=== PATIENT | female | born 1940 | race Caucasian/White ===

== ENCOUNTER 2017-03-31 13:25 | Emergency (ER) | payer MEDICARE, OTHER ==
[~2017-03-31] VITALS: Ht 154.9 cm; Wt 52.6 kg
[~2017-03-31 13:25] MED LIST: ALPRAZOLAM0.25 MG PO; ALPRAZOLAM0.5 MG PO; ASPIRIN EC81 MG PO; BACTRIM DS TAB1 EACH PO; FLUOXETINE HCL20 MG PO; LANTUS100 UNITS/ SUB-Q; LASIX40 MG PO; METFORMIN HCL500 MG PO; METHOCARBAMOL750 MG PO; NORCO 10-325 T1 EACH PO; NORCO 5-325 TA1 EACH PO; NOVOLIN R100 UNIT/1 SUB-Q; OMEPRAZOLE20 MG PO; PREDNISONE10 MG PO; PREDNISONE20 MG PO; PROAIR HFA8.5 GM IH; QVAR7.3 GM IH; SINGULAIR10 MG PO; SOMA350 MG PO; ZESTRIL10 MG PO
[2017-03-31] MEDS ORDERED: DOXYCYCLINE HY100 MG PO (14:19)
== END 2017-03-31 14:41 | disposition home or self-care (01) ==
LOC: ED 13:25
DX: L03.114 Cellulitis of left upper limb (principal); S51.851A Open bite of right forearm, initial encounter; E11.9 Type 2 diabetes mellitus without complications; J44.9 Chronic obstructive pulmonary disease, unspecified; I25.2 Old myocardial infarction; F17.200 Nicotine dependence, unspecified, uncomplicated; Z88.0 Allergy status to penicillin; Z91.030 Bee allergy status; Z79.899 Other long term (current) drug therapy; Z79.891 Long term (current) use of opiate analgesic; Z79.82 Long term (current) use of aspirin; Z79.84 Long term (current) use of oral hypoglycemic drugs; W54.0XXA Bitten by dog, initial encounter
CPT/HCPCS: 99283

== ENCOUNTER 2019-09-13 16:18 | Emergency (ER) | payer MEDICARE ==
[~2019-09-13] VITALS: Ht 154.9 cm; Wt 52.6 kg
[~2019-09-13 16:18] MED LIST changes: +DOXYCYCLINE HY100 MG PO
--- OUTSIDE RECORDS SUMMARY | 2019-09-13 16:20 | XMS ---
PreManage Notification: JAVI MARC Security [employer] Appointments Supervisor Events No recent Security Events currently on file CRITERIA MET - PDMP CARE PROVIDERS YANDY WISE Primary Care Current PHONE: Unknown Jose Luis has no Care Guidelines for this patient. ESocorro VISIT COUNT (12 MO.) 1 [facility] TOTAL 1 NOTE: Visits indicate total known visits. ED/UCC VISIT TRACKING (12 MO.) 09/13/2019 16:19 [facility] [place] TYPE: Emergency COMPLAINT: - BACK PAIN INPATIENT VISIT TRACKING (12 MO.) No inpatient visits to display in this time frame [email or web address]
== END 2019-09-13 16:45 | disposition home or self-care (01) ==
LOC: ED 16:18
DX: M54.5 Low back pain (principal); E11.9 Type 2 diabetes mellitus without complications; J44.9 Chronic obstructive pulmonary disease, unspecified; F41.9 Anxiety disorder, unspecified; I25.2 Old myocardial infarction; F17.200 Nicotine dependence, unspecified, uncomplicated; Z88.0 Allergy status to penicillin; Z91.030 Bee allergy status; Z79.899 Other long term (current) drug therapy; Z79.84 Long term (current) use of oral hypoglycemic drugs; Z79.82 Long term (current) use of aspirin
CPT/HCPCS: 99283; A9270

== ENCOUNTER 2019-10-25 12:40 | Inpatient (IN) | payer MEDICARE, OTHER ==
[~2019-10-25] VITALS: Ht 154.9 cm; Wt 57.6 kg
--- OUTSIDE RECORDS SUMMARY | 2019-10-25 12:42 | XMS ---
PreManage Notification: JAVI MARC Security Public Information Coordinator Events No recent Security Events currently on file CRITERIA MET - PDMP CARE PROVIDERS DION RODRÍGUEZ Physician 09/16/2019-Current PHONE: Unknown YANDY WISE Primary Care Current PHONE: Unknown Jose Luis has no Care Guidelines for this patient. Georgette VISIT COUNT (12 MO.) 2 MELODY Ann TOTAL 2 NOTE: Visits indicate total known visits. ED/UCC VISIT TRACKING (12 MO.) 10/25/2019 12:40 [facility] [place] TYPE: Emergency COMPLAINT: - FEVER, BODY ACHES 09/13/2019 16:19 [facility] [place] TYPE: Emergency COMPLAINT: - BACK PAIN DIAGNOSES: - terminal gauger (current) use of oral hypoglycemic drugs - Other exterminator helper termite (current) drug therapy - Allergy status to penicillin - Old myocardial infarction - Bee allergy status - Low back pain - Nicotine dependence, unspecified, uncomplicated - 1 Type 2 diabetes mellitus without complications - FCI (current) use of aspirin - Chronic obstructive pulmonary disease, unspecified - Anxiety disorder, unspecified INPATIENT VISIT TRACKING (12 MO.) No inpatient visits to display in this time frame [email or web address]
[2019-10-25] MEDS ORDERED: TRAZODONE HCL50 MG PO (13:06)
[2019-10-25] MEDS ORDERED: SERTRALINE HCL50 MG PO (13:06)
[2019-10-25] MEDS ORDERED: NITROFURANTOIN100 M1 PO (13:06)
[2019-10-25] MEDS ORDERED: PULMICORT FLE180 MCG INH (13:07)
[2019-10-25] MEDS ORDERED: VENTOLIN HFA18 GM INH (13:07)
[2019-10-25] MEDS ORDERED: TIZANIDINE HCL4 MG PO (13:08)
--- NOTE | 2019-10-25 17:00 | NUR ---
PATIENT ARRIVED TO THE CCU VIA STRETCHER WITH AMANDA RN. PATIENT TRANSFERED TO THE BED ON HER OWN. PATIENT IS WEAK. PATIENTS BLOOD PRESSURE IN THE 90'S UPON ARRIVAL. WILL CONTINUE TO CLOSELY MONITOR.
--- NOTE | 2019-10-25 18:29 | NUR ---
PATIENT RESTING IN BED. PATIENT RECIEVING A BOLUS OVER 2 HOURS. PATIENTS BLOOD PRESSURE BETTER AT THIS TIME. PATIENT ATE MASHED POTATOES AND GRAVY AND TOLERATED WELL. GAVE INSULIN FOR BS. PATIENT RESTING IN BED TALKING ON THE PHONE. WILL CONTINUE TO CLOSELY MONITOR.
--- NOTE | 2019-10-25 19:30 | NUR ---
PT REPORT RECIEVED FROM CCU RN, CARE OF PATIENT ASSUMED AT THIS TIME. ASSESSMENT COMPLETED. RT IN ROOM TO ADMINISTER BREATHING TX AT THIS TIME. PT SON UPDATED VIA TELEPHONE.
--- NOTE | 2019-10-25 20:40 | EKG ---
[facility] [address] [place], [place] [address] Signed Sinus tachycardia Otherwise normal ECG No previous ECGs available Confirmed by TARIQ PAZ DO ([id number]) on 10/25/2019 8:40:02 PM Electronically Signed By: TARIQ PAZ DO 10/25/192039 PATIENT NAME: JAVI MARC Electrocardiogram DATE OF : 44 PHYSICIAN: TARIQ PAZ DO REPORT #: [id number] REPORT IS CONFIDENTIAL AND NOT TO BE RELEASED WITHOUT AUTHORIZATION
--- NOTE | 2019-10-25 20:55 | NUR ---
PT UP TO BEDSIDE COMMODE. WEAK WHEN STANDING REQUIRING ONE PERSON ASSIST. BACK IN BED, CALL LIGHT WITHIN REACH. NO FURTHER NEEDS AT THIS TIME.
--- NOTE | 2019-10-25 21:03 | NUR ---
DR PAZ IN DEPARTMENT. DISCUSSED PTS LOW BLOOD PRESSURE. PLAN ESTABLISHED AT THIS TIME TO GIVE ANOTHER 500 ML BOLUS IF PT CONTINUES TO BE HYPOTENSIVE.
--- NOTE | 2019-10-25 22:17 | NUR ---
PT RESTING IN BED WITH EYES CLOSED, BREATHING EVEN AND UNLABORED. CALL LIGHT WITHIN REACH. DENIES ANY NEEDS AT THIS TIME.
--- NOTE | 2019-10-25 22:37 | NUR ---
RECEIVED REPORT FROM DAMEON SEXTON. pt RESTING IN BED WITH EYES CLOSED, RESPIRATIONS REGULAR. CALL LIGHT WITHIN REACH.
--- NOTE | 2019-10-25 23:50 | NUR ---
LOW BP READING. IN TO ASSESS. pt LAYING ON RIGHT SIDE. MANUAL BP TAKEN. pt UP TO [facility] CUSHING AND BACK TO BED. VOIDED. BP RETAKEN, IMPROVED. TEMPERATURE TAKEN. ASSESSMENT DONE. pt REPORTED PAIN UNCHANGED FROM EARLIER "IT STILL HURTS TO STAND AND MOVE" PROVIDED ICE WATER. NO FURTHER REQUESTS AT THIS TIME. CALL LIGHT WITHIN REACH.
--- NOTE | 2019-10-26 01:45 | NUR ---
pt UP TO VOID BSC AND BACK TO BED. NO FURTHER REQUESTS AT THIS TIME. CALL LIGHT WITHIN REACH.
--- NOTE | 2019-10-26 03:40 | NUR ---
CALL LIGHT ON. pt UP TO BSC TO VOID AND BACK TO BED. pt REPORTED THAT HER PAIN WAS LESS THAN THE LAST TIME SHE WAS UP. ASSESSMENT DONE. TEMPERATURE TAKEN. NO FURTHER REQUESTS CALL LIGHT WITHIN REACH.
--- NOTE | 2019-10-26 05:33 | NUR ---
pt UP TO BSC AND BACK TO BED. REQUESTED A BREATHING TREATMENT, RT INTO DO TREATMENT. PRN PAIN MEDS FOR 9/10 PAIN. pt REPORTED BREATHING MUCH IMPROVED AFTER TREATMENT. NO FURTHER REQUESTS AT THIS TIME. CALL LIGHT WITHIN REACH.
--- NOTE | 2019-10-26 06:12 | NUR ---
pt SNORING WITH EYES CLOSED, CALL LIGHT WITHIN REACH.
--- NOTE | 2019-10-26 08:20 | NUR ---
PATIENT AWAKE AND TALKATIVE THIS AM. PT STATES, "CALL ME GRANDMA, THAT'S WHAT EVERYONE CALLS ME." PATIENT STATES SHE IS FEELING BETTER, AND HER PAIN IS BETTER OVERALL, STILL HAVING SOME IN HER FEET AND ANKLES. DR. PAZ IN ROOM TO SEE PATIENT AT THIS TIME. PT INTERESTED IN HAVING BREAKFAST THIS AM. LUNG SOUNDS REVEAL EXP WHEEZES AND DIMINISHED POTERIOR LUNG SOUNDS. ACTIVE BOWEL SOUNDS.
--- NOTE | 2019-10-26 09:51 | NUR ---
PT CALL LIGHT ON. PT REQUESTS ASSISTANCE UP TO RESTROOM. 1PA UP TO BED SIDE COMODE. PT SHAKY ON FEET BUT TRANSFERES WITH MINIMAL ASSISTANCE. PT VOIDS AND HAS BM. MARILYN CARE DONE. 1PA BACK TO BED. NO ADDITIONAL REQUESTS OR COMPLAINTS AT THIS TIME. CALL LIGHT WITHIN REACH.
--- NOTE | 2019-10-26 10:06 | NUR ---
PHYSICAL THERAPY TO BEDSIDE. WORKING WITH PT.
--- NOTE | 2019-10-26 10:29 | NUR ---
PATIENT VISITING WITH HER FAMILY MEMBERS ON THE PHONE, AND CONTINUES TO STATES SHE IS FEELING BETTER OVERALL. PT REMAINS ON ROOM AIR. WILL CONTINUE TO MONITOR. PATIENT MAY TRANSFER TO MEDICAL FLOOR LATER THIS AFTERNOON, BUT WILL REMAIN IN CCU AT THIS TIME.
--- NOTE | 2019-10-26 13:27 | NUR ---
PULSE OX DISCONNECTED, THIS RN TO ROOM TO CHECK ON PT. PULSE OX REAPPLIED, 96% ON ROOM AIR. PT REPORTS 7/10 PAIN IN BACK AND HIPS AND REQUESTS OXYCODONE AND TRAZIDINE. SEE MAR FOR MEDICATIONS GIVEN. PT RESTING ON RIGHT SIDE. NO ADDITIONAL REQUESTS OR COMPLAINTS AT THIS TIME. CALL LIGHT WITHIN REACH.
--- NOTE | 2019-10-26 13:50 | NUR ---
ASSISTED PT TO BED SIDE COMMODE.
--- NOTE | 2019-10-26 14:42 | NUR ---
PATIENT RESTING IN BED AT THIS TIME. SP02 IS 93% ON ROOM AIR. CONTINUE TO MONITOR.
[2019-10-26] MEDS ORDERED: FUROSEMIDE40 MG PO (15:27)
--- NOTE | 2019-10-26 18:00 | NUR ---
PATIENT RESTING AT THIS TIME AFTER DINNER. PT DENIED WANTING TO SHOWER TODAY AND WANTS TO DO THIS TOMORROW. PT STATES HER FEET HURT TOO BAD. PT ATE 100% OF HER MEAL THIS EVENING. PT REMAINS ON ROOM AND SP02 IS 93%. HR IN THE 60-80s. CALL LIGHT WITHIN REACH.
--- NOTE | 2019-10-26 19:40 | NUR ---
PT REPORT RECIEVED FROM CCU RN. CARE ASSUMED AT THIS TIME.
--- NOTE | 2019-10-26 20:05 | NUR ---
IN ROOM FOR ASSESSMENT AND TO ASSIST PT TO BSC. DISCCUSSED PLAN OF CARE FOR EVENING. ALL QUESTIONS ANSWERED. CALL LIGHT WITHIN REACH. PT HAS NO FURTHER NEEDS AT THIS TIME.
--- NOTE | 2019-10-26 21:52 | NUR ---
PT BACK UP TO BEDSIDE COMMODE.PT HAD SMALL INCONTINENT BM. BACK IN BED, CALL LIGHT WITHIN REACH. NO FURTHER NEEDS AT THIS TIME.
--- NOTE | 2019-10-26 23:11 | NUR ---
IN TO DO ASSESSMENT. pt REPORTED THAT SHE FEELS BETTER OVERALL THEN LAST NIGHT. REPORTED HER PAIN IS "FINE" AND STATED SHE HAD ALREADY GOTTEN HER MEDICATIONS. ASSESSMENT DONE. POSSESSIONS WITHIN REACH. RT IN TO DO NEB TREATMENT. CALL LIGHT WITHIN REACH.
--- NOTE | 2019-10-26 23:20 | NUR ---
CALL LIGHT ON. pt UP TO BSC AND BACK TO BED, VOIDED. NO FURTHER REQUESTS AT THIS TIME. CALL LIGHT WITHIN REACH.
--- NOTE | 2019-10-27 01:17 | NUR ---
pt RESTING WITH EYES CLOSED, RESPIRATIONS REGULAR AND UNLABORED. CALL LIGHT WITHIN REACH.
--- NOTE | 2019-10-27 03:43 | NUR ---
CALL LIGHT ON. pt UP TO BSC AND BACK TO BED, VOIDED. VITALS AND ASSESSMENT DONE. pt REPORTED 9/10 PAIN FROM "BEING ON MY HIPS TOO LONG" PRN PAIN MED GIVEN (SEE MAR). pt REQUESTED A BREATHING TREATMENT. RT INFORMED. CALL LIGHT WITHIN REACH.
--- NOTE | 2019-10-27 05:45 | NUR ---
pt RESTING WITH EYES CLOSED, WOKE TO VOICE. VITALS AND I&O RECORDED. DENIED PAIN AT THIS TIME. NO REQUESTS. CALL LIGHT WITHIN REACH.
--- NOTE | 2019-10-27 05:46 | NUR ---
pt TRANSFERED FROM CCU. VSS, ACCU CHECK, 60G CARB DIET. 1PA TO BSC. VOIDING QS. IV SL, IV ABX; PO ABX. NEBS, ROOM AIR. PRN PAIN MEDS X1. USES CALL LIGHT APPROPRIATELY.
--- NOTE | 2019-10-27 07:05 | NUR ---
PT RESTING SUPINE IN BED EYES CLOSED AND RESPIRATIONS EVEN AND UNLABORED. PT APPEARS TO BE SLEEPING COMFORTABLY. REPORT RECEIVED FROM DAMEON ALONSO.
--- NOTE | 2019-10-27 09:16 | NUR ---
PT ALERT AND ORIENTED WATCHING TV WHILE RESTING ON LEFT LATERAL SIDE IN BED. ASSESSMENT COMPLETED AND AM MEDS ADMINISTERED. CALL LIGHT AND H2O IN REACH. NO NEEDS OR CONCERNS VOICED. PT DENIES SOB, PAIN OR NAUSEA.
--- NOTE | 2019-10-27 09:42 | NUR ---
PATIENT UP TO BSC AND BACK TO BED, 1PA. FRESH COFFEE GIVEN. CALL LIGHT IN REACH. NO FURTHER NEEDS AT THIS TIME.
--- NOTE | 2019-10-27 14:10 | NUR ---
PT RESTING SUPINE IN BED ALERT AND ORIENTED. CALL LIGHT AND H2O IN REACH. PT ASSESSMENT COMPLETED. PT REPORTS PAIN OF 7/10 TO RIGHT HIP. PER PT REQEUST PRN ANALGESIC WAS ADMINISTERED -SEE EMAR. CMS INTACT TO RIGHT LE. PT DENIES NAUSEA OR SOB AND STATES HE IS PASSING GAS. HECTOR MUNROE AND SCDS IN PLACE.
--- NOTE | 2019-10-27 17:37 | NUR ---
PT SITTING UP IN BED WATCHING TV AND EATING LUNCH. CALL LIGHT AND H2O IN REACH. PT DENIES PAIN, SOB OR NAUSEA.
--- NOTE | 2019-10-27 18:25 | NUR ---
PATIENT UP TO BATHROOM, 1PA. CALL LIGHT IN REACH. NO FURTHER NEEDS AT THIS TIME
--- NOTE | 2019-10-27 19:48 | NUR ---
Received report from DAMEON Yoon. Pt alert, oriented, pleasant and cooperative. Bed alsrm was placed on because pt sated "I am going to snick on my own and use the bathroom without asking for help ." Education about safety was reinforced. Late pt used her call light appropriate.
--- NOTE | 2019-10-27 20:31 | NUR ---
Pt reported pain 8/10, see emar for medication administration. BG 215, administrated 3 units of humalog per sliding scale. Flushed right IV with 10 ml od NS without difficulties. DAMEON Galvez flushed Left IV earlie. Both sides are patent. Done with assessment. Teaching about safety and using of call light was reinforced.
--- NOTE | 2019-10-27 22:34 | NUR ---
WENT INTO THE PT ROOM TO ASSESS FOR PAIN. PT IN BED PLAYING WORD GAMES ON HER PHONE. REPORTED THAT SHE IS STILL IN PAIN AND "OXY DID NOT KICK IN YET". ADMINISTRATED TYLENOL 2X350 MG. WILL BE BACK TO REASSESS.
--- NOTE | 2019-10-27 23:31 | NUR ---
CALL LIGHT ANSWERED. pt RESTING IN BED. C/O 01/14 BACK PAIN. PRN MEDICATION ADMINISTERED. CALL LIGHT IN REACH. RT IN ROOM FOR BREATHING TREATMENT.
--- NOTE | 2019-10-28 01:01 | NUR ---
PT LAYING IN BED ON HER RIGHT SIDE. APPEARS ASLEEP. TV IS WORKING ON LOW VOLUME A SIDE NOISE. BED IN LOW POSITION, CALL LIGHT IN REACH.
--- NOTE | 2019-10-28 02:12 | NUR ---
PT LAYING ON HER LEFT SIDE. EYES CLOSED, APPEARS ASLEEP. BREATHING NORMALLY, NO DISTRESS NOTED. BED IN LOW POSITION, CALL LIGHT IN REACH.
--- NOTE | 2019-10-28 05:53 | NUR ---
PT WAKES UP TO VOICE. VSS. NO PAIN, NO DISTRESS. OCCASIONAL COUGH NOTED. DONE WITH ASSESSMENT.
--- NOTE | 2019-10-28 05:56 | NUR ---
HELPED PT TO USE A BATHROOM. VOIDED WITHOUT DIFFICULTIES. DID NOT REPORT ANY DISCOMFORT UPON URINATING. VOIDED 400 ML OF YELLOW URINE. SMALL BM. REPORTEED SOB WITH AMBULATION. OCCASIONAL COUGH.
--- NOTE | 2019-10-28 06:52 | NUR ---
PT WAS RESTLESS AT THE BEGINNING OF THE SHIFT. REPORTED PAIN 8/10. PRN MEDICATIONS WERE ADMINITERED. SEE MAR. PT ALERT, ORIENTED, COOPERATIVE. USED HER CALL LIGHT APPROPRIATE. HAD 2 MEDIUM BMS TONIGHT. VSS WNL. LUNG SOUND COURSE CRACKLES. OCCASIONAL COUGH NOTED IN THE MORNING. PT REPORTED SOB DURING AMBULATION TO THE BATHROOM. SPO2 AT THE RANGE 91-92% ON RA. BG 215, INSULIN WAS ADMIONISTERED PER SLIDING SCALE.
--- NOTE | 2019-10-28 07:20 | NUR ---
REPORT RECEIVED FROM DAMEON PRABHAKAR. PT RESTING ON LEFT SIDE WITH EYES CLOSED. RESPIRATIONS EVEN AND UNLABORED. BED RAILS UP. CALL LIGHT WITHIN REACH. PT ALLOWED TO REST.
--- NOTE | 2019-10-28 09:07 | NUR ---
MORNING ASSESSMENT AND MEDICATIONS DUE. RESTING IN BED. PT REPORTS 8/10 PAIN. SEE MAR FOR MEDICATION GIVEN. SBA UP TO CHAIR. PT TOLERATED AMBULATION WELL. PT DEMONSTRATES USE OF I.S. REACHING 750ML. LUNG SOUNDS SHOW EXPIRATORY WHEEZES IN RIGHT SIDE. WATER REFILLED. LINENS CHANGED. WATER REFILLED. MD TO BEDSIDE FOR ROUNDS. PT UPDATED ON PLAN OF CARE. VERBAL ORDERS TO MOVE ABX TO 1300 TODAY. PHARMACY CALLED. PT DENIES ADDITIONAL REQUESTS OR COMPLAINTS AT THIS TIME. CALL LIGHT WITHIN REACH.
--- NOTE | 2019-10-28 09:20 | NUR ---
WHILE IN ROOM, DR ALEJANDRE BROUGHT IN POLST FORM AND EXPLAINED IT TO PT. AFTER LEFT THE ROOM PT BECAME A LITTLE TEARFUL. STATING "I KNOW I HAVE LIVED A FULL WONDERFUL LIKE BUT IT'S JUST A LITTLE DIFFICULT TO THINK THIS MAY BE IT." I EXPLAINED TO PT THAT IT IS NOT THAT WE ARE EXPECTING ANYTHING TO HAPPEN RIGHT AWAY, BUT IF SOMETHING SHOULD HAPPEN IN THE FUTURE THIS LETS HER WISHES BE KNOWN TO CAREGIVERS AND TO LET FAMILY KNOW THAT YOU DID MAKE YOUR OWN DECISION FOR THE END OF YOUR LIFE. I ALSO SAID EVEN THOUGH IT IS A HARD DISCUSSION TO HAVE WITH YOUR CHILDREN IT HELPS IF THEY KNOW WHAT YOUR WISHES ARE BEFORE THAT HAPPENS. PT WAS MUCH BETTER ABOUT THIS NOW. SAID SHE IS GOING TO TALK WITH HER ADULT CHILDREN ABOUT THIS.
--- NOTE | 2019-10-28 10:12 | NUR ---
PATIENT UP TO BATHROOM AND BACK TO BED, SBA. CALL LIGHT IN REACH. NO FURTHER NEEDS AT THIS TIME
--- NOTE | 2019-10-28 10:24 | NUR ---
THIS RN TO ROOM TO CHECK ON PT. PT UP WANDERING ROOM, UNSTEADY ON FEET, GRASPING AT OBJECTS "TO MAKE SURE I STAY UP AND DONT FALL." PT ASSISTED BACK TO BED. PT REPORTS 7/10 PAIN THAT IS "MUCH BETTER." PT STATES "I'M FEELING COMFORTABLE. PERSONAL BELONGINGS WITHIN REACH. CALL LIGHT WITHIN REACH. BED ALARM PLACED. FALL PRECAUTION EDUCATION DONE WITH PT. PT VERBALIZES UNDERSTANDING. WARM BLANKET PROVIDED. NO ADDITIONAL REQUESTS OR COMPLAINTS.
--- NOTE | 2019-10-28 12:23 | NUR ---
NOOON ASSESSMENT AND MEDICATION DUE. PT UP IN BED RECEIVING BREATHING TX. LUNG SOUNDS NOW SHOW MINMAL WHEEZES. PT REPORTS OCCATIONAL COUGH. PT REPORTS 7/10 PAIN THAT IS TOLERABLE AND WOULD LIKE TO WAIT FOR ADDITIONAL PAIN MEDICATION. ABX STARTED. PT EATING LUNCH. NO ADDIITONAL REQUESTS OR COMPLAINTS AT THIS TIME. CALL LIGHT WITHIN REACH.
--- NOTE | 2019-10-28 13:44 | NUR ---
PT APPARENTLY DID NOT WANT A VISIT-ROLLED AWAY I KNOCKED AND DID NOT RESPOND. WILL CHECK BACK AGAIN
--- NOTE | 2019-10-28 14:11 | NUR ---
PATIENT IN BED RESTING WITH EYES CLOSED. CALL LIGHT IN REACH. NO FURTHER NEEDS AT THIS TIME.
--- NOTE | 2019-10-28 15:10 | NUR ---
THIS RN TO ROOM TO CHECK ON PT. PT REPORTS SHE "HAD A REALLY GOOD NAP AND FEEL MUCH BETTER." PT REPORTS 7/10 PAIN AND STATES SHE WANTS TO WAIT FOR HER PAIN MEDICAITONS "A BIT LONGER." PT WATCHING TV. NO REQUESTS OR COMPLAINTS AT THIS TIME. CALL LIGHT WITHIN REACH.
--- NOTE | 2019-10-28 16:21 | NUR ---
AFTERNOON ASSESSMETN AND DUE. PT REPORTS 03/16 PAIN THAT "IS CLIMBING." SEE MAR FOR MEDICAITON GIVEN. ASSESSMENT DONE. LUNG SOUNDS CLEAR TO DEMINISHED BUT FOR SMALL EXPIRATORY WHEEZE IN RIGHT UPPER LOBE. PT REPORTS "MY BREATHING IS MUCH BETTER." PT DEMONSTRATS USE OF I.S. REACHING 900ML. BLOOD SUGAR TAKEN. PT ANTICIPATING DINNER. NO ADITIONAL REQUESTS OR COMPLAINTS AT THIS TIME. CALL LIGHT WITHIN REACH. BED ALARM ON.
--- NOTE | 2019-10-28 17:48 | NUR ---
PT FINSHED WITH DINNER. INSULIN GIVEN. VITALS TAKEN. PT STATES SHE FEELS "MUCH BETTER." PAIN NOW AT 5. PT RESTING IN BED WATCHING TV. NO ADDIITONAL REQUESTS OR COMPLAINTS AT THIS TIME. CALL LIGHT WITHIN REACH. BED ALARM ON.
--- NOTE | 2019-10-28 18:08 | NUR ---
PT HERE FOR PNEUMONIA. IMPROVED LUNG SOUNDS THIS SHIFT WITH MINIMAL WHEEZES BY END OF SHIFT. SCHEUDLED NEB TREATMENTS AND I.S. USE, PT TOLERATING ROOM AIR THIS SHIFT WITH O2 SATURATIONS ABOVE 92%. PRN PAIN MEDICATIONS GIVEN X2 THIS SHIFT WITH GOOD RESULTS. PHYSICAL THERAPY THIS SHIFT. PT NOT STEADY ON FEET BUT FOUND UP IN ROOM, UNSTEADY. BED ALARM ON. PT UP TO CHAIR FOR 1/2 OF SHIFT. SLIDING SCALE INSULIN GIVEN WITH EACH MEAL. PT VOIDING QUANTITY SUFFICIENT. PT USES CALL LIGHT APPROPRIATLY.
--- NOTE | 2019-10-28 19:30 | NUR ---
RECEIVED REPORT FROM MORNING SHIFT. PT IMPROVING WITH ADL.
--- NOTE | 2019-10-28 20:38 | NUR ---
pt alert, oriented, pleasant. just finished her breathing treatment. reported pain 03/16. stated it is a chronic pain and "it stays there all time'. see mar for medication administration. education about safety and use of call light was reinforced. bed in low position, call light in reah. done with assessment.
--- NOTE | 2019-10-28 20:40 | NUR ---
BG 170. FLUSHED BOTH IV SITES WITHOUT DIFFICULTIES.
--- NOTE | 2019-10-28 20:57 | NUR ---
PT WAS OFFERED DIFFERENT OPTIONS TO MANAGE HER PAIN BUT SHE DECIDED TO WAIT UNTIL MIDNIGHT UNTIL HER BREATHING TREATMENT DUE.
--- NOTE | 2019-10-28 22:01 | NUR ---
ANSWERED CALL LIGHT. SBA TO THE BATHROOM. PATIENT IS BACK IN BED. PATIENT ASKED TO MEDS. PRIMARY RN AKI NOTIFIED.
--- NOTE | 2019-10-29 | NUR ---
ANSWERED CALL LIGHT. SBA TO THE BATHROOM AND BACK TO BED. ICE WATER REFILLED. NO OTHER NEEDS AT THIS TIME.
--- NOTE | 2019-10-29 01:28 | NUR ---
PT LAYING ON HER LEFT SIDE, EYES CLOSED, BREATHING NORMALLY, NO DISTRESS NOTED. BED IN LOW POSITION, CALL LIGHT IN REACH.
--- NOTE | 2019-10-29 02:46 | NUR ---
call light answered. pt was ambulated to the bathroom. voided without difficulties. sob upon ambulation. debied pain at the moment. back to sleep. done with assessment.
--- NOTE | 2019-10-29 05:49 | NUR ---
pt alert, oriented, cooperative. tolerated room air this shift with o2 saturation > 92% SOB noted with ambulation. pt not steady on her feet, one person assist at geoffrey. pt slept through most of the night. pain was managed with prn medications, given once, insulin was given per sliding scale once, see mar. VSS. voided without difficulties, no bm today.
--- NOTE | 2019-10-29 08:30 | NUR ---
OXYCODONE 10MG PO AND ZANAFLEX 4MG PO ADMIN FOR REPORTS OF BACK PAIN AND MUSCLE ACHES.
[2019-10-29] MEDS ORDERED: CEFDINIR300 MG PO (11:48)
--- NOTE | 2019-10-29 12:39 | NUR ---
PT SITTING ON BED, DRESSED AND WAITING FOR DC. PT IS PLEASANT AND SAID SHE IS FEELING MUCH BETTER. PT BEGAN TO SHARE THAT SHE WAS PLEASED WITH CARE HERE, AND BEGAN TO TELL ME ABOUT DECISIONS SHE HAS MADE FOR END OF LIFE THAT HAVE BEEN DIFFICULT FOR HER FAMILY, BUT WE SEEM TO HAVE MADE IT THROUGH. WITH DR MCCAULEY' HELP SHE DECIDED DNR/DNI POLST UPDATED BY DR ALEJANDRE. PT ADMITTED THAT "ONLY GOD KNOWS WHEN HER TIME IS UP" SHE STATED. PT REQUESTED NAMES OF HOMES AND PROVIDED END OF LIFE PLANNING GUIDE. PT SEEMS AT [place] WITH HER DECISIONS. PT REQUESTED PRAYER
--- NOTE | 2019-10-29 12:42 | NUR ---
GOT A PHONE CALL FROM PT DAUGHTER THAT IS UNDER [place] IN [place] BUT NORMALLY LIVES HERE AND CARES FOR HER MOTHER. SHE WAS CALLING TO FIND OUT IF PTS INSURANCE WOULD COVER AN AIR PURIFIER FOR HER MOTHER. THEY LIVE IN [place] WAS THE [place]LOOD ZONE AND THERE ARE ALL KINDS MOLDS, SPORES, FUNGUS, ETC AND THEY WANT ONE BECAUSE OF THAT. I TOLD HER THAT THE INSURANCE DOES NOT COVER THOSE. SHE THANKED ME. DENIED FURTHER QUESTIONS HER IS WITH PT UNTIL SHE CAN GET HOME 14 DAYS FROM NOW.
== END 2019-10-29 12:28 | disposition home or self-care (01) | DRG 871 ==
LOC: ED 12:40 → CCU 15:49 → MS 10-26 23:00
PROVIDERS: ADMIT Student in an Organized Health Care Education/Training Program
DX: A41.52 Sepsis due to Pseudomonas (principal); J14 Pneumonia due to Hemophilus influenzae; J15.1 Pneumonia due to Pseudomonas; E87.1 Hypo-osmolality and hyponatremia; N17.9 Acute kidney failure, unspecified; J44.0 Chronic obstructive pulmonary disease with (acute) lower respiratory infection; I50.32 Chronic diastolic (congestive) heart failure; A41.3 Sepsis due to Hemophilus influenzae; L27.0 Generalized skin eruption due to drugs and medicaments taken internally; T37.0X5A Adverse effect of sulfonamides, initial encounter; R91.8 Other nonspecific abnormal finding of lung field; I11.0 Hypertensive heart disease with heart failure; E11.9 Type 2 diabetes mellitus without complications; K21.9 Gastro-esophageal reflux disease without esophagitis; F39 Unspecified mood [affective] disorder; F17.200 Nicotine dependence, unspecified, uncomplicated; R52 Pain, unspecified; Z85.118 Personal history of other malignant neoplasm of bronchus and lung; Z90.2 Acquired absence of lung [part of]; Z88.0 Allergy status to penicillin; Z88.2 Allergy status to sulfonamides; Z79.84 Long term (current) use of oral hypoglycemic drugs; Z79.82 Long term (current) use of aspirin; Z79.891 Long term (current) use of opiate analgesic; Z79.51 Long term (current) use of inhaled steroids; Z79.899 Other long term (current) drug therapy; Z66 Do not resuscitate
CPT/HCPCS: 36415; 51701; 71046; 80048; 80053; 81001; 83605; 83735; 85025; 87070; 87077; 87088; 87185; 87186; 87205; 87449; 87502; 87899; 93005; 93010; 94640; 94664; 94667; 94668; 94760; 97110; 97116; 97162; 97165; 97535; 99285-25; 99406; J0696; J1650; J1815; J1956; J3475; J7121

== ENCOUNTER 2020-02-24 17:09 | Emergency (ER) | payer MEDICARE ==
[~2020-02-24] VITALS: Ht 154.9 cm; Wt 57.6 kg
--- OUTSIDE RECORDS SUMMARY | ~2020-02-24 | XMS | Encounter Summary ---
Demographics + + + | Address | [address] [place] [address] Ln | | | [place] [address] | + + + | Home Phone | | + + + | Preferred Language | Unknown | + + + | Marital Status | | + + + | Confucianism Affiliation | LINDSAY | + + + | Race | White | + + + | Ethnic Group | Not or | + + + Author + + + | Author | [facility] | + + + | Organization | [facility] | + + + | Address | Unknown | + + + | Phone | Unavailable | + + + Support + + + + + | Name | Relationship | Address | Phone | + + + + + | Jeni Shirley | ECON | UA | | | | | [place] [address] | | + + + + + Care Team Providers + +------+ + | Care President And Chief Commercial Officer Name | Role | Phone | + +------+ + | No Pcp Per Patient | PCP | Unavailable | + +------+ + Reason for Visit + + + | Reason | Comments | + + + | Establish care | | + + + Encounter Details +--------+---------+ + + + | Date | Type | Department | Care Team | Description | +--------+---------+ + + + | 07/01/ | Office | [facility] | Eladio Lynch, | UNSPECIFIED BACKACHE | | 2013 | Visit | at [facility] | MD [address] | (Primary Dx); | | | | [address] | [place], [place] | Generalized and | | | | [facility] | [address] | unspecified | | | | and Healing, | [phone] | atherosclerosis; | | | | Building | | Depression; COPD | | | | Floor [place], [place] | | (chronic obstructive | | | | [address] | | pulmonary disease) | | | | [phone] | | (HCC); DM W/O | | | | | | COMPLICATION TYPE | | | | | | II; HTN | | | | | | (hypertension); GERD | | | | | | (gastroesophageal | | | | | | reflux disease) | +--------+---------+ + + + Social History + +-------+ +--------+------+ | Tobacco Use | Types | Packs/Day | Years | Date | | | | | Used | | + +-------+ +--------+------+ | Current Every Day | | | 10 | | | Smoker | | | | | + +-------+ +--------+------+ + + +---------+ + | Alcohol Use | Drinks/Week | oz/Week | Comments | + + +---------+ + | Not Asked | | | | + + +---------+ + + + + | Sex Assigned at | Date Recorded | | | | + + + | Not on file | | + + + + + + + | Job Start Date | Occupation | Industry | + + + + | Not on file | Not on file | Not on file | + + + + + + + + | Travel History | Travel Start | Travel End | + + + + + + | No recent travel history available. | + + documented as of this encounter Last Filed Vital Signs + + + + + | Vital Sign | Reading | Time Taken | Comments | + + + + + | Blood Pressure | 130/64 | 07/01/2013 6:23 PM | | | | | PST | | + + + + + | Pulse | 70 | 07/01/2013 6:23 PM | | | | | PST | | + + + + + | Temperature | - | - | | + + + + + | Respiratory Rate | - | - | | + + + + + | Oxygen Saturation | - | - | | + + + + + | Inhaled Oxygen | - | - | | | Concentration | | | | + + + + + | Weight | 65.8 kg (145 lb) | 07/01/2013 6:23 PM | | | | | PST | | + + + + + | Height | - | - | | + + + + + | Body Mass Index | 27.4 | 07/23/2007 1:28 PM | | | | | PST | | + + + + + documented in this encounter Progress Notes Eladio Lynch MD - 07/12/2013 8:50 AM PSTFormatting of this note might be different fr om the original. ID: Martha Toth is a 72 y.o. female Chief Complaint : NIDDM HPI: Martha Toth is a complicated pt. Returning after a few years away to re-establish car e. Patient Active Problem List Diagnosis UNSPECIFIED ASTHMA GENERALIZED AND UNSPECIFIED ATHEROSCLEROSIS UNSPECIFIED BACKACHE CHRONIC AIRWAY OBSTRUCTION, NOT ELSEWHERE CLASSIFIED COR ATHRSCL-UNS VESSEL DEPRESSIVE DISORDER, NOT ELSEWHERE CLASSIFIED DM W/O COMPLICATION TYPE II UNSPECIFIED ESSENTIAL HYPERTENSION PURE HYPERCHOLESTEROLEMIA MALIGNANT NEOPLASM OF BRONCHUS AND LUNG, UNSPECIFIED SITE Current Outpatient Prescriptions on File Prior to Visit Medication Sig Dispense Refill Albuterol (Refill) 90 mcg/Actuation Inhalation Aerosol HFA Inhaler. Inhale 1 puff by i nhalation route every 4-6 hours as needed 1 12 ASPIRIN 325 MG ORAL TAB None Entered Blood Sugar Diagnostic (ONE TOUCH ULTRA TEST) In Vitro Strip use as directed 100 [address]QUIPMENT [address] Misc.(Non-Drug; Combo Route) USE DIRECTED 1 0 No current facility-administered medications on file prior to visit. Allergies Allergen Reactions Clarification Needed MILK,BEES, PCN,BLOOD Penicillins Hives Physical Examination Blood pressure 130/64, pulse 70, weight 65.772 kg (145 lb). Patient is alert and oriented times three. no apparent distress cv- rrr resp- cta Ext- no edema Assessment: 1. UNSPECIFIED BACKACHE HYDROcodone-acetaminophen (NORCO) 10-325 mg oral tablet, methocarb vamshi 750 mg oral tablet 2. Generalized and unspecified atherosclerosis 3. Depression busPIRone 10 mg oral tablet, FLUoxetine 20 mg oral capsule, ALPRAZolam 0.25 mg oral tablet 4. COPD (chronic obstructive pulmonary disease) beclomethasone 80 mcg/actuation inhalation Aerosol (Aero), montelukast (SINGULAIR) 10 mg oral tablet 5. 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 HTN (hypertension) lisinopril 10 mg oral tablet 7. GERD (gastroesophageal reflux disease) omeprazole 20 mg oral capsule,delayed release(DR /EC) F/u one month Radha Jennings CMA - 07/01/2013 6:25 PM PST SUBJECTIVE: Martha Toth is a 72 y.o. female who is in clinic today accompanied by daughter ASSESSMENT: Chief Complaint Patient presents with Establish care PLAN: Additional staff support provided to the patient during this encounter included: Health maintenance reviewed and documented. documented in this e ncounter Plan of Treatment Not on filedocumented as of this encounter Visit Diagnoses + + | Diagnosis | + + | UNSPECIFIED BACKACHE - Primary Backache, unspecified | + + | Generalized and unspecified atherosclerosis | + + | Depression Depressive disorder, not elsewhere classified | + + | COPD (chronic obstructive pulmonary disease) (HCC) Chronic airway obstruction, not | | elsewhere classified | + + | DM W/O COMPLICATION TYPE II Type II or unspecified type diabetes mellitus without | | mention of complication, not stated as uncontrolled | + + | HTN (hypertension) Unspecified essential hypertension | + + | GERD (gastroesophageal reflux disease) Esophageal reflux | + + documented in this encounter"
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
--- OUTSIDE RECORDS SUMMARY | ~2020-02-24 | XMS | Encounter Summary ---
Demographics + + + | Address | [address] [place] [address] Ln | | | [place] [address] | + + + | Home Phone | | + + + | Preferred Language | Unknown | + + + | Marital Status | | + + + | Restorationism Affiliation | LINDSAY | + + + | Race | White | + + + | Ethnic Group | Not or | + + + Author + + + | Author | [facility] | + + + | Organization | [facility] | + + + | Address | Unknown | + + + | Phone | Unavailable | + + + Support + + + + + | Name | Relationship | Address | Phone | + + + + + | Jeni Shirley | ECON | UA | | | | | [place] [address] | | + + + + + Care Team Providers + +------+ + | Care Patent Engineer Name | Role | Phone | + +------+ + | Eladio Lynch MD | PCP | | + +------+ + Encounter Details +--------+ + + + + | Date | Type | Department | Care Team | Description | +--------+ + + + + | 05/16/ | Office | [facility] | Eladio Lynch, | | | 2004 | Visit-ECX | [facility] at [facility] | [address] | | | | | [address] | [place], [place] | | | | | [address] | [address] | | | | | Mailcode: [place] | [phone] | | | | | [address] | | | | | | [place], [place] | | | | | | [address] | | | | | | [phone] | | | +--------+ + + + [...] + + + | Blood Pressure | 100/50 | 05/16/2005 2:04 PM | | | | | PDT | | + + + + + | Pulse | 104 | 05/16/2005 2:04 PM | | | | | PDT | | + + + + + | Temperature | - | - | | + + + + + | Respiratory Rate | 20 | 05/16/2005 2:04 PM | | | | | PDT | | + + + + + | Oxygen Saturation | 98% | 05/16/2005 2:04 PM | | | | | PDT | | + + + + + | Inhaled Oxygen | - | - | | | Concentration | | | | + + + + + | Weight | 74.4 kg (164 lb) | 05/16/2005 2:04 PM | | | | | PDT | | + + + + + | Height | - | - | | + + + + + | Body Mass Index | - | - | | + + + + + documented in this encounter Plan of Treatment Not on filedocumented as of this encounter Visit Diagnoses Not on filedocumented in this encounter"
--- OUTSIDE RECORDS SUMMARY | ~2020-02-24 | XMS | Encounter Summary ---
Demographics + + + | Address | [address] [place] [address] Ln | | | [place] [address] | + + + | Home Phone | | + + + | Preferred Language | Unknown | + + + | Marital Status | | + + + | Yazidism Affiliation | LINDSAY | + + + | Race | White | + + + | Ethnic Group | Not or | + + + Author + + + | Author | [facility] | + + + | Organization | [facility] | + + + | Address | Unknown | + + + | Phone | Unavailable | + + + Support + + + + + | Name | Relationship | Address | Phone | + + + + + | Jeni Shirley | ECON | UA | | | | | [place] [address] | | + + + + + Care Team Providers + +------+ + | Care Sewing Machine Mechanic Name | Role | Phone | + +------+ + PCP | Unavailable | + +------+ + Encounter Details +--------+ + + + + | Date | Type | Department | Care Team | Description | +--------+ + + + + | 09/19/ | Results | [facility] | Eladio Lynch, | | | 2002 | Only | Medicine at [facility] | [address] | | | | | [address] | [place], [place] | | | | | [address] | [address] | | | | | Mailcode: [place] | [phone] | | | | | [address] | | | | | | [place], [place] | | | | | | [address] | | | | | | [phone] | | | +--------+ + + + [...] + + documented as of this encounter Plan of Treatment Not on filedocumented as of this encounter Procedures + +--------+ + + + | Procedure Name | Priori | Date/Time | Associated Diagnosis | Comments | | | ty | | | | + +--------+ + + + | MICROALBUMIN/CREATIN | Routin | 09/19/2002 | | Results for this | | INE RATIO (RANDOM | e | 12:00 PM | | procedure are in the | | URINE) | | PST | | results section. | + +--------+ + + + documented in this encounter Results MICROALBUMIN/CREATININE RATIO (RANDOM URINE) (09/19/2002 12:00 PM PST) + + + + + + | Component | Value | Ref Range | Performed | Pathologist | | | | | At | Signature | + + + + + + | MICROALBUMI | < 3.0Comment: Test | <20.1 mg/L | | | | N, | performed by [facility] | | | | | [facility] | [facility] | | | | | M | [facility]. | | | | + + + + + + | URINE | 21.2 | mg/dL | | | | CREATININE | | | | | + + + + + + | MICROALBUMI | See Note | mg/g | | | | N/CREAT | | | | | | RATIO | | | | | + + + + + + + + | Specimen | + + | | + + + + + | Narrative | Performed At | + + + | Ur Microalbumin < 3.0, Unable to Calculate (Negative < | | | 20 mg/dL) | | + + + + + + + + | Performing | Address | City/State/Zipcode | Phone Number | | Organization | | | | + + + + + | [facility] | [address] | [place] [address] | | | LABORATORY | | | | + + + + + documented in this encounter Visit Diagnoses Not on filedocumented in this encounter"
--- OUTSIDE RECORDS SUMMARY | ~2020-02-24 | XMS | Encounter Summary ---
Demographics + + + | Address | [address] [place] [address] Ln | | | [place] [address] | + + + | Home Phone | | + + + | Preferred Language | Unknown | + + + | Marital Status | | + + + | Advent Affiliation | LINDSAY | + + + [...] | UA | | | | | [place] [address] | | + + + + + Care Team Providers + +------+ + | Care Client Evaluator Name | Role | Phone | + +------+ + | Eladio Lynch MD | PCP | | + +------+ + Encounter Details +--------+ + + + + | Date | Type | Department | Care Team | Description | +--------+ + + + + | 02/25/ | Office | [facility] | Note, Family | Progress Note | | 2003 | Visit-Trans | PRACTICE | Practice Clinic | | | | cribed | [...] as of this encounter Progress Notes Interface, Seamless Tube Drawer In - 01/28/2006 3:12 AM PDTCLINIC DATE: 02/25/2003 [facility] SUBJECTIVE: Ms. Toth has multiple medical problems and a medication care agreement for 120 Vicodin monthly. She is here for that refill. She also would like to discuss sleeping difficulty that she is having. MEDICATION LIST: Glipizide 2 p.o. b.i.d., metformin 850 mg t.i.d., albuterol, Atrovent, Flovent 110 mcg, Nasonex, Vicodin, Soma, amitriptyline 50 mg 2 to 3 q.h.s., Zantac 150 mg b.i.d., Avandia 4 mg, Neurontin 300 mg t.i.d., Zoloft 100 mg, Claritin 10 mg, and aspirin 325 mg. OBJECTIVE: Blood pressure is 138/82, pulse is 80, weight is 166 pounds, and CBG is 200. ASSESSMENT AND PLAN 1. Qtf-ekayewd-ihqabvkxf diabetes mellitus. We will increase her Avandia at 8 mg daily. Check hemoglobin A1c and fasting lipid panel. Follow up in 1 month. 2. Chronic pain. Refill medications x 1 month. Eladio Lynch M.D. [facility] / [place] [id number] / [id number] / [id number] / Tdocumented in this encounter Plan of Treatment Not on filedocumented as of this encounter Visit Diagnoses Not on filedocumented in this encounter"
--- OUTSIDE RECORDS SUMMARY | ~2020-02-24 | XMS | Encounter Summary ---
Demographics + + + | Address | [address] [place] [address] Ln | | | [place] [address] | + + + | Home Phone | | + + + | Preferred Language | Unknown | + + + | Marital Status | | + + + | Worship Affiliation | LINDSAY | + + + | Race | White | + + + | Ethnic Group | Not or | + + + Author + + + | Author | [facility] | + + + | Organization | [facility] | + + + | Address | Unknown | + + + | Phone | Unavailable | + + + Support + + + + + | Name | Relationship | Address | Phone | + + + + + | Jeni Shirley | ECON | UA | | | | | [place] [address] | | + + + + + Care Team Providers + +------+ + | Care Veterinary Radiologist Name | Role | Phone | + +------+ + | Eladio Lynch MD | PCP | | + +------+ + Reason for Visit + + + | Reason | Comments | + + + | Refill Request | | + + + | Medication | | | management | | + + + Encounter Details +--------+--------+ + + + | Date | Type | Department | Care Team | Description | +--------+--------+ + + + | 11/20/ | Refill | [facility] Primary Care | Eladio Lynch, | Refill Request; | | 2006 | | [facility] | MD [address] | Medication | | | | [address] | [place], [place] | management | | | | [facility] | [address] | | | | | and Healing, | [phone] | | | | | [facility] | | | | | | Floor [place], [place] | | | | | | [address] | | | | | | [phone] | | | +--------+--------+ + + + Social History + +-------+ [...]
--- OUTSIDE RECORDS SUMMARY | ~2020-02-24 | XMS | Encounter Summary ---
Demographics + + + | Address | [address] [place] [address] Ln | | | [place] [address] | + + + | Home Phone | | + + + | Preferred Language | Unknown | + + + | Marital Status | | + + + | Advent Affiliation | LINDSAY | + + + | Race | White | + + + | Ethnic Group | Not or | + + + Author + + + | Author | [facility] | + + + | Organization | [facility] | + + + | Address | Unknown | + + + | Phone | Unavailable | + + + Support + + + + + | Name | Relationship | Address | Phone | + + + + + | Jeni Shirley | ECON | UA | | | | | [place] [address] | | + + + + + Care Team Providers + +------+ + | Care Kineseologist Name | Role | Phone | + +------+ + | Eladio Lynch MD | PCP | | + +------+ + Encounter Details +--------+ + + + + | Date | Type | Department | Care Team | Description | +--------+ + + + + | 06/12/ | Office | [facility] | Note, Outpatient | Progress Note | | 1997 | Visit-Trans | MEDICINE | Clinic | [...] as of this encounter Progress Notes Interface, Ophthalmologist Retina Specialist In - 08/13/2006 5:12 AM PSTCLINIC DATE: 06/12/1998 [facility]: HISTORY OF PRESENT ILLNESS: Ms. Toth returns to clinic for follow-up and evaluation of her CT scan for staging of non-small cell lung cancer. Ms. Toth had a CT scan of the chest and upper abdomen at [facility], which reveals a T1, N0, M0 lesion. This is different from her outside CT scan from [place], [place], which revealed bulky mediastinal adenopathy. This CT scan has finally arrived and I have reviewed it. The mediastinal adenopathy was indeed present, but is definitely absent on the current scan. This has been explained to the patient along with the fact that this renders her resectable and may make it un-necessary to give any other therapy except for surgery at this time. Ms. Toth understands her disease and its prognosis and wishes to have a consultation with Thoracic Surgery, which we have arranged for the early part of next week with Dr. Nikolay Griffith. There are no new medications. No new aspects of past medical history or review of systems. PHYSICAL EXAMINATION: GENERAL: The patient is a well-developed, well-nourished white female. VITAL SIGNS: Weight is 148 pounds, blood pressure of 116/64, pulse of 92. Temperature of 36.3. CHEST: Clear. EXTREMITIES: Without cyanosis, clubbing or edema. CT SCAN: The CT scan is as described in the History of Present Illness. IMPRESSION AND PLAN: Non-small cell lung cancer. Patient has a T1, N0, M0 lesion by current CT scan and is therefore a potential candidate for resection. Her PFTs have been marginal and will probably need to be repeated. I will leave that to the discretion of Dr. Griffith. The patient's options and course of treatment have been explained to her. She understands and is eager to proceed with thoracic surgery consultation. RECOMMENDATIONS: Thoracic Surgery consultation as ordered. We will follow-up with Ms. Toht after resection should that be deemed feasible or before that to discuss therapy if Dr. Griffith has any issues that need to be resolved prior to surgery. This was a twenty-five minute visit, more than 50% of which consisted of counseling. Xuan Taylor M.D. Cheese Grader, Medicine HR/sct; ; Electronically signed by Interface, Ophthalmologist Retina Specialist In at 02/2007 5:12 AM PSTdocumented in this encounter Plan of Treatment Not on filedocumented as of this encounter Visit Diagnoses Not on filedocumented in this encounter"
--- OUTSIDE RECORDS SUMMARY | ~2020-02-24 | XMS | Encounter Summary ---
Demographics + + + | Address | [address] [place] [address] Ln | | | [place] [address] | + + + | Home Phone | | + + + | Preferred Language | Unknown | + + + | Marital Status | | + + + | Yazidism Affiliation | LINDSAY | + + + | Race | White | + + + | Ethnic Group | Not or | + + + Author + + + | Author | [facility] | + + + | Organization | [facility] | + + + | Address | Unknown | + + + | Phone | Unavailable | + + + Support + + + + + | Name | Relationship | Address | Phone | + + + + + | Jeni Shirley | ECON | [place] | | | | | [place] [address] | | + + + + + Care Team Providers + +------+ + | Care Grocery Clerk Name | Role | Phone | + +------+ + | Eladio Lynch MD | PCP | | + +------+ + Reason for Visit + + + | Reason | Comments | + + + | Refill Request | | + + + Encounter Details +--------+--------+ + + + | Date | Type | Department | Care Team | Description | +--------+--------+ + + + | 11/28/ | Refill | [facility] | Eladio Lynch, | Refill Request | | 2005 | | Medicine at [facility] | [address] | | | | | [address] [facility] | [place], [place] | | | | | [address] | [address] | | | | | Mailcode: MINDY Albarran | [phone] | | | | | [address] | | | | | | [place], [place] | | | | | | [address] | | | | | | [phone] | | | +--------+--------+ + + + [...]
--- OUTSIDE RECORDS SUMMARY | ~2020-02-24 | XMS | Encounter Summary ---
Demographics + + + | Address | [address] [place] [address] Ln | | | [place] [address] | + + + | Home Phone | | + + + | Preferred Language | Unknown | + + + | Marital Status | | + + + | Worship Affiliation | LINDSAY | + + + | Race | White | + + + | Ethnic Group | Not or | + + + Author + + + | Author | [facility] | + + + | Organization | [facility] | + + + | Address | Unknown | + + + | Phone | Unavailable | + + + Support + + + + + | Name | Relationship | Address | Phone | + + + + + | Jeni Shirley | ECON | UA | | | | | [place] [address] | | + + + + + Care Team Providers + +------+ + | Care Wagon Washer Name | Role | Phone | + [...] Description | +--------+--------+ + + + | 09/12/ | Refill | [facility] | Lynch, Eladio, | Refill Request | | 2006 | | at [facility] | MD [address] | | | | | [address] | [facility] [place] | | | | | [facility] | [address] | | | | | and Healing, | [phone] | | | | | Building | | | | | | Floor [facility] [place] | | | | | | [address] | | | | | | [phone] | | | +--------+--------+ + + + [...] + | Diagnosis | + + | Backache, unspecified | + + documented in this encounter"
--- OUTSIDE RECORDS SUMMARY | ~2020-02-24 | XMS | Encounter Summary ---
Demographics + + + | Address | [address] [place] [address] Ln | | | [place] [address] | + + + | Home Phone | | + + + | Preferred Language | Unknown | + + + | Marital Status | | + + + | Congregation Affiliation | LINDSAY | + + + | Race | White | + + + | Ethnic Group | Not or | + + + Author + + + | Author | [facility] | + + + | Organization | [facility] | + + + | Address | Unknown | + + + | Phone | Unavailable | + + + Support + + + + + | Name | Relationship | Address | Phone | + + + + + | Jeni Shirley | ECON | UA | | | | | [place] [address] | | + + + + + Care Team Providers + +------+ + | Care Hospitality Coordinator Name | Role | Phone | + +------+ + | Ealdio Lynch MD | PCP | | + +------+ + Encounter Details +--------+ + + + + | Date | Type | Department | Care Team | Description | +--------+ + + + + | 06/16/ | Office | [facility] | Note, [...] as of this encounter Progress Notes Interface, Typewriter Repairer In - 07/13/2006 1:07 AM PSTCLINIC DATE: 06/16/1999 [facility] PROBLEM 1. Fall. 2. Low back pain, possible sacral radiculopathy 953.3. SUBJECTIVE: The patient is here because of a fall out of bed two weeks ago. She was rolling over to get away from her encroaching , and she did not realize how close she was to the edge of the bed. She fell out of the bed and landed on her sacrum. She had tingling and numbness up and down her spine for a few minutes after this, but then seemed to get better. PAST MEDICAL HISTORY: Significant for two major lumbar back surgeries and persistent pain from that. She takes Vicodin for this. She was well until a week ago when she was putting heating pad on the low back and noticed, starting about a week ago, that she had numbness in the bilateral mid buttocks and then around the rectum and was unable to feel the heating pad. She complains of diarrhea, sometimes urgent, but no true incontinence since the time of the accident. She has had no urinary incontinence, and she is able to walk well, but she has pain in the sacrum and towards the rectal area when she walks. OBJECTIVE: GENERAL: She is not in acute distress. She walks easily in the room without assistance, gets undressed, and gets up on the table without assistance. BACK: She has a long scar from about L3 to the sacrum which is well healed and is about 10 years old by history. She has exquisite pain with palpation of the area around S2. She has no crepitus. She has exquisite pain bilaterally in the sacroiliac joints. She has numbness to fine touch and pin prick in the perirectal region. She has a normal sphincter tone in the rectum and the anal wink is not appreciated on either side. EXTREMITIES: The examination of the lower extremities is normal with the exception of a diminished ankle jerk on the right consistent with her previous neuropathy. Straight leg lifting test and heel drop test are negative. ASSESSMENT: Most likely soft tissue injury, but I am concerned with the perirectal problem regarding this trauma. PLAN: I have ordered an MRI scan. I told her that I expected that she stop using the heating pad and give this some time, she would get better. I warned her to come into the emergency room immediately with any progressive lower extremity weakness or true incontinence of bowels and bladder. I told her that if she was clearly getting better upon the MRI that was ordered, she could cancel it. Benny Cardenas M.D. LARS / KIMBERLEY [id number] / [id number] / [id number] / Tdocumented in this encounter Plan of Treatment Not on filedocumented as of this encounter Visit Diagnoses Not on filedocumented in this encounter"
--- OUTSIDE RECORDS SUMMARY | ~2020-02-24 | XMS | Encounter Summary ---
Demographics + + + | Address | [address] [place] [address] Ln | | | [place] [address] | + + + | Home Phone | | + + + | Preferred Language | Unknown | + + + | Marital Status | | + + + | Gnosticist Affiliation | LINDSAY | + + + | Race | White | + + + | Ethnic Group | Not or | + + + Author + + + | Author | [facility] | + + + | Organization | [facility] | + + + | Address | Unknown | + + + | Phone | Unavailable | + + + Support + + + + + | Name | Relationship | Address | Phone | + + + + + | Jeni Shirley | ECON | UA | | | | | [place] [address] | | + + + + + Care Team Providers + +------+ + | Care Plant Maintenance Manager Name | Role | Phone | + +------+ + | Unknown | PCP | Unavailable | + +------+ + Encounter Details +--------+ + + + + | Date | Type | Department | Care Team | Description | +--------+ + + + + | 05/10/ | Results | Registration [id number] | | | | 1998 | Only | [address] | | | | | | [address] Mailcode: RPB[address] | | | | | | [place], [place] | | | | | | [address] | | | | | | [phone] | | | +--------+ + + + [...] | + +--------+ + + + | CHEMISTRY TESTS 4 | Routin | 05/10/1999 | | Results for this | | | e | 3:39 PM | | procedure are in the | | | | PDT | | results section. | + +--------+ + + + | CBC TESTS 2 | Routin | 05/10/1999 | | Results for this | | | e | 3:39 PM | | procedure are in the | | | | PDT | | results section. | + +--------+ + + + documented in this encounter Results CHEMISTRY TESTS 4 (05/10/1999 3:39 PM PDT) + + + + + + | Component | Value | Ref Range | Performed | Pathologist | | | | | At | Signature | + + + + + + | SODIUM, | 139. | mmol/l | | | | PLASMA | | | | | | (LAB) | | | | | + + + + + + | POTASSIUM, | 3.6 | mmol/l | | | | PLASMA | | | | | | (LAB) | | | | | + + + + + + | CHLORIDE, | 99. | mmol/l | | | | PLASMA | | | | | | (LAB) | | | | | + + + + + + | TOTAL CO2, | 29. | mmol/l | | | | PLASMA | | | | | | (LAB) | | | | | + + + + + + | BUN, PLASMA | 8. | mg/dL | | | | (LAB) | | | | | + + + + + + | CREATININE | 0.6 (L) | mg/dL | | | | PLASMA | | | | | | (LAB) | | | | | + + + + + + | GLUCOSE, | 91. | mg/dL | | | | PLASMA | | | | | | (LAB) | | | | | + + + + + + | CALCIUM, | 8.9 | mg/dL | | | | PLASMA | | | | | | (LAB) | | | | | + + + + + + | AST(SGOT) | 25. | U/L | | | + + + + + + | ALK PHOS | 61. | U/L | | | + + + + + + | BILIRUBIN | 0.4 | mg/dL | | | | TOTAL | | | | | + + + + + + | TOTAL | 6.7 | GM/DL | | | | PROTEIN, | | | | | | PLASMA | | | | | | (LAB) | | | | | + + + + + + | ALBUMIN, | 3.9 | GM/DL | | | | PLASMA | | | | | | (LAB) | | | | | + + + + + + + + | Specimen | + + | | + + + + + + + | Performing | Address | City/State/Zipcode | Phone Number | | Organization | | | | + + + + + | [facility] | [address] | [place] [address] | | | PATHOLOGY | [address] | | | + + + + + CBC TESTS 2 (05/10/1999 3:39 PM PDT) + + + + + + | Component | Value | Ref Range | Performed | Pathologist | | | | | At | Signature | + + + + + + | WHITE CELL | 9.4 | K/CU MM | | | | COUNT | | | | | + + + + + + | RED CELL | 4.2 | M/CU MM | | | | COUNT | | | | | + + + + + + | HEMOGLOBIN | 13. | GM/DL | | | + + + + + + | HEMATOCRIT | 36.3 (L) | % | | | + + + + + + | MCV | 86.3 | FL | | | + + + + + + | MCH | 30.9 | PG | | | + + + + + + | MCHC | 35.8 (H) | GM/DL | | | + + + + + + | RDW | 12.6 | % | | | + + + + + + | PLATELET | 301. | K/CU MM | | | | COUNT | | | | | + + + + + + | MPV | 8.7 | FL | | | + + + + + + | NEUTROPHIL | 59. | % | | | | % | | | | | + + + + + + | LYMPHOCYTE | 28. | % | | | | % | | | | | + + + + + + | MONOCYTE % | 7. | % | | | + + + + + + | EOS % | 5. | % | | | + + + + + + | BASO % | 2. | % | | | + + + + + + | NEUTROPHIL | 5.6 | K/CU MM | | | | # | | | | | + + + + + + | LYMPHOCYTE | 2.6 | K/CU MM | | | | # | | | | | + + + + + + | MONOCYTE # | 0.6 | K/CU MM | | | + + + + + + | EOS # | 0.5 (H) | K/CU MM | | | + + + + + + | BASO # | 0.1 | K/CU MM | | | + + + + + + + + | Specimen | + + | | + + + + + + + | Performing | Address | City/State/Zipcode | Phone Number | | Organization | | | | + + + + + | [facility] | [address] | [place] [address] | | | PATHOLOGY | [address] | | | + + + + + documented in this encounter Visit Diagnoses Not on filedocumented in this encounter"
--- OUTSIDE RECORDS SUMMARY | ~2020-02-24 | XMS | Encounter Summary ---
Demographics + + + | Address | [address] [place] [address] Ln | | | [place] [address] | + + + | Home Phone | | + + + | Preferred Language | Unknown | + + + | Marital Status | | + + + | Sikhism Affiliation | LINDSAY | + + + | Race | White | + + + | Ethnic Group | Not or | + + + Author + + + | Author | [facility] | + + + | Organization | [facility] | + + + | Address | Unknown | + + + | Phone | Unavailable | + + + Support + + + + + | Name | Relationship | Address | Phone | + + + + + | Jeni Shirley | ECON | [place] | | | | | [place] [address] | | + + + + + Care Team Providers + +------+ + | Care [place]ffer[place] Construction Supervisor Name | Role | Phone | + +------+ + PCP | Unavailable | + +------+ + Encounter Details +--------+ + + + + | Date | Type | Department | Care Team | Description | +--------+ + + + + | 04/02/ | Office | [facility] | Note, Family | Progress Note | | 2004 | Visit-Trans | PRACTICE | Practice Clinic [...] as of this encounter Progress Notes Interface, Sleep Technologist In - 03/06/2005 8:09 AM PDT [id number] TARI CALDWELL Clinic Date: 04/02/2004 [facility] Subjective: Ms. Toth is here today to review her medications for NIDDM transition to 70/30 insulin from oral hypoglycemics recently. She is in need of needles, and she does need strips. Her glucose a.m. laboratories are just under 100 and does have couple of hypoglycemic episodes to report. Review of Systems: She had a mammogram done yesterday as review of systems is positive for back pain, occasional nausea, and sleep disorder. All others are negative. Objective General: She is in no apparent distress. Vital Signs: Blood pressure 120/64. HEENT: Pupils are equal, round, and reactive to light and accommodation. EOMI. Neck: No carotid bruits. Extremities: Good radial pulse peripherally. Deep tendon reflexes are intact and symmetric. Assessment: Mpp-ynjiumc-awoakgwuz diabetes mellitus. Plan: Baseline laboratories, syringes, 1 type strips, weaned off metformin, continued work on routine exercise, and monitor glycemic control. Eladio Lynch M.D. ROSIE / KIMBERLEY [id number] / [id number] / [id number] / documented i n this encounter Plan of Treatment Not on filedocumented as of this encounter Visit Diagnoses Not on filedocumented in this encounter"
--- OUTSIDE RECORDS SUMMARY | ~2020-02-24 | XMS | Encounter Summary ---
Demographics + + + | Address | [address] [place] [address] Ln | | | [place] [address] | + + + | Home Phone | | + + + | Preferred Language | Unknown | + + + | Marital Status | | + + + | Mormonism Affiliation | LINDSAY | + + + | Race | White | + + + | Ethnic Group | Not or | + + + Author + + + | Author | [facility] | + + + | Organization | [facility] | + + + | Address | Unknown | + + + | Phone | Unavailable | + + + Support + + + + + | Name | Relationship | Address | Phone | + + + + + | Jeni Shirley | ECON | [place]A | | | | | [place] [address] | | + + + + + Care Team Providers + +------+ + | Care Camera Engineer Name | Role | Phone | + +------+ + | Eladio Lynch MD | PCP | | + +------+ + Reason for Visit + + + | Reason | Comments | + + + | Weight gain | | + + + Encounter Details +--------+---------+ + + + | Date | Type | Department | Care Team | Description | +--------+---------+ + + + | 11/07/ | Office | [facility] | Eladio Lynch, | Fatigue; Shortness | | 2005 | Visit | Medicine at [facility] | [address] | of Breath; NIDDM | | | | [place] [address] | [place], [place] | (Non-Insulin | | | | [address] | [address] | Dependent Diabetes | | | | Mailcode: MINDY Albarran | [phone] | Mellitus); | | | | [address] | | Unspecified Backache | | | | [place], [place] | | | | | | [address] | | | | | | [phone] | | | +--------+---------+ + + + Social History [...] + + + | Blood Pressure | 132/76 | 11/07/2005 2:30 PM | | | | | PDT | | + + + + + | Pulse | 92 | 11/07/2005 2:30 PM | | | | | PDT | | + + + + + | Temperature | - | - | | + + + + + | Respiratory Rate | - | - | | + + + + + | Oxygen Saturation | 95% | 11/07/2005 2:30 PM | | | | | PDT | | + + + + + | Inhaled Oxygen | - | - | | | Concentration | | | | + + + + + | Weight | 87.5 kg (193 lb) | 11/07/2005 2:30 PM | | | | | PDT | | + + + + + | Height | - | - | | + + + + + | Body Mass Index | - | - | | + + + + + documented in this encounter Progress Notes Missy Gonzalez Cma - 11/07/2005 3:21 PM PDTFormatting of this note might be different fro m the original. 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 Her medication: taking medications as prescribed all of the time. Diabetic diet: achieving goals all of the time. Home glucose tests are performed regularly. Review of systems: weight gain , sob, fatigue. Recent changes: 20 lb's possibly Treatment goals: Glycemic control: excellent Counseling/Education: focused on the need to adhere to the prescribed ADA diet. Labs: HEMOGLOBIN A1C (%) Date Value 03/19/2004 6.4* LDL CHOLEST, MEASURED (mg/dL) Date Value 10/17/2003 69 LDL CHOLESTEROL, CALCULATED (no units) Date Value 10/17/2003 [facility]Meas TRIGLYCERIDES (mg/dL) Date Value 10/17/2003 441* MICROALBUMIN/CREAT RATIO (mg/g) Date Value 09/19/2002 See Note IMPRESSION: DM II. Control = acceptable. PLAN: Discussed general issues about diabetes pathophysiology and management. 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 documented in this en counter Plan of Treatment + + +--------+ + + | Name | Type | Priori | Associated Diagnoses | Order Schedule | | | | ty | | | + + +--------+ + + | NONINVASV OXYGEN | Procedures | Routin | Shortness of | Ordered: 11/07/2005 | | SATUR,MULTIPLE-BACK | | e | Breath | | | OFFICE | | | | | + + +--------+ + + documented as of this encounter Procedures + +--------+ + + + | Procedure Name | Priori | Date/Time | Associated Diagnosis | Comments | | | ty | | | | + +--------+ + + + | COMPLETE METABOLIC | Routin | 11/07/2005 | Fatigue | Results for this | | SET | e | 3:27 PM | | procedure are in the | | (NA,K,CL,CO2,BUN,CRE | | PDT | | results section. | | AT,GLUC,CA,AST,ALT,B | | | | | | OVIDIO TOTAL,ALK | | | | | | PHOS,ALB,PROT TOTAL) | | | | | + +--------+ + + + | CBC ONLY | Routin | 11/07/2005 | Fatigue | Results for this | | | e | 3:27 PM | | procedure are in the | | | | PDT | | results section. | + +--------+ + + + | TSH | Routin | 11/07/2005 | Fatigue | Results for this | | | e | 3:27 PM | | procedure are in the | | | | PDT | | results section. | + +--------+ + + + | HEMOGLOBIN A1C, | Routin | 11/07/2005 | Fatigue | Results for this | | BLOOD | e | 3:27 PM | | procedure are in the | | | | PDT | | results section. | + +--------+ + + + documented in this encounter Results HEMOGLOBIN A1C (11/07/2005 3:27 PM PDT) + + + + + + | Component | Value | Ref Range | Performed | Pathologist | | | | | At | Signature | + + + + + + | HEMOGLOBIN | 10.4 (H)Comment: | <5.8 % | | | | A1C | Non-Diabetic: | | | | | | | | | | | | 4.0-5.7 % Risk For | | | | | | Chronic Complications | | | | | | in Adults: Low | | | | | | risk of complications: | | | | | | <7.0 | | | | | | % Intermediate | | | | | | risk of complications | | | | | | 7.0-7.9 % High | | | | | | risk of complications | | | | | | >7.9 % | | | | | | Test performed by | | | | | | [facility] | | | | | | [facility]. | | | | + + + + + + + + | Specimen | + + | Blood - Blood | + + + + + + + | Performing | Address | City/State/Zipcode | Phone Number | | Organization | | | | + + + + + | [facility] | [address] | [place] [address] | | | LABORATORY | | | | + + + + + CBC ONLY WITH PLATELET (11/07/2005 3:27 PM PDT) + +-------+ + + + | Component | Value | Ref Range | Performed | Pathologist | | | | | At | Signature | + +-------+ + + + | WHITE CELL | 9.7 | 4.4 - 11.0 K/cu | [facility] | | | COUNT | | mm | DEPARTMENT | | | | | | OF | | | | | | PATHOLOGY | | + +-------+ + + + | RED CELL | 4.53 | 4.00 - 5.20 | [facility] | | | COUNT | | M/cu mm | DEPARTMENT | | | | | | OF | | | | | | PATHOLOGY | | + +-------+ + + + | HEMOGLOBIN | 13.4 | 12.0 - 16.0 | [facility] | | | | | g/dL | DEPARTMENT | | | | | | OF | | | | | | PATHOLOGY | | + +-------+ + + + | HEMATOCRIT | 38.8 | 36.0 - 46.0 % | [facility] | | | | | | DEPARTMENT | | | | | | OF | | | | | | PATHOLOGY | | + +-------+ + + + | MCV | 85.7 | 80.0 - 96.0 fL | [facility] | | | | | | DEPARTMENT | | | | | | OF | | | | | | PATHOLOGY | | + +-------+ + + + | MCHC | 34.4 | 33.4 - 35.5 | [facility] | | | | | g/dL | DEPARTMENT | | | | | | OF | | | | | | PATHOLOGY | | + +-------+ + + + | RDW | 12.2 | 11.5 - 15.0 % | [facility] | | | | | | DEPARTMENT | | | | | | OF | | | | | | PATHOLOGY | | + +-------+ + + + | PLATELET | 309 | 150 - 400 K/cu | [facility] | | | COUNT | | mm | DEPARTMENT | | | | | | OF | | | | | | PATHOLOGY | | + +-------+ + + + + + | Specimen | + + | Blood | + + + + + + + | Performing | Address | City/State/Zipcode | Phone Number | | Organization | | | | + + + + + | [facility] | [address] | [place] [address] | | | PATHOLOGY | [address] | | | + + + + + | [facility] | [address] | [place] [address] | | | PATHOLOGY | [address] | | | + + + + + TSH-THYROID STIM HORMONE (11/07/2005 3:27 PM PDT) + + + + + + | Component | Value | Ref Range | Performed | Pathologist | | | | | At | Signature | + + + + + + | TSH | 0.31Comment: Test | 0.28 - 5.00 | | | | | performed by [facility] | uIU/ml | | | | | [facility] | | | | | | Laboratories. | | | | + + + + + + + + | Specimen | + + | Blood | + + + + + + + | Performing | Address | City/State/Zipcode | Phone Number | | Organization | | | | + + + + + | [facility] | [address] | [place] [address] | | | LABORATORY | | | | + + + + + COMP METABOLIC SET (11/07/2005 3:27 PM PDT) + +---------+ + + + | Component | Value | Ref Range | Performed | Pathologist | | | | | At | Signature | + +---------+ + + + | GLUCOSE, | 102 | 65 - 110 mg/dL | [facility] | | | PLASMA | | | DEPARTMENT | | | (LAB) | | | OF | | | | | | PATHOLOGY | | + +---------+ + + + | BUN, PLASMA | 18 | 6 - 20 mg/dL | [facility] | | | (LAB) | | | DEPARTMENT | | | | | | OF | | | | | | PATHOLOGY | | + +---------+ + + + | CREATININE | 1.2 (H) | 0.6 - 1.1 mg/dL | [facility] | | | PLASMA | | | DEPARTMENT | | | (LAB) | | | OF | | | | | | PATHOLOGY | | + +---------+ + + + | TOTAL | 7.7 | 6.1 - 7.9 g/dL | [facility] | | | PROTEIN, | | | DEPARTMENT | | | PLASMA | | | OF | | | (LAB) | | | PATHOLOGY | | + +---------+ + + + | ALBUMIN, | 3.8 | 3.5 - 4.7 g/dL | [facility] | | | PLASMA | | | DEPARTMENT | | | (LAB) | | | OF | | | | | | PATHOLOGY | | + +---------+ + + + | CALCIUM, | 9.8 | 8.5 - 10.5 | [facility] | | | PLASMA | | mg/dL | DEPARTMENT | | | (LAB) | | | OF | | | | | | PATHOLOGY | | + +---------+ + + + | BILIRUBIN | 0.4 | 0.3 - 1.2 mg/dL | [facility] | | | TOTAL | | | DEPARTMENT | | | | | | OF | | | | | | PATHOLOGY | | + +---------+ + + + | ALK PHOS | 108 | 53 - 141 U/L | [facility] | | | | | | DEPARTMENT | | | | | | OF | | | | | | PATHOLOGY | | + +---------+ + + + | AST(SGOT) | 36 | 15 - 41 U/L | [facility] | | | | | | DEPARTMENT | | | | | | OF | | | | | | PATHOLOGY | | + +---------+ + + + | SODIUM, | 140 | 136 - 145 | [facility] | | | PLASMA | | mmol/L | DEPARTMENT | | | (LAB) | | | OF | | | | | | PATHOLOGY | | + +---------+ + + + | POTASSIUM, | 4.0 | 3.5 - 5.1 | [facility] | | | PLASMA | | mmol/L | DEPARTMENT | | | (LAB) | | | OF | | | | | | PATHOLOGY | | + +---------+ + + + | CHLORIDE, | 102 | 98 - 107 mmol/L | [facility] | | | PLASMA | | | DEPARTMENT | | | (LAB) | | | OF | | | | | | PATHOLOGY | | + +---------+ + + + | TOTAL CO2, | 28 | 23 - 29 mmol/L | [facility] | | | PLASMA | | | DEPARTMENT | | | (LAB) | | | OF | | | | | | PATHOLOGY | | + +---------+ + + + | ALT (SGPT) | 16 | 13 - 48 U/L | [facility] | | | | | | DEPARTMENT | | | | | | OF | | | | | | PATHOLOGY | | + +---------+ + + + + + | Specimen | + + | Blood | + + + + + | Narrative | Performed At | + + + | [id number] Estimated GFR = 48 mL/min/1.73 sq m if non- | [facility] | | [id number] Estimated GFR = 58 mL/min/1.73 sq m if GFR | DEPARTMENT OF | | is estimated using the MDRD equation recommended by the National | PATHOLOGY | | Kidney Disease Education Program. Estimated GFR Interpretive | | | Information: <60 mL/min/1.73 sq m Chronic Kidney Disease <15 | | | mL/mon/1.73 sq m Kidney Failure Estimated GFR greater than | | | 60mL/min/1.73 is of limited clinical Value. The MDRD equation is | | | not valid in the following situations: - Patients under 18 years of | | | age - Severe malnutrition or obesity - Vegetarian diet - Rapidly | | | changing kidney function | | + + + + + + + + | Performing | Address | City/State/Zipcode | Phone Number | | Organization | | | | + + + + + | [facility] | [address] | [place] [address] | | | PATHOLOGY | [address] | | | + + + + + | [facility] | [address] | [place] [address] | | | PATHOLOGY | [address] | | | + + + + + documented in this encounter Visit Diagnoses + + | Diagnosis | + + | Fatigue Other malaise and fatigue | + + | Shortness of breath | + + | NIDDM (non-insulin dependent diabetes mellitus) Type II or unspecified type diabetes | | mellitus without mention of complication, not stated as uncontrolled | + + | Backache, unspecified | + + documented in this encounter"
--- OUTSIDE RECORDS SUMMARY | ~2020-02-24 | XMS | Encounter Summary ---
Demographics + + + | Address | [id number] [place] [address] Ln | | | [place] [address] | + + + | Home Phone | | + + + | Preferred Language | Unknown | + + + | Marital Status | | + + + | Holiness Affiliation | LINDSAY | + + + | Race | White | + + + | Ethnic Group | Not or | + + + Author + + + | Author | [facility] | + + + | Organization | [facility] | + + + | Address | Unknown | + + + | Phone | Unavailable | + + + Support + + + + + | Name | Relationship | Address | Phone | + + + + + | Jeni Shirley | ECON | UA | | | | | [place] [address] | | + + + + + Care Team Providers + +------+ + | Care Caddymaster Name | Role | Phone | + +------+ + PCP | Unavailable | + +------+ + Encounter Details +--------+ + + + + | Date | Type | Department | Care Team | Description | +--------+ + + + + | 11/11/ | Office | [facility] | Note, Family | Progress Note | | 2005 | Visit-Trans | PRACTICE | Practice Clinic [...] as of this encounter Progress Notes Interface, Supervisor Metal Cans In - 03/06/2005 12:25 AM PDT [id number] TARI CALDWELL Clinic Date: 11/11/2004 [facility] Subjective: Ms. Toth is here today for a refill of her controlled medications for chronic back pain and osteoporosis, multiple sites that are arthritic. She has been on a medication care agreement through [facility] for some time, for Vicodin 1 p.o. q.i.d. with Soma 1 p.o. t.i.d. These are written for today with 1 refill each, and we will have her seen in 2 months' time. Health Maintenance: She has a scheduled mammogram. At the next visit, we will discuss bone densitometry which she has had as well as her xxf-yqlvxcf-hyxowvqhe diabetes mellitus which when last checked in March 2004, she had a hemoglobin A1c of 6.4. Eladio Lynch M.D. [facility] / [id number] / [id number] / [id number] / [id number] Electronically signed by Eladio Lynch 11-22-2004 10:07:27 AM documented i n this encounter Plan of Treatment Not on filedocumented as of this encounter Visit Diagnoses Not on filedocumented in this encounter"
--- OUTSIDE RECORDS SUMMARY | ~2020-02-24 | XMS | Encounter Summary ---
Demographics + + + | Address | [address] [place] [address] Ln | | | [place] [address] | + + + | Home Phone | | + + + | Preferred Language | Unknown | + + + | Marital Status | | + + + | Buddhism Affiliation | LINDSAY | + + + | Race | White | + + + | Ethnic Group | Not or | + + + Author + + + | Author | [facility] | + + + | Organization | [facility] | + + + | Address | Unknown | + + + | Phone | Unavailable | + + + Support + + + + + | Name | Relationship | Address | Phone | + + + + + | Jeni Shirley | ECON | UA | | | | | [place] [address] | | + + + + + Care Team Providers + +------+ + | Care Clinique Counter Manager Name | Role | Phone | + +------+ + | Eladio Lynch MD | PCP | | + +------+ + Encounter Details +--------+ + + + + | Date | Type | Department | Care Team | Description | +--------+ + + + + | 11/05/ | Document-Sc | UNKNOWN DEPARTMENT | Unknown . | | | 2013 | anned | [address] | | | | | | [address] | | | | | | [place] | | | | | | [address] | | | +--------+ + + + [...]
--- OUTSIDE RECORDS SUMMARY | ~2020-02-24 | XMS | Encounter Summary ---
Demographics + + + | Address | [address] [place] [address] Ln | | | [place] [address] | + + + | Home Phone | | + + + | Preferred Language | Unknown | + + + | Marital Status | | + + + | Anabaptism Affiliation | LINDSAY | + + + | Race | White | + + + | Ethnic Group | Not or | + + + Author + + + | Author | [facility] | + + + | Organization | [facility] | + + + | Address | Unknown | + + + | Phone | Unavailable | + + + Support + + + + + | Name | Relationship | Address | Phone | + + + + + | Jeni Shirley | ECON | UA | | | | | [place] [address] | | + + + + + Care Team Providers + +------+ + | Care Premix Concrete Batcher Name | Role | Phone | + +------+ + | Eladio Lynch MD | PCP | | + +------+ + Encounter Details +--------+ + + + + | Date | Type | Department | Care Team | Description | +--------+ + + + + | 09/15/ | Office | [facility] | Note, Outpatient | Progress Note | | 2000 | Visit-Trans | MEDICINE | Clinic | [...] as of this encounter Progress Notes Interface, Vac Press Operator In - 06/08/2006 5:08 AM PSTCLINIC DATE: 09/15/2000 [facility] SUBJECTIVE: Martha is here for followup of her diabetes which seems to be in fair control of her sugars that are ranging up to 160 with an occasional 200. Her last fasting lipid panel on August 08, 2000, was excellent with a cholesterol of 110 and triglycerides 172. She has a hemoglobin A1c of 7.4. She has no concerns with respect to her vision or headaches. No changes in perception. She does have perceived numbness in the bottoms of both feet. OBJECTIVE: GENERAL: She is in no apparent distress. She is alert and oriented x 4. VITAL SIGNS: Stable. EXTREMITIES: Her feet are without any ulcerations. She is able to establish pinprick in 4 quadrants bilaterally with the exception of right near her ankle that was a result of an old laceration rather than diabetes. ASSESSMENT: Vth-tmmlhkh-dlyicfwvm diabetes mellitus. PLAN: We will continue reassuring her of the benefits of the good control she is providing herself. See her back in 1 month. Eladio Lynch M.D. [facility] [id number] / [id number] / [id number] / [id number] signed by Interface, Vac Press Operator In at 06/08/2006 5:08 AM PSTdocume nted in this encounter Plan of Treatment Not on filedocumented as of this encounter Visit Diagnoses Not on filedocumented in this encounter"
--- OUTSIDE RECORDS SUMMARY | ~2020-02-24 | XMS | Encounter Summary ---
Demographics + + + | Address | [address] [place] [address] Ln | | | [place] [address] | + + + | Home Phone | | + + + | Preferred Language | Unknown | + + + | Marital Status | | + + + | Alevism Affiliation | LINDSAY | + + + | Race | White | + + + | Ethnic Group | Not or | + + + Author + + + | Author | [facility] | + + + | Organization | [facility] | + + + | Address | Unknown | + + + | Phone | Unavailable | + + + Support + + + + + | Name | Relationship | Address | Phone | + + + + + | Jeni Shirley | ECON | UA | | | | | [place] [address] | | + + + + + Care Team Providers + +------+ + | Care Technical Marketing Engineer Name | Role | Phone | + +------+ + | Eladio Lynch MD | PCP | | + +------+ + Encounter Details +--------+ + + + + | Date | Type | Department | Care Team | Description | +--------+ + + + + | 08/08/ | Office | [facility] | Note, [...] as of this encounter Progress Notes Interface, Cantilever Crane Operator In - 06/10/2006 5:08 AM PSTCLINIC DATE: 08/08/2000 [facility] SUBJECTIVE: This is a followup for Martha Toth who is here with a primary medical problem of back pain. She previously was contracted to utilizing up to 4 Vicodin per day and 4 Soma per day that seem to have abated her back pain and increased her personal level of function. She has been forced to taper over the last month her Vicodin and Soma, and has noticed increase in pain throughout her back, decrease in her ambulatory status, and frustration for her inability to accomplish household tasks. We discussed possibilities of other muscle relaxants as it is likely that Soma will no longer be available to her, and also discussed the possibility of decreasing her narcotic medication to 3 per day instead of 4 per day to see how that works. She seemed accepting on both of those possibilities. Other problems include diabetes mellitus. She is currently using both Glucophage and glipizide at their oral maximums with a good hemoglobin A1c's as an outcome. Reactive airway disease: Currently using 3 inhalers; Flovent 110, Atrovent, and albuterol with good results. She currently is smoking 3 to 4 cigarettes per day which is a considerable decrease from previous numbers. REVIEW OF SYSTEMS: Positive for headaches, insomnia, fatigue, body aches, and joint pain. She does not report any dizziness, blackouts, dysuria, urgency, frequency, or bowel laxity. PHYSICAL EXAMINATION: VITAL SIGNS: Blood pressure is 140/86, pulse 88, respirations 20, and weight 160.8 pounds. GENERAL: She is not wearing makeup today. NEUROLOGIC: Cranial nerves 2 through 12 are intact. CARDIAC: Regular rate and rhythm. No murmurs, gallops, or rubs. LUNGS: Clear to auscultation. PELVIC: Bimanual: Mild left adnexal tenderness with no masses appreciated. Right side is within normal limits. Cervix is identified. Pap smear is done. EXTREMITIES: Without clubbing, cyanosis, or edema. She does have diabetic neuropathy on the left medial aspect of the plantar foot and dorsal aspect of her foot on the right. Somewhat less remarkable neuropathy but present to her ankle with a good appreciation to plantar sharp touch. Otherwise no lesions, rashes, or ulcerations are noted. We will see her back in 1 month to reassess her pain. Eladio Lynch M.D. [facility] / [id number] / [id number] / [id number] / C: 08/31/2000 leb documented in this encounter Plan of Treatment Not on filedocumented as of this encounter Visit Diagnoses Not on filedocumented in this encounter"
--- OUTSIDE RECORDS SUMMARY | ~2020-02-24 | XMS | Encounter Summary ---
Demographics + + + | Address | [address] [place] [address] Ln | | | [place] [address] | + + + | Home Phone | | + + + | Preferred Language | Unknown | + + + | Marital Status | | + + + | Confucianist Affiliation | LINDSAY | + + + | Race | White | + + + | Ethnic Group | Not or | + + + Author + + + | Author | [facility] | + + + | Organization | [facility] | + + + | Address | Unknown | + + + | Phone | Unavailable | + + + Support + + + + + | Name | Relationship | Address | Phone | + + + + + | Jeni Shirley | ECON | UA | | | | | [place] [address] | | + + + + + Care Team Providers + +------+ + | Care Regional Maintenance Manager Name | Role | Phone [...] + + | 11/20/ | Refill | [facility] | Lynch, Eladio, | Refill Request | | 2006 | | at [facility] | MD [address] | | | | | [address] | [facility] [place] | | | | | [facility] | [address] | | | | | and Healing, | [phone] | | | | | Building | | | | | | Floor [facility] [place] | | | | | | [address] | | | | | | [phone] | | | +--------+--------+ + + + [...]
--- OUTSIDE RECORDS SUMMARY | ~2020-02-24 | XMS | Encounter Summary ---
Demographics + + + | Address | [address] [place] [address] Ln | | | [place] [address] | + + + | Home Phone | | + + + | Preferred Language | Unknown | + + + | Marital Status | | + + + | Restoration Affiliation | LINDSAY | + + + [...] | | | | | [place] [address] | | + + + + + Care Team Providers + +------+ + | Care Quality Auditor Name | Role | Phone | + [...] Description | +--------+--------+ + + + | 08/04/ | Refill | [facility] | Lynch, Eladio, | Refill Request | | 2005 | | at [facility] | MD [address] | | | | | [address] | [facility] [place] | | | | | [facility] | [address] | | | | | and Healing, | [phone] | | | | | Building | | | | | | Floor [facility] [place] | | | | | | [address] | | | | | | [phone] | | | +--------+--------+ + + + [...]
--- OUTSIDE RECORDS SUMMARY | ~2020-02-24 | XMS | Encounter Summary ---
Demographics + + + | Address | [address] [place] [address] Ln | | | [place] [address] | + + + | Home Phone | | + + + | Preferred Language | Unknown | + + + | Marital Status | | + + + | Taoist Affiliation | LINDSAY | + + + | Race | White | + + + | Ethnic Group | Not or | + + + Author + + + | Author | [facility] | + + + | Organization | [facility] | + + + | Address | Unknown | + + + | Phone | Unavailable | + + + Support + + + + + | Name | Relationship | Address | Phone | + + + + + | Jeni Shirley | ECON | [place] | | | | | [place] [address] | | + + + + + Care Team Providers + +------+ + | Care Hydro Station Operator Name | Role | Phone | + +------+ + | Eladio Lynch MD | PCP | | + +------+ + Encounter Details +--------+ + + + + | Date | Type | Department | Care Team | Description | +--------+ + + + + | 03/14/ | Office | [facility] | Note, [...] as of this encounter Progress Notes Interface, Machines Technician In - 01/28/2006 3:12 AM PDTCLINIC DATE: 03/14/2003 [facility] CHIEF COMPLAINT: Swelling,(?) infection of the right foot. HISTORY OF PRESENT ILLNESS: Martha is a middle-aged diabetic woman who has peripheral vascular disease. Approximately 5 days ago, she believes she may been bitten by spider or other insect. The next day she had a very sudden onset of dramatic swelling, pain, and tenderness in her right foot. She was in [place] at that time on a trip with her children and was taken to the Emergency Department. There she was prescribed cephalexin for presumed infected bug bite. The swelling began to diminish, and she began taking the cephalexin 2 days ago as she was unable to fill the prescription prior to this. She has taken the cephalexin for a day and half and just self-discontinued it secondary to diarrhea. The swelling has diminished since the first day of symptoms; however, she continues to have an exquisitely tender localized area of swelling on the dorsum of her right foot. She is worried about infection as she cannot take the antibiotics she was prescribed. OF NOTE, SHE IS ALLERGIC TO PENICILLIN. PHYSICAL EXAMINATION VITAL SIGNS: Blood pressure 120/66, pulse 108, respiratory rate 20, and weight 160.8. GENERAL: This is a pleasant woman who looks her stated age and is in no acute distress. EXTREMITIES: Bilaterally are bluish to purplish in coloration and cool. Pedal pulses are weak but palpable. The right dorsum of the foot over the third and fourth metatarsal has a very localized approximately 4-cm diameter area of swelling. This is exquisitely tender and fluctuant. However, it is neither erythematous nor is it warm. It is cool like the rest of the foot. There is a small area of ecchymosis at the base of the toes distal to this lesion. Extension or flexion of the toes does not cause specific pain or difficulty. PROCEDURE NOTE: The area was cleaned and prepped with Betadine and a wheal of lidocaine without epinephrine was placed directly over the localized region. Then, a 20-gauge needle was inserted. An attempt was made to aspirate fluid from within the lesion. Multiple attempts were made, however, nothing could be aspirated from the region. ASSESSMENT: Diabetic woman with peripheral vascular disease and localized swelling not consistent on exam with soft tissue edema. It is unclear whether this represents infection or cyst formation. It this is a cyst, we would expect fluid aspirate on attempted aspiration. Given the diabetes and peripheral vascular disease, and despite the loss of erythema and warmth of the area, a suspicion remains high for infection and certainly risk of infection. Therefore, we will cover with a course of erythromycin (penicillin allergy, unable to tolerate cephalosporins). Followup Monday for reevaluation with Dr. Lynch or myself. MD Eladio Hahn M.D. [facility] [id number] / [id number] / [id number] / Tdocumented in this encounter Plan of Treatment Not on filedocumented as of this encounter Visit Diagnoses Not on filedocumented in this encounter"
--- OUTSIDE RECORDS SUMMARY | ~2020-02-24 | XMS | Encounter Summary ---
Demographics + + + | Address | [address] [place] [address] Ln | | | [place] [address] | + + + | Home Phone | | + + + | Preferred Language | Unknown | + + + | Marital Status | | + + + | Protestant Affiliation | LINDSAY | + + + | Race | White | + + + | Ethnic Group | Not or | + + + Author + + + | Author | [facility] | + + + | Organization | [facility] | + + + | Address | Unknown | + + + | Phone | Unavailable | + + + Support + + + + + | Name | Relationship | Address | Phone | + + + + + | Jeni Shirley | ECON | [place] | | | | | [place] [address] | | + + + + + Care Team Providers + +------+ + | Care Financial Advocate Name | Role | Phone | + +------+ + | Eladio Lynch MD | PCP | | + +------+ + Reason for Visit + + + | Reason | Comments | + + + | Follow-up visit | | + + + Encounter Details +--------+---------+ + + + | Date | Type | Department | Care Team | Description | +--------+---------+ + + + | 07/23/ | Office | [facility] Primary [facility] | Eladio Lynch, | Tobacco Abuse; | | 2006 | Visit | at [facility] | MD [address] | Depressive Disorder, | | | | [address] | [place], [place] | not Elsewhere | | | | [facility] | [address] | Classified; DM w/o | | | | and Healing, | [phone] | Complication Type | | | | Building | | II; Insomnia; | | | | Floor [place], [place] | | Unspecified Backache | | | | [address] | | | | | | [phone] | | | +--------+---------+ + + + [...] + + + | Blood Pressure | 110/58 | 07/23/2007 1:28 PM | | | | | PST | | + + + + + | Pulse | 72 | 07/23/2007 1:28 PM | | | [...] + + + + | Weight | 86.6 kg (191 lb) | 07/23/2007 1:28 PM | | | | | PST | | + + + + + | Height | 154.9 cm (5' 1") | 07/23/2007 1:28 PM | | | | | PST | | + + + + + | Body Mass Index | 36.09 | 07/23/2007 1:28 PM | | | | | PST | | + + + + + documented in this encounter Progress Notes Eladio Lynch - 07/23/2007 1:58 PM PSTFormatting of this note might be different from t gonzalez original. ID: Martha Toth is a 66 y.o. female CC: Stress HPI: Martha Toth has had hard time even getting out of bed for 6 wks, she restarted tob. , is having tremendous difficulty with , - no physical abuse. Limitted funds, forced c hoices with meds. Looking forward to 67. 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 Inhale 1 puff by inhalation route every 4-6 hours as needed, Disp: 1, Rfl: 12 Carisoprodol 350 mg Oral Tablet, take 1 tablet (350mg) by oral route 3 times per day and at bedtime, Disp: 120, Rfl: 1 Hydrocodone-Acetaminophen (VICODIN ES) 7.5-750 mg Oral Tablet, 1 po qid, Disp: 120, Rfl: 1 Beclomethasone Dipropionate (QVAR) 80 mcg/Actuation Inhalation Aerosol, inhale 3 puffs tid, Disp: 2, Rfl: 12 Diazepam (VALIUM) 5 mg Oral Tablet, prn flying, Disp: 12, Rfl: 0 Amitriptyline HCl 50 mg OR TABS, 2 po qhs, Disp: 60, Rfl: 12 ALBUTEROL SULFATE HFA 90 MCG/ACTUATION AEROSOL INHALER, inhale 1 puff by inhalation route e very 4-6 hours as needed, Disp: 17, Rfl: 4 LISINOPRIL 10 MG TAB, take 1 tablet (10mg) by oral route once daily, Disp: 30, Rfl: 12 LASIX 40 MG TAB, take 1 tablet (40mg) by oral route once daily and 1/2 qhs, Disp: 50, Rfl: 12 INSULIN 70/30 70 UNIT-30 UNIT/ML SUSP, SUB-Q INJ, inject by subcutaneous route per insulin protocol, Disp: 20, Rfl: 11 SOMA 350 MG TAB, 1 po qid, Disp: 120, Rfl: 1 ATIVAN 0.5 MG TAB, take 2 tablets (1mg) by oral route 3 times per day as needed, Disp: 30, Rfl: 0 VISTARIL 25 MG CAP, take 1 capsule (25mg) by oral route 4 times per day, Disp: 30, Rfl: 1 ZOLOFT 100 MG TAB, take 1 tablet (100mg) by oral route once daily, Disp: 30, Rfl: 12 ASPIRIN 325 MG ORAL TAB, None Entered, Disp: , Rfl: Physical Examination Blood pressure 110/58, pulse 72, height 1.549 m (5' 1"), weight 86.637 kg (191 lbs). Patient is alert and oriented times three. Mild distress Cv- rrr Resp - cta Ext - no edema Assessment: Encounter Diagnoses Code Name Primary? 305.1U Tobacco Abuse 311 Depressive Disorder, not Elsewhere Classified Plan: SERTRALINE 100 MG TAB 250.00 DM w/o Complication Type II 780.52A Insomnia 724.5 Unspecified Backache Plan: SOMA 350 MG TAB, VICODIN ES 7.5 MG-750 MG TAB Refill current medications per medication care agreement @ [facility], family medicine as above. documented in this encoun ter Plan of Treatment Not on filedocumented as of this encounter Visit Diagnoses + + | Diagnosis | + + | Tobacco abuse Tobacco use disorder | + + | Depressive disorder, not elsewhere classified | + + | Type II or unspecified type diabetes mellitus without mention of complication, not | | stated as uncontrolled | + + | Insomnia Insomnia, unspecified | + + | Backache, unspecified | + + documented in this encounter
--- OUTSIDE RECORDS SUMMARY | ~2020-02-24 | XMS | Encounter Summary ---
Demographics + + + | Address | [address] | | | [place] [address] | + + + | Home Phone | | + + + | Preferred Language | Unknown | + + + | Marital Status | | + + + | Confucianism Affiliation | 1041 | + + + | Race | Unknown | + + + | Ethnic Group | Unknown | + + + Author + + + | Author | [facility] | | | and [place] | + + + | Organization | [facility] | | | and [place] | + + + | Address | Unknown | + + + | Phone | Unavailable | + + + Support + + +---------+ + | Name | Relationship | Address | Phone | + + +---------+ + | Clyde Neil | ECON | Unknown | | + + +---------+ + | Jeni Mcgill | ECON | Unknown | | + + +---------+ + Care Team Providers + +------+ + | Care [facility] Name | Role | Phone | + +------+ + | Krista Alvarez | PCP | | | PA | | | + +------+ + Encounter Details +--------+ + + + + | Date | Type | Department | Care Team | Description | +--------+ + + + + | 08/21/ | Orders Only | [facility] [place] | Alexander Sanchez, | Lumbar radiculopathy | | 2019 | | PHYSIATRY [address] | PA-C [address] | (Primary Dx) | | | | [address] | [address] [place] | | | | | [place], [place] | [place] [address] | | | | | [address] | [phone] | | | | | [phone] | | | +--------+ + + + + Social History + + + +--------+ + | Tobacco Use | Types | Packs/Day | Years | Date | | | | | Used | | + + + +--------+ + | Current Every Day | Cigarettes | 0.5 | 60 | Started: 1927 | | Smoker | | | | | + + + +--------+ + + +---+---+---+ | Smokeless Tobacco: | | | | | Never Used | | | | + +---+---+---+ + + +---------+ + | Alcohol Use | Drinks/Week | oz/Week | Comments | + + +---------+ + | Yes | 0 Standard drinks | 0.0 | rare, 1-3/year | | | or equivalent | | | + + +---------+ + + + + | Sex Assigned at | Date Recorded | | | | + + + | Not on file | | + + + documented as of this encounter Plan of Treatment Not on filedocumented as of this encounter Results [place] ESPERANZA Lumbar Transforaminal (09/12/2018 11:48 AM PST) + + | Specimen | + + | | + + + + -+ | Narrative | Performed At | + + -+ | 09/12/2018 | [facility] | | Bilateral Transforaminal Epidural Steroid Injections Diagnosis: Lumbar | | | radiculopathy ICD-10 Code M54.16 Martha Toth presents to the | | | fluoroscopy suite for fluoroscopically-guided bilateral L4-L5 | | | transforaminal epidural steroid injections as part of conservative | | | management for chronic pain with lumbar radiculopathy and degenerative | | | disc disease. After informed consent was obtained, the patient lay in | | | the prone position on the fluoroscopy table. The areas were | | | identified under fluoroscopic guidance. The areas were prepped and | | | draped in sterile fashion. A 25-gauge, 1.5-inch needle was inserted | | | into each region and approximately 3 mL of buffered 1% lidocaine was | | | infused. Then, a 22-gauge spinal needle was inserted into the | | | posterior superior transforaminal space bilaterally and advanced into | | | the epidural space under fluoroscopic guidance. Confirmation into the | | | epidural space was obtained with infusion of approximately 1 mL of | | | Omnipaque contrast which showed epidural flow as well as nerve sheath | | | flow. Then, a combination of 2 mL of 1% lidocaine and 1.5 mL of 10 | | | mg/mL dexamethasone was infused, divided between the two sides. The | | | patient tolerated the procedure well without complications. Pre- and | | | post-procedure blood pressures were stable. The patient was given | | | verbal as well as written follow-up instructions. Prior to the start | | | of the procedure, the following were performed and/or verified, | | | including correct patient identity, correct site/side marked and | | | visible, agreement on the procedure to be done, correct patient | | | positioning and an accurate procedure consent form. Any safety | | | precautions based on clinical history and/or medication use have been | | | addressed. I personally performed the procedure above. Estimated blood | | | loss: MinimalComplications: NoneFindings: As expectedAnesthesia: | | | Local 1% Lidocaine | | |visible, agreement on the procedure to be done, correct patient | | |positioning and an accurate procedure consent form. Any safety precautions | | |based on clinical history and/or medication use have been addressed. I | | |personally performed the procedure above. | | | | | |Estimated blood loss: Minimal | | |Complications: None | | |Findings: As expected | | |Anesthesia: Local 1% Lidocaine | | | | | | | | + + -+ + +---------+ + + | Performing | Address | City/[facility] | Phone Number | | Organization | | | | + +---------+ + + | [facility] | | | | + +---------+ + + documented in this encounter Visit Diagnoses + + | Diagnosis | + + | Lumbar radiculopathy - Primary Thoracic or lumbosacral neuritis or radiculitis, | | unspecified | + + documented in this encounter"
--- OUTSIDE RECORDS SUMMARY | ~2020-02-24 | XMS | Encounter Summary ---
Demographics + + + | Address | [address] [place] [address] Ln | | | [place] [address] | + + + | Home Phone | | + + + | Preferred Language | Unknown | + + + | Marital Status | | + + + | Taoism Affiliation | LINDSAY | + + + | Race | White | + + + | Ethnic Group | Not or | + + + Author + + + | Author | [facility] | + + + | Organization | [facility] | + + + | Address | Unknown | + + + | Phone | Unavailable | + + + Support + + + + + | Name | Relationship | Address | Phone | + + + + + | Jeni Shirley | ECON | [facility] | | | | | [place] [address] | | + + + + + Care Team Providers + +------+ + | Care Solar Field Service Technician Name | Role | Phone | + [...] Description | +--------+--------+ + + + | 04/21/ | Refill | [facility] | Lynch, Eladio, | Refill Request | | 2006 | | at [facility] | MD [address] | | | | | [address] | [place], [place] | | | | | [facility] | [address] | | | | | and Healing, | [phone] | | | | | Building | | | | | | Floor [facility] [place] | | | | | | [address] | | | | | | [phone] | | | +--------+--------+ + + + Social History + +-------+ +--------+------+ | Tobacco Use | Types | Packs/Day | Years | Date | | | | | Used | | + +-------+ +--------+------+ | Former Smoker | | | 10 | | + +-------+ +--------+------+ + + [...]
--- OUTSIDE RECORDS SUMMARY | ~2020-02-24 | XMS | Encounter Summary ---
Demographics + + + | Address | [address] [place] [address] Ln | | | [place] [address] | + + + | Home Phone | | + + + | Preferred Language | Unknown | + + + | Marital Status | | + + + | Christian Affiliation | LINDSAY | + + + | Race | White | + + + | Ethnic Group | Not or | + + + Author + + + | Author | [facility] | + + + | Organization | [facility] | + + + | Address | Unknown | + + + | Phone | Unavailable | + + + Support + + + + + | Name | Relationship | Address | Phone | + + + + + | Jeni Shirley | ECON | [facility] | | | | | [place] [address] | | + + + + + Care Team Providers + +------+ + | Care Ultrasound Technologist Sonographer Name | Role | Phone | + [...] Description | +--------+--------+ + + + | 12/23/ | Refill | [place] [facility] | Lynch, Eladio, | Refill Request | | 2007 | | at [facility] | MD [address] | | | | | [address] | [place], [place] | | | | | [facility] | [address] | | | | | and Healing, | [phone] | | | | | Building | | | | | | Floor [facility] [place] | | | | | | [address] | | | | | | [phone] | | | +--------+--------+ + + + [...] + | Diagnosis | + + | Type II or unspecified type diabetes mellitus without mention of complication, not | | stated as uncontrolled | + + documented in this encounter"
--- OUTSIDE RECORDS SUMMARY | ~2020-02-24 | XMS | Clinical Summary ---
Demographics + + + | Address | [address] | | | [place] [address] | + + + | Home Phone | | + + + | Preferred Language | Unknown | + + + | Marital Status | | + + + | Episcopal Affiliation | 1041 | + + + | Race | Unknown | + + + | Ethnic Group | Unknown | + + + Author + + + | Author | [facility] | | | and [place] | + + + | Organization | [facility] | | | and [place] | [...] Team Providers + +------+ + | Care Dispatcher Maintenance Name | Role | Phone | + +------+ + | Krista Alvarez | PCP | | | PA | | | + +------+ + Allergies + + + + + + | Active Allergy | Reactions | Severity | Noted | Comments | | | | | Date | | + + + + + + | Bee Venom | | | 07/24/20 | | | | | | 18 | | + + + + + + | Lactose | Hives | | 07/24/20 | | | | | | 18 | | + + + + + + | Penicillins | Hives | | 10/01/19 | | | | | | 15 | | + + + + + + | Uncoded | Other (See Comments) | | 05/10/20 | Blood | | Nonscreenable | | | 18 | transfusions-Reactio | | Allergen | | | | n not specified in | | | | | | outside medical | | | | | | records | + + + + + + Medications + + + +---------+------+------+-------+ | Medication | Sig | Dispensed | Refills | Star | End | Statu | | | | | | t | Date | s | | | | | | Date | | | + + + +---------+------+------+-------+ | triamcinolone | Apply topically as | | 0 | | | Activ | | (KENALOG) 0.1% cream | needed. | | | | | e | + + + +---------+------+------+-------+ | | Inhale 2 puffs into | 1 | 11 | 05/1 | | Activ | | budesonide-formotero | the lungs 2 times | Inhaler | | 5/20 | | e | | l (SYMBICORT) | daily. | | | 15 | | | | 160-4.5 mcg/puff | | | | | | | | inhaler | | | | | | | + + + +---------+------+------+-------+ | furosemide (LASIX) | Take 40 mg by mouth | | 0 | 04/1 | | Activ | | 40 mg tablet | every morning. | | | 4/20 | | e | | | | | | 16 | | | + + + +---------+------+------+-------+ | fluticasone | 2 sprays by Each | | 0 | 10/0 | | Activ | | (FLONASE) 50 | Nare route Daily. | | | 3/20 | | e | | mcg/nasal spray | | | | 17 | | | + + + +---------+------+------+-------+ | | 1 tab po TID to QID | | 0 | 07/2 | | Activ | | HYDROcodone-acetamin | prn | | | 6/20 | | e | | ophen (NORCO) 10-325 | | | | 16 | | | | mg per tablet | | | | | | | + + + +---------+------+------+-------+ | metFORMIN | 1 tab PO QAM and 2 | | 0 | 04/1 | | Activ | | (GLUCOPHAGE) 500 mg | tab PO QHS | | | 4/20 | | e | | tablet | | | | 16 | | | + + + +---------+------+------+-------+ | tiZANidine | Take 4 mg by mouth | | 0 | 05/0 | | Activ | | (ZANAFLEX) 4 mg | every 8 hours as | | | 9/20 | | e | | tablet | needed. | | | 16 | | | + + + +---------+------+------+-------+ | albuterol 2.5 mg/3 | Take 2.5 mg by | | 0 | | | Activ | | mL nebulizer | nebulization every 2 | | | | | e | | solution | hours. For wheezing | | | | | | | | or SOB | | | | | | + + + +---------+------+------+-------+ | aspirin 81 MG EC | Take 81 mg by mouth | | 0 | | | Activ | | tablet | Daily. | | | | | e | + + + +---------+------+------+-------+ | FLUoxetine | Take 40 mg by mouth | | 0 | | | Activ | | (PROZAC) 40 MG | Daily. | | | | | e | | capsule | | | | | | | + + + +---------+------+------+-------+ | budesonide | Inhale 2 puffs into | | 0 | | | Activ | | (PULMICORT | the lungs 2 times | | | | | e | | FLEXHALER) 180 | daily. | | | | | | | mcg/puff inhaler | | | | | | | + + + +---------+------+------+-------+ | montelukast | Take 10 mg by mouth | | 0 | | | Activ | | (SINGULAIR) 10 mg | Daily. | | | | | e | | tablet | | | | | | | + + + +---------+------+------+-------+ | albuterol | Inhale 2 puffs into | | 0 | | | Activ | | (VENTOLIN HFA) 90 | the lungs EVERY 4 TO | | | | | e | | mcg/puff inhaler | 6 HOURS NEEDED. | | | | | | + + + +---------+------+------+-------+ | gabapentin | 1 tab PO nightly x 5 | 120 | 2 | 12/1 | | Activ | | (NEURONTIN) 300 mg | days, then increase | capsule | | 8/20 | | e | | capsule | to 1 tab PO BID x 5 | | | 18 | | | | | days. If continue | | | | | | | | to tolerate well, | | | | | | | | increase to 1 tab PO | | | | | | | | TID. | | | | | | + + + +---------+------+------+-------+ Active Problems + + + | Problem | Noted Date | + + + | Lumbar spondylosis | 01/01/2019 | + + + | Tobacco abuse | 06/12/2015 | + + + | Insomnia | 02/13/2015 | + + + | PLMD (periodic limb movement disorder) | 02/13/2015 | + + + | Iron deficiency | 02/13/2015 | + + + | History of lung cancer | 12/19/2014 | + + + + + | Overview: Right side, s/p lobectomy 1996 | + + +---------+ + | Snoring | 12/19/2014 | +---------+ + | Asthma | 05/16/2005 | +---------+ + + + | Overview: Overview: | | ICD10 | + + + +---+ | CKD (chronic kidney disease) | | + +---+ | COPD (chronic obstructive pulmonary disease) | | + +---+ + + | Overview: FEV1 1.32 67% of predicted 12/19/14 | + + + +---+ | Hayfever | | + +---+ | GERD (gastroesophageal reflux disease) | | + +---+ | Hyperlipidemia | | + +---+ | Cataract | | + +---+ | DM type 2 (diabetes mellitus, type 2) | | + +---+ | Depression | | + +---+ Immunizations + + + + | Name | Administration Dates | Next Due | + + + + | INFLUENZA, | 06/21/2014 | | | UNSPECIFIED | | | | FORMULATION | | | + + + + | PNEUMOCOCCAL, | 05/21/2014 | | | UNSPECIFIED | | | | FORMULATION | | | + + + + Family History + + +---------+ + | Medical History | Relation | Name | Comments | + + +---------+ + | Other (see comment) | Brothcathryn | Pradeep | GSW from [place] | + + +---------+ + | PTSD | | Pradeep | | + + +---------+ + | No known problems | | Robles | | + + +---------+ + | Schizophrenia | | Guy | | + + +---------+ + | No known problems | | Solomon | | + + +---------+ + | No known problems | Daughter | Jein | | | | | [place] | | + + +---------+ + | No known problems | Daughter | | | + + +---------+ + | Lung cancer | Father | | | + + +---------+ + | Cancer | Maternal | | | | | Aunt | | | + + +---------+ + | Brain cancer | Maternal | | | | | Grandmoth | | | | | er | | | + + +---------+ + | Breast cancer | Maternal | | | | | Grandmoth | | | | | er | | | + + +---------+ + | Cancer | Maternal | | Bone | | | Grandmoth | | | | | er | | | + + +---------+ + | Arthritis | Mother | | | + + +---------+ + | Pacemaker | Mother | | Cardiac problems | + + +---------+ + | Stroke | Mother | | | + + +---------+ + | Cervical cancer | Other | | | + + +---------+ + | No known problems | Sister | Honey | | + + +---------+ + | No known problems | Son | Clyde | | | | | Gornick | | + + +---------+ + + +---------+ + + | Relation | Name | Status | Comments | + +---------+ + + | | Pradeep | Alive | | + +---------+ + + | | Robles Herman Alive | | + +---------+ + + | | Guy | Alive | | + +---------+ + + | Brother | Solomon | Alive | | + +---------+ + + | Brother | | | suicide | | | | (Age | | | | | 20s) | | + +---------+ + + | Daughter | Jeni | Alive | | | | [place] | | | + +---------+ + + | Daughter | | Alive | | + +---------+ + + | Father | | | bowel rupture from surgical complication | | | | (Age | | | | | 75) | | + +---------+ + + | Maternal Aunt | | | | + +---------+ + + | Maternal Grandfather | | | Cancer | + +---------+ + + | Maternal Grandmother | | | Cancer | + +---------+ + + | Mother | | Alive | | + +---------+ + + | Other | | | | + +---------+ + + | | Honey | Alive | | + +---------+ + + | Sister | | | | | | | (Age | | | | | infancy) | | + +---------+ + + | Renato | Clyde | Alive | | | | [place] | | | + +---------+ + + Social History + + + [...] + + +---------+ + + + + + | Alcohol Habits | Answer | Date Recorded | + + + + | How often do you have a drink containing | Monthly or less | 01/01/2019 | | alcohol? | | | + + + + | How many drinks containing alcohol do you | 1 or 2 | 01/01/2019 | | have on a typical day when you are | | | | drinking? | | | + + + + | How often do you have six or more drinks on | Never | 01/01/2019 | | one occasion? | | | + + + + + + + | Sex Assigned at | Date Recorded | | | | + + + | Not on file | | + + + Last Filed Vital Signs + + + + + | Vital Sign | Reading | Time Taken | Comments | + + + + + | Blood Pressure | 144/81 | 01/01/2019 3:35 PM | | | | | PDT | | + + + + + | Pulse | 71 | 01/01/2019 3:35 PM | | | | | PDT | | + + + + + | Temperature | 36.8 C (98.3 F) | 06/12/2015 12:51 PM | | | | | PST | | + + + + + | Respiratory Rate | 20 | 06/12/2015 12:51 PM | | | | | PST | | + + + + + | Oxygen Saturation | 96% | 06/12/2015 12:51 PM | | | | | PST | | + + + + + | Inhaled Oxygen | - | - | | | Concentration | | | | + + + + + | Weight | 59 kg (130 lb) | 01/01/2019 3:35 PM | | | | | PDT | | + + + + + | Height | 154.9 cm (5' 1") | 01/01/2019 3:35 PM | | | | | PDT | | + + + + + | Body Mass Index | 24.56 | 01/01/2019 3:35 PM | | | | | PDT | | + + + + + Plan of Treatment + + + + + | Health Maintenance | Due Date | Last | Comments | | | | Done | | + + + + + | Diabetic Eye Exam | | | | | | 1 | | | + + + + + | Diabetic Foot Exam | | | | | | 1 | | | + + + + + | Hemoglobin A1c | | | | | Screening | 1 | | | + + + + + | Vaccine: | | | | | Dtap/Tdap/Td (1 - | 2 | | | | Tdap) | | | | + + + + + | Breast Cancer | | | | | Screening | 8 | | | + + + + + | Lung Cancer | | | | | Screening | 8 | | | + + + + + | Vaccine: | | 05/21/20 | | | Pneumococcal 65+ (1 | 8 | 14 | | | of 1 - PPSV23) | | | | + + + + + | Vaccine: Zoster (1 | | | | | of 2) | 6 | | | + + + + + | Adult Annual | | | | | Wellness Visit | 8 | | | + + + + + | Microalbumin | | | | | Screening | 8 | | | + + + + + | Statin Therapy | | | | | (optimal intensity) | 8 | | | + + + + + | Vaccine: Influenza | | 05/02/20 | | | (#1) | 0 | 18, | | | | | 03/27/20 | | | | | 17, | | | | | 03/25/20 | | | | | 16, | | | | | Addition | | | | | al | | | | | history | | | | | exists | | + + + + + Results Not on filefrom Last 3 Months Insurance + +--------+ +--------+ +---------+--------+ | Payer | Benefi | Subscriber | Effect | Phone | Address | Type | | | t Plan | ID | emil | | | | | | / | | Dates | | | | | | Group | | | | | | + +--------+ +--------+ +---------+--------+ | MEDICARE | MEDICA | [id number] | 08/07/19 | [phone] | | Medica | | | RE | | 08-Pre | 5 | | re | | | PART A | | sent | | | | | | AND B | | | | | | + +--------+ +--------+ +---------+--------+ | MEDICARE | MEDICA | [id number] | 08/07/19 | [phone] | | Medica | | | RE | | 08-Pre | 5 | | re | | | PART A | | sent | | | | | | AND B | | | | | | + +--------+ +--------+ +---------+--------+ | [employer] | MODA | [id number] | 08/07/19 | [phone] | | Medica | | MEDICAID O | HEALTH | | 19-Pre | 1 | | id | | | MDCD | | sent | | | | | | [place] | | | | | | + +--------+ +--------+ +---------+--------+ + +--------+ +--------+ + + | Guarantor Name | Accoun | Relation to | Date | Phone | Billing Address | | | t Type | Patient | of | | | | | | | | | | + +--------+ +--------+ + + | Martha Toth | Person | Self [birth year] | [phone] | | | al/Fam | | 1941 | [phone] | [place] | | | jennifer | | | 0 (Home) | [address] | + +--------+ +--------+ + + | Martha Toth | Person | Self | [birth year] | [address] | | | al/Fam | | 1941 | [phone] | [place] | | | jennifer | | | 0 (Home) | [address] | + +--------+ +--------+ + + Advance Directives + + + + + | Type | Date Recorded | Patient | Explanation | | | | Career Development Counselor | | + + + + + | Power of | | | | | Torch Solderer | | | | + + + + + | Advance | 12/19/2014 12:46 | | | | Directive | PM | | | + + + + +
--- OUTSIDE RECORDS SUMMARY | ~2020-02-24 | XMS | Encounter Summary ---
Demographics + + + | Address | [address] [place] [address] Ln | | | [place] [address] | + + + | Home Phone | | + + + | Preferred Language | Unknown | + + + | Marital Status | | + + + | Islam Affiliation | LINDSAY | + + + | Race | White | + + + | Ethnic Group | Not or | + + + Author + + + | Organization | Unknown | + + + | Address | Unknown | + + + | Phone | Unavailable | + + + Support + + + + + | Name | Relationship | Address | Phone | + + + + + | Jeni Shirley | ECON | [facility] | | | | | [place] [address] | | + + + + + Care Team Providers + +------+ + | Care Customer Service Correspondence Clerk Name | Role | Phone | + +------+ + | Eladio Lynch MD | PCP | | + +------+ + Encounter Details +--------+ + + + + | Date | Type | Department | Care Team | Description | +--------+ + + + + | 08/22/ | Office | | Echo, Dobutamine | Progress Note | | 2001 | Visit-Trans | | | | | | cribed | | [...] as of this encounter Progress Notes Interface, Volunteer Patient Representative In - 04/25/2006 3:06 AM PDTReferring Provider: Olivia MOSES Test Date: 08/22/2001 Clinic: Mail Code: Study #: [id number] Tape #: Frame #: [id number] Disc#: Cardiac Medications: None Glaucoma Hx: None Indication for exam: Chest pain DOBUTAMINE ECHO STRESS TEST DATA Time: 0 05:00 10:00 13:10 Pre 5 ug/kg 10 ug/kg 20 ug/kg 30 ug/kg 40 ug/kg Post HR: 96 107 120 130 BP: 124/67 128/67 132/67 136/51 130/67 HR achieved: 146 Percent max pred HR: 90 % Chest Discomfort: None Comments: ELECTROCARDIOGRAPHY Baseline: Normal ECG Dobutamine: No significant ST-T deviation Recovery: Return to baseline ECG ECHOCARDIOGRAPHY Wall Motion Summary No wall motion abnormalities noted in anterior, inferior, posterior and septal segments. However, lateral wall not visualized well, thus cannot exclude possible segmental abnormality. DOBUTAMINE ECHO STRESS TEST INTERPRETATION Low probability for ischemia, however, unable to visualize lateral wall. Supplemental echo results Chamber sizes: Valve appearance: LV function at rest: LV function at stress: RV function: RV Systolic pressure (if available): Other: REDD ARGUETA MD BARREL RAISER/Fellow/Resident M.D. * I have personally supervised the * I have personally interpreted above test. the results of this test. GP/ds1 A cc: documente d in this encounter Plan of Treatment Not on filedocumented as of this encounter Visit Diagnoses Not on filedocumented in this encounter"
--- OUTSIDE RECORDS SUMMARY | ~2020-02-24 | XMS | Encounter Summary ---
Demographics + + + | Address | [id number] [place] [address] Ln | | | [place] [address] | + + + | Home Phone | | + + + | Preferred Language | Unknown | + + + | Marital Status | | + + + | Yarsani Affiliation | LINDSAY | + + + | Race | White | + + + | Ethnic Group | Not or | + + + Author + + + | Author | [facility] | + + + | Organization | [facility] | + + + | Address | Unknown | + + + | Phone | Unavailable | + + + Support + + + + + | Name | Relationship | Address | Phone | + + + + + | Jeni Shirley | ECON | [facility] | | | | | [place] [address] | | + + + + + Care Team Providers + +------+ + | Care Repairer Controller Tester Name | Role | Phone | + +------+ + | Eladio Lynch MD | PCP | | + +------+ + Encounter Details +--------+ + + + + | Date | Type | Department | Care Team | Description | +--------+ + + + + | 05/29/ | Office | [facility] | Note, [...] as of this encounter Progress Notes Interface, Greenhouse Staff In - 08/16/2006 3:07 AM PSTCLINIC DATE: 05/29/1998 HEMATOLOGY ONCOLOGY CLINIC SUBJECTIVE: The patient was seen and examined in the hematology oncology clinic for evaluation and management of non-small cell lung cancer. Ms. Toth is a 57-year-old white female whose daughter works in the radiation oncology department here at [facility]. The patient was in her usual state of health until April 1998, when she developed nausea and vomiting. She states that this came on suddenly and lasted for approximately three days until she became dehydrated and was admitted to the hospital for IV hydration. Evaluation during this hospitalization revealed a lung mass, which was followed with a CT scan, which is said to have revealed the presence of contralateral paratracheal lymphadenopathy. Our evaluation today is hampered by the absence of any CT scans, chest x-ray, bone scan or pathology slides for review, although some reports are available. Ms. Toth reports one episode of hemoptysis two to three months ago and a little bit of hemoptysis following bronchoscopy which was performed at [facility] in [place], [place]. Bronchoscopy is said to have shown no endobronchial lesions and several blind biopsies were obtained, which were negative for any neoplastic cells. Ms. 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 These slides are not currently available for review. The patient presently denies any dyspnea or cough. She quit smoking four days ago after a long history of smoking. She does complain of some midsternal chest pain which is present at various times during the day, does not appear to be related to activity, and is perhaps associated with some heartburn and difficulty swallowing which have been progressive over the past three months. During the course of the clinic visit, she remarked upon a sharp pain in the right elbow which lasted for 20 to 30 minutes. 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 The patient denies fevers, chills or sweats. She states that she has lost about ten pounds during the course of her recent illness and has gained some of it back. Her usual weight is in the mid 150 range. She states that she is able to perform light housework, office work, shopping, etc., but does not perform strenuous activities, giving her a Karnofsky performance status of about 80. She states that she has some pain which requires narcotic pain medication, but which is adequately controlled. MEDICATIONS: Her current medications include the followin. Potassium one time per day. 2. Elavil 100 mg q.h.s. 3. Ultram 50 mg two tablets q.4h. 4. Lasix 40 mg daily. 5. Glucophage 500 mg t.i.d. 6. Glipizide 5 mg b.i.d. 7. ( ) (s/l "lipitan"-Lipitor??) 20 mg daily. 8. Claritin 10 mg daily. 9. Carisoprodol 350 mg t.i.d. 10. Hydrocodone one to two tablets q.4h. 11. Vancenase inhaler. MEDICATION ALLERGIES: PENICILLIN PRODUCES HIVES. THE PATIENT ALSO HAS AN ALLERGY TO MILK AND BEES, AND HAS HAD REACTION TO BLOOD TRANSFUSION IN THE PAST. PAST SURGICAL HISTORY: She had a lower lumbar surgery in 1969 and in 1983, and surgery on a leg in 1987. PAST MEDICAL HISTORY: She was recently hospitalized for hydration secondary to nausea and vomiting but does not have any other hospitalizations. She has had no history of radiation. She has had three pregnancies and three children. She stopped having menstrual periods at the age of 47 and has had no history of an abnormal Pap (Papanicolaou) smear. She has had a blood transfusion in 1983 with a transfusion reaction. Childhood illnesses are remarkable for measles and chickenpox. 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 She has a history of -associated anemia. She has trouble sleeping secondary to back pain. FAMILY HISTORY: The patient's father over the age of 80. He had a history of cancer, staph infection and an aneurysm. The patient's mother is alive and has had mild strokes and rheumatoid arthritis. The patient has four brothers and one sister, all of whom are well. She has three children, one with ADD (attention deficit disorder) and borderline asthma; one with hypoglycemia and stomach problems; and one with drug and alcohol addiction, asthma, and a history of smoking. The patient has a family history of cancer in her grandmother, who had metastatic cancer, and she also has a family history of diabetes. SOCIAL HISTORY: She is currently living with her and is interested in discussing social issues with Honey Gonsales LCSW. The patient is retired, previously worked in a [employer], and has not been exposed to chemicals. She quit smoking four days ago and was smoking one and a half packs per day for the last 40 years, for a 92-[id number]-icyh smoking history. She drinks alcohol occasionally. She has not had significant recreational drug exposure and has had no recent travel outside the [place]. REVIEW OF SYSTEMS: A comprehensive review of systems was obtained and is significant for some headache. Of note, the patient has had a CT scan of the head which is reportedly negative for metastatic disease, but is not available for review. She has some nosebleeds, swollen lymph nodes in the center of her chest, some recent skin rash. She has also had some diarrhea with occasional blood in the stool. She continues to have back pain and frequent urination related to diabetes. She complains of numbness and tingling in the feet and loss of strength in the hands. LABORATORY AND DIAGNOSTIC DATA: Medical records which are available for review show a copy of a pulmonary function test dated April 29, 1998 showing an FEV1 of 1.159, which is 69% of predicted; FEF 25/75 is 1.1, which is 44% of predicted, showing obstructive pulmonary disease. A report of a biopsy of the right lower lobe is reported as squamous cell carcinoma, moderately to poorly differentiated. A report of CT of the head dated May 20, 1998 is read as a normal non-contrast CT. A report of a bone scan is read as no evidence of bony metastasis. A report of a CT scan of the chest is not included in the patient's medical records, but the film is referred to in a pulmonary note, stating a right lower lobe mass with contralateral paratracheal lymphadenopathy. OBJECTIVE: Vital signs: On physical examination today, the patient's weight is 148 pounds. Blood pressure is 112/70, pulse 100, temperature 36.5, height 5'1- ". General: The patient in general is a well-developed, well-nourished, white female who is in no acute distress. Skin: The skin is without any significant lesions. HEENT: Unremarkable. The pupils are equal, round and reactive to light. Extraocular motions are intact. The fundi show sharp disks. The oropharynx is benign in appearance. The patient is wearing upper and lower dentures. Neck: Supple without palpable lymphadenopathy. There is no thyromegaly. The carotids are 2+ without bruits. Lungs: The lungs are clear to auscultation and percussion with the exception of some decreased breath sounds in the right posterior lung field. Back: The spine is remarkable for an area of point tenderness in the upper thoracic spine, perhaps around T4 or 5. This is a very specific area of point tenderness which is palpable only over the vertebral body. Breasts: Symmetric. Heart: Regular with no murmurs, rubs or gallops. Abdomen: Soft and nontender with normoactive bowel sounds. There is no hepatosplenomegaly or mass. Extremities: Good pedal pulses. Warm without cyanosis or edema. There is no evidence of clubbing. Neurologic: Examination is nonfocal. ASSESSMENT: Non-small cell lung cancer, by report. This lesion would appear to be at least a stage IIIB lesion if the description of the right-sided with left-sided paratracheal adenopathy is correct. Biopsy of the left-sided paratracheal nodes would be critical if there is no other evidence of metastatic disease, unless the adenopathy is so significant as to make the diagnosis not in question. The films are not currently available, but the patient's daughter has suggested that she drive up to [place], [place] and obtain the x-rays, bone scan, laboratory reports and the glass slides of the biopsy which would be brought back down here on Monday for our review. I am concerned about the tenderness in the thoracic spine, as I feel that this may very well indicate an area of bony metastasis. The bone scan was reportedly read as normal, but may not be the most sensitive test for bony metastasis. Physical examination findings are highly suspicious. If the bone scan does not reveal a lesion in this area, then I would suggest a limited MRI of the thoracic spine to evaluate the possibility of bony metastasis. I have had a general discussion with Ms. Toth and her family about the diagnosis and prognosis of non-small lung cancer and possible therapies. We have deferred final discussion and consideration of therapy until the availability of the x-rays, pathology slides and nuclear medicine studies. I have asked Ms. Toth to go to the laboratory today for a CBC, a PT, PTT, and chemistry panel, which will help in her metastatic evaluation. Coagulants will be necessary should she require a biopsy of the paratracheal lymph nodes. I have stated that after review of CT, we will see if the nodes must be biopsied and if biopsy may be accessible by transesophageal ( ) (s/l "US" or "EOS") versus open surgical procedure by [place] resection of the paratracheal nodes. Ms. Toth and her family have had an opportunity to ask questions. Their questions have been answered and they understand the assessment and plan. RECOMMENDATION: Return to [place], [place] to obtain chest x-ray, CT, bone scan, laboratory studies, pathology slides and tissue block. These will be brought to [facility] for review in the early part of next week. A follow-up appointment with me in the hematology oncology clinic will be scheduled for Monday. If the scans suggest other workup necessary, we will schedule those tests during next week and hope to have them finished by Monday when Ms. Toth comes for her follow-up visit. The goal is to begin institution of treatment of some kind within the next week or two. Xuan Taylor M.D. Director Strategy, Medicine HR/roxief cc: Eladio Lynch M.D. Media Sales Consultant, Family Medicine documented in this encounter Plan of Treatment Not on filedocumented as of this encounter Visit Diagnoses Not on filedocumented in this encounter
--- OUTSIDE RECORDS SUMMARY | ~2020-02-24 | XMS | Encounter Summary ---
Demographics + + + | Address | [address] [place] [address] Ln | | | [place] [address] | + + + | Home Phone | | + + + | Preferred Language | Unknown | + + + | Marital Status | | + + + | Sikh Affiliation | LINDSAY | + + + | Race | White | + + + | Ethnic Group | Not or | + + + Author + + + | Author | [facility] | + + + | Organization | [facility] | + + + | Address | Unknown | + + + | Phone | Unavailable | + + + Support + + + + + | Name | Relationship | Address | Phone | + + + + + | Jeni Shirley | ECON | [facility] | | | | | [place] [address] | | + + + + + Care Team Providers + +------+ + | Care Employer Relations Representative Name | Role | Phone | + [...] as of this encounter Progress Notes Interface, Cleaner And Presser In - 06/10/2006 5:08 AM PSTCLINIC DATE: 08/08/2000 [facility] SUBJECTIVE: This is a followup for [...] her pain. Eladio Lynch M.D. Syed / [id number] / [id number] / [id number] / C: 08/31/2000 leb documented in this encounter Plan of Treatment Not on filedocumented as of this encounter Visit Diagnoses Not on filedocumented in this encounter"
--- OUTSIDE RECORDS SUMMARY | ~2020-02-24 | XMS | Encounter Summary ---
Demographics + + + | Address | [address] | | | [place] [address] | + + + | Home Phone | | + + + | Preferred Language | Unknown | + + + | Marital Status | | + + + | Sikhism Affiliation | [id number] | + + + | Race | Unknown | + + + | Ethnic Group | Unknown | + + + Author + + + | Author | [facility] | | | and [place] | + + + | Organization | [facility] | | | and [place] [...] Team Providers + +------+ + | Care Examining Chair Assembler Name | Role | Phone | + +------+ + | Krista Alvarez | PCP | | | PA | | | + +------+ + Reason for Visit Service/Procedure (Routine) +--------+--------+ + + + + | Status | Reason | Specialty | Diagnoses / | Referred By | Referred To | | | | | Procedures | Contact | Contact | +--------+--------+ + + + + | Closed | | Radiology | Diagnoses | | [facility] | | | | | Lumbar | [place], | [address] | | | | | radiculopath | David Chen MD | [place], | | | | | y | [address] | [place] | | | | | Procedures | [address] [place] | [address] | | | | | [place] INJECT | [place], [place] | Phone: | | | | | ANES/STEROID | [address] | [phone] | | | | | FORAMEN | Phone: | Fax: | | | | | LUMBAR/SACRA | [phone] | [phone] | | | | | [address] IMG | Fax: | | | | | | GUIDE ,1 | [phone] | | | | | | LEVEL [place] | | | | | | | TRIAMCINOLON | | | | | | | E ACET INJ | | | | | | | NOS, 10 MG | | | | | | | bilateral | | | | | | | L5/S1 TFESI | | | +--------+--------+ + + + + Encounter Details +--------+ + + + + | Date | Type | Department | Care Team | Description | +--------+ + + + + | 09/12/ | Hospital | [facility] | Alexander Sanchez, | Lumbar radiculopathy | | 2019 | Encounter | MED CTR XRAY [address] | PA-C [address] | | | | | [place] | [address] [place] | | | | | [place] [address] | [place] [address] | | | | | [phone] | [phone] | | | | | | | | | | | | [place] | | | | | | [place] | | +--------+ + + + + [...] this encounter Last Filed Vital Signs + +---------+ + + | Vital Sign | Reading | Time Taken | Comments | + +---------+ + + | Blood Pressure | 151/63 | 09/12/2018 11:56 AM | | | | | PST | | + +---------+ + + | Pulse | 83 | 09/12/2018 11:56 AM | | | | | PST | | + +---------+ + + | Temperature | - | - | | + +---------+ + + | Respiratory Rate | - | - | | + +---------+ + + | Oxygen Saturation | - | - | | + +---------+ + + | Inhaled Oxygen | - | - | | | Concentration | | | | + +---------+ + + | Weight | - | - | | + +---------+ + + | Height | - | - | | + +---------+ + + | Body Mass Index | - | - | | + +---------+ + + documented in this encounter Medications at Time of Discharge + + + +---------+ + + | Medication | Sig | Dispensed | Refills | Start | End Date | | | | | | Date | | + + + +---------+ + + | albuterol | Inhale 2 puffs into | | 0 | | | | (VENTOLIN HFA) 90 | the lungs EVERY 4 TO | | | | | | mcg/puff inhaler | 6 HOURS NEEDED. | | | | | + + + +---------+ + + | albuterol 2.5 mg/3 | Take 2.5 mg by | | 0 | | | | mL nebulizer | nebulization every 2 | | | | | | solution | hours. For wheezing | | | | | | | or SOB | | | | | + + + +---------+ + + | aspirin 81 MG EC | Take 81 mg by mouth | | 0 | | | | tablet | Daily. | | | | | + + + +---------+ + + | budesonide | Inhale 2 puffs into | | 0 | | | | (PULMICORT | the lungs 2 times | | | | | | FLEXHALER) 180 | daily. | | | | | | mcg/puff inhaler | | | | | | + + + +---------+ + + | | Inhale 2 puffs into | 1 | 11 | 12/20/19 | | | budesonide-formotero | the lungs 2 times | Inhaler | | 15 | | | l (SYMBICORT) | daily. | | | | | | 160-4.5 mcg/puff | | | | | | | inhaler | | | | | | + + + +---------+ + + | FLUoxetine | Take 40 mg by mouth | | 0 | | | | (PROZAC) 40 MG | Daily. | | | | | | capsule | | | | | | + + + +---------+ + + | fluticasone | 2 sprays by Each | | 0 | 05/09/20 | | | (FLONASE) 50 | Nare route Daily. | | | 17 | | | mcg/nasal spray | | | | | | + + + +---------+ + + | furosemide (LASIX) | Take 40 mg by mouth | | 0 | 11/19/19 | | | 40 mg tablet | every morning. | | | 16 | | + + + +---------+ + + | gabapentin | 1 tab PO nightly x 5 | 120 | 2 | 07/24/20 | | | (NEURONTIN) 300 mg | days, then increase | capsule | | 18 | | | capsule | to 1 tab PO BID x 5 | | | | | | | days. If continue | | | | | | | to tolerate well, | | | | | | | increase to 1 tab PO | | | | | | | TID. | | | | | + + + +---------+ + + | | 1 tab po TID to QID | | 0 | 03/01/20 | | | HYDROcodone-acetamin | prn | | | 16 | | | ophen (NORCO) 10-325 | | | | | | | mg per tablet | | | | | | + + + +---------+ + + | metFORMIN | 1 tab PO QAM and 2 | | 0 | 11/19/19 | | | (GLUCOPHAGE) 500 mg | tab PO QHS | | | 16 | | | tablet | | | | | | + + + +---------+ + + | montelukast | Take 10 mg by mouth | | 0 | | | | (SINGULAIR) 10 mg | Daily. | | | | | | tablet | | | | | | + + + +---------+ + + | tiZANidine | Take 4 mg by mouth | | 0 | 12/14/19 | | | (ZANAFLEX) 4 mg | every 8 hours as | | | 16 | | | tablet | needed. | | | | | + + + +---------+ + + | triamcinolone | Apply topically as | | 0 | | | | (KENALOG) 0.1% cream | needed. | | | | | + + + +---------+ + + documented as of this encounter Plan of Treatment Not on filedocumented as of this encounter Procedures + +--------+ + + + | Procedure Name | Priori | Date/Time | Associated Diagnosis | Comments | | | ty | | | | + +--------+ + + + | FL EPIDURAL STEROID | Routin | 09/12/2018 | Lumbar | Results for this | | INJECTION LUMBAR | e | 11:48 AM | radiculopathy | procedure are in the | | TRANSFORAMINAL | | PST | | results section. | + +--------+ + + + documented in this encounter Results FL ESPERANZA Lumbar Transforaminal (09/12/2018 11:48 AM PST) + + | Specimen | + + | | + + + + -+ | Narrative | Performed At | + + -+ | 09/12/2018 | [facility] | | Bilateral Transforaminal Epidural Steroid Injections Diagnosis: Lumbar | | | radiculopathy ICD-10 Code M54.16 Martha Christieraji Toth presents to the | | | [...] Diagnosis | + + | Lumbar radiculopathy Thoracic or lumbosacral neuritis or radiculitis, unspecified | + + documented in this encounter Administered Medications + +--------+ +-------+------+------+ | Medication Order | MAR | Action | Dose | Rate | Site | | | Action | Date | | | | + +--------+ +-------+------+------+ | dexamethasone (PF) 10 mg/mL | Given | 09/12/19 | 15 mg | | | | injection 15 mg 15 mg, Other, | | 19 11:45 | | | | | ONCE, Mon09/12/18 at 1200, For 1 | | AM PST | | | | | dose, When ordered IV push: | | | | | | | Dilute to 10-20 mL with NS and | | | | | | | give slowly over 1-2 minutes., | | | | | | + +--------+ +-------+------+------+ +---+---+ | | | +---+---+ + +-------+ +-------+---+---+ | iohexol (OMNIPAQUE 300) 300 | Given | 09/12/19 | 4 mLs | | | | mg/mL injection 4 mL 4 mL, | | 19 11:40 | | | | | Other, ONCE, Mon09/12/18 at 1145, | | AM PST | | | | | For 1 dose | | | | | | + +-------+ +-------+---+---+ +---+---+ | | | +---+---+ + +-------+ +-------+---+---+ | lidocaine (PF) 1% injection 2 | Given | 09/12/19 | 2 mLs | | | | mL 2 mL, Other, ONCE, 09/12/18 | | 19 11:45 | | | | | at 1145, For 1 dose, EPIDURAL, | | AM PST | | | | + +-------+ +-------+---+---+ +---+---+ | | | +---+---+ + +-------+ +-------+---+ + | lidocaine buffered 0.9% | Given | 09/12/19 | 6 mLs | | Other | | injection 6 mL 6 mL, | | 19 11:35 | | | (Comment | | Intradermal, ONCE, 09/12/18 at | | AM PST | | | ) | | 1145, For 1 dose | | | | | | + +-------+ +-------+---+ + +---+---+ | | | +---+---+ documented in this encounter"
--- OUTSIDE RECORDS SUMMARY | ~2020-02-24 | XMS | Encounter Summary ---
Demographics + + + | Address | [address] [place] [address] Ln | | | [place] [address] | + + + | Home Phone | | + + + | Preferred Language | Unknown | + + + | Marital Status | | + + + | Jehovah'S Witness Affiliation | LINDSAY | + + + | Race | White | + + + | Ethnic Group | Not or | + + + Author + + + | Author | [facility] | + + + | Organization | [facility] | + + + | Address | Unknown | + + + | Phone | Unavailable | + + + Support + + + + + | Name | Relationship | Address | Phone | + + + + + | Jeni Shirley | ECON | [employer] | | | | | [place] [address] | | + + + + + Care Team Providers + +------+ + | Care Shorthand Teacher Name | Role | Phone | + +------+ + | Eladio Lynch MD | PCP | | + +------+ + Reason for Visit + + + | Reason | Comments | + + + | Mammography | | + + + Encounter Details +--------+ + + + + | Date | Type | Department | Care Team | Description | +--------+ + + + + | 03/13/ | Patient | [facility] | Eladio Lynch, | Mammography | | 2013 | Outreach | at [facility] | MD [address] | | | | | [address] | [place], [place] | | | | | [facility] | [address] | | | | | and [place], | [phone] | | | | | [facility] | | | | | | Floor [place], [place] | | | | | | [address] | | | | | | [phone] | | | +--------+ + + + [...]
--- OUTSIDE RECORDS SUMMARY | ~2020-02-24 | XMS | Encounter Summary ---
Demographics + + + | Address | [id number] [place] [address] Ln | | | [place] [address] | + + + | Home Phone | | + + + | Preferred Language | Unknown | + + + | Marital Status | | + + + | Baptism Affiliation | LINDSAY | + + + [...] | | | | | [place] [address] | | + + + + + Care Team Providers + +------+ + | Care Dialysis Nurse Name | Role | Phone | + +------+ + | Eladio Lynch MD | PCP | | + +------+ + Encounter Details +--------+ + + + + | Date | Type | Department | Care Team | Description | +--------+ + + + + | 11/15/ | Office | [facility] | Note, [...] as of this encounter Progress Notes Interface, Head Counselor In - 02/24/2006 3:01 AM PDTCLINIC DATE: 11/15/2002 [facility] SUBJECTIVE: Ms. Toth is here for general followup. Her problem lists as follows: 1. Diabetes mellitus type 2. 2. Chronic back pain. 3. Reactive airways disease. 4. Hemorrhoids. 5. History of lung malignancy with partial right lobectomy in 1997. 6. Successful tobacco cessation in 2000. ALLERGIES: ANTI-INFLAMMATORIES, HAS AN INTOLERANCE. CURRENT MEDICATIONS 1. Avandia 4 mg b.i.d. 2. Aspirin enteric-coated 325 q.d. 3. Claritin 10 mg daily p.r.n. 4. Zoloft 100 mg daily. 5. Zantac 150 mg b.i.d. 6. Amitriptyline 100 mg q.h.s. 7. Flovent. 8. Atrovent. 9. Albuterol. 10. Metformin 850 t.i.d. 11. Glipizide 20 mg b.i.d. 12. Hydrocortisone on a fair agreement for not greater than 4 tablets daily. 13. Soma 1 p.o. t.i.d. for cramping. OBJECTIVE GENERAL: She is in no apparent distress. She is alert and oriented x 4. VITAL SIGNS: Her blood pressure is 164/74, pulse is 92, respirations are 24, and weight is 163.4 pounds. EXTREMITIES: Her feet are in good repair with no open ulcerations and gross sensation is intact. ASSESSMENT: Iwe-qisnyzk-saboqloml diabetes mellitus. PLAN 1. Refill medications. 2. Reactive airways disease. I encouraged her to be attentive toward spring allergy season. 3. Chronic pain, refilled medications with 1 refill. We will have her follow up in 2 months. I encouraged her to have her diabetes labs drawn, and she did agree as for a urine which was normal for a spot microalbumin. Eladio Lynch M.D. Syed / [id number] / [id number] / [id number] / [id number] Tdocumented in this encounter Plan of Treatment Not on filedocumented as of this encounter Visit Diagnoses Not on filedocumented in this encounter"
--- OUTSIDE RECORDS SUMMARY | ~2020-02-24 | XMS | Encounter Summary ---
Demographics + + + | Address | [id number] [place] [address] Ln | | | [place] [address] | + + + | Home Phone | | + + + | Preferred Language | Unknown | + + + | Marital Status | | + + + | Jain Affiliation | LINDSAY | + + + | Race | White | + + + | Ethnic Group | Not or | + + + Author + + + | Author | [facility] | + + + | Organization | [facility] | + + + | Address | Unknown | + + + | Phone | Unavailable | + + + Support + + + + + | Name | Relationship | Address | Phone | + + + + + | Jeni Shirley | ECON | [facility] | | | | | [place] [address] | | + + + + + Care Team Providers + +------+ + | Care Menhaden Fishing Crew Member Name | Role | Phone | + +------+ + | Unknown | PCP | Unavailable | + +------+ + Encounter Details +--------+ + + + + | Date | Type | Department | Care Team | Description | +--------+ + + + + | 05/29/ | Results | Registration [id number] | | | | 1997 | Only | [address] | | | | | | [address] Mailcode: [id number] | | | | | | [place], [place] | | | | | | [address] | | | | | | [phone] | | | +--------+ + + + [...] | CBC TESTS 2 | Routin | 07/07/1998 | | Results for this | | | e | 9:45 AM | | procedure are in the | | | | PST | | results section. | + +--------+ + + + | CBC TESTS 2 | Routin | 07/07/1998 | | Results for this | | | e | 3:07 AM | | procedure are in the | | | | PST | | results section. | + +--------+ + + + | COAGULATION TESTS 2 | Routin | 06/30/1998 | | Results for this | | | e | 6:13 PM | | procedure are in the | | | | PST | | results section. | + +--------+ + + + | TRANSFUSION MEDICINE | Routin | 06/30/1998 | | Results for this | | TESTS | e | 5:16 PM | | procedure are in the | | | | PST | | results section. | + +--------+ + + + | COAGULATION TESTS 2 | Routin | 06/30/1998 | | Results for this | | | e | 4:55 PM | | procedure are in the | | | | PST | | results section. | + +--------+ + + + | PULMONARY FUNCTION | Routin | 06/30/1998 | | Results for this | | TESTS | e | 4:20 PM | | procedure are in the | | | | PST | | results section. | + +--------+ + + + | CHEMISTRY TESTS 4 | Routin | 06/30/1998 | | Results for this | | | e | 4:00 PM | | procedure are in the | | | | PST | | results section. | + +--------+ + + + | CBC TESTS 2 | Routin | 06/30/1998 | | Results for this | | | e | 4:00 PM | | procedure are in the | | | | PST | | results section. | + +--------+ + + + | COAGULATION TESTS 2 | Routin | 06/30/1998 | | Results for this | | | e | 4:00 PM | | procedure are in the | | | | PST | | results section. | + +--------+ + + + | URINALYSIS TESTS | Routin | 06/30/1998 | | Results for this | | | e | 4:00 PM | | procedure are in the | | | | PST | | results section. | + +--------+ + + + | BLOOD GASES, | Routin | 06/30/1998 | | Results for this | | ARTERIAL - LAB | e | 3:00 PM | | procedure are in the | | | | PST | | results section. | + +--------+ + + + | CHEMISTRY TESTS 4 | Routin | 05/29/1998 | | Results for this | | | e | 12:48 PM | | procedure are in the | | | | PDT | | results section. | + +--------+ + + + | CBC TESTS 2 | Routin | 05/29/1998 | | Results for this | | | e | 12:48 PM | | procedure are in the | | | | PDT | | results section. | + +--------+ + + + | COAGULATION TESTS 2 | Routin | 05/29/1998 | | Results for this | | | e | 12:48 PM | | procedure are in the | | | | PDT | | results section. | + +--------+ + + + documented in this encounter Results CBC TESTS 2 (07/07/1998 9:45 AM PST) + + + + + + | Component | Value | Ref Range | Performed | Pathologist | | | | | At | Signature | + + + + + + | HEMATOCRIT | 28.9 (L) | % | | | + + + + + + + + | Specimen | + + | | + + + + + + + | Performing | Address | City/State/Zipcode | Phone Number | | Organization | | | | + + + + + | [facility] | [address] | [place] [address] | | | PATHOLOGY | [address] | | | + + + + + CBC TESTS 2 (07/07/1998 3:07 AM PST) + + + + + + | Component | Value | Ref Range | Performed | Pathologist | | | | | At | Signature | + + + + + + | WHITE CELL | 17.3 (H) | K/CU MM | | | | COUNT | | | | | + + + + + + | RED CELL | 2.66 (L) | M/CU MM | | | | COUNT | | | | | + + + + + + | HEMOGLOBIN | 8.2 (L) | GM/DL | | | + + + + + + | HEMATOCRIT | 23.8 (L) | % | | | + + + + + + | MCV | 89.7 | FL | | | + + + + + + | MCH | 30.8 | PG | | | + + + + + + | MCHC | 34.3 (H) | GM/DL | | | + + + + + + | RDW | 14. | % | | | + + + + + + | PLATELET | 322. | K/CU MM | | | | COUNT | | | | | + + + + + + | MPV | 8.7 | FL | | | + + + + + + | NEUTROPHIL | 80. (H) | % | | | | % | | | | | + + + + + + | NEUTROPHIL | FINAL DIFF, SMEAR | % | | | | % | REVIEWED | | | | + + + + + + | LYMPHOCYTE | 10. (L) | % | | | | % | | | | | + + + + + + | MONOCYTE % | 8. | % | | | + + + + + + | EOS % | 1. | % | | | + + + + + + | BASO % | 1. | % | | | + + + + + + | NEUTROPHIL | 13.8 (H) | K/CU MM | | | | # | | | | | + + + + + + | LYMPHOCYTE | 1.8 | K/CU MM | | | | # | | | | | + + + + + + | MONOCYTE # | 1.5 (H) | K/CU MM | | | + + + + + + | EOS # | 0.1 | K/CU MM | [...] | + + + + + | [facility] | [address] | [place] [address] | | | PATHOLOGY | [address] | | | + + + + + COAGULATION TESTS 2 (06/30/1998 6:13 PM PST) + + + + + + | Component | Value | Ref Range | Performed | Pathologist | | | | | At | Signature | + + + + + + | INR | COLLECTD | INR | | | + + + + + + | APTT | COLLECTD | SECONDS | | | + + + + + + + + | Specimen | + + | | + + + + + + + | Performing | Address | City/State/Zipcode | Phone Number | | Organization | | | | + + + + + | [facility] | [address] | [place] [address] | | | PATHOLOGY | [address] | | | + + + + + TRANSFUSION MEDICINE TESTS (06/30/1998 5:16 PM PST) + + + + + + | Component | Value | Ref Range | Performed | Pathologist | | | | | At | Signature | + + + + + + | ABO GROUP | O | | | | + + + + + + | RH TYPE | POS | | | | + + + + + + | ANTIBODY | NEGATIVE | | | | | SCREEN | | | | | + + + + + + + + | Specimen | + + | | + + + + + + + | Performing | Address | City/State/Zipcode | Phone Number | | Organization | | | | + + + + + | [facility] | [address] | [place] [address] | | | PATHOLOGY | [address] | | | + + + + + COAGULATION TESTS 2 (06/30/1998 4:55 PM PST) + + + + + + | Component | Value | Ref Range | Performed | Pathologist | | | | | At | Signature | + + + + + + | INR | 0.93 (L) | INR | | | + + + + + + | APTT | 27.4 | SECONDS | | | + + + + + + + + | Specimen | + + | | + + + + + + + | Performing | Address | City/State/Zipcode | Phone Number | | Organization | | | | + + + + + | [facility] | [address] | [place] [address] | | | PATHOLOGY | [address] | | | + + + + + PULMONARY FUNCTION TESTS (06/30/1998 4:20 PM PST) + + + + + + | Component | Value | Ref Range | Performed | Pathologist | | | | | At | Signature | + + + + + + | FVC | 2.37 | L | | | | MEASURED | | | | | + + + + + + | FVC % PRED | 80. | % | | | + + + + + + | FEV1 | 1.49 | L/S | | | | MEASURED | | | | | + + + + + + | FEV1 % PRED | 62. | % | | | + + + + + + | FEV1/FVC | 63. | % | | | | MEASURED | | | | | + + + + + + | FEF() | 0.72 | L/S | | | + + + + + + | FEF(75) | 28. | % | | | | % PRED | | | | | + + + + + + | FVC POST | 2.78 | L | | | | BD'S | | | | | | MEASURED | | | | | + + + + + + | FVC POST | 94. | % | | | | BD'S % PRED | | | | | + + + + + + | FEV1 POST | 1.74 | L | | | | BD'S | | | | | | MEASURED | | | | | + + + + + + | FEV1 POST | 72. | % | | | | BD'S % PRED | | | | | + + + + + + | FEV1/FVC | 63. | % | | | | POST BD'S | | | | | | MEASURD | | | | | + + + + + + | FEF() | 0.81 | L/S | | | | POST BD'S | | | | | | MEASURD | | | | | + + + + + + | FEF() | 31. | % | | | | POST BD'S % | | | | | | PRED | | | | | + + + + + + | FEV1 BD'S % | 17. | % | | | | CHANGE | | | | | + + + + + + | ABG PH | 7.41 | % | | | + + + + + + | ABG PCO2 | 41. | % | | | + + + + + + | ABG PO2 | 79. | % | | | + + + + + + + + | Specimen | + + | | + + + + + + + | Performing | Address | City/State/Zipcode | Phone Number | | Organization | | | | + + + + + | [facility] | [address] | [place] [address] | | | PATHOLOGY | [address] | | | + + + + + URINALYSIS TESTS (06/30/1998 4:00 PM PST) + + + + + + | Component | Value | Ref Range | Performed | Pathologist | | | | | At | Signature | + + + + + + | COLOR(UR) | STRAW | | | | + + + + + + | APPEARANCE | CLEAR | | | | + + + + + + | GLUCOSE(UR) | NEG | mg/dL | | | + + + + + + | BILIRUBIN | NEG | mg/dL | | | + + + + + + | KETONES | NEG | mg/dL | | | + + + + + + | SPECIFIC | 1.005 | mg/dL | | | | GRAVITY | | | | | + + + + + + | BLOOD | NEG | mg/dL | | | + + + + + + | PH(UR) | 5. | mg/dL | | | + + + + + + | PROTEIN(LAB | NEG | mg/dL | | | | ) | | | | | + + + + + + | UROBILINOGE | 0.2 | RALPH UNITS | | | | N | | | | | + + + + + + | NITRITES | NEG | RALPH UNITS | | | + + + + + + | LEUKOCYTE | SMALL | RALPH UNITS | | | | ESTERASE | | | | | + + + + + + | WHITE CELLS | 0-3 | /HPF | | | + + + + + + | RED CELLS | NONE | /HPF | | | + + + + + + | NON-SQUAMOU | NONE | /HPF | | | | S EPITH | | | | | + + + + + + | SQUAMOUS | FEW | /HPF | | | | EPITHELIAL | | | | | + + + + + + | BACTERIA | NONE | /HPF | | | + + + + + + | MUCOUS | NONE | /HPF | | | + + + + + + | HYALINE | NONE | /LPF | | | | CASTS | | | | | + + + + + + | GRANULAR | NONE | /LPF | | | | CASTS | | | | | + + + + + + | CELLULAR | NONE | /LPF | | | | CASTS | | | | | + + + + + + + + | Specimen | + + | | + + + + + + + | Performing | Address | City/State/Zipcode | Phone Number | | Organization | | | | + + + + + | [facility] | [address] | [place] [address] | | | PATHOLOGY | [address] | | | + + + + + COAGULATION TESTS 2 (06/30/1998 4:00 PM PST) + + + + + + | Component | Value | Ref Range | Performed | Pathologist | | | | | At | Signature | + + + + + + | INR | IMPROPER RATIO | INR | | | | | BLOOD/ANTICOAGULANT | | | | + + + + + + | APTT | IMPROPER RATIO | SECONDS | | | | | BLOOD/ANTICOAGULANT | | | | + + + + + + + + | Specimen | + + | | + + + + + + + | Performing | Address | City/State/Zipcode | Phone Number | | Organization | | | | + + + + + | [facility] | [address] | [place] [address] | | | PATHOLOGY | [address] | | | + + + + + CBC TESTS 2 (06/30/1998 4:00 PM PST) + + + + + + | Component | Value | Ref Range | Performed | Pathologist | | | | | At | Signature | + + + + + + | WHITE CELL | 11. (H) | K/CU MM | | | | COUNT | | | | | + + + + + + | RED CELL | 3.7 (L) | M/CU MM | | | | COUNT | | | | | + + + + + + | HEMOGLOBIN | 11.2 (L) | GM/DL | | | + + + + + + | HEMATOCRIT | 32.3 (L) | % | | | + + + + + + | MCV | 87.2 | FL | | | + + + + + + | MCH | 30.4 | PG | | | + + + + + + | MCHC | 34.8 (H) | GM/DL | | | + + + + + + | RDW | 13.1 | % | | | + + + + + + | PLATELET | 356. | K/CU MM | | | | COUNT | | | | | + + + + + + | MPV | 9.4 | FL | | | + + + + + + + + | Specimen | + + | | + + + + + + + | Performing | Address | City/State/Zipcode | Phone Number | | Organization | | | | + + + + + | [facility] | [address] | [place] [address] | | | PATHOLOGY | [address] | | | + + + + + CHEMISTRY TESTS 4 (06/30/1998 4:00 PM PST) + + + + + [...] + + + + | POTASSIUM, | 4.1 | mmol/l | | | | PLASMA | | | | | | (LAB) | | | | | + + + + + + | CHLORIDE, | 103. | mmol/l | | | | PLASMA | | | | | | (LAB) | | | | | + + + + + + | TOTAL CO2, | 27. | mmol/l | | | | PLASMA | | | | | | (LAB) | | | | | + + + + + + | BUN, PLASMA | 9. | mg/dL | | | | (LAB) | | | | | + + + + + + | CREATININE | 0.8 | mg/dL | | | | PLASMA | | | | | | (LAB) | | | | | + + + + + + | GLUCOSE, | 126. (H) | mg/dL | | | | PLASMA | | | | | | (LAB) | | | | | + + + + + + | CALCIUM, | 10.4 | mg/dL | | | | PLASMA | | | | | | (LAB) | | | | | + + + + + + | PHOSPHORUS, | 4.8 (H) | mg/dL | | | | PLASMA | | | | | | (LAB) | | | | | + + + + + + | AST(SGOT) | 22. | U/L | | | + + + + + + | ALT (SGPT) | 7. | U/L | | | + + + + + + | ALK PHOS | 76. | U/L | | | + + + + + + | BILIRUBIN | 0.1 | mg/dL | | | | DIRECT | | | | | + + + + + + | BILIRUBIN | 0.2 | mg/dL | | | | TOTAL | | | | | + + + + + + | TOTAL | 7.3 | GM/DL | | | | PROTEIN, | | | | | | PLASMA | | | | | | (LAB) | | | | | + + + + + + | ALBUMIN, | 4.1 | GM/DL | | | | PLASMA | | | | | | (LAB) | | | | | + + + + + + + + | Specimen | + + | | + + + + + + + | Performing | Address | City/State/Zipcode | Phone Number | | Organization | | | | + + + + + | [facility] | [address] | [place] [address] | | | PATHOLOGY | [address] | | | + + + + + BLOOD GASES, ARTERIAL - LAB (06/30/1998 3:00 PM PST) + + + + + + | Component | Value | Ref Range | Performed | Pathologist | | | | | At | Signature | + + + + + + | PAT TEMP | NG | DEGREES C. | | | | ARTERIAL | | | | | + + + + + + | FIO2 | RA | DEGREES C. | | | | ARTERIAL | | | | | + + + + + + | PH ARTERIAL | 7.41 | DEGREES C. | | | + + + + + + | PCO2 | 41. | MM HG | | | | ARTERIAL | | | | | + + + + + + | PO2 | 79. | MM HG | | | | ARTERIAL | | | | | + + + + + + | BASE EXCESS | 2.3 | MM HG | | | | ARTERIAL | | | | | + + + + + + | HCO3 | 26. | mmol/l | | | | ARTERIAL | | | | | + + + + + + | TOTAL CO2 | 28. | mmol/l | | | | ARTERIAL | | | | | + + + + + + | CALC %O2 | 95.6 | % O2 Sat | | | | SAT ARTER | | | | | + + + + + + + + | Specimen | + + | | + + + + + + + | Performing | Address | City/State/Zipcode | Phone Number | | Organization | | | | + + + + + | [facility] | [address] | [place] [address] | | | PATHOLOGY | [address] | | | + + + + + CHEMISTRY TESTS 4 (05/29/1998 12:48 PM PDT) + + + + + + | Component | Value | Ref Range | Performed | Pathologist | | | | | At | Signature | + + + + + + | SODIUM, | 146. | mmol/l | | | | PLASMA | | | | | | (LAB) | | | | | + + + + + + | POTASSIUM, | 4.8 | mmol/l | | | | PLASMA | | | | | | (LAB) | | | | | + + + + + + | CHLORIDE, | 99. | mmol/l | | | | PLASMA | | | | | | (LAB) | | | | | + + + + + + | BUN, PLASMA | 10. | mg/dL | | | | (LAB) | | | | | + + + + + + | CREATININE | 1. | mg/dL | | | | PLASMA | | | | | | (LAB) | | | | | + + + + + + | GLUCOSE, | 97. | mg/dL | | | | PLASMA | | | | | | (LAB) | | | | | + + + + + + | CALCIUM, | 11. (H) | mg/dL | | | | PLASMA | | | | | | (LAB) | | | | | + + + + + + | AST(SGOT) | 20. | U/L | | | + + + + + + | ALK PHOS | 94. | U/L | | | + + + + + + | LD TOTAL, | 132. | U/L | | | | PLASMA | | | | | + + + + + + | BILIRUBIN | 0.5 | mg/dL | | | | TOTAL | | | | | + + + + + + | TOTAL | 8.2 (H) | GM/DL | | | | PROTEIN, | | | | | | PLASMA | | | | | | (LAB) | | | | | + + + + + + | TOTAL | CHECKED | GM/DL | | | | PROTEIN, | | | | | | PLASMA | | | | | | (LAB) | | | | | + + + + + + | ALBUMIN, | 4.9 | GM/DL | | | | PLASMA | | | | | | (LAB) | | | | | + + + + + + + + | Specimen | + + | | + + + + + + + | Performing | Address | City/State/Zipcode | Phone Number | | Organization | | | | + + + + + | [facility] | [address] | [place] [address] | | | PATHOLOGY | [address] | | | + + + + + COAGULATION TESTS 2 (05/29/1998 12:48 PM PDT) + + + + + + | Component | Value | Ref Range | Performed | Pathologist | | | | | At | Signature | + + + + + + | INR | 0.92 (L) | INR | | | + + + + + + | APTT | 29.6 | SECONDS | | | + + + + + + + + | Specimen | + + | | + + + + + + + | Performing | Address | City/State/Zipcode | Phone Number | | Organization | | | | + + + + + | [facility] | [address] | [place] [address] | | | PATHOLOGY | [address] | | | + + + + + CBC TESTS 2 (05/29/1998 12:48 PM PDT) + + + + + + | Component | Value | Ref Range | Performed | Pathologist | | | | | At | Signature | + + + + + + | WHITE CELL | 9.9 | K/CU MM | | | | COUNT | | | | | + + + + + + | RED CELL | 4.71 | M/CU MM | | | | COUNT | | | | | + + + + + + | HEMOGLOBIN | 14.4 | GM/DL | | | + + + + + + | HEMATOCRIT | 41.5 | % | | | + + + + + + | MCV | 88.1 | FL | | | + + + + + + | MCH | 30.7 | PG | | | + + + + + + | MCHC | 34.8 (H) | GM/DL | | | + + + + + + | RDW | 12.2 | % | | | + + + + + + | PLATELET | 262. | K/CU MM | | | | COUNT | | | | | + + + + + + | MPV | 9.4 | FL | | | + + + + + + | NEUTROPHIL | 60. | % | | | | % | | | | | + + + + + + | LYMPHOCYTE | 27. | % | | | | % | | | | | + + + + + + | MONOCYTE % | 7. | % | | | + + + + + + | EOS % | 5. | % | | | + + + + + + | BASO % | 1. | % | | | + + + + + + | NEUTROPHIL | 5.9 | K/CU MM | | | | # | | | | | + + + + + + | LYMPHOCYTE | 2.7 | K/CU MM | | | | # | | | | | + + + + + + | MONOCYTE # | 0.7 (H) | K/CU MM | | | [...] | + + + + + | [facility] | [address] | [place] [address] | | | PATHOLOGY | [address] | | | + + + + + documented in this encounter Visit Diagnoses Not on filedocumented in this encounter"
--- OUTSIDE RECORDS SUMMARY | ~2020-02-24 | XMS | Encounter Summary ---
Demographics + + + | Address | [address] [place] [address] Ln | | | [place] [address] | + + + | Home Phone | | + + + | Preferred Language | Unknown | + + + | Marital Status | | + + + | Protestant Affiliation | LINDSAY | + + + | Race | White | + + + | Ethnic Group | Not or | + + + Author + + + | Author | [facility] | + + + | Organization | [facility] | + + + | Address | Unknown | + + + | Phone | Unavailable | + + + Support + + + + + | Name | Relationship | Address | Phone | + + + + + | Jeni Shirley | ECON | [facility] | | | | | [place] [address] | | + + + + + Care Team Providers + +------+ + | Care Sheet Rock Applicator Name | Role | Phone | + [...] Description | +--------+--------+ + + + | 07/11/ | Refill | [facility] | Eladio Lynch, | Refill Request | | 2004 | | Medicine at [facility] | [address] | | | | | [place] [address] [facility] | [place], [place] | | | | | [address] | [address] | | | | | Mailcode: MINDY Albarran | [phone] | | | | | [address] | | | | | | [place], [place] | | | | | | [address] | | | | | | [phone] | | | +--------+--------+ + + + [...]
--- OUTSIDE RECORDS SUMMARY | ~2020-02-24 | XMS | Encounter Summary ---
Demographics + + + | Address | [address] | | | [place] [address] | + + + | Home Phone | | + + + | Preferred Language | Unknown | + + + | Marital Status | | + + + | Yazidism Affiliation | [id number] | + + + | Race | Unknown | + + + | Ethnic Group | Unknown | + + + Author + + + | Author | Located Within [facility] | | | and [facility] | + + + | Organization | Located Within [facility] | | | and [facility] [...] Team Providers + +------+ + | Care Laborer [employer] Name | Role | Phone | + +------+ + | Krista Alvarez | PCP | | | PA | | | + +------+ + Encounter Details +--------+ + + + + | Date | Type | Department | Care Team | Description | +--------+ + + + + | 04/24/ | Imaging | [facility] | Provider, | | | 2018 | Exam | [facility] | MD [address] | | | | | [facility] | | | | | [address] | [place] [address] | | | | | [place] [address] | | | | | | [phone] | | | +--------+ + + + + Social History + + + +--------+ + | Tobacco Use | Types | Packs/Day | Years | Date | | | | | Used | | + + + +--------+ + | Current Every Day | Cigarettes | 0.5 | 62 | Quit: 10/19/2014 | | Smoker | | | | | + + + +--------+ + + +---+---+---+ | Smokeless Tobacco: | | | | | Never Used | | | | + +---+---+---+ + + | Comments: smoking about 2 cigs a day | + + + + +---------+ + | Alcohol Use [...] | + +--------+ + + + | XR LUMBAR SPINE 2 OR | Routin | 01/23/2018 | | Results for this | | 3 VW | e | 5:20 PM | | procedure are in the | | | | PDT | | results section. | + +--------+ + + + documented in this encounter Results XR Lumbar Spine 2 or 3 Vw (01/23/2018 5:20 PM PDT) + + | Specimen | + + | | + + + + + | Narrative | Performed At | + + + | External films for comparison only | [facility] | | | | | No results will be in the chart. | | + + + + +---------+ + + | Performing | Address | City/State/Zipcode | Phone Number | | Organization | | | | + +---------+ + + | [facility] | | | | + +---------+ + + documented in this encounter Visit Diagnoses Not on filedocumented in this encounter"
--- OUTSIDE RECORDS SUMMARY | ~2020-02-24 | XMS | Encounter Summary ---
Demographics + + + | Address | [address] [place] [address] Ln | | | [place] [address] | + + + | Home Phone | | + + + | Preferred Language | Unknown | + + + | Marital Status | | + + + | Rastafarian Affiliation | LINDSAY | + + + | Race | White | + + + | Ethnic Group | Not or | + + + Author + + + | Author | [facility] | + + + | Organization | [facility] | + + + | Address | Unknown | + + + | Phone | Unavailable | + + + Support + + + + + | Name | Relationship | Address | Phone | + + + + + | Jeni Shirley | ECON | UA | | | | | [place] [address] | | + + + + + Care Team Providers + +------+ + | Care Garage Supervisor Name | Role | Phone | + +------+ + | Eladio Lynch MD | PCP | | + +------+ + Reason for Visit + + + | Reason | Comments | + + + | Follow-up visit | diabetes, medications | + + + Encounter Details +--------+---------+ + + + | Date | Type | Department | Care Team | Description | +--------+---------+ + + + | 03/19/ | Office | [facility] Primary Care | Eladio Lynch, | Unspecified Backache | | 2006 | Visit | at [facility] | MD [address] | (Primary Dx) | | | | [address] | [place], [place] | | | | | [facility] | [address] | | | | | and Healing, | [phone] | | | | | Building | | | | | | Floor [place], [place] | | | | | | [address] | | | | | | [phone] | | | +--------+---------+ + + + [...] + + + | Blood Pressure | 98/62 | 03/19/2007 2:17 PM | | | | | PDT | | + + + + + | Pulse | 110 | 03/19/2007 2:17 PM | | | | | PDT [...] + + + + | Weight | 86.2 kg (190 lb) | 03/19/2007 2:17 PM | | | | | PDT | | + + + + + | Height | 155.6 cm (5' 1.25") | 03/19/2007 2:17 PM | | | | | PDT | | + + + + + | Body Mass Index | 35.61 | 03/19/2007 2:17 PM | | | | | PDT | | + + + + + documented in this encounter Progress Notes Eladio Lynch - 04/23/2007 11:43 AM PDTFormatting of this note might be different from t gonzalez original. ID: Martha Toth is a 66 y.o. Female CC: NIDDM HPI: Martha Toth has had difficulty with glucose mgmt, complicated by choice limitation se condary to cost. She reports checking her sugars less regularly and guess 150 for her sugar now. Patient Active Problem List Diagnoses Code UNSPECIFIED [...] LUNG, UNSPECIFIED SITE 162.9 Current outpatient prescriptions prior to encounter Medication Sig Dispense Refill Amitriptyline HCl 50 mg OR TABS 2 po qhs 60 12 ALBUTEROL SULFATE HFA 90 MCG/ACTUATION AEROSOL INHALER inhale [address] inhalation rout e every 4-6 hours as needed 17 4 LISINOPRIL 10 MG TAB take 1 tablet (10mg) by oral route once daily 30 12 LASIX 40 MG TAB take 1 tablet (40mg) by oral route once daily and 1/2 qhs 50 12 INSULIN 70/30 70 UNIT-30 UNIT/ML SUSP, SUB-Q INJ inject by subcutaneous route per insul in protocol 20 11 ALBUTEROL (REFILL) 90 MCG/ACTUATION AEROSOL INHALER HFA Inhaler. Inhale 1 puff by inha lation route every 4-6 hours as needed 1 12 SOMA 350 MG TAB 1 po qid 120 1 ATIVAN 0.5 MG TAB take 2 tablets (1mg) by oral route 3 times per day as needed 30 0 VISTARIL 25 MG CAP take 1 capsule (25mg) by oral route 4 times per day 30 1 ZOLOFT 100 MG TAB take 1 tablet (100mg) by oral route once daily 30 12 ASPIRIN 325 MG ORAL TAB None Entered Allergies Allergen Reactions Clarification Needed MILK,BEES, PCN,BLOOD Penicillins Hives Physical Examination Blood pressure 98/62, pulse 110, height 1.556 m (5' 1"), weight 86.183 kg (190 lbs). Patient is alert and oriented times three. no apparent distress Abd +BS Ext -tr edema ASSESSMENT: 1) NIDDM - adjusted her sliding scale and am/ pm schedule, reviewed the need to monitor sugars. CBG today >300 Encounter Diagnoses Code Name Primary? 724.5 Unspecified Backache Yes Plan: VICODIN ES 7.5 MG-750 MG TAB Refill current medications per medication care agreement @ [facility], family medicine as above. Marina Almanzar Rn - 03/19 2:30 PM PDTPt's cbg 335. documented in this encounter Plan of Treatment Not on filedocumented as of this encounter Visit Diagnoses + + | Diagnosis | + + | Backache, unspecified - Primary | + + documented in this encounter
--- OUTSIDE RECORDS SUMMARY | ~2020-02-24 | XMS | Encounter Summary ---
Demographics + + + | Address | [address] [place] [address] Ln | | | [place] [address] | + + + | Home Phone [...] + + + | Author | [facility] | + + + | Organization | [facility] | + + + | Address | Unknown | + + + | Phone | Unavailable | + + + Support + + + + + | Name | Relationship | Address | Phone | + + + + + | Jeni Shirley | ECON | UA | | | | | [place] [address] | | + + + + + Care Team Providers + +------+ + | Care Comparator Operator Name | Role | Phone | [...] Description | +--------+--------+ + + + | 09/10/ | Refill | [facility] | Lynch, Eladio, | Refill Request | | 2013 | | at [facility] | MD [address] | | | | | [address] | [place], [place] | | | | | [facility] | [address] | | | | | and Healing, | [phone] | | | | | Building | | | | | | Floor [facility] [place] | | | | | | [address] | | | | | | [phone] | | | +--------+--------+ + + + [...]
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
--- OUTSIDE RECORDS SUMMARY | ~2020-02-24 | XMS | Encounter Summary ---
Demographics + + + | Address | [address] [place] [address] Ln | | | [place] [address] | + + + | Home Phone [...] | | | | | [place] [address] | | + + + + + Care Team Providers + +------+ + | Care Camera Assembler Name | Role | Phone | [...] Description | +--------+--------+ + + + | 11/30/ | Refill | [facility] | Lynch, Eladio, | Refill Request | | 2007 | | at [facility] | MD [address] | | | | | [address] | [place], [place] | | | | | [facility] | [address] | | | | | and Healing, | [phone] | | | | | Building | | | | | | Floor [facility] [place] | | | | | | [address] | | | | | | [phone] | | | +--------+--------+ + + + [...]
--- OUTSIDE RECORDS SUMMARY | ~2020-02-24 | XMS | Encounter Summary ---
Demographics + + + | Address | [address] [place] [address] Ln | | | [place] [address] | + + + | Home Phone | | + + + | Preferred Language | Unknown | + + + | Marital Status | | + + + | Christian Affiliation | LINDSAY | + + + | Race | White | + + + | Ethnic Group | Not or | + + + Author + + + | Author | [facility] | + + + | Organization | [facility] | + + + | Address | Unknown | + + + | Phone | Unavailable | + + + Support + + + + + | Name | Relationship | Address | Phone | + + + + + | Jeni Shirley | ECON | [place]A | | | | | [place] [address] | | + + + + + Care Team Providers + +------+ + | Care Regional Sales Executive Name | Role | Phone | + [...] Description | +--------+--------+ + + + | 08/09/ | Refill | [facility] | Lynch, Eladio, | Refill Request | | 2013 | | at [facility] | MD [address] | | | | | [address] | [place], [place] | | | | | [facility] | [address] | | | | | and Healing, | [phone] | | | | | Building | | | | | | Floor [facility] [place] | | | | | | [address] | | | | | | [phone] | | | +--------+--------+ + + + [...]
--- OUTSIDE RECORDS SUMMARY | ~2020-02-24 | XMS | Encounter Summary ---
Demographics + + + | Address | [address] [place] [address] Ln | | | [place] [address] | + + + | Home Phone | | + + + | Preferred Language | Unknown | + + + | Marital Status | | + + + | Presybeterian Affiliation | LINDSAY | + + + [...] | | | | | [place] [address] | | + + + + + Care Team Providers + +------+ + | Care Bridge Painter Helper Name | Role | Phone | + +------+ + | Eladio Lynch MD | PCP | | + +------+ + Encounter Details +--------+ + + + + | Date | Type | Department | Care Team | Description | +--------+ + + + + | 10/02/ | Office | [facility] | Note, [...] as of this encounter Progress Notes Interface, Layer Off In - 08/05/2006 1:03 AM PSTCLINIC DATE: 10/02/1998 [facility] SUBJECTIVE: Ms. Toth is a 58-year-old female who presents with history of right sided chest pain, status post operation with partial pneumonectomy and lobectomy for isolated mass that did not require chemotherapy or radiation therapy. She since that time has had pain that is pleuritic in nature, not necessarily associated with deep breaths, but grabbing and stab like pain beneath her right breast, just anterior to the external scar line that is disabling. She states that the Vicodin helps not with the frequency of these grabbing pains, but the intensity is less noticable. OBJECTIVE: She is in no acute distress. VITAL SIGNS: Stable. CHEST: Her scar is well healed. Her lungs are rhonchorous in both right and left lung perdomo. The skin surrounding her scar line has mild anesthesia, there is no skin dysesthesia. There is no reproducible pain except anterior and inferior to the scar line with pressure on the rib causing pain. ABDOMEN Soft, positive bowel sounds. ASSESSMENT: Possible secondary bronchitis with history of chronic obstructive pulmonary disease and reactive airway disease. The patient to use a nebulizer. Will get a PA and lateral chest x-ray to check for pleural effusions that might be causing some of her chest pain and contract her to some pain medication as well. Eladio Lynch M.D. ROSIE/clari d ocumented in this encounter Plan of Treatment Not on filedocumented as of this encounter Visit Diagnoses Not on filedocumented in this encounter"
--- OUTSIDE RECORDS SUMMARY | ~2020-02-24 | XMS | Encounter Summary ---
Demographics + + + | Address | [address] [place] [address] Ln | | | [place] [address] | + + + | Home Phone | | + + + | Preferred Language | Unknown | + + + | Marital Status | | + + + | Sabianist Affiliation | LINDSAY | + + + | Race | White | + + + | Ethnic Group | Not or | + + + Author + + + | Author | [facility] | + + + | Organization | [facility] | + + + | Address | Unknown | + + + | Phone | Unavailable | + + + Support + + + + + | Name | Relationship | Address | Phone | + + + + + | Jeni Shirley | ECON | [place] | | | | | [place] [address] | | + + + + + Care Team Providers + +------+ + | Care Cementer Hand Name | Role | Phone | + +------+ + | Eladio Lynch MD | PCP | | + +------+ + Encounter Details +--------+ + + + + | Date | Type | Department | Care Team | Description | +--------+ + + + + | 03/17/ | Office | [facility] | Note, [...] as of this encounter Progress Notes Interface, Automotive Lot Attendant In - 01/24/2006 3:11 AM PDTCLINIC DATE: 03/17/2003 [facility] CHIEF COMPLAINT: Followup swelling in right foot. HISTORY OF PRESENT ILLNESS: Martha is a middle-aged woman with diabetes and severe peripheral vascular disease. She was seen in the clinic on Monday with localized swelling in her right foot which she felt secondary to an insect bite. This was exquisitely tender, and finally an attempt was made to aspirate fluid from the localized region of swelling on Monday; however, this was unsuccessful. Martha was started on a course of erythromycin (PENICILLIN ALLERGIC AND DIARRHEA OCCURRED WITH CEPHALOSPORIN). She has tolerated this medicine well. Her thinks that the swelling has actually increased since Monday, and she thinks it may be about the same. It is still extremely tender and painful and is actually difficult to walk. PHYSICAL EXAMINATION VITAL SIGNS: Blood pressure 119/50, pulse 72, respiratory rate 18, and weight 152.3. GENERAL: This is a pleasant woman in no acute distress. EXTREMITIES: Focused physical exam. Localized approximately 3 to 4 cm diameter area of swelling over the third and fourth metatarsals dorsally. This does appear somewhat less protuberant than on Monday, however, is overall not significantly changed. The area is cold to the touch as is the rest of the foot, and there is distal ecchymosis. The entire area is extremely tender even to gentle palpation. There is a question of fluctuance, but this is difficult to assess given the patient's tenderness. PROCEDURE: Discussion was held of her options including continued antibiotics with watchful waiting, repeat aspiration, or incision and drainage. I was hesitant about the latter given the patient's severe diabetes and peripheral vascular disease which would lead her to be a poor healer. Given my relatively low suspicion that this represented an abscess, I was somewhat hesitant to pursue this. However, as Martha may not be able to mount a typical localized response to an abscess and as both she and her daughter wanted more aggressive management given the level of pain in the region, decision was made first to attempt aspiration (this was unsuccessful) and then to pursue incision and drainage. PARQ conference was held and the area was prepped with Betadine and an approximately 5- to 6-mm incision was made with #11 blade scalpel, after local injection of 1% lidocaine without epinephrine. On incision, the swelling was found to represent a hematoma, and the entire area was drained through the incision. The patient tolerated the procedure well and good hemostasis was obtained and a pressure bandage applied. ASSESSMENT: Hematoma, right foot. PLAN: Incised and drained. Continue to keep the area clean and dry. Warning signs and symptoms for infection reviewed. Recommended complete course of erythromycin as previously directed. Follow up with primary care provider, deangelo Hale. MD Kofi Hahn M.D. MICHAEL / [id number] / [id number] / [id number] / [id number] Tdocumented in this encounter Plan of Treatment Not on filedocumented as of this encounter Visit Diagnoses Not on filedocumented in this encounter"
--- OUTSIDE RECORDS SUMMARY | ~2020-02-24 | XMS | Encounter Summary ---
Demographics + + + | Address | [address] [place] [address] Ln | | | [place] [address] | + + + | Home Phone [...] | | | | | [place] [address] | | + + + + + Care Team Providers + +------+ + | Care Senior Contract Specialist Name | Role | Phone | + +------+ + | Unknown | PCP | Unavailable | + +------+ + Encounter Details +--------+ + + + + | Date | Type | Department | Care Team | Description | +--------+ + + + + | 08/22/ | Results | Registration [id number] | | | | 1997 | Only | [address] | | | | | | [address] Mailcode: [address] | | | | | | [place], [place] | | | | | | [address] | | | | | | [phone] | | | +--------+ + + + [...] | CHEMISTRY TESTS 4 | Routin | 08/22/1997 | | Results for this | | | e | 12:25 PM | | procedure are in the | | | | PST | | results section. | + +--------+ + + + | CHEMISTRY TESTS 4 | Routin | 08/22/1997 | | Results for this | | | e | 12:25 PM | | procedure are in the | | | | PST | | results section. | + +--------+ + + + | CBC TESTS 2 | Routin | 08/22/1997 | | Results for this | | | e | 12:25 PM | | procedure are in the | | | | PST | | results section. | + +--------+ + + + | CHEMISTRY TESTS 2 | Routin | 08/22/1997 | | Results for this | | | e | 12:25 PM | | procedure are in the | | | | PST | | results section. | + +--------+ + + + | MISCELLANEOUS | Routin | 08/22/1997 | | Results for this | | CHEMISTRY TESTS | e | 12:25 PM | | procedure are in the | | | | PST | | results section. | + +--------+ + + + | URINE CHEMISTRY | Routin | 08/22/1997 | | Results for this | | TESTS | e | 12:20 PM | | procedure are in the | | | | PST | | results section. | + +--------+ + + + documented in this encounter Results CHEMISTRY TESTS 2 (08/22/1997 12:25 PM PST) + + + + + + | Component | Value | Ref Range | Performed | Pathologist | | | | | At | Signature | + + + + + + | CHOLESTEROL | 144. (L) | mg/dL | | | | (LAB) | | | | | + + + + + + | TRIGLYCERID | 238. (H) | mg/dL | | | | ES | | | | | + + + + + + | HDL | 38. | mg/dL | | | | CHOLESTEROL | | | | | + + + + + + | LDL CHOLEST | 58. (L) | mg/dL | | | + + + + + + + + | Specimen | + + | | + + + + + + + | Performing | Address | City/State/Zipcode | Phone Number | | Organization | | | | + + + + + | [facility] | [address] | [place] [address] | | | PATHOLOGY | [address] | | | + + + + + CHEMISTRY TESTS 4 (08/22/1997 12:25 PM PST) + + + + + + | Component | Value | Ref Range | Performed | Pathologist | | | | | At | Signature | + + + + + + | BUN, PLASMA | 13. | mg/dL | | | | (LAB) | | | | | + + + + + + | CREATININE | 1.2 | mg/dL | | | | PLASMA | | | | | | (LAB) | | | | | + + + + + + | CALCIUM, | 10.4 | mg/dL | | | | PLASMA | | | | | | (LAB) | | | | | + + + + + + | PHOSPHORUS, | 4.2 | mg/dL | | | | PLASMA | | | | | | (LAB) | | | | | + + + + + + | AST(SGOT) | 22. | U/L | | | + + + + + + | ALT (SGPT) | 11. | U/L | | | + + + + + + | ALK PHOS | 130. (H) | U/L | | | + + + + + + | BILIRUBIN | 0.4 | mg/dL | | | | TOTAL | | | | | + + + + + + | TOTAL | 7.7 | GM/DL | | | | PROTEIN, | | | | | | PLASMA | | | | | | (LAB) | | | | | + + + + + + | ALBUMIN, | 4.8 | GM/DL | | | | PLASMA | | | | | | (LAB) | | | | | + + + + + + + + | Specimen | + + | | + + + + + + + | Performing | Address | City/State/Zipcode | Phone Number | | Organization | | | | + + + + + | [facility] | [address] | [place] [address] | | | PATHOLOGY | [address] | | | + + + + + CBC TESTS 2 (08/22/1997 12:25 PM PST) + + + + + + | Component | Value | Ref Range | Performed | Pathologist | | | | | At | Signature | + + + + + + | WHITE CELL | 11.7 (H) | K/CU MM | | | | COUNT | | | | | + + + + + + | RED CELL | 5.62 (H) | M/CU MM | | | | COUNT | | | | | + + + + + + | HEMOGLOBIN | 16.5 (H) | GM/DL | | | + + + + + + | HEMATOCRIT | 49. (H) | % | | | + + + + + + | MCV | 87. | FL | | | + + + + + + | MCH | 29.4 | PG | | | + + + + + + | MCHC | 33.8 | GM/DL | | | + + + + + + | RDW | 11.4 (L) | % | | | + + + + + + | PLATELET | 270. | K/CU MM | | | | COUNT | | | | | + + + + + + | MPV | 10.8 (H) | FL | | | + + + + + + + + | Specimen | + + | | + + + + + + + | Performing | Address | City/State/Zipcode | Phone Number | | Organization | | | | + + + + + | [facility] | [address] | [place] [address] | | | PATHOLOGY | [address] | | | + + + + + MISCELLANEOUS CHEMISTRY TESTS (08/22/1997 12:25 PM PST) + + + + + + | Component | Value | Ref Range | Performed | Pathologist | | | | | At | Signature | + + + + + + | TSH | 0.47 | mIU/ML | | | + + + + + + | LUTEINIZING | 22. | mIU/ML | | | | | | | | | | HORMONE,SER | | | | | | UM | | | | | + + + + + + + + | Specimen | + + | | + + + + + + + | Performing | Address | City/State/Zipcode | Phone Number | | Organization | | | | + + + + + | [facility] | [address] | [place] [address] | | | PATHOLOGY | [address] | | | + + + + + CHEMISTRY TESTS 4 (08/22/1997 12:25 PM PST) + + + + + + | Component | Value | Ref Range | Performed | Pathologist | | | | | At | Signature | + + + + + + | HEMOGLOBIN | 12.6 (H) | % | | | | A1C | | | | | + + + + + + + + | Specimen | + + | | + + + + + + + | Performing | Address | City/State/Zipcode | Phone Number | | Organization | | | | + + + + + | [facility] | [address] | [place] [address] | | | PATHOLOGY | [address] | | | + + + + + URINE CHEMISTRY TESTS (08/22/1997 12:20 PM PST) + +--------+ + + + | Component | Value | Ref Range | Performed | Pathologist | | | | | At | Signature | + +--------+ + + + | URINE | SPOT | mL | | | | VOLUME | | | | | + +--------+ + + + | UR | RANDOM | hrs | | | | COLLECTION | | | | | | TIME | | | | | + +--------+ + + + | TOTAL | N/A | hrs | | | | RESULTS PER | | | | | + +--------+ + + + | MICROALBUMI | <3.0 | mg/L | | | | N, URINE | | | | | | TIMED | | | | | + +--------+ + + + + + | Specimen | + + | | + + + + + + + | Performing | Address | City/State/Zipcode | Phone Number | | Organization | | | | + + + + + | [facility] | [address] | [place] [address] | | | PATHOLOGY | [address] | | | + + + + + documented in this encounter Visit Diagnoses Not on filedocumented in this encounter"
--- OUTSIDE RECORDS SUMMARY | ~2020-02-24 | XMS | Encounter Summary ---
Demographics + + + | Address | [address] [place] [address] Ln | | | [place] [address] | + + + | Home Phone | | + + + | Preferred Language | Unknown | + + + | Marital Status | | + + + | Orthodoxy Affiliation | LINDSAY | + + + | Race | White | + + + | Ethnic Group | Not or | + + + Author + + + | Author | [facility] | + + + | Organization | [facility] | + + + | Address | Unknown | + + + | Phone | Unavailable | + + + Support + + + + + | Name | Relationship | Address | Phone | + + + + + | Jeni Shirley | ECON | UA | | | | | [place] [address] | | + + + + + Care Team Providers + +------+ + | Care Variety Lathe Operator Name | Role | Phone | [...] Description | +--------+--------+ + + + | 02/02/ | Refill | [facility] | Eladio Lynch, | Refill Request | | 2005 | | Medicine at [facility] | [address] | | | | | [place] [facility] | [place], [place] | | | | | [address] | [address] | | | | | Mailcode: [address] [address] | [phone] | | | | | [address] | | | | | | [place], [place] | | | | | | [address] | | | | | | [phone] | | | +--------+--------+ + + + [...]
--- OUTSIDE RECORDS SUMMARY | ~2020-02-24 | XMS | Encounter Summary ---
Demographics + + + | Address | [address] [place] [address] Ln | | | [place] [address] | + + + | Home Phone | | + + + | Preferred Language | Unknown | + + + | Marital Status | | + + + | Spiritism Affiliation | LINDSAY | + + + | Race | White | + + + | Ethnic Group | Not or | + + + Author + + + | Author | [facility] | + + + | Organization | [facility] | + + + | Address | Unknown | + + + | Phone | Unavailable | + + + Support + + + + + | Name | Relationship | Address | Phone | + + + + + | Jeni Shirley | ECON | UA | | | | | [place] [address] | | + + + + + Care Team Providers + +------+ + | Care Lead Quality Technician Name | Role | Phone | + +------+ + | Eladio Lynch MD | PCP | | + +------+ + Encounter Details +--------+ + + + + | Date | Type | Department | Care Team | Description | +--------+ + + + + | 05/30/ | Office | [facility] | Eladoi Lynch, | | | 2004 | Visit-ECX | Medicine at [facility] | [address] | | | | | [address] | [place], [place] | | | | | [address] | [address] | | | | | Mailcode: [address] | [phone] | | | | | [address] | | | | | | [place], [place] | | | | | | [address] | | | | | | [phone] | | | +--------+ + + + [...] + + + | Blood Pressure | 110/70 | 05/30/2005 1:27 PM | | | | | PDT | | + + + + + | Pulse | 84 | 05/30/2005 1:27 PM | | | | | PDT | | + + + + + | Temperature | - | - | | + + + + + | Respiratory Rate | 20 | 05/30/2005 1:27 PM | | | | | PDT | | + + + + + | Oxygen Saturation | - | - | | + + + + + | Inhaled Oxygen | - | - | | | Concentration | | | | + + + + + | Weight | 78.5 kg (173 lb) | 05/30/2005 1:27 PM | | | | | PDT [...]
--- OUTSIDE RECORDS SUMMARY | ~2020-02-24 | XMS | Encounter Summary ---
Demographics + + + | Address | [address] [place] [address] Ln | | | [place] [address] | + + + | Home Phone | | + + + | Preferred Language | Unknown | + + + | Marital Status | | + + + | Orthodox Affiliation | LINDSAY | + + + [...] | | | | | [place] [address] | | + + + + + Care Team Providers + +------+ + | Care Concrete Crusher Loader Operator Name | Role | Phone | + +------+ + | Eladio Lynch MD | PCP | | + +------+ + Encounter Details +--------+ + + + + | Date | Type | Department | Care Team | Description | +--------+ + + + + | 11/28/ | Office | [facility] | Note, Outpatient | Progress Note | | 1999 | Visit-Trans | MEDICINE | Clinic | [...] as of this encounter Progress Notes Interface, Disassembler Product In - 06/26/2006 5:25 AM PSTCLINIC DATE: 11/29/1999 [facility] SUBJECTIVE: Ms. Thomas is here for followup of her lateral epicondylitis which, without casting or referral to Dr. Patton, has finally dissipated, to the point that she is able to use her arm for all of her daily activities with hardly noticed above discomfort. She has other questions concerning the potential of stopping her amitriptyline and putting her on some other medication for depression, due to drying effect of the amitriptyline and the fact that she seems depressed despite it. She has been on Zoloft historically and that seems to have done well. She also has a contract for pain medication that includes Vicodin one p.o. q.i.d. and Soma one p.o. q.i.d. I have made a concerted effort at educating her that these two medications likely were contributing a great deal to her chronic depression. She seems to be equally frustrated by this, but feels her pain is significant enough to warrant their use. Her pain is primarily back pain. OBJECTIVE: GENERAL: She is in no apparent distress. VITAL SIGNS: Stable. Her weight is unchanged at 146 pounds. ASSESSMENT: Chronic back pain. PLAN 1. Continue with her contract. 2. Depression. We will restart her Zoloft and have her follow up in one month to discuss any improvements in her symptoms. Eladio Lynch M.D. [facility] / [id number] / [id number] / [id number] / [id number] signed by Interface, Disassembler Product In at 06/26/2006 5:25 AM PSTdocume nted in this encounter Plan of Treatment Not on filedocumented as of this encounter Visit Diagnoses Not on filedocumented in this encounter"
--- OUTSIDE RECORDS SUMMARY | ~2020-02-24 | XMS | Encounter Summary ---
Demographics + + + | Address | [address] [place] [address] Ln | | | [place] [address] | + + + | Home Phone [...] Author | [facility] | + + + | Organization | [facility] | + + + | Address | Unknown | + + + | Phone | Unavailable | + + + Support + + + + + | Name | Relationship | Address | Phone | + + + + + | Jeni Shirley | ECON | UA | | | | | [place] [address] | | + + + + + Care Team Providers + +------+ + | Care Link Trainer Maintenance Man Name | Role | Phone | + +------+ + | Eladio Lynch MD | PCP | | + +------+ + Encounter Details +--------+ + + + + | Date | Type | Department | Care Team | Description | +--------+ + + + + | 09/06/ | Abstract | [facility] | Eladio Lynch, | | | 2005 | | Medicine at [facility] | [address] | | | | | [address] | [place], [place] | | | | | [address] | [address] | | | | | Mailcode: [place] [address] | [phone] | | | | | [address] | | | | | | [place], [place] | | | | | | [address] | | | | | | [phone] | | | +--------+ + + + [...] Primary | + + documented in this encounter"
--- OUTSIDE RECORDS SUMMARY | ~2020-02-24 | XMS | Encounter Summary ---
Demographics + + + | Address | [address] [place] [address] Ln | | | [place] [address] | + + + | Home Phone | | + + + | Preferred Language | Unknown | + + + | Marital Status | | + + + | Jewish Affiliation | LINDSAY | + + + | Race | White | + + + | Ethnic Group | Not or | + + + Author + + + | Author | [facility] | + + + | Organization | [facility] | + + + | Address | Unknown | + + + | Phone | Unavailable | + + + Support + + + + + | Name | Relationship | Address | Phone | + + + + + | Jeni Shirley | ECON | [place]A | | | | | [place] [address] | | + + + + + Care Team Providers + +------+ + | Care Hospital Staff Pharmacist Name | Role | Phone | + [...] Description | +--------+--------+ + + + | 11/24/ | Refill | [facility] | Eladio Lynch, | Refill Request | | 2005 | | Medicine at [facility] | [address] | | | | | [address] [facility] | [place], [place] | | | | | [address] | [address] | | | | | Mailcode: [address] | [phone] | | | | | [address] | | | | | | [place], [place] | | | | | | [address] | | | | | | [phone] | | | +--------+--------+ + + + [...]
--- OUTSIDE RECORDS SUMMARY | ~2020-02-24 | XMS | Encounter Summary ---
Demographics + + + | Address | [address] [place] [address] Ln | | | [place] [address] | + + + | Home Phone | | + + + | Preferred Language | Unknown | + + + | Marital Status | | + + + | Moravian Affiliation | LINDSAY | + + + | Race | White | + + + | Ethnic Group | Not or | + + + Author + + + | Author | [facility] | + + + | Organization | [facility] | + + + | Address | Unknown | + + + | Phone | Unavailable | + + + Support + + + + + | Name | Relationship | Address | Phone | + + + + + | Jeni Shirley | ECON | UA | | | | | [place] [address] | | + + + + + Care Team Providers + +------+ + | Care Professor Of Theater Name | Role | Phone | + [...] Description | +--------+--------+ + + + | 10/26/ | Refill | [facility] | Eladio Lynch, | Refill Request | | 2005 | | Medicine at [facility] | [address] | | | | | [place] [facility] | [place], [place] | | | | | [address] | [address] | | | | | Mailcode: [address] | [phone] | | | | | [address] | | | | | | [place], [place] | | | | | | [address] | | | | | | [phone] | | | +--------+--------+ + + + [...]
--- OUTSIDE RECORDS SUMMARY | ~2020-02-24 | XMS | Encounter Summary ---
Demographics + + + | Address | [address] [place] [address] Ln | | | [place] [address] | + + + | Home Phone | | + + + | Preferred Language | Unknown | + + + | Marital Status | | + + + | Rastafari Affiliation | LINDSAY | + + + | Race | White | + + + | Ethnic Group | Not or | + + + Author + + + | Author | [facility] | + + + | Organization | [facility] | + + + | Address | Unknown | + + + | Phone | Unavailable | + + + Support + + + + + | Name | Relationship | Address | Phone | + + + + + | Jeni Shirley | ECON | UA | | | | | [place] [address] | | + + + + + Care Team Providers + +------+ + | Care Chief Of Surgery Name | Role | Phone | + +------+ + | Eladio Lynch MD | PCP | | + +------+ + Encounter Details +--------+ + + + + | Date | Type | Department | Care Team | Description | +--------+ + + + + | 11/04/ | Office | General Internal | Note, Outpatient | Progress Note | | 1997 | Visit-Trans | Medicine [address] | Clinic | | | | jessica | Lizzy Sharp | | | | | | Mailcode: [id number] | | | | | | Outpatient Clinic | | | | | | [facility], [address] | | | | | | [place], [place] | | | | | | [address] | | | | | | [phone] | | | +--------+ + + + [...] as of this encounter Progress Notes Interface, Herb Doctor In - 09/02/2006 5:06 AM PST CLINIC DATE: 11/04/97 [facility] DATE OF : 42. SUBJECTIVE: Ms. Toth is here for follow up of her diabetes. She was last seen in clinic on 10/21/97, at which time her sugars were in the 200's and she was started on Glucophage 500 mg po bid. She comes back in with her Accu check booklet today and her sugars have much improved with the fastings between 154 and 177 and postprandial 123 to 223. Ms. Toth was also having some difficulty with some chronic cough. She felt that this was related to her smoking cessation, which had been successful with for approximately one week when we last saw her. She was given an Azmacort inhaler to help improve her symptoms. Since then she has had almost complete cessation of her cough and feels much improved. She is now one month without smoking and continues on the Wellbutrin. She feels very cheerful about the success. PHYSICAL EXAM: VITAL SIGNS: Weight 140, blood pressure 114/72, pulse 104, respirations 22, CBG 130, fasting. HEENT: Clear. NECK: Supple with no adenopathy. LUNGS: Clear to auscultation. CARDIOVASCULAR: Regular rate and rhythm, no murmurs, gallops or rubs. ASSESSMENT: 57-year-old female with 1. Diabetes, under better control. We will increase her Glucophage to 500 mg po tid and reassess in six weeks. She was told that if her sugars drop below 90 for greater than two checks, she should drop back down to bid dosing. 2. Asthma. The patient is doing well now on prn albuterol. We encouraged her smoking cessation and recommended continuing the Wellbutrin. Minerva Cannon M.D. Resident, Obstetrics and Gynecology Eladio Lynch M.D. Guide Dog Trainer, Family Medicine EM/andrew documented in this encounter Plan of Treatment Not on filedocumented as of this encounter Visit Diagnoses Not on filedocumented in this encounter"
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
--- OUTSIDE RECORDS SUMMARY | ~2020-02-24 | XMS | Encounter Summary ---
Demographics + + + | Address | [id number] [place] [address] Ln | | | [place] [address] | + + + | Home Phone | | + + + | Preferred Language | Unknown | + + + | Marital Status | | + + + | Sabianism Affiliation | LINDSAY | + + + [...] | [place] | | | | | [place] [address] | | + + + + + Care Team Providers + +------+ + | Care Manager Pacu Name | Role | Phone | + +------+ + PCP | Unavailable | + +------+ + Encounter Details +--------+ + + + + | Date | Type | Department | Care Team | Description | +--------+ + + + + | 06/05/ | Results | | Other, Faculty | | | 1997 | Only | | [phone] | | +--------+ + + + + [...] | + +--------+ + + + | X-RAY CHEST 2 VIEW | Routin | 08/03/1998 | | Results for this | | | e | 10:10 AM | | procedure are in the | | | | PST | | results section. | + +--------+ + + + | X-RAY CHEST 2 VIEW | Routin | 07/16/1998 | | Results for this | | | e | 1:02 PM | | procedure are in the | | | | PST | | results section. | + +--------+ + + + | X-RAY CHEST 2 VIEW | Urgent | 07/10/1998 | | Results for this | | | | 8:08 AM | | procedure are in the | | | | PST | | results section. | + +--------+ + + + | X-RAY CHEST 2 VIEW | Routin | 07/09/1998 | | Results for this | | | e | 2:05 PM | | procedure are in the | | | | PST | | results section. | + +--------+ + + + | CHEST, 1 VIEW, | Urgent | 07/06/1998 | | Results for this | | PORTABLE | | 12:05 PM | | procedure are in the | | | | PST | | results section. | + +--------+ + + + | X-RAY CHEST 2 VIEW | Routin | 07/01/1998 | | Results for this | | | e | 1:50 PM | | procedure are in the | | | | PST | | results section. | + +--------+ + + + | NM BONE &/OR JOINT | Routin | 06/09/1998 | | Results for this | | IMAGING WHOLE BODY | e | 1:21 PM | | procedure are in the | | | | PST | | results section. | + +--------+ + + + | VASCULAR FLOW STUDY | Routin | 06/09/1998 | | Results for this | | | e | 10:39 AM | | procedure are in the | | | | PST | | results section. | + +--------+ + + + | CT CHEST W/ LIVER | Routin | 06/05/1998 | | Results for this | | SURVEY | e | 1:50 PM | | procedure are in the | | | | PST | | results section. | + +--------+ + + + documented in this encounter Results CHEST 2 VIEW (08/03/1998 10:10 AM PST) + + + + + + | Component | Value | Ref Range | Performed | Pathologist | | | | | At | Signature | + + + + + + | CHEST, 2 | Radiologist 1: FERNY, | | | | | VIEWS OR | Le CAMARILLO-Radiologist | | | | | STEREO | 2: ZOIE KERR, | | | | | | M.D.PA AND LATERAL VIEWS | | | | | | OF THE CHEST: | | | | | | 08/03/98 at 1010 | | | | | | hours. Dictated: | | | | | | 08/05/98 COMPARISON: | | | | | | Comparison is made with | | | | | | prior study of 07/16/98. | | | | | | SUBJECTIVE: | | | | | | 47-year-old female. 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 FINDINGS: | | | | | | The patient is mildly | | | | | | rotated to the left. The | | | | | | heart size iswithin | | | | | | normal limits. The | | | | | | surgical clips in the | | | | | | right upper lobe | | | | | | areunchanged in | | | | | | configuration. The | | | | | | opacity along the medial | | | | | | aspect of theright | | | | | | hemithorax which | | | | | | continues inferiorly is | | | | | | unchanged. The | | | | | | lungsare clear. The | | | | | | regional skeleton is | | | | | | unchanged. IMPRESSION: | | | | | | Stable post-surgical | | | | | | changes. END OF | | | | | | IMPRESSION: | | | | + + + + + + + + | Specimen | + + | | + + + + + | Narrative | Performed At | + + + | Ordered by Teresa BARCLAY M.D. | | + + + + +---------+ + + | Performing | Address | City/State/Zipcode | Phone Number | | Organization | | | | + +---------+ + + | [facility] | | | | | RADIOLOGY | | | | + +---------+ + + CHEST 2 VIEW (07/16/1998 1:02 PM PST) + + + + + + | Component | Value | Ref Range | Performed | Pathologist | | | | | At | Signature | + + + + + + | CHEST, 2 | Radiologist 1: FERNY, | | | | | VIEWS [place] | Le CAMARILLO-Radiologist | | | | | STEREO | 2: MOI DAVILA V., | | | | | | LeCHEST 2 VIEWS: | | | | | | 07/16/98 at 1302 hours. | | | | | | Dictated: 07/17/98 | | | | | | COMPARISON: Comparison | | | | | | is made with prior study | | | | | | of 07/10/98. FINDINGS: | | | | | | Linear opacity persists | | | | | | at the right lung base. | | | | | | The lungvolumes are | | | | | | improved. There is a | | | | | | decrease in fluid seen | | | | | | at the rightlateral | | | | | | chest wall as well as | | | | | | subcutaneous emphysema. | | | | | | Thecardiomediastinal | | | | | | contours and hilar | | | | | | structures are | | | | | | unchanged. Clipsare seen | | | | | | in the right hilar | | | | | | region. There is a | | | | | | clearing of | | | | | | atelectasisat the left | | | | | | base. The regional | | | | | | skeleton is within | | | | | | normal limits. | | | | | | IMPRESSION: Improved | | | | | | appearance of the chest | | | | | | with a decrease in the | | | | | | right lateralpleural | | | | | | fluid and resolution of | | | | | | the left basilar | | | | | | atelectasis. | | | | | | Rightbasilar atelectasis | | | | | | persists. There is no | | | | | | pneumothorax. END OF | | | | | | IMPRESSION: | | | | + + + + + + + + | Specimen | + + | | + + + + + | Narrative | Performed At | + + + | Ordered by Teresa BARCLAY M.D. | | + + + + +---------+ + + | Performing | Address | City/State/Zipcode | Phone Number | | Organization | | | | + +---------+ + + | [facility] DEPARTMENT OF | | | | | RADIOLOGY | | | | + +---------+ + + CHEST 2 VIEW (07/10/1998 8:08 AM PST) + + + + + + | Component | Value | Ref Range | Performed | Pathologist | | | | | At | Signature | + + + + + + | CHEST, 2 | Radiologist 1: BERNIE | | | | | ANURADHA [place] | Samantha MCKEON | | | | | RED | MSocorro-Radiologist 2: | | | | | | Samantha GIBBS, | | | | | | M.D.PA AND LATERAL VIEWS | | | | | | OF THE CHEST: | | | | | | 07/10/98 Dictated: | | | | | | 07/12/98 COMPARISON: | | | | | | Comparison is made with | | | | | | prior study of 07/09/98. | | | | | | FINDINGS: The lung | | | | | | volumes remain low. | | | | | | Both right chest tubes | | | | | | havebeen removed. | | | | | | Bibasilar atelectasis | | | | | | is again seen with right | | | | | | chestpleural | | | | | | thickening. No new | | | | | | infiltrates are | | | | | | identified. IMPRESSION: | | | | | | No pneumothorax, status | | | | | | post removal of two | | | | | | chest tubes. | | | | | | Persistentatelectasis | | | | | | and right pleural | | | | | | thickening. END OF | | | | | | IMPRESSION: | | | | + + + + + + + + | Specimen | + + | | + + + + + | Narrative | Performed At | + + + | Ordered by FRANCHESCA VALENCIA | | + + + + +---------+ + + | Performing | Address | City/State/Zipcode | Phone Number | | Organization | | | | + +---------+ + + | [facility] | | | | | RADIOLOGY | | | | + +---------+ + + CHEST 2 VIEW (07/09/1998 2:05 PM PST) + + + + + + | Component | Value | Ref Range | Performed | Pathologist | | | | | At | Signature | + + + + + + | CHEST, 2 | Radiologist 1: FERNY, | | | | | VIEWS [place] | Le CAMARILLOCHEST TWO | | | | | STEREO | VIEWS: 07/09/98 at 1405 | | | | | | hours. Dictated: | | | | | | 07/10/98 COMPARISON: | | | | | | Comparison is made with | | | | | | prior study of 07/06/98. | | | | | | FINDINGS: There is a | | | | | | small right apical | | | | | | pneumothorax. Two | | | | | | right chesttubes remain | | | | | | in place. There is no | | | | | | pulmonary edema. There | | | | | | is minimalbibasilar | | | | | | atelectasis. There is | | | | | | no pleural effusion. | | | | | | IMPRESSION: Small right | | | | | | apical pneumothorax. | | | | | | END OF IMPRESSION: | | | | + + + + + + + + | Specimen | + + | | + + + + + | Narrative | Performed At | + + + | Ordered by HERIBERTO PAEZ | | + + + + +---------+ + + | Performing | Address | City/State/Zipcode | Phone Number | | Organization | | | | + +---------+ + + | [facility] DEPARTMENT OF | | | | | RADIOLOGY | | | | + +---------+ + + CHEST, 1 VIEW, PORTABLE (07/06/1998 12:05 PM PST) + + + + + + | Component | Value | Ref Range | Performed | Pathologist | | | | | At | Signature | + + + + + + | CHEST, 1 | Radiologist 1: FERNY, | | | | | GAVIN, | Le CAMARILLOPORTABLE | | | | | PORTABLE | CHEST: 07/06/98 at | | | | | | 1205 hours. | | | | | | Dictated: 07/10/98 | | | | | | COMPARISON: Comparison | | | | | | is made with prior study | | | | | | of 07/01/98. FINDINGS: | | | | | | Status post right | | | | | | thoracotomy with | | | | | | placement of two | | | | | | rightchest tubes. | | | | | | There is subcutaneous | | | | | | emphysema. There is | | | | | | nopneumothorax. There | | | | | | is minimal right basilar | | | | | | atelectasis. The | | | | | | leftlung is clear. | | | | | | IMPRESSION: Status post | | | | | | right lower lobectomy. | | | | | | No pneumothorax. END | | | | | | OF IMPRESSION: | | | | + + + + + + + + | Specimen | + + | | + + + + + | Narrative | Performed At | + + + | Ordered by Teresa BARCLAY M.D. | | + + + + +---------+ + + | Performing | Address | City/State/Zipcode | Phone Number | | Organization | | | | + +---------+ + + | [facility] DEPARTMENT OF | | | | | RADIOLOGY | | | | + +---------+ + + CHEST 2 VIEW (07/01/1998 1:50 PM PST) + + + + + + | Component | Value | Ref Range | Performed | Pathologist | | | | | At | Signature | + + + + + + | CHEST, 2 | Radiologist 1: CAIO, | | | | | VIEWS [place] | Le FRANCISCOCHEST TWO | | | | | STEREO | VIEWS: 07/01/98 | | | | | | Dictated: 07/02/98 | | | | | | FINDINGS: This patient, | | | | | | by computerized | | | | | | tomography has a lung | | | | | | nodule,which I can not | | | | | | identify on this study. | | | | | | Heart, mediastinum, | | | | | | andremaining visualized | | | | | | structures appear | | | | | | normal. IMPRESSION: | | | | | | Negative chest. END OF | | | | | | IMPRESSION: | | | | | | | | | | + + + + + + + + | Specimen | + + | | + + + + + | Narrative | Performed At | + + + | Ordered by Teresa BARCLAY M.D. | | + + + + +---------+ + + | Performing | Address | City/State/Zipcode | Phone Number | | Organization | | | | + +---------+ + + | [facility] DEPARTMENT OF | | | | | RADIOLOGY | | | | + +---------+ + + NM BONE IMG WHOLE BODY (06/09/1998 1:21 PM PST) + + + + + + | Component | Value | Ref Range | Performed | Pathologist | | | | | At | Signature | + + + + + + | NM BONE IMG | Radiologist 1: PHILIP | | | | | WHOLE BODY | ELMO | | | | | | LeRADIONUCLIDE BONE | | | | | | SCAN: 06/09/98 at 1321 | | | | | | hours. Dictated | | | | | | 06/09/98 CLINICAL | | | | | | HISTORY: Lung cancer. | | | | | | Examination is | | | | | | requested to evaluatefor | | | | | | extent of bony | | | | | | metastases. PROCEDURE: | | | | | | Whole body blood pool | | | | | | image, followed by a two | | | | | | hour wholebody bone | | | | | | scan, was performed | | | | | | following the | | | | | | intravenous | | | | | | administrationof 25.2 | | | | | | mCU of 99m technetium | | | | | | HDP. FINDINGS: There are | | | | | | no abnormal foci of | | | | | | uptake on the blood | | | | | | poolimages. On the | | | | | | delayed images of the | | | | | | skeleton, there are | | | | | | several areas ofuptake. | | | | | | There is uptake in the | | | | | | lower cervical spine, at | | | | | | approximately C5 or | | | | | | C6on the right, in the | | | | | | upper thoracic spine, at | | | | | | approximately T2 or | | | | | | T3on the right, and | | | | | | centrally at | | | | | | approximately T5 or T6. | | | | | | These areasmay | | | | | | represent foci of | | | | | | metastatic disease. | | | | | | Alternatively, the | | | | | | couldsimply be areas of | | | | | | degenerative change. | | | | | | The patient does not | | | | | | appearto be symptomatic | | | | | | at these sites. | | | | | | However, if further | | | | | | evaluation ofthese areas | | | | | | is needed, it is | | | | | | recommended that | | | | | | magnetic | | | | | | resonanceimaging study | | | | | | of the cervical and | | | | | | upper thoracic spine be | | | | | | performed. There is | | | | | | uptake consistent with a | | | | | | prior known LS spine | | | | | | fusion in thelower | | | | | | lumbar spine. There is | | | | | | asymmetry to the | | | | | | sacroiliac | | | | | | joints,consistent with | | | | | | prior history of bone | | | | | | graft harvest from the | | | | | | leftiliac wing. There is | | | | | | uptake consistent with | | | | | | history of recent trauma | | | | | | in the rightlower | | | | | | extremity. There is | | | | | | uptake in the ankle | | | | | | joint, which may | | | | | | beeither secondary to | | | | | | degenerative changes, or | | | | | | to the patients | | | | | | recenttrauma. Uptake | | | | | | in the fourth and fifth | | | | | | toes is consistent with | | | | | | knownrecent fractures. | | | | | | IMPRESSION: There is | | | | | | uptake consistent with | | | | | | prior LS spine fusion | | | | | | and trauma tothe right | | | | | | lower extremity. | | | | | | However, there is also | | | | | | uptake in the | | | | | | lowercervical spine, | | | | | | upper and mid-thoracic | | | | | | spine. These areas | | | | | | mayrepresent | | | | | | degenerative change. | | | | | | However, metastatic | | | | | | lesions to theseareas | | | | | | could not be excluded. | | | | | | If definitive | | | | | | confirmation is | | | | | | required,an magnetic | | | | | | resonance imaging study | | | | | | is suggested. END OF | | | | | | IMPRESSION: | | | | + + + + + + + + | Specimen | + + | | + + + + + | Narrative | Performed At | + + + | Ordered shweta MUÑOZ M.D. | | + + + + +---------+ + + | Performing | Address | City/State/Zipcode | Phone Number | | Organization | | | | + +---------+ + + | [facility] DEPARTMENT OF | | | | | RADIOLOGY | | | | + +---------+ + + VASCULAR FLOW STUDY (06/09/1998 10:39 AM PST) + + + + + + | Component | Value | Ref Range | Performed | Pathologist | | | | | At | Signature | + + + + + + | VASCULAR | Radiologist 1: PHILIP, | | | | | BONE FLOW | ELMO | | | | | | M.DFatumaRADIONUCLIDE BONE | | | | | | SCAN: 06/09/98 at 1321 | | | | | | hours. Dictated | | | | | | 06/09/98 CLINICAL | | | | | | HISTORY: Lung cancer. | | | | | | Examination is | | | | | | requested to evaluatefor | | | | | | extent of bony | | | | | | metastases. PROCEDURE: | | | | | | Whole body blood pool | | | | | | image, followed by a two | | | | | | hour wholebody bone | | | | | | scan, was performed | | | | | | following the | | | | | | intravenous | | | | | | administrationof 25.2 | | | | | | mCU of 99m technetium | | | | | | HDP. FINDINGS: There are | | | | | | no abnormal foci of | | | | | | uptake on the blood | | | | | | poolimages. On the | | | | | | delayed images of the | | | | | | skeleton, there are | | | | | | several areas ofuptake. | | | | | | There is uptake in the | | | | | | lower cervical spine, at | | | | | | approximately C5 or | | | | | | C6on the right, in the | | | | | | upper thoracic spine, at | | | | | | approximately T2 or | | | | | | T3on the right, and | | | | | | centrally at | | | | | | approximately T5 or T6. | | | | | | These areasmay | | | | | | represent foci of | | | | | | metastatic disease. | | | | | | Alternatively, the | | | | | | couldsimply be areas of | | | | | | degenerative change. | | | | | | The patient does not | | | | | | appearto be symptomatic | | | | | | at these sites. | | | | | | However, if further | | | | | | evaluation ofthese areas | | | | | | is needed, it is | | | | | | recommended that | | | | | | magnetic | | | | | | resonanceimaging study | | | | | | of the cervical and | | | | | | upper thoracic spine be | | | | | | performed. There is | | | | | | uptake consistent with a | | | | | | prior known LS spine | | | | | | fusion in thelower | | | | | | lumbar spine. There is | | | | | | asymmetry to the | | | | | | sacroiliac | | | | | | joints,consistent with | | | | | | prior history of bone | | | | | | graft harvest from the | | | | | | leftiliac wing. There is | | | | | | uptake consistent with | | | | | | history of recent trauma | | | | | | in the rightlower | | | | | | extremity. There is | | | | | | uptake in the ankle | | | | | | joint, which may | | | | | | beeither secondary to | | | | | | degenerative changes, or | | | | | | to the patients | | | | | | recenttrauma. Uptake | | | | | | in the fourth and fifth | | | | | | toes is consistent with | | | | | | knownrecent fractures. | | | | | | IMPRESSION: There is | | | | | | uptake consistent with | | | | | | prior LS spine fusion | | | | | | and trauma tothe right | | | | | | lower extremity. | | | | | | However, there is also | | | | | | uptake in the | | | | | | lowercervical spine, | | | | | | upper and mid-thoracic | | | | | | spine. These areas | | | | | | mayrepresent | | | | | | degenerative change. | | | | | | However, metastatic | | | | | | lesions to theseareas | | | | | | could not be excluded. | | | | | | If definitive | | | | | | confirmation is | | | | | | required,an magnetic | | | | | | resonance imaging study | | | | | | is suggested. END OF | | | | | | IMPRESSION: | | | | + + + + + + + + | Specimen | + + | | + + + + + | Narrative | Performed At | + + + | Ordered by AKI MÑUOZ M.D. | | + + + + +---------+ + + | Performing | Address | City/State/Zipcode | Phone Number | | Organization | | | | + +---------+ + + | [facility] DEPARTMENT OF | | | | | RADIOLOGY | | | | + +---------+ + + CT CHEST W/ LIVER SURVEY (06/05/1998 1:50 PM PST) + + + + + + | Component | Value | Ref Range | Performed | Pathologist | | | | | At | Signature | + + + + + + | CT CHEST W/ | Radiologist 1: FERNY | | | | | LIVER | Le CAMARILLO-Radiologist | | | | | SURVEY | 2: CRIS | | | | | | KAROL | | | | | | LeCOMPUTERIZED | | | | | | TOMOGRAPHY OF THE CHEST: | | | | | | 06/05/98 Dictated | | | | | | 06/05/98 COMPARISON: No | | | | | | prior studies are | | | | | | available for | | | | | | comparison. CLINICAL | | | | | | HISTORY: Evaluate lung | | | | | | cancer. PROCEDURE: The | | | | | | patient received | | | | | | intravenous Omnipaque | | | | | | with contiguous7 mm | | | | | | axial images from the | | | | | | apices through the | | | | | | liver. FINDINGS: A 2 cm | | | | | | spiculated nodule is | | | | | | present in the posterior | | | | | | basalsegment of the | | | | | | right lower lobe without | | | | | | calcifications. No | | | | | | otherpulmonary nodules | | | | | | or areas of | | | | | | consolidation are seen. | | | | | | A lesion issituated | | | | | | peripherally, | | | | | | approximately 2 cm from | | | | | | the posterior | | | | | | pleuralsurface. There | | | | | | are no enlarged hilar or | | | | | | mediastinal lymph | | | | | | nodesidentified. The | | | | | | liver is diffusely low | | | | | | in attenuation, | | | | | | consistent with | | | | | | thepresence of fat. No | | | | | | focal lesions are seen. | | | | | | The adrenal glands | | | | | | appearnormal. No | | | | | | adenopathy is seen in | | | | | | the abdomen. | | | | | | IMPRESSION: 2 cm nodule | | | | | | in the posterior basal | | | | | | segment of the right | | | | | | lower lobeconsistent | | | | | | with lung cancer without | | | | | | evidence of adenopathy | | | | | | ormetastatic disease. | | | | | | END OF IMPRESSION: | | | | + + + + + + + + | Specimen | + + | | + + + + + | Narrative | Performed At | + + + | Ordered by AKI MUÑOZ M.D. | | + + + + +---------+ + + | Performing | Address | City/State/Zipcode | Phone Number | | Organization | | | | + +---------+ + + | [facility] OF | | | | | RADIOLOGY | | | | + +---------+ + + documented in this encounter Visit Diagnoses Not on filedocumented in this encounter"
--- OUTSIDE RECORDS SUMMARY | ~2020-02-24 | XMS | Encounter Summary ---
Demographics + + + | Address | [id number] [place] [address] Ln | | | [place] [address] | + + + | Home Phone | | + + + | Preferred Language | Unknown | + + + | Marital Status | | + + + | Hinduism Affiliation | LINDSAY | + + + [...] | | | | | [place] [address] | | + + + + + Care Team Providers + +------+ + | Care Personal Service Representative Name | Role | Phone | + +------+ + PCP | Unavailable | + +------+ + Encounter Details +--------+ + + + + | Date | Type | Department | Care Team | Description | +--------+ + + + + | 08/08/ | Office | [facility] | Note, [...] as of this encounter Progress Notes 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 Toth is here for a refill of her chronic pain medications as well as discussion concerning her other problems includin. Diabetes. 2. Reactive airway disease. Allergies: INTOLERANCE TO NSAIDS. Other medications include Soma 1 p.o. t.i.d., hydrocodone 7.5/750 one p.o. t.i.d., hydroxyzine, glipizide 10 mg two p.o. b.i.d., Atrovent, Claritin p.r.n., furosemide 20 mg daily, Zantac 150 mg b.i.d., and metformin 850 t.i.d. Objective General: She is in no apparent distress. She is alert and oriented x 4. Vital signs: Blood pressure 146/70, pulse 88, respirations 16, and weight 167 pounds. CBG 115. HEENT: The sclerae are white. Oral mucosa is moist. Neck: Supple with no adenopathy. Neurological: She is ambulating without assistance. She is alert and oriented x 4 and seems to be in no apparent distress. Her affect is pleasant. Assessment: Chronic pain. Plan: Refill medications x 1 month and follow up at that point. Eladio Lynch M.D. [facility] / [id number] / [id number] / [id number] / Tdocumented in this encounter Plan of Treatment Not on filedocumented as of this encounter Visit Diagnoses Not on filedocumented in this encounter"
--- OUTSIDE RECORDS SUMMARY | ~2020-02-24 | XMS | Encounter Summary ---
Demographics + + + | Address | [address] [place] [address] Ln | | | [place] [address] | + + + | Home Phone | | + + + | Preferred Language | Unknown | + + + | Marital Status | | + + + | Baptist Affiliation | LINDSAY | + + + | Race | White | + + + | Ethnic Group | Not or | + + + Author + + + | Author | [facility] | + + + | Organization | [facility] | + + + | Address | Unknown | + + + | Phone | Unavailable | + + + Support + + + + + | Name | Relationship | Address | Phone | + + + + + | Jeni Shirley | ECON | [facility] | | | | | [place] [address] | | + + + + + Care Team Providers + +------+ + | Care Diesel Pile Driver Operator Name | Role | Phone | [...] Description | +--------+--------+ + + + | 08/05/ | Refill | [facility] | Eladio Lynch, | Refill Request | | 2004 | | Medicine at [facility] | [address] | | | | | [place] [address] [facility] | [place], [place] | | | | | [address] | [address] | | | | | Mailcode: MINDY [address]barran | [phone] | | | | | [address] | | | | | | [place], [place] | | | | | | [address] | | | | | | [phone] | | | +--------+--------+ + + + [...]
--- OUTSIDE RECORDS SUMMARY | ~2020-02-24 | XMS | Encounter Summary ---
Demographics + + + | Address | [address] [place] [address] Ln | | | [place] [address] | + + + | Home Phone | | + + + | Preferred Language | Unknown | + + + | Marital Status | | + + + | Orthodoxy Affiliation | LINDSAY | + + + | Race | White | + + + | Ethnic Group | Not or | + + + Author + + + | Author | [facility] | + + + | Organization | [facility] | + + + | Address | Unknown | + + + | Phone | Unavailable | + + + Support + + + + + | Name | Relationship | Address | Phone | + + + + + | Jeni Shirley | ECON | [facility] | | | | | [place] [address] | | + + + + + Care Team Providers + +------+ + | Care Motor Man Name | Role | Phone | + +------+ + | Unknown | PCP | Unavailable | + +------+ + Reason for Visit + + + | Reason | Comments | + + + | Letter Encounter To | | | Patient | | + + + Encounter Details +--------+ + + + + | Date | Type | Department | Care Team | Description | +--------+ + + + + | 07/13/ | Telephone | [facility] | Eladio Lynch, | Letter Encounter To | | 2008 | | at [facility] | MD [address] | Patient | | | | [address] | [place], [place] | | | | | [facility] | [address] | | | | | and Healing, | [phone] | | | | | | | | | | | Floor [place], [place] | | | | | | [address] | | | | | | [phone] | | | +--------+ + + + [...]
--- OUTSIDE RECORDS SUMMARY | ~2020-02-24 | XMS | Encounter Summary ---
Demographics + + + | Address | [address] [place] [address] Ln | | | [place] [address] | + + + | Home Phone | | + + + | Preferred Language | Unknown | + + + | Marital Status | | + + + | Jainism Affiliation | LINDSAY | + + + [...] | | | | | [place] [address] | | + + + + + Care Team Providers + +------+ + | Care Turnstile Collector Name | Role | Phone | + [...] documented as of this encounter Progress Notes Rafa, Coin Box Inspector In - 08/13/2006 5:12 AM PSTCLINIC DATE: 06/16/1998 CLINIC NOTE - [facility] SUBJECTIVE: Martha Toth is here after being seen by surgical oncology with a treatment plan that includes a lobectomy for a single nodular-appearing nonsmall-cell carcinoma. Apparently, surgery is scheduled on 07/06/98. She seems to be doing well with the news so far. Statistical information given to her has been positive. She has appropriate appointments with radiation oncology and oncology services to discuss therapeutic options postsurgically. We will see her back as needed, and plan to visit her during her hospital stay. Eladio Lynch M.D. Music Promoter, [facility] ROSIE:ankit d ocumented in this encounter Plan of Treatment Not on filedocumented as of this encounter Visit Diagnoses Not on filedocumented in this encounter"
--- OUTSIDE RECORDS SUMMARY | ~2020-02-24 | XMS | Encounter Summary ---
Demographics + + + | Address | [address] [place] [address] Ln | | | [place] [address] | + + + | Home Phone | | + + + | Preferred Language | Unknown | + + + | Marital Status | | + + + | Restorationist Affiliation | LINDSAY | + + + [...] | | | | | [place] [address] | | + + + + + Care Team Providers + +------+ + | Care Smoking Pipe Repairer Name | Role | Phone | + [...] as of this encounter Progress Notes Interface, Overhauler Bus Truck In - 01/28/2006 3:12 AM PDTCLINIC DATE: 03/14/2003 [facility] CHIEF COMPLAINT: Swelling,(?) infection of the right foot. HISTORY OF PRESENT ILLNESS: Martha is a middle-aged diabetic woman who has peripheral vascular disease. Approximately 5 days ago, she believes she may been bitten by spider or other insect. The next day she had a very sudden onset of dramatic swelling, pain, and tenderness in her right foot. She was in [place] at that time on a trip with [...] MD Eladio Hahn M.D. MICHAEL / KIMBERLEY [id number] / [id number] / [id number] / Tdocumented in this encounter Plan of Treatment Not on filedocumented as of this encounter Visit Diagnoses Not on filedocumented in this encounter"
--- OUTSIDE RECORDS SUMMARY | ~2020-02-24 | XMS | Encounter Summary ---
Demographics + + + | Address | [address] | | | [place] [address] | + + + | Home Phone | | + + + | Preferred Language | Unknown | + + + | Marital Status | | + + + | Latter Day Affiliation | 1041 | + + + | Race | Unknown | + + + | Ethnic Group | Unknown | + + + Author + + + | Author | [facility] | | | and [place] | + + + | Organization | [facility] | | | and [place] [...] Team Providers + +------+ + | Care Report Clerk Name | Role | Phone | + +------+ + | Krista Alvarez | PCP | | | [place] | | | + +------+ + Reason for Visit + + + | Reason | Comments | + + + | Bronchitis | chronic bronchitis consult | + + + Evaluate & Treat (Routine) +--------+--------+ + + + + | Status | Reason | Specialty | Diagnoses / | Referred By | Referred To | | | | | Procedures | Contact | Contact | +--------+--------+ + + + + | Closed | | Pulmonary | Diagnoses | Kim, | [place], | | | | Disease / | Obstructive | Krista | Lety Lynch, | | | | Pulmonology | chronic | KIAH Isabel | MD [address] | | | | | bronchitis | [address] | | | | | with acute | Olga Lidia Betancur | [place], | | | | | bronchitis | [place], | [place] [address] | | | | | ([facility]) | [place] | | | | | | Procedures | [address] | | | | | | [place] OFFICE | Phone: | | | | | | OUTPATIENT | [phone] | | | | | | NEW 60 | Fax: | | | | | | MINUTES | [phone] | | +--------+--------+ + + + + Encounter Details +--------+---------+ + + + | Date | Type | Department | Care Team | Description | +--------+---------+ + + + | 12/19/ | Office | [facility] | [place], | COPD (chronic | | 2014 | Visit | PULMONARY [address] | Lety Lynch MD | obstructive | | | | [place], | | pulmonary disease) | | | | [place] [address] | | (HCC); History of | | | | [phone] | | lung cancer; Snoring | +--------+---------+ + + + Social History + + + +--------+ + | Tobacco Use | Types | Packs/Day | Years | Date | | | | | Used | | + + + +--------+ + | Former Smoker | Cigarettes | 0.5 | 60 | Quit: 10/19/2014 | + + + +--------+ + + + +---------+ + | Alcohol Use | Drinks/Week | oz/Week | Comments | + + +---------+ + | Yes | | | rare, 1-3/year | + + +---------+ + + + [...] + + + | Blood Pressure | 112/60 | 12/19/2014 2:29 PM | | | | | PDT | | + + + + + | Pulse | 76 | 12/19/2014 2:29 PM | | | | | PDT | | + + + + + | Temperature | - | - | | + + + + + | Respiratory Rate | 14 | 12/19/2014 2:29 PM | | | | | PDT | | + + + + + | Oxygen Saturation | 96% | 12/19/2014 2:29 PM | room air | | | | PDT | | + + + + + | Inhaled Oxygen | - | - | | | Concentration | | | | + + + + + | Weight | 63.9 kg (140 lb 12.8 | 12/19/2014 2:29 PM | | | | oz) | PDT | | + + + + + | Height | 154.9 cm (5' 1") | 12/19/2014 2:29 PM | | | | | PDT | | + + + + + | Body Mass Index | 26.6 | 12/19/2014 2:29 PM | | | | | PDT | | + + + + + documented in this encounter Patient Instructions Patient Instructions Lety Gallego MD - 12/19/2014 3:50 PM PDTCan you get a print out from [facility] to confirm which pneumonia vaccine you got, or have them fax the informa tion to it? Stop Flovent. Start Symbicort 160 mcg dose, 2 puffs inhaled twice daily, 12 hours apart. Rinse your mouth after using. Continue to use ProAir as needed, or albuterol nebulizer as needed. Continue Singulair once daily. Do not put Vicks in your nose. If your nose gets plugged, use a Herrera Med Sinus Rinse Kit (a vailable over the counter). Do sleep paperwork today and we will discuss at next visit. documented in this encounter Progress Notes Lety Gallego MD - 12/19/2014 2:12 PM PDTFormatting of this note might be differe nt from the original. Pulmonary Consult Referring Provider: Krista Edmondson* HPI Martha Toth is a 74 y.o. female patient of Krista Edmondson here today for evaluation of COPD. She notes that she first started having troubles with their breathing in childhood, when jose dowling was diagnosed with asthma. She notes she smoked most of her life, though she quit during h er pregnancies, and for up to 10 years, but would always resume smoking. She has now quit fo r 2 months. Over the years, her breathing has occasionally gotten worse, as when she catches a cold, it will get bad, and if she overexerts herself her breathing is hard. She notes that she does not have too many episodes where she catches a cold and her breathing gets bad. She has had one cold since she was in [place] (end of ), and she was hospitalized with bronchitis last August (2013). Currently they are able to walk 3/4 mile at their own pace on level ground. The distance wa lked is predominately limited by low back pain. One year ago, they feel that they could walk about the same distance. She does not exercise regularly. She does housework to stay active . She has done physical therapy quite a few times before. She went quite frequently after he r back surgeries. She does not cough chronically, at least since she quit smoking. They have not had hemoptys is. Triggers for their shortness of breath include viral illnesses, and exertion (especially wa lking fast). Relieving factors include resting, and using her inhalers or nebulizer. She takes allergy pills twice daily (Benadryl), which have controlled her allergies pretty well. Treatments that they have tried to this point include Qvar, Flovent, Singulair, ProAir, alb uterol nebulizers, Advair, Symbicort, Proventil, Ventolin and Atrovent. Currently they are o n Flovent 220 mcg 2 inhalations twice daily, montelukast 10mg daily and albuterol as needed. She is not certain that her current inhalers help her breathing that much. She felt like th e Combivent helped a lot when she tried this. Currently they are using their rescue inhaler, ProAir, 3 times a day. She has not had to use her nebulizer machine in a couple of weeks n ow. She remembers the Advair working really well for her. She has been evaluated for nocturnal oxygen and does not need to use it. She was on it when she lived in [facility] ([phone] feet elevation), but is not on it since moving to [facility]. Past Medical History Past Medical History Diagnosis Date Depression DM type 2 (diabetes mellitus, type 2) ([facility]) Lung cancer ([facility]) 1996 s/p lobectomy on right, early stage Cataract COPD (chronic obstructive pulmonary disease) ([facility]) [place] (myocardial infarction) ([facility]) 2010 x 3, [place] CKD (chronic kidney disease) CHF (congestive heart failure) ([facility]) Childhood asthma Hyperlipidemia GERD (gastroesophageal reflux disease) Ruptured lumbar disc 10/1979 Past Surgical History Past Surgical History Procedure Laterality Date Lumbar discectomy 1979 Lumbar fusion 1981 L2-3 grafted pelvic bone to disc [Other] Lung removal, partial 1996 right Puncture aspiration abscess 2013 Colonoscopy Family History: Family History Problem Relation Age of Onset Lung cancer Father Pacemaker Mother Arthritis Mother PTSD Brother Other (See Comment) Brother GSW from [place] Schizophrenia Brother Social History: History Social History Marital Status: Spouse Name: N/A Number of Children: N/A Years of Education: N/A 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 Social History Main Topics Smoking status: Former Smoker -- 0.50 packs/day for 60 years Types: Cigarettes Quit date: 10/19/2014 Smokeless tobacco: None Alcohol Use: Yes Comment: rare, 1-3/year Drug Use: No Sexual Activity: None Other Topics Concern None Social History Narrative Lives: in [place] With: her son Grew up: [place], [place] Has previously lived in: [place], [place], [place], [place], [place] Exposure to toxic chemicals: no Exposure to asbestos: yes, school and home Exposure to tuberculosis: no Has had a PPD or Quantiferon before: yes, in school and in [place], both negative Has pets at home: 4 cats and 3 dogs Has ever owned birds: yes, 4-5 years ago, was told by her doctor to get rid of them as "th ey were too much for her lungs" Other animal exposures: no Hobbies: homemaking Allergies: Allergies Allergen Reactions Penicillins Medications: Outpatient Encounter Prescriptions as of 12/19/2014 Medication Sig Dispense Refill albuterol (PROAIR HFA) 90 mcg/puff inhaler Inhale 2 puffs into the lungs every 6 hours as needed for Wheezing. ALPRAZolam (XANAX) 0.25 mg tablet Take 0.25 mg by mouth 3 times daily as needed for Anx iety. [DISCONTINUED] beclomethasone (QVAR) 80 mcg/puff inhaler Inhale 1 puff into the lungs 2 times daily. [DISCONTINUED] buPROPion (WELLBUTRIN SR) 150 mg 12 hr tablet Take 150 mg by mouth 2 bety es daily. [DISCONTINUED] cefUROXime (CEFTIN) 500 MG tablet Take 500 mg by mouth 2 times daily. Dextromethorphan HBr (BENYLIN ADULT FORMULA PO) Take by mouth 2 times daily. diphenhydrAMINE (BENADRYL) 25 mg tablet Take 25 mg by mouth 2 times daily. FLUoxetine (PROZAC) 20 mg capsule Take 20 mg by mouth Daily. fluticasone (FLOVENT HFA) 220 mcg/puff inhaler Inhale 2 puffs into the lungs 2 times da jennifer. [DISCONTINUED] Fluticasone Propionate, Inhal, (FLOVENT IN) Inhale into the lungs 2 bety es daily. FUROSEMIDE PO Take 20 mg by mouth Daily. HYDROcodone-acetaminophen (NORCO) 10-325 mg per tablet Take 1 tablet by mouth every 6 h ours as needed for Pain. METFORMIN HCL PO Take by mouth 2 times daily. methocarbamol (ROBAXIN) 750 mg tablet Take 750 mg by mouth 4 times daily. MONTELUKAST SODIUM PO Take 10 mg by mouth nightly. OMEPRAZOLE PO Take by mouth Daily. simvastatin (ZOCOR) 20 mg tablet Take 20 mg by mouth nightly. triamcinolone (KENALOG) 0.1% cream Apply topically as needed. Facility-Administered Encounter Medications as of 12/19/2014 Medication Dose Route Frequency Provider Last Rate Last Dose [COMPLETED] albuterol 2.5 mg/3 mL nebulizer solution 2.5 mg 2.5 mg Nebulization RT Onc e Lety Gallego MD 2.5 mg at 12/19/14 1345 Review of Systems: General: []Weight loss/gain (over 10 lbs) []Fever/chills/sweats []Night sweats Hematologic: [x]Bleeding/bruising tendencies [x]History of blood transfusion [x]Anemia []Enlarged lymph nodes EENT: [x]Hearing loss [x]Vision loss/change []Sinus congestion/nasal drainage []Nosebleeds []Hoarseness Cardiac: []Chest pain []Palpitations/heart racing [x]Swelling of legs/ankles []Waking up at night short of breath [x]Difficulty sleeping flat Gastrointestinal: []Nausea/vomiting []Difficulty swallowing [x]Heartburn/acid reflux []Loss of appetite []Ab dominal pain Musculoskeletal: [x]Joint stiffness/swelling [x]Joint pain [x]Back pain []Arthritis []Gout Urologic: []Blood in urine []Frequent urination at night []Burning/painful urination []Difficulty wit h urination Neurological: [x]Headaches []Seizures [x]Memory loss or confusion [x]Numbness or tingling in feet or hand s Psychiatric: []Depression []Anxiety/panic attacks []Suicidal ideation Sleep: [x]Difficulty falling asleep [x]Waking up at night frequently [x]Snoring [x]Stop breathin g in their sleep [x]Fall asleep frequently, or excessively tired Objective BP 112/60 | Pulse 76 | Resp 14 | Ht 1.549 m (5' 1") | Wt 63.866 kg (140 lb 12.8 oz) | BMI 2 6.62 kg/m2 | SpO2 96% General Appearance: Alert, cooperative, no distress, appears stated age Head: Normocephalic, without obvious abnormality, atraumatic Eyes: PERRL, conjunctiva clear, no scleral icterus, EOM's intact Ears: Normal TM's, external auditory canals, diminished acuity Nose: Nares normal, septum midline, mucosa edematous with yellow mucous Mouth: No oral lesions or exudate Neck: Supple, symmetrical, no adenopathy Lungs: No accessory muscle use, breath sounds are slightly diminished bilaterally with pr olongation of the expiratory phase, no wheezes, crackles or rhonchi Chest Wall: No deformity Heart: Regular rate and rhythm, faint systolic murmur, no rub or gallop Abdomen: Soft, non-tender, non-distended Extremities: No cyanosis, clubbing, 1+ bilateral pedal edema Pulses: Radial pulses 2+ and symmetric Skin: Warm and dry Lymph nodes: Cervical and supraclavicular nodes normal Data: Chest x-ray done September 02, 2014 was reviewed and interpreted in clinic today. It shows hy perinflation consistent with obstructive disease, and right sided scarring with surgical cli ps consistent with known history of prior lobectomy. Pulmonary function tests were performed prior to clinic today and were reviewed and interpr eted in clinic today. They show moderate obstructive disease on spirometry without signific ant response to inhaled bronchodilator, mild reduction in FVC consistent with mild restricti ve physiology, and a moderately reduced diffusion capacity. Echocardiogram was performed on December 28, 2013 and results were reviewed in clinic today. It shows diastolic dysfunction and some mild aortic valve atherosclerosis. Overnight oximetry was done on October 13, 2014 on room air and was reviewed and interpreted i n clinic today. It shows she spent 3 minutes 24 seconds with a saturation less than 88%. Labs: 03/17/14 CBC normal x WBC 12.7 CMP normal x Cr 1.01 Krista Edmondson's notes were reviewed in clinic today. Immunization History Administered Date(s) Administered INFLUENZA, UNSPECIFIED FORMULATION 06/21/2014 PNEUMOCOCCAL, UNSPECIFIED FORMULATION 05/21/2014 Assessment 1. COPD (chronic obstructive pulmonary disease) (HCC) - Moderate in severity. Also has back ground history of asthma, though currently has no bronchodilator responsiveness, nor charact eristic asthma symptoms. Symptoms are improved on Flovent, but still using her ProAir 3 time s daily. She felt like Advair previously worked better for her. With her insurance, Symbicor t is likely covered, and in the same class of medications, so we will start this. She is up to date on vaccinations, and does not require oxygen based on repeat testing alla more was reviewed with her. 2. History of lung cancer - Recent chest x-ray shows right sided scar and surgical clips, c onsistent with prior right sided lobectomy, which likely explains her mild restrictive physi ology. 3. Snoring- She reports her daughter has told her she snores, stops breathing in her sleep, and she has chronic insomnia (though a lot of this may well be behavioral), and is often fa tigued. I asked her to fill out sleep questionnaire and we will review at her next visit and discuss a sleep study as well. Plan 1.Stop Flovent. 2.Start Symbicort 160 mcg 2 puffs inhaled twice daily. 3.Continue ProAir and albuterol nebulizers as needed. 4. Fill out sleep paperwork today. 5. Continue Singulair once daily. 6. Confirm which pneumonia vaccine she got at [facility], or have them fax us the info. She was advised to call if new pulmonary symptoms were to develop. Return to clinic in 8 weeks, or sooner with concerns. CC: Krista Edmondson NP Portions of this report were transcribed using voice recognition software. Every effort wa s made to ensure accuracy; however, inadvertent computerized pasta maker errors may be pre sent. documented in t his encounter Plan of Treatment Not on filedocumented as of this encounter Visit Diagnoses + + | Diagnosis | + + | COPD (chronic obstructive pulmonary disease) (HCC) Chronic airway obstruction, not | | elsewhere classified | + + | History of lung cancer Personal history of malignant neoplasm of bronchus and lung | + + | Snoring Other dyspnea and respiratory abnormality | + + documented in this encounter
--- OUTSIDE RECORDS SUMMARY | ~2020-02-24 | XMS | Encounter Summary ---
Demographics + + + | Address | [id number] [place] [address] Ln | | | [place] [address] | + + + | Home Phone | | + + + | Preferred Language | Unknown | + + + | Marital Status | | + + + | Catholic Affiliation | LINDSAY | + + + [...] | | | | | [place] [address] | | + + + + + Care Team Providers + +------+ + | Care Tack Maker Name | Role | Phone | + +------+ + | Eladio Lynch MD | PCP | | + +------+ + Encounter Details +--------+ + + + + | Date | Type | Department | Care Team | Description | +--------+ + + + + | 05/27/ | Office | [facility] | Note, Family | Progress Note | | 2001 | Visit-Trans | PRACTICE | Practice Clinic [...] as of this encounter Progress Notes Interface, Rotary Saw Operator In - 03/14/2006 1:05 AM PDTCLINIC DATE: 05/27/2002 [facility] SUBJECTIVE: A 61-year-old female presents for followup of chronic pain primarily musculoskeletal and back pain. She is currently on a medication agreement for Vicodin 5/500 four tablets daily and Soma 3 times daily. ADDITIONAL MEDICATIONS 1. Metformin 850 mg t.i.d. 2. Glipizide 20 mg b.i.d. 3. Albuterol MDI. 4. Atrovent MDI. 5. Flovent 110 MDI. 6. Nasonex. 7. Amitriptyline 100 to 150 mg q.h.s. 8. Zantac 150 mg b.i.d. 9. Avandia 4 mg daily. 10. Zoloft 100 mg daily. 11. Claritin 10 mg daily. Ms. Toth has no new medical issues. Her last hemoglobin A1c was good and improved. OBJECTIVE VITAL SIGNS: Blood pressure 140/78, pulse 92, respirations 20, and weight 158 pounds. GENERAL: She is alert and oriented x 4, breathing clearly and speaking in full sentences. EXTREMITIES: Feet are intact with no ulcerations or fungus present. ASSESSMENT: Chronic pain. PLAN: Refill medications x 1 month with 1 refill. Followup in 2 months. At that point in time, we will draw fasting laboratories for routine diabetes evaluation including a fasting lipid panel, hemoglobin A1c, complete metabolic panel, and urine spot microalbumin. Eladio Lynch M.D. ROSIE / KIMBERLEY [id number] / [id number] / [id number] / Tdocumented in this encounter Plan of Treatment Not on filedocumented as of this encounter Visit Diagnoses Not on filedocumented in this encounter"
--- OUTSIDE RECORDS SUMMARY | ~2020-02-24 | XMS | Encounter Summary ---
Demographics + + + | Address | [address] [place] [address] Ln | | | [place] [address] | + + + | Home Phone [...] | | | | | [place] [address] | | + + + + + Care Team Providers + +------+ + | Care Wire Saw Operator Name | Role | Phone | + +------+ + | Eladio Lynch MD | PCP | | + +------+ + Encounter Details +--------+ + + + + | Date | Type | Department | Care Team | Description | +--------+ + + + + | 05/30/ | Office | [facility] | Note, [...] as of this encounter Progress Notes Interface, Feed Grinder In - 06/08/2005 5:03 AM PST [id number] [facility] Clinic Date: 05/30/2005 Clinic: [facility] Subjective: Ms. Toth is here for a followup of musculoskeletal pain, spinal and hip related. She is status post surgery in 1979 and 1983, and has been on opioid analgesia since. 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 Her medications are available on [employer] and [employer]. She is here today for refill of Vicodin 1 p.o. t.i.d. #90 with 1 refill and Soma 1 p.o. t.i.d. #90 with 1 refill which were done today. Physical Examination: Vital Signs: Stable. General: No apparent distress otherwise on exam. We will provide a flu vaccination today as well. Eladio Lynch M.D. ROSIE / KIMBERLEY [id number] / [id number] / [id number] / Electronically signed by Eladio Lynch 06-07-2005 10:18:38 AM docukevin i n this encounter Plan of Treatment Not on filedocumented as of this encounter Visit Diagnoses Not on filedocumented in this encounter"
--- OUTSIDE RECORDS SUMMARY | ~2020-02-24 | XMS | Encounter Summary ---
Demographics + + + | Address | [address] [place] [address] Ln | | | [place] [address] | + + + | Home Phone | | + + + | Preferred Language | Unknown | + + + | Marital Status | | + + + | Jew Affiliation | LINDSAY | + + + [...] | | | | | [place] [address] | | + + + + + Care Team Providers + +------+ + | Care It Quality Analyst Name | Role | Phone | + [...] as of this encounter Progress Notes Interface, Die Attacher In - 03/06/2005 8:09 AM PDT [id number] TARI CALDWELL Clinic Date: 04/02/2004 [facility] Subjective: Ms. Toth is here today to [...] tendon reflexes are intact and symmetric. Assessment: Kjq-louulfo-fjescxwsz diabetes mellitus. Plan: Baseline laboratories, syringes, 1 type strips, weaned off metformin, continued work on routine exercise, and monitor glycemic control. Eladio Lynch M.D. ROSIE / KIMBERLEY [id number] / [id number] / [id number] / documented i n this encounter Plan of Treatment Not on filedocumented as of this encounter Visit Diagnoses Not on filedocumented in this encounter"
--- OUTSIDE RECORDS SUMMARY | ~2020-02-24 | XMS | Encounter Summary ---
Demographics + + + | Address | [address] [place] [address] Ln | | | [place] [address] | + + + | Home Phone [...] | | | | | [place] [address] | | + + + + + Care Team Providers + +------+ + | Care Legal Consultant Name | Role | Phone | + +------+ + | Eladio Lynch MD | PCP | | + +------+ + Encounter Details +--------+ + + + + | Date | Type | Department | Care Team | Description | +--------+ + + + + | 01/24/ | Results | [facility] | Eladio Lynch, | | | 1999 | Only | Medicine at [facility] | [address] | | | | | [place] | [place], [place] | | | | | [address] | [address] | | | | | Mailcode: MINDY Albarran | [phone] | | | | | [address] | | | | | | [place], [place] | | | | | | [address] | | | | | | [phone] | | | +--------+ + + + [...] + + | MICROALBUMIN/CREATIN | Routin | 01/25/2000 | | Results for this | | INE RATIO (RANDOM | e | 11:19 AM | | procedure are in the | | URINE) | | PDT | | results section. | + +--------+ + + + | HEMOGLOBIN A1C, | Routin | 01/25/2000 | | Results for this | | BLOOD | e | 11:19 AM | | procedure are in the | | | | PDT | | results section. | + +--------+ + + + documented in this encounter Results MICROALBUMIN/CREATININE RATIO (RANDOM URINE) (01/25/2000 11:19 AM PDT) + + + + + + | Component | Value | Ref Range | Performed | Pathologist | | | | | At | Signature | + + + + + + | MICROALBUMI | < 3.0 | <20.1 mg/L | | | | N, | | | | | | URINE-RANDO | | | | | | M | | | | | + + + + + + | URINE | 14.7 | mg/dL | | | | CREATININE [...] + + + | [facility] | [address] | [place] [address] | | | LABORATORY | | | | + + + + + HEMOGLOBIN A1C (01/25/2000 11:19 AM PDT) + +---------+ + + + | Component | Value | Ref Range | Performed | Pathologist | | | | | At | Signature | + +---------+ + + + | HEMOGLOBIN | 7.4 (H) | <7.1 % | | | | A1C | | | | | + +---------+ + + + + + | Specimen | + + | | + + + + + | Narrative | Performed At | + + + | Non-Diabetic 4.0 - 5.9% | | | Level of Control Excellent | | | Less than 7% Good | | | 7.0 - 8.0 Fair | | | 8.1 - 9.5 Poor | | | Greater than 9.5% | | + + + + + + + + | Performing | Address | City/State/Zipcode | Phone Number | | Organization | | | | + + + + + | [facility] | [address] | [place] [address] | | | LABORATORY | | | | + + + + + documented in this encounter Visit Diagnoses Not on filedocumented in this encounter"
--- OUTSIDE RECORDS SUMMARY | ~2020-02-24 | XMS | Encounter Summary ---
Demographics + + + | Address | [address] [place] [address] Ln | | | [place] [address] | + + + | Home Phone | | + + + | Preferred Language | Unknown | + + + | Marital Status | | + + + | Caodaism Affiliation | LINDSAY | + + + [...] | | | | | [place] [address] | | + + + + + Care Team Providers + +------+ + | Care Weather Teacher Name | Role | Phone | + +------+ + | Unknown | PCP | Unavailable | + +------+ + Encounter Details +--------+ + + + + | Date | Type | Department | Care Team | Description | +--------+ + + + + | 09/05/ | Results | LAB [facility] [address] | Maddie [address] | | | 1997 | Only | [address] | [phone] | | | | | [place] | | | | | | [address] | | | | | | [phone] | | | +--------+ + + + [...] | + +--------+ + + + | ARCHIVE CYTOLOGY | Routin | 09/05/1997 | | Results for this | | | e | | | procedure are in the | | | | | | results section. | + +--------+ + + + | SURGICAL PATHOLOGY | Routin | 09/05/1997 | | Results for this | | | e | | | procedure are in the | | | | | | results section. | + +--------+ + + + documented in this encounter Results SURGICAL PATHOLOGY (09/05/1997) + + + + + + | Component | Value | Ref Range | Performed | Pathologist | | | | | At | Signature | + + + + + + | SURGICAL | SOURCE OF SPECIMEN: SEE | | [facility] | | | PATHOLOGY | RESULTS | | DEPARTMENT | | | | Preliminary | | OF | | | | History:CLINICAL HISTORY | | PATHOLOGY | | | | Patient Age: 57 | | | | | | year old woman. LMP: | | | | | | Post menopausal ten | | | | | | years | | | | | | | | | | | | Hormonal Therapy: None | | | | | | Patient History: | | | | | | Bleeding (x 3) with | | | | | | cramping. The clinician | | | | | | wishes torule out | | | | | | endocervical curettage. | | | | | | GROSS DESCRIPTION | | | | | | Specimens | | | | | | received: One in | | | | | | formalin #1 | | | | | | PIPELLE OF UTERUS: The | | | | | | specimen consists of | | | | | | three fragments of alexis | | | | | | topink soft tissue | | | | | | measuring approximately | | | | | | 0.5 x 0.4 x 0.4 cm. in | | | | | | greatestdimension. The | | | | | | specimen is wrapped and | | | | | | submitted in toto in a | | | | | | singlecassette. | | | | | | All tissue sections | | | | | | taken are submitted for | | | | | | microscopic | | | | | | evaluation.SP/dj | | | | | | FINAL DIAGNOSIS#1 | | | | | | PIPELLE OF UTERUS: | | | | | | DISCONTINUOUS | | | | | | FRAGMENTS OF | | | | | | ENDOCERVICAL GLANDS AND | | | | | | SQUAMOUS EPITHELIUM | | | | | | WITH NO DIAGNOSTIC | | | | | | ABNORMALITY Case | | | | | | reviewed by: Nirali | | | | | | MS Fawad IIICase | | | | | | staffed by: Mariaa | | | | | | Le AlcazarT:09/09/97:dj | | | | | | My electronic | | | | | | signature indicates that | | | | | | I have personally | | | | | | reviewed alldiagnostic | | | | | | slides, the gross and/or | | | | | | microscopic portion of | | | | | | thisreport and | | | | | | formulated the final | | | | | | diagnosis. | | | | + + + + + + + + | Specimen | + + | Other | + + + + + + + | Performing | Address | City/State/Zipcode | Phone Number | | Organization | | | | + + + + + | [facility] | [address] | [place] [address] | | | PATHOLOGY | [address] | | | + + + + + ARCHIVE CYTOLOGY (09/05/1997) + + + + + + | Component | Value | Ref Range | Performed | Pathologist | | | | | At | Signature | + + + + + + | ARCHIVE | SOURCE OF SPECIMEN: SEE | | [facility] | | | CYTOLOGY | RESULTS | | DEPARTMENT | | | | Preliminary | | OF | | | | History:GYNECOLOGIC | | PATHOLOGY | | | | CYTOLOGY CLINICAL | | | | | | HISTORY: Source of | | | | | | material: Cervix and | | | | | | vagina Number of | | | | | | Slides:1Reason for | | | | | | examination: RoutineLast | | | | | | Menstrual Period: | | | | | | postmenopausal 10 | | | | | | yrsPrevious Diagnoses | | | | | | and/or Therapy: Within | | | | | | normal limits | | | | | | FINAL DIAGNOSIS I. | | | | | | SPECIMEN | | | | | | ADEQUACY:Satisfactory | | | | | | for evaluation II. | | | | | | GENERAL | | | | | | CATEGORIZATION:Within | | | | | | Normal Limits III. | | | | | | HORMONAL | | | | | | EVALUATION:Hormonal | | | | | | pattern incompatible | | | | | | with age and history | | | | | | Case screened by: | | | | | | Lavinia Fonseca C.T.s: | | | | | | 09.08.97. My | | | | | | electronic signature | | | | | | indicates that I have | | | | | | personally reviewed | | | | | | alldiagnostic slides, | | | | | | the gross and/or | | | | | | microscopic portion of | | | | | | thisreport and | | | | | | formulated the final | | | | | | diagnosis. | | | | + + + + + + + + | Specimen | + + | Other | + + + + + + + | Performing | Address | City/State/Zipcode | Phone Number | | Organization | | | | + + + + + | [facility] | [address] | [place] [address] | | | PATHOLOGY | [address] | | | + + + + + documented in this encounter Visit Diagnoses Not on filedocumented in this encounter"
--- OUTSIDE RECORDS SUMMARY | ~2020-02-24 | XMS | Encounter Summary ---
Demographics + + + | Address | [address] [place] [address] Ln | | | [place] [address] | + + + | Home Phone [...] | | | | | [place] [address] | | + + + + + Care Team Providers + +------+ + | Care Wax Coating Machine Tender Name | Role | Phone | + +------+ + | Eladio Lynch MD | PCP | | + +------+ + Encounter Details +--------+ + + + + | Date | Type | Department | Care Team | Description | +--------+ + + + + | 03/25/ | Office | [facility] | Note, [...] as of this encounter Progress Notes Interface, Popped Corn Oven Attendant In - 03/28/2006 3:02 AM PDTCLINIC DATE: 03/25/2002 [facility] SUBJECTIVE: Ms. Toth is here today for refill of her controlled medications for chronic back pain. Her problem list also includes 1. NIDDM. 2. Reactive airway disease. 3. Hemorrhoids. 4. History of lung malignancy with right lobectomy. 5. Tobacco use, most recent discontinuation in July 2001. ALLERGIES: INTOLERANCE TO NSAIDS. MEDICATION LIST 1. Metformin 850 mg t.i.d. 2. Glipizide 10 mg 2 p.o. b.i.d. 3. Avandia 4 mg daily. 4. Zantac 150 b.i.d. 5. Lasix 40 mg p.r.n. increased edema. 6. Amitriptyline 50 mg 2-3 q.h.s. 7. Nasonex. 8. Flovent. 9. Atrovent. 10. Albuterol. 11. Robaxin as need for muscle spasm. 12. Soma 1 p.o. t.i.d. for muscle spasm. 13. Vicodin 5/500 one p.o. q.i.d. The patient has no new concerns at this point in time. She does not bring her glycemic records with her today, although she does clearly state the Avandia has been helpful. REVIEW OF SYSTEMS: Positive for shortness of breath and costochondral chest pain. Positive for headaches. Positive for stress, anxiety, and insomnia. SOCIAL HISTORY: Remarkable for her daughter who is in a respite care psychiatric institution currently with complicated marital strife and family dysfunction. OBJECTIVE GENERAL: She is in no apparent distress. She is alert and oriented x 4. VITAL SIGNS: Blood pressure is 122/60, pulse is 100, respirations are 20, CBG is 179, and weight is 154. LUNGS: Clear to auscultation. CARDIAC: Regular rate and rhythm. EXTREMITIES: Without edema. ASSESSMENT: Chronic pain syndrome. PLAN: Refill Vicodin 5/500 one p.o. q.i.d. and Soma 1 p.o. t.i.d. with 1 refill each. I will see her in 2 months. Eladio Lynch M.D. ROSIE / KIMBERLEY [id number] / [id number] / [id number] / Tdocumented in this encounter Plan of Treatment Not on filedocumented as of this encounter Visit Diagnoses Not on filedocumented in this encounter"
--- OUTSIDE RECORDS SUMMARY | ~2020-02-24 | XMS | Encounter Summary ---
Demographics + + + | Address | [address] [place] [address] Ln | | | [place] [address] | + + + | Home Phone [...] | | | | | [place] [address] | | + + + + + Care Team Providers + +------+ + | Care Sap Pp Consultant Name | Role | Phone | [...] Request | | 2013 | | at [facility] [place] | MD [address] | | | | | [address] | [place], [place] | | | | | [facility] | [address] | | | | | and Healing, | [phone] | | | | | Building | | | | | | Floor [facility] [place] | | | | | | [address] | | | | | | [phone] | | | +--------+--------+ + + + [...]
--- OUTSIDE RECORDS SUMMARY | ~2020-02-24 | XMS | Encounter Summary ---
Demographics + + + | Address | [address] [place] [address] Ln | | | [place] [address] | + + + | Home Phone [...] | | | | | [place] [address] | | + + + + + Care Team Providers + +------+ + | Care Principal Solutions Architect Name | Role | Phone | + +------+ + | Eladio Lynch MD | PCP | | + +------+ + Encounter Details +--------+ + + + + | Date | Type | Department | Care Team | Description | +--------+ + + + + | 11/19/ | Office | [facility] | Note, Outpatient | Progress Note | | 2001 | Visit-Trans | MEDICINE | Clinic | [...] as of this encounter Progress Notes Interface, Watch Guard Gate In - 04/14/2006 1:05 AM PDTCLINIC DATE: 11/19/2001 [facility] SUBJECTIVE: Ms. Toth is here for followup on chronic back pain which is continuing. She generally uses Vicodin 5/500 one p.o. q.i.d. and Soma 1 p.o. t.i.d. for her back pain. Her problem list also includes reactive airway disease, seasonal allergic rhinitis, depression, gastroesophageal reflux disease, and adult-onset diabetes mellitus. OBJECTIVE: GENERAL: She is in no apparent distress. She is alert and oriented x 4. VITAL SIGNS: Blood pressure 144/68, pulse 102, weight 154.2, and CBG fasting is 85. BACK: Tender to palpation over multiple trigger point zones. She has full range of motion despite tenderness. ASSESSMENT: Chronic pain. PLAN: Refill medications x 1 month with 1 refill, have her follow up in 2 months for diabetic exam and visit. Eladio Lynch M.D. ROSIE / KIMBERLEY [id number] / [id number] / [id number] / Tdocumented in this encounter Plan of Treatment Not on filedocumented as of this encounter Visit Diagnoses Not on filedocumented in this encounter"
--- OUTSIDE RECORDS SUMMARY | ~2020-02-24 | XMS | Encounter Summary ---
Demographics + + + | Address | [address] [place] [address] Ln | | | [place] [address] | + + + | Home Phone | | + + + | Preferred Language | Unknown | + + + | Marital Status | | + + + | Christianity Affiliation | LINDSAY | + + + | Race | White | + + + | Ethnic Group | Not or | + + + Author + + + | Author | [facility] | + + + | Organization | [facility] | + + + | Address | Unknown | + + + | Phone | Unavailable | + + + Support + + + + + | Name | Relationship | Address | Phone | + + + + + | Jeni Shirley | ECON | [facility] | | | | | [place] [address] | | + + + + + Care Team Providers + +------+ + | Care Diversity Intern Name | Role | Phone | + [...] Request | | 2005 | | at [facility] [place] 2[place] | MD [address] | | | | | [address] | [facility] [place] | | | | | [facility] | [address] | | | | | and Healing, | [phone] | | | | | Building | | | | | | Floor [facility] [place] | | | | | | [address] | | | | | | [phone] | | | +--------+--------+ + + + [...]
--- OUTSIDE RECORDS SUMMARY | ~2020-02-24 | XMS | Encounter Summary ---
Demographics + + + | Address | [address] [place] [address] Ln | | | [place] [address] | + + + | Home Phone | | + + + | Preferred Language | Unknown | + + + | Marital Status | | + + + | Bahai Affiliation | LINDSAY | + + + | Race | White | + + + | Ethnic Group | Not or | + + + Author + + + | Author | [facility] | + + + | Organization | [facility] | + + + | Address | Unknown | + + + | Phone | Unavailable | + + + Support + + + + + | Name | Relationship | Address | Phone | + + + + + | Jeni Shirley | ECON | [facility] | | | | | [place] [address] | | + + + + + Care Team Providers + +------+ + | Care Senior Financial Reporting Analyst Name | Role | Phone | [...] Description | +--------+--------+ + + + | 01/06/ | Refill | [facility] | Lynch, Eladio, | Refill Request | | 2007 | | at [facility] | MD [address] | | | | | [address] | [place], [place] | | | | | [facility] | [address] | | | | | and Healing, | [phone] | | | | | Building | | | | | | Floor [facility] [place] | | | | | | [address] | | | | | | [phone] | | | +--------+--------+ + + + [...] + | Diagnosis | + + | Depressive disorder, not elsewhere classified | + + documented in this encounter"
--- OUTSIDE RECORDS SUMMARY | ~2020-02-24 | XMS | Encounter Summary ---
Demographics + + + | Address | [address] | | | [place] [address] | + + + | Home Phone | | + + + | Preferred Language | Unknown | + + + | Marital Status | | + + + | Jehovah'S Witness Affiliation | [id number] | + + + | Race | Unknown | + + + | Ethnic Group | Unknown | + + + Author + + + | Author | [facility] | | | and [place] | + + + | Organization | [facility] | | | and Gordonana [...] Team Providers + +------+ + | Care Safety Inspector Name | Role | Phone | + +------+ + | Krista Alvarez | PCP | | | PA | | | + +------+ + Reason for Visit + + + | Reason | Comments | + + + | Back Pain | right leg pain, numbness, and weakness | + + + Evaluate & Treat (Routine) +--------+--------+ + + + + | Status | Reason | Specialty | Diagnoses / | Referred By | Referred To | | | | | Procedures | Contact | Contact | +--------+--------+ + + + + | Closed | | Physical | Diagnoses | Kim, | [place], | | | | Medicine and | | Krista | David Chen MD | | | | Rehabilitatio | Postlaminect | KAIH Isabel | [address] | | | | n | all | [address] | | | | | syndrome, | Olga Lidia Betancur | [place], [place] | | | | | not | Ml, | [address] Phone: | | | | | elsewhere | [place] | [phone] | | | | | classified | [address] | Fax: | | | | | | Phone: | [phone] | | | | | | [phone] | | | | | | | Fax: | | | | | | | [phone] | | +--------+--------+ + + + + Encounter Details +--------+---------+ + + + | Date | Type | Department | Care Team | Description | +--------+---------+ + + + | 07/24/ | Office | [facility] | [place], | Chronic bilateral | | 2018 | Visit | PHYSIATRY [address] | [address] | low back pain with | | | | [address] | [address] | right-sided sciatica | | | | A[facility], [place] | [place] [address] | (Primary Dx); DDD | | | | [address] | [phone] | (degenerative disc | | | | [phone] | | disease), lumbar | +--------+---------+ + + + Social History [...] + + + | Blood Pressure | 130/73 | 07/24/2018 1:02 PM | | | | | PST | | + + + + + | Pulse | 73 | 07/24/2018 1:02 PM | | | | | PST [...] Weight | 59 kg (130 lb) | 07/24/2018 1:02 PM | | | | | PST | | + + + + + | Height | 154.9 cm (5' 1") | 07/24/2018 1:02 PM | | | | | PST | | + + + + + | Body Mass Index | 24.56 | 07/24/2018 1:02 PM | | | | | PST | | + + + + + documented in this encounter Patient Instructions Patient Instructions Shania Johnston PA-C - 07/24/2018 1:00 PM PSTLumbar MRI Then we can discuss treatment options: steroid injections or surgery Gabapentin sent to pharmacy documented in this encounter Progress Notes Shania Johnston PA-C - 07/24/2018 1:00 PM PSTFormatting of this note might be differe nt from the original. Shania Johnston PA-C [address] [facility] [place] [address] [place], [place] [address] FAX: PHYSICAL MEDICINE AND REHABILITATION H&P CHIEF COMPLAINT: Chief Complaint Patient presents with Back Pain right leg pain, numbness, and weakness HISTORY OF PRESENT ILLNESS: The patient is a 77 y.o. female being seen today for complaint s of low back pain with radiation into the right leg that began after an on the job injury i n that resulted in a laminectomy at L5/S1. Since the symptoms began, she has noticed that symptoms have been worsening. She describes the pain as a numbing, sharp, throbbing and tingling feeling. She rates the pain as severe. Her symptoms worsen with walking, standing, bending twisting. Her symptoms improve with not molly at this time. The patient also describes leg symptoms that occur on right side. The leg symptoms account for greater than or equal to 75% of her symptoms. The leg symptoms are intermittent but da jennifer and the symptoms travels from the low back into the right leg following the L5 dermatome . The patient does describe numbness of the bilateral feet, on the top of the toes. She lyle s report weakness of the right leg. She does not have bowel and bladder dysfunction. She does not have saddle anesthesia. Treatments for these complaints have included physical therapy, massage therapy, chiropract ic therapy, acupuncture, TENS unit, traction, L5/S1 laminectomy in 1979, use of narcotics, N SAIDS, muscle relaxers, orthotics, brace, steroid injections in the way past. Patient's medications, allergies, past medical, surgical, social and family histories were reviewed and updated as appropriate. PAST MEDICAL HISTORY: Past Medical History: Diagnosis Date Cataract CHF (congestive heart failure) ([facility]) Childhood asthma Chronic pain CKD (chronic kidney disease) Continuous nicotine dependence COPD (chronic obstructive pulmonary disease) ([facility]) Depression DM type 2 (diabetes mellitus, type 2) ([facility]) GERD (gastroesophageal reflux disease) Hayfever Hyperlipidemia Lumbago Lumbar post-laminectomy syndrome Lung cancer ([facility]) 1996 s/p lobectomy on right, early stage DC (myocardial infarction) ([facility]) 2010 x3; [place] Opioid use, unspecified, uncomplicated Osteoporosis Persistent insomnia Polyneuropathy Radiculopathy Ruptured lumbar disc 10/1979 Tobacco use PAST SURGICAL HISTORY: Past Surgical History: Procedure Laterality Date COLONOSCOPY 2008 LUMBAR DISCECTOMY 1979 LUMBAR FUSION 1981 L2-3 grafted pelvic bone to disc LUMBAR LAMINECTOMY L5 LUNG REMOVAL, PARTIAL Right 1996 VENOUS DPLX OR VEIN MAPPING [facility] 2013 CURRENT MEDICATIONS: Current Outpatient Prescriptions Medication Sig Dispense Refill albuterol (VENTOLIN HFA) 90 mcg/puff inhaler Inhale 2 puffs into the lungs EVERY 4 TO 6 HOURS NEEDED. albuterol 2.5 mg/3 mL nebulizer solution Take 2.5 mg by nebulization every 2 hours. For wheezing or SOB aspirin 81 MG EC tablet Take 81 mg by mouth Daily. budesonide (PULMICORT FLEXHALER) 180 mcg/puff inhaler Inhale 2 puffs into the lungs 2 t imes daily. budesonide-formoterol (SYMBICORT) 160-4.5 mcg/puff inhaler Inhale 2 puffs into the lung s 2 times daily. 1 Inhaler 11 FLUoxetine (PROZAC) 40 MG capsule Take 40 mg by mouth Daily. fluticasone (FLONASE) 50 mcg/nasal spray 2 sprays by Each Nare route Daily. furosemide (LASIX) 40 mg tablet Take 40 mg by mouth every morning. HYDROcodone-acetaminophen (NORCO) 10-325 mg per tablet 1 tab po TID to QID prn metFORMIN (GLUCOPHAGE) 500 mg tablet 1 tab PO QAM and 2 tab PO QHS montelukast (SINGULAIR) 10 mg tablet Take 10 mg by mouth Daily. tiZANidine (ZANAFLEX) 4 mg tablet Take 4 mg by mouth every 8 hours as needed. triamcinolone (KENALOG) 0.1% cream Apply topically as needed. No current facility-administered medications for this visit. ALLERGIES: Allergies Allergen Reactions Bee Venom Lactose Hives Penicillins Hives Uncoded Nonscreenable Allergen Other (See Comments) Blood transfusions-Reaction not specified in outside medical records SOCIAL HISTORY: The patient reports that she has been smoking Cigarettes. She started smoking about 90 ye ars ago. She has a 30.00 pack-year smoking history. She has never used smokeless tobacco. Sh josey reports that she drinks alcohol. She reports that she does not use drugs. FAMILY HISTORY: Family History Problem Relation Age of Onset Lung cancer Father Pacemaker Mother Cardiac problems Arthritis Mother Stroke Mother No Known Problems Son No Known Problems Daughter No Known Problems Sister PTSD Brother Other (see comment) Brother GSW from [place] No Known Problems Brother Schizophrenia Brother No Known Problems Brother No Known Problems Daughter Brain cancer Maternal Grandmother Breast cancer Maternal Grandmother Cancer Maternal Grandmother Bone Cervical cancer Other Cancer Maternal Aunt REVIEW OF SYSTEMS: GENERALLY: No fever, chills, + night sweats, no weight gain, no weight loss, no anemia, + fatigue. EYES: + eye problems, no impaired sight, no eye glasses/contacts, no eye injury, no double vision, no transient blindness. EARS, NOSE, THROAT and MOUTH: No change in sense taste/smell, + hearing difficulty, +ringi ng in ears, no drainage from ears, no ear injury, no dizziness, no voice change, +difficulty swallowing, no snoring, no sleep apnea/CPAP, no sinus trouble, no dental work. NEUROMUSCULAR: No numbness/pain of arms, + numbness/pain of legs, + awake with numbness/pa in, + weakness, no muscle aching, + coordination difficulty, + change in walk, no head injur y, no neck injury, + back injury, no pain in neck, no pain in back, no stroke, no fainting s pells, no loss of consciousness, no tremor/shaking, no seizures, no headaches, no migraines, no memory loss, no speech difficulty, no confusion, no numbness of face. PSYCHIATRIC: + depression, +difficulty sleeping, no anxiety, no bipolar disorder. CARDIOVASCULAR/PULMONARY: + heart attack, + heart murmur, no fluttering heart, + shortness of breath, + cough, no Tuberculosis, + chest pain, + swelling ankles, no bloody coughing, + asthma, no COPD/emphysema. GASTROINTESTINAL: No bowel disease, no nausea/vomiting, no rectal bleeding/hemorroids, + c onstipation, no fecal/stool incontinence, no liver/gallbladder disease, no abdominal pain. KIDNEY DISEASE: + frequent urination, no painful/difficult with urination, no urinary incon tinence, no bladder problems, no impotence, no irregular period, no vaginal discharge. ENDOCRINE: + diabetes, no thyroid disease, + osteoporosis/osteopenia, no drainage from reinaldo sts. INTEGUMENTARY/SKIN: No lump in breasts, no skin disease or skin changes, no rash/itch. HEMATOLOGIC: No enlarged lymph nodes, no ease or unusual bleeding, +cancer. RHEUMATOLOGIC: + joint pain/arthritis, no Rheumatoid Arthritis PHYSICAL EXAMINATION: Vitals: 07/24/18 1302 BP: 130/73 Pulse: 73 PainSc: 8 PainLoc: Back Body mass index is 24.56 kg/m. GENERAL: The patient is well developed and well nourished. She does not appear uncomfortab le when seated. HEENT: HEAD/FACE: EYES: EARS: NASOPHARNYX: OROPHARNYX: Normocephalic and atraumatic. There are no areas of recent trauma. Normal sclerae without icterus. No drainage or tenderness. Clear without drainage. Clear without erythema. SKIN Limited skin exam shows no significant rashes or lesions. There are scars in the lumb ar region. CHEST: The patient is in no acute respiratory distress with unlabored respirations. HEART: There is not lower extremity edema. ABDOMEN: The patient is not overweight. NEUROLOGIC: The patient is awake, alert, and oriented to time, place, person. She follows simple and complex commands. Her speech is fluent. She comprehends speech well. She has no apparent deficits with short or shelter memory. She has appropriate fund of knowledge Cranial nerves 2-12 appear grossly intact. Sensory exam does not show diminished sensation to light touch in the lower extremities. MUSCULOSKELETAL There is no tenderness in the midline of the cervical or thoracic spine. T here is no major palpable deformity of the spine. Straight leg raise and slump-sit are positive on the right. Rafael's maneuver and impinge ment testing were negative for any groin pain. There was no tenderness to palpation over t he greater trochanters, there is tenderness to the sacral sulci. The patient localized the majority of the pain to the L4-S1 region. Lumbar facet loading was positive. Strength test ing showed 5/5 strength throughout the lower extremities. The patient was able to heel and toe walk without difficulty. There was no redness, effusion, warmth or joint line tendernes s in the knees or ankles. RADIOGRAPHIC REVIEW: The patient's imaging was reviewed in detail with the patient today during the visit. Lumb ar xray from 10/2017 shows lumbar disc disease with surgery at L5/S1, good alignment. ASSESSMENT: 1. Chronic bilateral low back pain with right-sided sciatica PLAN: 1. Lumbar MRI to assess for spinal stenosis and foraminal stenosis, possible adjacent segm ent disease at L4/L5, or continued disc herniation at L5/S1 with impingement at S1 nerves. 2. Medications have been reviewed at today's, we will start with gabapentin nightly to the n slowly taper up to TID. 3. After images we will determine if she is a candidate for lumbar epidural injection, fac et injections or surgery. ELECTRONICALLY SIGNED BY: Shania Johnston PA-C, 07/24/2018 CC: Len Alvarez documented in t his encounter Plan of Treatment Not on filedocumented as of this encounter Procedures + +--------+ + + + | Procedure Name | Priori | Date/Time | Associated Diagnosis | Comments | | | ty | | | | + +--------+ + + + | IMAGING REPORT - | | 08/16/2018 | | Results for this | | EXTERNAL SCAN | | 12:00 AM | | procedure are in the | | | | PST | | results section. | + +--------+ + + + documented in this encounter Results IMAGING REPORT - EXTERNAL SCAN (08/16/2018 12:00 AM PST) + + + | Narrative | Performed At | + + + | Ordered by an | | | unspecified provider. | | + + + documented in this encounter Visit Diagnoses + + | Diagnosis | + + | Chronic bilateral low back pain with right-sided sciatica - Primary | + + | DDD (degenerative disc disease), lumbar Degeneration of lumbar or lumbosacral | | intervertebral disc | + + documented in this encounter
--- OUTSIDE RECORDS SUMMARY | ~2020-02-24 | XMS | Encounter Summary ---
Demographics + + + | Address | [address] [place] [address] Ln | | | [place] [address] | + + + | Home Phone | | + + + | Preferred Language | Unknown | + + + | Marital Status | | + + + | Taoist Affiliation | LINDSAY | + + + | Race | White | + + + | Ethnic Group | Not or | + + + Author + + + | Author | [facility] | + + + | Organization | [facility] | + + + | Address | Unknown | + + + | Phone | Unavailable | + + + Support + + + + + | Name | Relationship | Address | Phone | + + + + + | Jeni Shirley | ECON | [place] | | | | | [place] [address] | | + + + + + Care Team Providers + +------+ + | Care Accounts Payable Associate Name | Role | Phone | + +------+ + | Eladio Lynch MD | PCP | | + +------+ + Reason for Visit + + + | Reason | Comments | + + + | Medication | | | management | | + + + Encounter Details +--------+ + + + + | Date | Type | Department | Care Team | Description | +--------+ + + + + | 07/17/ | Telephone | [facility] | Lynch, Eladio, | Medication | | 2006 | | at [facility] | MD [address] | management | | | | [address] | [place], [place] | | | | | [facility] | [address] | | | | | and Healing, | [phone] | | | | | [facility] | | | | | | Floor [facility] [place] | | | | | | [address] | | | | | | [phone] | | | +--------+ + + + [...]
--- OUTSIDE RECORDS SUMMARY | ~2020-02-24 | XMS | Encounter Summary ---
Demographics + + + | Address | [address] [place] [address] Ln | | | [place] [address] | + + + | Home Phone [...] | | | | | [place] [address] | | + + + + + Care Team Providers + +------+ + | Care Sanding Machine Tender Automatic Name | Role | Phone | + +------+ + | Eladio Lynch MD | PCP | | + +------+ + Reason for Visit + + + | Reason | Comments | + + + | DM - Diabetes | | | mellitus | | + + + Encounter Details +--------+ + + + + | Date | Type | Department | Care Team | Description | +--------+ + + + + | 02/21/ | Patient | [facility] | Lynch, Eladio, | DM - Diabetes | | 2013 | Outreach | at [facility] | MD [address] | mellitus | | | | [address] | [place], [place] | | | | | [facility] | [address] | | | | | and Healing, | [phone] | | | | | | | | | | | Floor [place], [place] | | | | | | [address] | | | | | | [phone] | | | +--------+ + + + [...]
--- OUTSIDE RECORDS SUMMARY | ~2020-02-24 | XMS | Encounter Summary ---
Demographics + + + | Address | [address] [place] [address] Ln | | | [place] [address] | + + + | Home Phone [...] | UA | | | | | [place] [address] | | + + + + + Care Team Providers + +------+ + | Care Subsurface Augmentee Elint Operator Name | Role | Phone | + +------+ + PCP | Unavailable | + +------+ + Encounter Details +--------+ + + + + | Date | Type | Department | Care Team | Description | +--------+ + + + + | 06/03/ | Office | [facility] | Note, [...] as of this encounter Progress Notes Interface, Weft Straightener In - 03/06/2005 9:00 AM PDT [id number] TARI CALDWELL Clinic Date: 06/03/2004 [facility] Chief Complaint: Screening flexible sigmoidoscopy. History of Present Illness: Ms. Toth is a 63-year-old female with a history of chronic back pain, RAD, and depression who presents for screening flexible sigmoidoscopy. She underwent clean out with GoLYTELY and enemas. The patient also has a history of diabetes mellitus, however, is not feeling hypoglycemic today. Blood sugar earlier today was 86. She denies any fevers or chills. No blood in her bowel movements or recent changes in her stools. Allergies: PENICILLIN GIVES HER HIVES AND RASH. Medications: Vicodin and Soma. Procedure Note: A PARQ was held, and the patient signed consent. The patient was placed in the left lateral supine position. Rectal exam: No abnormalities were felt, and flexible sigmoidoscope was inserted to 45 cm without any difficulties or patient's discomfort. No abnormal masses or polyps were seen. No biopsies were done. The patient had an adequate clean out. The patient tolerated the procedure well and was monitored for about 10 minutes after the procedure. We have given instructions to call or return for any concerning symptoms. The patient was given her monthly supply of Soma and Vicodin per her medication contract. The patient will follow up with Dr. Lynch in one months' time. Demetrice Carlisle M.D. Eladio Lynch M.D. / [place] [id number] / [id number] / [id number] / documented i n this encounter Plan of Treatment Not on filedocumented as of this encounter Visit Diagnoses Not on filedocumented in this encounter"
--- OUTSIDE RECORDS SUMMARY | ~2020-02-24 | XMS | Encounter Summary ---
Demographics + + + | Address | [address] [place] [address] Ln | | | [place] [address] | + + + | Home Phone [...] + + + | Author | [facility] | + + + | Organization | [facility] | + + + | Address | Unknown | + + + | Phone | Unavailable | + + + Support + + + + + | Name | Relationship | Address | Phone | + + + + + | Jeni Shirley | ECON | [facility] | | | | | [place] [address] | | + + + + + Care Team Providers + +------+ + | Care Processing Specialist Name | Role | Phone | + +------+ + | Eladio Lynch MD | PCP | | + +------+ + Encounter Details +--------+ + + + + | Date | Type | Department | Care Team | Description | +--------+ + + + + | 09/05/ | Office | General Internal | Note, Outpatient | Progress Note | | 1997 | Visit-Trans | Medicine [address] | Clinic | | | | jessica | Lizzy Sharp | | | | | | Mailcode: [id number] | | | | | | Outpatient Clinic | | | | | | [facility], [address] | | | | | [place], [place] | | | | | | [address] | | | | | | [phone] | | | +--------+ + + + [...] as of this encounter Progress Notes Interface, Pick Pulling Machine Operator In - 09/09/2006 1:05 AM [facility] DATE: 09/05/97 [facility] SUBJECTIVE: Date of is Fatuma Thomas is a 56-year-old female who presents for an annual examination with a history of non-insulin dependent diabetes mellitus, poorly-controlled, functional back pain with spasm, reactive airway disease, and internal hemorrhoids. She has complaints today that include gynecologic concerns. She is a 3, para 3, with no past abnormal history, and postmenopausal with a history of three episodes spread apart by more than one month of cramping, lower abdominal pain followed by discharge of dark, clotted blood from her vagina. This seems to happen while she is urinating, but she is unclear about whether it is urethral or vaginal in nature. She currently is not taking hormone replacement therapy. She is a smoker and is on 10 mg b.i.d. of Glucotrol. Additionally, she uses narcotics for her pain control and has contracted on those for no greater than three a day. She uses occasional Lasix for water retention. She has metered dose inhaled beta-agonists for her reactive airway disease. She has a mammogram planned in . She has no history of sexually transmitted diseases. OBJECTIVE: She is in no apparent distress. VITAL SIGNS: Blood pressure is 126/68. Pulse is 88. Respirations are 16. She is 5' 1 " tall and weighs 140 pounds. CARDIAC: Cardiac exam shows regular rate and rhythm with no murmurs, gallops or rubs. NECK: Her neck has no carotid bruits. LUNGS: Her lungs are clear to auscultation bilaterally. BREASTS: Her breast examination reveals glandular tissue below the areola with no nipple discharge, orange-peeling or masses appreciated in the breasts or the axilla. EXAM: Her gynecologic exam shows a cervix that is flush with the pelvic floor. Pap smear was taken, as was an endometrial biopsy, following cleansing with Betadine solution. Bimanual showed mild left adnexal tenderness, a midline, anteflexed uterus of normal size, and no right adnexal tenderness. RECTAL EXAM: Rectal examination was normal tone and guaiac negative. EXTREMITIES: Extremities were without edema. A scar is noted on her right thigh, following I&D of a carbuncle five years ago when she was diagnosed with diabetes. LABORATORY: An Accu-Chek today showed a fasting sugar of 213. Evaluation of her glucose log book shows one incidental finding of a blood glucose of 47. The remainder of the blood glucoses were in the high 100s and 200s. ASSESSMENT/PLAN: 1. NIDDM. The plan is to increase to 15 mg b.i.d. of her Glucotrol and draw baseline labs in three months, prior to increasing dose or adding medication. 2. Health maintenance examination appears within normal limits. Mammogram is planned. Hormone replacement therapy is deferred secondary to tobacco and patient desire. 3. Low back pain. Continue stretching and current medications, as needed. We will see her back in one month to address the remainder of her issues. Eladio Lynch M.D. Urinalysis Technician, Family Medicine [facility] documented in this encounter Plan of Treatment Not on filedocumented as of this encounter Visit Diagnoses Not on filedocumented in this encounter
--- OUTSIDE RECORDS SUMMARY | ~2020-02-24 | XMS | Encounter Summary ---
Demographics + + + | Address | [address] [place] [address] Ln | | | [place] [address] | + + + | Home Phone [...] + + + | Author | [facility] | + + + | Organization | [facility] | + + + | Address | Unknown | + + + | Phone | Unavailable | + + + Support + + + + + | Name | Relationship | Address | Phone | + + + + + | Jeni Shirley | ECON | [facility] | | | | | [place] [address] | | + + + + + Care Team Providers + +------+ + | Care Aeronautical Inspector Name | Role | Phone | + +------+ + | Eladio Lynch MD | PCP | | + +------+ + Encounter Details +--------+ + + + + | Date | Type | Department | Care Team | Description | +--------+ + + + + | 07/05/ | Office | [facility] | Note, [...] as of this encounter Progress Notes Interface, Passport Support Associate In - 07/10/2006 3:11 AM PSTCLINIC DATE: 07/05/1999 [facility] SUBJECTIVE: Ms. Toth comes in five days out from a wound that occurred that a ceramic pot following a large piece then after breaking glanced into the upper dorsum of her foot causing a laceration that is approximately 9 cm long by 0.5-1 cm in a long elliptical fashion. There does not seem to be any evidence of foreign body. She was treating this conservatively with hydrogen peroxide, and Polysporin, and dressings. She is here today with concerns about the potential need for wound approximation and with her history of diabetes to have it examined. PHYSICAL EXAMINATION: VITAL SIGNS: Stable. She is afebrile. She has no streaking up her leg. He joint spaces are intact. The laceration is not beyond the subdermal layer. There is no areas of fluctuants or any circumferential erythema. Her pulses are unchanged to 1+. Capillary refill is slightly slow at 1.5 seconds. Her sensation is intact with the exception of 1 cm circumferentially around the wound. The wound was cleaned, and it is currently not bleeding. ASSESSMENT: A 5-day-old wound. It was thought that this wound needs to close by secondary intention and Curasol gel was decided upon as an adjunct therapy with Polysporin and twice daily dressings. We will have her follow up in one week for re-exam. Eladio Lynch M.D. Syed / [id number] / [id number] / [id number] / [id number] Tdocumented in this encounter Plan of Treatment Not on filedocumented as of this encounter Visit Diagnoses Not on filedocumented in this encounter"
--- OUTSIDE RECORDS SUMMARY | ~2020-02-24 | XMS | Encounter Summary ---
Demographics + + + | Address | [address] | | | [place] [address] | + + + | Home Phone | | + + + | Preferred Language | Unknown | + + + | Marital Status | | + + + | Yazdanism Affiliation | [id number] | + + + | Race | Unknown | + + + | Ethnic Group | Unknown | + + + Author + + + | Author | [facility] | | | and [place] | + + + | Organization | [facility] | | | and [place] [...] Team Providers + +------+ + | Care Book Agent Name | Role | Phone | + +------+ + | Krista Alvarez | PCP | | | PA | | | + +------+ + Encounter Details +--------+ + + + + | Date | Type | Department | Care Team | Description | +--------+ + + + + | 10/01/ | Abstract | [facility] [place] | [place], | | | 2014 | | PULMONARY [address] | [place] CMA | | | | | [place], | | | | | | [place] [address] | | | | | | [phone] | | | +--------+ + + + + Social History + +-------+ +--------+------+ | Tobacco Use | Types | Packs/Day | Years | Date | | | | | Used | | + +-------+ +--------+------+ | Current Every Day | | | | | | Smoker | | | [...]
--- OUTSIDE RECORDS SUMMARY | ~2020-02-24 | XMS | Encounter Summary ---
Demographics + + + | Address | [address] [place] [address] Ln | | | [place] [address] | + + + | Home Phone | | + + + | Preferred Language | Unknown | + + + | Marital Status | | + + + | Religion Affiliation | LINDSAY | + + + [...] | | | | | [place] [address] | | + + + + + Care Team Providers + +------+ + | Care Composition Roll Maker And Cutter Name | Role | Phone | + +------+ + | Eladio Lynch MD | PCP | | + +------+ + Encounter Details +--------+ + + + + | Date | Type | Department | Care Team | Description | +--------+ + + + + | 03/21/ | ED Progress | [facility] | Report, Emergency | ED Progress Note | | 1998 | | MEDICINE | Services | | | | Note-Transc | | | | | | ribed | | | | +--------+ + + [...]
--- OUTSIDE RECORDS SUMMARY | ~2020-02-24 | XMS | Encounter Summary ---
Demographics + + + | Address | [address] [place] [address] Ln | | | [place] [address] | + + + | Home Phone [...] + + + | Author | [facility] | + + + | Organization | [facility] | + + + | Address | Unknown | + + + | Phone | Unavailable | + + + Support + + + + + | Name | Relationship | Address | Phone | + + + + + | Jeni Shirley | ECON | [facility] | | | | | [place] [address] | | + + + + + Care Team Providers + +------+ + | Care Dry End Tester Name | Role | Phone | + +------+ + | Eladio Lynch MD | PCP | | + +------+ + Encounter Details +--------+ + + + + | Date | Type | Department | Care Team | Description | +--------+ + + + + | 01/22/ | Office | [facility] | Note, [...] as of this encounter Progress Notes Interface, Machine Oiler In - 04/05/2006 3:10 AM PDTCLINIC DATE: 01/22/2002 [facility] SUBJECTIVE: Ms. Toth is here for monthly refill of her pain medications that include Vicodin 1 p.o. q.i.d. with Soma 1 p.o. t.i.d. She has a problem list that includes 1. Reactive airway disease. 2. Vll-hokandq-jkeawxyts diabetes mellitus. 3. Pain syndrome. 4. Dyspepsia. 5. Intermittent depression. She has no new concerns today but reiterates the sensations of intermittent hoarseness as well as peripheral radiating rib pain bilaterally approximately at eighth rib with no specific etiology. She does have of note a history of right lobectomy in June 1998 following a lung malignancy identification. CT scan last month did not identify any new metastasis. She does have a small pleural effusion by chest x-ray which has not been tapped to date. OBJECTIVE GENERAL: She is in no apparent distress. She is alert and oriented x 4. VITAL SIGNS: Blood pressure 130/82, pulse 90, respirations 24, and weight 156 pounds. LUNGS: Clear to auscultation. CARDIAC: Regular rate and rhythm. EXTREMITIES: Without edema. She does have tenderness to palpation over the ribs bilaterally with no other identifying exam findings. ASSESSMENT 1. Hoarseness. I discussed the possibility of flexible nasopharyngoscopy for which she was amendable to, and I think would help reassure this hoarseness or identify focal problem. She does have a smoking history up to September 2000. 2. Diabetes. We will get a hemoglobin A1c today as well as a complete metabolic panel as she has just started Avandia therapy on top of metformin 850 mg t.i.d. and glipizide 20 mg b.i.d. Eladio Lynch M.D. ROSIE / KIMBERLEY [id number] / [id number] / [id number] / Tdocumented in this encounter Plan of Treatment Not on filedocumented as of this encounter Visit Diagnoses Not on filedocumented in this encounter"
--- OUTSIDE RECORDS SUMMARY | ~2020-02-24 | XMS | Encounter Summary ---
Demographics + + + | Address | [address] | | | [place] [address] | + + + | Home Phone | | + + + | Preferred Language | Unknown | + + + | Marital Status | | + + + | Lutheran Affiliation | 1041 | + + + | Race | Unknown | + + + | Ethnic Group | Unknown | + + + Author + + + | Author | [facility] | | | and [place] | + + + | Organization | [facility] | | | and [place] | + [...] Team Providers + +------+ + | Care Fancy Needleworker Name | Role | Phone | + +------+ + | Krista Alvarez | PCP | | | PA | | | + +------+ + Encounter Details +--------+ + + + + | Date | Type | Department | Care Team | Description | +--------+ + + + + | 05/10/ | Abstract | [facility] [place] | [place], | | | 2017 | | PHYSIATRY [address] | [address] [address] | | | | | [address] | [address] | | | | | [place], [place] | [place] [address] | | | | | [address] | [phone] | | | | | [phone] | | | +--------+ + + + + Social History + + + +--------+ + | Tobacco Use | Types | Packs/Day | Years | Date | | | | | Used | | + + + +--------+ + | Former Smoker | Cigarettes | 0.5 | 60 | 1927 - 11/2014 | + + + +--------+ + + [...]
--- OUTSIDE RECORDS SUMMARY | ~2020-02-24 | XMS | Encounter Summary ---
Demographics + + + | Address | [address] [place] [address] Ln | | | [place] [address] | + + + | Home Phone [...] | [facility] | | | | | [place] [address] | | + + + + + Care Team Providers + +------+ + | Care Kitchen Steward Name | Role | Phone | + +------+ + | Eladio Lynch MD | PCP | | + +------+ + Encounter Details +--------+ + + + + | Date | Type | Department | Care Team | Description | +--------+ + + + + | 07/10/ | Discharge | | Summary, Discharge | D/C Summary ODDS | | 1997 | Summary-Tra | | | | | | nscribed | | | | +--------+ + + [...] + + documented as of this encounter Discharge Summaries Interface, Psychological Assistant In - 08/11/2006 3:[address] [address] [facility] MEDICAL SUMMARY OF HOSPITALIZATION Med Rec No: [id number] Admission Date: 07/06/1998 Name: Martha Toth Discharge Date: 07/10/1998 STAFF PHYSICIAN: Nikolay Griffith M.D. 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 ADDITIONAL DIAGNOSES: 1. Chronic obstructive pulmonary disease (COPD). 2. Asthma. 3. Chronic back pain. 4. Diabetes mellitus. 5. Hypercholesterolemia. 6. Positive smoking history. PRINCIPAL PROCEDURE: On 07-06-98, status post right lower lobectomy and bronchoscopy. ADDITIONAL PROCEDURES: 1. Epidural analgesia provided by Pain Management. 2. Physical therapy consult. REASON FOR ADMISSION: Ms. Toth is a pleasant, 57-year-old woman admitted in April 1998 for nausea and vomiting. A routine admit chest x-ray revealed a right lower lobe mass. Computed tomography (CT) scan was done which showed a 2 cm right lower lobe mass with possible peritracheal adenopathy. Repeat CT scan here confirmed a mass, but no adenopathy was seen at that time. A CT-guided biopsy was consistent with squamous cell carcinoma of the lung. In addition, she reports an episode of hemoptysis three to four months ago. She has a long-standing smoking history, but quit approximately two months ago. FEV1 is 1.159, which is 69% of predicted and a room air gas shows a pH of 7.41, PCO2 41, and PO2 of 79. PAST MEDICAL/SURGICAL HISTORY: As above. MEDICATIONS: 1. Potassium chloride 20 mEq q.d. 2. Lasix 40 mg q.d. 3. Glucophage 500 mg t.i.d. 4. Glipizide 5 mg b.i.d. 5. Lipitor 20 mg q.d. 6. Claritin 10 mg q.d. 7. Vancenase nasal spray, two squirts b.i.d. 8. Albuterol metered dose inhaler (MDI), four puffs q.i.d. 9. Ultram prn. 10. Hydrocodone prn. ALLERGIES: No known drug allergies. PHYSICAL EXAMINATION: GENERAL: Well-developed, well-nourished white female in no acute distress. HEENT: Pupils equal, round, and reactive to light. Oropharynx clear. Dentures. NECK: Supple, no lymphadenopathy, no bruits. CHEST: Clear. No rales or rhonchi or wheezes. Symmetric. CARDIOVASCULAR: Regular rate, no murmur. ABDOMEN: Soft, nontender. EXTREMITIES: No edema, warm. HOSPITAL COURSE: The patient was admitted on the morning of surgery where she was taken to the Operating Room and underwent a right lower lobectomy, flexible bronchoscopy. Findings at surgery included a 3 x 3 cm mass in the right lower lobe of her lung. She had hilar and peritracheal lymph nodes removed with the specimen. The patient tolerated the procedure well and was extubated in the Operating Room and transported in stable condition to the Post Anesthesia Care Unit and then to the Intensive Care Unit. Postoperative day one was notable for a temperature spike early in the morning to 39. This was attributed to atelectasis. The patient underwent aggressive pulmonary toilet, was gotten out of bed, and this subsequently resolved. Her hematocrit on that morning was 24. She therefore received two units of packed red blood cells. Her pain control was excellent with an epidural. She worked with Physical Therapy on postoperative day one. She was also transferred to the julien that day. On postoperative day two, her chest tubes were placed to water seal and had no leak. She continued to work on pulmonary toilet with Physical Therapy and her incentive spirometer. On postoperative day three, her chest tube output had greatly decreased. A chest x-ray was obtained which showed excellent expansion of her lung with no effusion. Therefore, the chest tubes were removed. The patient's epidural was also removed at this time and she was switched to oral pain management. On postoperative day four, a chest x-ray was checked and the patient was discharged to home. CONDITION ON DISCHARGE: Stable. Disposition is to home. DISCHARGE MEDICATION(S): 1. Atrovent metered dose inhaler (MDI), four puffs q.i.d. 2. Albuterol MDI, four puffs q.i.d. 3. Tylox, 1-2 tablets p.o. q4h prn pain. 4. Claritin 10 mg p.o. q.d. 5. Vancenase nasal spray, two squirts b.i.d. 6. Glipizide 5 mg p.o. b.i.d. 7. Lasix 40 mg p.o. q.d. 8. Potassium chloride 20 mEq p.o. q.d. 9. Glucophage 500 mg p.o. t.i.d. 10. Lipitor 20 mg p.o. q.d. DISCHARGE INSTRUCTION(S): ACTIVITY: As tolerated. DIET: Regular. FOLLOW-UP: Follow-up with Cardiopulmonary Surgery Clinic in three weeks. Farida Noguera M.D. Resident, General Surgery Nikolay Griffith M.D. Professor, Surgery Chief, Division of Cardiopulmonary Surgery Heather A cc: documente d in this encounter Plan of Treatment Not on filedocumented as of this encounter Visit Diagnoses Not on filedocumented in this encounter"
--- OUTSIDE RECORDS SUMMARY | ~2020-02-24 | XMS | Encounter Summary ---
Demographics + + + | Address | [address] [place] [address] Ln | | | [place] [address] | + + + | Home Phone | | + + + | Preferred Language | Unknown | + + + | Marital Status | | + + + | Cheondoism Affiliation | LINDSAY | + + + [...] | | | | | [place] [address] | | + + + + + Care Team Providers + +------+ + | Care Wire Taper Name | Role | Phone | + +------+ + PCP | Unavailable | + +------+ + Encounter Details +--------+ + + + + | Date | Type | Department | Care Team | Description | +--------+ + + + + | 03/19/ | Office | [facility] | Note, [...] as of this encounter Progress Notes Interface, Irrigator In - 03/06/2005 7:43 AM PDTClinic Date: 03/19/2004 Subjective: This 63-year-old female with a history of diabetes mellitus, chronic back pain, peripheral vascular disease, and a right partial lobectomy secondary to cancer. The patient shares a story of the 10-day illness including a emergency room visit for nausea, vomiting, and diarrhea. She maintains that her medications were regular at this point and glycemic control did not change dramatically. She did feel febrile with this. There were no other sick contacts she was aware of. She had slightly elevated liver enzymes but otherwise recovered and feels well today. Allergies: SHE HAS ALLERGIES TO ANTI-INFLAMMATORIES AND PENICILLIN. Medications: She is on medications as follows; aspirin, Zoloft, Glucophage, glipizide, Avandia, amitriptyline, Lasix, Advair, albuterol, Zestril, Vicodin, and Soma. Problem List: Includes chronic back pain, depression, reactive airway disease, and diabetes mellitus. Family History: She has a family history of cancer. Social History: Discontinued smoking in 1997. She acknowledges increasing social stressors in her nuclear family. The additional stressor currently is her appreciation for a loss of insurance in 1 month. Her interest in maintenance issues has been heightened as a result. Review of Systems: A 13-pound weight loss during this previous illness. She has ongoing shortness of breath, musculoskeletal pain. Remainder of systems are negative. Objective General: She is alert and oriented x4. Skin: She has no skin rashes. Neck: No cervical adenopathy. She has a pleasant affect. The parotid glands are slightly enlarged. She has no thyromegaly. Cardiac: Regular rate and rhythm. Lungs: Clear to auscultation with no decreased breath sounds at the base Abdomen: Soft. Positive bowel sounds. Extremities: Strength is 5/5 in upper and lower extremities. She has a slight decreased vibratory sense in her toes as appose to her mid foot. Assessment 1. Diabetes. We discussed beginning insulin as an adjuvant therapy for she has maximized on 3 different oral hypoglycemics and is interested in a most cost effective approach to treating her diabetes. Presently, we will use 20 units of 70/30 NPH b.i.d. Discontinue her Avandia. Monitor her glycemic control closely. She was given my e-mail address as a mechanism of continue to monitor her glycemic control. Taper off her metformin and slowly increase her insulin. Eladio Lynch M.D. ROSIE / KIMBERLEY [id number] / [id number] / [id number] / [id number] Tdocumented in this encounter Plan of Treatment Not on filedocumented as of this encounter Visit Diagnoses Not on filedocumented in this encounter"
--- OUTSIDE RECORDS SUMMARY | ~2020-02-24 | XMS | Encounter Summary ---
Demographics + + + | Address | [address] [place] [address] Ln | | | [place] [address] | + + + | Home Phone | | + + + | Preferred Language | Unknown | + + + | Marital Status | | + + + | Muslim Affiliation | LINDSAY | + + + [...] | | | | | [place] [address] | | + + + + + Care Team Providers + +------+ + | Care Patient Accounts Coordinator Name | Role | Phone | + +------+ + | Eladio Lynch MD | PCP | | + +------+ + Reason for Visit + + + | Reason | Comments | + + + | Follow-up encounter | on diabetes,and med refiils | + + + | Pain | lower back pain the scale is 10/10 | + + + Encounter Details +--------+---------+ + + + | Date | Type | Department | Care Team | Description | +--------+---------+ + + + | 05/21/ | Office | [facility] | Eladio Lynch, | Unspecified Backache | | 2006 | Visit | at [facility] | MD [address] | (Primary Dx) | | | | [address] | [place], [place] | | | | | [facility] | [address] | | | | | and Healing, | [phone] | | | | | | | | | | | Floor [place], [place] | | | | | | [address] | | | | | | [phone] | | | +--------+---------+ + + + [...] + + + | Blood Pressure | 98/60 | 05/21/2007 3:10 PM | | | | | PDT | | + + + + + | Pulse | 62 | 05/21/2007 3:10 PM | | | | | PDT | | + + + + + | Temperature | 37 C (98.6 F) | 05/21/2007 3:10 PM | | | | | PDT [...] + + + + | Weight | 88.5 kg (195 lb) | 05/21/2007 3:10 PM | | | | | PDT | | + + + + + | Height | - | - | | + + + + + | Body Mass Index | 36.54 | 03/19/2007 2:17 PM | | | | | PDT | | + + + + + documented in this encounter Progress Notes Eladio Lynch - 05/21/2007 3:56 PM PDTFormatting of this note might be different from t gonzalez original. ID: Martha Toth is a 66 y.o. Female CC: whole body pain HPI: Martha Toth had 4 hr of ant sub sternal chest pain with pressure. No radiation, and no diaphoresis, + chills, no fever. Pain with deep breath and yawning. Less intense pain wi th arm movement though she has chronic shoulder pain at baseline. She does not think this is cardiac pain. PHx: rt. Lung mass removal. Habits - no tob for 10 yrs. Patient Active Problem List Diagnoses Code UNSPECIFIED [...] prior to encounter Medication Sig Dispense Refill Beclomethasone Dipropionate (QVAR) 80 mcg/Actuation Inhalation Aerosol inhale 3 puffs t id 2 12 Diazepam (VALIUM) 5 mg Oral Tablet prn flying 12 0 Amitriptyline HCl 50 mg OR TABS 2 [...] route per insul in protocol 20 11 SOMA 350 MG TAB 1 po qid [...] ASPIRIN 325 MG ORAL TAB None Entered Physical Examination Blood pressure 98/60, pulse 62, temperature 98.6 F (37 C), temperature source Oral, jyoti ght 88.451 kg (195 lbs). Patient is alert and oriented times three. Cv - rrr Resp - cta Ext - no edema ASSESSMENT: Encounter Diagnoses Code Name Primary? 724.5 Unspecified Backache Yes Plan: VICODIN ES 7.5 MG-750 MG TAB Refill current medications per medication care agreement @ [facility], family medicine as above. documented in this encou nter Plan of Treatment Not on filedocumented as of this encounter Visit Diagnoses + + | Diagnosis | + + | Backache, unspecified - Primary | + + documented in this encounter"
--- OUTSIDE RECORDS SUMMARY | ~2020-02-24 | XMS | Encounter Summary ---
Demographics + + + | Address | [address] [place] [address] Ln | | | [place] [address] | + + + | Home Phone | | + + + | Preferred Language | Unknown | + + + | Marital Status | | + + + | Episcopalian Affiliation | LINDSAY | + + + [...] | | | | | [place] [address] | | + + + + + Care Team Providers + +------+ + | Care School Business Manager Name | Role | Phone | + +------+ + PCP | Unavailable | + +------+ + Encounter Details +--------+ + + + + | Date | Type | Department | Care Team | Description | +--------+ + + + + | 12/14/ | Results | [facility] | Eladio Lynch, | | | 1998 | Only | Medicine at [facility] | [address] | | | | | [place] [address] | [place], [place] | | | | | [address] | [address] | | | | | Mailcode: MINDY Albarran | [phone] | | | | | [address] | | | | | | [place], [place] | | | | | | [address] | | | | | | [phone] | | | +--------+ + + + [...] | + +--------+ + + + | MAMMOGRAPHY, | Routin | 12/14/1998 | | Results for this | | BILATERAL SCREEN | e | 2:43 PM | | procedure are in the | | | | PDT | | results section. | + +--------+ + + + documented in this encounter Results MAMMOGRAPHY, BILATERAL SCREEN (12/14/1998 2:43 PM PDT) + + + + + + | Component | Value | Ref Range | Performed | Pathologist | | | | | At | Signature | + + + + + + | MAMMOGRAPHY | Radiologist 1: | | | | | , BILATERAL | ENDY RUTLEDGE, | | | | | SCREEN | M.D.-Radiologist 2: | | | | | | VY HICKS, | | | | | | M.D.BILATERAL SCREENING | | | | | | MAMMOGRAPHY: 12/14/98 at | | | | | | 1443 hours. | | | | | | Dictated on 12/14/98 | | | | | | CLINICAL HISTORY: | | | | | | 58-year-old asymptomatic | | | | | | patient with | | | | | | negativefamily history. | | | | | | The patient has a | | | | | | history of lung cancer. | | | | | | FINDINGS: There are no | | | | | | comparison studies. | | | | | | Minimally dense | | | | | | breastparenchyma is | | | | | | symmetric. No | | | | | | suspicious | | | | | | calcifications or masses | | | | | | orarchitectural | | | | | | distortion are seen in | | | | | | either breast. | | | | | | IMPRESSION: Benign | | | | | | mammogram. Annual | | | | | | screening mammography is | | | | | | recommended. END OF | | | | | | IMPRESSION: | | | | + + + + + + + + | Specimen | + + | | + + + +---------+ + [...]
--- OUTSIDE RECORDS SUMMARY | ~2020-02-24 | XMS | Encounter Summary ---
Demographics + + + | Address | [address] [place] [address] Ln | | | [place] [address] | + + + | Home Phone [...] + + + | Author | [facility] | + + + | Organization | [facility] | + + + | Address | Unknown | + + + | Phone | Unavailable | + + + Support + + + + + | Name | Relationship | Address | Phone | + + + + + | Jeni Shirley | ECON | UA | | | | | [place] [address] | | + + + + + Care Team Providers + +------+ + | Care Echocardiographer Name | Role | Phone | + +------+ + | Eladio Lynch MD | PCP | | + +------+ + Encounter Details +--------+ + + + + | Date | Type | Department | Care Team | Description | +--------+ + + + + | 12/26/ | Office | [facility] | Note, [...] as of this encounter Progress Notes Interface, House Father In - 06/26/2006 5:25 AM PSTCLINIC DATE: 12/27/1999 [facility] SUBJECTIVE: Ms. Toth returns for refill of her contracted medications for chronic pain syndrome. She currently is having issues with her right-sided pleuritic pain just over the region where she had a partial pneumonectomy secondary to cancer that seems to have resolved. She additionally has chronic back pain and has had this since early adulthood. Additionally, she has right-sided forearm pain. OBJECTIVE: GENERAL: She is in no apparent distress. VITAL SIGNS: Stable. She is alert and oriented times four and afebrile. EXTREMITIES: Her right elbow has some bruising at the lateral epicondyle with breakaway pain testing against resistence. Flexion, supination, and pronation are not as intense resistence against extension. She is otherwise on exam. ASSESSMENT AND PLAN 1. Epicondylitis lateralis. I encouraged her to use ice and continue to wear strap tennis elbow brace their. 2. Chronic pain syndrome. We will refill Vicodin 120, Soma 120 to be used q.i.d. and refill in one month. 3. Depression, seems be improved with respect to her ability to tolerate the new onsets of recurrent lifestyle. She will continue Zoloft 100 mg p.o. q.d. We will see her back in one month. Eladio Lynch M.D. ROSIE / KIMBERLEY [id number] / [id number] / [id number] / [id number] signed by Interface, House Father In at 06/26/2006 5:25 AM PSTdocume nted in this encounter Plan of Treatment Not on filedocumented as of this encounter Visit Diagnoses Not on filedocumented in this encounter"
--- OUTSIDE RECORDS SUMMARY | ~2020-02-24 | XMS | Encounter Summary ---
Demographics + + + | Address | [id number] [place] [address] Ln | | | [place] [address] | + + + | Home Phone | | + + + | Preferred Language | Unknown | + + + | Marital Status | | + + + | Taoist Affiliation | LINDSAY | + + + | Race | White | + + + | Ethnic Group | Not or | + + + Author + + + | Author | [facility] | + + + | Organization | [facility] | + + + | Address | Unknown | + + + | Phone | Unavailable | + + + Support + + + + + | Name | Relationship | Address | Phone | + + + + + | Jeni Shirley | ECON | UA | | | | | [place] [address] | | + + + + + Care Team Providers + +------+ + | Care Rotary Screen Printing Machine Operator Name | Role | Phone | [...] as of this encounter Progress Notes Interface, Senior Procurement Specialist In - 03/06/2005 9:00 AM PDT [id number] TARI CALDWELL Clinic Date: 06/03/2004 [facility] Chief Complaint: Screening flexible sigmoidoscopy. [...] Carlisle M.D. Eladio Lynch M.D. / KIMBERLEY [id number] / [id number] / [id number] / documented i n this encounter Plan of Treatment Not on filedocumented as of this encounter Visit Diagnoses Not on filedocumented in this encounter"
--- OUTSIDE RECORDS SUMMARY | ~2020-02-24 | XMS | Encounter Summary ---
Demographics + + + | Address | [address] [place] [address] Ln | | | [place] [address] | + + + | Home Phone | | + + + | Preferred Language | Unknown | + + + | Marital Status | | + + + | Yazdanism Affiliation | LINDSAY | + + + [...] | | | | | [place] [address] | | + + + + + Care Team Providers + +------+ + | Care Airplane First Officer Name | Role | Phone | + +------+ + PCP | Unavailable | + +------+ + Encounter Details +--------+ + + + + | Date | Type | Department | Care Team | Description | +--------+ + + + + | 09/13/ | Office | [facility] | Note, [...] as of this encounter Progress Notes Interface, Nuclear Medicine Physician In - 03/06/2005 12:17 AM PDT [id number] [facility] Clinic Date: 09/13/2004 [facility] Subjective: This is a visit to refill chronic pain medications for Ms. Toth who has generalized pain from her low back as well as multiple joint osteoarthritis. She has been on oral narcotics for many years. At the present time, she is on a medication care agreement at [facility] for Vicodin 5/500 one p.o. q.i.d. with 1 refill. She also uses Soma 1 p.o. t.i.d. This will be filled #90 with 1 refill today. We will have her followup in 2 months, and we will considerately review her diabetes as well as her other problems at that point in time. Eladio Lynch M.D. ROSIE / KIMBERLEY [id number] / [id number] / [id number] / Electronically signed by Eladio Lynch 09-20-2004 09:24:00 AM documented i n this encounter Plan of Treatment Not on filedocumented as of this encounter Visit Diagnoses Not on filedocumented in this encounter"
--- OUTSIDE RECORDS SUMMARY | ~2020-02-24 | XMS | Encounter Summary ---
Demographics + + + | Address | [address] [place] [address] Ln | | | [place] [address] | + + + | Home Phone | | + + + | Preferred Language | Unknown | + + + | Marital Status | | + + + | Mandaeism Affiliation | LINDSAY | + + + | Race | White | + + + | Ethnic Group | Not or | + + + Author + + + | Author | [facility] | + + + | Organization | [facility] | + + + | Address | Unknown | + + + | Phone | Unavailable | + + + Support + + + + + | Name | Relationship | Address | Phone | + + + + + | Jeni Shirley | ECON | UA | | | | | [place] [address] | | + + + + + Care Team Providers + +------+ + | Care Ultrasonic Seaming Machine Operator Name | Role | Phone | + +------+ + | Eladio Lynch MD | PCP | | + +------+ + Encounter Details +--------+ + + + + | Date | Type | Department | Care Team | Description | +--------+ + + + + | 05/23/ | ED Progress | [facility] | Report, Emergency | ED Progress Note | | 2000 | | MEDICINE | Services | | [...]
--- OUTSIDE RECORDS SUMMARY | ~2020-02-24 | XMS | Encounter Summary ---
Demographics + + + | Address | [address] [place] [address] Ln | | | [place] [address] | + + + | Home Phone [...] + + + | Author | [facility] | + + + | Organization | [facility] | + + + | Address | Unknown | + + + | Phone | Unavailable | + + + Support + + + + + | Name | Relationship | Address | Phone | + + + + + | Jeni Shirley | ECON | UA | | | | | [place] [address] | | + + + + + Care Team Providers + +------+ + | Care Jewelry Inspector Name | Role | Phone | [...] as of this encounter Progress Notes Interface, Fork Operator In - 02/24/2006 3:01 AM PDTCLINIC DATE: 11/15/2002 [facility] SUBJECTIVE: Ms. Toth is here for [...] ulcerations and gross sensation is intact. ASSESSMENT: Ftc-wfbojjo-xslamecij diabetes mellitus. PLAN 1. Refill medications. 2. [...] spot microalbumin. Eladio Lynch M.D. Syed / [id number] / [id number] / [id number] / [id number] Tdocumented in this encounter Plan of Treatment Not on filedocumented as of this encounter Visit Diagnoses Not on filedocumented in this encounter"
--- OUTSIDE RECORDS SUMMARY | ~2020-02-24 | XMS | Encounter Summary ---
Demographics + + + | Address | [address] [place] [address] Ln | | | [place] [address] | + + + | Home Phone [...] | | | | | [place] [address] | | + + + + + Care Team Providers + +------+ + | Care Chute Loader Name | Role | Phone | + +------+ + | Eladio Lynch MD | PCP | | + +------+ + Reason for Visit + + + | Reason | Comments | + + + | Follow-up visit | | + + + | Follow-up Diabetic | | | Assessment | | + + + | Wrist pain | Fx about a month ago | + + + Encounter Details +--------+---------+ + + + | Date | Type | Department | Care Team | Description | +--------+---------+ + + + | 01/16/ | Office | [facility] Primary [facility] | Eladio Lynch, | Unspecified Backache | | 2006 | Visit | at [facility] | MD [address] | (Primary Dx) | | | | [address] | [place], [place] | | | | | [facility] | [address] | | | | | and Healing, | [phone] | | | | | [facility] | | | | | | [place], [place] | | | | | | [address] | | | | | | [phone] | | | +--------+---------+ + + + [...] + | Blood Pressure | 98/62 | 01/16/2007 11:26 AM | | | | | PDT | | + + + + + | Pulse | 86 | 01/16/2007 11:26 AM | | | | | PDT | [...] + + + + | Weight | 87.1 kg (192 lb) | 01/16/2007 11:26 AM | | | | | PDT | | + + + + + | Height | - | - | | + + + + + | Body Mass Index | 35.98 | 07/14/2006 9:22 AM | | | | | PST | | + + + + + documented in this encounter Progress Notes Eladio Lynch - 01/16/2007 12:03 PM PDTFormatting of this note might be different from t he original. ID: Martha Toth is a 66 y.o. female CC: rt. Arm fracture. HPI: Martha Toth , now in volar splint for min. Displaced fracture treated through the tua lity system. Martha Toth has much to say about the cost incurred through this process. Also, she is here today for a refil of opoid analgesic [facility] family medicine and Dr. Lynch. Patient Active Problem List Diagnoses Code UNSPECIFIED [...] Dispense Refill Beclomethasone Dipropionate (QVAR) 80 mcg/Actuation IN AERO inhale 3 puffs tid 2 12 Amitriptyline HCl 50 mg OR TABS 2 [...] Hives Physical Examination Blood pressure 98/62, pulse 86, weight 87.091 kg (192 lbs). no apparent distress Arm Mildly stiff, no significant tenderness. neurovascularly intact. ASSESSMENT: Encounter Diagnoses Code Name Primary? 724.5 Unspecified Backache Yes Plan: VICODIN ES 7.5 MG-750 MG TAB, FOREARM 2 VIEWS RIGHT, FOREARM 2 VIEWS RIGHT Refill current medications per medication care agreement @ [facility], family medicine as above. Will jeana-ray in one month prior to clearing arm, as patient no longer wishes to go through [facility] for same. Shawn Salas - 01/16/2007 11:30 AM PDTPt took fasting blood glucose at 0930: 48Electronically cece d by Shawn Hogan at 01/16/2007 11:30 AM PDTdocumented in this encounter Plan of Treatment Not on filedocumented as of this encounter Procedures + +--------+ + + + | Procedure Name | Priori | Date/Time | Associated Diagnosis | Comments | | | ty | | | | + +--------+ + + + | X-RAY FOREARM 2 | Routin | 01/30/2007 | Unspecified | Results for this | | VIEWS RIGHT | e | 11:07 AM | Backache | procedure are in the | | | | PDT | | results section. | + +--------+ + + + documented in this encounter Results FOREARM 2 VIEWS RIGHT (01/30/2007 11:07 AM PDT) + + + + + + | Component | Value | Ref Range | Performed | Pathologist | | | | | At | Signature | + + + + + + | FOREARM 2 | Radiologist 1: BART, | | | | | VIEWS RIGHT | Le PINEDARIGHT | | | | | | FOREARM, TWO VIEWS: | | | | | | 01/30/2007 Dictated | | | | | | 01/30/2007 There is a | | | | | | transverse comminuted | | | | | | fracture through the | | | | | | distal radialmetaphysis | | | | | | with dorsal impaction | | | | | | and dorsal angulation of | | | | | | the distalradial | | | | | | articular surface. | | | | | | This probably extends | | | | | | intraarticularly.There | | | | | | may also be fracture of | | | | | | the ulnar styloid | | | | | | process. This is | | | | | | notwell visualized | | | | | | because of positioning. | | | | | | The proximal radius | | | | | | and ulnaare intact. | | | | | | The joint spaces of | | | | | | the elbow are | | | | | | maintained. IMPRESSION: | | | | | | Comminuted impacted | | | | | | fracture of the distal | | | | | | radial metaphysis | | | | | | withdorsal angulation of | | | | | | the distal radial | | | | | | articular surface. | | | | | | Probable nondisplaced | | | | | | fracture of the ulnar | | | | | | styloid process. END | | | | | | IMPRESSION: [...]
--- OUTSIDE RECORDS SUMMARY | ~2020-02-24 | XMS | Encounter Summary ---
Demographics + + + | Address | [address] | | | [place] [address] | + + + | Home Phone | | + + + | Preferred Language | Unknown | + + + | Marital Status | | + + + | Presybeterian Affiliation | 1041 | + + + | Race | Unknown | + + + | Ethnic Group | Unknown | + + + Author + + + | Author | [facility] | | | and [place] | + + + | Organization | [facility] | | | and [place] | [...] Team Providers + +------+ + | Care Rat Poisoner Name | Role | Phone | + +------+ + | Krista Alvarez | PCP | | | PA | | | + +------+ + Encounter Details +--------+ + + + + | Date | Type | Department | Care Team | Description | +--------+ + + + + | 04/16/ | Imaging | [facility] | Provider, | | | 2018 | Exam | [facility] | MD [address] | | | | | IMAG[address] | [address] | | | | | [address] | [place] [address] | | | | | [place] [address] | | | | | | [phone] | | | +--------+ + + + [...] | + +--------+ + + + | DEXA BONE DENSITY | Routin | 09/21/2017 | | Results for this | | STUDY JUAN KHOURY FX | e | 2:45 PM | | procedure are in the | | ASSESSMENT | | PST | | results section. | + +--------+ + + + documented in this encounter Results DEXA Bone Density wo Vert Fx Assmt (09/21/2017 2:45 PM PST) + + | Specimen | + [...]
--- OUTSIDE RECORDS SUMMARY | ~2020-02-24 | XMS | Encounter Summary ---
Demographics + + + | Address | [address] [place] [address] Ln | | | [place] [address] | + + + | Home Phone [...] + + + | Author | [facility] | + + + | Organization | [facility] | + + + | Address | Unknown | + + + | Phone | Unavailable | + + + Support + + + + + | Name | Relationship | Address | Phone | + + + + + | Jeni Shirley | ECON | UA | | | | | [place] [address] | | + + + + + Care Team Providers + +------+ + | Care Side Puller Name | Role | Phone | + +------+ + | Eladio Lynch MD | PCP | | + +------+ + Encounter Details +--------+ + + + + | Date | Type | Department | Care Team | Description | +--------+ + + + + | 01/24/ | Office | [facility] | Note, [...] as of this encounter Progress Notes Interface, Metal Casting Trades Worker In - 06/24/2006 5:23 AM PSTCLINIC DATE: 01/25/2000 [facility] SUBJECTIVE: Ms. Toth is here for general checkup of her diabetes mellitus. She is currently on oral hypoglycemics for this. She checks her sugars occasionally. Their range in the 100s, occasionally to the 200s. She uses Glucophage 850 mg t.i.d. and glipizide 10 mg b.i.d. She also is in need of her monthly contracted medications for pain that are Soma one p.o. q.i.d. and Vicodin one p.o. q.i.d. primarily for back spasm and also for right-sided rib pain after thoracotomy. OBJECTIVE: GENERAL: She is in no apparent distress. Her affect is positive. She is alert and oriented times four. VITAL SIGNS: Stable. EXTREMITIES: Her feet are without lesions or ulcerations. There are good dorsalis pedal pulses. NEUROLOGIC: Good sensation throughout all dermatomes. ASSESSMENT: Hjf-nvrsupg-chuzcjivz diabetes mellitus. PLAN: Urine for microalbumin, metabolic panel, and hemoglobin A1c. We will refill her medications and see her back in one month. Eladio Lynch M.D. ROSIE / KIMBERLEY [id number] / [id number] / [id number] / [id number] signed by Interface, Metal Casting Trades Worker In at 06/24/2006 5:23 AM PSTdocume nted in this encounter Plan of Treatment Not on filedocumented as of this encounter Visit Diagnoses Not on filedocumented in this encounter"
--- OUTSIDE RECORDS SUMMARY | ~2020-02-24 | XMS | Encounter Summary ---
Demographics + + + | Address | [address] [place] [address] Ln | | | [place] [address] | + + + | Home Phone | | + + + | Preferred Language | Unknown | + + + | Marital Status | | + + + | Mosque Affiliation | LINDSAY | + + + [...] | | | | | [place] [address] | | + + + + + Care Team Providers + +------+ + | Care Remelt Operator Name | Role | Phone | [...] Request | | 2006 | | at [facility] | MD [address] | | | | | [address] | [facility] [place] | | | | | [facility] | [address] | | | | | and Healing, | [phone] | | | | | Building | | | | | | Floor [facility] [place] | | | | | | [address] | | | | | | [phone] | | | +--------+--------+ + + + [...]
--- OUTSIDE RECORDS SUMMARY | ~2020-02-24 | XMS | Encounter Summary ---
Demographics + + + | Address | [address] [place] [address] Ln | | | [place] [address] | + + + | Home Phone | | + + + | Preferred Language | Unknown | + + + | Marital Status | | + + + | Mu-Ism Affiliation | LINDSAY | + + + [...] | | | | | [place] [address] | | + + + + + Care Team Providers + +------+ + | Care Director News Name | Role | Phone | + +------+ + | Eladio Lynch MD | PCP | | + +------+ + Encounter Details +--------+ + + + + | Date | Type | Department | Care Team | Description | +--------+ + + + + | 09/22/ | Office | [facility] | Note, [...] as of this encounter Progress Notes Interface, Parts Salesperson In - 08/05/2006 1:03 AM PSTCLINIC DATE: 09/22/1998 [facility] SUBJECTIVE: The patient is a 68-year-old woman with a history of diabetes type II status post back surgery times two with chronic back pain and status post right lower lobectomy secondary to lung malignancy. She is here for medication refills. The patient states that over the past six weeks she has been feeling progressively stressed at home. She states that she is having marital problems with her . is not willing to talk over problems with patient and patient subsequently feels frustrated. The patient also is having problems with her daughter who believes that she is taking too much pain medications for her chronic lower back pain. Over the past 24 hours, she reached a point where she was so frustrated that she threw all of her medications away, including her diabetic and pain medications. The patient presents now requesting refills. The patient states that she tentatively has an appointment with social services technician to discuss her issues with stress and her home life situation. The patient denies feelings of depression but does have fatigue. MEDICATIONS: 1. Glucophage 500-mg t.i.d. 2. Soma 350-mg t.i.d. 3. Vicodin one tablet q.i.d. p.r.n. pain. 4. two puffs b.i.d. 5. Lipitor 20-mg q. day. OBJECTIVE: On examination her blood pressure was 138/74. Pulse was 74 and repeat was 80. Fingerstick was 266. She appears somewhat anxious and teary-eyed but otherwise in no acute distress. Ambulating without difficulty. Rest of exam deferred. ASSESSMENT: Patient with multiple medical problems including diabetes and chronic lower back pain, here for medication refills. We will provide medication refills and schedule with outpatient primary care physician. PLAN: 1. Some 350-mg p.o. t.i.d. We will dispense 21 tablets. 2. Vicodin one tablet q.i.d. We will dispense 28 tablets. 3. Lipitor 20-mg q. day, #30. 4. Glucophage 500-mg t.i.d., #30. 5. Follow-up with Dr. Lynch in one week. Yovany Amin M.D. VENESSA/padmaja cc: DANDRE CRONIN MD [facility] document ed in this encounter Plan of Treatment Not on filedocumented as of this encounter Visit Diagnoses Not on filedocumented in this encounter"
--- OUTSIDE RECORDS SUMMARY | ~2020-02-24 | XMS | Encounter Summary ---
Demographics + + + | Address | [address] [place] [address] Ln | | | [place] [address] | + + + | Home Phone [...] | | | | | [place] [address] | | + + + + + Care Team Providers + +------+ + | Care Floral Arranger Name | Role | Phone | + [...] + + | 01/16/ | Office | [facility] Primary Care | Eladio Lynch, | Unspecified Backache | | 2006 | Visit | at [facility] | MD [address] | (Primary Dx) | | | | [address] | [place], [place] | | | | | [facility] | [address] | | | | | and Healing, | [phone] | | | | | [facility] | | | | | | [place], [place] | | | | | | [address] | | | | | | [phone] | | | +--------+---------+ + + + [...] [facility] and Dr. Lynch. Patient [...] current medications per medication care agreement @ [facility], family medicine as above. Will jeana-ray in one month prior to clearing arm, as patient no longer wishes to go through [facility] for same. Shawn Salas - 01/16/2007 [...]
--- OUTSIDE RECORDS SUMMARY | ~2020-02-24 | XMS | Encounter Summary ---
Demographics + + + | Address | [address] [place] [address] Ln | | | [place] [address] | + + + | Home Phone [...] | | | | | [place] [address] | | + + + + + Care Team Providers + +------+ + | Care Estate Planner Name | Role | Phone | + +------+ + | Eladio Lynch MD | PCP | | + +------+ + Encounter Details +--------+ + + + + | Date | Type | Department | Care Team | Description | +--------+ + + + + | 10/30/ | Office | [facility] | Note, [...] as of this encounter Progress Notes Interface, Scratcher In - 08/02/2006 5:02 AM PSTCLINIC DATE: 10/30/1998 [facility] SUBJECTIVE: Ms. Toth is a 58-year-old female with a history of diabetes mellitus, chronic lower back pain, reactive airway disease, status post right partial pneumonectomy for lung cancer who comes to the clinic today for her one month follow up. The patient states that she is doing better. Her issues today are: 1. Pain control. The patient states that she has been on Vicodin four times per day since her lung operation in June. She states that at this time her pain is under better control. She had concern because yesterday she had called for a prescription and told Dr. Lynch that she was on Vicodin every four hours and she meant to say 4 times per day. She states that her pain present especially with truncal motion and reaching of her arms and moist prominent right underneath her right breast, but states that it has improved with time into the more tolerable. The patient states the Vicodin has also aided her in coping with her lower back pain. 2. Diabetes mellitus. The patient states that her blood sugars have been well controlled, averaging around 145 over the last month. She is taking her Glucophage and Glipizide and trying hard to watch her diet. 3. The patient relates the good news that her has successfully quit smoking and has been without cigarettes for the last two months, making her smoking cessation and bout with lung cancer easier to deal with. MEDICATIONS: 1. Glucophage 500 milligrams b.i.d. 2. Glipizide amount unknown. 3. Vicodin 500 four times per day. 4. Lipitor 20 milligrams q day. OBJECTIVE: Cooperative female in no acute distress. VITAL SIGNS: Blood pressure 120/80, heart rate 108, respiratory rate 16, weight 155, ABG 259 in clinic. The remainder of the physical examination is deferred . ASSESSMENT: [age] year old female with above stated problems who comes in for her monthly follow up. The patient has no new complaints. She denies any new symptoms with respect to lung disease. 1. Pain management. The patient is currently on four Vicodin per day 500. Time was spent discussing pain management with the patient and the goal of tapering down of 3 per day or even less over the next month was discussed. In addition other pain medications such as Amitriptyline or Neurontin were discussed for future management. 2. Diabetes mellitus. The patient has made a large effort to control her blood sugars. Her last hemoglobin A1C was 12.8, fourteen months ago. Time was spent on diabetes mellitus education. PLAN: 1. Laboratories, hemoglobin A1C, comp metabolic panel to assess BUN and creatinine. Liver function tests to rule out medication side effects. In addition, cholesterol will be obtained. Urinalysis to rule out microalbuminemia and it was recommended that the patient have her eyes examined at her one year date from her prior examination. 2. Preventive medicine. The patient is due for mammography and referral was placed. 3. Exercise program such as water aerobics was recommended to patient for health purposes including improved range of motion and endurance and better control of diabetes mellitus. We will see patient in one month. Emily Harrison, MS-III Dictating for: Eladio Lynch M.D. Finish Mill Operator Family Medicine ROSIE/clari d ocumented in this encounter Plan of Treatment Not on filedocumented as of this encounter Visit Diagnoses Not on filedocumented in this encounter"
--- OUTSIDE RECORDS SUMMARY | ~2020-02-24 | XMS | Encounter Summary ---
Demographics + + + | Address | [address] [place] [address] Ln | | | [place] [address] | + + + | Home Phone [...] | | | | | [place] [address] | | + + + + + Care Team Providers + +------+ + | Care Rock Singer Name | Role | Phone | + [...] | | 2005 | | Medicine at [facility] | [address] | | | | | [place] [address] [facility] | [place], [place] | | | | | [address] | [address] | | | | | Mailcode: MINDY Albarran | [phone] | | | | | [address] | | | | | | [place], [place] | | | | | | [address] | | | | | | [phone] | | | +--------+--------+ + + + [...]
--- OUTSIDE RECORDS SUMMARY | ~2020-02-24 | XMS | Clinical Summary ---
Demographics + + + | Address | [address] [place] [address] Ln | | | [place] [address] | + + + | Home Phone | | + + + | Preferred Language | Unknown | + + + | Marital Status | | + + + | Roman Catholic Affiliation | LINDSAY | + + + | Race | White | + + + | Ethnic Group | Not or | + + + Author + + + | Author | [facility] | + + + | Organization | [facility] | + + + | Address | Unknown | + + + | Phone | Unavailable | + + + Support + + + + + | Name | Relationship | Address | Phone | + + + + + | Jeni Shirley | ECON | [facility] | | | | | [place] [address] | | + + + + + Care Team Providers + +------+ + | Care Radiological Technician Name | Role | Phone | + +------+ + PCP | Unavailable | + +------+ + Source Comments WILY is fully live on both [facility] and [facility] Allergies + + + + + + | Active Allergy | Reactions | Severity | Noted | Comments | | | | | Date | | + + + + + + | Clarification Needed | | | 07/06/19 | MILK,BEES, | | | | | 98 | PCN,BLOOD | + + + + + + | Penicillins | Hives | | 07/14/20 | | | | | | 06 | | + + + + + + Medications + + + +---------+------+------+-------+ | Medication | Sig | Dispensed | Refills | Star | End | Statu | | | | | | t | Date | s | | | | | | Date | | | + + + +---------+------+------+-------+ | ASPIRIN 325 MG | None Entered | | 0 | | | Activ | | ORAL TAB | | | | | | e | + + + +---------+------+------+-------+ | Blood Sugar | use as directed | 100 | 3 | 05/1 | | Activ | | Diagnostic (ONE | | | | 9/20 | | e | | TOUCH ULTRA TEST) In | | | | 08 | | | | Vitro Strip | | | | | | | + + + +---------+------+------+-------+ | Albuterol (Refill) | HFA Inhaler. Inhale | 1 | 12 | 05/1 | | Activ | | 90 mcg/Actuation | 1 puff by | | | 04/26 | | e | | Inhalation Aerosol | inhalation route | | | 08 | | | | | every 4-6 hours as | | | | | | | | needed | | | | | | + + + +---------+------+------+-------+ | lisinopril 10 mg | Take 1 tablet by | 90 | 3 | 06/08 | | Activ | | oral | mouth. | tablet | | 12/24 | | e | | tabletIndications: | | | | 13 | | | | HTN (hypertension) | | | | | | | + + + +---------+------+------+-------+ | insulin glargine | Inject 20 Units | 10 mL | 0 | / | | Activ | | (LANTUS) 100 unit/mL | under the skin | | | 20 | | e | | subcutaneous | (SUBC) once daily at | | | 13 | | | | solutionIndications: | bedtime. | | | | | | | Type II or | | | | | | | | unspecified type | | | | | | | | diabetes mellitus | | | | | | | | without mention of | | | | | | | | complication, not | | | | | | | | stated as | | | | | | | | uncontrolled | | | | | | | + + + +---------+------+------+-------+ | beclomethasone 80 | Inhale 3 puffs three | 8.7 g | 12 | 11/2 | | Activ | | mcg/actuation | times daily. | | | 12/24 | | e | | inhalation Aerosol | | | | 13 | | | | (Aero)Indications: | | | | | | | | COPD (chronic | | | | | | | | obstructive | | | | | | | | pulmonary disease) | | | | | | | | (HCC) | | | | | | | + + + +---------+------+------+-------+ | montelukast | Take 1 tablet by | 30 | 12 | 11/2 | | Activ | | (SINGULAIR) 10 mg | mouth once daily in | tablet | | 20 | | e | | oral | the evening. | | | 13 | | | | tabletIndications: | | | | | | | | COPD (chronic | | | | | | | | obstructive | | | | | | | | pulmonary disease) | | | | | | | | (HCC) | | | | | | | + + + +---------+------+------+-------+ | omeprazole 20 mg | Take 1 capsule by | | 0 | 11/2 | | Activ | | oral capsule,delayed | mouth once daily. | | | 12/24 | | e | | | | | | 13 | | | | release(DR/EC)Indica | | | | | | | | tions: GERD | | | | | | | | (gastroesophageal | | | | | | | | reflux disease) | | | | | | | + + + +---------+------+------+-------+ | busPIRone 10 mg | Take 1 tablet by | | 0 | 11/2 | | Activ | | oral | mouth three times | | | 20 | | e | | tabletIndications: | daily. | | | 13 | | | | Depression | | | | | | | + + + +---------+------+------+-------+ | FLUoxetine 20 mg | Take 1 capsule by | | 0 | 11/2 | | Activ | | oral | mouth once daily. | | | 20 | | e | | capsuleIndications: | | | | 13 | | | | Depression | | | | | | | + + + +---------+------+------+-------+ | MISCELLANEOUS | Home O2. | 1 each | 0 | 12/2 | | Activ | | MEDICAL SUPPLY (RX | | | | /20 | | e | | DURABLE MEDICAL | | | | 13 | | | | EQUIPMENT | | | | | | | | DC)Indications: COPD | | | | | | | | (chronic | | | | | | | | obstructive | | | | | | | | pulmonary disease) | | | | | | | | ([facility]) | | | | | | | + + + +---------+------+------+-------+ | methocarbamol 750 | Take 2 tablets by | 120 | 5 | 02/0 | | Activ | | mg oral tablet | mouth four times | tablet | | 20 | | e | | | daily. | | | 14 | | | + + + +---------+------+------+-------+ | | Take 1 tablet by | 120 | 1 | 03/1 | | Activ | | HYDROcodone-acetamin | mouth every six | tablet | | 120 | | e | | ophen (NORCO) 10-325 | hours as needed. | | | 14 | | | | mg oral | Indications: Pain | | | | | | | tabletIndications: | | | | | | | | pain | | | | | | | + + + +---------+------+------+-------+ | ALPRAZolam 0.25 mg | Take 1 tablet by | 30 | 0 | 03/1 | | Activ | | oral | mouth three times | tablet | | 3/20 | | e | | tabletIndications: | daily. Indications: | | | 14 | | | | anxiety | ANXIETY | | | | | | + + + +---------+------+------+-------+ Active Problems +---------+ + | Problem | Noted Date | +---------+ + | Asthma | 05/16/2005 | +---------+ + + + | Overview: ICD10 | + + + + + | Generalized atherosclerosis | 05/16/2005 | + + + + + | Overview: ICD10 | + + + + + | Backache | 05/16/2005 | + + + + + | Overview: ICD10 | + + + + + | Chronic airway obstruction, not elsewhere classified | 05/16/2005 | + + + | Coronary atherosclerosis | 05/16/2005 | + + + + + | Overview: ICD10 | + + + + + | Depressive disorder, not elsewhere classified | 05/16/2005 | + + + | Type II or unspecified type diabetes mellitus without mention of | 05/16/2005 | | complication, not stated as uncontrolled | | + + + | Essential hypertension | 05/16/2005 | + + + + + | Overview: ICD10 | + + + + + | Pure hypercholesterolemia | 05/16/2005 | + + + | Malignant neoplasm of bronchus and lung, unspecified site | 05/16/2005 | + + + Resolved Problems + + + + | Problem | Noted | Resolved | | | Date | Date | + + + + | Cellulitis and abscess of leg, except foot | 05/16/20 | | | | 05 | 8 | + + + + | Pleurisy | 05/16/20 | | | | 05 | 8 | + + + + + + | Overview: ICD10 | + + Immunizations + + + + | Name | Administration Dates | Next Due | + + + + | Influenza, split | 05/30/2005, 06/05/2003, 05/27/2002 | | + + + + Social History + [...] recent travel history available. | + + Last Filed Vital Signs + + + + + | Vital Sign | Reading | Time Taken | Comments | + + + + + | Blood Pressure | 110/60 | 08/16/2013 2:50 PM | | | | | PST | | + + + + + | Pulse | 84 | 08/16/2013 2:50 PM | | | | | PST | | + + + + + | Temperature | 36.7 C (98 F) | 08/16/2013 2:50 PM | | | | | PST | | + + + + + | Respiratory Rate | 24 | 09/17/2007 1:16 PM | | | | | PST | | + + + + + | Oxygen Saturation | 96% | 07/29/2013 5:56 PM | | | | | PST | | + + + + + | Inhaled Oxygen | - | - | | | Concentration | | | | + + + + + | Weight | 64.4 kg (142 lb) | 08/16/2013 2:50 PM | | | | | PST | | + + + + + | Height | 154.9 cm (5' 1") | 07/23/2007 1:28 PM | | | | | PST | | + + + + + | Body Mass Index | 26.83 | 07/23/2007 1:28 PM | | | | | PST | | + + + + + Plan of Treatment + + + + + | Health Maintenance | Due Date | Last Done | Comments | + + + + + | Diabetic eye exam | | | | | | 3 | | | + + + + + | Monofilament foot | | | | | exam | 3 | | | + + + + + | Urine Drug Screening | | | | | | 8 | | | + + + + + | Hepatitis B | | | | | vaccination (1 of 3 | 2 | | | | - Risk 3-dose | | | | | series) | | | | + + + + + | Mammogram | | 04/01/2004, 12/14/1998 | | | | 6 | | | + + + + + | Osteoporosis | | | | | screening/follow-up | 8 | | | + + + + + | Pneumococcal | | | | | vaccination (1 of 2 | 8 | | | | - PCV13) | | | | + + + + + | Cholesterol | | 01/18/2008, 10/17/2003, | | | screening | 9 | 10/17/2003 | | + + + + + | Hemoglobin A1c | | 07/29/2013, 01/18/2008, | | | | 4 | 11/07/2005, Additional history | | | | | exists | | + + + + + | CONTROLLED SUBSTANCE | | 12/12/2006 | | | AGREEMENT | 4 | | | + + + + + | Creatinine | | 07/29/2013, 01/18/2008, | | | | 4 | 11/07/2005, Additional history | | | | | exists | | + + + + + | LIVER FUNCTION TEST | | 07/29/2013, 01/18/2008, | | | | 4 | 11/07/2005, Additional history | | | | | exists | | + + + + + | Influenza (Flu) | | 06/21/2014 | | | vaccination (#1) | 9 | | | + + + + + Results Not on filefrom Last 3 Months Insurance + +--------+ +--------+ + +--------+ | Payer | Benefi | Subscriber | Effect | Phone | Address | Type | | | t Plan | ID | emil | | | | | | / | | Dates | | | | | | Group | | | | | | + +--------+ +--------+ + +--------+ | MEDICARE | MEDICA | xxxxxxxxxx | 08/07/19 | [phone] | [address] | [address] | | | RE A & | | 08-Pre | 1 | [address] | re | | | B | | sent | | [place], [place] | | | | | | | | [address] | | + +--------+ +--------+ + +--------+ | MEDICAID [place] | OHP | xxxxxxxx | 08/07/19 | [phone] | [address] | [address] | | | PLUS | | 14-Pre | 6 | [address] | id | | | OPEN | | sent | | [place] | | | | CARD | | | | [id number] | | + +--------+ +--------+ + +--------+ + +--------+ +--------+ + + | Guarantor Name | Accoun | Relation to | Date | Phone | Billing Address | | | t Type | Patient | of | | | | | | | | | | + +--------+ +--------+ + + | Martha Toth | Person | Self [birth year] | [address] | | | al/Fam | | 1941 | [phone] | [place] [address] | | | jennifer | | | 2 (Home) | | + +--------+ +--------+ + + Advance Directives + + + + + | Type | Date Recorded | Patient | Explanation | | | | Rolling Mill Operator Helper | | + + + + + | Advance | | | | | Directives and | | | | | Living Will | | | | + + + + + | Power of | | | | | Industrial Truck Mechanic | | | | + + + + +
--- OUTSIDE RECORDS SUMMARY | ~2020-02-24 | XMS | Encounter Summary ---
Demographics + + + | Address | [address] [place] [address] Ln | | | [place] [address] | + + + | Home Phone [...] | | | | | [place] [address] | | + + + + + Care Team Providers + +------+ + | Care Sheet Mill Supervisor Name | Role | Phone | + +------+ + PCP | Unavailable | + +------+ + Encounter Details +--------+ + + + + | Date | Type | Department | Care Team | Description | +--------+ + + + + | 11/17/ | Office | [facility] | Note, [...] as of this encounter Progress Notes Interface, Platform Builder In - 03/05/2005 7:25 PM PDTClinic Date: 11/18/2003 [facility] Subjective: Ms. Toth is here for refill of her controlled substances for chronic back pain. She is using hydrocodone 7.5/750 one p.o. t.i.d. #90. Her problem list also includes reactive airway disease, depression, duu-fbotpdc-phfwxhift diabetes mellitus, social stressors, and occasional insomnia. Objective General: She is in no apparent distress. She is alert and oriented x 4. Vital Signs: Her blood pressure is 104/66, pulse is 104, and weight 166 pounds and stable. CBG this morning 126. Lungs: Clear to auscultation. Cardiac: Regular rate and rhythm. Extremities: Without edema. Assessment and Plan 1. Nhj-dvkhvhh-mgaetftnp diabetes mellitus. Continue current medications. Her last evaluation on October 17, 2003, identified triglycerides of 441 with a cholesterol of 188 and an LDL of 69 and HDL 52. Hemoglobin A1c of 6.9. 2. Chronic pain, refilled current medications. 3. Social stressors. I encouraged Ms. Toth to consider marriage encounter or couple's counseling if possible. She had several barriers to that being productive generally blaming her 's lack of interest. Eladio Lynch M.D. ROSIE / KIMBER[place] [id number] / [id number] / [id number] / [id number] Tdocumented in this encounter Plan of Treatment Not on filedocumented as of this encounter Visit Diagnoses Not on filedocumented in this encounter"
--- OUTSIDE RECORDS SUMMARY | ~2020-02-24 | XMS | Encounter Summary ---
Demographics + + + | Address | [address] [place] [address] Ln | | | [place] [address] | + + + | Home Phone [...] | | | | | [place] [address] | | + + + + + Care Team Providers + +------+ + | Care Mincing Machine Operator Name | Role | Phone | + +------+ + | Eladio Lynch MD | PCP | | + +------+ + Reason for Visit + + + | Reason | Comments | + + + | Follow-up encounter | on diabetes | + + + Encounter Details +--------+---------+ + + + | Date | Type | Department | Care Team | Description | +--------+---------+ + + + | 10/12/ | Office | [facility] Primary Care | Eladio Lynch, | WIL w/o Complication | | 2006 | Visit | at [facility] | [place] [address] | Type II; Cervical | | | | [address] | [facility] [place] | Radiculitis; | | | | [facility] | [address] | Unspecified Backache | | | | and Healing, | [phone] | | | | | Building | | | | | | Floor [place], [place] | | | | | | [address] | | | | | | [phone] | | | +--------+---------+ + + + [...] + + + | Blood Pressure | 114/62 | 10/12/2006 9:52 AM | | | | | PST | | + + + + + | Pulse | 74 | 10/12/2006 9:52 AM | | | | | PST [...] + + + + | Weight | 90.7 kg (200 lb) | 10/12/2006 9:52 AM | | | | | PST | | + + + + + | Height | - | - | | + + + + + | Body Mass Index | 37.48 | 07/14/2006 9:22 AM | | | | | PST | | + + + + + documented in this encounter Progress Eladio Mcclelland - 10/18/2006 9:29 AM PDTFormatting of this note might be different from maninder ren. ID: Martha Toth is a 66 y.o. Female CC: NIDDM, chronic functional back pain HPI: Ms. Toth is is here today for a refil of opoid analgesic [facility]. SHE REALIZES HER MANAGEMENT OF niddm IS SUB- PAR, AND IS WITHOUT INS. PRESENTLY. SHE STATES SHE IS MAINTAINING LOG OF SUGARS BUT LAST hG AIC IS INCONSISTANT WITH NUMBERS REPORTED. She believes she will have ins. @ 67 yo and will present to recatalize good mgmt strategy o f her NIDDM. Physical Examination Blood pressure 114/62, pulse 74, weight 90.719 kg (200 lbs). Patient is alert and oriented times three. Ext - tr edema ASSESSMENT: Encounter Diagnoses Code Name Primary? 250.00 DM w/o Complication Type II 723.4C Cervical Radiculitis 724.5 Unspecified Backache Plan: VICODIN ES 7.5 MG-750 MG TAB Refill current medications per medication care agreement @ [facility] as above. documented in this encoun ter Plan of Treatment Not on filedocumented as of this encounter Visit Diagnoses + + | Diagnosis | + + | Type II or unspecified type diabetes mellitus without mention of complication, not | | stated as uncontrolled | + + | Cervical radiculitis Brachial neuritis or radiculitis nos | + + | Backache, unspecified | + + documented in this encounter"
--- OUTSIDE RECORDS SUMMARY | ~2020-02-24 | XMS | Encounter Summary ---
Demographics + + + | Address | [address] [place] [address] Ln | | | [place] [address] | + + + | Home Phone [...] | | | | | [place] [address] | | + + + + + Care Team Providers + +------+ + | Care Warp Tying Machine Tender Name | Role | Phone [...] Description | +--------+--------+ + + + | 05/10/ | Refill | [place] [facility] | Lynch, Eladio, | Refill Request | | 2006 | | at [facility] | MD [address] | | | | | [address] | [place], [place] | | | | | [facility] | [address] | | | | | and Healing, | [phone] | | | | | Building | | | | | | Floor [facility] [place] | | | | | | [address] | | | | | | [phone] | | | +--------+--------+ + + + [...]
--- OUTSIDE RECORDS SUMMARY | ~2020-02-24 | XMS | Encounter Summary ---
Demographics + + + | Address | [address] [place] [address] Ln | | | [place] [address] | + + + | Home Phone [...] | | | | | [place] [address] | | + + + + + Care Team Providers + +------+ + | Care Industrial Health Engineer Name | Role | Phone | [...] as of this encounter Progress Notes Interface, Model Maker Plaster In - 08/02/2006 5:02 AM PSTCLINIC DATE: 10/30/1998 [facility] SUBJECTIVE: Ms. Toth [...] Harrison, MS-III Dictating for: Eladio Lynch M.D. Teacher Public Health Family Medicine ROSIE/clari d ocumented in this encounter Plan of Treatment Not on filedocumented as of this encounter Visit Diagnoses Not on filedocumented in this encounter"
--- OUTSIDE RECORDS SUMMARY | ~2020-02-24 | XMS | Encounter Summary ---
Demographics + + + | Address | [address] [place] [address] Ln | | | [place] [address] | + + + | Home Phone | | + + + | Preferred Language | Unknown | + + + | Marital Status | | + + + | Mandaen Affiliation | LINDSAY | + + + [...] | | | | | [place] [address] | | + + + + + Care Team Providers + +------+ + | Care Appeals Writer Name | Role | Phone | + +------+ + | Eladio Lynch MD | PCP | | + +------+ + Encounter Details +--------+ + + + + | Date | Type | Department | Care Team | Description | +--------+ + + + + | 09/19/ | Office | [facility] | Note, [...] as of this encounter Progress Notes Interface, Crop Adjuster In - 02/15/2006 1:08 AM PDTCLINIC DATE: 09/19/2002 [facility] SUBJECTIVE: Ms. Toth is a 62-year-old female here today with a medical problem list that includes: 1. Diabetes. 2. Functional back pain. 3. Reactive airway disease. 4. Status post lung malignancy with right lobectomy. 5. Historic intermittent tobacco addiction. Her problem today is concern with her back pain, and she is on a medication care agreement for use of Vicodin 5/500 #120 one p.o. q.i.d. on a monthly basis and receives this bimonthly. ADDITIONAL MEDICATIONS 1. Glipizide 10 mg 2 p.o. b.i.d. 2. Metformin 850 mg t.i.d. 3. Albuterol MDI. 4. Atrovent MDI. 5. Flovent MDI. 6. Nasonex. 7. Soma. 8. Amitriptyline 100 to 150 mg q.h.s. 9. Zantac 150 mg b.i.d. 10. Avandia 4 mg daily. 11. Zoloft 100 mg daily. 12. Claritin 10 mg p.r.n. 13. Aspirin. REVIEW OF SYSTEMS: Noncontributory. PHYSICAL EXAMINATION VITAL SIGNS: Her blood pressure 140/89, pulse is 120, respirations 20, and weight 160 pounds and stable. GENERAL: She is alert and oriented x4. HEENT: She has intact cranial nerves. No carotid bruits. Euthyroid. CARDIAC: Regular rate and rhythm. LUNGS: End expiratory wheezes. There is tenderness over the scar site of her right thorax. NEUROLOGICAL: She is walking without assistance or gait impairment. ASSESSMENT AND PLAN 1. Chronic back pain. Plan: Refill medications x2 months and follow up at that time. 2. Diabetes. We will use next visit to evaluate her annually for her diabetes. 3. Reactive airway disease at baseline. Eladio Lynch M.D. [facility] / [id number] / [id number] / [id number] / [id number] [place], Crop Adjuster In - 02/10/2006 3:11 AM PDTCLINIC DATE: 09/19/2002 [facility] SUBJECTIVE: Ms. Toth is here for refill of her contracted pain medications for chronic back and neck pain. She currently is using Vicodin 5/500 one p.o. q.i.d. with Soma 1 p.o. t.i.d. on a routine basis as well as anti-inflammatories. PROBLEM LIST 1. NIDDM. 2. Reactive airways disease. 3. 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 4. Insomnia. 5. Affective disorder. 6. Allergies. MEDICATIONS 1. Metformin 850 mg t.i.d. 2. Glipizide 10 mg 2 p.o. b.i.d. 3. Avandia 4 mg daily. 4. Albuterol MDI. 5. Atrovent MDI. 6. Flovent 110 MDI. 7. Nasonex. 8. Vicodin 5/500 one p.o. q.i.d. 9. Soma 1 p.o. t.i.d. 10. Amitriptyline 100 to 150 mg q.h.s. 11. Zantac 150 mg b.i.d. 12. Claritin 10 mg p.r.n. 13. Zoloft 100 mg daily. 14. Aspirin 325 mg daily. She is complaining that she has more neuropathic pain in lower extremities as well as along her scar line from a partial pneumonectomy. She recognizes a window where she was unable to afford her medications, and glycemia control was averaging 180 to 240 rather than the standard 120 to 160. REVIEW OF SYSTEMS: Otherwise noncontributory. OBJECTIVE GENERAL: She is currently in no apparent distress. She appears somewhat tired. She is alert. VITAL SIGNS: Her blood pressure 140/89, pulse 120, respirations 20, and weight 160 pounds. HEENT: She has darkened edematous lower lids. Moist mucosa. NECK: She has no carotid bruits. She is euthyroid. CARDIAC: Regular rate and rhythm. LUNGS: Clear to auscultation. EXTRIMITIES: Her lower extremities have no edema. She has gross sensation in 4 quadrants of her feet with an area of numbness on the dorsum. She has no ecchymosis, ulcerations, or signs of fungal infection. ASSESSMENT 1. Bma-stpmkpd-dhkwghdof diabetes mellitus. 2. Chronic pain refilled medications with one refill. PLAN 1. Continue current medications. We will continue to have discussions concerning the possibility of transitionis the insulin which would provide significant cost reduction in her care and would be a option for her provided she maintain glycemia control with her oral medication. Should she fail to accomplish this, I will encourage her with more forcefulness to transition toward insulin which she is somewhat fearful of. 2. Follow up in 2 months' time. Eladio Lynch M.D. [facility] / [id number] / [id number] / [id number] / Tdocumented in this encounter Plan of Treatment Not on filedocumented as of this encounter Visit Diagnoses Not on filedocumented in this encounter"
--- OUTSIDE RECORDS SUMMARY | ~2020-02-24 | XMS | Encounter Summary ---
Demographics + + + | Address | [address] [place] [address] Ln | | | [place] [address] | + + + | Home Phone | | + + + | Preferred Language | Unknown | + + + | Marital Status | | + + + | Yarsani Affiliation | LINDSAY | + + + | Race | White | + + + | Ethnic Group | Not or | + + + Author + + + | Author | [facility] | + + + | Organization | [facility] | + + + | Address | Unknown | + + + | Phone | Unavailable | + + + Support + + + + + | Name | Relationship | Address | Phone | + + + + + | Jeni Shirley | ECON | [place] | | | | | [place] [address] | | + + + + + Care Team Providers + +------+ + | Care Physician Coding Specialist Name | Role | Phone | + +------+ + | Eladio Lynch MD | PCP | | + +------+ + Reason for Visit + + + | Reason | Comments | + + + | COPD - Chronic | | | obstructive | | | pulmonary disease | | + + + | White Blood Cell | | | Count Abnormal | | + + + Encounter Details +--------+ + + + + | Date | Type | Department | Care Team | Description | +--------+ + + + + | 10/08/ | Telephone | [facility] | Eladio Lynch, | COPD - Chronic | | 2013 | | at [facility] | MD [address] | obstructive | | | | [address] | [place], [place] | pulmonary disease; | | | | [facility] | [address] | White Blood Cell | | | | and Healing, | [phone] | Count Abnormal | | | | | | | | | | Floor [place], [place] | | | | | | [address] | | | | | | [phone] | | | +--------+ + + + [...]
--- OUTSIDE RECORDS SUMMARY | ~2020-02-24 | XMS | Encounter Summary ---
Demographics + + + | Address | [id number] [place] [address] Ln | | | [place] [address] | + + + | Home Phone | | + + + | Preferred Language | Unknown | + + + | Marital Status | | + + + | Amish Affiliation | LINDSAY | + + + | Race | White | + + + | Ethnic Group | Not or | + + + Author + + + | Author | [facility] | + + + | Organization | [facility] | + + + | Address | Unknown | + + + | Phone | Unavailable | + + + Support + + + + + | Name | Relationship | Address | Phone | + + + + + | Jeni Shirley | ECON | [place] | | | | | [place] [address] | | + + + + + Care Team Providers + +------+ + | Care Nuclear Plant Operator Name | Role | Phone | [...] + + + + | 08/22/ | Telephone | [facility] | Alannah Saab MD | Follow-up visit | | 2013 | | at [facility] | [address] | | | | | [address] | [place], [place] | | | | | [facility] | [address] | | | | | and Healing, | [phone] | | | | | | | | | | | Floor [place], [place] | | | | | | [address] | | | | | | [phone] | | | +--------+ + + + [...] + | Diagnosis | + + | Post-menopausal bleeding - Primary Postmenopausal bleeding | + + documented in this encounter"
--- OUTSIDE RECORDS SUMMARY | ~2020-02-24 | XMS | Encounter Summary ---
Demographics + + + | Address | [address] [place] [address] Ln | | | [place] [address] | + + + | Home Phone | | + + + | Preferred Language | Unknown | + + + | Marital Status | | + + + | Latter-Day Affiliation | LINDSAY | + + + | Race | White | + + + | Ethnic Group | Not or | + + + Author + + + | Author | [facility] | + + + | Organization | [facility] | + + + | Address | Unknown | + + + | Phone | Unavailable | + + + Support + + + + + | Name | Relationship | Address | Phone | + + + + + | Jeni Shirley | ECON | [place] | | | | | [place] [address] | | + + + + + Care Team Providers + +------+ + | Care It Systems Analyst Consultant Name | Role | Phone | + +------+ + | Eladio Lynch MD | PCP | | + +------+ + Encounter Details +--------+ + + + + | Date | Type | Department | Care Team | Description | +--------+ + + + + | 09/14/ | Ancillary | Registration [id number] | | | | 2007 | Registratio | [address] | | | | | n | [address] Mailcode: [id number] | | | | | | [place], [place] | | | | | | [address] | | | | | | [phone] | | | +--------+ + + + [...]
--- OUTSIDE RECORDS SUMMARY | ~2020-02-24 | XMS | Encounter Summary ---
Demographics + + + | Address | [address] [place] [address] Ln | | | [place] [address] | + + + | Home Phone | | + + + | Preferred Language | Unknown | + + + | Marital Status | | + + + | Church Affiliation | LINDSAY | + + + | Race | White | + + + | Ethnic Group | Not or | + + + Author + + + | Author | [facility] | + + + | Organization | [facility] | + + + | Address | Unknown | + + + | Phone | Unavailable | + + + Support + + + + + | Name | Relationship | Address | Phone | + + + + + | Jeni Shirley | ECON | [place] | | | | | [place] [address] | | + + + + + Care Team Providers + +------+ + | Care Plasma Center Technician Name | Role | Phone | + +------+ + | Eladio Lynch MD | PCP | | + +------+ + Encounter Details +--------+ + + + + | Date | Type | Department | Care Team | Description | +--------+ + + + + | 05/16/ | Ancillary | Registration [id number] | | | | 2004 | Registratio | [address] | | | | | n | [address] Mailcode: [id number] | | | | | | [place], [place] | | | | | | [address] | | | | | | [phone] | | | +--------+ + + + [...]
--- OUTSIDE RECORDS SUMMARY | ~2020-02-24 | XMS | Encounter Summary ---
Demographics + + + | Address | [address] [place] [address] Ln | | | [place] [address] | + + + | Home Phone | | + + + | Preferred Language | Unknown | + + + | Marital Status | | + + + | Jain Affiliation | LINDSAY | + + + | Race | White | + + + | Ethnic Group | Not or | + + + Author + + + | Author | [facility] | + + + | Organization | [facility] | + + + | Address | Unknown | + + + | Phone | Unavailable | + + + Support + + + + + | Name | Relationship | Address | Phone | + + + + + | Jeni Shirley | ECON | [facility] | | | | | [place] [address] | | + + + + + Care Team Providers + +------+ + | Care Admissions Rn Name | Role | Phone | + +------+ + | Eladio Lynch MD | PCP | | + +------+ + Reason for Visit + + + | Reason | Comments | + + + | Lab findings, | needs labs? | | teaching, guidance, | | | and counseling | | + + + Encounter Details +--------+---------+ + + + | Date | Type | Department | Care Team | Description | +--------+---------+ + + + | 01/17/ | Office | [facility] Primary Care | Eladio Lynch, | Unspecified Backache | | 2007 | Visit | at [facility] | MD [address] | (Primary Dx); NIDDM | | | | [address] | [place], [place] | (Non-Insulin | | | | [facility] | [address] | Dependent Diabetes | | | | and Healing, | [phone] | Mellitus); Encounter | | | | | | for Long-Term | | | | Floor [facility] [place] | | (Current) Use of | | | | [address] | | Other Medications | | | | [phone] | | | +--------+---------+ + + + [...] + + + | Blood Pressure | 110/50 | 01/18/2008 7:57 AM | | | | | PDT | | + + + + + | Pulse | 88 | 01/18/2008 7:57 AM | | | | | PDT [...] + + + + | Weight | 83.9 kg (185 lb) | 01/18/2008 7:57 AM | | | | | PDT | | + + + + + | Height | - | - | | + + + + + | Body Mass Index | 34.96 | 07/23/2007 1:28 PM | | | | | PST | | + + + + + documented in this encounter Progress Eladio Mcclelland - 01/27/2008 10:01 AM PDTFormatting of this note might be different from t gonzalez original. ID: Martha Toth is a 67 y.o. female CC: NIDDM, Chronic pain' Encounter Diagnoses Code Name Primary? 724.5 Unspecified Backache Yes Plan: CARISOPRODOL 350 MG TAB, VICODIN ES 7.5 MG-750 MG TAB, VALIUM 5 MG TAB 250.00AN NIDDM (Non-Insulin Dependent Diabetes Mellitus) Plan: LIPID SET (TRIG, T CHOL, HDL, CALC LDL), HEMOGLOBIN A1C, BLOOD, COMPLETE METABOLIC S ET (NA,K,CL,CO2,BUN,CREAT,GLUC,CA,AST,ALT,BILI TOTAL,ALK PHOS,ALB,PROT TOTAL), CBC ONLY V58.69 Encounter for Long-Term (Current) Use of Other Medications I was present for the entire acute history and physical exam with my medical student acting as scribe. Vijay Miller - 01/18/2008 8:30 AM PDT S: Martha Toth is a 67 y.o. Female f/u home blood glucose levels. 1) DM2: checking glucose at home AM fastins-200s, 143 this morning PM before lunch: 53-160 PM before dinner: 64-119 --Taking 30U 70/30 before breakfast and dinner. --Last A1c, was 10.4 in 2005 --Fasting today, no insulin today. --Mild numbness in ulner palm on L; no paresthesias. No changes in vision. 2) Depression: Ongoing, worse since remote lung CA diagnosis and troubles with . Hears "singing in ears," present since to (12 years), worse for last year, not present while i n [place] for recent vacation (as stress was lower). Formerly the singing was Elle/ pleasant music. Now changed, has to do with buddhist, self-related themes, not menacing or commanding. Similar but not same as "hearing a song in head." Mood up/down, sertraline helps . Limited anhedonia. Not sleeping well, better in [place]. Apettite up/down. Concentratio n good. Guilt on/off. Very high stress right now (issues with ). Rest of family very supportive. No family history of hallucinations in children or parents. 3) Resumed TOB since July. 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 Inhale 1 puff by i nhalation route every 4-6 hours as needed 1 12 albuterol 90 mcg/Actuation Inhalation HFA Aerosol Inhaler inhale 1 puff by inhalation r oute every 4-6 hours as needed 17 4 amitriptyline 50 mg Oral Tablet 2 po qhs 60 12 ASPIRIN 325 MG ORAL TAB None Entered Beclomethasone Dipropionate (QVAR) 80 mcg/Actuation Inhalation Aerosol inhale 3 puffs t id 2 12 Blood Sugar Diagnostic (ONE TOUCH ULTRA TEST) In Vitro Strip use as directed 100 3 carisoprodol (SOMA) 350 mg Oral Tablet 1 po qid 120 1 carisoprodol 350 mg Oral Tablet take 1 tablet (350mg) by oral route 3 times per day and at bedtime 120 1 diazepam (VALIUM) 5 mg Oral Tablet prn flying 20 0 furosemide (LASIX) 40 mg Oral Tablet take 1 tablet (40mg) by oral route once daily and 1/2 qhs 50 12 hydrocodone-acetaminophen (VICODIN ES) 7.5-750 mg Oral Tablet 1 po qid 120 1 INSULIN 70/30 70 UNIT-30 UNIT/ML SUSP, SUB-Q INJ inject by subcutaneous route per insul in protocol 20 11 insulin NPH-insulin regular 70-30 100 unit/mL (70-30) Subcutaneous Suspension as direct ed 20 ml 11 Insulin Syringe-Needle U-100 1/2 mL 31 x 5/16" Misc.(Non-Drug; Combo Route) Syringe use bid for insulin SQ. qs 12 lisinopril 10 mg Oral Tablet take 1 tablet (10mg) by oral route once daily 90 3 sertraline 100 mg Oral Tablet take 1 tablet (100 mg) by oral route once daily 30 5 ZOLOFT 100 MG TAB take 1 tablet (100mg) by oral route once daily 30 12 O: BP 110/50 | Pulse 88 | Wt 83.915 kg (185 lbs) Gen: pleasant, near tearful at times, NAD HEENT: sclera anicteric, tympanic membranes clear, oropharynx clear, no lymphadenopathy Pulm: clear to ascultation bilaterally; no wheezes/crackles/rhonchi CV: regular rate and rhythm; no murmers/rubs/gallops Ext: radial/posterior tibial pulses 2+, no edema, no rash Neuro: antalgic gait, mild tremor, sensation intact throughout UE and LE except slight dimi nution at L great toe Psych: mood- "up and down;" affect- full, mood-congruent; memory/attention- WNL; thought co ntent- admits hearing music in ears as described above, but no other audio/visual hallucinat ions, no thoughts of reference or broadcasting, no suicidal/homicidal ideation; thought proc ess- linear; judgement- good, as Martha is seeking to discuss these issues and treat them A/P: 1) DM: currently feeling well and having checking glucose regularly at home. Last HbA1c in 2005 was 10.4. Kidney: 2002 without microalbuminuria. Lipids: 2003 at goal. -HbA1c today -Lipid panel today, fasting -Consider f/u urine microalbumin -According to labs, consider adding oral hypoglycemic 2) Depression: ongoing and similar to past presentations. Greatest source of distress is he r marriage. Co-occuring auditory hallucinations present for long time, worse lately. Not con sistent with disorders of though concerning for other psychotic disorder. No indication of p sychoses in past. -Monitor for changes of audio hallucinations -Continue sertraline -Encourage continued close integration with family -Consider counseling 3) Preventive: CV as above (in DM). Last lizbet 2003, WNL. Last pap 2000, WNL. -Encourage TOB cessation -Due for lizbet, consider pap Scribed fro Dr. Lynch by Vijay dupree MS4. documented in this encou nter Plan of Treatment Not on filedocumented as of this encounter Procedures + +--------+ + + + | Procedure Name | Priori | Date/Time | Associated Diagnosis | Comments | | | ty | | | | + +--------+ + + + | COMPLETE METABOLIC | Routin | 01/18/2008 | NIDDM (Non-Insulin | Results for this | | SET | e | 8:51 AM | Dependent Diabetes | procedure are in the | | (NA,K,CL,CO2,BUN,CRE | | PDT | Mellitus) | results section. | | AT,GLUC,CA,AST,ALT,B | | | | | | OVIDIO TOTAL,ALK | | | | | | PHOS,ALB,PROT TOTAL) | | | | | + +--------+ + + + | CBC ONLY | Routin | 01/18/2008 | NIDDM (Non-Insulin | Results for this | | | e | 8:51 AM | Dependent Diabetes | procedure are in the | | | | PDT | Mellitus) | results section. | + +--------+ + + + | LIPID SET (TRIG, T | Routin | 01/18/2008 | NIDDM (Non-Insulin | Results for this | | CHOL, HDL, CALC LDL) | e | 8:51 AM | Dependent Diabetes | procedure are in the | | | | PDT | Mellitus) | results section. | + +--------+ + + + | HEMOGLOBIN A1C, | Routin | 01/18/2008 | NIDDM (Non-Insulin | Results for this | | BLOOD | e | 8:51 AM | Dependent Diabetes | procedure are in the | | | | PDT | Mellitus) | results section. | + +--------+ + + + documented in this encounter Results CBC ONLY (01/18/2008 8:51 AM PDT) + + + + + + | Component | Value | Ref Range | Performed | Pathologist | | | | | At | Signature | + + + + + + | WHITE CELL | 11.1 (H) | 4.4 - 11.0 K/cu | [facility] | | | COUNT | | mm | DEPARTMENT | | | | | | OF | | | | | | PATHOLOGY | | + + + + + + | RED CELL | 4.31 | 4.00 - 5.20 | [facility] | | | COUNT | | M/cu mm | DEPARTMENT | | | | | | OF | | | | | | PATHOLOGY | | + + + + + + | HEMOGLOBIN | 12.8 | 12.0 - 16.0 | [facility] | | | | | g/dL | DEPARTMENT | | | | | | OF | | | | | | PATHOLOGY | | + + + + + + | HEMATOCRIT | 37.1 | 36.0 - 46.0 % | [facility] | | | | | | DEPARTMENT | | | | | | OF | | | | | | PATHOLOGY | | + + + + + + | MCV | 86.0 | 80.0 - 96.0 fL | [facility] | | | | | | DEPARTMENT | | | | | | OF | | | | | | PATHOLOGY | | + + + + + + | MCHC | 34.5 | 33.4 - 35.5 | [facility] | | | | | g/dL | DEPARTMENT | | | | | | OF | | | | | | PATHOLOGY | | + + + + + + | RDW | 13.9 | 11.5 - 15.0 % | [facility] | | | | | | DEPARTMENT | | | | | | OF | | | | | | PATHOLOGY | | + + + + + + | PLATELET | 367 | 150 - 400 K/cu | [facility] | | | COUNT | | mm | DEPARTMENT | | | | | | OF | | | | | | PATHOLOGY | | + + + + + + + + | Specimen | + + | Blood - Blood | + + + + + + + | Performing | Address | City/State/Zipcode | Phone Number | | Organization | | | | + + + + + | [facility] DEPARTMENT OF | [address] | [place], [place] [address] | | | PATHOLOGY | [address] | | | + + + + + | [facility] DEPARTMENT OF | [address] | [place] [address] | | | PATHOLOGY | [address] | | | + + + + + COMPLETE METABOLIC SET (NA,K,CL,CO2,BUN,CREAT,GLUC,CA,AST,ALT,BILI TOTAL,ALK PHOS,ALB,PROT TOTAL) (01/18/2008 8:51 AM PDT) + +---------+ + + + | Component | Value | Ref Range | Performed | Pathologist | | | | | At | Signature | + +---------+ + + + | GLUCOSE, | 166 (H) | 60 - 99 mg/dL | [facility] | | | PLASMA | | | DEPARTMENT | | | (LAB) | | | OF | | | | | | PATHOLOGY | | + +---------+ + + + | BUN, PLASMA | 20 | 6 - 20 mg/dL | [facility] | | | (LAB) | | | DEPARTMENT | | | | | | OF | | | | | | PATHOLOGY | | + +---------+ + + + | CREATININE | 1.4 (H) | 0.6 - 1.1 mg/dL | [facility] | | | PLASMA | | | DEPARTMENT | | | (LAB) | | | OF | | | | | | PATHOLOGY | | + +---------+ + + + | TOTAL | 7.8 | 6.1 - 7.9 g/dL | [facility] | | | PROTEIN, | | | DEPARTMENT | | | PLASMA | | | OF | | | (LAB) | | | PATHOLOGY | | + +---------+ + + + | ALBUMIN, | 3.7 | 3.5 - 4.7 g/dL | [facility] | | | PLASMA | | | DEPARTMENT | | | (LAB) | | | OF | | | | | | PATHOLOGY | | + +---------+ + + + | CALCIUM, | 9.1 | 8.5 - 10.5 | [facility] | | | PLASMA | | mg/dL | DEPARTMENT | | | (LAB) | | | OF | | | | | | PATHOLOGY | | + +---------+ + + + | BILIRUBIN | 0.5 | 0.3 - 1.2 mg/dL | [facility] | | | TOTAL | | | DEPARTMENT | | | | | | OF | | | | | | PATHOLOGY | | + +---------+ + + + | ALK PHOS | 141 | 53 - 141 U/L | [facility] | | | | | | DEPARTMENT | | | | | | OF | | | | | | PATHOLOGY | | + +---------+ + + + | AST(SGOT) | 27 | 15 - 41 U/L | [facility] | | | | | | DEPARTMENT | | | | | | OF | | | | | | PATHOLOGY | | + +---------+ + + + | SODIUM, | 142 | 136 - 145 | [facility] | | | PLASMA | | mmol/L | DEPARTMENT | | | (LAB) | | | OF | | | | | | PATHOLOGY | | + +---------+ + + + | POTASSIUM, | 4.9 | 3.5 - 5.1 | [facility] | | | PLASMA | | mmol/L | DEPARTMENT | | | (LAB) | | | OF | | | | | | PATHOLOGY | | + +---------+ + + + | CHLORIDE, | 108 (H) | 98 - 107 mmol/L | [facility] | | | PLASMA | | | DEPARTMENT | | | (LAB) | | | OF | | | | | | PATHOLOGY | | + +---------+ + + + | TOTAL CO2, | 27 | 23 - 29 mmol/L | [facility] | | | PLASMA | | | DEPARTMENT | | | (LAB) | | | OF | | | | | | PATHOLOGY | | + +---------+ + + + | ALT (SGPT) | 10 (L) | 13 - 48 U/L | [facility] | | | | | | DEPARTMENT | | | | | | OF | | | | | | PATHOLOGY | | + +---------+ + + + + + | Specimen | + + | Blood - Blood | + + + + + | Narrative | Performed At | + + + | [id number] Estimated GFR = 40 mL/min/1.73 sq m if non- | [facility] | | [place] [id number] Estimated GFR = 49 mL/min/1.73 sq m if | DEPARTMENT OF | | [place] GFR is estimated using the MDRD equation recommended by | PATHOLOGY | | the National Kidney Disease Education Program. Estimated GFR | | | Interpretive Information: <60 mL/min/1.73 sq m Chronic Kidney | | | Disease <15 mL/mon/1.73 sq m Kidney Failure Estimated GFR | | | greater than 60mL/min/1.73 is of limited clinical Value. The MDRD | | | equation is not valid in the following situations: - Patients under | | | 18 years of age - Severe malnutrition or obesity - Vegetarian diet | | | - Rapidly changing kidney function | | + + + + + + + + | Performing | Address | City/State/Zipcode | Phone Number | | Organization | | | | + + + + + | [facility] | [address] | [place] [address] | | | PATHOLOGY | [address] | | | + + + + + | [facility] | [address] | [place] [address] | | | PATHOLOGY | [address] | | | + + + + + HEMOGLOBIN A1C, BLOOD (01/18/2008 8:51 AM PDT) + +---------+ + + + | Component | Value | Ref Range | Performed | Pathologist | | | | | At | Signature | + +---------+ + + + | HEMOGLOBIN | 7.9 (H) | <5.8 % | | | | A1C | | | | | + +---------+ + + + + + | Specimen | + + | Blood - Blood | + + + + + | Narrative | Performed At | + + + | Non-Diabetic: | | | 4.0 - 5.7% Risk For Chronic Complications | | | In Adults: Low | | | <7.0% | | | Medium 7.0-7.9% | | | High >7.9% RLB | | | ([employer] [address] [facility]) [place] [address] | | | [place] [facility]] [place] [address] | | + + + + + + + + | Performing | Address | City/State/Zipcode | Phone Number | | Organization | | | | + + + + + | [facility] | [address] [place] [address] | | | LABORATORY | | | | + + + + + LIPID SET (TRIG, T CHOL, HDL, CALC LDL) (01/18/2008 8:51 AM PDT) + + + + + + | Component | Value | Ref Range | Performed | Pathologist | | | | | At | Signature | + + + + + + | CHOLESTEROL | 194Comment: | <200 mg/dL | [facility] | | | (LAB) | Cholesterol Reference | | DEPARTMENT | | | | Range: | | OF | | | | Desirable: <200 | | PATHOLOGY | | | | Borderline | | | | | | High: 200 - 239 | | | | | | | | | | | | High: >=240 | | | | | | LDL Cholesterol | | | | | | Reference Range: | | | | | | | | | | | | Optimal: <100 | | | | | | Near Optimal: | | | | | | 100 - 129 | | | | | | Borderline High: | | | | | | 130 - 159 | | | | | | High: | | | | | | 160 - 189 | | | | | | Very High: | | | | | | >=190 | | | | + + + + + + | TRIGLYCERID | 271 (H)Comment: | <200 mg/dL | [facility] | | | ES | Triglyceride | | DEPARTMENT | | | | Reference Range: | | OF | | | | | | PATHOLOGY | | | | Normal: <150 | | | | | | Borderline High: | | | | | | 150 - 199 | | | | | | | | | | | | High: 200 - 499 | | | | | | | | | | | | Very High: >=500 | | | | + + + + + + | HDL | 40 (L)Comment: | >40 mg/dL | [facility] | | | CHOLESTEROL | HDL Reference Range: | | DEPARTMENT | | | | High | | OF | | | | Risk: <40 | | PATHOLOGY | | | | Desirable: | | | | | | >=60 | | | | + + + + + + | LDL | 100 | <130 mg/dL | [facility] | | | CHOLESTEROL | | | DEPARTMENT | | | , | | | OF | | | CALCULATED | | | PATHOLOGY | | + + + + + + | VLDL | 54 (H) | <31 mg/dL | [facility] | | | CHOLESTEROL | | | DEPARTMENT | | | , | | | OF | | | CALCULATED | | | PATHOLOGY | | + + + + + + + + | Specimen | + + | Blood - Blood | + + + + + | Narrative | Performed At | + + + | [id number] Estimated GFR = 40 mL/min/1.73 sq m if non- | [facility] | | [place] [id number] Estimated GFR = 49 mL/min/1.73 sq m if | DEPARTMENT OF | | [place] GFR is estimated using the MDRD equation recommended by | PATHOLOGY | | the National Kidney Disease Education Program. Estimated GFR | | | Interpretive Information: <60 mL/min/1.73 sq m Chronic Kidney | | | Disease <15 mL/mon/1.73 sq m Kidney Failure Estimated GFR | | | greater than 60mL/min/1.73 is of limited clinical Value. The MDRD | | | equation is not valid in the following situations: - Patients under | | | 18 years of age - Severe malnutrition or obesity - Vegetarian diet | | | - Rapidly changing kidney function | | + + + + + + + + | Performing | Address | City/State/Zipcode | Phone Number | | Organization | | | | + + + + + | [facility] | [address] | [place] [address] | | | PATHOLOGY | [address] | | | + + + + + | [facility] | [address] | [place] [address] | | | PATHOLOGY | [address] | | | + + + + + documented in this encounter Visit Diagnoses + + | Diagnosis | + + | Backache, unspecified - Primary | + + | NIDDM (non-insulin dependent diabetes mellitus) Type II or unspecified type diabetes | | mellitus without mention of complication, not stated as uncontrolled | + + | Encounter for long-term (current) use of other medications | + + documented in this encounter
--- OUTSIDE RECORDS SUMMARY | ~2020-02-24 | XMS | Encounter Summary ---
Demographics + + + | Address | [address] [place] [address] Ln | | | [place] [address] | + + + | Home Phone | | + + + | Preferred Language | Unknown | + + + | Marital Status | | + + + | Tenriism Affiliation | LINDSAY | + + + | Race | White | + + + | Ethnic Group | Not or | + + + Author + + + | Author | [facility] | + + + | Organization | [facility] | + + + | Address | Unknown | + + + | Phone | Unavailable | + + + Support + + + + + | Name | Relationship | Address | Phone | + + + + + | Jeni Shirley | ECON | [facility] | | | | | [place] [address] | | + + + + + Care Team Providers + +------+ + | Care Articulation Officer Name | Role | Phone | [...] + + | 05/21/ | Office | [facility] Primary Care | Eladio Lynch, | Unspecified Backache | | 2006 | Visit | at [facility] | MD [address] | (Primary Dx) | | | | [address] | [place], [place] | | | | | [facility] | [address] | | | | | and Healing, | [phone] | | | | | | | | | | | Floor [place], [place] | | | | | | [address] | | | | | | [phone] | | | +--------+---------+ + + + [...] current medications per medication care agreement @ [facility], family medicine as above. documented in this encou nter Plan of Treatment Not on filedocumented as of this encounter Visit Diagnoses + + | Diagnosis | + + | Backache, unspecified - Primary | + + documented in this encounter"
--- OUTSIDE RECORDS SUMMARY | ~2020-02-24 | XMS | Encounter Summary ---
Demographics + + + | Address | [address] [place] [address] Ln | | | [place] [address] | + + + | Home Phone | | + + + | Preferred Language | Unknown | + + + | Marital Status | | + + + | Worship Affiliation | LINDSAY | + + + | Race | White | + + + | Ethnic Group | Not or | + + + Author + + + | Author | [facility] | + + + | Organization | [facility] | + + + | Address | Unknown | + + + | Phone | Unavailable | + + + Support + + + + + | Name | Relationship | Address | Phone | + + + + + | Jeni Shirley | ECON | [facility] | | | | | [place] [address] | | + + + + + Care Team Providers + +------+ + | Care Clam Shovel Operator Name | Role | Phone | [...] | +--------+ + + + + | 12/05/ | Patient | [facility] | Eladio Lynch, | Mammography | | 2013 | Outreach | at [facility] | MD [address] | | | | | [address] | [place], [place] | | | | | [facility] | [address] | | | | | and [place], | [phone] | | | | | [facility] | | | | | | Floor [place], [place] | | | | | | [address] | | | | | | [phone] | | | +--------+ + + + [...]
--- OUTSIDE RECORDS SUMMARY | ~2020-02-24 | XMS | Encounter Summary ---
Demographics + + + | Address | [address] [place] [address] Ln | | | [place] [address] | + + + | Home Phone [...] | | | | | [place] [address] | | + + + + + Care Team Providers + +------+ + | Care Heavy Media Operator Name | Role | Phone | [...] as of this encounter Progress Notes Interface, Database Marketing Analyst In - 07/18/2006 3:05 AM PSTCLINIC DATE: 03/26/1999 [facility] SUBJECTIVE: Ms. Toth is here for [...] diagnosis of cancer presented, she returned to [place] from [place] to undergo surgery and therapy which she [...] himself or in partnership either with their faith or not. He apparently is a developed Mu-Ism, spending several hours per week in mosque studies and faith activities but has no time for positive [...] to initiate antidepressive therapy. Eladio Lynch M.D. Copier Technician, Family Medicine [facility] / [id number] / [id number] / [id number] signed by Interface, Database Marketing Analyst In at 07/18/2006 3:05 AM PSTdocume nted in this encounter Plan of Treatment Not on filedocumented as of this encounter Visit Diagnoses Not on filedocumented in this encounter"
--- OUTSIDE RECORDS SUMMARY | ~2020-02-24 | XMS | Encounter Summary ---
Demographics + + + | Address | [address] [place] [address] Ln | | | [place] [address] | + + + | Home Phone | | + + + | Preferred Language | Unknown | + + + | Marital Status | | + + + | Adventist Affiliation | LINDSAY | + + + [...] | | | | | [place] [address] | | + + + + + Care Team Providers + +------+ + | Care Oracle Programmer Analyst Name | Role | Phone | + +------+ + | Unknown | PCP | Unavailable | + +------+ + Encounter Details +--------+ + + + + | Date | Type | Department | Care Team | Description | +--------+ + + + + | 10/30/ | Results | Registration [address] | | | | 1998 | Only | [address] | | | | | | [address] Mailcode: [id number] | | | | | | [place], [place] | | | | | | [address] | | | | | | [phone] | | | +--------+ + + + [...] | CHEMISTRY TESTS 4 | Routin | 10/30/1998 | | Results for this | | | e | 12:15 PM | | procedure are in the | | | | PST | | results section. | + +--------+ + + + | CHEMISTRY TESTS 4 | Routin | 10/30/1998 | | Results for this | | | e | 12:15 PM | | procedure are in the | | | | PST | | results section. | + +--------+ + + + | CHEMISTRY TESTS 2 | Routin | 10/30/1998 | | Results for this | | | e | 12:15 PM | | procedure are in the | | | | PST | | results section. | + +--------+ + + + | URINE CHEMISTRY | Routin | 10/30/1998 | | Results for this | | TESTS | e | 12:15 PM | | procedure are in the | | | | PST | | results section. | + +--------+ + + + documented in this encounter Results URINE CHEMISTRY TESTS (10/30/1998 12:15 PM PST) + + + + + + | Component | Value | Ref Range | Performed | Pathologist | | | | | At | Signature | + + + + + + | MICROALBUMI | 3.8 | mg/L | | | | N, URINE | | | | | | TIMED | | | | | + + + + + + + + | Specimen | + + | | + + + + + + + | Performing | Address | City/State/Zipcode | Phone Number | | Organization | | | | + + + + + | [facility] | [address] | [place] [address] | | | PATHOLOGY | [address] | | | + + + + + CHEMISTRY TESTS 4 (10/30/1998 12:15 PM PST) + + + + + + | Component | Value | Ref Range | Performed | Pathologist | | | | | At | Signature | + + + + + + | HEMOGLOBIN | 11.4 (H) | % | | | | A1C | | | | | + + + + + + + + | Specimen | + + | | + + + + + + + | Performing | Address | City/State/Zipcode | Phone Number | | Organization | | | | + + + + + | [facility] | [address] | [place] [address] | | | PATHOLOGY | [address] | | | + + + + + CHEMISTRY TESTS 2 (10/30/1998 12:15 PM PST) + + + + + + | Component | Value | Ref Range | Performed | Pathologist | | | | | At | Signature | + + + + + + | CHOLESTEROL | 123. (L) | mg/dL | | | | (LAB) | | | | | + + + + + + + + | Specimen | + + | | + + + + + + + | Performing | Address | City/State/Zipcode | Phone Number | | Organization | | | | + + + + + | [facility] | [address] | [place] [address] | | | PATHOLOGY | [address] | | | + + + + + CHEMISTRY TESTS 4 (10/30/1998 12:15 PM PST) + + + + + [...] + + + + | POTASSIUM, | 4.2 | mmol/l | | | | PLASMA | | | | | | (LAB) | | | | | + + + + + + | CHLORIDE, | 93. (L) | mmol/l | | | | PLASMA | | | | | | (LAB) | | | | | + + + + + + | TOTAL CO2, | 32. (H) | mmol/l | | | | PLASMA | | | | | | (LAB) | | | | | + + + + + + | BUN, PLASMA | 14. | mg/dL | | | | (LAB) | | | | | + + + + + + | CREATININE | 1. | mg/dL | | | | PLASMA | | | | | | (LAB) | | | | | + + + + + + | GLUCOSE, | 221. (H) | mg/dL | | | | PLASMA | | | | | | (LAB) | | | | | + + + + + + | CALCIUM, | 10.1 | mg/dL | | | | PLASMA | | | | | | (LAB) | | | | | + + + + + + | AST(SGOT) | 15. | U/L | | | + + + + + + | ALT (SGPT) | 10. | U/L | | | + + + + + + | ALK PHOS | 109. (H) | U/L | | | + + + + + + | BILIRUBIN | 0.1 | mg/dL | | | | DIRECT | | | | | + + + + + + | BILIRUBIN | 0.3 | mg/dL | | | | TOTAL [...] | + + + + + | [facility] | [address] | [place] [address] | | | PATHOLOGY | [address] | | | + + + + + documented in this encounter Visit Diagnoses Not on filedocumented in this encounter"
--- OUTSIDE RECORDS SUMMARY | ~2020-02-24 | XMS | Encounter Summary ---
Demographics + + + | Address | [address] | | | [place] [address] | + + + | Home Phone | | + + + | Preferred Language | Unknown | + + + | Marital Status | | + + + | Restoration Affiliation | 1041 | + + + | Race | Unknown | + + + | Ethnic Group | Unknown | + + + Author + + + | Author | [facility] | | | and [place] | + + + | Organization | [facility] | | | [...] Team Providers + +------+ + | Care Pile Trimmer Name | Role | Phone | + +------+ + | Krista Alvarez | PCP | | | PA | | | + +------+ + Encounter Details +--------+ + + + + | Date | Type | Department | Care Team | Description | +--------+ + + + + | 09/29/ | Orders Only | [facility] | Off[place], | Obstructive chronic | | 2014 | | PULMONARY [address] | Lety Lynch MD | bronchitis with | | | | [place], | | acute bronchitis | | | | [place] [address] | | ([facility]) (Primary Dx) | | | | [phone] | | | +--------+ + + + [...] on filedocumented as of this encounter Results PFT PULMONARY FUNCTION TESTING ORDERS Full PFT (Song w/BD, lung volumes, diffusion)?: Yes (12/25/2014 3:57 PM PDT) + + + | Narrative | Performed At | + + + | Lety Gallego MD 12/25/2014 15:57 PULMONARY | | | FUNCTION TESTING METHOD: Spirometry was obtained pre and post | | | administration of inhaled bronchodilator. Diffusion capacity was | | | obtained by single breath method and was not corrected for a | | | measured hemoglobin. Lung volume testing was not done due to | | | claustrophobia. ATS standards were met. SPIROMETRY: Prior to | | | administration of inhaled bronchodilator, FVC was mildly reduced at | | | 1.97 L or 77% of predicted. FEV1 was mildly reduced at 1.27 L or 65% | | | of predicted. FEV1/FVC ratio was reduced at 65%. After | | | administration of inhaled bronchodilator, FVC increased by 3% to | | | 2.04 L or 79% of predicted. FEV1 increased by 3% to 1.32 L or 67% of | | | predicted. FEV1/FVC ratio was reduced at 65%. DIFFUSION | | | CAPACITY: Diffusion capacity was moderately reduced at 10.4 mL/mmHg | | | per minute or 48% of predicted and was not corrected for a measured | | | hemoglobin. IMPRESSION: Spirometry is consistent with moderate | | | obstructive physiology. There was not a significant response to | | | inhaled bronchodilator. Diffusion capacity is moderately reduced and | | | is not corrected for measured hemoglobin. Electronically signed | | | by: Lety Gallego MD 12/25/2014 15:49 [facility] | | | [facility] CC: Krista Edmondson | | + + + documented in this encounter Visit Diagnoses + + | Diagnosis | + + | Obstructive chronic bronchitis with acute bronchitis (HCC) - Primary Obstructive | | chronic bronchitis with acute bronchitis | + + documented in this encounter"
--- OUTSIDE RECORDS SUMMARY | ~2020-02-24 | XMS | Encounter Summary ---
Demographics + + + | Address | [address] [place] [address] Ln | | | [place] [address] | + + + | Home Phone [...] + + | Author | [facility] | + + + | Organization | [facility] | + + + | Address | Unknown | + + + | Phone | Unavailable | + + + Support + + + + + | Name | Relationship | Address | Phone | + + + + + | Jeni Shirley | ECON | UA | | | | | [place] [address] | | + + + + + Care Team Providers + +------+ + | Care Coal Feeder Operator Name | Role | Phone | + +------+ + | Eladio Lynch MD | PCP | | + +------+ + Reason for Visit + + + | Reason | Comments | + + + | Annual health | | | maintenance | | | examination | | + + + | Lump | lump taaken out left arm | + + + | Medication | | | management | | + + + Encounter Details +--------+---------+ + + + | Date | Type | Department | Care Team | Description | +--------+---------+ + + + | 03/13/ | Office | [facility] | Eladio Lynch, | Unspecified Backache | | 2005 | Visit | Medicine at [facility] | [address] | (Primary Dx); SOB | | | | [place] [address] | [place], [place] | (Shortness of | | | | [address] | [address] | Breath) | | | | Mailcode: [place] [address] | [phone] | | | | | [address] | | | | | | [place], [place] | | | | | | [address] | | | | | | [phone] | | | +--------+---------+ + + + [...] + | Blood Pressure | 110/58 | 03/13/2006 2:14 PM | | | | | PDT | | + + + + + | Pulse | 88 | 03/13/2006 2:14 PM | | | | | PDT | | + + + + + | Temperature | - | - | | + + + + + | Respiratory Rate | 18 | 03/13/2006 2:14 PM | | | | | PDT | | + + + + + | Oxygen Saturation | - | - | | + + + + + | Inhaled Oxygen | - | - | | | Concentration | | | | + + + + + | Weight | 81.4 kg (179 lb 6.4 | 03/13/2006 2:14 PM | | | | oz) | PDT | | + + + + + | Height | - | - | | + + + + + | Body Mass Index | - | - | | + + + + + documented in this encounter Progress Eladio Mcclelland - 03/13/2006 3:26 PM PDTMs. Toth presents complaining of progressive s hortness of breath. Since returning from [place] 2 weeks ago, she has noticed an increas e in her wheezing. Today for example, she is out of breath upon returning from the restroom . She describes sharp pain just underneath her ribs bilaterally. She denies any fevers or chills. She is using her Albuterol and QVAR inhalers, and her nebulizer with minimal relief . She voices some concern about mixing her inhalers. She is using her QVAR inhaler for acut e SOB episodes rather than the prescribed 3 puffs TID. She was using previously prescribed oxygen with some relief, but has stopped this within the last few days. Exam: Lung: inspiratory wheeze in Right middle lung field. CV: RRR, no MGR Abdomen: R epigastric tenderness with light palpation Ext: no edema H4Rnl=39% RSD=823 A/P: Ms. Toth is a 65yo woman with worsening shortness of breath for the last 2 weeks. She appears to be in no acute distress. Patient was advised that her Albuterol should be us ed acutely, and the QVAR works as a correction steroid. This may help her symptoms. We also refilled her prescriptions for vicadin and soma. She is advised to call if her symptoms ch gudelia or get worse. documented in this en counter Plan of Treatment Not on filedocumented as of this encounter Visit Diagnoses + + | Diagnosis | + + | Backache, unspecified - Primary | + + | SOB (shortness of breath) Shortness of breath | + + documented in this encounter"
--- OUTSIDE RECORDS SUMMARY | ~2020-02-24 | XMS | Encounter Summary ---
Demographics + + + | Address | [address] [place] [address] Ln | | | [place] [address] | + + + | Home Phone | | + + + | Preferred Language | Unknown | + + + | Marital Status | | + + + | Scientologist Affiliation | LINDSAY | + + + [...] | | | | | [place] [address] | | + + + + + Care Team Providers + +------+ + | Care Cash Management Officer Name | Role | Phone | [...] [id number] | | | | | | [place], [place] | | | | | | [address] | | | | | | [phone] | | | +--------+ + + + [...]
--- OUTSIDE RECORDS SUMMARY | ~2020-02-24 | XMS | Encounter Summary ---
Demographics + + + | Address | [address] [place] [address] Ln | | | [place] [address] | + + + | Home Phone | | + + + | Preferred Language | Unknown | + + + | Marital Status | | + + + | Shinto Affiliation | LINDSAY | + + + | Race | White | + + + | Ethnic Group | Not or | + + + Author + + + | Author | [facility] | + + + | Organization | [facility] | + + + | Address | Unknown | + + + | Phone | Unavailable | + + + Support + + + + + | Name | Relationship | Address | Phone | + + + + + | Jeni Shirley | ECON | UA | | | | | [place] [address] | | + + + + + Care Team Providers + +------+ + | Care School Administrator Name | Role | Phone | + [...] Description | +--------+--------+ + + + | 06/08/ | Refill | [facility] | Lynch, Eladio, | Refill Request | | 2006 | | at [facility] | MD [address] | | | | | [address] | [place], [place] | | | | | [facility] | [address] | | | | | and Healing, | [phone] | | | | | Building | | | | | | Floor [facility] [place] | | | | | | [address] | | | | | | [phone] | | | +--------+--------+ + + + [...]
--- OUTSIDE RECORDS SUMMARY | ~2020-02-24 | XMS | Encounter Summary ---
Demographics + + + | Address | [address] [place] [address] Ln | | | [place] [address] | + + + | Home Phone | | + + + | Preferred Language | Unknown | + + + | Marital Status | | + + + | Rastafarian Affiliation | LINDSAY | + + + | Race | White | + + + | Ethnic Group | Not or | + + + Author + + + | Author | [facility] | + + + | Organization | [facility] | + + + | Address | Unknown | + + + | Phone | Unavailable | + + + Support + + + + + | Name | Relationship | Address | Phone | + + + + + | Jeni Shirley | ECON | UA | | | | | [place] [address] | | + + + + + Care Team Providers + +------+ + | Care Prosthetic Aides Teacher Name | Role | Phone | [...] as of this encounter Progress Notes Interface, Complaint Evaluation Officer In - 07/13/2006 1:07 AM PSTCLINIC DATE: 06/16/1999 [facility] PROBLEM 1. Fall. 2. Low back pain, [...] Cardenas M.D. LARS / KIMBERLEY 6178 / [id number] / [id number] / Tdocumented in this encounter Plan of Treatment Not on filedocumented as of this encounter Visit Diagnoses Not on filedocumented in this encounter"
--- OUTSIDE RECORDS SUMMARY | ~2020-02-24 | XMS | Encounter Summary ---
Demographics + + + | Address | [address] [place] [address] Ln | | | [place] [address] | + + + | Home Phone | | + + + | Preferred Language | Unknown | + + + | Marital Status | | + + + | Lutheran Affiliation | LINDSAY | + + + | Race | White | + + + | Ethnic Group | Not or | + + + Author + + + | Author | [facility] | + + + | Organization | [facility] | + + + | Address | Unknown | + + + | Phone | Unavailable | + + + Support + + + + + | Name | Relationship | Address | Phone | + + + + + | Jeni Shirley | ECON | UA | | | | | [place] [address] | | + + + + + Care Team Providers + +------+ + | Care Supply And Distribution Manager Name | Role | Phone | [...] Description | +--------+--------+ + + + | 10/15/ | Refill | [facility] | Lynch, Eladio, | Refill Request | | 2013 | | at [facility] | MD [address] | | | | | [address] | [place], [place] | | | | | [facility] | [address] | | | | | and Healing, | [phone] | | | | | Building | | | | | | Floor [facility] [place] | | | | | | [address] | | | | | | [phone] | | | +--------+--------+ + + + [...]
--- OUTSIDE RECORDS SUMMARY | ~2020-02-24 | XMS | Encounter Summary ---
Demographics + + + | Address | [address] [place] [address] Ln | | | [place] [address] | + + + | Home Phone | | + + + | Preferred Language | Unknown | + + + | Marital Status | | + + + | Pentecostalism Affiliation | LINDSAY | + + + [...] | | | | | [place] [address] | | + + + + + Care Team Providers + +------+ + | Care Wage And Salary Specialist Name | Role | Phone | + +------+ + PCP | Unavailable | + +------+ + Encounter Details +--------+ + + + + | Date | Type | Department | Care Team | Description | +--------+ + + + + | 03/19/ | Results | [facility] | Eladio Lynch, | | | 2003 | Only | Medicine at [facility] | [address] | | | | | [place] [address] | [place], [place] | | | | | [address] | [address] | | | | | Mailcode: MINDY Albarran | [phone] | | | | | [address] | | | | | | [place], [place] | | | | | | [address] | | | | | | [phone] | | | +--------+ + + + [...] + | COMPLETE METABOLIC | Routin | 03/19/2004 | | Results for this | | SET | e | 9:30 AM | | procedure are in the | | (NA,K,CL,CO2,BUN,CRE | | PDT | | results section. | | AT,GLUC,CA,AST,ALT,B | | | | | | OVIDIO TOTAL,ALK | | | | | | PHOS,ALB,PROT TOTAL) | | | | | + +--------+ + + + | CBC ONLY | Routin | 03/19/2004 | | Results for this | | | e | 9:30 AM | | procedure are in the | | | | PDT | | results section. | + +--------+ + + + | TSH | Routin | 03/19/2004 | | Results for this | | | e | 9:30 AM | | procedure are in the | | | | PDT | | results section. | + +--------+ + + + | HEMOGLOBIN A1C, | Routin | 03/19/2004 | | Results for this | | BLOOD | e | 9:30 AM | | procedure are in the | | | | PDT | | results section. | + +--------+ + + + documented in this encounter Results TSH-THYROID STIM HORMONE (03/19/2004 9:30 AM PDT) + + + + + + | Component | Value | Ref Range | Performed | Pathologist | | | | | At | Signature | + + + + + + | TSH | 0.97Comment: Test | 0.28 - 5.00 | | | | | performed by [facility] | uIU/ml | | | | | [facility] | | | | | | [facility]. | | | | + + + + + + + + | Specimen | + + | | + + + + + + + | Performing | Address | City/State/Zipcode | Phone Number | | Organization | | | | + + + + + | [facility] | [address] | [place] [address] | | | LABORATORY | | | | + + + + + HEMOGLOBIN A1C (03/19/2004 9:30 AM PDT) + + + + + + | Component | Value | Ref Range | Performed | Pathologist | | | | | At | Signature | + + + + + + | HEMOGLOBIN | 6.4 (H)Comment: | <5.8 % | | | [...] by | | | | | | [facility] | | | | | | [facility]. | | | | + + + + + + + + | Specimen | + + | | + + + + + + + | Performing | Address | City/State/Zipcode | Phone Number | | Organization | | | | + + + + + | [facility] | [address] | [place] [address] | | | LABORATORY | | | | + + + + + CBC ONLY WITH PLATELET (03/19/2004 9:30 AM PDT) + + + + + + | Component | Value | Ref Range | Performed | Pathologist | | | | | At | Signature | + + + + + + | WHITE CELL | 7.9 | 4.4 - 11.0 K/cu | [facility] | | | COUNT | | mm | DEPARTMENT | | | | | | OF | | | | | | PATHOLOGY | | + + + + + + | RED CELL | 3.90 | 3.65 - 5.10 | [facility] | | | COUNT | | M/cu mm | DEPARTMENT | | | | | | OF | | | | | | PATHOLOGY | | + + + + + + | HEMOGLOBIN | 10.5 (L) | 11.4 - 15.0 | [facility] | | | | | g/dL | DEPARTMENT | | | | | | OF | | | | | | PATHOLOGY | | + + + + + + | HEMATOCRIT | 31.4 (L) | 33.0 - 44.6 % | [facility] | | | | | | DEPARTMENT | | | | | | OF | | | | | | PATHOLOGY | | + + + + + + | MCV | 80.5 | 80.0 - 96.0 fL | [facility] | | | | | | DEPARTMENT | | | | | | OF | | | | | | PATHOLOGY | | + + + + + + | MCH | 26.9 (L) | 29.0 - 32.0 pg | [facility] | | | | | | DEPARTMENT | | | | | | OF | | | | | | PATHOLOGY | | + + + + + + | MCHC | 33.4 | 33.4 - 35.5 | [facility] | | | | | g/dL | DEPARTMENT | | | | | | OF | | | | | | PATHOLOGY | | + + + + + + | RDW | 14.2 | 11.5 - 15.0 % | [facility] | | | | | | DEPARTMENT | | | | | | OF | | | | | | PATHOLOGY | | + + + + + + | PLATELET | 373 | 150 - 400 K/cu | [facility] | | | COUNT | | mm | DEPARTMENT | | | | | | OF | | | | | | PATHOLOGY | | + + + + + + | MPV | 9.8 | 7.4 - 10.4 fL | [facility] | | | | [...] + + + + + | [facility] | [address] [facility] | [place] [address] | | | PATHOLOGY | [address] | | | + + + + + | [facility] | [address] [facility] | [place] [address] | | | PATHOLOGY | [address] | | | + + + + + COMP METABOLIC SET (03/19/2004 9:30 AM PDT) + +---------+ + + + | Component | Value | Ref Range | Performed | Pathologist | | | | | At | Signature | + +---------+ + + + | GLUCOSE, | 153 (H) | 65 - 110 mg/dL | [facility] | | | PLASMA | | | DEPARTMENT | | | (LAB) | | | OF | | | | | | PATHOLOGY | | + +---------+ + + + | BUN, PLASMA | 30 (H) | 6 - 20 mg/dL | [facility] | | | (LAB) | | | DEPARTMENT | | | | | | OF | | | | | | PATHOLOGY | | + +---------+ + + + | CREATININE | 0.9 | 0.6 - 1.1 mg/dL | [facility] | | | PLASMA | | | DEPARTMENT | | | (LAB) | | | OF | | | | | | PATHOLOGY | | + +---------+ + + + | TOTAL | 7.1 | 6.1 - 7.9 g/dL | [facility] [...] + + + | ALK PHOS | 84 | 53 - 141 U/L | [facility] | | | | | | DEPARTMENT | | | | | | OF | | | | | | PATHOLOGY | | + +---------+ + + + | AST(SGOT) | 23 | 15 - 41 U/L | [facility] [...] +---------+ + + + | POTASSIUM, | 3.6 | 3.5 - 5.1 | [facility] | | | PLASMA | | mmol/L | DEPARTMENT | | | (LAB) | | | OF | | | | | | PATHOLOGY | | + +---------+ + + + | CHLORIDE, | 101 | 98 - 107 mmol/L | [facility] | | | PLASMA | | | DEPARTMENT | | | (LAB) | | | OF | | | | | | PATHOLOGY | | + +---------+ + + + | TOTAL CO2, | 26 | 23 - 29 mmol/L | [facility] | | | PLASMA | | | DEPARTMENT | | | (LAB) | | | OF | | | | | | PATHOLOGY | | + +---------+ + + + | ALT (SGPT) | 12 (L) | 13 - 48 U/L | [...] + + | [facility] DEPARTMENT OF | [address] | [place] [address] | | | PATHOLOGY | [address] | | | + + + + + | [facility] | [address] | [place] [address] | | | PATHOLOGY | [address] | | | + + + + + documented in this encounter Visit Diagnoses Not on filedocumented in this encounter"
--- OUTSIDE RECORDS SUMMARY | ~2020-02-24 | XMS | Encounter Summary ---
Demographics + + + | Address | [address] [place] [address] Ln | | | [place] [address] | + + + | Home Phone [...] | | | | | [place] [address] | | + + + + + Care Team Providers + +------+ + | Care Scale And Skip Car Operator Name | Role | Phone | [...] | 2004 | Visit-ECX | Medicine at [facility] | [address] | | | | | [place] | [place], [place] | | | | | [address] | [address] | | | | | Mailcode: MINDY Albarran | [phone] | | | | | [address] | | | | | | [place], [place] | | | | | | [address] | | | | | | [phone] | | | +--------+ + + + [...]
--- OUTSIDE RECORDS SUMMARY | ~2020-02-24 | XMS | Encounter Summary ---
Demographics + + + | Address | [address] [place] [address] Ln | | | [place] [address] | + + + | Home Phone [...] | | | | | [place] [address] | | + + + + + Care Team Providers + +------+ + | Care Underwriting Manager Name | Role | Phone | [...] | | [address] | [place], [place] | | | | | [facility] | [address] | | | | | and Healing, | [phone] | | | | | Building | | | | | | Floor [facility] [place] | | | | | | [address] | | | | | | [phone] | | | +--------+--------+ + + + [...]
--- OUTSIDE RECORDS SUMMARY | ~2020-02-24 | XMS | Encounter Summary ---
Demographics + + + | Address | [address] [place] [address] Ln | | | [place] [address] | + + + | Home Phone [...] | | | | | [place] [address] | | + + + + + Care Team Providers + +------+ + | Care Medical Office Assistant Instructor Name | Role | Phone | + [...] [id number] | | | | | | [place], [place] | | | | | | [address] | | | | | | [phone] | | | +--------+ + + + [...] | + + + + + | [facility] DEPARTMENT | [address] | [place] [address] | | | PATHOLOGY | [address] [...] | + + + + + | [facility] | [address] | [place] [address] | | | PATHOLOGY | [address] [...] | + + + + + | [facility] | [address] | [place] [address] | | | PATHOLOGY | [address] [...] | + + + + + | [facility] | [address] | [place] [address] | | | PATHOLOGY | [address] [...] | + + + + + | [facility] | [address] | [place] [address] | | | PATHOLOGY | [address] [...] | + + + + + | [facility] | [address] | [place] [address] | | | PATHOLOGY | [address] | | | + + + + + documented in this encounter Visit Diagnoses Not on filedocumented in this encounter"
--- OUTSIDE RECORDS SUMMARY | ~2020-02-24 | XMS | Encounter Summary ---
Demographics + + + | Address | [address] [place] [address] Ln | | | [place] [address] | + + + | Home Phone | | + + + | Preferred Language | Unknown | + + + | Marital Status | | + + + | Uatsdin Affiliation | LINDSAY | + + + [...] | | | | | [place] [address] | | + + + + + Care Team Providers + +------+ + | Care Dissolver Operator Name | Role | Phone | + +------+ + | Eladio Lynch MD | PCP | | + +------+ + Reason for Visit + + + | Reason | Comments | + + + | Follow-up visit | for refill meds pt blood sugar was 104 today tested at home | + + + Encounter Details +--------+---------+ + + + | Date | Type | Department | Care Team | Description | +--------+---------+ + + + | 11/18/ | Office | [facility] | Eladio Lynch, | Unspecified Backache | | 2007 | Visit | at [facility] | MD [address] | (Primary Dx) | | | | [address] | [place], [place] | | | | | [facility] | [address] | | | | | and Healing, | [phone] | | | | | | | | | | | Floor [place], [place] | | | | | | [address] | | | | | | [phone] | | | +--------+---------+ + + + [...] + + + | Blood Pressure | 78/40 | 11/19/2007 2:57 PM | | | | | PDT | | + + + + + | Pulse | 54 | 11/19/2007 2:57 PM | | | | | PDT [...] + + + + | Weight | 84.4 kg (186 lb) | 11/19/2007 2:57 PM | | | | | PDT | | + + + + + | Height | - | - | | + + + + + | Body Mass Index | 35.14 | 07/23/2007 1:28 PM | | | | | PST | | + + + + + documented in this encounter Progress Notes Len Urrutia - 11/19/2007 3:01 PM PDT ID: Martha Toth is a 67 y.o. Female CC: Medication review. HPI: None. MEDS: No problems with current medications. Current outpatient prescriptions : furosemide (LASIX) 40 mg Oral Tablet, take 1 tablet (40m g) by oral route once daily and 1/2 qhs, Disp: 50, Rfl: 12 insulin NPH-insulin regular 70-30 100 unit/mL (70-30) Subcutaneous Suspension, as directed, Disp: 20 ml , Rfl: 11 carisoprodol (SOMA) 350 mg Oral Tablet, 1 po qid, Disp: 120, Rfl: 1 hydrocodone-acetaminophen (VICODIN ES) 7.5-750 mg Oral Tablet, 1 po qid, Disp: 120, Rfl: 1 Insulin Syringe-Needle U-100 1/2 mL 31 x 5/16" Misc.(Non-Drug; Combo Route) Syringe, use bi d for insulin SQ., Disp: qs, Rfl: 12 Sertraline HCl 100 mg Oral Tablet, take 1 tablet (100 mg) by oral route once daily, Disp: 3 0, Rfl: 5 Albuterol (Refill) 90 mcg/Actuation Inhalation Aerosol, HFA Inhaler. Inhale 1 puff by inha lation route every 4-6 hours as needed, Disp: 1, Rfl: 12 Carisoprodol 350 mg Oral Tablet, take 1 tablet (350mg) by oral route 3 times per day and at bedtime, Disp: 120, Rfl: 1 Beclomethasone Dipropionate (QVAR) [...] route once daily, Disp: 30, Rfl: 12 INSULIN 70/30 70 UNIT-30 UNIT/ML SUSP, SUB-Q INJ, inject by subcutaneous route per insulin protocol, Disp: 20, Rfl: 11 ATIVAN 0.5 MG TAB, take 2 tablets [...] ORAL TAB, None Entered, Disp: , Rfl: SH: 5 cigarrettes a day for the last few months. Trying to quit again but is not sure when she will stop smoking all together. PE: Filed Vitals: 11/19/2007 2:57 PM BP: 78/40 Pulse: 54 Weight: 84.369 kg (186 lbs) ASSESSMENT: Martha appears to be in good health today except for her chronic back pain. PLAN: Reestablish diabetic monitoring. Lab workup will be done during next appointment in 2 months. Scribed by Jermaine Urrutia for Dr. Lynch. I reviewed Jermaine Urrutia 's note with the patient, editted it ,and performed focused aspects of the physical exam in order to derive at the present assessment and plan.Electronically sign ed by Eladio Lynch at 12/05/2007 8:29 AM PDTdocumented in this encounter Plan of Treatment Not on filedocumented as of this encounter Visit Diagnoses + + | Diagnosis | + + | Backache, unspecified - Primary | + + documented in this encounter
--- OUTSIDE RECORDS SUMMARY | ~2020-02-24 | XMS | Encounter Summary ---
Demographics + + + | Address | [address] | | | [place] [address] | + + + | Home Phone | | + + + | Preferred Language | Unknown | + + + | Marital Status | | + + + | Orthodox Affiliation | 1041 | + + + | Race | Unknown | + + + | Ethnic Group | Unknown | + + + Author + + + | Author | [facility] | | | and [place] | + + + | Organization | [facility] | | | and [...] Team Providers + +------+ + | Care Suction Worker Name | Role | Phone | + +------+ + | Krista Alvarez | PCP | | | PA | | | + +------+ + Encounter Details +--------+ + + + + | Date | Type | Department | Care Team | Description | +--------+ + + + + | 02/13/ | Orders Only | [facility] | [place]oc[place] | Iron deficiency | | 2014 | | [facility] | I, 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 | | | | | [address] | | | | | | [place] | | | | | | [address] | | | | | | [phone] | | | +--------+ + + + + Social History + + + +--------+ + | Tobacco Use | Types | Packs/Day | Years | Date | | | | | Used | | + + + +--------+ + | Current Some Day | Cigarettes | 0.5 | 60 | Quit: 10/19/2014 | | Smoker | | | | | + + + +--------+ + + +---+---+---+ | Smokeless Tobacco: | | | | | Never Used | | | | + +---+---+---+ + + | Comments: has an occasional 1/2 cigarette | + + + + +---------+ + [...] | + +--------+ + + + | FERRITIN | Routin | 02/13/2015 | Iron deficiency | Results for this | | | e | 1:52 PM | | procedure are in the | | | | PDT | | results section. | + +--------+ + + + documented in this encounter Results Ferritin (02/13/2015 1:52 PM PDT) + +-------+ + + + | Component | Value | Ref Range | Performed | Pathologist | | | | | At | Signature | + +-------+ + + + | FERRITIN | 45 | 11-<307 ng/mL | [facility] | | | | | | [facility] | | [facility] | | [facility] - | | | | | | [facility]ATORY | | + +-------+ + + + + + | Specimen | + + | Blood | + + + + + + + | Performing | Address | City/State/Zipcode | Phone Number | | Organization | | | | + + + + + | [facility] | [address] | [place] | [phone] | | [facility] | | [address] | | | - LABORATORY | | | | + + + + + documented in this encounter Visit Diagnoses + + | Diagnosis | + + | Iron deficiency Other disorders of iron metabolism | + + documented in this encounter"
--- OUTSIDE RECORDS SUMMARY | ~2020-02-24 | XMS | Encounter Summary ---
Demographics + + + | Address | [address] [place] [address] Ln | | | [place] [address] | + + + | Home Phone | | + + + | Preferred Language | Unknown | + + + | Marital Status | | + + + | Faith Affiliation | LINDSAY | + + + [...] | | | | | [place] [address] | | + + + + + Care Team Providers + +------+ + | Care Senior Cisco Network Engineer Name | Role | Phone | + +------+ + PCP | Unavailable | + +------+ + Encounter Details +--------+ + + + + | Date | Type | Department | Care Team | Description | +--------+ + + + + | 01/20/ | Office | [facility] | Note, [...] as of this encounter Progress Notes Interface, Android Ios Developer In - 03/06/2005 6:20 AM PDTClinic Date: 01/21/2004 [facility] Subjective: Ms. Toth is here today for check up with her diabetes mellitus. She does have occasional lows down to 40 and ranges up to 165 on her CBGs, today's is 82. Current Medications: Her current medication list includes. 1. Zestril 10 mg daily. 2. Avandia 4 mg b.i.d. 3. Glipizide two 10 mg tablets b.i.d. 4. Glucophage 850 mg t.i.d. 5. Zoloft 100 mg daily. 6. Albuterol MDI. 7. Advair 250/50. 8. Aspirin 325 daily. 9. Lipitor, discontinued secondary to cough. 10. Hydrocodone 7.5/750 1 p.o. t.i.d. 11. Soma 1 p.o. t.i.d. Allergy: PENICILLIN ALLERGY AND INTOLERANCE TO ANCEF. Review of Systems: Noncontributory and all systems asked. Physical Examination Vital Signs: Blood pressure 134/70, pulse 64, and respirations 18. General: She is alert and oriented x 4. She has full range of axial rotation at her back and good sensation in her lower extremities without any ulcerations or edema. Assessment: Chronic pain. Plan 1. Refill medications x1 with 1 month refill. There is a medication care agreement in the chart. 2. NIDDM. We will draw routine laboratories and ensure ophthalmologic examination. Eladio Lynch M.D. ROSIE / KIMBER[place] [id number] / [id number] / [id number] / Tdocumented in this encounter Plan of Treatment Not on filedocumented as of this encounter Visit Diagnoses Not on filedocumented in this encounter"
--- OUTSIDE RECORDS SUMMARY | ~2020-02-24 | XMS | Encounter Summary ---
Demographics + + + | Address | [address] [place] [address] Ln | | | [place] [address] | + + + | Home Phone [...] | | | | | [place] [address] | | + + + + + Care Team Providers + +------+ + | Care Drafting Layout Worker Name | Role | Phone | + +------+ + | Unknown | PCP | Unavailable | + +------+ + Encounter Details +--------+ + + + + | Date | Type | Department | Care Team | Description | +--------+ + + + + | 07/06/ | Results | [facility] [address] | Maddie Grant | | | 1995 | Only | [address] | [phone] | | | | | [place] | | | | | | [address] | | | | | | [phone] | | | +--------+ + + + [...] + | SURGICAL PATHOLOGY | Routin | 07/06/1998 | | Results for this | | | e | | | procedure are in the | | | | | | results section. | + +--------+ + + + documented in this encounter Results SURGICAL PATHOLOGY (07/06/1998) + + + + + + | [...] | | | | | year old female | | | | | | Patient History: Right | | | | | | lower lobe mass. | | | | | | GROSS DESCRIPTION | | | | | | Specimens received: 2 | | | | | | in formalin. #1 | | | | | | RIGHT LOWER LOBE: The | | | | | | specimen consists of an | | | | | | 185 gram, 14.5 x 14.0 | | | | | | x7.0 cm lobe of lung | | | | | | consistent with the | | | | | | right lower lobe. The | | | | | | pleura ismottled dusky | | | | | | purple to red with mild | | | | | | anthracosis. The hilar | | | | | | aspect isunremarkable. | | | | | | Sectioning reveals a | | | | | | well-circumscribed mass | | | | | | having abulging, | | | | | | slightly stellate alexis | | | | | | cut surface in the | | | | | | posterior | | | | | | basilarsegment, | | | | | | measuring 2.2 x 2.1 x | | | | | | 1.8 cm. The mass is | | | | | | grossly free of | | | | | | thepleura and is 0.5 cm | | | | | | from the nearest | | | | | | bronchiole and 0.4 cm | | | | | | from thenearest vessels. | | | | | | Examination of the | | | | | | remaining parenchyma | | | | | | reveals nosatellite | | | | | | lesions. The parenchyma | | | | | | is congested red to | | | | | | purple. Noadditional | | | | | | lymph nodes are noted. | | | | | | #2 R4 LYMPH NODE: | | | | | | The specimen consists of | | | | | | three irregular | | | | | | yellowlobular fatty to | | | | | | anthracotic tissues | | | | | | consistent with lymphoid | | | | | | tissueranging from 0.8 | | | | | | x 0.7 x 0.4 cm to 1.3 x | | | | | | 1.2 x 0.8 cm. The two | | | | | | largertissues are | | | | | | bisected with one | | | | | | revealing what appear to | | | | | | be twounremarkable | | | | | | lymph nodes. The | | | | | | remaining tissue is | | | | | | unremarkable. | | | | | | CASSETTE INDEX:#1 | | | | | | RIGHT LOWER LOBE:1A | | | | | | bronchial margin of | | | | | | resection; one bisected | | | | | | hilar lymph node, | | | | | | RS.1B-D tumor, RS.1E | | | | | | parenchyma farthest | | | | | | from the tumor, RS.#2 | | | | | | R4 LYMPH NODE:2 RS. 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, | | | | | | MODERATELY TO POORLY | | | | | | DIFFERENTIATED, | | | | | | MEASURING 2.2 CM IN | | | | | | GREATEST DIAMETER; | | | | | | SURGICAL MARGINS FREE OF | | | | | | TUMOR ONE | | | | | | PARABRONCHIAL LYMPH NODE | | | | | | WITH NO TUMOR SEEN#2 | | | | | | R4 LYMPH NODE: TWO | | | | | | LYMPH NODES WITH NO | | | | | | TUMOR SEEN (0/2) | | | | | | Case reviewed by: | | | | | | Bladimir Moses M.D.Also | | | | | | seen by: Connie Eisenberg | | | | | | Le Alexander I have | | | | | | reviewed the keyfindings | | | | | | of this case with the | | | | | | fellow and agree with | | | | | | the | | | | | | interpretationprovided.T | | | | | | :07/08/98:[facility] | | | | | | [...] | + + + + + | [facility] | [address] | [place] [address] | | | PATHOLOGY | [address] | | | + + + + + documented in this encounter Visit Diagnoses Not on filedocumented in this encounter"
--- OUTSIDE RECORDS SUMMARY | ~2020-02-24 | XMS | Encounter Summary ---
Demographics + + + | Address | [address] [place] [address] Ln | | | [place] [address] | + + + | Home Phone | | + + + | Preferred Language | Unknown | + + + | Marital Status | | + + + | Oriental Orthodox Affiliation | LINDSAY | + + [...] | | | | | [place] [address] | | + + + + + Care Team Providers + +------+ + | Care Director Fixed Income Name | Role | Phone | + +------+ + | Eladio Lynch MD | PCP | | + +------+ + Reason for Visit + + + | Reason | Comments | + + + | Asthma | exacerbation | + + + | Diabetes mellitus | | + + + Encounter Details +--------+---------+ + + + | Date | Type | Department | Care Team | Description | +--------+---------+ + + + | 05/11/ | Office | [facility] | Eladio Lynch, | Unspecified Backache | | 2005 | Visit | Medicine at [facility] | [address] | (Primary Dx) | | | | [place] [address] | [place], [place] | | | | | [facility] [address] | [address] | | | | | Mailcode: [place] | [phone] | | | | | [address] | | | | | | [place], [place] | | | | | | [address] | | | | | | [phone] | | | +--------+---------+ + + + [...] + + + | Blood Pressure | 104/66 | 05/11/2006 11:20 AM | | | | | PDT | | + + + + + | Pulse | 107 | 05/11/2006 11:20 AM | | | | | PDT | | + + + + + | Temperature | - | - | | + + + + + | Respiratory Rate | - | - | | + + + + + | Oxygen Saturation | 95% | 05/11/2006 11:20 AM | | | | | PDT | | + + + + + | Inhaled Oxygen | - | - | | | Concentration | | | | + + + + + | Weight | 71.6 kg (157 lb 14.4 | 05/11/2006 11:20 AM | | | | oz) | PDT | | + + + + + | Height | 154.9 cm (5' 1") | 05/11/2006 11:20 AM | | | | | PDT | | + + + + + | Body Mass Index | 29.83 | 05/11/2006 11:20 AM | | | | | PDT | | + + + + + documented in this encounter Progress Eladio Mcclelland - 05/11/2006 4:05 PM PDTID: Martha Toth is a 65 y.o. female CC: stress HPI: Martha Toth was well until her daughter called, needing her in [place] for unclear reasons . Otherwise , she is here today for a refil of opoid analgesic medication under a medication care agreement through [facility] and Dr. Lynch. Her NIDDM is improving wrt control. Physical Examination Blood pressure 104/66, pulse 107, height 5' 1" (1.55 m), weight 157 lbs 14.4 oz (71.6 kg), sao2 95%. ext - foot exam normal x lt touch at plantar toes, cap ref 1.5 sec with palp pulses. ASSESSMENT: brief stress rxn. PLAN: discussed approach to her situation. 2) pain - Refill current medications per medication care agreement @ [facility] ingrid as above. documen mamta in this encounter Plan of Treatment Not on filedocumented as of this encounter Visit Diagnoses + + | Diagnosis | + + | Backache, unspecified - Primary | + + documented in this encounter
--- OUTSIDE RECORDS SUMMARY | ~2020-02-24 | XMS | Encounter Summary ---
Demographics + + + | Address | [address] [place] [address] Ln | | | [place] [address] | + + + | Home Phone | | + + + | Preferred Language | Unknown | + + + | Marital Status | | + + + | Yarsanism Affiliation | LINDSAY | + + + | Race | White | + + + | Ethnic Group | Not or | + + + Author + + + | Author | [facility] | + + + | Organization | [facility] | + + + | Address | Unknown | + + + | Phone | Unavailable | + + + Support + + + + + | Name | Relationship | Address | Phone | + + + + + | Jeni Shirley | ECON | [place] | | | | | [place] [address] | | + + + + + Care Team Providers + +------+ + | Care Power Plant Technician Name | Role | Phone | + +------+ + PCP | Unavailable | + +------+ + Encounter Details +--------+ + + + + | Date | Type | Department | Care Team | Description | +--------+ + + + + | 12/14/ | Results | [facility] | Eladio Lynch, | | | 1998 | Only | Medicine at [facility] | [address] | | | | | [place] [address] | [place], [place] | | | | | [address] | [address] | | | | | Mailcode: [place] | [phone] | | | | | [address] | | | | | | [place], [place] | | | | | | [address] | | | | | | [phone] | | | +--------+ + + + [...]
--- OUTSIDE RECORDS SUMMARY | ~2020-02-24 | XMS | Encounter Summary ---
Demographics + + + | Address | [address] | | | [place] [address] | + + + | Home Phone | | + + + | Preferred Language | Unknown | + + + | Marital Status | | + + + | Jain Affiliation | 1041 | + + + | Race | Unknown | + + + | Ethnic Group | Unknown | + + + Author + + + | Author | [facility] | | | and [place] | + + + | Organization | [facility] | | | and [place] [...] Team Providers + +------+ + | Care Procedures Tech Name | Role | Phone | + +------+ + | Krista Alvarez | PCP | | | PA | | | + +------+ + Reason for Visit + +--------+ + | Reason | Onset | Comments | | | Date | | + +--------+ + | Results, Imaging | 08/20/ | Lumbar MRI | | | 2019 | | + +--------+ + Encounter Details +--------+ + + + + | Date | Type | Department | Care Team | Description | +--------+ + + + + | 08/20/ | Telephone | [facility] | Alexander Sanchez, | Results, Imaging | | 2019 | | PHYSIATRY [address] | PA-C [address] | (Lumbar MRI) | | | | [address] | [address] [facility] | | | | | [place], [place] | [place] [address] | | | | | [address] | [phone] | | | | | [phone] | | | +--------+ + + + [...] + + documented as of this encounter Miscellaneous Notes Telephone Encounter - Luma Lemus Thread Trimmer - 08/21/2018 11:22 AM PSTPatient g iven MRI results and would like to proceed with injections. elephone Encounter - Solomon Celestin - Amelie 08/20/2018 4:12 PM PSTPatient called in again looking to speak with Pooja. Please call her back when available elepho ne Encounter - Ansley Richardson - 08/20/2018 1:16 PM PSTPatient called back and was read the results for imaging, she is wanting a call back from Pooja to see what is the next plan . elephone Encounter - Monica Castle Thread Trimmer - 08/20/2018 11:54 AM PSTAttempted to contact the kia t to relay the results of her lumbar MRI as reported by Alexander Sanchez PA-C. Patient did not a nswer so a message was left requesting a call back. elephone Encounter - Monica Castle Medica l Bioinformatics Team Member - 08/20/2018 11:54 AM PST----- Message from Alexander Sanchez PA-C sent at 08/20/2018 11:01 PST ----- Regarding: pedro patient MRI review Pooja, Please call patient regarding lumbar MRI. Results suggest severe central canal stenosis at L4/5. Treatments I can offer include bilateral L5/S1 TFESI. Thanks, Alexander Sanchez PA-C docum ented in this encounter Plan of Treatment Not on filedocumented as of this encounter Visit Diagnoses Not on filedocumented in this encounter"
--- OUTSIDE RECORDS SUMMARY | ~2020-02-24 | XMS | Encounter Summary ---
Demographics + + + | Address | [address] [place] [address] Ln | | | [place] [address] | + + + | Home Phone | | + + + | Preferred Language | Unknown | + + + | Marital Status | | + + + | Nondenominational Affiliation | LINDSAY | + + + [...] | | | | | [place] [address] | | + + + + + Care Team Providers + +------+ + | Care Orthotics Prosthetics Assistant Name | Role | Phone | + [...] Request | | 2006 | | at [facility] | MD [address] | | | | | [address] | [place], [place] | | | | | [facility] | [address] | | | | | and Healing, | [phone] | | | | | Building | | | | | | Floor [facility] [place] | | | | | | [address] | | | | | | [phone] | | | +--------+--------+ + + + [...]
--- OUTSIDE RECORDS SUMMARY | ~2020-02-24 | XMS | Encounter Summary ---
Demographics + + + | Address | [address] [place] [address] Ln | | | [place] [address] | + + + | Home Phone [...] | Author | [facility] | + + + | Organization | [facility] | + + + | Address | Unknown | + + + | Phone | Unavailable | + + + Support + + + + + | Name | Relationship | Address | Phone | + + + + + | Jeni Shirley | ECON | [place] | | | | | [place] [address] | | + + + + + Care Team Providers + +------+ + | Care Width Stripper Name | Role | Phone | + +------+ + | Eladio Lynch MD | PCP | | + +------+ + Encounter Details +--------+ + + + + | Date | Type | Department | Care Team | Description | +--------+ + + + + | 07/23/ | Office | [facility] | Note, [...] as of this encounter Progress Notes Interface, Furniture Removalist'S Assistant In - 03/05/2006 1:12 AM PDTCLINIC DATE: 07/23/2002 [facility] SUBJECTIVE: Ms. Toth is here for a refill of her controlled substance medications for chronic pain and has a update on her social history for me as well. CURRENT MEDICATIONS: Her current total medication list includes 1. Metformin 850 mg t.i.d. 2. Glipizide 20 mg b.i.d. 3. Albuterol. 4. Atrovent. 5. Flovent 110. 6. Nasonex. 7. Amitriptyline 150 mg q.h.s. 8. Zantac 150 mg b.i.d. 9. Avandia 4 mg daily. 10. Zoloft 100 mg daily. 11. Claritin 10 mg daily as needed for allergic symptoms. PROBLEM LIST 1. Diabetes. 2. Chronic back pain. 3. Reactive airway disease. 4. History of right-sided lobectomy. 5. Hemorrhoids. 6. Tobacco history, currently in cessation since September 2000. SOCIAL HISTORY: Her has once again lost his job working in construction which finds him at home more often and sometimes she appreciates. They have their separate lifestyles with respect to choice of television shows and other interests. She feels that she is doing well with respect to their communication and tolerating his angers and frustrations and believes she is in a safe environment. Additionally, her daughter has been having several frustrations and concerns that she shares with me. ASSESSMENT AND PLAN 1. Chronic pain. We will refill her medications for Vicodin and Soma 3 times daily each. Continue other medications as written above. 2. Depression. I am not interested in increasing her medications, and she knows that if she desire she is more than welcome to counseling referral. Eladio Lynch M.D. ROSIE / [id number] / [id number] / [id number] / Tdocumented in this encounter Plan of Treatment Not on filedocumented as of this encounter Visit Diagnoses Not on filedocumented in this encounter"
--- OUTSIDE RECORDS SUMMARY | ~2020-02-24 | XMS | Encounter Summary ---
Demographics + + + | Address | [address] [place] [address] Ln | | | [place] [address] | + + + | Home Phone | | + + + | Preferred Language | Unknown | + + + | Marital Status | | + + + | Protestant Affiliation | LINDSAY | + + + | Race | White | + + + | Ethnic Group | Not or | + + + Author + + + | Author | [facility] | + + + | Organization | [facility] | + + + | Address | Unknown | + + + | Phone | Unavailable | + + + Support + + + + + | Name | Relationship | Address | Phone | + + + + + | Jeni Shirley | ECON | [place] | | | | | [place] [address] | | + + + + + Care Team Providers + +------+ + | Care Litigator Name | Role | Phone | + [...] as of this encounter Progress Notes Interface, Back Hoe Operator In - 08/05/2006 1:03 AM PSTCLINIC DATE: 10/02/[address] [facility] - [place] [place] SUBJECTIVE: Ms. Toth is [...]
--- OUTSIDE RECORDS SUMMARY | ~2020-02-24 | XMS | Encounter Summary ---
Demographics + + + | Address | [address] [place] [address] Ln | | | [place] [address] | + + + | Home Phone [...] | | | | | [place] [address] | | + + + + + Care Team Providers + +------+ + | Care Bmx Rider Name | Role | Phone | + +------+ + PCP | Unavailable | + +------+ + Encounter Details +--------+ + + + + | Date | Type | Department | Care Team | Description | +--------+ + + + + | 03/14/ | Office | [facility] | Eladio Lynch, | | | 2004 | Visit-ECX | Medicine at [facility] | [address] | | | | | [place] | [place], [place] | | | | | [address] | [address] | | | | | Mailcode: MINDY Albarran | [phone] | | | | | [address] | | | | | | [place], [place] | | | | | | [address] | | | | | | [phone] | | | +--------+ + + + [...] + + + | Blood Pressure | 148/88 | 03/14/2005 6:28 PM | | | | | PDT | | + + + + + | Pulse | 72 | 03/14/2005 6:28 PM | | | | | PDT [...] + + + + | Weight | 170 kg (374 lb 12.5 | 03/14/2005 6:28 PM | | | | oz) | [...]
--- OUTSIDE RECORDS SUMMARY | ~2020-02-24 | XMS | Encounter Summary ---
Demographics + + + | Address | [address] [place] [address] Ln | | | [place] [address] | + + + | Home Phone [...] | | | | | [place] [address] | | + + + + + Care Team Providers + +------+ + | Care District Court Bailiff Name | Role | Phone | + [...] | at [facility] | MD [address] | | | | | [address] | [place], [place] | | | | | [facility] | [address] | | | | | and Healing, | [phone] | | | | | Building | | | | | | Floor [facility] [place] | | | | | | [address] | | | | | | [phone] | | | +--------+--------+ + + + [...]
--- OUTSIDE RECORDS SUMMARY | ~2020-02-24 | XMS | Encounter Summary ---
Demographics + + + | Address | [address] [place] [address] Ln | | | [place] [address] | + + + | Home Phone [...] | | | | | [place] [address] | | + + + + + Care Team Providers + +------+ + | Care Manager Paper Name | Role | Phone | + +------+ + | Eladio Lynch MD | PCP | | + +------+ + Encounter Details +--------+ + + + + | Date | Type | Department | Care Team | Description | +--------+ + + + + | 12/28/ | Office | [facility] | Note, [...] as of this encounter Progress Notes Interface, Dietitian Teacher In - 06/02/2006 3:12 AM PDTCLINIC DATE: 12/28/2000 [facility] SUBJECTIVE: Martha is here for a followup with an increasing level of whole body pain. She begins by explaining how her back hurts and then her right leg hurts, then adds to her torso on the right side and left side, her arms, her legs, and her hands were all aching. Her problem list includes: 1. Chronic functional back pain. 2. Reactive airways disease. 3. NIDDM. When discussing the issue of increasing pain, it is noted that a remarkable change in her current lifestyle has occurred. Her significant other currently has work in [employer] for the last 2 weeks. She prepares dinner at 4.a.m. at which point, they both go to bed. She is able to sleep 4-5 hours during the day. Occasionally, gets naps but has radically changed her sleeping behaviors and also made efforts at returning to normal on weekends. OBJECTIVE: GENERAL: She appears fatigued and tired. She is alert and oriented x 4. She has point tenderness throughout her body. ASSESSMENT AND PLAN 1. Sleep change and depravation with associated fatigue and pain. We discussed the need for her to have a routine in that perhaps sleeping while he is at work early enough that she can acquire 6 hours or 7 hours of sleep, prior to his arrival for dinner, and then be active during the day would be a better routine for her despite his work change. She is going to give that a try. 2. Migraine. Inapsine 2.5 mg IM today. We will see her back in 6 weeks. 3. Chronic pain. She will call for her refill of Vicodin and Flexeril which she receives on a monthly basis. She will then reestablish a monthly visit for hand-written scripts. Eladio Lynch M.D. ROSIE / [id number] / [id number] / [id number] / Tdocumented in this encounter Plan of Treatment Not on filedocumented as of this encounter Visit Diagnoses Not on filedocumented in this encounter"
--- OUTSIDE RECORDS SUMMARY | ~2020-02-24 | XMS | Encounter Summary ---
Demographics + + + | Address | [address] [place] [address] Ln | | | [place] [address] | + + + | Home Phone | | + + + | Preferred Language | Unknown | + + + | Marital Status | | + + + | Evangelical Affiliation | LINDSAY | + + + [...] | | | | | [place] [address] | | + + + + + Care Team Providers + +------+ + | Care Project Manager Retail Name | Role | Phone | + +------+ + | Eladio Lynch MD | PCP | | + +------+ + Encounter Details +--------+ + + + + | Date | Type | Department | Care Team | Description | +--------+ + + + + | 03/16/ | Results | [facility] | Eladio Lynch, | | | 2000 | Only | Medicine at [facility] | [address] | | | | | [address] | [place], [place] | | | | | [address] | [address] | | | | | Mailcode: MINDY Albarran | [phone] | | | | | [address] | | | | | | [place], [place] | | | | | | [address] | | | | | | [phone] | | | +--------+ + + + [...] + | HEMOGLOBIN A1C, | Routin | 03/16/2001 | | Results for this | | BLOOD | e | 4:33 PM | | procedure are in the | | | | PDT | | results section. | + +--------+ + + + documented in this encounter Results HEMOGLOBIN A1C (03/16/2001 4:33 PM PDT) + + + + + + | Component | Value | Ref Range | Performed | Pathologist | | | | | At | Signature | + + + + + + | HEMOGLOBIN | 11.0 (H) | <7.1 % | | | [...] + + + | [facility] | [address] | [place] [address] | | | LABORATORY | | | | + + + + + documented in this encounter Visit Diagnoses Not on filedocumented in this encounter"
--- OUTSIDE RECORDS SUMMARY | ~2020-02-24 | XMS | Encounter Summary ---
Demographics + + + | Address | [address] [place] [address] Ln | | | [place] [address] | + + + | Home Phone | | + + + | Preferred Language | Unknown | + + + | Marital Status | | + + + | Judaism Affiliation | LINDSAY | + + + [...] | | | | | [place] [address] | | + + + + + Care Team Providers + +------+ + | Care Rafter Cutting Machine Operator Name | Role | Phone | + +------+ + | Eladio Lynch MD | PCP | | + +------+ + Encounter Details +--------+ + + + + | Date | Type | Department | Care Team | Description | +--------+ + + + + | 08/16/ | Office | [facility] | Note, [...] as of this encounter Progress Notes Interface, Tie Tamper In - 07/07/2006 5:02 AM PSTCLINIC DATE: 08/16/1999 [facility] SUBJECTIVE: Ms. Toth is here generally for refills and follow up of multiple medical problems with respect to her diabetes. She is doing well, and her a.m. preprandial sugars are between 49 and 100, although she does not bring a log book with her. She states she is checking her sugars four times a day. The wound on her left anterior ankle continues with eschar and distal paresthesia, else espinoza, it appears well healing with no recent fluctuance or circumferential erythema. Her chronic pulmonary disease is stabilized with three metered dose inhalers and nasal inhaler all of which are in need of refill. Her chronic pain issue is a point as I was out of town when she required refills. I mentioned that our math and her's are slightly different. She should be taking no greater than four day of both Vicodin and the Soma. She agrees to maintain that schedule. OBJECTIVE: GENERAL: She is in no apparent distress. She is alert, oriented x 4. Weight is 152 pounds. VITAL SIGNS: Stable. LUNGS: Clear to auscultation. Her ankle is as above. ASSESSMENT: Vyv-ntynosm-zwgdwvzdz diabetes mellitus. PLAN 1. Continue current regimen of metformin and glipizide. 2. Chronic pain, 120 Vicodin with 120 Soma for today. We will follow her monthly for her pain. She understands that she will not receive refills prematurely. 3. Chronic obstructive pulmonary disease, refill albuterol MDI two plus b.i.d. plus p.r.n., Atrovent MDI two puffs b.i.d., Flovent 110 two plus b.i.d. with two inhalers and one year refill. We will see her back in one month. Eladio Lynch M.D. Syed / [id number] / [id number] / [id number] / Tdocumented in this encounter Plan of Treatment Not on filedocumented as of this encounter Visit Diagnoses Not on filedocumented in this encounter"
--- OUTSIDE RECORDS SUMMARY | ~2020-02-24 | XMS | Encounter Summary ---
Demographics + + + | Address | [address] [place] [address] Ln | | | [place] [address] | + + + | Home Phone [...] | | | | | [place] [address] | | + + + + + Care Team Providers + +------+ + | Care Captain'S Assistant Name | Role | Phone | [...] Description | +--------+--------+ + + + | 07/27/ | Refill | [facility] | Lynch, Eladio, | Refill Request | | 2005 | | at [facility] | MD [address] | | | | | [address] | [facility] [place] | | | | | [facility] | [address] | | | | | and Healing, | [phone] | | | | | Building | | | | | | Floor [facility] [place] | | | | | | [address] | | | | | | [phone] | | | +--------+--------+ + + + [...]
--- OUTSIDE RECORDS SUMMARY | ~2020-02-24 | XMS | Encounter Summary ---
Demographics + + + | Address | [address] [place] [address] Ln | | | [place] [address] | + + + | Home Phone [...] | | | | | [place] [address] | | + + + + + Care Team Providers + +------+ + | Care Cd Manufacturing Supervisor Name | Role | Phone | [...] [id number] | | | | | | [place], [place] | | | | | | [address] | | | | | | [phone] | | | +--------+ + + + [...]
--- OUTSIDE RECORDS SUMMARY | ~2020-02-24 | XMS | Encounter Summary ---
Demographics + + + | Address | [address] [place] [address] Ln | | | [place] [address] | + + + | Home Phone [...] + + + + + | Jeni Shirely | ECON | UA | | | | | [place] [address] | | + + + + + Care Team Providers + +------+ + | Care Coil Former Name | Role | Phone | + [...] Description | +--------+--------+ + + + | 08/06/ | Refill | [facility] | Lynch, Eladio, | Refill Request | | 2012 | | at [facility] | MD [address] | | | | | [address] | [place], [place] | | | | | [facility] | [address] | | | | | and Healing, | [phone] | | | | | Building | | | | | | Floor [facility] [place] | | | | | | [address] | | | | | | [phone] | | | +--------+--------+ + + + [...] + | Diagnosis | + + | Depression - Primary Depressive disorder, not elsewhere classified | + + documented in this encounter"
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
--- OUTSIDE RECORDS SUMMARY | ~2020-02-24 | XMS | Encounter Summary ---
Demographics + + + | Address | [address] [place] [address] Ln | | | [place] [address] | + + + | Home Phone [...] | | | | | [place] [address] | | + + + + + Care Team Providers + +------+ + | Care Epic Prelude Analyst Name | Role | Phone | + +------+ + PCP | Unavailable | + +------+ + Encounter Details +--------+ + + + + | Date | Type | Department | Care Team | Description | +--------+ + + + + | 10/16/ | Results | [facility] | Eladio Lynch, | | | 2003 | Only | Medicine at [facility] | [address] | | | | | [place] | [place], [place] | | | | | [address] | [address] | | | | | Mailcode: MINDY Albarran | [phone] | | | | | [address] | | | | | | [place], [place] | | | | | | [address] | | | | | | [phone] | | | +--------+ + + + [...] + | COMPLETE METABOLIC | Routin | 10/17/2003 | | Results for this | | SET | e | 10:30 AM | | procedure are in the | | (NA,K,CL,CO2,BUN,CRE | | PST | | results section. | | AT,GLUC,CA,AST,ALT,B | | | | | | OVIDIO TOTAL,ALK | | | | | | PHOS,ALB,PROT TOTAL) | | | | | + +--------+ + + + | CBC ONLY | Routin | 10/17/2003 | | Results for this | | | e | 10:30 AM | | procedure are in the | | | | PST | | results section. | + +--------+ + + + | TSH | Routin | 10/17/2003 | | Results for this | | | e | 10:30 AM | | procedure are in the | | | | PST | | results section. | + +--------+ + + + | LIPID SET (TRIG, T | Routin | 10/17/2003 | | Results for this | | CHOL, HDL, CALC LDL) | e | 10:30 AM | | procedure are in the | | | | PST | | results section. | + +--------+ + + + | HEMOGLOBIN A1C, | Routin | 10/17/2003 | | Results for this | | BLOOD | e | 10:30 AM | | procedure are in the | | | | PST | | results section. | + +--------+ + + + | LDL | Routin | 10/17/2003 | | Results for this | | CHOLEST,MEASURED, | e | 10:30 AM | | procedure are in the | | PLASMA | | PST | | results section. | + +--------+ + + + documented in this encounter Results TSH-THYROID STIM HORMONE (10/17/2003 10:30 AM PST) + + + + + + | Component | Value | Ref Range | Performed | Pathologist | | | | | At | Signature | + + + + + + | TSH | 1.80Comment: Test | 0.28 - 5.00 | | | | | performed by [facility] | uIU/ml | | | | | [facility] | | | | | | Laboratories. | | | | + + + + + + + + | Specimen | + + | | + + + + + + + | Performing | Address | City/State/Zipcode | Phone Number | | Organization | | | | + + + + + | [facility] | [address] | [place] [address] | | | LABORATORY | | | | + + + + + HEMOGLOBIN A1C (10/17/2003 10:30 AM PST) + + + + + + | Component | Value | Ref Range | Performed | Pathologist | | | | | At | Signature | + + + + + + | HEMOGLOBIN | 6.9 (H)Comment: | <5.8 % | | | [...] by | | | | | | [facility] | | | | | | [facility] [address]. | | | | + + + + + + + + | Specimen | + + | | + + + + + + + | Performing | Address | City/State/Zipcode | Phone Number | | Organization | | | | + + + + + | [facility] | [address] | [place] [address] | | | LABORATORY | | | | + + + + + CBC ONLY WITH PLATELET (10/17/2003 10:30 AM PST) + + + + + + | Component | Value | Ref Range | Performed | Pathologist | | | | | At | Signature | + + + + + + | WHITE CELL | 7.4 | 4.4 - 11.0 K/cu | [facility] | | | COUNT | | mm | DEPARTMENT | | | | | | OF | | | | | | PATHOLOGY | | + + + + + + | RED CELL | 4.04 | 3.65 - 5.10 | [facility] | | | COUNT | | M/cu mm | DEPARTMENT | | | | | | OF | | | | | | PATHOLOGY | | + + + + + + | HEMOGLOBIN | 10.8 (L) | 11.4 - 15.0 | [facility] | | | | | g/dL | DEPARTMENT | | | | | | OF | | | | | | PATHOLOGY | | + + + + + + | HEMATOCRIT | 32.4 (L) | 33.0 - 44.6 % | [facility] | | | | | | DEPARTMENT | | | | | | OF | | | | | | PATHOLOGY | | + + + + + + | MCV | 80.3 | 80.0 - 96.0 fL | [facility] | | | | | | DEPARTMENT | | | | | | OF | | | | | | PATHOLOGY | | + + + + + + | MCH | 26.8 (L) | 29.0 - 32.0 pg | [...] + + + + | RDW | 15.1 (H) | 11.5 - 15.0 % | [facility] | | | | | | DEPARTMENT | | | | | | OF | | | | | | PATHOLOGY | | + + + + + + | PLATELET | 433 (H) | 150 - 400 K/cu | [facility] | | | COUNT | | mm | DEPARTMENT | | | | | | OF | | | | | | PATHOLOGY | | + + + + + + | MPV | 9.1 | 7.4 - 10.4 fL | [facility] [...] DEPARTMENT OF | [address] | [place] [address] | | | PATHOLOGY | [address] | | | + + + + + | [facility] DE[facility]MENT [facility] | [address] | [place] [address] | | | PATHOLOGY | [address] | | | + + + + + COMP METABOLIC SET (10/17/2003 10:30 AM PST) + +--------+ + + + | Component | Value | Ref Range | Performed | Pathologist | | | | | At | Signature | + +--------+ + + + | GLUCOSE, | 106 | 65 - 110 mg/dL | [facility] | | | PLASMA | | | DEPARTMENT | | | (LAB) | | | OF | | | | | | PATHOLOGY | | + +--------+ + + + | BUN, PLASMA | 21 (H) | 6 - 20 mg/dL | [facility] | | | (LAB) | | | DEPARTMENT | | | | | | OF | | | | | | PATHOLOGY | | + +--------+ + + + | CREATININE | 0.8 | 0.6 - 1.1 mg/dL | [facility] | | | PLASMA | | | DEPARTMENT | | | (LAB) | | | OF | | | | | | PATHOLOGY | | + +--------+ + + + | TOTAL | 7.5 | 6.1 - 7.9 g/dL | [facility] | | | PROTEIN, | | | DEPARTMENT | | | PLASMA | | | OF | | | (LAB) | | | PATHOLOGY | | + +--------+ + + + | ALBUMIN, | 3.8 | 3.5 - 4.7 g/dL | [facility] | | | PLASMA | | | DEPARTMENT | | | (LAB) | | | OF | | | | | | PATHOLOGY | | + +--------+ + + + | CALCIUM, | 9.0 | 8.5 - 10.5 | [facility] | | | PLASMA | | mg/dL | DEPARTMENT | | | (LAB) | | | OF | | | | | | PATHOLOGY | | + +--------+ + + + | BILIRUBIN | 0.4 | 0.3 - 1.2 mg/dL | [facility] | | | TOTAL | | | DEPARTMENT | | | | | | OF | | | | | | PATHOLOGY | | + +--------+ + + + | ALK PHOS | 60 | 53 - 141 U/L | [facility] | | | | | | DEPARTMENT | | | | | | OF | | | | | | PATHOLOGY | | + +--------+ + + + | AST(SGOT) | 29 | 15 - 41 U/L | [facility] | | | | | | DEPARTMENT | | | | | | OF | | | | | | PATHOLOGY | | + +--------+ + + + | SODIUM, | 142 | 136 - 145 | [facility] | | | PLASMA | | mmol/L | DEPARTMENT | | | (LAB) | | | OF | | | | | | PATHOLOGY | | + +--------+ + + + | POTASSIUM, | 3.9 | 3.5 - 5.1 | [facility] | | | PLASMA | | mmol/L | DEPARTMENT | | | (LAB) | | | OF | | | | | | PATHOLOGY | | + +--------+ + + + | CHLORIDE, | 103 | 98 - 107 mmol/L | [facility] | | | PLASMA | | | DEPARTMENT | | | (LAB) | | | OF | | | | | | PATHOLOGY | | + +--------+ + + + | TOTAL CO2, | 25 | 23 - 29 mmol/L | [facility] | | | PLASMA | | | DEPARTMENT | | | (LAB) | | | OF | | | | | | PATHOLOGY | | + +--------+ + + + | ALT (SGPT) | 9 (L) | 13 - 48 U/L | [facility] | | | | | | DEPARTMENT | | | | | | OF | | | | | | PATHOLOGY | | + +--------+ + + + + + | Specimen | + + | | + + + + + + + | Performing | Address | City/State/Zipcode | Phone Number | | Organization | | | | + + + + + | [facility] | [facility] [address] | [place] [address] | | | PATHOLOGY | [address] | | | + + + + + | [facility] | [address] [place] [address] | [place] [address] | | | PATHOLOGY | [address] | | | + + + + + LDL CHOLEST,MEASURED (10/17/2003 10:30 AM PST) + +-------+ + + + | Component | Value | Ref Range | Performed | Pathologist | | | | | At | Signature | + +-------+ + + + | LDL CHOLEST | 69 | <130 mg/dL | [facility] | | | | | [...] DEPARTMENT OF | [address] | [place], [place] [address] | | | PATHOLOGY | [address] | | | + + + + + | [facility] DEPARTMENT OF | [address] | [place] [address] | | | PATHOLOGY | [address] | | | + + + + + LIPID SET (10/17/2003 10:30 AM PST) + + + + + + | Component | Value | Ref Range | Performed | Pathologist | | | | | At | Signature | + + + + + + | CHOLESTEROL | 188Comment: | <200 mg/dL | [facility] | | | (LAB) | Cholesterol Reference [...] + + + + | TRIGLYCERID | 441 (H)Comment: | <200 mg/dL | [facility] | [...] + + + + | HDL | 52Comment: HDL | >40 mg/dL | [facility] | | | CHOLESTEROL | Reference Range: | | DEPARTMENT | | | | High | | OF | | | | Risk: <40 | | PATHOLOGY | | | | Desirable: | | | | | | >=60 | | | | + + + + + + | LDL | SeeMeas | | [facility] | | | CHOLESTEROL | [...] + + + + + | [facility] | [facility] | [place] [address] | | | PATHOLOGY | [address] | | | + + + + + | [facility] DEPARTMENT OF | [address] [facility] | [place] [address] | | | PATHOLOGY | [address] | | | + + + + + documented in this encounter Visit Diagnoses Not on filedocumented in this encounter"
--- OUTSIDE RECORDS SUMMARY | ~2020-02-24 | XMS | Encounter Summary ---
Demographics + + + | Address | [address] [place] [address] Ln | | | [place] [address] | + + + | Home Phone [...] | | | | | [place] [address] | | + + + + + Care Team Providers + +------+ + | Care Muffler Hand Name | Role | Phone | + +------+ + | Eladio Lynch MD | PCP | | + +------+ + Encounter Details +--------+ + + + + | Date | Type | Department | Care Team | Description | +--------+ + + + + | 04/07/ | Office | [facility] | Note, [...] as of this encounter Progress Notes Interface, Litigation Specialist In - 06/19/2006 2:27 AM PSTCLINIC DATE: 04/07/2000 [facility] SUBJECTIVE: The patient is here for a monthly followup of her medications concerning her back pain. Her back pain history includes greater than 20 years of narcotic dependence intermittently for her back pain. She states that it generally is continuous with occasional radiation down both legs. It does not cause any numbness or muscular difficulty. She has had two surgeries historically in 1979 and 1981 as well as a thoracic surgery two years ago. Remainder of the past medical history includes dog-dzcnegs-vtxithfgx diabetes mellitus, reactive airway disease, and hypertension. REVIEW OF SYSTEMS: Positive for fatigue, insomnia, pain, headaches, anxiety, abdominal discomfort, and heartburn. Negative for seizures, dizziness, dysuria, urgency, frequency, and constipation. ALLERGIES: PENICILLIN, BEE STINGS, BLOOD PRODUCTS, AND MILK. OBJECTIVE: GENERAL: She is in no apparent distress. She is alert and oriented times four. VITAL SIGNS: Stable. HEENT: PERRLA. LUNGS: Clear. ABDOMEN: Soft, with positive bowel sounds. BACK: Negative straight leg raise to point tenderness over the L5-S1. Movements are restricted secondary to pain. LABORATORY DATA: Her CBG this morning was 46. She did not experience any symptoms with that. ASSESSMENT: Chronic pain. PLAN: We will refill her Vicodin 5/500, #120 tablets with one refill one p.o. q.i.d., Soma 350 mg, #120 tablets with one refill. Eladio Lynch M.D. ROSIE / [id number] / [id number] / [id number] / [id number] signed by Interface, Litigation Specialist In at 06/19/2006 2:27 AM PSTdocume nted in this encounter Plan of Treatment Not on filedocumented as of this encounter Visit Diagnoses Not on filedocumented in this encounter"
--- OUTSIDE RECORDS SUMMARY | ~2020-02-24 | XMS | Encounter Summary ---
Demographics + + + | Address | [address] [place] [address] Ln | | | [place] [address] | + + + | Home Phone [...] | | | | | [place] [address] | | + + + + + Care Team Providers + +------+ + | Care Pageant Director Name | Role | Phone | + +------+ + PCP | Unavailable | + +------+ + Encounter Details +--------+ + + + + | Date | Type | Department | Care Team | Description | +--------+ + + + + | 10/02/ | Results | [facility] | Eladio Lynch, | | | 1998 | Only | Medicine at [facility] | [address] | | | | | [address] | [place], [place] | | | | | [address] | [address] | | | | | Mailcode: MINDY Albarran | [phone] | | | | | [address] | | | | | | [place], [place] | | | | | | [address] | | | | | | [phone] | | | +--------+ + + + [...] X-RAY CHEST 2 VIEW | Routin | 10/02/1998 | | Results for this | | | e | 3:21 PM | | procedure are in the | | | | PST | | results section. | + +--------+ + + + documented in this encounter Results CHEST 2 VIEW (10/02/1998 3:21 PM PST) + + + + + + | Component | Value | Ref Range | Performed | Pathologist | | | | | At | Signature | + + + + + + | CHEST, 2 | Radiologist 1: BART, | | | | | ANURADHA [place] | Le PINEDA-Radiologist | | | | | STEREO | 2: EZEQUIEL DEJESUS, | | | | | | M.SamanthaCHEST TWO VIEWS: | | | | | | 10/02/98 at 1521 hours. | | | | | | Dictated: | | | | | | 10/08/98 COMPARISON: | | | | | | Comparison is made with | | | | | | prior study of 08/03/98. | | | | | | FINDINGS: The | | | | | | cardio-mediastinal | | | | | | silhouette is unchanged. | | | | | | Surgicalclips are again | | | | | | noted in the right | | | | | | suprahilar region. The | | | | | | left lung isclear. The | | | | | | linear opacity in the | | | | | | right lower lung zone | | | | | | consistentwith scar is | | | | | | unchanged. Minimal | | | | | | chronic blunting of the | | | | | | rightcostophrenic angle | | | | | | is noted with a right | | | | | | diaphragmatic | | | | | | eventrationwhich is | | | | | | unchanged. IMPRESSION: | | | | | | No acute cardiopulmonary | | | | | | disease. END OF | | | | | | IMPRESSION: | | | | + + + + + + + + | Specimen | + + | | + + + +---------+ + + | Performing | Address | City/State/Zipcode | Phone Number | | Organization | | | | + +---------+ + + | [facility] DEPARTMENT OF | | | | | RADIOLOGY | | | | + +---------+ + + documented in this encounter Visit Diagnoses Not on filedocumented in this encounter"
--- OUTSIDE RECORDS SUMMARY | ~2020-02-24 | XMS | Encounter Summary ---
Demographics + + + | Address | [address] [place] [address] Ln | | | [place] [address] | + + + | Home Phone [...] + + + | Author | [facility] | + + + | Organization | [facility] | + + + | Address | Unknown | + + + | Phone | Unavailable | + + + Support + + + + + | Name | Relationship | Address | Phone | + + + + + | Jeni Shirley | ECON | [place] | | | | | [place] [address] | | + + + + + Care Team Providers + +------+ + | Care Wireline Operator Name | Role | Phone | + +------+ + | Eladio Lynch MD | PCP | | + +------+ + Reason for Visit + + + | Reason | Comments | + + + | DM - Diabetes | did not check cbg in am | | mellitus | | + + + | Bursitis | | + + + | Refill Encounters | discuss amytripline options | + + + Encounter Details +--------+---------+ + + + | Date | Type | Department | Care Team | Description | +--------+---------+ + + + | 07/14/ | Office | [facility] Primary Care | Eladio Lynch, | DM w/o Complication | | 2005 | Visit | at [facility] | MD [address] | Type II (Primary | | | | [address] | [place], [place] | Dx); Unspecified | | | | [facility] | [address] | Backache | | | | and Healing, | [phone] | | | | | [facility] | | | | | | Floor [place], [place] | | | | | | [address] | | | | | | [phone] | | | +--------+---------+ + + + [...] + + + | Blood Pressure | 128/70 | 07/14/2006 9:22 AM | | | | | PST | | + + + + + | Pulse | 76 | 07/14/2006 9:22 AM | | | | | PST | | + + + + + | Temperature | - | - | | + + + + + | Respiratory Rate | 20 | 07/14/2006 9:22 AM | | | | | PST | | + + + + + | Oxygen Saturation | - | - | | + + + + + | Inhaled Oxygen | - | - | | | Concentration | | | | + + + + + | Weight | 88.9 kg (196 lb) | 07/14/2006 9:22 AM | | | | | PST | | + + + + + | Height | 155.6 cm (5' 1.25") | 07/14/2006 9:22 AM | | | | | PST | | + + + + + | Body Mass Index | 36.73 | 07/14/2006 9:22 AM | | | | | PST | | + + + + + documented in this encounter Progress Eladio Mcclelland - 09/08/2006 4:17 PM PSTFormatting of this note might be different from t gonzalez original. ID: Martha Toth is a 66 y.o. female CC: Chronic pain HPI: Martha Toth is well know to me here to review her medications. She does have some dif ficulty sleeping and does not like the amytriptiline used for sleep and pain. Physical Examination Blood pressure 128/70, pulse 76, resp. rate 20, height 1.556 m (5' 1"), weight 88.905 kg (1 96 lbs). Cv rrr resp cta ambulatory without assistance or gait abnormality. ASSESSMENT: chronic pain Encounter Diagnoses Code Name Primary? 250.00 DM w/o Complication Type II Yes Plan: FINGER STICK BLOOD GLUCOSE (BY MONITOR), POC 724.5 Unspecified Backache Plan: SOMA 350 MG TAB, VICODIN ES 7.5 MG-750 MG TAB Refill current medications per medication care agreement @ [facility], family medicine as above. E lectronically signed by Eladio Lynch at 09/08/2006 4:17 PM PSTdocumented in this encount er Plan of Treatment Not on filedocumented as of this encounter Procedures + +--------+ + + + | Procedure Name | Priori | Date/Time | Associated Diagnosis | Comments | | | ty | | | | + +--------+ + + + | CAPILLARY BLOOD | Routin | 07/14/2006 | DM w/o | Results for this | | GLUCOSE (NO CHG), | e | 9:31 AM | Complication Type II | procedure are in the | | POC | | PST | | results section. | + +--------+ + + + documented in this encounter Results FINGER STICK BLOOD GLUCOSE (BY MONITOR), POC (07/14/2006 9:31 AM PST) + +---------+ + + + | Component | Value | Ref Range | Performed | Pathologist | | | | | At | Signature | + +---------+ + + + | GLUCOSE, | 148 (A) | 65 - 110 mg/dL | [facility] | | | PLASMA | | | OF CARE | | | (LAB) | | | TESTS | | + +---------+ + + + + + | Specimen | + + | | + + + + + + + | Performing | Address | City/State/Zipcode | Phone Number | | Organization | | | | + + + + + | [facility] | [address] | [place], [place] | | | [facility] | [address] | [address] | | | TESTS | | | | + + + + + | [facility] | [address] | [place], [place] | | | TESTS | [address] | [address] | | + + + + + documented in this encounter Visit Diagnoses + + | Diagnosis | + + | Type II or unspecified type diabetes mellitus without mention of complication, not | | stated as uncontrolled - Primary | + + | Backache, unspecified | + + documented in this encounter
--- OUTSIDE RECORDS SUMMARY | ~2020-02-24 | XMS | Encounter Summary ---
Demographics + + + | Address | [address] [place] [address] Ln | | | [place] [address] | + + + | Home Phone | | + + + | Preferred Language | Unknown | + + + | Marital Status | | + + + | Druze Affiliation | LINDSAY | + + + | Race | White | + + + | Ethnic Group | Not or | + + + Author + + + | Author | [facility] | + + + | Organization | [facility] | + + + | Address | Unknown | + + + | Phone | Unavailable | + + + Support + + + + + | Name | Relationship | Address | Phone | + + + + + | Jeni Shirley | ECON | [place] | | | | | [place] [address] | | + + + + + Care Team Providers + +------+ + | Care Morning Babysitter Name | Role | Phone | + +------+ + PCP | Unavailable | + +------+ + Encounter Details +--------+ + + + + | Date | Type | Department | Care Team | Description | +--------+ + + + + | 06/24/ | Results | [facility] | Eladio Lynch, | | | 2000 | Only | Medicine at [facility] | [address] | | | | | [place] | [place], [place] | | | | | [address] | [address] | | | | | Mailcode: MINDY Albarran | [phone] | | | | | [address] | | | | | | [place], [place] | | | | | | [address] | | | | | | [phone] | | | +--------+ + + + [...] | + +--------+ + + + | MRI SPINE THORACIC | Routin | 06/24/2001 | | Results for this | | WO FEDERICA | e | 2:59 PM | | procedure are in the | | | | PST | | results section. | + +--------+ + + + | MRI SPINE LUMBAR WWO | Routin | 06/24/2001 | | Results for this | | CONTR | e | 2:59 PM | | procedure are in the | | | | PST | | results section. | + +--------+ + + + | MRI SPINE CERVICAL | Routin | 06/24/2001 | | Results for this | | WO CONTRAST | e | 2:59 PM | | procedure are in the | | | | PST | | results section. | + +--------+ + + + documented in this encounter Results MRI SPINE CERVICAL WO CONTRAST (06/24/2001 2:59 PM PST) + + + + + + | Component | Value | Ref Range | Performed | Pathologist | | | | | At | Signature | + + + + + + | MR CERVICAL | Radiologist 1: DEJON, | | | | | SPINE WO | ANNETTE LICONA M.D.MRI OF THE | | | | | CONTRAST | CERVICAL SPINE: | | | | | | 06/24/2001 Dictated | | | | | | 06/25/2001 CLINICAL | | | | | | HISTORY: Neck pain. | | | | | | TECHNIQUE: MRI of the | | | | | | cervical spine was | | | | | | performed with the | | | | | | followingsequences:1. | | | | | | Sagittal T1.2. | | | | | | Sagittal and axial | | | | | | T2.3. Axial 3D SPGR. | | | | | | FINDINGS: The spinal | | | | | | cord is normal in size | | | | | | and | | | | | | signalcharacteristics. | | | | | | There is no intradural | | | | | | extramedullary lesion. | | | | | | The cerebellar tonsils | | | | | | rest in normal position | | | | | | above the foramenmagnum. | | | | | | At C1-2 and C2-3, there | | | | | | is no evidence of | | | | | | herniated disc, | | | | | | centralcanal, or neural | | | | | | foraminal stenosis. At | | | | | | C3-4, there is mild | | | | | | bilateral narrowing of | | | | | | the neural foramina | | | | | | dueto small | | | | | | uncovertebral joint | | | | | | hypertrophy. At C4-5 and | | | | | | C5-6, there is no | | | | | | herniated disc, central | | | | | | canal, or | | | | | | neuralforaminal | | | | | | stenosis. At C6-7, there | | | | | | is loss of | | | | | | intervertebral disc | | | | | | space and | | | | | | anteriorherniated disc | | | | | | and osteophyte. There | | | | | | is no posterior disc | | | | | | bulge orherniated disc. | | | | | | There is mild to | | | | | | moderate narrowing of | | | | | | the rightneural foramina | | | | | | due to uncovertebral | | | | | | joint hypertrophy. | | | | | | There is asmall left | | | | | | synovial cyst. At C7-T1, | | | | | | there is moderate | | | | | | narrowing of the left | | | | | | neural foramina dueto | | | | | | combination of facet and | | | | | | uncovertebral joint | | | | | | hypertrophy. Theright | | | | | | neural foramina and | | | | | | central canal are | | | | | | unremarkable. There is | | | | | | noherniated disc. | | | | | | IMPRESSION: 1. 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 | | | | | | 2. At C6-7, there is | | | | | | mild to moderate | | | | | | narrowing of the right | | | | | | neuralforamina due to | | | | | | uncovertebral joint | | | | | | hypertrophy. 3. At | | | | | | C7-T1, there is moderate | | | | | | narrowing of the left | | | | | | neural foraminadue to | | | | | | facet and uncovertebral | | | | | | joint hypertrophy. END | | | | | | [...] | | | + +---------+ + + MRI SPINE THORACIC WO FEDERICA (06/24/2001 2:59 PM PST) + + + + + + | Component | Value | Ref Range | Performed | Pathologist | | | | | At | Signature | + + + + + + | MR THORACIC | Radiologist 1: TJREAW, | | | | | SPINE WO | TJKERMIT LICONA M.D.MRI OF THE | | | | | CONTRST | THORACIC SPINE: | | | | | | 06/24/2001 Dictated | | | | | | 06/25/2001 CLINICAL | | | | | | HISTORY: Pain. Rule | | | | | | out compression. | | | | | | TECHNIQUE: MRI of the | | | | | | thoracic spine was | | | | | | performed with the | | | | | | followingsequences:1. | | | | | | Sagittal and axial | | | | | | T1.2. Sagittal and | | | | | | axial T2. FINDINGS: The | | | | | | thoracic spinal cord is | | | | | | normal in size and | | | | | | signal.There is no | | | | | | intradural | | | | | | extramedullary mass. The | | | | | | vertebral bodies are | | | | | | normally aligned. | | | | | | There is no evidence | | | | | | ofherniated disc or | | | | | | central canal narrowing. | | | | | | There is a hypointense | | | | | | signal in the superior | | | | | | endplate of T12 that | | | | | | isnot associated with | | | | | | expansion of the | | | | | | vertebral body or | | | | | | surroundingsoft tissue | | | | | | abnormality. There is | | | | | | approximately 10-15% | | | | | | loss of heightof T12 | | | | | | vertebral body and | | | | | | enhancement after | | | | | | administration | | | | | | ofgadolinium. The | | | | | | T11-12 disc is normal. | | | | | | IMPRESSION: Minimal | | | | | | compression deformity | | | | | | and endplate change | | | | | | superior aspect ofT12 | | | | | | most likely represents | | | | | | osteoporotic compression | | | | | | deformity lesslikely | | | | | | neoplasm. END OF | | | | | | IMPRESSION: | | | | + + + + + + + + | Specimen | + + | | + + + +---------+ + + | Performing | Address | City/State/Zipcode | Phone Number | | Organization | | | | + +---------+ + + | [facility] DEPARTMENT OF | | | | | RADIOLOGY | | | | + +---------+ + + MRI SPINE LUMBAR WWO CONTR (06/24/2001 2:59 PM PST) + + + + + + | Component | Value | Ref Range | Performed | Pathologist | | | | | At | Signature | + + + + + + | MR LUMBAR | Radiologist 1: DEJON, | | | | | SPINE WWO | ANNETTE LICONA M.D.MRI OF THE | | | | | CONTR | LUMBAR SPINE: | | | | | | 06/24/2001 Dictated | | | | | | 06/25/01 COMPARISON: | | | | | | None. CLINICAL HISTORY: | | | | | | Back pain. TECHNIQUE: | | | | | | MRI of the lumbar spine | | | | | | was performed with the | | | | | | followingsequences:1. | | | | | | Sagittal and axial pre | | | | | | and post gadolinium | | | | | | T1.2. Sagittal T2.3. | | | | | | Axial T2 with fat | | | | | | saturation. FINDINGS: | | | | | | The conus terminates | | | | | | normally at L1. It is | | | | | | normal in sizeand signal | | | | | | characteristic. There | | | | | | is no intradural | | | | | | extramedullarylesion. | | | | | | There is no evidence | | | | | | of arachnoiditis. The | | | | | | vertebral bodies are | | | | | | normally aligned. | | | | | | There is endplate | | | | | | Z1ddizeediqhfvit at T12 | | | | | | that enhance. The | | | | | | anterior posterior | | | | | | dimensionof T12 is | | | | | | normal. It is likely | | | | | | to represent a | | | | | | osteoporoticcompression | | | | | | deformity. There is a | | | | | | small Smorl's nodes | | | | | | superioraspect of L5. | | | | | | From L1 to L4, there is | | | | | | no evidence of herniated | | | | | | disc, central canalor | | | | | | neural foraminal | | | | | | stenosis. At L4-5, there | | | | | | are bilateral mild | | | | | | neural foramina | | | | | | narrowing due tofacet | | | | | | hypertrophy. There is | | | | | | no herniated disc or | | | | | | central canalcompromise. | | | | | | At L5-S1, there is no | | | | | | evidence of herniated | | | | | | disc, central canal | | | | | | orneural foraminal | | | | | | stenosis. IMPRESSION: | | | | | | 1. Endplate | | | | | | compression deformity at | | | | | | superior aspect of T12 | | | | | | slightlyosteoporotic in | | | | | | nature. 2. At L4-5, | | | | | | bilateral mild narrowing | | | | | | of the neural foramina | | | | | | due tofacet hypertrophy. | | | | | | END OF IMPRESSION: | | | | + + + + + + + + | Specimen | + + | | + + + +---------+ + + | Performing | Address | City/State/[facility] | Phone Number | | Organization | | | | + +---------+ + + | [facility] DEPARTMENT OF | | | | | RADIOLOGY | | | | + +---------+ + + documented in this encounter Visit Diagnoses Not on filedocumented in this encounter"
--- OUTSIDE RECORDS SUMMARY | ~2020-02-24 | XMS | Encounter Summary ---
Demographics + + + | Address | [address] [place] [address] Ln | | | [place] [address] | + + + | Home Phone [...] | | | | | [place] [address] | | + + + + + Care Team Providers + +------+ + | Care Staff Trainer Name | Role | Phone | + +------+ + | Eladio Lynch MD | PCP | | + +------+ + Encounter Details +--------+ + + + + | Date | Type | Department | Care Team | Description | +--------+ + + + + | 11/23/ | Office | [facility] | Note, [...] as of this encounter Progress Notes Interface, Pathology Lab Technician In - 07/30/2006 5:12 AM PSTCLINIC DATE: 11/23/1998 [facility] SUBJECTIVE: Ms. Toth is here today to discuss test results that were drawn concerning her diabetes and medications. Her yearly urine microalbumin of 3.8 is within normal limits. Hemoglobin A1C was 11.4. Glucose was 221, cholesterol was 123, and there was mild transaminase elevation. A follicle stimulating hormone (FSH) was 22, and thyroid stimulating hormone (TSH) was .47, recently drawn as well. 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 However, we both decided it was time to refocus on the diabetes at present and start corrective measures with diet and exercise, add medications as necessary in the near future, and we will see her back in one month. Eladio Lynch M.D. Sophy Tdocumented in this encounter Plan of Treatment Not on filedocumented as of this encounter Visit Diagnoses Not on filedocumented in this encounter"
--- OUTSIDE RECORDS SUMMARY | ~2020-02-24 | XMS | Encounter Summary ---
Demographics + + + | Address | [address] [place] [address] Ln | | | [place] [address] | + + + | Home Phone [...] | | | | | [place] [address] | | + + + + + Care Team Providers + +------+ + | Care Pre Sales Architect Name | Role | Phone | + +------+ + PCP | Unavailable | + +------+ + Encounter Details +--------+ + + + + | Date | Type | Department | Care Team | Description | +--------+ + + + + | 10/16/ | Office | [facility] | Note, [...] as of this encounter Progress Notes Interface, Assistant Women'S Tennis Coach In - 03/05/2005 10:53 PM PDTClinic Date: 10/17/2003 Subjective: Ms. Toth is here today for a followup of multiple medical issues and primarily to receive refills of her medications for chronic back pain. She is on care agreement for hydrocodone 7.5/750 t.i.d. with Soma one p.o. t.i.d. which she is to use monthly. Medications: Additional medications include 1. Zestril 10 mg daily. 2. Avandia 4 mg b.i.d. 3. Amitriptyline 100 mg nightly. 4. Lasix 40 mg q.a.m. 5. Advair 250/50. 6. Glipizide 2 p.o. b.i.d. 10 mg. 7. Glucophage 850 mg p.o. t.i.d. 8. Zoloft 100 mg daily. 9. Albuterol MDI. 10. Aspirin 325 daily 11. Multiple vitamins. 12. Lipitor 10 mg daily. Physical Examination General: She is alert and oriented x4. Vital Signs: Blood pressure 128/72, pulse 100, respirations 20, and weight 167 pounds. Laboratory Data: FBS is 101. Assessment and Plan 1. Chronic pain. Refill above medications. 2. Qqp-dghvltk-rironiswt diabetes mellitus. Referral for [facility] for retinal examination. We will draw fasting laboratories as well as refer her for stress echocardiogram. Eladio Lynch M.D. ROSIE / KIMBERLEY [id number] / [id number] / [id number] / Tdocumented in this encounter Plan of Treatment Not on filedocumented as of this encounter Visit Diagnoses Not on filedocumented in this encounter"
--- OUTSIDE RECORDS SUMMARY | ~2020-02-24 | XMS | Encounter Summary ---
Demographics + + + | Address | [address] [place] [address] Ln | | | [place] [address] | + + + | Home Phone [...] | | | | | [place] [address] | | + + + + + Care Team Providers + +------+ + | Care Propellant Charge Zone Assembler Name | Role | Phone | [...] of this encounter Progress Notes Interface, Feed Crusher In - 03/28/2006 3:02 AM PDTCLINIC DATE: 03/25/2002 [facility] SUBJECTIVE: Ms. Toth is here [...] months. Eladio Lynch M.D. ROSIE / KIMBERLEY [id number] / [id number] / [id number] / Tdocumented in this encounter Plan of Treatment Not on filedocumented as of this encounter Visit Diagnoses Not on filedocumented in this encounter"
--- OUTSIDE RECORDS SUMMARY | ~2020-02-24 | XMS | Encounter Summary ---
Demographics + + + | Address | [address] [place] [address] Ln | | | [place] [address] | + + + | Home Phone [...] | | | | | [place] [address] | | + + + + + Care Team Providers + +------+ + | Care Flight Engineer Manager Name | Role | Phone | [...] | 2006 | | at [facility] | MD [address] | | | | | [address] | [place], [place] | | | | | [facility] | [address] | | | | | and Healing, | [phone] | | | | | Building | | | | | | Floor [facility] [place] | | | | | | [address] | | | | | | [phone] | | | +--------+--------+ + + + [...]
--- OUTSIDE RECORDS SUMMARY | ~2020-02-24 | XMS | Encounter Summary ---
Demographics + + + | Address | [address] [place] [address] Ln | | | [place] [address] | + + + | Home Phone [...] | | | | | [place] [address] | | + + + + + Care Team Providers + +------+ + | Care Global Climate Change Analyst Name | Role | Phone | [...] as of this encounter Progress Notes Interface, C Python Developer In - 03/14/2006 1:05 AM PDTCLINIC DATE: 05/27/2002 [facility] SUBJECTIVE: A 61-year-old female presents for [...] microalbumin. Eladio Lynch M.D. ROSIE / KIMBERLEY [id number] / [id number] / [id number] / Tdocumented in this encounter Plan of Treatment Not on filedocumented as of this encounter Visit Diagnoses Not on filedocumented in this encounter"
--- OUTSIDE RECORDS SUMMARY | ~2020-02-24 | XMS | Encounter Summary ---
Demographics + + + | Address | [address] [place] [address] Ln | | | [place] [address] | + + + | Home Phone [...] | | | | | [place] [address] | | + + + + + Care Team Providers + +------+ + | Care Folder Seamer Name | Role | Phone | + [...] Description | +--------+--------+ + + + | 04/17/ | Refill | [facility] | Lynch, Eladio, | Refill Request | | 2006 | | at [facility] | MD [address] | | | | | [address] | [place], [place] | | | | | [facility] | [address] | | | | | and Healing, | [phone] | | | | | Building | | | | | | Floor [facility] [place] | | | | | | [address] | | | | | | [phone] | | | +--------+--------+ + + + [...]
--- OUTSIDE RECORDS SUMMARY | ~2020-02-24 | XMS | Encounter Summary ---
Demographics + + + | Address | [address] [place] [address] Ln | | | [place] [address] | + + + | Home Phone [...] | | | | | [place] [address] | | + + + + + Care Team Providers + +------+ + | Care Hot Mix Operator Name | Role | Phone | + +------+ + | Eladio Lynch MD | PCP | | + +------+ + Encounter Details +--------+ + + + + | Date | Type | Department | Care Team | Description | +--------+ + + + + | 08/08/ | Results | [facility] | Eladio Lynch, | | | 2000 | Only | Medicine at [facility] | [address] | | | | | [place] [address] | [place], [place] | | | | | [address] | [address] | | | | | Mailcode: MINDY Albarran | [phone] | | | | | [address] | | | | | | [place], [place] | | | | | | [address] | | | | | | [phone] | | | +--------+ + + + [...] + | HEMOGLOBIN A1C, | Routin | 08/08/2000 | | Results for this | | BLOOD | e | 12:02 PM | | procedure are in the | | | | PST | | results section. | + +--------+ + + + | LIBRARY CATALOGING TECHNICIAN CYTOLOGY (PAP) | Routin | 08/08/2000 | | Results for this | | | e | | | procedure are in the | | | | | | results section. | + +--------+ + + + documented in this encounter Results HEMOGLOBIN A1C (08/08/2000 12:02 PM PST) + +---------+ + + + | Component | Value | Ref Range | Performed | Pathologist | | | | | At | Signature | + +---------+ + + + | HEMOGLOBIN | 7.7 (H) | <7.1 % | | | [...] | + + + + + | [facility] | [address] | [place] [address] | | | LABORATORY | | | | + + + + + LIBRARY CATALOGING TECHNICIAN CYTOLOGY (PAP) (08/08/2000) + + + + + + | Component | Value | Ref Range | Performed | Pathologist | | | | | At | Signature | + + + + + + | LIBRARY CATALOGING TECHNICIAN | SOURCE OF SPECIMEN: | | [facility] | | | CYTOLOGY | CervicalReason for | | DEPARTMENT | | | | Examination: Routine | | OF | | | | Pap SmearCLINICAL | | PATHOLOGY | | | | HISTORY: [id number] | | | | | | many weeks: 25Previous | | | | | | Diagnosis and/or | | | | | | Therapy: Within Normal | | | | | | Limits | | | | | | Interpretation:Within | | | | | | normal limits. | | | | | | Adequacy:Satisfactory | | | | | | for evaluation.Comment: | | | | | | SOURCE OF SPECIMEN: | | | | | | Cervical and/or Vaginal | | | | | | Smear, 1 slide | | | | + + + + + + + + | Specimen | + + | | + + + + + + + | Performing | Address | City/State/Zipcode | Phone Number | | Organization | | | | + + + + + | [facility] | [address] [facility] | [place] [address] | | | PATHOLOGY | [address] | | | + + + + + | [facility] | [address] [facility] | [place] [address] | | | PATHOLOGY | [address] | | | + + + + + documented in this encounter Visit Diagnoses Not on filedocumented in this encounter"
--- OUTSIDE RECORDS SUMMARY | ~2020-02-24 | XMS | Encounter Summary ---
Demographics + + + | Address | [address] [place] [address] Ln | | | [place] [address] | + + + | Home Phone [...] | | | | | [place] [address] | | + + + + + Care Team Providers + +------+ + | Care Inorganic Chemistry Professor Name | Role | Phone | + [...] as of this encounter Progress Notes Interface, National Secretary In - 07/30/2006 5:12 AM PSTCLINIC DATE: 11/23/1998 [facility] SUBJECTIVE: Ms. Toth is here today to [...]
--- OUTSIDE RECORDS SUMMARY | ~2020-02-24 | XMS | Encounter Summary ---
Demographics + + + | Address | [address] [place] [address] Ln | | | [place] [address] | + + + | Home Phone | | + + + | Preferred Language | Unknown | + + + | Marital Status | | + + + | Mu-Ism Affiliation | LINDSAY | + + + | Race | White | + + + | Ethnic Group | Not or | + + + Author + + + | Author | [facility] | + + + | Organization | [facility] | + + + | Address | Unknown | + + + | Phone | Unavailable | + + + Support + + + + + | Name | Relationship | Address | Phone | + + + + + | Jeni Shirley | ECON | [place] | | | | | [place] [address] | | + + + + + Care Team Providers + +------+ + | Care Communication Skills Instructor Name | Role | Phone | [...] | 2005 | Visit | Medicine at [facility] | [address] | (Primary Dx); SOB | | | | Uri[place] [address] | [place], [place] | (Shortness of | | | | [address] | [address] | Breath) | | | | Mailcode: MINDY Albarran | [phone] | | | | | [address] | | | | | | [place], [place] | | | | | | [address] | | | | | | [phone] | | | +--------+---------+ + + + [...] tenderness with light palpation Ext: no edema I3Amr=74% NCV=649 A/P: Ms. Toth is a 65yo woman with worsening shortness of breath for the last 2 weeks. She appears to be in no acute distress. Patient was advised that her Albuterol should be us ed acutely, and the QVAR works as a detention steroid. This may help her symptoms. We [...]
--- OUTSIDE RECORDS SUMMARY | ~2020-02-24 | XMS | Encounter Summary ---
Demographics + + + | Address | [address] [place] [address] Ln | | | [place] [address] | + + + | Home Phone [...] | | | | | [place] [address] | | + + + + + Care Team Providers + +------+ + | Care Production Metal Sprayer Name | Role | Phone | + [...] as of this encounter Progress Notes Interface, Wireless Watcher In - 08/16/2006 3:07 AM PSTCLINIC DATE: 05/29/1998 [facility] SUBJECTIVE: The patient was seen and examined in the hematology oncology clinic for evaluation and management of non-small cell lung cancer. Ms. Toth is a 57-year-old white female whose daughter works in the radiation oncology department here at [facility]. The patient was in her usual state [...] hemoptysis following bronchoscopy which was performed at [facility] in [place], [place]. Bronchoscopy is said to have shown no endobronchial lesions and several blind biopsies were obtained, which were negative for any neoplastic cells. Ms. Toth was referred for CT-guided biopsy of her lung mass, which was carried out in [place], [place], and which is said to have [...] patient is retired, previously worked in a [employer], and has not been exposed to chemicals. She quit smoking four days ago and was smoking one and a half packs per day for the last 40 years, for a 89-watq-ypnt smoking history. She drinks alcohol occasionally. She [...] has suggested that she drive up to [place], [place] and obtain the x-rays, bone scan, [...] or "EOS") versus open surgical procedure by [place] resection of the paratracheal nodes. Ms. Toth and her family have had an opportunity to ask questions. Their questions have been answered and they understand the assessment and plan. RECOMMENDATION: Return to [place], [place] to obtain chest x-ray, CT, bone scan, laboratory studies, pathology slides and tissue block. These will be brought to [facility] for review in the early part of [...] next week or two. Xuan Taylor M.D. Compressor Engineer, Medicine HR/roxief cc: Eladio Lynch M.D. Manufacturing Assistant, Family Medicine documented in this encounter Plan of Treatment Not on filedocumented as of this encounter Visit Diagnoses Not on filedocumented in this encounter
--- OUTSIDE RECORDS SUMMARY | ~2020-02-24 | XMS | Encounter Summary ---
Demographics + + + | Address | [address] [place] [address] Ln | | | [place] [address] | + + + | Home Phone [...] | | | | | [place] [address] | | + + + + + Care Team Providers + +------+ + | Care Grain Trimmer Name | Role | Phone | [...] Request | | 2006 | | at [facility] | MD [address] | | | | | [address] | [place], [place] | | | | | [facility] | [address] | | | | | and Healing, | [phone] | | | | | Building | | | | | | Floor [facility] [place] | | | | | | [address] | | | | | | [phone] | | | +--------+--------+ + + + [...]
--- OUTSIDE RECORDS SUMMARY | ~2020-02-24 | XMS | Encounter Summary ---
Demographics + + + | Address | [address] [place] [address] Ln | | | [place] [address] | + + + | Home Phone [...] | | | | | [place] [address] | | + + + + + Care Team Providers + +------+ + | Care Sign Painter Name | Role | Phone | + +------+ + | Eladio Lynch MD | PCP | | + +------+ + Encounter Details +--------+ + + + + | Date | Type | Department | Care Team | Description | +--------+ + + + + | 03/14/ | Ancillary | Registration [id number] | Eladio Lynch, | | | 2004 | Registratio | [facility] [address] | [address] | | | | n | Jusitn Mailcode: [id number] | [place], [place] | | | | | [place] | [address] | | | | | [address] | [phone] | | | | | [phone] | | | +--------+ + + + [...] + | COMPLETE METABOLIC | Routin | 03/14/2005 | | Results for this | | SET | e | 6:15 PM | | procedure are in the | | (NA,K,CL,CO2,BUN,CRE | | PDT | | results section. | | AT,GLUC,CA,AST,ALT,B | | | | | | OVIDIO TOTAL,ALK | | | | | | PHOS,ALB,PROT TOTAL) | | | | | + +--------+ + + + | PHOSPHORUS, PLASMA | Routin | 03/14/2005 | | Results for this | | | e | 6:15 PM | | procedure are in the | | | | PDT | | results section. | + +--------+ + + + | MAGNESIUM, PLASMA | Routin | 03/14/2005 | | Results for this | | | e | 6:15 PM | | procedure are in the | | | | PDT | | results section. | + +--------+ + + + documented in this encounter Results MAGNESIUM, PLASMA (03/14/2005 6:15 PM PDT) + +-------+ + + + | Component | Value | Ref Range | Performed | Pathologist | | | | | At | Signature | + +-------+ + + + | MAGNESIUM,P | 1.8 | 1.8 - 2.5 mg/dL | [facility] | | | LASMA | | | DEPARTMENT | | | | | | OF | | | | | | PATHOLOGY | | + +-------+ + + + + + | Specimen | + + | | + + + + + + + | Performing | Address | City/State/Zipcode | Phone Number | | Organization | | | | + + + + + | [facility] DEPARTMENT OF | [address] | [place] [address] | | | PATHOLOGY | [address] | | | + + + + + | [facility] DEPARTMENT [facility] | [address] | [place] [address] | | | PATHOLOGY | [address] | | | + + + + + PHOSPHORUS, PLASMA (03/14/2005 6:15 PM PDT) + +-------+ + + + | Component | Value | Ref Range | Performed | Pathologist | | | | | At | Signature | + +-------+ + + + | PHOSPHORUS, | 3.8 | 2.4 - 4.7 mg/dL | [facility] | | | PLASMA | | | [...] | + + + + + | [facility] | [address] [facility] | [place] [address] | | | PATHOLOGY | [address] | | | + + + + + | [facility] | [address] [place] [address] | [place] [address] | | | PATHOLOGY | [address] | | | + + + + + COMP METABOLIC SET (03/14/2005 6:15 PM PDT) + +---------+ + + + | Component | Value | Ref Range | Performed | Pathologist | | | | | At | Signature | + +---------+ + + + | GLUCOSE, | 62 (L) | 65 - 110 mg/dL | [facility] | | | PLASMA | | | DEPARTMENT | | | (LAB) | | | OF | | | | | | PATHOLOGY | | + +---------+ + + + | BUN, PLASMA | 12 | 6 - 20 mg/dL | [facility] | | | (LAB) | | | DEPARTMENT | | | | | | OF | | | | | | PATHOLOGY | | + +---------+ + + + | CREATININE | 1.1 | 0.6 - 1.1 mg/dL | [facility] | | | PLASMA | | | DEPARTMENT | | | (LAB) | | | OF | | | | | | PATHOLOGY | | + +---------+ + + + | TOTAL | 8.4 (H) | 6.1 - 7.9 g/dL | [facility] | | | PROTEIN, | | | DEPARTMENT | | | PLASMA | | | OF | | | (LAB) | | | PATHOLOGY | | + +---------+ + + + | ALBUMIN, | 4.3 | 3.5 - 4.7 g/dL | [facility] [...] + + + | ALK PHOS | 114 | 53 - 141 U/L | [facility] | | | | | | DEPARTMENT | | | | | | OF | | | | | | PATHOLOGY | | + +---------+ + + + | AST(SGOT) | 34 | 15 - 41 U/L | [facility] [...] +---------+ + + + | POTASSIUM, | 3.9 | 3.5 - 5.1 | [facility] | | | PLASMA | | mmol/L | DEPARTMENT | | | (LAB) | | | OF | | | | | | PATHOLOGY | | + +---------+ + + + | CHLORIDE, | 97 (L) | 98 - 107 mmol/L | [facility] [...] + + + | ALT (SGPT) | 14 | 13 - 48 U/L | [facility] [...] | + + + + + | [facility] | [address] | [place] [address] | | | PATHOLOGY | [address] | | | + + + + + | [facility] | [address] | [place] [address] | | | PATHOLOGY | [address] | | | + + + + + documented in this encounter Visit Diagnoses Not on filedocumented in this encounter"
--- OUTSIDE RECORDS SUMMARY | ~2020-02-24 | XMS | Encounter Summary ---
Demographics + + + | Address | [address] [place] [address] Ln | | | [place] [address] | + + + | Home Phone [...] | | | | | [place] [address] | | + + + + + Care Team Providers + +------+ + | Care Supervisor Fur Dressing Name | Role | Phone | + [...] | +--------+ + + + + | // | Telephone | [facility] | Eladio Lynch, | Refill Request | | 2013 | | at [facility] | MD [address] | | | | | [address] | [place], [place] | | | | | [facility] | [address] | | | | | and Healing, | [phone] | | | | | [facility] | | | | | | Floor [facility] [place] | | | | | | [address] | | | | | | [phone] | | | +--------+ + + + [...] + | Diagnosis | + + | Anxiety - Primary Anxiety state, unspecified | + + | Depression Depressive disorder, not elsewhere classified | + + documented in this encounter"
--- OUTSIDE RECORDS SUMMARY | ~2020-02-24 | XMS | Encounter Summary ---
Demographics + + + | Address | [address] [place] [address] Ln | | | [place] [address] | + + + | Home Phone | | + + + | Preferred Language | Unknown | + + + | Marital Status | | + + + | Sabianism Affiliation | LINDSAY | + + + | Race | White | + + + | Ethnic Group | Not or | + + + Author + + + | Author | [facility] | + + + | Organization | [facility] | + + + | Address | Unknown | + + + | Phone | Unavailable | + + + Support + + + + + | Name | Relationship | Address | Phone | + + + + + | Jeni Shirley | ECON | [place] | | | | | [place] [address] | | + + + + + Care Team Providers + +------+ + | Care Paper Bag Inspector Name | Role | Phone | + +------+ + | Elaido Lynch MD | PCP | | + +------+ + Reason for Visit + + + | Reason | Comments | + + + | Follow-up encounter | | + + + | Pain | low back and hips | + + + Encounter Details +--------+---------+ + + + | Date | Type | Department | Care Team | Description | +--------+---------+ + + + | 02/17/ | Office | [facility] Primary Care | Eladio Lynch, | Unspecified Backache | | 2007 | Visit | at [facility] | MD [address] | (Primary Dx) | | | | [address] | [place], [place] | | | | | [facility] | [address] | | | | | and [place], | [phone] | | | | | | | | | | | [place], [place] | | | | | | [address] | | | | | | [phone] | | | +--------+---------+ + + + [...] + + + | Blood Pressure | 104/60 | 02/18/2008 1:08 PM | | | | | PDT | | + + + + + | Pulse | 106 | 02/18/2008 1:08 PM | | | | | PDT [...] + + + + | Weight | 84.8 kg (187 lb) | 02/18/2008 1:08 PM | | | | | PDT | | + + + + + | Height | - | - | | + + + + + | Body Mass Index | 35.33 | 07/23/2007 1:28 PM | | | | | PST | | + + + + + documented in this encounter Progress Notes Eladio Lynch - 02/18/2008 1:19 PM PDTFormatting of this note might be different from t gonzalez original. ID: Martha Toth is a 67 y.o. Female CC: niddm, chronic pain HPI: Martha Toth is planning on moving this week. We are discussing transfer of meds and c are. She would like a medical rpescription for AC, as she is moving to [facility]. Patient Active Problem List Diagnoses Code UNSPECIFIED [...] prior to encounter Medication Sig Dispense Refill Albuterol (Refill) 90 [...] by oral route once daily 30 12 Allergies Allergen Reactions Clarification Needed MILK,BEES, PCN,BLOOD Penicillins Hives Physical Examination Blood pressure 104/60, pulse 106, weight 84.823 kg (187 lbs). Patient is alert and oriented times three. no apparent distress Cv- rrr resp- cta Ext no edema Toes - 2 sec cap refil. Assessment: Encounter Diagnoses Code Name Primary? 724.5 Unspecified Backache Yes Refill current medications per medication care agreement @ [facility], family medicine as above. Final refil unless plans change. documented in this encou nter Plan of Treatment Not on filedocumented as of this encounter Visit Diagnoses + + | Diagnosis | + + | Backache, unspecified - Primary | + + documented in this encounter
--- OUTSIDE RECORDS SUMMARY | ~2020-02-24 | XMS | Encounter Summary ---
Demographics + + + | Address | [address] [place] [address] Ln | | | [place] [address] | + + + | Home Phone [...] | | | | | [place] [address] | | + + + + + Care Team Providers + +------+ + | Care Plywood Patcher Name | Role | Phone | + [...] Request | | 2007 | | at [facility] | MD [address] | | | | | [address] | [place], [place] | | | | | [facility] | [address] | | | | | and Healing, | [phone] | | | | | Building | | | | | | Floor [facility] [place] | | | | | | [address] | | | | | | [phone] | | | +--------+--------+ + + + [...]
--- OUTSIDE RECORDS SUMMARY | ~2020-02-24 | XMS | Encounter Summary ---
Demographics + + + | Address | [address] [place] [address] Ln | | | [place] [address] | + + + | Home Phone [...] | | | | | [place] [address] | | + + + + + Care Team Providers + +------+ + | Care Compo Caster Name | Role | Phone | + [...] | 2004 | | Medicine at [facility] | [address] | | | | | [place] [address] [facility] | [place], [place] | | | | | [address] | [address] | | | | | Mailcode: MINDY Albarran | [phone] | | | | | [address] | | | | | | [place], [place] | | | | | | [address] | | | | | | [phone] | | | +--------+--------+ + + + [...]
--- OUTSIDE RECORDS SUMMARY | ~2020-02-24 | XMS | Encounter Summary ---
Demographics + + + | Address | [address] [place] [address] Ln | | | [place] [address] | + + + | Home Phone | | + + + | Preferred Language | Unknown | + + + | Marital Status | | + + + | Zoroastrian Affiliation | LINDSAY | + + + [...] | UA | | | | | [place] [address] | | + + + + + Care Team Providers + +------+ + | Care Boring Mill Operator For Metal Name | Role | Phone | + +------+ + | Eladio Lynch MD | PCP | | + +------+ + Encounter Details +--------+ + + + + | Date | Type | Department | Care Team | Description | +--------+ + + + + | 07/06/ | Procedure - | | Record, Operation | Operative Report | | 1997 | | | | | | | Transcribed | | | | +--------+ + + [...] | + +--------+ + + + | OPERATION RECORD | | 07/06/1998 | | Results for this | | | | | | procedure are in the | | | | | | results section. | + +--------+ + + + documented in this encounter Results OPERATION RECORD (07/06/1998) + + | Transcriptions | + + | Interface, Grab Driver In - 08/13/2006 5:12 AM PST | | [place] [address] [facility] | | [place], [place] [address] [place] | | [facility] HospitalOPERATION RECORDMed Rec No.: [id number] Date: | | 07/06/1998Name: Nicholas Toth SURGEON: Nikolay Griffith M.D. | | Professor, Surgery | | Chief, Division of Cardiopulmonary Surgery | | Silvio Richards M.D. | | Instructor, Cardiopulmonary SurgeryASSISTANTS: Butch Doll, | | Le Resident, Cardiopulmonary Surgery | | Mary Wilson M.D. 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 | | Right lower lobectomy. | | Mediastinal lymphadenectomy.SPECIMEN(S) REMOVED: See below.ANESTHESIA: | | General endotracheal anesthesia.INDICATIONS: | | The patient is a 57-year-old femalewho, on a routine chest x-ray, was found to | | have a right lower lobe mass.Bronchoscopy revealed atypical squamous cells. The | | patient's preoperativecomputed tomography scan revealed no paratracheal | | lymphadenopathy ormediastinal disease.FINDINGS: The patient | | had a 3-cm mass in herright lower lobe as a central lesion in the right lower | | lobe. There washilar adenopathy and mediastinal adenopathy which was excised.PROCEDURE: | | The patient was identified and broughtto the operating room | | and placed supine on the operating room table. Thepatient underwent epidural | | catheter placement. The patient underwentanesthesia without difficulty. The | | patient was intubated with a dual-lumenendotracheal tube. The patient had percutaneous | | left radial arterial lineplaced and Butt catheterization. The patient was placed | | in the leftlateral decubitus position. The left neck, chest and abdomen were | | cleaned,prepped and draped in the sterile manner. A right posterior | | lateralthoracotomy was performed in the standard fashion. The chest was | | enteredthrough the sixth interspace. Fissures were dissected along the major andminor | | fissures. Pulmonary artery branches to the right lower lobe wereidentified, | | controlled with #1 silk ties and ligated. These were divided.The pulmonary vein | | branches were identified, ligated and divided. Thebronchus was stapled with the aid | | of a TA55 4.8 stapler. The bronchus wasclosed with interrupted #4-0 Prolene. Once | | the bronchus and the remaininglung were tested for any air leaks, the mediastinal | | pleura was incisedsuperior to the azygous vein. Large right paratracheal lobes were | | excisedand sent to Pathology. Once hemostasis was assured, two chest tubes wereplaced | | in the standard fashion. A 28 Belizean tube was placed superiorly india 32 Belizean | | posteriorly were anchored to the skin with #3-0 nylon,pericostal sutures of #1 | | Vicryl. Suture of #0 Vicryl was used for themuscular layers and superficial | | thoracic fascia. The skin was approximatedwith #0 Vicryl suture also. The patient's | | incision was covered withSteri-Strips, 4 x 4s and Elastoplast tape.The patient was | | extubated and taken to the Post Anesthesia Care Unit instable condition.There were | | no complications.All counts were correct.Dr. Griffith was present for all critical | | areas of the case.Le Berry M.D.Resident, | | Cardiopulmonary Surgery Professor, Surgery Chief, | | Division of Cardiopulmonary SurgerySKS/alsD: | | 07/06/1998T: 07/06/1998 1:33 Pcc: | |patient underwent epidural catheter placement. The patient underwent | |anesthesia without difficulty. The patient was intubated with a dual-lumen | |endotracheal tube. The patient had percutaneous left radial arterial line | |placed and Butt catheterization. The patient was placed in the left | |lateral decubitus position. The left neck, chest and abdomen were cleaned, | |prepped and draped in the sterile manner. A right posterior lateral | |thoracotomy was performed in the standard fashion. The chest was entered | |through the sixth interspace. Fissures were dissected along the major and | |minor fissures. Pulmonary artery branches to the right lower lobe were | |identified, controlled with #1 silk ties and ligated. These were divided. | |The pulmonary vein branches were identified, ligated and divided. The | |bronchus was stapled with the aid of a TA55 4.8 stapler. The bronchus was | |closed with interrupted #4-0 Prolene. Once the bronchus and the remaining | |lung were tested for any air leaks, the mediastinal pleura was incised | |superior to the azygous vein. Large right paratracheal lobes were excised | |and sent to Pathology. Once hemostasis was assured, two chest tubes were | |placed in the standard fashion. A 28 Belizean tube was placed superiorly and | |a 32 Belizean posteriorly were anchored to the skin with #3-0 nylon, | |pericostal sutures of #1 Vicryl. Suture of #0 Vicryl was used for the | |muscular layers and superficial thoracic fascia. The skin was approximated | |with #0 Vicryl suture also. The patient's incision was covered with | |Steri-Strips, 4 x 4s and Elastoplast tape. | | | |The patient was extubated and taken to the Post Anesthesia Care Unit in | |stable condition. | | | |There were no complications. | | | |All counts were correct. | | | |Dr. Griffith was present for all critical areas of the case. | | | | | | | |Le Berry M.D. | |Resident, Cardiopulmonary Surgery Professor, Surgery | | Chief, Division of Cardiopulmonary | | Surgery | | | |SKS/ghada | | | | P | | | |cc: | + + documented in this encounter Visit Diagnoses Not on filedocumented in this encounter"
--- OUTSIDE RECORDS SUMMARY | ~2020-02-24 | XMS | Encounter Summary ---
Demographics + + + | Address | [address] [place] [address] Ln | | | [place] [address] | + + + | Home Phone [...] | | | | | [place] [address] | | + + + + + Care Team Providers + +------+ + | Care Machine Operator Hay Stacker Name | Role | Phone | + [...] as of this encounter Progress Notes Interface, Scientific Helper In - 06/26/2006 5:25 AM PSTCLINIC DATE: 11/29/1999 [facility] SUBJECTIVE: Ms. Thomas is here for [...] her symptoms. Eladio Lynch M.D. ROSIE / [id number] / [id number] / [id number] / [id number] signed by Interface, Scientific Helper In at 06/26/2006 5:25 AM PSTdocume nted in this encounter Plan of Treatment Not on filedocumented as of this encounter Visit Diagnoses Not on filedocumented in this encounter"
--- OUTSIDE RECORDS SUMMARY | ~2020-02-24 | XMS | Encounter Summary ---
Demographics + + + | Address | [address] [place] [address] Ln | | | [place] [address] | + + + | Home Phone | | + + + | Preferred Language | Unknown | + + + | Marital Status | | + + + | Gnosticism Affiliation | LINDSAY | + + + [...] | | | | | [place] [address] | | + + + + + Care Team Providers + +------+ + | Care Superintendent Division Name | Role | Phone | + [...] as of this encounter Progress Notes Interface, Special Education Secretary In - 03/06/2005 6:20 AM PDTClinic Date: 01/21/2004 [facility] Subjective: Ms. Toth is here today for [...] examination. Eladio Lynch M.D. ROSIE / [place] [id number] / [id number] / [id number] / Tdocumented in this encounter Plan of Treatment Not on filedocumented as of this encounter Visit Diagnoses Not on filedocumented in this encounter"
--- OUTSIDE RECORDS SUMMARY | ~2020-02-24 | XMS | Encounter Summary ---
Demographics + + + | Address | [address] [place] [address] Ln | | | [place] [address] | + + + | Home Phone [...] | | | | | [place] [address] | | + + + + + Care Team Providers + +------+ + | Care Soap Boiler Name | Role | Phone | + [...] as of this encounter Progress Notes Interface, Masonry Supervisor In - 03/01/2006 1:02 AM PDTCLINIC DATE: 01/20/2003 [facility] SUBJECTIVE: Ms. Toth is here for a routine followup of her diabetes. She acknowledges a lack of effort at checking her glycemia control on a regular basis. She is concerned about the need for insulin. CURRENT MEDICATIONS: She currently is on the following diabetic medications: 1. Metformin 850 t.i.d. 2. Glipizide 20 mg b.i.d. 3. Avandia 4 mg b.i.d. ADDITIONAL MEDICATIONS: Additional medications include, 1. Albuterol. 2. Atrovent. 3. Flovent. 4. Nasonex. 5. Amitriptyline. 6. Zantac. 7. Zoloft. 8. Claritin. 9. Hydrocodone 4 tablets daily. 10. Neurontin 300 mg t.i.d. OBJECTIVE VITAL SIGNS: Her blood pressure is 140/82, pulse 100, respirations 20, and weight 168 pounds. CARDIAC: Regular rate and rhythm. LUNGS: Clear to auscultation bilaterally. NECK: Free from bruits. EXTREMITIES: Her lower extremities have trace pedal edema. Good dorsal pedal pulse. Very faint mottling with a good capillary refill. ASSESSMENT: Jkr-pprfeyh-oqqodobjt diabetes mellitus. PLAN 1. Ophthalmology visit. Refill her controlled substances on a monthly or bimonthly basis and see her back as needed. 2. Tobacco cessation greater than 2-1/2 years now. She was congratulated on that. 3. Allergies seem to be remaining in check. We will continue to see her bimonthly to talk about issues. Eladio Lynch M.D. [facility] / [id number] / [id number] / [id number] / [id number] Tdocumented in this encounter Plan of Treatment Not on filedocumented as of this encounter Visit Diagnoses Not on filedocumented in this encounter"
--- OUTSIDE RECORDS SUMMARY | ~2020-02-24 | XMS | Encounter Summary ---
Demographics + + + | Address | [address] [place] [address] Ln | | | [place] [address] | + + + | Home Phone [...] | | | | | [place] [address] | | + + + + + Care Team Providers + +------+ + | Care International Marketing Specialist Name | Role | Phone | + +------+ + PCP | Unavailable | + +------+ + Encounter Details +--------+ + + + + | Date | Type | Department | Care Team | Description | +--------+ + + + + | 07/12/ | Office | [facility] | Note, [...] as of this encounter Progress Notes Interface, Safe Expert In - 03/06/2005 8:55 AM PDT [id number] TARI JAVI [facility] Date: 07/12/2004 [facility] Chief Complaint: Ms. Toth is here with a 1-1/2-week history of progressive cough, she generally gets once or twice in the winter. She is no longer a smoker but continues to have chronic bronchitis with mild to moderate reactive airways disease. 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 Past Medical History: Musculoskeletal pain for which she is on a medication care agreement that is hydrocodone 7.5/750 one p.o. t.i.d. with Soma one p.o. t.i.d. Objective Vital Signs: Her blood pressure is 120/60, weight 169 pounds, and CBG 135. General: She is alert and oriented x4. Lungs: Rhonchi through both perdomo with no decreased breath sounds and no isolated changes with respect to egophony or pectoriloquy. Assessment 1. Bronchitis in a woman with chronic bronchitis. 2. Reactive airways disease. 3. Diabetes. Plan 1. To use erythromycin for 10 days and for followup if necessary. 2. Medication care agreement refilled her one month with one refill. 3. Followup in 2 months. Eladio Lynch M.D. ROSIE / [place]BER[place] [id number] / [id number] / [id number] / documented i n this encounter Plan of Treatment Not on filedocumented as of this encounter Visit Diagnoses Not on filedocumented in this encounter"
--- OUTSIDE RECORDS SUMMARY | ~2020-02-24 | XMS | Encounter Summary ---
Demographics + + + | Address | [address] [place] [address] Ln | | | [place] [address] | + + + | Home Phone [...] | | | | | [place] [address] | | + + + + + Care Team Providers + +------+ + | Care Oxygen Equipment Technician Name | Role | Phone | [...] | | 2005 | | Medicine at [facility] | [address] | | | | | [place] [address] [facility] | [place], [place] | | | | | [address] | [address] | | | | | Mailcode: [place] | [phone] | | | | | [address] | | | | | | [place], [place] | | | | | | [address] | | | | | | [phone] | | | +--------+--------+ + + + [...]
--- OUTSIDE RECORDS SUMMARY | ~2020-02-24 | XMS | Encounter Summary ---
Demographics + + + | Address | [address] [place] [address] Ln | | | [place] [address] | + + + | Home Phone [...] | | | | | [place] [address] | | + + + + + Care Team Providers + +------+ + | Care Fish And Wildlife Warden Name | Role | Phone | + +------+ + | Eladio Lynch MD | PCP | | + +------+ + Encounter Details +--------+ + + + + | Date | Type | Department | Care Team | Description | +--------+ + + + + | 12/12/ | DELETED | [facility] | Eladio Lynch, | CONSENTS | | 2006 | TRANSCRIPTI | at [facility] | [address] | | | | ON | [address] | [place], [place] | | | | | [facility] | [address] | | | | | and Healing, | [phone] | | | | | | | | | | | Floor [place], [place] | | | | | | [address] | | | | | | [phone] | | | +--------+ + + + [...]
--- OUTSIDE RECORDS SUMMARY | ~2020-02-24 | XMS | Encounter Summary ---
Demographics + + + | Address | [address] [place] [address] Ln | | | [place] [address] | + + + | Home Phone | | + + + | Preferred Language | Unknown | + + + | Marital Status | | + + + | Hindu Affiliation | LINDSAY | + + + [...] | | | | | [place] [address] | | + + + + + Care Team Providers + +------+ + | Care Talent Associate Name | Role | Phone | [...] To | | 2008 | | at [facility] | MD [address] | Patient | | | | [address] | [place], [place] | | | | | [facility] | [address] | | | | | and Healing, | [phone] | | | | | | | | | | | Floor [place], [place] | | | | | | [address] | | | | | | [phone] | | | +--------+ + + + [...]
--- OUTSIDE RECORDS SUMMARY | ~2020-02-24 | XMS | Encounter Summary ---
Demographics + + + | Address | [address] [place] [address] Ln | | | [place] [address] | + + + | Home Phone | | + + + | Preferred Language | Unknown | + + + | Marital Status | | + + + | Episcopal Affiliation | LINDSAY | + + + | Race | White | + + + | Ethnic Group | Not or | + + + Author + + + | Author | [facility] | + + + | Organization | [facility] | + + + | Address | Unknown | + + + | Phone | Unavailable | + + + Support + + + + + | Name | Relationship | Address | Phone | + + + + + | Jeni Shirley | ECON | UA | | | | | [place] [address] | | + + + + + Care Team Providers + +------+ + | Care Assistant Store Manager Operations Name | Role | Phone | + +------+ + | Eladio Lynch MD | PCP | | + +------+ + Encounter Details +--------+ + + + + | Date | Type | Department | Care Team | Description | +--------+ + + + + | 06/05/ | Office | [facility] | Note, [...] of this encounter Progress Notes Interface, Watch Inspector Final Movement In - 01/11/2006 1:05 AM PDTClinic Date: 06/05/2003 [facility] Subjective: Ms. Toth is here for a refill of her controlled substances for chronic functional back pain. She has been on and has an agreement and material-risk form signed for 2 prescriptions: One, Vicodin 5/500 one p.o. q.i.d., #120, with 1 refill and Soma 1 p.o. t.i.d. #90 with one refill. These are used on a scheduled basis with refills every 2 months. She comes in in the interim to care for her other problems, including 1. Diabetes. 2. Reactive airway disease. 3. History of lung malignancy with right lobectomy in 1997. She is no longer using tobacco as of July 2001. SHE HAS INTOLERANCE TO ANTI-INFLAMMATORIES. Physical Examination Vital Signs: Unchanged with stable vital signs. General: She is alert and oriented x 4. Assessment: Chronic pain. Plan: Refill medications for one month with one refill. Follow up in 2 months. Eladio Lynch M.D. ROSIE / [place]BER[place] [id number] / [id number] / [id number] / Tdocumented in this encounter Plan of Treatment Not on filedocumented as of this encounter Visit Diagnoses Not on filedocumented in this encounter"
--- OUTSIDE RECORDS SUMMARY | ~2020-02-24 | XMS | Encounter Summary ---
Demographics + + + | Address | [address] [place] [address] Ln | | | [place] [address] | + + + | Home Phone | | + + + | Preferred Language | Unknown | + + + | Marital Status | | + + + | Latter Day Affiliation | LINDSAY | + + + | Race | White | + + + | Ethnic Group | Not or | + + + Author + + + | Author | [facility] | + + + | Organization | [facility] | + + + | Address | Unknown | + + + | Phone | Unavailable | + + + Support + + + + + | Name | Relationship | Address | Phone | + + + + + | Jeni Shirley | ECON | [place] | | | | | [place] [address] | | + + + + + Care Team Providers + +------+ + | Care Cashier Parking Lot Name | Role | Phone | + +------+ + PCP | Unavailable | + +------+ + Encounter Details +--------+ + + + + | Date | Type | Department | Care Team | Description | +--------+ + + + + | 03/19/ | Results | [facility] | Eladio Lynch, | | | 2003 | Only | Medicine at [facility] | [address] | | | | | [place] [address] | [place], [place] | | | | | [address] | [address] | | | | | Mailcode: MINDY Albarran | [phone] | | | | | [address] | | | | | | [place], [place] | | | | | | [address] | | | | | | [phone] | | | +--------+ + + + [...] | + + + + + | [facility] | [address] | [place] [address] | | | LABORATORY | | | [...] by | | | | | | [facility] | | | | | | [facility]. | | | | + + + + + + + + | Specimen | + + | | + + + + + + + | Performing | Address | City/State/Zipcode | Phone Number | | Organization | | | | + + + + + | [facility] | [address] | [place] [address] | | | LABORATORY | | | [...] | + + + + + | [facility] | [address] [facility] | [place] [address] | | | PATHOLOGY | [address] | | | + + + + + | [facility] | [address] [facility] | [place] [address] | | | PATHOLOGY | [address] [...] + + | [facility] | [address] | [place] [address] | | | PATHOLOGY | [address] | | | + + + + + | [facility] | [address] | [place] [address] | | | PATHOLOGY | [address] | | | + + + + + documented in this encounter Visit Diagnoses Not on filedocumented in this encounter"
--- OUTSIDE RECORDS SUMMARY | ~2020-02-24 | XMS | Encounter Summary ---
Demographics + + + | Address | [address] [place] [address] Ln | | | [place] [address] | + + + | Home Phone [...] | | | | | [place] [address] | | + + + + + Care Team Providers + +------+ + | Care Material Requirements Worker Name | Role | Phone | [...] Request | | 2005 | | at [facility] | MD [address] | | | | | [address] | [facility] [place] | | | | | [facility] | [address] | | | | | and Healing, | [phone] | | | | | Building | | | | | | Floor [facility] [place] | | | | | | [address] | | | | | | [phone] | | | +--------+--------+ + + + [...]
--- OUTSIDE RECORDS SUMMARY | ~2020-02-24 | XMS | Encounter Summary ---
Demographics + + + | Address | [address] [place] [address] Ln | | | [place] [address] | + + + | Home Phone | | + + + | Preferred Language | Unknown | + + + | Marital Status | | + + + | Voodoo Affiliation | LINDSAY | + + + [...] | UA | | | | | [place] [address] | | + + + + + Care Team Providers + +------+ + | Care Air Crew Supervisor Name | Role | Phone | [...] | Transcriptions | + + | Interface, Business Computers Teacher In - 08/13/2006 5:12 AM PST | | [place] [address] [address] [facility] | | [place], [place] [address] Mobile | | [facility] CenterOPERATION RECORDMed Rec No.: [id number] Date: | | 07/06/1998Name: Nicholas Toth SURGEON: Nikolay Griffith M.D. | | Professor, Surgery | | Chief, Division of Cardiopulmonary Surgery | | Silvio Richarsd M.D. | | Instructor, Cardiopulmonary SurgeryASSISTANTS: Butch [...] | in the standard fashion. A 28 South Sudanese tube was placed superiorly ind[place] 32 [place]ese | | posteriorly were anchored to the [...] |placed in the standard fashion. A 28 South Sudanese tube was placed superiorly and | |a 32 South Sudanese posteriorly were anchored to the skin with [...]
--- OUTSIDE RECORDS SUMMARY | ~2020-02-24 | XMS | Encounter Summary ---
Demographics + + + | Address | [address] [place] [address] Ln | | | [place] [address] | + + + | Home Phone [...] | | | | | [place] [address] | | + + + + + Care Team Providers + +------+ + | Care Vinyl Hanger Name | Role | Phone | + [...] as of this encounter Progress Notes Interface, Ecommerce Analyst In - 06/24/2006 5:23 AM PSTCLINIC DATE: 01/25/2000 [facility] SUBJECTIVE: Ms. Toth is [...] NEUROLOGIC: Good sensation throughout all dermatomes. ASSESSMENT: Ndh-rhvupsj-advklfpfl diabetes mellitus. PLAN: Urine for microalbumin, metabolic panel, and hemoglobin A1c. We will refill her medications and see her back in one month. Eladio Lynch M.D. ROSIE / [place]BER[place] [id number] / [id number] / [id number] / [id number] signed by Interface, Ecommerce Analyst In at 06/24/2006 5:23 AM PSTdocume nted in this encounter Plan of Treatment Not on filedocumented as of this encounter Visit Diagnoses Not on filedocumented in this encounter"
--- OUTSIDE RECORDS SUMMARY | ~2020-02-24 | XMS | Encounter Summary ---
Demographics + + + | Address | [address] [place] [address] Ln | | | [place] [address] | + + + | Home Phone [...] | | | | | [place] [address] | | + + + + + Care Team Providers + +------+ + | Care Orientation And Mobility Instructor Name | Role | Phone | [...] | 2005 | Visit | Medicine at [facility] | [address] | (Primary Dx) | | | | [place] [address] | [place], [place] | | | | | [facility] [address] | [address] | | | | | Mailcode: MINDY Albarran | [phone] | | | | | [address] | | | | | | [place], [place] | | | | | | [address] | | | | | | [phone] | | | +--------+---------+ + + + [...] medication under a [facility] Lynch. Her NIDDM is [...] current medications per medication care agreement @ [facility] ingrid as above. documen mamta in this encounter Plan of Treatment Not on filedocumented as of this encounter Visit Diagnoses + + | Diagnosis | + + | Backache, unspecified - Primary | + + documented in this encounter
--- OUTSIDE RECORDS SUMMARY | ~2020-02-24 | XMS | Encounter Summary ---
Demographics + + + | Address | [address] [place] [address] Ln | | | [place] [address] | + + + | Home Phone [...] | | | | | [place] [address] | | + + + + + Care Team Providers + +------+ + | Care Water Quality Specialist Name | Role | Phone | + +------+ + PCP | Unavailable | + +------+ + Encounter Details +--------+ + + + + | Date | Type | Department | Care Team | Description | +--------+ + + + + | 04/26/ | Office | [facility] | Note, [...] as of this encounter Progress Notes Interface, Forestry Fire Aid In - 03/06/2005 7:57 AM PDT [id number] TARI CALDWELL Clinic Date: 04/26/2004 [facility] Subjective: Ms. Toth is here originally for a flexible sigmoidoscopy. Apparently, she became hypoglycemic after her prep last night and was unable to continue with her prep. This morning, as she is here, we reviewed her diabetes schedule recently transitioned to 70/30 insulin from oral hypoglycemics. She seems to be doing remarkably well. Her evening preprandial CBGs are approximately 88 to 100. Her a.m. CBGs are 120s. She has no other issues aside from increasing frequency of hypoglycemic symptomatology. She also is on a medication care agreement and refilled her Vicodin x1 month. Objective General: She is in no apparent distress. Vital Signs: Currently, her blood pressure is 150/64. She states her pain level is at 10. Assessment: Qcw-vtuyzli-jdqgpcfex diabetes mellitus. Plan: We will decrease her a.m. 70/30 insulin to 16 units. Continue p.m. dosing at 20. We have carefully re-discussed the preparation for her which at this time will include GoLYTELY prior to bed and the enemas in the a.m. We will encourage her to have clear liquids in the evening meal and adjust her insulin according to the scale rather than use the full supply. Eladio Lynch M.D. [facility] / [place] [id number] / [id number] / [id number] / documented i n this encounter Plan of Treatment Not on filedocumented as of this encounter Visit Diagnoses Not on filedocumented in this encounter"
--- OUTSIDE RECORDS SUMMARY | ~2020-02-24 | XMS | Encounter Summary ---
Demographics + + + | Address | [address] [place] [address] Ln | | | [place] [address] | + + + | Home Phone [...] | | | | | [place] [address] | | + + + + + Care Team Providers + +------+ + | Care Freight Car Repairer Name | Role | Phone | + +------+ + PCP | Unavailable | + +------+ + Encounter Details +--------+ + + + + | Date | Type | Department | Care Team | Description | +--------+ + + + + | 01/10/ | Office | [facility] | Note, [...] as of this encounter Progress Notes Interface, Labor Economics Professor In - 03/06/2005 6:06 AM PDT [id number] [facility] Clinic Date: 01/10/2005 Clinic: Subjective: Ms. Toth is a 64-year-old female here for a routine followup visit with a problem list that includes: 1. Chronic back pain, on medication care agreement. 2. Reactive airways disease. 3. Depression. 4. Social stressors. 5. Insomnia. 6. Diabetes. 7. Hemorrhage. 8. History of lung malignancy with right lobectomy. 9. Tobacco cessation in July 2001. Allergies: ALLERGY TO PENICILLIN AND HAS AN INTOLERANCE OF NSAIDS. Social History: She uses no tobacco, alcohol, or recreational drugs. Review of Systems: Noncontributory. Current Medications: 1. Zestril 10 mg daily. 2. Amitriptyline 50 mg 2 nightly. 3. Lasix 40 mg daily. 4. Advair 250. 5. Albuterol. 6. Enteric-coated aspirin. 7. Multiple vitamin. 8. Insulin 70/30, 25 q.a.m. and 20 units nightly. Secondary to insurance loss, her medications were changed this last year to the ones mentioned above. Objective: General: She has no apparent distress. Vital Signs: Blood pressure 128/66, pulse 88, respirations 16, weight 173, CBG 221. Skin: Intact and no open ulcerations, bruises, or lacerations. HEENT: Within normal limits. Her oral mucosa is moist. Cardiac: Regular rate and rhythm. Lungs: Clear to auscultation. Assessment: Sle-hhobmfo-tocalywbh diabetes mellitus. Plan: 1. Reviewed annual needs assessment for her diabetes. 2. Chronic pain. Refilled medication x1 month with 1 refill. Follow up in 2 months. Eladio Lynch M.D. [facility] / [id number] / [id number] / [id number] / Electronically signed by Eladio Lynch 01-31-2005 11:15:56 AM documented i n this encounter Plan of Treatment Not on filedocumented as of this encounter Visit Diagnoses Not on filedocumented in this encounter"
--- OUTSIDE RECORDS SUMMARY | ~2020-02-24 | XMS | Encounter Summary ---
Demographics + + + | Address | [address] | | | [place] [address] | + + + | Home Phone | | + + + | Preferred Language | Unknown | + + + | Marital Status | | + + + | Moravian Affiliation | [phone] | + + + | Race | Unknown | + + + | Ethnic Group | Unknown | + + + Author + + + | Author | [facility] | | | and [place] | + + + | Organization | [facility] | | | and [place] [...] Providers + +------+ + | Care Manager Roofing Name | Role | Phone | + +------+ + | Krista Alvarez | PCP | | | PA | | | + +------+ + Reason for Visit + + + | Reason | Comments | + + + | Follow-up | Discuss injection | + + + Encounter Details +--------+---------+ + + + | Date | Type | Department | Care Team | Description | +--------+---------+ + + + | 01/01/ | Office | [facility] | Alexander Sanchez, | Lumbar radiculopathy | | 2019 | Visit | PHYSIATRY [address] | PA-C [address] | (Primary Dx); | | | | [address] | [address] [place] | Lumbar spondylosis | | | | [address] [address] | [place] [address] | | | | | [address] | [phone] | | | | | [phone] | | | +--------+---------+ + + + [...] in this encounter Patient Instructions Patient Instructions Alexander Sanchez PA-C - 01/01/2019 3:40 PM PDTNew lumbar injection orde red at one level below prior injection. This injection will target the spinal cord narrowing . Please call after 2 weeks if no improvement and I will order injections to target the arthr itis. Lumbar facet arthritis: Facet Pain: Visit this web link for a short, and informative video: [email or web address] The facet joint is located when the vertebrae (bones of the spine) connect to each other. Pain occurs with extension and rotation of the spine (bending backwards and rotating), bend ing over and lifting a heavy load, standing, first things in the morning. Images of the spi ne show facet arthritis, fluid in the facet joints. Treatment included rest, anti-inflammat ories, physical therapy focusing on core strengthening, facet steroid injections. Steroids are a very strong anti-inflammatory, this helps reduce pain by reducing swelling. Complications of steroids are bleeding, infection, and an increase of blood sugars if you are diabetic. middle or intermediate school principal risk can lead to osteoporosis which is why we limited the number of injections to 3 times per year. Facet joints are located when the vertebrae (bones of the spine) connect to each other. Typically these joints can have arthritis in this and give a person centralized low back pain. The procedure takes about 20 minutes. You lie on your b ack and x-rays are taken. Once the region is localized, it is numbed and then injected with steroid. Radiofrequency Ablation (RFA) Burning of the nerves: This procedure is typically done when the steroid injections give excellent initial relief but does not last long. It is the same procedure as the steroid injections however it take s approximately 2 hours to complete. A needle is placed inside the facet joints and then co nnected to a battery pack which heats up the needle to burn the nerves inside the joint. Yo u must not eat after midnight the night before as you are put into procedural sedation where you can hear and talk but do not feel pain. You must have a jinriksha driver to get home from the hospital. You will feel more bruising pain to the location of the needles for approxima tely 4-5 days after this procedure, but once that clears up, you should be pain free for 8 m onths to 2 years, depends on when the nerve grows back. Possible Causes of Low Back or Leg Pain BIG: The symptoms in your back or leg may be due to pressure on a nerve. This pressure may be caused by a damaged disk or by abnormal bone growth. Either way, you may feel pain, burni ng, tingling, or numbness. If you have pressure on a nerve that connects to the sciatic nerv e, pain may shoot down your leg. Pressure from the disk Constant wear and tear can weaken a disk over time and cause back pain. The disk can then b e damaged by a sudden movement or injury. If its soft center starts to bulge, the disk may p ress on a nerve. Or the outside of the disk may tear, and the soft center may squeeze throug h and pinch a nerve. Pressure from bone As a disk wears out, the vertebrae right above and below the disk start to touch. This can put pressure on a nerve. Often, abnormal bone (called bone spurs) grows where the vertebrae rub against each other. This can cause the foramen or the spinal canal to narrow (called alize nosis) and press against a nerve. Date Last Reviewed: 10/05/[id number] [employer]. [address] [place] [address], [place] [address]. All righ ts reserved. This information is not intended as a substitute for professional medical care. Always follow your healthcare professional's instructions. documented in this encounter Progress Notes Alexander Sanchez PA-C - 01/01/2019 3:40 PM PDTFormatting of this note might be different fro m the original. [address] [facility], [address] [place] [address] FAX: PHYSICAL MEDICINE AND REHABILITATION H&P CHIEF COMPLAINT: Chief Complaint Patient presents with Follow-up Discuss injection HISTORY OF PRESENT ILLNESS: The patient is a 78 y.o. female being seen today for complaint s of low back pain with radiation into the legs and bilateral leg weakness that has been wor sening. She underwent a bilateral L4-5 TF ESPERANZA with only 50% relief for one week. She repor ts the pain quickly returned and is now worse than it was before. MRI does show central can al narrowing at L4-5 this an L5-S1 injection should've been ordered. Since the symptoms began, she has noticed that symptoms have been worsening. She describes the pain as a numbing, sharp, throbbing and tingling feeling. She rates the pain as severe. Her symptoms worsen with walking, standing, bending twisting. Her symptoms improve with not molly at this time. The patient also describes leg symptoms that occur on both sides. The leg symptoms account for greater than [...] Diagnosis Date Cataract CHF (congestive heart failure) ([facility]) Childhood asthma Chronic pain CKD (chronic kidney disease) Continuous nicotine dependence COPD (chronic obstructive pulmonary disease) ([facility]) Depression DM type 2 (diabetes mellitus, type 2) ([facility]) GERD (gastroesophageal reflux disease) Hayfever Hyperlipidemia Lumbago Lumbar post-laminectomy syndrome Lung cancer (HCC) 1996 s/p lobectomy on right, early stage OK (myocardial infarction) (HCC) 2011 x3; [facility] Opioid use, unspecified, uncomplicated Osteoporosis Persistent insomnia Polyneuropathy Radiculopathy Ruptured lumbar disc 10/1979 Tobacco use PAST SURGICAL HISTORY: Past Surgical History: Procedure Laterality Date COLONOSCOPY 2008 LUMBAR DISCECTOMY 1980 LUMBAR FUSION 1981 L2-3 grafted pelvic bone to disc LUMBAR LAMINECTOMY L5 LUNG REMOVAL, PARTIAL Right 1996 VENOUS DPLX OR VEIN MAPPING UNI 2013 CURRENT MEDICATIONS: Current Outpatient Medications Medication Sig Dispense Refill albuterol (VENTOLIN HFA) [...] Take 40 mg by mouth every morning. gabapentin (NEURONTIN) 300 mg capsule 1 tab PO nightly x 5 days, then increase to 1 tab PO BID x 5 days. If continue to tolerate well, increase to 1 tab PO TID. 120 capsule 2 HYDROcodone-acetaminophen (NORCO) 10-325 mg per tablet 1 [...] for this visit. ALLERGIES: Allergies Allergen Reactions Bees [Bee Venom] Lactose Hives Penicillins Hives Uncoded Nonscreenable Allergen Other (See Comments) Blood transfusions-Reaction not specified in outside medical records SOCIAL HISTORY: The patient reports that she has been smoking cigarettes. She started smoking about 91 ye ars ago. She has a 30.00 pack-year smoking history. She has never used smokeless tobacco. Reba dowling reports that she drinks alcohol. She reports that she does not use drugs. FAMILY HISTORY: Family History Problem Relation Age of Onset Lung cancer Father Pacemaker Mother Cardiac problems Arthritis Mother Stroke Mother No known problems Son No known problems Daughter No known problems Sister PTSD Brother Other (see comment) Brother GSW from [place] No known problems Brother Schizophrenia Brother No known problems Brother No known problems Daughter Brain cancer Maternal Grandmother Breast cancer [...] pain/arthritis, no Rheumatoid Arthritis PHYSICAL EXAMINATION: Vitals: 01/01/19 1535 BP: 144/81 Pulse: 71 PainSc: 9 PainLoc: Leg Body mass index is 24.56 kg/m. 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 She has appropriate fund of knowledge [...] loading was positive. Strength test ing showed 4/5 strength throughout the lower extremities. The patient was able to heel and toe walk without difficulty. There was no redness, effusion, warmth or joint line tendernes s in the knees or ankles. RADIOGRAPHIC REVIEW: The patient's imaging was reviewed in detail with the patient today during the visit. Lumb ar MRI from 2019 shows moderate to severe central canal stenosis at L4-5. There is facet hy pertrophy with effusions worse at L4-5 and L5-S1. ASSESSMENT: 1. Lumbar radiculopathy PLAN: 1) Today we discussed the patient's differential diagnosis with the likely primary issue be ing LUMBAR RADICULOPATHY and lumbar spondylosis. Patient's description of symptoms, physical exam, and imaging suggest this diagnosis at this time. 2) I counseled patient on treatment options which included conservative self management usi ng OTC NSAIDs/Ice and heat packs, physical therapy, prescription medications, epidural stero id injection, neuromodulation devices, as well as possible surgical intervention. 3) Imaging: As descibed above in radiology review. 4) The patient has had significant conservative care including medications (NSAIDS and narc otics), PT (multiple sessions over the years) and critical care physician assistant. Unfortunately Martha Toth continues to have significant discomfort. It appears to me that the pain is tito roshan coming from L4/5 central canal stenosis. I did feel that aMrtha Toth would be a good candidate for interventional proced ures and I offered a L5/S1 TFESI to be done. Patient was instructed to call us after 2 wee ks if no improvement following injection. At that time I'll order bilateral L4-5 and L5-S1 facet steroid injections. I did feel that Martha Toth would be a good candidate for medication: none adde d. 5) Patient will follow up with me 3 weeks post injection/as needed to discuss any imaging a nd/or progress with today's treatment plan. 6) If current treatment plan is insufficient for symptom relief we could try lumbar facet i njections as noted above as the next therapy option. I spent 30 minutes in visit with Martha Toth today with the majority of time spent counselling the patient on her diagnosis, options for her care, and coordinating her care. documented in this encounter Plan of Treatment + +---------+--------+ + + | Name | Type | Priori | Associated Diagnoses | Order Schedule | | | | ty | | | + +---------+--------+ + + | FL ESPERANZA Lumbar | Imaging | Routin | Lumbar | Expected: | | Transforaminal | | e | radiculopathy | 01/01/2019, Expires: | | | | | | 01/02/2020 | + +---------+--------+ + + documented as of this encounter Visit Diagnoses + + | Diagnosis | + + | Lumbar radiculopathy - Primary Thoracic or lumbosacral neuritis or radiculitis, | | unspecified | + + | Lumbar spondylosis Lumbosacral spondylosis without myelopathy | + + documented in this encounter
--- OUTSIDE RECORDS SUMMARY | ~2020-02-24 | XMS | Encounter Summary ---
Demographics + + + | Address | [address] [place] [address] Ln | | | [place] [address] | + + + | Home Phone [...] | | | | | [place] [address] | | + + + + + Care Team Providers + +------+ + | Care Front Worker Name | Role | Phone | [...] | | 2005 | | Medicine at [facility] | [address] | | | | | [place] [address] [facility] | [place], [place] | | | | | [address] | [address] | | | | | Mailcode: MINDY Albarran | [phone] | | | | | [address] | | | | | | [place], [place] | | | | | | [address] | | | | | | [phone] | | | +--------+--------+ + + + [...]
--- OUTSIDE RECORDS SUMMARY | ~2020-02-24 | XMS | Encounter Summary ---
Demographics + + + | Address | [address] [place] [address] Ln | | | [place] [address] | + + + | Home Phone | | + + + | Preferred Language | Unknown | + + + | Marital Status | | + + + | Scientology Affiliation | LINDSAY | + + + [...] | | | | | [place] [address] | | + + + + + Care Team Providers + +------+ + | Care Drone Pilot Name | Role | Phone | + +------+ + | Eladio Lynch MD | PCP | | + +------+ + Encounter Details +--------+ + + + + | Date | Type | Department | Care Team | Description | +--------+ + + + + | 10/13/ | Office | [facility] | Note, [...] as of this encounter Progress Notes Interface, Clinical Rehab Specialist In - 06/06/2006 3:09 AM PSTCLINIC DATE: 10/13/2000 [facility] SUBJECTIVE: Ms. Toth is a 59-year-old female with a history of nbl-irflqbq-mbckjgruz diabetes mellitus who is here for general followup. Today, she has continued her smoking cessation since September 07, 2000. She has a new diabetes sugar monitoring kit which she is very happy with. Her last hemoglobin A1c August 08, 2000, was 7.7 and CBG this morning was 143. Her last ophthalmologic visit was on November 22, 1999, with no findings. Historically, she does have some lower extremity neuropathy that may also be secondary to her history of back pain with 2 surgeries. PAST MEDICAL HISTORY: Also, notable for reactive airway disease and seasonal allergic rhinitis. REVIEW OF SYSTEMS: Review of systems reveals no new symptoms. OBJECTIVE: GENERAL: She is in no apparent distress. She is alert and oriented x 4. VITAL SIGNS: Stable. LUNGS: Mild expiratory wheezes. HEENT: Notable for mild conjunctival swelling. Nares are mildly edematous with serous discharge. ASSESSMENT 1. Ori-guwdnuw-qgtvzyzew diabetes mellitus. Congratulated her for smoking cessation. Continue our current management with medication and provide her with a prescription for test strips for her fast take test machine. Currently is on glipizide 10 mg 2 p.o. b.i.d. 2. Seasonal allergic rhinitis. Claritin 10 mg 1 p.o. q.d. 3. Medications written. 4. Reactive airway disease. We talked about the increase in need for her inhalers following smoking cessation, reassured her that it is the real remedy due to her smoking cessation that would miquel between 3 and 6 months out, she will notice. We will see her back in 1 month for chronic pain secondary to back. PLAN: I refilled her prescribed medications. She currently is not using Soma and was using Vicodin 1 p.o. t.i.d. #90. We will have her followup in 1 month. Eladio Lynch M.D. [facility] / [id number] / [id number] / [id number] / [id number] Tdocumented in this encounter Plan of Treatment Not on filedocumented as of this encounter Visit Diagnoses Not on filedocumented in this encounter"
--- OUTSIDE RECORDS SUMMARY | ~2020-02-24 | XMS | Encounter Summary ---
Demographics + + + | Address | [address] [place] [address] Ln | | | [place] [address] | + + + | Home Phone [...] | | | | | [place] [address] | | + + + + + Care Team Providers + +------+ + | Care Neurology Teacher Name | Role | Phone | + +------+ + | Eladio Lynch MD | PCP | | + +------+ + Encounter Details +--------+ + + + + | Date | Type | Department | Care Team | Description | +--------+ + + + + | 12/20/ | Document-Sc | UNKNOWN DEPARTMENT | Unknown . | | | 2013 | anned | [address] | | | | | | [address] | | | | | | [place] | | | | | | [address] | | | +--------+ + + + [...]
--- OUTSIDE RECORDS SUMMARY | ~2020-02-24 | XMS | Encounter Summary ---
Demographics + + + | Address | [address] [place] [address] Ln | | | [place] [address] | + + + | Home Phone [...] | | | | | [place] [address] | | + + + + + Care Team Providers + +------+ + | Care Banner Painter Name | Role | Phone | + +------+ + PCP | Unavailable | + +------+ + Encounter Details +--------+ + + + + | Date | Type | Department | Care Team | Description | +--------+ + + + + | 06/24/ | Results | [facility] | Eladio Lynch, | | | 2000 | Only | Medicine at [facility] | [address] | | | | | [place] [address] | [place], [place] | | | | | [address] | [address] | | | | | Mailcode: MINDY Albarran | [phone] | | | | | [address] | | | | | | [place], [place] | | | | | | [address] | | | | | | [phone] | | | +--------+ + + + [...] | | + +---------+ + + | [facility] DEPARTMENT OF | | | | [...] endplate | | | | | | [id number] at T12 | | | | | [...] + + | Performing | Address | City/State/[facility] | Phone Number | | Organization | | | | + +---------+ + + | [facility] DEPARTMENT OF | | | | | RADIOLOGY | | | | + +---------+ + + documented in this encounter Visit Diagnoses Not on filedocumented in this encounter"
--- OUTSIDE RECORDS SUMMARY | ~2020-02-24 | XMS | Encounter Summary ---
Demographics + + + | Address | [address] [place] [address] Ln | | | [place] [address] | + + + | Home Phone | | + + + | Preferred Language | Unknown | + + + | Marital Status | | + + + | Hoahaoism Affiliation | LINDSAY | + + + [...] | | | | | [place] [address] | | + + + + + Care Team Providers + +------+ + | Care Marine Architect Name | Role | Phone | + +------+ + PCP | Unavailable | + +------+ + Encounter Details +--------+ + + + + | Date | Type | Department | Care Team | Description | +--------+ + + + + | 11/19/ | Results | [facility] | Eladio Lynch, | | | 2001 | Only | Medicine at [facility] | [address] | | | | | [place] | [place], [place] | | | | | [address] | [address] | | | | | Mailcode: MINDY Albarran | [phone] | | | | | [address] | | | | | | [place], [place] | | | | | | [address] | | | | | | [phone] | | | +--------+ + + + [...] + | HEMOGLOBIN A1C, | Routin | 01/22/2002 | | Results for this | | BLOOD | e | 10:11 AM | | procedure are in the | | | | PDT | | results section. | + +--------+ + + + | CT CHEST W CONTRAST | Urgent | 12/05/2001 | | Results for this | | | | 9:40 AM | | procedure are in the | | | | PDT | | results section. | + +--------+ + + + | X-RAY CHEST 2 VIEW | Routin | 11/19/2001 | | Results for this | | | e | 1:52 PM | | procedure are in the | | | | PDT | | results section. | + +--------+ + + + documented in this encounter Results HEMOGLOBIN A1C (01/22/2002 10:11 AM PDT) + +---------+ + + + | Component | Value | Ref Range | Performed | Pathologist | | | | | At | Signature | + +---------+ + + + | HEMOGLOBIN | 8.8 (H) | <7.1 % | | | [...] + + + | [facility] | [address] | [place] [address] | | | LABORATORY | | | | + + + + + CT CHEST W CONTRAST (12/05/2001 9:40 AM PDT) + + + + + + | Component | Value | Ref Range | Performed | Pathologist | | | | | At | Signature | + + + + + + | CT CHEST W | Radiologist 1: FAITH, | | | | | CONTRAST | ANALISA Canela-Radiologist 2: | | | | | | ANALISA CUEVAS V.CT | | | | | | CHEST: 12/05/2001 | | | | | | Dictated: 12/05/2001 | | | | | | COMPARISON: Comparison | | | | | | is made to chest CT | | | | | | from 05/28/1999. | | | | | | CLINICAL HISTORY: This | | | | | | is a patient with a | | | | | | previous right | | | | | | middlepartial right | | | | | | lower lobectomy now with | | | | | | a persistent right | | | | | | lower lobeatelectasis. | | | | | | TECHNIQUE: After the | | | | | | uneventful | | | | | | administration of | | | | | | Omnipaque-300 (143cc) | | | | | | contiguous axial 5 mm | | | | | | images were obtained | | | | | | from the apices | | | | | | throughthe adrenal | | | | | | glands. These were | | | | | | reviewed in lung, soft | | | | | | tissue, andbone windows. | | | | | | FINDINGS: The | | | | | | post-obstructive | | | | | | atelectasis of the right | | | | | | lower lobewas not | | | | | | present on the previous | | | | | | examination. There are | | | | | | no airbronchograms. | | | | | | There is no | | | | | | consolidation, focal | | | | | | mass, or effusion.There | | | | | | is no mediastinal or | | | | | | hilar adenopathy. The | | | | | | heart, aorta, andgreat | | | | | | vessels have a normal | | | | | | appearance. There is | | | | | | no pericardialeffusion. | | | | | | The liver has a diffuse | | | | | | fatty infiltration | | | | | | without masses in | | | | | | thevisualized portions. | | | | | | The adrenal glands, | | | | | | spleen, kidneys, | | | | | | pancreas,are normal. | | | | | | There is no pericaval | | | | | | or paraaortic | | | | | | adenopathy. There are no | | | | | | lytic or blastic | | | | | | lesions in the bones of | | | | | | the thorax. IMPRESSION: | | | | | | 1. Right lower lobe | | | | | | atelectasis with lack of | | | | | | air | | | | | | bronchogramsindicates a | | | | | | post-obstructive | | | | | | process. Whether there | | | | | | are no massesidentified | | | | | | and this could be | | | | | | secondary to | | | | | | broncho-malacia from | | | | | | theprevious surgery. 2. | | | | | | Diffuse fatty | | | | | | infiltration of the | | | | | | liver. 3. No evidence | | | | | | of distance metaphysis. | | | | | | END OF IMPRESSION: | | | | + + + + + + + + | Specimen | + + | | + + + +---------+ + + | Performing | Address | City/State/Zipcode | Phone Number | | Organization | | | | + +---------+ + + | [facility] DEPARTMENT OF | | | | | RADIOLOGY | | | | + +---------+ + + CHEST 2 VIEW (11/19/2001 1:52 PM PDT) + + + + + + | Component | Value | Ref Range | Performed | Pathologist | | | | | At | Signature | + + + + + + | CHEST, 2 | Radiologist 1: FERNY, | | | | | ANURADHA [place] | Le CAMARILLO-Radiologist | | | | | STEREO | 2: TYRA OLMSTEAD, | | | | | | LePORTABLE AP VIEW OF | | | | | | THE CHEST: 11/19/2001 | | | | | | DICTATED: 11/22/2001 | | | | | | COMPARISON: | | | | | | 05/10/1999. FINDINGS: | | | | | | There is a well | | | | | | delinated opacity in the | | | | | | right lung basealongthe | | | | | | right heart border, and | | | | | | volume loss in the | | | | | | right hemithorax.The | | | | | | left lung is clear. | | | | | | There are surgical clips | | | | | | projecting over | | | | | | theright sheri. No | | | | | | pneumothorax is seen. | | | | | | There is a small right | | | | | | pleuraleffusion. The | | | | | | cardiomediastinal | | | | | | silhouette, sheri, and | | | | | | pulmonaryvasculature is | | | | | | unremarkable. | | | | | | IMPRESSION: Right lower | | | | | | lobe collapse, and small | | | | | | right pleural effusion. | | | | | | Giventhe patient's | | | | | | history of primary lung | | | | | | malignancy, this is | | | | | | worrisomefor an | | | | | | obstructing neoplasm vs. | | | | | | a mucous plugging. | | | | | | END OF IMPRESSION: | | | | + + + + + + + + | Specimen | + + | | + + + +---------+ + + | Performing | Address | City/State/[facility] | Phone Number | | Organization | | | | + +---------+ + + | [facility] DEPARTMENT | | | | | RADIOLOGY | | | | + +---------+ + + documented in this encounter Visit Diagnoses Not on filedocumented in this encounter"
--- OUTSIDE RECORDS SUMMARY | ~2020-02-24 | XMS | Encounter Summary ---
Demographics + + + | Address | [address] [place] [address] Ln | | | [place] [address] | + + + | Home Phone [...] | | | | | [place] [address] | | + + + + + Care Team Providers + +------+ + | Care Construction Materials Tester Name | Role | Phone | [...] as of this encounter Progress Notes Interface, Project Intern In - 03/01/2006 1:02 AM PDTCLINIC DATE: 01/20/2003 [facility] SUBJECTIVE: Ms. Toth is here for [...] mottling with a good capillary refill. ASSESSMENT: Msh-gujiqwa-czbnnwhun diabetes mellitus. PLAN 1. Ophthalmology visit. Refill her controlled substances on a monthly or bimonthly basis and see her back as needed. 2. Tobacco cessation greater than 2-1/2 years now. She was congratulated on that. 3. Allergies seem to be remaining in check. We will continue to see her bimonthly to talk about issues. Eladio Lynch M.D. [facility] / [id number] / [id number] / [id number] / [id number] Tdocumented in this encounter Plan of Treatment Not on filedocumented as of this encounter Visit Diagnoses Not on filedocumented in this encounter"
--- OUTSIDE RECORDS SUMMARY | ~2020-02-24 | XMS | Encounter Summary ---
Demographics + + + | Address | [address] [place] [address] Ln | | | [place] [address] | + + + | Home Phone [...] | | | | | [place] [address] | | + + + + + Care Team Providers + +------+ + | Care Epic Stork Specialists Name | Role | Phone | + +------+ + | Eladio Lynch MD | PCP | | + +------+ + Encounter Details +--------+ + + + + | Date | Type | Department | Care Team | Description | +--------+ + + + + | 10/07/ | Office | [facility] | Note, [...] as of this encounter Progress Notes Interface, Architectural Job Captain In - 07/02/2006 3:12 AM PSTCLINIC DATE: 10/08/1999 [facility] SUBJECTIVE: Ms. Toth is here for followup of her right elbow diagnosed previously with epicondylitis lateralis with a significant history of psu-vfaioea-vtnewqywu diabetes mellitus. She is right-hand dominant. This has become dysfunctional to her. A forearm tennis elbow band was working fairly well until she developed an allergy to it. She has tried putting clothing under that which has not been as effective. She is interested in an injection. When I asked her, the sugars have been between 100 and 130 in general, and she has been compliant with her medications. With her consent and the understanding that this may be complicated by her diabetes, that there is a risk of infection and failure to work, and hyperglycemia secondary to the steroids, although locally injected, she agreed to this. OBJECTIVE: GENERAL: She is no apparent distress. She is alert and oriented x 4. VITAL SIGNS: Stable and afebrile. An injection using a 25-gauge 1-inch needle of 10 mg triamcinolone and 3 cc of 0.5% Marcaine was injected superficially to the lateral epicondyle tendon sheet in the distribution of her specific point tenderness. She was encouraged to ice this several times per day and to follow up in 1 month. If this therapy fails to provide any relief, it may be necessary for an orthopedic referral or a long-arm cast for 4 to 6 weeks for a true rest. Eladio Lynch M.D. [facility] / [id number] / [id number] / [id number] / [id number] Tdocumented in this encounter Plan of Treatment Not on filedocumented as of this encounter Visit Diagnoses Not on filedocumented in this encounter"
--- OUTSIDE RECORDS SUMMARY | ~2020-02-24 | XMS | Encounter Summary ---
Demographics + + + | Address | [address] [place] [address] Ln | | | [place] [address] | + + + | Home Phone | | + + + | Preferred Language | Unknown | + + + | Marital Status | | + + + | Methodist Affiliation | LINDSAY | + + + [...] | | | | | [place] [address] | | + + + + + Care Team Providers + +------+ + | Care Certified Legal Investigator Name | Role | Phone | + [...] | Outreach | at [facility] | MD [address] | | | | | [address] | [place], [place] | | | | | [facility] | [address] | | | | | and [place], | [phone] | | | | | [facility] | | | | | | Floor [place], [place] | | | | | | [address] | | | | | | [phone] | | | +--------+ + + + [...]
--- OUTSIDE RECORDS SUMMARY | ~2020-02-24 | XMS | Encounter Summary ---
Demographics + + + | Address | [address] [place] [address] Ln | | | [place] [address] | + + + | Home Phone [...] | | | | | [place] [address] | | + + + + + Care Team Providers + +------+ + | Care Dirt Bike Racer Name | Role | Phone | + [...] as of this encounter Progress Notes Interface, Broker Assistant In - 08/13/2006 5:12 AM PSTCLINIC DATE: 06/12/1998 [facility]: HISTORY OF PRESENT ILLNESS: Ms. Toth returns to clinic for follow-up and evaluation of her CT scan for staging of non-small cell lung cancer. Ms. Toth had a CT scan of the chest and upper abdomen at [facility], which reveals a T1, N0, M0 lesion. This is different from her outside CT scan from [place], [place], which revealed bulky mediastinal adenopathy. This [...] as ordered. We will follow-up with Ms. Toth after resection should that be deemed feasible or before that to discuss therapy if Dr. Griffith has any issues that need to be resolved prior to surgery. This was a twenty-five minute visit, more than 50% of which consisted of counseling. Xuan Taylor M.D. Tool Design Draftsperson, Medicine HR/sct; ; Electronically signed by Interface, Broker Assistant In at 02/2007 5:12 AM PSTdocumented in this encounter Plan of Treatment Not on filedocumented as of this encounter Visit Diagnoses Not on filedocumented in this encounter"
--- OUTSIDE RECORDS SUMMARY | ~2020-02-24 | XMS | Encounter Summary ---
Demographics + + + | Address | [address] [place] [address] Ln | | | [place] [address] | + + + | Home Phone [...] | | | | | [place] [address] | | + + + + + Care Team Providers + +------+ + | Care Aircraft Cabin Cleaner Name | Role | Phone | + [...] Description | +--------+--------+ + + + | 11/08/ | Refill | [facility] | Lynch, Eladio, | Refill Request | | 2006 | | at [facility] | MD [address] | | | | | [address] | [facility] [place] | | | | | [facility] | [address] | | | | | and Healing, | [phone] | | | | | Building | | | | | | Floor [facility] [place] | | | | | | [address] | | | | | | [phone] | | | +--------+--------+ + + + [...]
--- OUTSIDE RECORDS SUMMARY | ~2020-02-24 | XMS | Encounter Summary ---
Demographics + + + | Address | [address] [place] [address] Ln | | | [place] [address] | + + + | Home Phone [...] | | | | | [place] [address] | | + + + + + Care Team Providers + +------+ + | Care Budget Accountant Name | Role | Phone | + [...] Clinic | | | | | | [facility], [address] | | | | | | [place], [place] | | | | | | [address] | | | | | | [phone] | | | +--------+ + + + [...] as of this encounter Progress Notes Interface, Puzzle Assembler In - 09/02/2006 5:06 AM PST CLINIC DATE: 11/04/97 [facility] DATE OF : 44. SUBJECTIVE: Ms. [...] Resident, Obstetrics and Gynecology Eladio Lynch M.D. Stock Checkerer, Family Medicine EM/andrew documented in this encounter Plan of Treatment Not on filedocumented as of this encounter Visit Diagnoses Not on filedocumented in this encounter"
--- OUTSIDE RECORDS SUMMARY | ~2020-02-24 | XMS | Encounter Summary ---
Demographics + + + | Address | [address] [place] [address] Ln | | | [place] [address] | + + + | Home Phone [...] | | | | | [place] [address] | | + + + + + Care Team Providers + +------+ + | Care Linux Kernel Engineer Name | Role | Phone | [...] Description | +--------+--------+ + + + | 09/19/ | Refill | [facility] | Lynch, Eladio, | Refill Request | | 2013 | | at [facility] | MD [address] | | | | | [address] | [place], [place] | | | | | [facility] | [address] | | | | | and Healing, | [phone] | | | | | Building | | | | | | Floor [facility] [place] | | | | | | [address] | | | | | | [phone] | | | +--------+--------+ + + + [...]
--- OUTSIDE RECORDS SUMMARY | ~2020-02-24 | XMS | Encounter Summary ---
Demographics + + + | Address | [address] [place] [address] Ln | | | [place] [address] | + + + | Home Phone [...] Author | [facility] | + + + | Organization | [facility] | + + + | Address | Unknown | + + + | Phone | Unavailable | + + + Support + + + + + | Name | Relationship | Address | Phone | + + + + + | Jeni Shirley | ECON | [facility] | | | | | [place] [address] | | + + + + + Care Team Providers + +------+ + | Care Immigration Investigator Name | Role | Phone | + +------+ + | Eladio Lynch MD | PCP | | + +------+ + Encounter Details +--------+ + + + + | Date | Type | Department | Care Team | Description | +--------+ + + + + | 11/04/ | Office | [facility] | Note, [...] as of this encounter Progress Notes Interface, Raise Driller In - 06/29/2006 5:02 AM PSTCLINIC DATE: 11/05/1999 [facility] SUBJECTIVE: Martha is a 59-year-old female who presents with a three-month history of right epicondylitis lateralis. She has been using anti-inflammatories as well as rest, has received a counter fulcrum brace and also undergone one injection with steroids, all of which have failed to help with her problem. She believes she is resting as much as she can but she cannot avoid consulting solution director. She is interested in the possibility of casting this to guarantee its rest. She also has a contract for pain medications for her back. She generally uses four Vicodin and four Soma per day and receives these on a monthly basis. She understands that her daughter has a specific interest in her discontinuing these medications and believes that she is addicted to them. I shared parts of my conservation with her daughter over the phone concerning this issue and shared my interest in revisiting the contract specifically to make clear to the patient that it was expected that she not use an excessive amount of these medications followed by a deficient amount of these medications, but they are intended to be used on their scheduled basis. She seemed aware and receptive to our counseling conversation. OBJECTIVE: GENERAL: She is in no apparent distress. She is alert and oriented x 4. VITAL SIGNS: Stable. EXTREMITIES: Right lateral epicondyle is point tender executively to palpation. She continues to have break-away pain with extensor resistance. There continues to be one small subtle area of ecchymosis and complete range of motion otherwise. Neurovascularly intact upper extremity. ASSESSMENT 1. Epicondylitis lateralis. We discussed several options and decided to send Ms. Toth to Dr. Butterfield in Sports Medicine for any advice he might have concerning this frustrating dilemma. 2. Chronic pain. We will refill her medications today. She will use these as scheduled and followup in one month. Eladio Lynch M.D. [facility] / [id number] / [id number] / [id number] / [id number] signed by Interface, Raise Driller In at 06/29/2006 5:02 AM PSTdocume nted in this encounter Plan of Treatment Not on filedocumented as of this encounter Visit Diagnoses Not on filedocumented in this encounter"
--- OUTSIDE RECORDS SUMMARY | ~2020-02-24 | XMS | Encounter Summary ---
Demographics + + + | Address | [address] [place] [address] Ln | | | [place] [address] | + + + | Home Phone | | + + + | Preferred Language | Unknown | + + + | Marital Status | | + + + | Temple Affiliation | LINDSAY | + + + [...] | | | | | [place] [address] | | + + + + + Care Team Providers + +------+ + | Care Towel Sorter Name | Role | Phone | + +------+ + | Eladio Lynch MD | PCP | | + +------+ + Encounter Details +--------+ + + + + | Date | Type | Department | Care Team | Description | +--------+ + + + + | 05/28/ | Office | [facility] | Note, [...] as of this encounter Progress Notes Interface, Adult School Teacher In - 07/15/2006 5:04 AM PSTCLINIC DATE: 05/28/1999 [facility] SUBJECTIVE: Ms. Toth is a 58-year-old woman who underwent resection of a non-small cell lung cancer about a year ago at [facility]. 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 In the intervals at her last visit with me, she has had a great deal of personal stress and has resumed smoking. She is currently smoking five to six cigarettes a day. A month or so ago, she was found to have low oxygen saturations, and was given home O2 at two to three liters p.r.n. to keep saturations greater than 92. She has been carefully counseled to avoid smoking in the presence of oxygen, and she states that she only smokes outside. Her pulse oximetry today is 97% on room air suggesting some improvements. She continues to have some wheezing and asthma for which she is taking inhalers, but she sometimes forgets one or two doses. She states that she is able to climb stairs and is climbing stairs three or four times a day, but only about four stairs at a time and then stopping to rest. This has been hard on her back, as well as she has a history of multiple back surgeries and is continuing to have some back pain. Of note, her bone scan had been negative prior to surgery. She continues to have some cough with a small amount of clear phlegm. No hemoptysis, no fevers, chills, or sweats. No constitutional symptoms and no weight loss. PAST MEDICAL HISTORY: Unchanged. There are no new medications. REVIEW OF SYSTEMS: Negative except for as described above. PHYSICAL EXAMINATION: GENERAL: She is a well-developed white female in no acute distress. VITAL SIGNS: Weight 162 pounds, blood pressure 120/68, pulse initially 120 falling to 90 at the time of my exam, temperature is 36, and room air oxygen saturation 97% by pulse oximetry. HEENT: Unremarkable. There is no palpable lymphadenopathy in the cervical, supraclavicular, or axillary regions. The carotids are 2+ and symmetric. There is no thyromegaly. LUNGS: Diffuse inspiratory and expiratory wheezing bilaterally. The right thoracotomy scar is well healed and nontender. CARDIAC: Regular without new murmurs, rubs, or gallops. ABDOMEN: Obese and nontender with no organomegaly with normal bowel sounds and no appreciable mass. EXTREMITIES: No cyanosis or edema. NEUROLOGICAL: Nonfocal. LABORATORY DATA: A chest x-ray performed a few weeks ago showed no evidence of disease. Laboratories from the May 10, 1999, showed a normal CBC with the exception of a very mild anemia with a hematocrit of 36.3. Her BUN and creatinine were 8 and 0.6. The remainder of the chemistries were normal. A CT scan of the chest through the liver is scheduled for later this morning and will be reviewed when available. IMPRESSION AND PLAN: Non-small lung cancer stage IA. The patient has good chance of usp survival with a recurrence rate of about 30% over the next five years. She has been strongly encouraged to discontinue smoking and has been referred both to our Stop Smoking Program ,as well as to [employer] Program. She states that she will taking Wellbutrin sometime in the near future prescribed by one of her other physicians. If her scan shows no evidence of recurrence, I would like to see her every three or four months with a chest x-ray, laboratories, and a physical exam. The highest risk of recurrence is in the first two years and substantially reduces after five years, although, if she continues to smoke, she remains at high risk for second primaries and this risk will continue for at least two decades after cessation of smoking. Xuan Taylor M.D. / [id number] / [id number] / [id number] / cc: Teresa Kelly [facility]. doileana oleary in this encounter Plan of Treatment Not on filedocumented as of this encounter Visit Diagnoses Not on filedocumented in this encounter"
--- OUTSIDE RECORDS SUMMARY | ~2020-02-24 | XMS | Encounter Summary ---
Demographics + + + | Address | [address] [place] [address] Ln | | | [place] [address] | + + + | Home Phone [...] | | | | | [place] [address] | | + + + + + Care Team Providers + +------+ + | Care Radio Officer Name | Role | Phone | [...] [id number] | | | | | | [place], [place] | | | | | | [address] | | | | | | [phone] | | | +--------+ + + + [...]
--- OUTSIDE RECORDS SUMMARY | ~2020-02-24 | XMS | Encounter Summary ---
Demographics + + + | Address | [address] [place] [address] Ln | | | [place] [address] | + + + | Home Phone [...] | | | | | [place] [address] | | + + + + + Care Team Providers + +------+ + | Care Trailer Sections Assembler Name | Role | Phone | + +------+ + | Ealdio Lynch MD | PCP | | + +------+ + Encounter Details +--------+ + + + + | Date | Type | Department | Care Team | Description | +--------+ + + + + | 09/13/ | Office | [facility] | Note, [...] as of this encounter Progress Notes Interface, Sign Designer In - 04/18/2006 1:05 AM PDTCLINIC DATE: 09/13/2001 [facility] SUBJECTIVE: Ms. Toth is a 61-year-old female who is here for followup after a stress echocardiogram which was normal with the exception of some difficulty watching inferior wall motion with no history specifically of myocardial infarction, but risk factors include NIDDM, history of tobacco use (discontinued in July 2001), a normal lipid panel, and a family history of heart disease. She does have issues with substernal chest pain that may be reflux or anxiety form in nature. An EKG done today shows normal sinus rhythm with nonspecific ST-T wave changes, nothing clearly demonstrating ischemia or infarct. No arrhythmia. PHYSICAL EXAMINATION: VITAL SIGNS: Blood pressure 132/80, pulse 88, and respirations 20. NECK: No carotid bruits. CARDIAC: Regular rate and rhythm without murmurs, gallops, or rubs. LUNGS: Clear to auscultation. EXTREMITIES: Without clubbing, cyanosis, or edema. ASSESSMENT 1. Chest pain with a normal stress echocardiogram. 2. Risk factors. PLAN: At this point, is to use aspirin daily, continue with her routine medications, make concerted effort at better control of her diabetes with a last hemoglobin A1c of 11. We will see her back in 1 month. Eladio Lynch M.D. ROSIE / KIMBERLEY [id number] / [id number] / [id number] / Tdocumented in this encounter Plan of Treatment Not on filedocumented as of this encounter Visit Diagnoses Not on filedocumented in this encounter"
--- OUTSIDE RECORDS SUMMARY | ~2020-02-24 | XMS | Encounter Summary ---
Demographics + + + | Address | [address] [place] [address] Ln | | | [place] [address] | + + + | Home Phone [...] | | | | | [place] [address] | | + + + + + Care Team Providers + +------+ + | Care Factory Hand Name | Role | Phone | [...] | +--------+ + + + + | 10/17/ | Telephone | [facility] | Eladio Lynch, | Refill Request | | 2013 | | at [facility] | MD [address] | | | | | [address] | [place], [place] | | | | | [facility] | [address] | | | | | and Healing, | [phone] | | | | | [facility] | | | | | | Floor [facility] [place] | | | | | | [address] | | | | | | [phone] | | | +--------+ + + + [...] Primary Anxiety state, unspecified | + + documented in this encounter"
--- OUTSIDE RECORDS SUMMARY | ~2020-02-24 | XMS | Encounter Summary ---
Demographics + + + | Address | [address] [place] [address] Ln | | | [place] [address] | + + + | Home Phone [...] | | | | | [place] [address] | | + + + + + Care Team Providers + +------+ + | Care Drywall Application Supervisor Name | Role | Phone | [...] as of this encounter Progress Notes Interface, Media Strategist In - 07/05/2006 1:01 AM PSTCLINIC DATE: 09/13/1999 [facility] SUBJECTIVE: Ms. Toth continues to do well with respect to her diabetes. Her fasting sugar this morning was 109. Her weight is stable at 150 pounds. She does acknowledge not adhering strictly to her diabetic diet. A wound on her left distal leg is well-healed without areas of erythema or fluctuance. She has no interdigital or additional foot pathology. She does have some left dorsal foot numbness which may be due to the wound in part and also complicated by her diabetes. Additionally, she has some left elbow pain in the muscles over the extensor origins of her forearm. She does not recognize any overuse injury in particular that may have caused this. There is no distal numbness. She does remark that the pain radiates to her shoulder occasionally. It is more of an ache when that occurs. OBJECTIVE: She is in no apparent distress. VITAL SIGNS: Her vital signs are stable. MUSCULOSKELETAL: She has tenderness over the lateral epicondyle; particularly with extension at the wrist. There are no foreign bodies, bony fragments, or step-offs present. She is neurovascularly intact in her extremities. There is no ulnar distribution of dysesthesias or numbness. ASSESSMENT AND PLAN 1. Epicondylitis lateralis. PLAN: Conservative therapy. A tennis elbow band was written for. She is to ice it. She is intolerant to NSAIDs. Consideration of steroid injections was discussed and deferred. 2. Diabetes. PLAN: Continue current management. 3. Chronic pain. PLAN: Will continue her current pain medications x 1 month and see her then. Eladio Lynch M.D. Syed / [id number] / [id number] / [id number] / Tdocumented in this encounter Plan of Treatment Not on filedocumented as of this encounter Visit Diagnoses Not on filedocumented in this encounter"
--- OUTSIDE RECORDS SUMMARY | ~2020-02-24 | XMS | Encounter Summary ---
Demographics + + + | Address | [address] [place] [address] Ln | | | [place] [address] | + + + | Home Phone [...] | | | | | [place] [address] | | + + + + + Care Team Providers + +------+ + | Care Head Of Product Name | Role | Phone | + +------+ + PCP | Unavailable | + +------+ + Encounter Details +--------+ + + + + | Date | Type | Department | Care Team | Description | +--------+ + + + + | 04/01/ | Results | [facility] | Eladio Lynch, | | | 2003 | Only | Medicine at [facility] | [address] | | | | | [place] [address] | [place], [place] | | | | | [address] | [address] | | | | | Mailcode: MINDY Albarran | [phone] | | | | | [address] | | | | | | [place], [place] | | | | | | [address] | | | | | | [phone] | | | +--------+ + + + [...] | + +--------+ + + + | MA MAMMOGRAPHY | Routin | 04/01/2004 | | Results for this | | SCREEN BILAT | e | 7:58 AM | | procedure are in the | | | | PDT | | results section. | + +--------+ + + + documented in this encounter Results AR MAMMOGRAPHY SCREEN BILAT (04/01/2004 7:58 AM PDT) + + + + + + | Component | Value | Ref Range | Performed | Pathologist | | | | | At | Signature | + + + + + + | MA | Radiologist 1: PIPE, | | | | | MAMMOGRAPHY | LANDY Browne M.D.Comparison | | | | | SCREEN | is made to films from | | | | | BILAT | 14-Dec-1998. There is no | | | | | | significantinterval | | | | | | change. Bilateral Breast | | | | | | Findings:The breasts | | | | | | are almost entirely fat. | | | | | | No significant | | | | | | masses,calcifications or | | | | | | other abnormalities are | | | | | | seen. IMPRESSION: | | | | | | BILATERAL BREASTS - | | | | | | Category 1Negative, no | | | | | | evidence of malignancy. | | | | | | Normal interval | | | | | | follow-up isrecommended | | | | | | in 12 months. OVERALL | | | | | | ASSESSMENT - NEGATIVEEND | | | | | | OF IMPRESSION | | | | + + + [...]
--- OUTSIDE RECORDS SUMMARY | ~2020-02-24 | XMS | Encounter Summary ---
Demographics + + + | Address | [address] [place] [address] Ln | | | [place] [address] | + + + | Home Phone [...] | | | | | [place] [address] | | + + + + + Care Team Providers + +------+ + | Care Clinician Oncology Name | Role | Phone | + [...] as of this encounter Progress Notes Interface, City Recorder In - 06/08/2006 5:08 AM PSTCLINIC DATE: 09/15/2000 [facility] SUBJECTIVE: Martha is here for followup [...] an old laceration rather than diabetes. ASSESSMENT: Yjg-hvumwka-phigyxrxu diabetes mellitus. PLAN: We will continue reassuring her of the benefits of the good control she is providing herself. See her back in 1 month. Eladio Lynch M.D. ROSIE / KIMBERLEY [id number] / [id number] / [id number] / [id number] signed by Interface, City Recorder In at 06/08/2006 5:08 AM PSTdocume nted in this encounter Plan of Treatment Not on filedocumented as of this encounter Visit Diagnoses Not on filedocumented in this encounter"
--- OUTSIDE RECORDS SUMMARY | ~2020-02-24 | XMS | Encounter Summary ---
Demographics + + + | Address | [address] [place] [address] Ln | | | [place] [address] | + + + | Home Phone [...] | | | | | [place] [address] | | + + + + + Care Team Providers + +------+ + | Care Rn Psych Name | Role | Phone | + +------+ + PCP | Unavailable | + +------+ + Encounter Details +--------+ + + + + | Date | Type | Department | Care Team | Description | +--------+ + + + + | 10/16/ | Results | [facility] | Eladio Lynch, | | | 2003 | Only | Medicine at [facility] | [address] | | | | | [place] [address] | [place], [place] | | | | | [address] | [address] | | | | | Mailcode: MINDY Albarran | [phone] | | | | | [address] | | | | | | [place], [place] | | | | | | [address] | | | | | | [phone] | | | +--------+ + + + [...] | uIU/ml | | | | | [facility] | | | | | | Laboratories. | | | | + + + + + + + + | Specimen | + + | | + + + + + + + | Performing | Address | City/State/Zipcode | Phone Number | | Organization | | | | + + + + + | [facility] | [address] | [place] [address] | | | LABORATORY | | | [...] by | | | | | | [facility] | | | | | | [facility]. | | | | + + + + + + + + | Specimen | + + | | + + + + + + + | Performing | Address | City/State/Zipcode | Phone Number | | Organization | | | | + + + + + | [facility] | [address] | [place] [address] | | | LABORATORY | | | [...] DEPARTMENT OF | [address] | [place] [address] | | | PATHOLOGY | [address] | | | + + + + + | [place] DEPARTMENT OF | [address] | [place] [address] | | | PATHOLOGY | [address] [...] + + + + + | [facility] | [facility] | [place] [address] | | | PATHOLOGY | [address] | | | + + + + + | [facility] | [address] [place] [address] | [place] [address] | | | PATHOLOGY | [address] [...] DEPARTMENT OF | [address] | [place], [place] [address] | | | PATHOLOGY | [address] | | | + + + + + | [facility] DEPARTMENT OF | [address] | [place] [address] | | | PATHOLOGY | [address] | | | + + + + + LIPID SET (10/17/2003 10:30 AM PST) + + + + + + | Component | Value | Ref Range | Performed | Pathologist | | | | | At | Signature | + + + + + + | CHOLESTEROL | 188Comment: | <200 mg/dL | [facility] | | | (LAB) | Cholesterol Reference [...] + + + + + | [facility] | [facility] [facility] | [place] [address] | | | PATHOLOGY | [address] | | | + + + + + | [facility] DEPARTMENT OF | [address] | [place] [address] | | | PATHOLOGY | [address] | | | + + + + + documented in this encounter Visit Diagnoses Not on filedocumented in this encounter"
--- OUTSIDE RECORDS SUMMARY | ~2020-02-24 | XMS | Encounter Summary ---
Demographics + + + | Address | [address] [place] [address] Ln | | | [place] [address] | + + + | Home Phone [...] | | | | | [place] [address] | | + + + + + Care Team Providers + +------+ + | Care Patching Machine Operator Name | Role | Phone | + +------+ + | No Pcp Per Patient | PCP | Unavailable | + +------+ + Reason for Visit + + + | Reason | Comments | + + + | Follow-up encounter | | + + + Encounter Details +--------+---------+ + + + | Date | Type | Department | Care Team | Description | +--------+---------+ + + + | 07/29/ | Office | [facility] | Eladio Lynch, | WIL W/O COMPLICATION | | 2012 | Visit | at [facility] | MD [address] | TYPE II (Primary | | | | [address] | [place], [place] | Dx); COPD (chronic | | | | [facility] | [address] | obstructive | | | | and Healing, | [phone] | pulmonary disease) | | | | | | ([facility]) | | | | Floor [place], [place] | | | | | | [address] | | | | | | [phone] | | | +--------+---------+ + + + [...] + + + | Blood Pressure | 128/56 | 07/29/2013 5:56 PM | | | | | PST | | + + + + + | Pulse | 80 | 07/29/2013 5:56 PM | | | [...] + + + + | Weight | 65.3 kg (144 lb) | 07/29/2013 5:56 PM | | | | | PST | | + + + + + | Height | - | - | | + + + + + | Body Mass Index | 27.21 | 07/23/2007 1:28 PM | | | | | PST | | + + + + + documented in this encounter Patient Instructions Patient Instructions Eladio Lynch MD - 07/29/2013 6:04 PM PSTChange Buspirone to twic e daily for one week, then once daily, for a week then off as long as you don't miss it.Elec tronically signed by Eladio Lynch MD at 07/29/2013 6:07 PM PST documented in this encounter Progress Notes Eladio Lynch MD - 07/30/2013 1:25 PM PSTFormatting of this note might be different fr om the original. ID: Martha Toth is a 72 y.o. female Chief Complaint Re-establish care HPI: Martha Toth has returned from [place] with multiple medical problems , here today to o rchestrate her medications. Patient Active Problem List Diagnosis UNSPECIFIED ASTHMA [...] every 4-6 hours as needed 1 12 ALPRAZolam 0.25 mg oral tablet Take 1 tablet by mouth three times daily. Indications: A NXIETY 20 tablet 0 ASPIRIN 325 MG ORAL TAB None Entered beclomethasone 80 mcg/actuation inhalation Aerosol (Aero) Inhale 3 puffs three times da jennifer. 8.7 g 12 Blood Sugar Diagnostic (ONE TOUCH ULTRA TEST) In Vitro Strip use as directed 100 3 busPIRone 10 mg oral tablet Take 1 tablet by mouth three times daily. FLUoxetine 20 mg oral capsule Take 1 capsule by mouth once daily. insulin glargine (LANTUS) 100 unit/mL subcutaneous solution Inject 20 Units under the s kin (SUBC) once daily at bedtime. 10 mL lisinopril 10 mg oral tablet Take 1 tablet by mouth. 90 tablet 3 methocarbamol 750 mg oral tablet Take 2 tablets by mouth four times daily. 120 tablet 0 MISCELLANEOUS MEDICAL SUPPLY (RX DURABLE MEDICAL EQUIPMENT [place]) Home O2. 1 each 0 montelukast (SINGULAIR) 10 mg oral tablet Take 1 tablet by mouth once daily in the even ing. 30 tablet 12 omeprazole 20 mg oral capsule,delayed release(DR/EC) Take 1 capsule by mouth once daily . No current facility-administered medications on file prior to visit. Allergies Allergen Reactions Clarification Needed MILK,BEES, PCN,BLOOD Penicillins Hives Physical Examination Blood pressure 128/56, pulse 80, weight 65.318 kg (144 lb), SpO2 96.00%. Patient is alert and oriented times three. no apparent distress ambulatory without assistance or gait abnormality. Assessment: 1. DM W/O COMPLICATION TYPE II HEMOGLOBIN A1C, BLOOD, COMPLETE METABOLIC SET (NA,K,CL,CO2, BUN,CREAT,GLUC,CA,AST,ALT,BILI TOTAL,ALK PHOS,ALB,PROT TOTAL), TSH, CBC ONLY, HYDROcodone-ac etaminophen (NORCO) 10-325 mg oral tablet, CBC (HEMOGRAM) ONLY 2. COPD (chronic obstructive pulmonary disease) MISCELLANEOUS MEDICAL SUPPLY (RX DURABLE M EDICAL EQUIPMENT MN), PULSE OXIMETRY - BACK OFFICE F/u one month, I discussed my lack of understanding for her home O2 in [facility]. Without Sleep a pnea. O2 sat 96 % RA here today. Radha Jennings CMA - 07/29/2013 5:57 PM PST SUBJECTIVE: Martha Toth is a 72 y.o. female who is in clinic today accompanied by daughter ASSESSMENT: Chief Complaint Patient presents with Follow-up encounter PLAN: Additional staff support provided to the patient during this encounter included: Health maintenance reviewed and documented. documented in this e ncounter Plan of Treatment + + +--------+ + + | Name | Type | Priori | Associated Diagnoses | Order Schedule | | | | ty | | | + + +--------+ + + | PULSE OXIMETRY - | Procedures | Routin | COPD (chronic | Ordered: 07/29/2013 | | BACK OFFICE | | e | obstructive | | | | | | pulmonary disease) | | | | | | (HCC) | | + + +--------+ + + documented as of this encounter Procedures + +--------+ + + + | Procedure Name | Priori | Date/Time | Associated Diagnosis | Comments | | | ty | | | | + +--------+ + + + | CBC (HEMOGRAM) ONLY | Routin | 07/29/2013 | DM W/O | Results for this | | | e | 6:10 PM | COMPLICATION TYPE II | procedure are in the | | | | PST | | results section. | + +--------+ + + + | COMPLETE METABOLIC | Routin | 07/29/2013 | DM W/O | Results for this | | SET | e | 6:10 PM | COMPLICATION TYPE II | procedure are in the | | (NA,K,CL,CO2,BUN,CRE | | PST | | results section. | | AT,GLUC,CA,AST,ALT,B | | | | | | OVIDIO TOTAL,ALK | | | | | | PHOS,ALB,PROT TOTAL) | | | | | + +--------+ + + + | CBC ONLY | Routin | 07/29/2013 | DM W/O | Results for this | | | e | 6:10 PM | COMPLICATION TYPE II | procedure are in the | | | | PST | | results section. | + +--------+ + + + | TSH | Routin | 07/29/2013 | DM W/O | Results for this | | | e | 6:10 PM | COMPLICATION TYPE II | procedure are in the | | | | PST | | results section. | + +--------+ + + + | HEMOGLOBIN A1C, | Routin | 07/29/2013 | DM W/O | Results for this | | BLOOD | e | 6:10 PM | COMPLICATION TYPE II | procedure are in the | | | | PST | | results section. | + +--------+ + + + documented in this encounter Results CBC (HEMOGRAM) ONLY (07/29/2013 6:10 PM PST) + + + + + + | Component | Value | Ref Range | Performed | Pathologist | | | | | At | Signature | + + + + + + | WHITE CELL | 15.83 (H) | 4.40 - 11.00 | [facility] | | | COUNT | | K/cu mm | LABORATORY | | | | | | SERVICES, | | | | | | CORE | | + + + + + + | RED CELL | 3.96 (L) | 4.00 - 5.20 | [facility] | | | COUNT | | M/cu mm | LABORATORY | | | | | | SERVICES, | | | | | | CORE | | + + + + + + | HEMOGLOBIN | 11.7 (L) | 12.0 - 16.0 | [facility] | | | | | g/dL | LABORATORY | | | | | | SERVICES, | | | | | | CORE | | + + + + + + | HEMATOCRIT | 36.8 | 36.0 - 46.0 % | [facility] | | | | | | LABORATORY | | | | | | SERVICES, | | | | | | CORE | | + + + + + + | MCV | 92.9 | 80.0 - 96.0 fL | [facility] | | | | | | LABORATORY | | | | | | SERVICES, | | | | | | CORE | | + + + + + + | MCHC | 31.8 (L) | 33.0 - 35.5 | [facility] | | | | | g/dL | LABORATORY | | | | | | SERVICES, | | | | | | CORE | | + + + + + + | RDW SD | 44.1 | 35.1 - 46.3 fL | [facility] | | | | | | LABORATORY | | | | | | SERVICES, | | | | | | CORE | | + + + + + + | PLATELET | 343 | 150 - 400 K/cu | [facility] | | | COUNT | | mm | LABORATORY | | | | | | SERVICES, | | | | | | CORE | | + + + + + + | MPV | 12.5 (H) | 9.7 - 12.3 fL | [facility] | | | | | | LABORATORY | | | | | | SERVICES, | | | | | | CORE | | + + + + + + | NRBC% | 0.0 | 0.0 - 0.3 % | [facility] | | | | | | LABORATORY | | | | | | SERVICES, | | | | | | CORE | | + + + + + + | NRBC# | 0.00 | 0.00 - 0.02 | [facility] | | | | | K/cu mm | LABORATORY | | | | | | SERVICES, | | | | | | CORE | | + + + + + + + + | Specimen | + + | Blood - Blood | + + + + + | Narrative | Performed At | + + + | New methodology and reference ranges for some CBC/Differential | [facility] | | analytes in effect on 02/22/13. | LABORATORY | | | [facility] [address] | + + + + + + + + | Performing | Address | City/State/Zipcode | Phone Number | | Organization | | | | + + + + + | [facility] | [address] | [place] [address] | | | SERVICES, JR | [address] | | | + + + + + TSH (07/29/2013 6:10 PM PST) + + + + + + | Component | Value | Ref Range | Performed | Pathologist | | | | | At | Signature | + + + + + + | TSH | 0.27 (L) | 0.47 - 7.11 | [facility] | | | | | mIU/L | LABORATORY | | | | | | SERVICES, | | | | | | CORE | | + + + + + + + + | Specimen | + + | Blood - Blood | + + + + + | Narrative | Performed At | + + + | TSH reference ranges are influenced by a variety of environmental | [facility] | | influences, age, gender and ethnicity. The supplied reference limits | LABORATORY | | are based on published values utilizing a similar TSH assay, and | SERVICES, CORE | | should be interpreted with caution. Test now performed at [facility]. New | | | method effective 06/19/13. Age-adjusted reference ranges are in use. | | + + + + + + + + | Performing | Address | City/State/Zipcode | Phone Number | | Organization | | | | + + + + + | [facility] | [address] | [place] [address] | | | [place] | [address] | | | + + + + + COMPLETE METABOLIC SET (NA,K,CL,CO2,BUN,CREAT,GLUC,CA,AST,ALT,BILI TOTAL,ALK PHOS,ALB,PROT TOTAL) (07/29/2013 6:10 PM PST) + + + + + + | Component | Value | Ref Range | Performed | Pathologist | | | | | At | Signature | + + + + + + | GLUCOSE, | 136 (H) | 60 - 99 mg/dL | [facility] | | | PLASMA | | | LABORATORY | | | (LAB) | | | SERVICES, | | | | | | CORE | | + + + + + + | BUN, PLASMA | 17 | 6 - 20 mg/dL | [facility] | | | (LAB) | | | LABORATORY | | | | | | SERVICES, | | | | | | CORE | | + + + + + + | CREATININE | 1.27 (H) | 0.60 - 1.10 | [facility] | | | PLASMA | | mg/dL | LABORATORY | | | (LAB) | | | SERVICES, | | | | | | CORE | | + + + + + + | EGFR | 50 (L) | >60 mL/min | [facility] | | | - | | | LABORATORY | | | CONGOLESE | | | SERVICES, | | | | | | CORE | | + + + + + + | EGFR NON | 42 (L) | >60 mL/min | [facility] | | | -ANTONI | | | LABORATORY | | | RICAN | | | SERVICES, | | | | | | CORE | | + + + + + + | SODIUM, | 140 | 136 - 145 | [facility] | | | PLASMA | | mmol/L | LABORATORY | | | (LAB) | | | SERVICES, | | | | | | CORE | | + + + + + + | POTASSIUM, | 4.4 | 3.4 - 5.0 | [facility] | | | PLASMA | | mmol/L | LABORATORY | | | (LAB) | | | SERVICES, | | | | | | CORE | | + + + + + + | CHLORIDE, | 108 | 97 - 108 mmol/L | [facility] | | | PLASMA | | | LABORATORY | | | (LAB) | | | SERVICES, | | | | | | CORE | | + + + + + + | TOTAL CO2, | 26 | 21 - 32 mmol/L | [facility] | | | PLASMA | | | LABORATORY | | | (LAB) | | | SERVICES, | | | | | | CORE | | + + + + + + | CALCIUM, | 8.8 | 8.6 - 10.2 | [facility] | | | PLASMA | | mg/dL | LABORATORY | | | (LAB) | | | SERVICES, | | | | | | CORE | | + + + + + + | BILIRUBIN | 0.3 | 0.3 - 1.2 mg/dL | [facility] | | | TOTAL | | | LABORATORY | | | | | | SERVICES, | | | | | | CORE | | + + + + + + | TOTAL | 7.7 | 6.4 - 8.2 g/dL | [facility] | | | PROTEIN, | | | LABORATORY | | | PLASMA | | | SERVICES, | | | (LAB) | | | CORE | | + + + + + + | ALBUMIN, | 3.6 | 3.5 - 4.7 g/dL | [facility] | | | PLASMA | | | LABORATORY | | | (LAB) | | | SERVICES, | | | | | | CORE | | + + + + + + | ALK PHOS | 104 | 53 - 141 U/L | [facility] | | | | | | LABORATORY | | | | | | SERVICES, | | | | | | CORE | | + + + + + + | AST(SGOT) | 20 | 15 - 41 U/L | [facility] | | | | | | LABORATORY | | | | | | SERVICES, | | | | | | CORE | | + + + + + + | ALT (SGPT) | 7 (L) | 12 - 60 U/L | [facility] | | | | | | LABORATORY | | | | | | SERVICES, | | | | | | CORE | | + + + + + + | ANION | 7 | 4 - 11 mmol/L | [facility] | | | GAP(ALB | | | LABORATORY | | | CORRECTED) | | | SERVICES, | | | | | | CORE | | + + + + + + | POTASSIUM | No Hemo | | [facility] | | | CMNT | | | LABORATORY | | | | | | SERVICES, | | | | | | CORE | | + + + + + + | BILI T CMNT | No Hemo | | [facility] | | | | | | LABORATORY | | | | | | SERVICES, | | | | | | CORE | | + + + + + + | AST CMNT | No Hemo | | [facility] | | | | | | LABORATORY | | | | | | SERVICES, | | | | | | CORE | | + + + + + + | ANION GAP | 6 | mmol/L | [facility] | | | | | | LABORATORY | | | | | | SERVICES, | | | | | | CORE | | + + + + + + + + | Specimen | + + | Blood - Blood | + + + + + | Narrative | Performed At | + + + | GFR is estimated using the MDRD equation recommended by the | [facility] | | National Kidney Disease Education Program. Estimated GFR | LABORATORY | | Interpretive Information: <60 mL/min/1.73 sq m | SERVICES, CORE | | Chronic Kidney Disease <15 mL/min/1.73 sq m | | | Kidney Failure Estimated GFR greater that 60 mL/min/1.73 sq m is of | | | limited clinical value. The MDRD equation is not valid in the | | | following situations: - Patients under 18 years of age - Severe | | | malnutrition or obesity - Vegetarian diet - Rapidly changing kidney | | | function New reference range effective 2012 for Total proteins | | | performed in Core Lab only. | | + + + + + + + + | Performing | Address | City/State/Zipcode | Phone Number | | Organization | | | | + + + + + | [facility] | [address] | [place] [address] | | | SERVICES, [facility] | [address] | | | + + + + + HEMOGLOBIN A1C, BLOOD (07/29/2013 6:10 PM PST) + + + + + + | Component | Value | Ref Range | Performed | Pathologist | | | | | At | Signature | + + + + + + | HEMOGLOBIN | 6.0 (H)Comment: Hgb A1c | <=5.6 % | [facility] - | | | A1C | Interpretive Information | | [facility] - | | | | If you are | | [facility] | | | | screening for diabetes: | | | | | | <5.7 | | | | | | Non-diabetic | | | | | | 5.7-6.4 | | | | | | Prediabetes | | | | | | >6.4 | | | | | | Diabetes, if confirmed | | | | | | For monitoring of | | | | | | diabetes control: | | | | | | <7.0 | | | | | | Usual goal of treatment; | | | | | | low risk for | | | | | | complications | | | | | | 7.0-8.0 Some | | | | | | increased risk for | | | | | | long-term complications | | | | | | >8.0 | | | | | | Higher risk of | | | | | | complications; strongly | | | | | | consider | | | | | | | | | | | | intensifying therapy. | | | | + + + + + + + + | Specimen | + + | Blood - Blood | + + + + + + + | Performing | Address | City/State/Zipcode | Phone Number | | Organization | | | | + + + + + | [facility] | [address] | [place] [address] | | | [place] | | | | + + + + + documented in this encounter Visit Diagnoses + + | Diagnosis | + + | DM W/O COMPLICATION TYPE II - Primary Type II or unspecified type diabetes mellitus | | without mention of complication, not stated as uncontrolled | + + | COPD (chronic obstructive pulmonary disease) (HCC) Chronic airway obstruction, not | | elsewhere classified | + + documented in this encounter"
--- OUTSIDE RECORDS SUMMARY | ~2020-02-24 | XMS | Encounter Summary ---
Demographics + + + | Address | [address] [place] [address] Ln | | | [place] [address] | + + + | Home Phone | | + + + | Preferred Language | Unknown | + + + | Marital Status | | + + + | Hindu Affiliation | LINDSAY | + + + | Race | White | + + + | Ethnic Group | Not or | + + + Author + + + | Author | [facility] | + + + | Organization | [facility] | + + + | Address | Unknown | + + + | Phone | Unavailable | + + + Support + + + + + | Name | Relationship | Address | Phone | + + + + + | Jeni Shirley | ECON | [place] | | | | | [place] [address] | | + + + + + Care Team Providers + +------+ + | Care Card Cleaner Name | Role | Phone | [...] + + | 03/19/ | Office | [facility] | Eladio Lynch, | Unspecified Backache | | 2006 | Visit | at [facility] | MD [address] | (Primary Dx) | | | | [address] | [place], [place] | | | | | [facility] | [address] | | | | | and Healing, | [phone] | | | | | Building | | | | | | Floor [place], [place] | | | | | | [address] | | | | | | [phone] | | | +--------+---------+ + + + [...] current medications per medication care agreement @ [facility], family medicine as above. Marina Almanzar Rn - 03/19 2:30 PM PDTPt's cbg [id number]. documented in this encounter Plan of Treatment Not on filedocumented as of this encounter Visit Diagnoses + + | Diagnosis | + + | Backache, unspecified - Primary | + + documented in this encounter
--- OUTSIDE RECORDS SUMMARY | ~2020-02-24 | XMS | Encounter Summary ---
Demographics + + + | Address | [address] | | | [place] [address] | + + + | Home Phone | | + + + | Preferred Language | Unknown | + + + | Marital Status | | + + + | Confucianism Affiliation | [id number] | + + + | Race | Unknown | + + + | Ethnic Group | Unknown | + + + Author + + + | Author | [facility] | | | and [place] | + + + | Organization | [facility] | | | and [...] Team Providers + +------+ + | Care Pattern Stamper Name | Role | Phone | + +------+ + | Krista Alvarez | PCP | | | PA | | | + +------+ + Encounter Details +--------+ + + + + | Date | Type | Department | Care Team | Description | +--------+ + + + + | 08/24/ | Imaging | [facility] | Provider, | | | 2019 | Exam | [facility] | MD [address] | | | | | IMAGING [address] | [address] | | | | | [address] [place] | [place] [address] | | | | | [place] [address] | | | | | | [phone] | | | +--------+ + + + [...] + +--------+ + + + | MRI LUMBAR SPINE WO | Routin | 08/16/2018 | | Results for this | | CONTRAST | e | 3:55 PM | | procedure are in the | | | | PST | | results section. | + +--------+ + + + documented in this encounter Results MRI Lumbar Spine wo Contrast (08/16/2018 3:55 PM PST) + + | Specimen | [...]
--- OUTSIDE RECORDS SUMMARY | ~2020-02-24 | XMS | Encounter Summary ---
Demographics + + + | Address | [address] [place] [address] Ln | | | [place] [address] | + + + | Home Phone [...] | | | | | [place] [address] | | + + + + + Care Team Providers + +------+ + | Care Material Loader Name | Role | Phone | [...] Description | +--------+--------+ + + + | 10/08/ | Refill | [facility] | Lynch, Eladio, | Refill Request | | 2007 | | at [facility] | MD [address] | | | | | [address] | [place], [place] | | | | | [facility] | [address] | | | | | and Healing, | [phone] | | | | | Building | | | | | | Floor [facility] [place] | | | | | | [address] | | | | | | [phone] | | | +--------+--------+ + + + [...]
--- OUTSIDE RECORDS SUMMARY | ~2020-02-24 | XMS | Encounter Summary ---
Demographics + + + | Address | [address] [place] [address] Ln | | | [place] [address] | + + + | Home Phone [...] | | | | | [place] [address] | | + + + + + Care Team Providers + +------+ + | Care Ct Manager Name | Role | Phone | [...] Request | | 2013 | | at [facility] | MD [address] | | | | | [address] | [place], [place] | | | | | [facility] | [address] | | | | | and Healing, | [phone] | | | | | Building | | | | | | Floor [facility] [place] | | | | | | [address] | | | | | | [phone] | | | +--------+--------+ + + + [...]
--- OUTSIDE RECORDS SUMMARY | ~2020-02-24 | XMS | Encounter Summary ---
Demographics + + + | Address | [address] [place] [address] Ln | | | [place] [address] | + + + | Home Phone [...] | | | | | [place] [address] | | + + + + + Care Team Providers + +------+ + | Care Aeronautical Engineer Name | Role | Phone | + +------+ + | Unknown | PCP | Unavailable | + +------+ + Encounter Details +--------+ + + + + | Date | Type | Department | Care Team | Description | +--------+ + + + + | 06/02/ | Results | LAB CORE [address] | Maddie Grant | | | 1997 | Only | [address] | [phone] | | | | | [place] | | | | | | [address] | | | | | | [phone] | | | +--------+ + + + [...] + | SURGICAL PATHOLOGY | Routin | 06/02/1998 | | Results for this | | | e | | | procedure are in the | | | | | | results section. | + +--------+ + + + documented in this encounter Results SURGICAL PATHOLOGY (06/02/1998) + + + + + + | [...] | OF | | | | History:CLINICAL | | PATHOLOGY | | | | HISTORYThe patient is a | | | | | | 57 year old woman. | | | | | | GROSS | | | | | | DESCRIPTIONReceived from | | | | | | [facility], | | | | | | [place], [place], is | | | | | | oneH&E-stained slide | | | | | | bearing accession number | | | | | | [id number], fourteen | | | | | | stainedslides labeled | | | | | | [id number], sublabeled P3, | | | | | | one H&E-stained slides | | | | | | [id number], two | | | | | | H&E-stained slides | | | | | | labeled [id number], and | | | | | | two H&E-stainedslides | | | | | | labeled [id number], | | | | | | sublabeled A-B. The | | | | | | corresponding | | | | | | pathologyreports are | | | | | | dated 05/04/98, 04/28/98, | | | | | | 04/27/98, 04/25/98, | | | | | | 04/24/98,respectively. 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, RIGHT | | | | | | LOWER LOBE, POSTERIOR | | | | | | BASILAR BIOPSY (SLIDE | | | | | | [id number]): BRONCHIAL | | | | | | MUCOSA WITH CARTILAGE | | | | | | AND PULMONARY PARENCHYMA | | | | | | WITH NO TUMOR | | | | | | SEENCOLON, POLYPS AT 20 | | | | | | AND 30 CM.(SLIDE | | | | | | [id number]): | | | | | | HYPERPLASTIC POLYPS | | | | | | (2)GASTRIC BIOPSY | | | | | | ([id number], SUBLABELED | | | | | | A): GASTRIC | | | | | | FUNDIC-TYPE MUCOSA WITH | | | | | | MINIMAL CHRONIC | | | | | | INFLAMMATIONESOPHAGEAL | | | | | | BIOPSY ([id number], | | | | | | SUBLABELED B): | | | | | | SQUAMOUS MUCOSA WITH | | | | | | MODEST ACANTHOSIS AND | | | | | | OCCASIONAL | | | | | | INTRAEPITHELIAL | | | | | | EOSINOPHILS SUGGESTIVE | | | | | | OF REFLUX | | | | | | ESOPHAGITISLEFT | | | | | | PARATRACHEAL ADENOPATHY: | | | | | | NO MALIGNANT CELLS | | | | | | IDENTIFIED (SEE | | | | | | COMMENT)(Outside slides) | | | | | | Comment: The | | | | | | specimen consists | | | | | | predominantly of | | | | | | benign-appearingbronchia | | | | | | l epithelial cells. | | | | | | Case screened by: | | | | | | Lavinia Fonseca, | | | | | | C.T.Case reviewed by: | | | | | | Valentine Cabrera M.D.Case | | | | | | staffed by: Mariaa | | | | | | Claribel | | | | | | LeT:06/03/98:tgTwenty | | | | | | slides returned with a | | | | | | copy of this report. | | | | | | My [...] + | [facility] | [address] | [place] [address] | | | PATHOLOGY | [address] | | | + + + + + documented in this encounter Visit Diagnoses Not on filedocumented in this encounter"
--- OUTSIDE RECORDS SUMMARY | ~2020-02-24 | XMS | Encounter Summary ---
Demographics + + + | Address | [address] [place] [address] Ln | | | [place] [address] | + + + | Home Phone | | + + + | Preferred Language | Unknown | + + + | Marital Status | | + + + | Taoist Affiliation | LINDSAY | + + + | Race | White | + + + | Ethnic Group | Not or | + + + Author + + + | Author | [facility] | + + + | Organization | [facility] | + + + | Address | Unknown | + + + | Phone | Unavailable | + + + Support + + + + + | Name | Relationship | Address | Phone | + + + + + | Jeni Shirley | ECON | [employer] | | | | | [place] [address] | | + + + + + Care Team Providers + +------+ + | Care Lead Generation Representative Name | Role | Phone | [...] Description | +--------+--------+ + + + | 11/04/ | Refill | [facility] | Lynch, Eladio, | Refill Request | | 2007 | | at [facility] [place]Note 2] | MD [address] | | | | | [address] | [place], [place] | | | | | [facility] | [address] | | | | | and Healing, | [phone] | | | | | Building | | | | | | Floor [facility] [place] | | | | | | [address] | | | | | | [phone] | | | +--------+--------+ + + + [...]
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
--- OUTSIDE RECORDS SUMMARY | ~2020-02-24 | XMS | Encounter Summary ---
Demographics + + + | Address | [address] [place] [address] Ln | | | [place] [address] | + + + | Home Phone | | + + + | Preferred Language | Unknown | + + + | Marital Status | | + + + | Congregational Affiliation | LINDSAY | + + + [...] | | | | | [place] [address] | | + + + + + Care Team Providers + +------+ + | Care Commercial Litigation Associate Name | Role | Phone | + +------+ + | Eladio yLnch MD | PCP | | + +------+ + Encounter Details +--------+ + + + + | Date | Type | Department | Care Team | Description | +--------+ + + + + | 12/18/ | Office | General Internal | Note, Outpatient | Progress Note | | 1997 | Visit-Trans | Medicine [address] | Clinic | | | | jessica | Lizzy Sharp | | | | | | Mailcode: [id number] | | | | | | Outpatient Clinic | | | | | | [facility], [address] | | | | | | [place], [place] | | | | | | [address] | | | | | | [phone] | | | +--------+ + + + [...] as of this encounter Progress Notes Interface, Clerk Checker In - 08/30/2006 3:08 AM PST CLINIC DATE: 12/18/97 [facility] SUBJECTIVE: This [age] year old female presents for routine follow up involving the following problems: 1. Dnf-rmwwxkz-eergtnnca diabetes mellitus. (250.0) 2. Chronic failed back pain. 3. Reactive airway disease. Martha returns from an automobile trip to [place], having seen several sights, which she tolerated fairly well. She required two or three more Vicodin than her one per day scheduled dosing, and she did relapse on her smoking cessation on the return trip, but has since quit once again having smoked for two days. Her blood sugars are doing very well, remaining between 100 and 150, primarily. She has no new complaints at this time. OBJECTIVE: Blood pressure 114/70, pulse 100, respirations 16, weight 142 pounds. Her gait is somewhat guarded due to her back pain. ASSESSMENT 1. Diabetes. Continue current medications and therapies. 2. Tobacco abuse. Reassured patient that cessation was the only option. Discussed ways of avoiding cigarettes which would be difficult since her continues to smoke. 3. Reactive airway disease, stable. 4. Chronic back pain. The patient has refills due on the ; I advised her to fill those prematurely by three days and we would make a note of that in the chart. We will see her back as needed. Eladio Lynch M.D. Sewing Machine Operator Floorperson, Family Medicine ROSIE/tam documented in this encounter Plan of Treatment Not on filedocumented as of this encounter Visit Diagnoses Not on filedocumented in this encounter"
--- OUTSIDE RECORDS SUMMARY | ~2020-02-24 | XMS | Encounter Summary ---
Demographics + + + | Address | [address] [place] [address] Ln | | | [place] [address] | + + + | Home Phone | | + + + | Preferred Language | Unknown | + + + | Marital Status | | + + + | Yazidi Affiliation | LINDSAY | + + + [...] | | | | | [place] [address] | | + + + + + Care Team Providers + +------+ + | Care Sales And Marketing Coordinator Name | Role | Phone | + +------+ + | Eladio Lynch MD | PCP | | + +------+ + Reason for Visit +--------+ + | Reason | Comments | +--------+ + | Other | | +--------+ + Encounter Details +--------+---------+ + + + | Date | Type | Department | Care Team | Description | +--------+---------+ + + + | 09/05/ | Office | [facility] | Eladio Lynch | DM W/O COMPLICATION | | 2006 | Visit | Medicine at [facility] | [address] | TYPE II; GENERALIZED | | | | [place] [address] | [facility] [place] | AND UNSPECIFIED | | | | [address] | [address] | ATHEROSCLEROSIS; | | | | Mailcode: MINDY Avis | [phone] | UNSPECIFIED BACKACHE | | | | [address] | | | | | | [place], [place] | | | | | | [address] | | | | | | [phone] | | | +--------+---------+ + + + [...] + | Blood Pressure | 110/60 | 09/05/2005 1:13 PM | | | | | PST | | + + + + + | Pulse | 120 | 09/05/2005 1:13 PM | | | | | PST [...] + + + + | Weight | 85.4 kg (188 lb 4.8 | 09/05/2005 1:13 PM | | | | oz) | PST | | + + + + + | Height | - | - | | + + + + + | Body Mass Index | - | - | | + + + + + documented in this encounter Progress Notes Kiana Callaway Lpn - 09/05/2005 2:37 PM PST Addended by: KIANA CALLAWAY LPN on: 09/05/2005 2: 37:48 PM Modules accepted: Medications Eladio Brooks - 1:47 PM PSTSUBJECTIVE: Martha Toth is a 65 y.o. with rasd and niddm, now requirin g insulin 70/30, also with a medication care agreement for chronic functional back pain. is here today for a refil of opoid analgesic medication under a medication care agreement [facility] and Dr. Lynch. OBJECTIVE: Blood pressure 110/60, pulse 120, weight 188 lbs 4.8 oz (85.4 kg). no apparent distress some SOB with exercise. ext- no edema. ASSESSMENT: edema - no bid lasix asst. with nighttime symptoms - reorderred to reflect the change. documented in this enc nter Plan of Treatment Not on filedocumented as of this encounter Visit Diagnoses + + | Diagnosis | + + | Type II or unspecified type diabetes mellitus without mention of complication, not | | stated as uncontrolled | + + | Generalized and unspecified atherosclerosis | + + | Backache, unspecified | + + documented in this encounter"
--- OUTSIDE RECORDS SUMMARY | ~2020-02-24 | XMS | Encounter Summary ---
Demographics + + + | Address | [address] [place] [address] Ln | | | [place] [address] | + + + | Home Phone [...] | | | | | [place] [address] | | + + + + + Care Team Providers + +------+ + | Care Siebel Architect Name | Role | Phone | + +------+ + | Eladio Lynch MD | PCP | | + +------+ + Encounter Details +--------+ + + + + | Date | Type | Department | Care Team | Description | +--------+ + + + + | 03/24/ | Office | [facility] | Note, [...] as of this encounter Progress Notes Interface, Unhairer In - 08/20/2006 3:20 PM [facility] CLINIC DATE: 03/24/98 [facility] DATE OF : 1940. SUBJECTIVE: This is a follow-up from an incision and drainage of an abscess in the patient's left proximal thigh. OBJECTIVE: It appears well. Incision is approximately 1 cm long. There is minimal induration. There is no exudative discharge. Probing demonstrates 4-6 mm of depth at this point. ASSESSMENT: Status post incision and drainage. PLAN: 1. Continue antibiotics. We will cover this with a regular Band-Aid and recheck on Monday. 2. Medication refill. 2.1 Vicodin, #100 with one refill, 1 p.o. q.4-6h. despite her pain being in excess of the incision site or size. 2.2 Soma, #100 tablets, 1 tab p.o. t.i.d. 2.3 Glipizide 5 mg p.o. b.i.d., #100, refills for one year. 2.4 Lipitor 20 mg, 1 tab p.o. q.d., #30 with five refills. 2.5 Vancenase-AQ, #1 with three refills. 3. We will see her back on Monday for a wound recheck. Eladio Lynch M.D. Engagement Quality Consultant, Family Medicine SHB:kristi documented in this encounter Plan of Treatment Not on filedocumented as of this encounter Visit Diagnoses Not on filedocumented in this encounter"
--- OUTSIDE RECORDS SUMMARY | ~2020-02-24 | XMS | Encounter Summary ---
Demographics + + + | Address | [address] [place] [address] Ln | | | [place] [address] | + + + | Home Phone [...] | | | | | [place] [address] | | + + + + + Care Team Providers + +------+ + | Care Retail Parts Professional Name | Role | Phone | + [...] Request | | 2007 | | at [facility] | MD [address] | | | | | [address] | [place], [place] | | | | | [facility] | [address] | | | | | and Healing, | [phone] | | | | | Building | | | | | | Floor [facility] [place] | | | | | | [address] | | | | | | [phone] | | | +--------+--------+ + + + [...]
--- OUTSIDE RECORDS SUMMARY | ~2020-02-24 | XMS | Encounter Summary ---
Demographics + + + | Address | [address] [place] [address] Ln | | | [place] [address] | + + + | Home Phone [...] | | | | | [place] [address] | | + + + + + Care Team Providers + +------+ + | Care Engineering Designer Name | Role | Phone | + [...] Clinic | | | | | | [facility], [address] | | | | | | [place], [place] | | | | | | [address] | | | | | | [phone] | | | +--------+ + + + [...] as of this encounter Progress Notes Interface, Charge Entry Specialist In - 08/30/2006 3:08 AM PST CLINIC DATE: 12/18/97 [facility] SUBJECTIVE: This [age] year old female presents for routine follow up involving the following problems: 1. Vsz-uwjjwhn-iszfmdruq diabetes mellitus. (250.0) 2. Chronic failed back pain. 3. Reactive airway disease. Martha returns from an automobile trip to [place], having seen several sights, which she tolerated [...] her back as needed. Eladio Lynch M.D. Acid Strength Inspector, Family Medicine ROSIE/tam documented in this encounter Plan of Treatment Not on filedocumented as of this encounter Visit Diagnoses Not on filedocumented in this encounter"
--- OUTSIDE RECORDS SUMMARY | ~2020-02-24 | XMS | Encounter Summary ---
Demographics + + + | Address | [address] [place] [address] Ln | | | [place] [address] | + + + | Home Phone [...] | | | | | [place] [address] | | + + + + + Care Team Providers + +------+ + | Care Dinner Cook Name | Role | Phone | + [...]
--- OUTSIDE RECORDS SUMMARY | ~2020-02-24 | XMS | Encounter Summary ---
Demographics + + + | Address | [address] [place] [address] Ln | | | [place] [address] | + + + | Home Phone | | + + + | Preferred Language | Unknown | + + + | Marital Status | | + + + | Adventism Affiliation | LINDSAY | + + + [...] | | | | | [place] [address] | | + + + + + Care Team Providers + +------+ + | Care Materials Inspector Name | Role | Phone | + +------+ + | Eladio Lynch MD | PCP | | + +------+ + Reason for Visit + + + | Reason | Comments | + + + | Follow-up encounter | on meds. | + + + Encounter Details +--------+---------+ + + + | Date | Type | Department | Care Team | Description | +--------+---------+ + + + | 12/12/ | Office | [facility] Primary Care | Eladio Lynch, | Unspecified Backache | | 2006 | Visit | at [facility] | MD [address] | (Primary Dx); NIDDM | | | | [address] | [place], [place] | (Non-Insulin | | | | [facility] | [address] | Dependent Diabetes | | | | and Healing, | [phone] | Mellitus) | | | | [facility] | | | | | | Floor [place], [place] | | | | | | [address] | | | | | | [phone] | | | +--------+---------+ + + + [...] + + + | Blood Pressure | 92/50 | 12/12/2006 11:07 AM | | | | | PDT | | + + + + + | Pulse | 88 | 12/12/2006 11:07 AM | | | | | PDT | | + + + + + | Temperature | - | - | | + + + + + | Respiratory Rate | 16 | 12/12/2006 11:07 AM | | | | | PDT | | + + + + + | Oxygen Saturation | - | - | | + + + + + | Inhaled Oxygen | - | - | | | Concentration | | | | + + + + + | Weight | 86.8 kg (191 lb 4 | 12/12/2006 11:07 AM | | | | oz) | PDT | | + + + + + | Height | - | - | | + + + + + | Body Mass Index | 35.84 | 07/14/2006 9:22 AM | | | | | PST | | + + + + + documented in this encounter Progress Notes Ruby Ford - 12/13/2006 9:55 AM PDT Addended by: RUBY FORD on: 12/13/2006 9:55:57 AM Modules accepted: Orders ladio Lynch - 2006 8:42 AM PDT ID: Martha Toth is a 66 y.o. Female CC: wrist Fx. HPI: 1 week out from fall and fracture cared for through [facility], no films or records avail able. Pt in cast. She is here today for a refil of opoid analgesic medication under a medication care agreeme [facility] health and [facility], family medicine and Dr. Lynch. Patient [...] OF BRONCHUS AND LUNG, UNSPECIFIED SITE 162.9 No ins. Limitted meds. Physical Examination Blood pressure 92/50, pulse 88, resp. rate 16, weight 86.750 kg (191 lbs 4.0 oz). no apparent distress Cast slightly loose but intact. ambulatory without assistance or gait abnormality. ASSESSMENT: Encounter Diagnoses Code Name Primary? 724.5 Unspecified Backache Yes Plan: VICODIN ES 7.5 MG-750 MG TAB 250.00AN NIDDM (Non-Insulin Dependent Diabetes Mellitus) Plan: FINGER STICK BLOOD GLUCOSE (BY MONITOR), POC Refill current medications per medication care agreement @ [facility], family medicine as above. New contract reviewed and signed today at this visit, available on [employer]. documented in this encou nter Plan of Treatment Not on filedocumented as of this encounter Procedures + +--------+ + + + | Procedure Name | Priori | Date/Time | Associated Diagnosis | Comments | | | ty | | | | + +--------+ + + + | CAPILLARY BLOOD | Routin | 12/12/2006 | NIDDM (Non-Insulin | Results for this | | GLUCOSE (NO CHG), | e | 12:08 PM | Dependent Diabetes | procedure are in the | | POC | | PDT | Mellitus) | results section. | + +--------+ + + + | CONTROLLED SUBSTANCE | | 12/12/2006 | | Results for this | | AGREEMENT | | 10:27 AM | | procedure are in the | | | | PDT | | results section. | + +--------+ + + + documented in this encounter Results FINGER STICK BLOOD GLUCOSE (BY MONITOR), POC (12/12/2006 12:08 PM PDT) + +-------+ + + + | Component | Value | Ref Range | Performed | Pathologist | | | | | At | Signature | + +-------+ + + + | BLOOD | 458 | | [facility] | | | GLUCOSE BY | | | OF CARE | | | MONITOR | | | TESTS | | + +-------+ + + + + + | Specimen | + + | | + + + + + + + | Performing | Address | City/State/Zipcode | Phone Number | | Organization | | | | + + + + + | [facility] | [address] | [place], [place] | | | [place], POINT OF CARE | [address] | [address] | | | TESTS | | | | + + + + + | [facility] | [address] [facility] | [place], [place] | | | TESTS | [address] | [address] | | + + + + + CONTROLLED SUBSTANCE AGREEMENT (12/12/2006 10:27 AM PDT) + + + | Narrative | Performed At | + + + | Ordered by an | | | unspecified provider. | | + + + + + | Transcriptions | + + | 12/12/2006 10:27 AM PDT | | | + + documented in this encounter Visit Diagnoses + + | Diagnosis | + + | Backache, unspecified - Primary | + + | NIDDM (non-insulin dependent diabetes mellitus) Type II or unspecified type diabetes | | mellitus without mention of complication, not stated as uncontrolled | + + documented in this encounter"
--- OUTSIDE RECORDS SUMMARY | ~2020-02-24 | XMS | Encounter Summary ---
Demographics + + + | Address | [address] [place] [address] Ln | | | [place] [address] | + + + | Home Phone [...] | | | | | [place] [address] | | + + + + + Care Team Providers + +------+ + | Care Breastfeeding Program Coordinator Name | Role | Phone | [...] as of this encounter Progress Notes Interface, Bench Tool Maker In - 03/06/2005 7:57 AM PDT [id number] TARI CALDWELL Clinic Date: 04/26/2004 [facility] Subjective: Ms. Toth is here originally [...] her pain level is at 10. Assessment: Fpg-mmuyqhl-yrihecqrf diabetes mellitus. Plan: We will decrease her [...] supply. Eladio Lynch M.D. ROSIE / KIMBERLEY [id number] / [id number] / [id number] / documented i n this encounter Plan of Treatment Not on filedocumented as of this encounter Visit Diagnoses Not on filedocumented in this encounter"
--- OUTSIDE RECORDS SUMMARY | ~2020-02-24 | XMS | Encounter Summary ---
Demographics + + + | Address | [address] [place] [address] Ln | | | [place] [address] | + + + | Home Phone [...] | | | | | [place] [address] | | + + + + + Care Team Providers + +------+ + | Care Stone Setter Metal Optical Frames Name | Role | Phone | + +------+ + PCP | Unavailable | + +------+ + Encounter Details +--------+ + + + + | Date | Type | Department | Care Team | Description | +--------+ + + + + | 10/02/ | Results | [facility] | Eladio Lynch, | | | 1998 | Only | Medicine at [facility] | [address] | | | | | [place] [address] | [place], [place] | | | | | [address] | [address] | | | | | Mailcode: MINDY Albarran | [phone] | | | | | [address] | | | | | | [place], [place] | | | | | | [address] | | | | | | [phone] | | | +--------+ + + + [...] | | + +---------+ + + | [facility] DEPARTMENT OF | | | | | RADIOLOGY | | | | + +---------+ + + documented in this encounter Visit Diagnoses Not on filedocumented in this encounter"
--- OUTSIDE RECORDS SUMMARY | ~2020-02-24 | XMS | Encounter Summary ---
Demographics + + + | Address | [address] [place] [address] Ln | | | [place] [address] | + + + | Home Phone | | + + + | Preferred Language | Unknown | + + + | Marital Status | | + + + | Gnosticist Affiliation | LINDSAY | + + + | Race | White | + + + | Ethnic Group | Not or | + + + Author + + + | Author | [facility] | + + + | Organization | [facility] | + + + | Address | Unknown | + + + | Phone | Unavailable | + + + Support + + + + + | Name | Relationship | Address | Phone | + + + + + | Jeni Shirley | ECON | [facility] | | | | | [place] [address] | | + + + + + Care Team Providers + +------+ + | Care Cake Knocker Name | Role | Phone | + [...] as of this encounter Progress Notes Interface, Pathologist Assistant In - 03/06/2005 12:17 AM PDT [id number] TARI CALDWELL Clinic Date: 09/13/2004 [facility] Subjective: This is a visit to refill chronic pain medications for Ms. Toth who has generalized pain from her low back as well as multiple joint osteoarthritis. She has been on oral narcotics for many years. At the present time, she is on a medication care agreement at [facility] for Vicodin 5/500 one p.o. q.i.d. with 1 refill. She also uses Soma 1 p.o. t.i.d. This will be filled #90 with 1 refill today. We will have her followup in 2 months, and we will considerately review her diabetes as well as her other problems at that point in time. Eladio Lynch M.D. ROSIE / KIMBERLEY [id number] / [id number] / [id number] / Electronically signed by Eladio Lynch 09-20-2004 09:24:00 AM documented i n this encounter Plan of Treatment Not on filedocumented as of this encounter Visit Diagnoses Not on filedocumented in this encounter"
--- OUTSIDE RECORDS SUMMARY | ~2020-02-24 | XMS | Encounter Summary ---
Demographics + + + | Address | [address] [place] [address] Ln | | | [place] [address] | + + + | Home Phone [...] | | | | | [place] [address] | | + + + + + Care Team Providers + +------+ + | Care Marine Gear Keeper Name | Role | Phone | + [...] Request | | 2006 | | at [facility] | MD [address] | | | | | [address] | [facility] [place] | | | | | [facility] | [address] | | | | | and Healing, | [phone] | | | | | Building | | | | | | Floor [facility] [place] | | | | | | [address] | | | | | | [phone] | | | +--------+--------+ + + + [...]
--- OUTSIDE RECORDS SUMMARY | ~2020-02-24 | XMS | Encounter Summary ---
Demographics + + + | Address | [address] [place] [address] Ln | | | [place] [address] | + + + | Home Phone [...] | | | | | [place] [address] | | + + + + + Care Team Providers + +------+ + | Care Ethanol Operations Manager Name | Role | Phone | + +------+ + | Eladio Lynch MD | PCP | | + +------+ + Encounter Details +--------+ + + + + | Date | Type | Department | Care Team | Description | +--------+ + + + + | 10/26/ | Office | [facility] | Note, [...] as of this encounter Progress Notes Interface, Tube Bender In - 04/18/2006 1:05 AM PDTCLINIC DATE: 10/26/2001 [facility] SUBJECTIVE: She is known to our clinic with diabetes type 2, history of chronic back pain, hemorrhoids, and lung malignancy back in 1992. She is also a nonsmoker with chronic bronchitis. She stopped smoking for 14 months now. She had a surgery for her lung malignancy in 1992. Today, she presents with a history of upper back pain worsening with coughing. No history of other complaints. No history of new complaints. PHYSICAL EXAMINATION: CHEST: Clear. HEENT: Her throat is not congested. LABORATORY DATA: An EKG was done to rule out cardiac causes for this pain, and it came back not different from the one done back on September 13, 2001, with normal sinus rhythm and nonspecific T-wave abnormalities. IMPRESSION AND PLAN: This may be exacerbation of her chronic bronchitis, and she was prescribed ciprofloxacin 250 mg b.i.d. for 10 days, and she will be seeing Dr. Lynch, her regular physician, on November 19, 2001. Sophie Webster M.D. NIKOLAI / KIMBERLEY [id number] / [id number] / [id number] / [id number] Tdocumented in this encounter Plan of Treatment Not on filedocumented as of this encounter Visit Diagnoses Not on filedocumented in this encounter"
--- OUTSIDE RECORDS SUMMARY | ~2020-02-24 | XMS | Encounter Summary ---
Demographics + + + | Address | [address] [place] [address] Ln | | | [place] [address] | + + + | Home Phone [...] | | | | | [place] [address] | | + + + + + Care Team Providers + +------+ + | Care Gum Rolling Machine Tender Name | Role | Phone | + +------+ + | Eladio Lynch MD | PCP | | + +------+ + Encounter Details +--------+ + + + + | Date | Type | Department | Care Team | Description | +--------+ + + + + | 08/13/ | Office | [facility] | Note, [...] as of this encounter Progress Notes Interface, Container Crane Operator In - 08/07/2006 3:12 AM PSTCLINIC DATE: 08/13/1998 [facility] REASON FOR VISIT: Ms. 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 PROBLEM: She is having some problems with post surgical pain that sounds pleuritic in nature with sharp stabbing pains happening positionally with some relief in changing positions. She does not seem to have the same component of pain with deep inspirations. Her reactive airway disease has increased, which she blames in part on her smoking in the house. She has been using her albuterol approximately q.2h. as well has Atrovent. She does not have any inhaled steroids at this time. She was recently diagnosed with bronchitis, but feels that this has resolved for the most part. She did receive a follow-up x-ray post surgically, which showed no effusion. ASSESSMENT AND PLAN: 1. Pain, post surgical in nature after right lower lobe lobectomy. The plan is to continue her Vicodin and Soma as prescribed by Dr. Griffith. She is guarded against taking greater than six per day. She will receive 120 Vicodin with 1 refill. Soma 1 p.o. t.i.d., 90 with 1 refill as well. 2. Reactive airway disease. She is five months status post tobacco cessation and currently tobacco free, except for second-hand smoke, which causes her acute asthma exacerbation at this point. We discussed the issue that this may subside over time, as she is a recently quit smoker. We will prescribe Flovent 2 puffs b.i.d. to help the albuterol recover its effectiveness and prevent the frequency of her using it. 3. We will see her back in three weeks. 4. A one-month follow-up x-ray would seem appropriate, then yearly thereafter if there is no reason to do otherwise. Eladio Lynch M.D. Pinsetter Mechanic Helper, Family Medicine ROSIE/jacobo d ocumented in this encounter Plan of Treatment Not on filedocumented as of this encounter Visit Diagnoses Not on filedocumented in this encounter"
--- OUTSIDE RECORDS SUMMARY | ~2020-02-24 | XMS | Encounter Summary ---
Demographics + + + | Address | [address] [place] [address] Ln | | | [place] [address] | + + + | Home Phone [...] | | | | | [place] [address] | | + + + + + Care Team Providers + +------+ + | Care Donations Attendant Name | Role | Phone | + [...] + + | 01/17/ | Office | [facility] | Eladio Lynch, | Unspecified Backache | | 2007 | Visit | at [facility] | MD [address] | (Primary Dx); NIDDM | | | | [address] | [place], [place] | (Non-Insulin | | | | [facility] | [address] | Dependent Diabetes | | | | and Healing, | [phone] | Mellitus); Encounter | | | | | | for Long-Term | | | | Floor [facility] [place] | | (Current) Use of | | | | [address] | | Other Medications | | | | [phone] | | | +--------+---------+ + + + [...] last year, not present while i n [place] for recent vacation (as stress was lower). Formerly the singing was Elle/ pleasant music. Now changed, has to do with anabaptism, self-related themes, not menacing or commanding. Similar but not same as "hearing a song in head." Mood up/down, sertraline helps . Limited anhedonia. Not sleeping well, better in [place]. Apettite up/down. Concentratio n good. Guilt on/off. [...] DEPARTMENT OF | [address] | [place], [place] [address] | | | PATHOLOGY | [address] | | | + + + + + | [facility] DEPARTMENT OF | [address] | [place] [address] | | | PATHOLOGY | [address] [...] Performed At | + + + | [id number] Estimated GFR = 40 mL/min/1.73 sq m if non- | [facility] | | [place] [id number] Estimated GFR = 49 mL/min/1.73 sq m if | DEPARTMENT OF | | [place] GFR is estimated using the MDRD equation [...] | + + + + + | [facility] | [address] | [place] [address] | | | PATHOLOGY | [address] | | | + + + + + | [facility] | [address] | [place] [address] | | | PATHOLOGY | [address] [...] | High >7.9% RLB | | | ([employer] [address] [facility]) [place] [address] | | | [place] [facility] [place] [address] | | + + + + + + + + | Performing | Address | City/State/Zipcode | Phone Number | | Organization | | | | + + + + + | [facility] | [address] [place] [address] | | | LABORATORY | | | [...] Performed At | + + + | [id number] Estimated GFR = 40 mL/min/1.73 sq m if non- | [facility] | | [place] [id number] Estimated GFR = 49 mL/min/1.73 sq m if | DEPARTMENT OF | | [place] GFR is estimated using the MDRD equation [...] | + + + + + | [facility] | [address] | [place] [address] | | | PATHOLOGY | [address] | | | + + + + + | [facility] | [address] | [place] [address] | | | PATHOLOGY | [address] [...]
--- OUTSIDE RECORDS SUMMARY | ~2020-02-24 | XMS | Encounter Summary ---
Demographics + + + | Address | [address] [place] [address] Ln | | | [place] [address] | + + + | Home Phone | | + + + | Preferred Language | Unknown | + + + | Marital Status | | + + + | Scientology Affiliation | LINDSAY | + + + | Race | White | + + + | Ethnic Group | Not or | + + + Author + + + | Author | [facility] | + + + | Organization | [facility] | + + + | Address | Unknown | + + + | Phone | Unavailable | + + + Support + + + + + | Name | Relationship | Address | Phone | + + + + + | Jeni Shirley | ECON | [facility]A | | | | | [place] [address] | | + + + + + Care Team Providers + +------+ + | Care Cheese Wrapper Name | Role | Phone | + [...] | 2005 | Visit | Medicine at [facility] | [address] | of Breath; NIDDM | | | | Uriah [address] | [place], [place] | (Non-Insulin | | | | [address] | [address] | Dependent Diabetes | | | | Mailcode: MINDY Albarran | [phone] | Mellitus); | | | | [address] | | Unspecified Backache | | | | [place], [place] | | | | | | [address] | | | | | | [phone] | | | +--------+---------+ + + + [...] for sob, which when asked, has been career development specialist. documented in this en counter Plan of [...] by | | | | | | [facility] | | | | | | [facility]. | | | | + + + + + + + + | Specimen | + + | Blood - Blood | + + + + + + + | Performing | Address | City/State/Zipcode | Phone Number | | Organization | | | | + + + + + | [facility] | [address] | [place] [address] | | | LABORATORY | | | [...] | + + + + + | [facility] | [address] | [place] [address] | | | PATHOLOGY | [address] | | | + + + + + | [facility] | [address] | [place] [address] | | | PATHOLOGY | [address] [...] | uIU/ml | | | | | [facility] | | | | | | Laboratories. | | | | + + + + + + + + | Specimen | + + | Blood | + + + + + + + | Performing | Address | City/State/Zipcode | Phone Number | | Organization | | | | + + + + + | [facility] | [address] | [place] [address] | | | LABORATORY | | | [...] Performed At | + + + | [id number] Estimated GFR = 48 mL/min/1.73 sq m if non- | [facility] | | [id number] Estimated GFR = 58 mL/min/1.73 sq m [...] | + + + + + | [facility] | [address] | [place] [address] | | | PATHOLOGY | [address] | | | + + + + + | [facility] | [address] | [place] [address] | | | PATHOLOGY | [address] [...]
--- OUTSIDE RECORDS SUMMARY | ~2020-02-24 | XMS | Encounter Summary ---
Demographics + + + | Address | [address] [place] [address] Ln | | | [place] [address] | + + + | Home Phone [...] | | | | | [place] [address] | | + + + + + Care Team Providers + +------+ + | Care X Ray Consultant Name | Role | Phone | [...] [id number] | | | | | | [place], [place] | | | | | | [address] | | | | | | [phone] | | | +--------+ + + + [...] | + + + + + | [facility] | [address] | [place] [address] | | | PATHOLOGY | [address] [...] | + + + + + | [facility] | [address] | [place] [address] | | | PATHOLOGY | [address] [...] | + + + + + | [facility] | [address] | [place] [address] | | | PATHOLOGY | [address] [...] | + + + + + | [facility] | [address] | [place] [address] | | | PATHOLOGY | [address] | | | + + + + + documented in this encounter Visit Diagnoses Not on filedocumented in this encounter"
--- OUTSIDE RECORDS SUMMARY | ~2020-02-24 | XMS | Encounter Summary ---
Demographics + + + | Address | [address] [place] [address] Ln | | | [place] [address] | + + + | Home Phone [...] | | | | | [place] [address] | | + + + + + Care Team Providers + +------+ + | Care Direct Mail Manager Name | Role | Phone | [...] Only | [address] | [phone] | | | | | [place] | | | | | | [address] | | | | | | [phone] | | | +--------+ + + + [...] | + + + + + | [facility] | [address] | [place] [address] | | | PATHOLOGY | [address] | | | + + + + + documented in this encounter Visit Diagnoses Not on filedocumented in this encounter"
--- OUTSIDE RECORDS SUMMARY | ~2020-02-24 | XMS | Encounter Summary ---
Demographics + + + | Address | [address] [place] [address] Ln | | | [place] [address] | + + + | Home Phone [...] | UA | | | | | [place] [id number] | | + + + + + Care Team Providers + +------+ + | Care Personalization Specialist Name | Role | Phone | + +------+ + PCP | Unavailable | + +------+ + Encounter Details +--------+ + + + + | Date | Type | Department | Care Team | Description | +--------+ + + + + | 05/10/ | Results | | Other, Faculty | | | 1998 | Only | | [phone] | | +--------+ + + + + [...] CT CHEST W/ LIVER | Routin | 05/28/1999 | | Results for this | | SURVEY | e | 9:00 AM | | procedure are in the | | | | PDT | | results section. | + +--------+ + + + | X-RAY CHEST 2 VIEW | Priori | 05/10/1999 | | Results for this | | | ty | 4:01 PM | | procedure are in the | | | | PDT | | results section. | + +--------+ + + + documented in this encounter Results CT CHEST W/ LIVER SURVEY (05/28/1999 9:00 AM PDT) + + + + + + | Component | Value | Ref Range | Performed | Pathologist | | | | | At | Signature | + + + + + + | CT CHEST W/ | Radiologist 1: BERNIE, | | | | | LIVER | Samantha MCKEON M.D.CHEST | | | | | SURVEY | COMPUTERIZED TOMOGRAPHY | | | | | | WITH LIVER SURVEY: | | | | | | 05/28/99. | | | | | | Dictated on 05/28/99. | | | | | | HISTORY: The patient has | | | | | | a history of lung | | | | | | cancer. No | | | | | | previousexaminations are | | | | | | available. PROCEDURE: | | | | | | Following the | | | | | | uneventful intravenous | | | | | | administration of 140cc | | | | | | of Omnipaque, contiguous | | | | | | 7 mm images through the | | | | | | chest and liverwere | | | | | | obtained. CHEST | | | | | | FINDINGS: (contrast | | | | | | enhanced) No enlarged | | | | | | hilar, mediastinal | | | | | | oraxillary lymph nodes | | | | | | are seen. The lungs | | | | | | are clear. No | | | | | | pulmonarynodules are | | | | | | seen. The liver is | | | | | | diffusely fatty with no | | | | | | focal lesions seen. | | | | | | The spleen,pancreas, | | | | | | adrenal glands, | | | | | | visualized portion of | | | | | | the kidneys and bowelare | | | | | | within normal limits. | | | | | | The aorta and IVC are | | | | | | unremarkable as isthe | | | | | | gallbladder. IMPRESSION: | | | | | | 1. No abnormal masses | | | | | | seen. 2. The liver is | | | | | | diffusely fatty. | | | | | | END [...] | | + +---------+ + + | [facility] DEPARTMENT OF | | | | | RADIOLOGY | | | | + +---------+ + + CHEST 2 VIEW (05/10/1999 4:01 PM PDT) + + + + + + | Component | Value | Ref Range | Performed | Pathologist | | | | | At | Signature | + + + + + + | CHEST, 2 | Radiologist 1: CHRISTIANE, | | | | | VIEWS [place] | Le ROBERSONCHEST | | | | | STEREO | TWO VIEWS: 05/10/99 at | | | | | | 16:01 hours. | | | | | | Dictated on 05/11/99 | | | | | | COMPARISON: Comparison | | | | | | is made with prior study | | | | | | of 10/02/98. FINDINGS: | | | | | | Surgical clips are again | | | | | | seen in the right | | | | | | tracheobronchialangle | | | | | | and in the right | | | | | | inferior hilum. Less | | | | | | well seen are | | | | | | linearscars in the | | | | | | right, mid, and lower | | | | | | lung. The lungs are | | | | | | normallyinflated and | | | | | | clear. The heart and | | | | | | pulmonary vessels are | | | | | | normal insize. There | | | | | | is minimal blunting of | | | | | | the right costophrenic | | | | | | sulcus,unchanged. Left | | | | | | costophrenic sulcus is | | | | | | sharp. The | | | | | | skeletalstructures are | | | | | | intact. IMPRESSION: 1. | | | | | | No significant change | | | | | | since 10/02/98. 2. No | | | | | | acute cardiopulmonary | | | | | | disease. 3. Surgical | | | | | | clips in the right | | | | | | tracheobronchial angle | | | | | | and inferiorright hilum, | | | | | | with right, mid, and | | | | | | lower lung scars. The | | | | | | findings were phoned to | | | | | | Huyen Guzman by | | | | | | Dr. Vaughan | | | | | | on05/11/99.END OF | | | | | | [...] | | + +---------+ + + | [facility] DEPARTMENT OF | | | | | RADIOLOGY | | | | + +---------+ + + documented in this encounter Visit Diagnoses Not on filedocumented in this encounter"
--- OUTSIDE RECORDS SUMMARY | ~2020-02-24 | XMS | Encounter Summary ---
Demographics + + + | Address | [address] [place] [address] Ln | | | [place] [address] | + + + | Home Phone [...] | [place] | | | | | [place] [id number] | | + + + + + Care Team Providers + +------+ + | Care Customer Service Dispatcher Name | Role | Phone | + [...] as of this encounter Progress Notes Interface, Person Investigator In - 04/25/2006 3:06 AM PDTReferring Provider: [...] pressure (if available): Other: REDD ARGUETA MD DEVIL TENDER/Fellow/Resident M.D. * I have personally supervised the * I have personally interpreted above test. the results of this test. GP/ds1 A cc: documente d in this encounter Plan of Treatment Not on filedocumented as of this encounter Visit Diagnoses Not on filedocumented in this encounter"
--- OUTSIDE RECORDS SUMMARY | ~2020-02-24 | XMS | Encounter Summary ---
Demographics + + + | Address | [address] [place] [address] Ln | | | [place] [address] | + + + | Home Phone [...] | UA | | | | | [place] [address] | | + + + + + Care Team Providers + +------+ + | Care Finishing Range Supervisor Name | Role | Phone | + +------+ + PCP | Unavailable | + +------+ + Encounter Details +--------+ + + + + | Date | Type | Department | Care Team | Description | +--------+ + + + + | 06/05/ | Results | | Other, Faculty | | | 1997 | Only | | [phone] | | +--------+ + + + + [...] | | + +---------+ + + | [facility] DEPARTMENT OF | | | | [...] | | + +---------+ + + | [facility] DEPARTMENT OF | | | | [...] | | + +---------+ + + | [facility] DEPARTMENT OF | | | | [...] | | + +---------+ + + | [facility] DEPARTMENT OF | | | | [...] | | + +---------+ + + | [facility] DEPARTMENT OF | | | | [...] | | + +---------+ + + | [facility] DEPARTMENT OF | | | | [...]
--- OUTSIDE RECORDS SUMMARY | ~2020-02-24 | XMS | Encounter Summary ---
Demographics + + + | Address | [address] [place] [address] Ln | | | [place] [address] | + + + | Home Phone [...] | | | | | [place] [address] | | + + + + + Care Team Providers + +------+ + | Care Canine Service Instructor Trainer Name | Role | Phone | [...] [id number] | | | | | | [place], [place] | | | | | | [address] | | | | | | [phone] | | | +--------+ + + + [...] + + + + + | [facility] | [address] | [place] [address] | | | PATHOLOGY | [address] [...] + + + + + | [facility] | [address] | [place] [address] | | | PATHOLOGY | [address] [...] + + + + + | [facility] | [address] | [place] [address] | | | PATHOLOGY | [address] [...] + + + + + | [facility] | [address] | [place] [address] | | | PATHOLOGY | [address] [...] + + + + + | [facility] | [address] | [place] [address] | | | PATHOLOGY | [address] [...] + + + + + | [facility] | [address] | [place] [address] | | | PATHOLOGY | [address] [...] + + + + + | [facility] | [address] | [place] [address] | | | PATHOLOGY | [address] [...] + + + + + | [facility] | [address] | [place] [address] | | | PATHOLOGY | [address] [...] + + + + + | [facility] | [address] | [place] [address] | | | PATHOLOGY | [address] [...] + + + + + | [facility] | [address] | [place] [address] | | | PATHOLOGY | [address] [...] + + + + + | [facility] | [address] | [place] [address] | | | PATHOLOGY | [address] [...] + + + + + | [facility] | [address] | [place] [address] | | | PATHOLOGY | [address] [...] + + + + + | [facility] | [address] | [place] [address] | | | PATHOLOGY | [address] [...] + + + + + | [facility] | [address] | [place] [address] | | | PATHOLOGY | [address] | | | + + + + + documented in this encounter Visit Diagnoses Not on filedocumented in this encounter"
--- OUTSIDE RECORDS SUMMARY | ~2020-02-24 | XMS | Encounter Summary ---
Demographics + + + | Address | [address] [place] [address] Ln | | | [place] [address] | + + + | Home Phone [...] | | | | | [place] [address] | | + + + + + Care Team Providers + +------+ + | Care Audio Visual Secretary Name | Role | Phone | + [...] Request | | 2006 | | [facility] | MD [address] | | | | | [address] | [place], [place] | | | | | [facility] | [address] | | | | | and Healing, | [phone] | | | | | Building | | | | | | Floor [facility] [place] | | | | | | [address] | | | | | | [phone] | | | +--------+--------+ + + + [...]
--- OUTSIDE RECORDS SUMMARY | ~2020-02-24 | XMS | Encounter Summary ---
Demographics + + + | Address | [address] [place] [address] Ln | | | [place] [address] | + + + | Home Phone | | + + + | Preferred Language | Unknown | + + + | Marital Status | | + + + | Samaritan Affiliation | LINDSAY | + + + [...] | | | | | [place] [address] | | + + + + + Care Team Providers + +------+ + | Care First Aid Attendant Name | Role | Phone | [...] | 2004 | Visit-ECX | Medicine at [facility] | [address] | | | | | [place] [address] | [place], [place] | | | | | [address] | [address] | | | | | Mailcode: MINDY Albarran | [phone] | | | | | [address] | | | | | | [place], [place] | | | | | | [address] | | | | | | [phone] | | | +--------+ + + + [...]
--- OUTSIDE RECORDS SUMMARY | ~2020-02-24 | XMS | Clinical Summary ---
Demographics + + + | Address | [address] [place] [address] Ln | | | [place] [address] | + + + | Home Phone | | + + + | Preferred Language | Unknown | + + + | Marital Status | | + + + | Mu-Ism Affiliation | LINDSAY | + + + | Race | White | + + + | Ethnic Group | Not or | + + + Author + + + | Author | [facility] | + + + | Organization | [facility] | + + + | Address | Unknown | + + + | Phone | Unavailable | + + + Support + + + + + | Name | Relationship | Address | Phone | + + + + + | Jeni Shirley | ECON | [facility] | | | | | [place] [address] | | + + + + + Care Team Providers + +------+ + | Care Early Childhood Aide Classroom Name | Role | Phone | + +------+ + PCP | Unavailable | + +------+ + Source Comments WILY is fully live on both [facility] Ambulatory and [facility] InPatient.[facility] Allergies + + + + + [...] | | | | | | | [place])Indications: COPD | | | | | | | | (chronic | | | | | | | | obstructive | | | | | | | | pulmonary disease) | | | | | | | | ([facility]) | | | | | | [...] | | | | | | | [address] | | + +--------+ +--------+ + +--------+ | MEDICAID [place] | OHP | xxxxxxxx | 08/07/19 | [phone] | [address] | [address] | | | PLUS | | 14-Pre | 6 | [address] | id | | | OPEN | | sent | | [place] | | | | CARD | | | | [address] | | + +--------+ +--------+ + +--------+ + +--------+ +--------+ + + | Guarantor Name | Accoun | Relation to | Date | Phone | Billing Address | | | t Type | Patient | of | | | | | | | | | | + +--------+ +--------+ + + | Martha Toth | Person | Self | [birth year] | [address] | | | al/Fam | | 1941 | [phone] | [place] [address] | | | jennifer | | | 2 (Home) | | + +--------+ +--------+ + + Advance Directives + + + + + | Type | Date Recorded | Patient | Explanation | | | | Inspector Motor Vehicles | | + + + + + | Advance | | | | | Directives and | | | | | Living Will | | | | + + + + + | Power of | | | | | Supervisory Investigative Specialist | | | | + + + + +
--- OUTSIDE RECORDS SUMMARY | ~2020-02-24 | XMS | Encounter Summary ---
Demographics + + + | Address | [id number] [place] [address] Ln | | | [place] [address] | + + + | Home Phone [...] | | | | | [place] [address] | | + + + + + Care Team Providers + +------+ + | Care Manager Transportation Planning Name | Role | Phone | + +------+ + | Eladio Lynch MD | PCP | | + +------+ + Encounter Details +--------+ + + + + | Date | Type | Department | Care Team | Description | +--------+ + + + + | 03/22/ | Discharge | Allergy Clinic at | Summary, Discharge | D/C Summary ODDS | | 1997 | Summary-Tra | [address] | | | | | [address] | [address] | | | | | | [facility] Re[facility] | | | | | | Building, 7th floor | | | | | | [place], [place] | | | | | | [address] | | | | | | [phone] | | | +--------+ + + + [...] as of this encounter Discharge Summaries Interface, Packaging Sales In - 08/23/2006 2:03 AM PST [address] [address] [facility] MEDICAL SUMMARY OF HOSPITALIZATION Med Rec No.: [id number] Admission Date: 03/21/98 Name: Martha Toth Discharge Date: 03/22/98 STAFF PHYSICIAN: Adams Gallo M.D. Pipe Joints Supervisor, Emergency Medicine PRINCIPAL FINAL DIAGNOSIS: Perineal abscess with wound infection. PRINCIPAL PROCEDURE: I.V. antibiotics. ADDITIONAL PROCEDURE(S): Observation. REASON FOR ADMISSION: This is a 57-year-old female who was seen in the Emergency Department on March 20, 1998 for a cellulitis/abscess of her left inner thigh and perineal area. Patient had an incision and drainage (I&D) and was put on Velosef and sent home. Gram stain was obtained, but did not show any organisms. Patient returned with increased redness and pain without fevers and chills. PAST MEDICAL HISTORY: Significant for diabetes. ALLERGIES: Penicillin. PHYSICAL EXAMINATION: VITAL SIGNS: Patient was afebrile with a blood pressure of 150/80, heart rate 102. GENITOURINARY: There was packing that was removed in the perineal area. This area was erythematous and ironing worker an 8 x 6 cm distribution. This was thought to be a cellulitis on top of her previous abscess. HOSPITAL COURSE: Patient was admitted to Emergency Department Observation Unit where she received I.V. Ancef q. 6 hours. In the morning the patient reported decrease in pain and re-examination showed improvement in her cellulitis. Patient took a normal p.o. diet and was discharged home in stable condition. CONDITION ON DISCHARGE: Stable, disposition to home. DISCHARGE MEDICATION(S): 1. Velosef 500 mg p.o. q.i.d. times 10 days. 2. Vicodin 1 to 2 p.o. q. 4 hours p.r.n. pain. DISCHARGE INSTRUCTION(S): Activity: Normal. Diet: [place] [employer] (A.D.A.) 2,000 kilocalories. Followup: At [facility] in 24 to 72 hours. Ever Elizalde M.D. Resident, Emergency Medicine Adams Gallo M.D. Pipe Joints Supervisor, [facility] [place] P FAX: [facility], [facility] cc: documented in this encounter Plan of Treatment Not on filedocumented as of this encounter Visit Diagnoses Not on filedocumented in this encounter"
--- OUTSIDE RECORDS SUMMARY | ~2020-02-24 | XMS | Encounter Summary ---
Demographics + + + | Address | [id number] [place] [address] Ln | | | [place] [address] | + + + | Home Phone [...] | | | | | [place] [address] | | + + + + + Care Team Providers + +------+ + | Care Spinner Hand Name | Role | Phone | [...] as of this encounter Progress Notes Interface, Web Press Roll Tender In - 04/18/2006 1:05 AM PDTCLINIC DATE: 09/13/2001 [facility] SUBJECTIVE: Ms. Toth is a 61-year-old [...] month. Eladio Lynch M.D. ROSIE / [place] [id number] / [id number] / [id number] / Tdocumented in this encounter Plan of Treatment Not on filedocumented as of this encounter Visit Diagnoses Not on filedocumented in this encounter"
--- OUTSIDE RECORDS SUMMARY | ~2020-02-24 | XMS | Encounter Summary ---
Demographics + + + | Address | [address] [place] [address] Ln | | | [place] [address] | + + + | Home Phone [...] | | | | | [place] [address] | | + + + + + Care Team Providers + +------+ + | Care Analysis Analyst Name | Role | Phone | [...] Description | +--------+---------+ + + + | 09/17/ | Office | [facility] | Eladio Lynch, | Unspecified Backache | | 2007 | Visit | at [facility] [place] | MD [address] | (Primary Dx); | | | | [address] | [place], [place] | Generalized and | | | | [facility] | [address] | Unspecified | | | | and Healing, | [phone] | Atherosclerosis; DM | | | | Building | | w/o Complication | | | | Floor [place], [place] | | Type II; Neuropathy, | | | | [address] | | Lower Extremity | | | | [phone] | | | +--------+---------+ + + + [...] + + + | Blood Pressure | 94/50 | 09/17/2007 1:16 PM | | | | | PST | | + + + + + | Pulse | 92 | 09/17/2007 1:16 PM | | | [...] | Weight | 85.4 kg (188 lb 4 | 09/17/2007 1:16 PM | | | | oz) | PST | | + + + + + | Height | - | - | | + + + + + | Body Mass Index | 35.57 | 07/23/2007 1:28 PM | | | | | PST | | + + + + + documented in this encounter Progress Notes Eladio Lynch - 09/17/2007 1:49 PM PSTFormatting of this note might be different from t he original. ID:: Martha Toth is a 67 y.o. Female CC: pain HPI: Martha Toth has had increasing pain over body due to fatigue, weather, and now househ old chores cause pian for several days. Primarily in her back. She .acknowledges tensionwith in ehr marriage intermediate frame tender. Presently she has plan to move to children in , with son in Sep t. She is relieved by the cost of her meds at the new medicaid plan. 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 rate 24, weight 85.39 kg (188 lbs 4 oz). Patient is alert and oriented times three. Cv- rrr distant Resp - dsitant and clear. Ext - cold mild purpura gen on feet 1.5 cap refil. Assessment: Encounter Diagnoses Code Name Primary? 724.5 Unspecified Backache Yes Plan: SOMA 350 MG TAB, VICODIN ES 7.5 MG-750 MG TAB 440.9 Generalized and Unspecified Atherosclerosis 250.00 DM w/o Complication Type II Plan: INSULIN SYRINGE-NEEDLE U-100 1/2 ML 31 X 5/16" 355.8M Neuropathy, Lower Extremity documented in this enco unter Plan of Treatment Not on filedocumented as of this encounter Visit Diagnoses + + | Diagnosis | + + | Backache, unspecified - Primary | + + | Generalized and unspecified atherosclerosis | + + | Type II or unspecified type diabetes mellitus without mention of complication, not | | stated as uncontrolled | + + | Neuropathy, lower extremity Mononeuritis of lower limb, unspecified | + + documented in this encounter
--- OUTSIDE RECORDS SUMMARY | ~2020-02-24 | XMS | Encounter Summary ---
Demographics + + + | Address | [address] | | | [place] [address] | + + + | Home Phone | | + + + | Preferred Language | Unknown | + + + | Marital Status | | + + + | Rastafari Affiliation | [id number] | + + + | Race | Unknown | + + + | Ethnic Group | Unknown | + + + Author + + + | Author | [facility] | | | and [place] | + + + | Organization | [facility] | | | and [place] [...] Team Providers + +------+ + | Care Import/Export Freight Forwarder Name | Role | Phone | + +------+ + | Krista Alvarez | PCP | | | PA | | | + +------+ + Reason for Visit +--------+ + | Reason | Comments | +--------+ + | Apnea | Consult | +--------+ + Encounter Details +--------+---------+ + + + | Date | Type | Department | Care Team | Description | +--------+---------+ + + + | 02/13/ | Office | [facility] [place] | [place], | COPD (chronic | | 2014 | Visit | PULMONARY [address] | Lety Lynch MD | obstructive | | | | [place], | | pulmonary disease) | | | | [place] [address] | | (HCC); Snoring; | | | | [phone] | | Insomnia; PLMD | | | | | | (periodic limb | | | | | | movement disorder); | | | | | | Iron deficiency | +--------+---------+ + + + Social History [...] + + + | Blood Pressure | 122/60 | 02/13/2015 12:58 PM | | | | | PDT | | + + + + + | Pulse | 87 | 02/13/2015 12:58 PM | | | | | PDT | | + + + + + | Temperature | - | - | | + + + + + | Respiratory Rate | 16 | 02/13/2015 12:58 PM | | | | | PDT | | + + + + + | Oxygen Saturation | 97% | 02/13/2015 12:58 PM | room air | | | | PDT | | + + + + + | Inhaled Oxygen | - | - | | | Concentration | | | | + + + + + | Weight | 62.6 kg (137 lb 14.4 | 02/13/2015 12:58 PM | | | | oz) | PDT | | + + + + + | Height | 154.9 cm (5' 1") | 02/13/2015 12:58 PM | | | | | PDT | | + + + + + | Body Mass Index | 26.06 | 02/13/2015 12:58 PM | | | | | PDT | | + + + + + documented in this encounter Patient Instructions Patient Instructions Lety Gallego MD - 02/13/2015 1:39 PM PDTChange the ProAir t o as needed only. I want you to walk more, starting with routinely walking 10 minutes 3 times a week. Continue on the Symbicort twice daily. Have labs checked today to check iron level. We will hold off the sleep study for now, but try to have someone watch you sleep, and see if you snore. You need to stick to a more regular sleep schedule. This starts with waking up at a consist ent time, and then not sleeping during the daytime. documented in this encounter Progress Notes Lety Gallego MD - 02/13/2015 12:50 PM PDTFormatting of this note might be differe nt from the original. Sleep Consult HPI Martha Toth is a 74 y.o. female patient of KIAH Leary here today for evaluation of possible sleep apnea. She started on Symbicort at her last visit and feels like her breathing has been better on that. She is using the Symbicort twice daily and then using the ProAir twice daily scheduled as well. She can currently walk from one side to the other of [facility], and walks the whole store. Jose dowling is not doing any exercise. She does do housework. She notes that their bedtime ranges from 10 pm to 4 am and they get out of bed between 6 am and 11 am. She notes that it takes them between 90 and 120 minutes to fall asleep. She wakes up at night once in a while, typically once to twice in a week. She gets up to us e the bathroom, and then has a difficult time falling back asleep. She watches TV in the bed and then turns it off when she gets drowsy and goes back to sleep. She does not have night sweats. She does not have nocturnal heartburn. She never awakens with a dry mouth and na thu congestion. She seldom awakens with a morning headache, which lasts for 30 minutes afte r awakening. She sometimes recalls dreaming in her sleep. She never begins dreaming immediately upon fa lling asleep. She has not been told that she acts out their dreams while asleep. She does n ot walk in her sleep, but she notes she once answered the phone in her sleep, and she once d id some crocheting in her sleep. She has awakened from sleep unable to move or feeling paral yzed. She notes that this has happened to her ever since she can remember, but does not occu r very often, and has not happened in a while. She sometimes has a weird, hard to describe (often creeping, crawling), unpleasant, restles s feelings in her legs or arms at bedtime or when drowsy. She has been told that her legs or arms move or twitch rhythmically at night after she falls asleep. This would only happen at certain times, such as when her legs were cold and would hurt. Using an electric blanket lopez s helped. She does snore. She notes that she is no longer waking herself up snoring since having her COPD treated. She is uncertain if she is still snoring at this point. During the daytime, she does notice fatigue and sleepiness, depending on what she does. Jose dowling has not had a car accident from falling asleep while driving. She does get sleepy when bor ed. She does not nap during the week. She does not collapse under strong emotion or when jose dowling is tired. She states that when sleep onset is difficult, that her mind does race. When sleep onset is difficult, or when she is awake in the middle of the night, she does not worry that she isn 't asleep. She is taking Xanax nightly to sleep, at 0.25mg to fall asleep and feels like this helps he r a lot. She has also taken amitriptyline as well, after a back surgery. Past Medical History Past Medical History Diagnosis Date Depression DM type 2 (diabetes mellitus, type 2) ([facility]) Lung cancer ([facility]) 1996 s/p lobectomy on right, early stage Cataract COPD (chronic obstructive pulmonary disease) ([facility]) Hayfever [place] (myocardial infarction) ([facility]) 2010 x 3, [place] CKD (chronic kidney disease) CHF (congestive heart failure) ([facility]) Childhood asthma Hyperlipidemia GERD (gastroesophageal reflux disease) [...] Years of Education: N/A 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 Social History Main Topics Smoking status: Current Some Day Smoker -- 0.50 packs/day for 60 years Types: Cigarettes Last Attempt to Quit: 10/19/2014 Smokeless tobacco: Never Used Comment: has an occasional 1/2 cigarette Alcohol Use: 0.0 oz/week 0 Not specified per week Comment: rare, 1-3/year Drug Use: No Sexual Activity: None Other Topics Concern None Social History Narrative Lives: in [place] With: her son Grew up: [place], [place] Has previously lived in: [place], [place], [place], [place], [place] Exposure to toxic chemicals: no Exposure to asbestos: yes, school and home Exposure to tuberculosis: no Has had a PPD or Quantiferon before: yes, in school and in [place], both negative Has pets at home: 4 cats and 3 dogs Has ever owned birds: yes, 4-5 years ago, was told by her doctor to get rid of them as "th ey were too much for her lungs" Other animal exposures: no Hobbies: homemaking Allergies: Allergies Allergen Reactions Penicillins Medications: Outpatient Encounter Prescriptions as of 02/13/2015 Medication Sig Dispense Refill albuterol (PROAIR HFA) 90 mcg/puff inhaler Inhale 2 puffs into the lungs every 6 hours as needed for Wheezing. ALPRAZolam (XANAX) 0.25 mg tablet Take 0.25 mg by mouth 3 times daily as needed for Anx iety. budesonide-formoterol (SYMBICORT) 160-4.5 mcg/puff inhaler Inhale 2 puffs into the lung s 2 times daily. 1 Inhaler 11 Dextromethorphan HBr (BENYLIN ADULT FORMULA PO) Take by mouth 2 times daily. diphenhydrAMINE (BENADRYL) 25 mg tablet Take 25 mg by mouth 2 times daily. FLUoxetine (PROZAC) 20 mg capsule Take 20 mg by mouth Daily. [DISCONTINUED] fluticasone (FLOVENT HFA) 220 mcg/puff inhaler Inhale 2 puffs into the l ungs 2 times daily. FUROSEMIDE PO Take 20 mg by [...] 0.1% cream Apply topically as needed. No facility-administered encounter medications on file as of 02/13/2015. Review of Systems: General: []Weight loss/gain (over 10 lbs) []Fever/chills/sweats []Night sweats Hematologic: [x]Bleeding/bruising tendencies [x]History of blood transfusion []Anemia []Enlarged lymph nodes EENT: []Hearing loss []Vision loss/change [x]Sinus congestion/nasal drainage []Nosebleeds [ ]Hoarseness Cardiac: []Chest pain []Palpitations/heart racing []Swelling of legs/ankles []Waking up at night s hort of breath [x]Difficulty sleeping flat Gastrointestinal: []Nausea/vomiting []Difficulty swallowing []Heartburn/acid reflux []Loss of appetite []Abd ominal pain Musculoskeletal: [x]Joint stiffness/swelling [x]Joint pain [x]Back pain [x]Arthritis []Gout Urologic: []Blood in urine []Frequent urination at night []Burning/painful urination []Difficulty wit h urination Neurological: [x]Headaches []Seizures [x]Memory loss or confusion []Numbness or tingling in feet or hands Psychiatric: [x]Depression [x]Anxiety/panic attacks []Suicidal ideation Pulmonary: [x]Shortness of breath [x]Frequent coughing []Excessive mucous production []Wheezing [x ]History of asthma or COPD Objective BP 122/60 mmHg | Pulse 87 | Resp 16 | Ht 1.549 m (5' 1") | Wt 62.551 kg (137 lb 14.4 oz) | BMI 26.07 kg/m2 | SpO2 97% RA General Appearance: Alert, cooperative, no distress, appears stated age Head: Normocephalic, without obvious abnormality, atraumatic Eyes: PERRL, conjunctiva clear, no scleral icterus, EOM's intact Ears: Normal TM's, external auditory canals, diminished acuity Nose: Nares normal, septum midline, mucosa normal Mouth: No oral lesions or exudate Neck: Supple, symmetrical, no adenopathy Lungs: No accessory muscle use, breath sounds are diminished bilaterally with prolongatio n of the expiratory phase, no wheezes, crackles or rhonchi Chest Wall: No deformity Heart: Regular rate and rhythm, no murmur, rub or gallop Abdomen: Soft, non-tender, non-distended Extremities: No cyanosis, clubbing, or edema Pulses: Radial pulses 2+ and symmetric Skin: Warm and dry Lymph nodes: Cervical and supraclavicular nodes normal Data: [place] sleepiness scale score 3. Immunization History Administered Date(s) Administered INFLUENZA, UNSPECIFIED FORMULATION 06/21/2014 PNEUMOCOCCAL, UNSPECIFIED FORMULATION 05/21/2014 Assessment 1. COPD (chronic obstructive pulmonary disease) (HCC) - Symptoms are significantly improved on Symbicort, which we will continue. 2. Snoring - She reports little snoring now that she is on Symbicort, and is no longer havi ng the nocturnal awakenings. She feels her sleep has improved significantly. I did raise the possibility that part of this was due to the sedating medications as opposed to any actual resolution in her sleep issues. 3. Insomnia - Improved, but on benzodiazepines, which are not a good chcf solution, an d could be masking a physical problem, or simply being used to treat a behavioral one. I did recommend that she work to get on a regular sleep schedule, which her son agreed with, star ting by getting up at a consistent time each day, using an alarm, which will then help her g o to bed at a consistent time each day over time. 4. PLMD (periodic limb movement disorder) - She describes what sounds like PLMD, and may be related to back issues as it has improved with muscle relaxants. I did recommend checking a ferritin and treating for iron deficiency if under 50. She had a recent colonoscopy to scre en for colon cancer. 5. Iron deficiency - We will exclude this based on symptoms noted above. Plan 1.Continue on Symbicort twice daily. 2.Change ProAir to as needed only. 3.Increase walking, starting at 10 minutes 3 times weekly. 4. Check ferritin level. 5. Stick to a consistent sleep schedule by setting a consistent wake time. Return to clinic in 4 months, or sooner with concerns. CC: KIAH Leary Portions of this report were transcribed using voice recognition software. Every effort wa s made to ensure accuracy; however, inadvertent computerized occupational health manager errors may be pre sent. documented in t his encounter Plan of Treatment Not on filedocumented as of this encounter Results Ferritin (02/13/2015 1:52 PM [...] | + + + + + | [address] | [address] | [place] | [phone] | | [facility] | | [id number] | | | - LABORATORY | | | | + + + + + documented in this encounter Visit Diagnoses + + | Diagnosis | + + | COPD (chronic obstructive pulmonary disease) (HCC) Chronic airway obstruction, not | | elsewhere classified | + + | Snoring Other dyspnea and respiratory abnormality | + + | Insomnia Insomnia, unspecified | + + | PLMD (periodic limb movement disorder) Periodic limb movement disorder | + + | Iron deficiency Other disorders of iron metabolism | + + documented in this encounter
--- OUTSIDE RECORDS SUMMARY | ~2020-02-24 | XMS | Encounter Summary ---
Demographics + + + | Address | [address] | | | [place] [address] | + + + | Home Phone | | + + + | Preferred Language | Unknown | + + + | Marital Status | | + + + | Samaritan Affiliation | [id number] | + + + | Race | Unknown | + + + | Ethnic Group | Unknown | + + + Author + + + | Author | [facility] | | | and [place] | + + + | Organization | [facility] | | | and [...] Team Providers + +------+ + | Care Screwdown Operator Name | Role | Phone | + +------+ + | Krista Alvarez | PCP | | | PA | | | + +------+ + Reason for Visit +--------+ + | Reason | Comments | +--------+ + | COPD | COPD (chronic obstructive pulmonary disease) (HCC) | +--------+ + Encounter Details +--------+---------+ + + + | Date | Type | Department | Care Team | Description | +--------+---------+ + + + | 06/12/ | Office | [facility] | [place], | Other emphysema | | 2015 | Visit | PULMONARY [address] | Lety Lynch MD | ([facility]) (Primary Dx); | | | | [place], | | Insomnia, | | | | [place] [address] | | unspecified | | | | [phone] | | insomnia; PLMD | | | | | | (periodic limb | | | | | | movement disorder); | | | | | | Tobacco abuse | +--------+---------+ + + + Social History [...] + + + | Blood Pressure | 114/58 | 06/12/2015 12:51 PM | | | | | PST | | + + + + + | Pulse | 70 | 06/12/2015 12:51 PM | | | [...] Weight | 59 kg (130 lb) | 06/12/2015 12:51 PM | | | | | PST | | + + + + + | Height | - | - | | + + + + + | Body Mass Index | 24.56 | 02/13/2015 12:58 PM | | | | | PDT | | + + + + + documented in this encounter Patient Instructions Patient Instructions Lety Gallego MD - 06/12/2015 1:40 PM PSTDoc Valerio Collier 30 m inute video [email or web address] Continue on Symbciort twice daily. I want you to increase your walking, and start with 10 minutes 5 times a week. documented in this encounter Progress Notes Lety Gallego MD - 06/12/2015 12:46 PM PSTFormatting of this note might be differe nt from the original. Pulmonary Follow Up HPI Martha Toth is a 74 y.o. female patient of KIAH Leary here today for follow up of COPD. At their last visit, we had checked a ferritin level and asked her to keep to a consistent sleep schedule. Since their last visit she feels like she has been doing pretty well. She go t sick at the end of her visit with her daughter, and she recovered without incident. She is currently on a regimen of Symbicort 2 puffs twice daily. She does feel like this me dication regimen is working for them. She has not needed to use her ProAir inhaler since bef ore she started the Symbicort. She returns today for routine follow up. Currently she is able to walk 1/2 mile at her own pace on level ground. She is not exercisi ng regularly. She visited her daughter and she walked for about 3 hours and she had a lot of pain and swelling after. She does not cough chronically, and does not produce mucous. She notes that she has been lopez ving some nasal congestion and some cough, which she attributes to running out of her Benadr yl that she usually takes. She has been evaluated for nocturnal oxygen and does not need to use it. She is sleeping okay. She notes that once in a while she is waking up and is not able to go back to sleep. Her son notes that a lot depends on how much she does during the day. If she overdoes herself too much, she does not sleep well. Past Medical History Past Medical History Diagnosis Date Depression DM type 2 (diabetes mellitus, type 2) ([facility]) Lung cancer ([facility]) 1996 s/p lobectomy on right, early stage Cataract COPD (chronic obstructive pulmonary disease) ([facility]) Hayfever [place] (myocardial infarction) ([facility]) 2010 x 3, [place] CKD (chronic kidney disease) CHF (congestive heart failure) ([facility]) Childhood asthma Hyperlipidemia GERD (gastroesophageal reflux disease) Ruptured lumbar disc 10/1979 Past Surgical History Past Surgical History Procedure Laterality Date Lumbar discectomy 1979 Lumbar fusion 1981 L2-3 grafted pelvic bone to disc [Other] Lung removal, partial 1996 right Puncture aspiration abscess 2013 Colonoscopy Social History: History Social History Marital Status: Spouse Name: N/A Number of Children: N/A Years of Education: N/A 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 Social History Main Topics Smoking status: Current Some Day Smoker -- 0.50 packs/day for 60 years Types: Cigarettes Last Attempt to Quit: 10/19/2014 Smokeless tobacco: Never Used Comment: has an occasional 1/2 cigarette Alcohol Use: 0.0 oz/week 0 Not specified per week Comment: rare, 1-3/year Drug Use: No Sexual Activity: None Other Topics Concern None Social History Narrative Lives: in [place] With: her son Grew up: [place], [place] Has previously lived in: [place], [place], [place], [place], [place] Exposure to toxic chemicals: no Exposure to asbestos: yes, school and home Exposure to tuberculosis: no Has had a PPD or Quantiferon before: yes, in school and in [place], both negative Has pets at home: 4 cats and 3 dogs Has ever owned birds: yes, 4-5 years ago, was told by her doctor to get rid of them as "th ey were too much for her lungs" Other animal exposures: no Hobbies: homemaking Allergies: Allergies Allergen Reactions Penicillins Hives Medications: Outpatient Encounter Prescriptions as of 06/12/2015 Medication Sig Dispense Refill albuterol (PROAIR HFA) 90 mcg/puff inhaler Inhale 2 puffs into the lungs every 6 hours as needed for Wheezing. ALPRAZolam (XANAX) 0.25 mg tablet Take 0.25 mg by mouth 3 times daily as needed for Anx iety. budesonide-formoterol (SYMBICORT) 160-4.5 mcg/puff inhaler Inhale 2 puffs into the lung s 2 times daily. 1 Inhaler 11 buPROPion (WELLBUTRIN SR) 150 mg 12 hr tablet Take 150 mg by mouth 2 times daily. Dextromethorphan HBr (BENYLIN ADULT FORMULA PO) Take by mouth 2 times daily. diphenhydrAMINE (BENADRYL) 25 mg tablet Take 25 mg by mouth 2 times daily. FLUoxetine (PROZAC) 20 mg capsule Take 20 mg by mouth Daily. [DISCONTINUED] fluticasone (FLOVENT HFA) 220 mcg/puff inhaler Inhale 2-4 puffs into the lungs 2 times daily. furosemide (LASIX) 40 mg tablet Take 40 mg by mouth Daily. [DISCONTINUED] FUROSEMIDE PO Take 20 mg by mouth Daily. HYDROcodone-acetaminophen (NORCO) 10-325 mg per tablet Take 1 tablet by mouth every 6 h ours as needed for Pain. metFORMIN (GLUCOPHAGE) 500 mg tablet Take 500 mg by mouth 2 times daily (with breakfast & dinner). [DISCONTINUED] METFORMIN HCL PO Take by mouth 2 times daily. methocarbamol (ROBAXIN) 750 mg tablet Take 750 mg by mouth 4 times daily. [DISCONTINUED] MONTELUKAST SODIUM PO Take 10 mg by mouth nightly. omeprazole (PRILOSEC) 20 mg capsule Take 20 mg by mouth every morning (before breakfast ). [DISCONTINUED] OMEPRAZOLE PO Take 20 mg by mouth Daily. simvastatin (ZOCOR) 20 mg tablet Take 20 mg by mouth nightly. triamcinolone (KENALOG) 0.1% cream Apply topically as needed. No facility-administered encounter medications on file as of 06/12/2015. Review of Systems: General: []Weight loss/gain (over 10 lbs) []Fever/chills/sweats []Night sweats EENT: []Hearing loss []Vision loss/change []Sinus congestion/nasal drainage []Nosebleeds [] Hoarseness Cardiac: []Chest pain []Palpitations/heart racing []Swelling of legs/ankles []Waking up at night s hort of breath []Difficulty sleeping flat Gastrointestinal: []Nausea/vomiting []Difficulty swallowing []Heartburn/acid reflux []Loss of appetite []Abd ominal pain Urologic: []Blood in urine []Frequent urination at night []Burning/painful urination []Difficulty wit h urination [x]Patient denies all of the abouve Objective BP 114/58 mmHg | Pulse 70 | Temp(Src) 36.8 C (98.3 F) (Temporal) | Resp 20 | Wt 58.968 kg (130 lb) | SpO2 96% RA General Appearance: Alert, cooperative, no distress, appears stated age Head: Normocephalic, without obvious abnormality, atraumatic Eyes: PERRL, conjunctiva clear, no scleral icterus, EOM's intact Ears: Normal TM's, external auditory canals, normal acuity Nose: Nares normal, septum midline, mucosa [...] nodes: Cervical and supraclavicular nodes normal Data: Ref. Range 02/13/2015 13:52 FERRITIN Latest Range: 11-<307 ng/mL 45 Immunization History Administered Date(s) Administered INFLUENZA, UNSPECIFIED FORMULATION 06/21/2014 PNEUMOCOCCAL, UNSPECIFIED FORMULATION 05/21/2014 Assessment 1. Other emphysema (HCC) -Doing well on Symbicort, which we will continue. I encouraged her to walk more often. 2. Insomnia, unspecified insomnia - Improved though she is taking Xanax nightly. Not having frequent nocturnal awakenings. 3. PLMD (periodic limb movement disorder) - Had a mildly low iron level and was started on iron, though she developed diarrhea and stopped this. 4. Tobacco abuse - Ongoing. We discussed other ways to modulate her stress than smoking. Plan 1. Continue Symbicort 160 mcg 2 puffs inhaled twice daily. 2. Increase walking, starting at 10 minutes 5 times weekly. 3.Continue ProAir and albuterol nebulizers as needed. 4. Smoking cessation encouraged. She was advised to call if new pulmonary symptoms were to develop. Return to clinic in 6 months, or sooner with concerns. CC: KIAH Leary Portions of this report were transcribed using voice recognition software. Every effort wa s made to ensure accuracy; however, inadvertent computerized investment associate errors may be pre sent. documented in t his encounter Plan of Treatment Not on filedocumented as of this encounter Visit Diagnoses + + | Diagnosis | + + | Other emphysema (HCC) - Primary Other emphysema | + + | Insomnia, unspecified insomnia | + + | PLMD (periodic limb movement disorder) Periodic limb movement disorder | + + | Tobacco abuse Tobacco use disorder | + + documented in this encounter
--- OUTSIDE RECORDS SUMMARY | ~2020-02-24 | XMS | Encounter Summary ---
Demographics + + + | Address | [address] [place] [address] Ln | | | [place] [address] | + + + | Home Phone [...] | | | | | [place] [address] | | + + + + + Care Team Providers + +------+ + | Care Associate Financial Representative Name | Role | Phone | [...] as of this encounter Progress Notes Interface, Retrimmer In - 06/29/2006 5:02 AM PSTCLINIC DATE: 11/05/1999 [facility] SUBJECTIVE: Martha is a 59-year-old female who presents with a three-month history of right epicondylitis lateralis. She has been using anti-inflammatories as well as rest, has received a counter fulcrum brace and also undergone one injection with steroids, all of which have failed to help with her problem. 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 She is interested in the possibility of [...] followup in one month. Eladio Lynch M.D. [facility] / [id number] / [id number] / [id number] / [id number] signed by Interface, Retrimmer In at 06/29/2006 5:02 AM PSTdocume nted in this encounter Plan of Treatment Not on filedocumented as of this encounter Visit Diagnoses Not on filedocumented in this encounter"
--- OUTSIDE RECORDS SUMMARY | ~2020-02-24 | XMS | Encounter Summary ---
Demographics + + + | Address | [address] [place] [address] Ln | | | [place] [address] | + + + | Home Phone [...] + + + | Author | [facility] | + + + | Organization | [facility] | + + + | Address | Unknown | + + + | Phone | Unavailable | + + + Support + + + + + | Name | Relationship | Address | Phone | + + + + + | Jeni Shirley | ECON | [address] | | | | | [place] [address] | | + + + + + Care Team Providers + +------+ + | Care Guillotine Operator Name | Role | Phone | + +------+ + | Eladio Lynch MD | PCP | | + +------+ + Encounter Details +--------+ + + + + | Date | Type | Department | Care Team | Description | +--------+ + + + + | 07/23/ | Office | [facility] | Note, [...] as of this encounter Progress Notes Interface, Novelty Worker In - 04/29/2006 3:08 AM PDTCLINIC DATE: 07/23/2001 [facility] SUBJECTIVE: A 60-year-old female who presents for diabetic management. She currently is on metformin 850 mg t.i.d. with glipizide 20 mg b.i.d. as well as aspirin, an PORTIA inhibitor, and a statin. She had her last hemoglobin A1c greater than 11, admits to some variation in medication frequency due to the cost and affordability of medication, but in general states that her sugars are under 200. She has no history of remarkable end-organ damage at this point. PAST MEDICAL HISTORY: Significant for moderate back pain due to degenerative changes including right leg radiative symptomatology. MEDICATIONS: Currently using 3 tablets of Vicodin daily as well as 3 tablets of Flexeril. REVIEW OF SYSTEMS: Negative for any increase in headaches, positive for chest pressure, positive for shortness of breath on recumbency, negative for nausea and vomiting, negative for abdominal pain and dysuria, positive for increased frequency, and negative for change in bowel movement or additional syncopal symptoms. OBJECTIVE: GENERAL: She is in no apparent distress. She is alert and oriented x 4. VITAL SIGNS: Blood pressure 128/86, pulse 90, respirations 18, and weight 152 pounds. HEENT: Her eyes have white sclerae. Moist oral mucosa. CARDIAC: Regular rate and rhythm. LUNGS: Clear to auscultation. EXTREMITIES: Without edema. ASSESSMENT AND PLAN 1. Periodic shortness of breath and chest pressure upon recumbency at night. Plan is to order a stress echocardiogram concerning this. 2. Diabetes mellitus. We will add Avandia 4 mg daily to her current regimen and refer her for diabetic education once again in hopes of lowering her hemoglobin A1c without the need for insulin therapy. 3. Chronic pain. We went over her last scans at length and decided against any surgical referral. At this time, she has historically had 2 back surgeries. Eladio Lynch M.D. [facility] / [id number] / [id number] / [id number] / [id number] Tdocumented in this encounter Plan of Treatment Not on filedocumented as of this encounter Visit Diagnoses Not on filedocumented in this encounter"
--- OUTSIDE RECORDS SUMMARY | ~2020-02-24 | XMS | Encounter Summary ---
Demographics + + + | Address | [address] [place] [address] Ln | | | [place] [address] | + + + | Home Phone [...] | | | | | [place] [address] | | + + + + + Care Team Providers + +------+ + | Care Electric Cutter Operator Name | Role | Phone | [...] Request | | 2013 | | at [facility] | MD [address] | | | | | [address] | [place], [place] | | | | | [facility] | [address] | | | | | and Healing, | [phone] | | | | | Building | | | | | | Floor [facility] [place] | | | | | | [address] | | | | | | [phone] | | | +--------+--------+ + + + [...]
--- OUTSIDE RECORDS SUMMARY | ~2020-02-24 | XMS | Encounter Summary ---
Demographics + + + | Address | [address] [place] [address] Ln | | | [place] [address] | + + + | Home Phone [...] | | | | | [place] [address] | | + + + + + Care Team Providers + +------+ + | Care Pairer Odds Name | Role | Phone | + +------+ + | Unknown | PCP | Unavailable | + +------+ + Encounter Details +--------+ + + + + | Date | Type | Department | Care Team | Description | +--------+ + + + + | 03/20/ | Results | Registration [id number] | | | | 1998 | Only | [address] | | | | | | [address] Mailcode: RPB07 | | | | | | [place], [place] | | | | | | [address] | | | | | | [phone] | | | +--------+ + + + [...] | + +--------+ + + + | CULTURE, WOUND BACTI | Routin | 03/20/1998 | | Results for this | | & GS | e | 5:53 PM | | procedure are in the | | | | PDT | | results section. | + +--------+ + + + documented in this encounter Results CULTURE, WOUND BACTI & GS (03/20/1998 5:53 PM PDT) + + + + + + | Component | Value | Ref Range | Performed | Pathologist | | | | | At | Signature | + + + + + + | CULTURE | Cult & Susc Exud | | | | | RESULT | ""Gram Smear:OrgA | | | | | | NO ORGANISMS SEEN | | | | | | WBC | | | | | | 1+ | | | | | | RBC 4+Diagnosis | | | | | | NOT | | | | | | INDICATEDTest Ordered | | | | | | EXUDATE | | | | | | CULTUREOrdering Loc | | | | | | ERSpec Set Up Date | | | | | | 03/20Spec Set Up Time | | | | | | 2109Specimen | | | | | | Type SWAB | | | | | | BUTTOCK ABSCESSReport | | | | | | Status | | | | | | FINALCulture Result | | | | | | GROWTH, SEE | | | | | | ISOLATE(S)Date Of Final | | | | | | Re [id number] | | | | | | 01ISOLATE [id number] | | | | | | COLONY(S) | | | | | | STAPHYLOCOCCUSISOLATE 02 | | | | | | Prelim Isolate | | | | | | "" Final Isolate | | | | | | 1+ ANAEROBIC GRAM | | | | | | POS COCCI | | | | + + + + + + + + | Specimen | + + | | + + + + + + + | Performing | Address | City/State/Zipcode | Phone Number | | Organization | | | | + + + + + | [facility] | [address] | [place] [address] | | | PATHOLOGY | [address] | | | + + + + + documented in this encounter Visit Diagnoses Not on filedocumented in this encounter
--- OUTSIDE RECORDS SUMMARY | ~2020-02-24 | XMS | Encounter Summary ---
Demographics + + + | Address | [address] [place] [address] Ln | | | [place] [address] | + + + | Home Phone [...] | | | | | [place] [address] | | + + + + + Care Team Providers + +------+ + | Care Flooring Professional Name | Role | Phone | + +------+ + | Eladio Lynch MD | PCP | | + +------+ + Encounter Details +--------+ + + + + | Date | Type | Department | Care Team | Description | +--------+ + + + + | 06/08/ | Office | [facility] | Note, [...] as of this encounter Progress Notes Interface, Sidewalk Inspector In - 05/08/2006 2:23 AM PDTCLINIC DATE: 06/08/2001 [facility] PROBLEM: Back pain, chronic, 724.2. SUBJECTIVE: Martha is here for a followup of her chronic back pain. She has had at least 2 surgeries in the past including one in 1979 and one in 1983 for treatment of her back pain. She thinks the last one involved the fusion. She was told that she had some scar tissue in the area that is attributable to postsurgical change. In addition, she has been seen by at least 3 pain clinics that are at different locations here in town. They have given her some help, at least temporarily (while she was going to these clinics). She has managed with Vicodin taking up to 3 per day. She needs refill of the same. She is also taking her diabetic medication including metformin and glipizide. She also takes asthma medications including albuterol, Atrovent, and Flovent. Other medications include Premarin, progesterone, and Claritin. She also thinks that she may be on some blood pressure medicine, but she is not sure what the name of it is. She says that she has had increasing difficulty with her bowel movements. Sometimes she feels that she cannot get to the bathroom on time. She, at other times has noted some soiling. This was not a problem for her before 4 months ago. She denies any problems with constipation with her medications. She did note that she had looser stool one time when she was out of her medicines, however. She has had a lobectomy of her right lung in June 1990. She did not require any radiation or chemotherapy. She normally sees Dr. Lynch but was unable to make an appointment with him today. She is interested in further evaluation of the problems that she is having. OBJECTIVE: GENERAL: Martha is alert, cooperative, and in no acute distress. VITAL SIGNS: Blood pressure is 144/88, pulse is 100, respirations 18, weight is 154 pounds, and temperature is 98.3. HEENT: Unremarkable. NECK: Supple. No adenopathy. CHEST: Clear. HEART: Regular without murmurs. ABDOMEN: Soft. EXTREMITIES: Straight leg raising is positive with 80 degrees on the right, negative on the left. Deep tendon reflexes are equal and intact bilaterally. Strength is symmetric bilaterally. Sensation is intact bilaterally. ASSESSMENT: Martha has chronic back pain. She has obvious degenerative changes and has had documented disk disease with fusion approximately 17 years ago. At the same time, she has had some change in bowel continence by her history, and I think that it would be appropriate to evaluate her back further. PLAN: I have discussed all the above with Martha as well as various options, alternatives, and risks. She is open to having MRI and has completed a referral form to have this done. I emphasized the need for a followup at anytime if she has persistence or worsening of her symptoms; otherwise, we will make an appointment to see Dr. Lynch for review of the results of the MRI in the next 4 weeks. I have given her Vicodin #100 to use as directed and Flexeril #60 to use up to 1 p.o. b.i.d. or 1 p.o. t.i.d. p.r.n. The total duration of visit was in excess of 40 minutes with over half the time spent with counseling. Balta Gavin M.D. WT / [id number] / [id number] / [id number] / Tdocumented in this encounter Plan of Treatment Not on filedocumented as of this encounter Visit Diagnoses Not on filedocumented in this encounter"
--- OUTSIDE RECORDS SUMMARY | ~2020-02-24 | XMS | Encounter Summary ---
Demographics + + + | Address | [address] [place] [address] Ln | | | [place] [address] | + + + | Home Phone [...] | | | | | [place] [address] | | + + + + + Care Team Providers + +------+ + | Care Universal Grinder Set Up Operator Name | Role | Phone | [...] | | 2006 | TRANSCRIPTI | at [facility] | [address] | | | | ON | [address] | [place], [place] | | | | | [place] [facility] | [address] | | | | | and Healing, | [phone] | | | | | | | | | | | Floor [place], [place] | | | | | | [address] | | | | | | [phone] | | | +--------+ + + + [...]
--- OUTSIDE RECORDS SUMMARY | ~2020-02-24 | XMS | Encounter Summary ---
Demographics + + + | Address | [address] [place] [address] Ln | | | [place] [address] | + + + | Home Phone [...] | | | | | [place] [address] | | + + + + + Care Team Providers + +------+ + | Care Senior Business Process Analyst Name | Role | Phone | [...] as of this encounter Progress Notes Interface, Cartographic Engineer In - 03/06/2005 12:25 AM PDT [id number] TARI CALDWELL Clinic Date: 11/11/2004 [facility] Subjective: Ms. Toth is here today for a refill of her controlled medications for chronic back pain and osteoporosis, multiple sites that are arthritic. She has been on a medication care agreement through [facility] for some time, for Vicodin 1 p.o. q.i.d. with Soma 1 p.o. t.i.d. These are written for today with 1 refill each, and we will have her seen in 2 months' time. Health Maintenance: She has a scheduled mammogram. At the next visit, we will discuss bone densitometry which she has had as well as her ttv-reteasn-qnchfagdh diabetes mellitus which when last checked in March 2004, she had a hemoglobin A1c of 6.4. Eladio Lynch M.D. [facility] / [id number] / [id number] / [id number] / [id number] Electronically signed by Eladio Lynch 11-22-2004 10:07:27 AM documented i n this encounter Plan of Treatment Not on filedocumented as of this encounter Visit Diagnoses Not on filedocumented in this encounter"
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
--- OUTSIDE RECORDS SUMMARY | ~2020-02-24 | XMS | Encounter Summary ---
Demographics + + + | Address | [address] [place] [address] Ln | | | [place] [address] | + + + | Home Phone [...] | | | | | [place] [address] | | + + + + + Care Team Providers + +------+ + | Care Wine Master Name | Role | Phone | + +------+ + PCP | Unavailable | + +------+ + Encounter Details +--------+ + + + + | Date | Type | Department | Care Team | Description | +--------+ + + + + | 10/07/ | Results | [facility] | Eladio Lynch, | | | 1999 | Only | Medicine at [facility] | [address] | | | | | Uri[place] [address] | [place], [place] | | | | | [address] | [address] | | | | | Mailcode: MINDY Albarran | [phone] | | | | | [address] | | | | | | [place], [place] | | | | | | [address] | | | | | | [phone] | | | +--------+ + + + [...] + + | TSH | Routin | 11/29/1999 | | Results for this | | | e | 2:40 PM | | procedure are in the | | | | PDT | | results section. | + +--------+ + + + | ELBOW, 2 VIEWS | Routin | 10/08/1999 | | Results for this | | | e | 12:25 PM | | procedure are in the | | | | PST | | results section. | + +--------+ + + + documented in this encounter Results TSH-THYROID STIM HORMONE (11/29/1999 2:40 PM PDT) + +-------+ + + + | Component | Value | Ref Range | Performed | Pathologist | | | | | At | Signature | + +-------+ + + + | TSH | 0.65 | 0.23 - 4.00 | | | | | | uIU/ml | | | + +-------+ + + + + + | Specimen | + + | | + + + + + + + | Performing | Address | City/State/Zipcode | Phone Number | | Organization | | | | + + + + + | [facility] | [address] | [place] [address] | | | LABORATORY | | | | + + + + + ELBOW, 2 VIEWS (10/08/1999 12:25 PM PST) + + + + + + | Component | Value | Ref Range | Performed | Pathologist | | | | | At | Signature | + + + + + + | ELBOW, 2 | Radiologist 1: FABIOLA, | | | | | VIEWS | VY Holley, | | | | | | M.D.-Radiologist 2: | | | | | | VY HICKS, | | | | | | M.D.RIGHT ELBOW -- AP | | | | | | AND LATERAL VIEWS: | | | | | | 10/08/99. Dictated | | | | | | 10/09/99 COMPARISON: | | | | | | None. FINDINGS: The | | | | | | bones of the right elbow | | | | | | are intact without | | | | | | obviousfracture or focal | | | | | | bony destruction. The | | | | | | joint spaces are | | | | | | maintained.A small | | | | | | effusion is present. | | | | | | IMPRESSION: Small | | | | | | effusion without | | | | | | fracture identified. | | | | | | If clinical | | | | | | symptomspersist, | | | | | | recommend a repeat | | | | | | radiograph. END OF | | | | | | IMPRESSION: | | | | + + + + + + + + | Specimen | + + | | + + + +---------+ + + | Performing | Address | City/State/Zipcode | Phone Number | | Organization | | | | + +---------+ + + | [facility] DEPARTMENT OF | | | | | RADIOLOGY | | | | + +---------+ + + documented in this encounter Visit Diagnoses Not on filedocumented in this encounter"
--- OUTSIDE RECORDS SUMMARY | ~2020-02-24 | XMS | Encounter Summary ---
Demographics + + + | Address | [id number] [place] [address] Ln | | | [place] [address] | + + + | Home Phone [...] | | | | | [place] [address] | | + + + + + Care Team Providers + +------+ + | Care Landscape Technician Name | Role | Phone | + +------+ + | Eladio Lynch MD | PCP | | + +------+ + Encounter Details +--------+ + + + + | Date | Type | Department | Care Team | Description | +--------+ + + + + | 05/27/ | Office | [facility] | Note, [...] as of this encounter Progress Notes Interface, Compressed Gas Plant Worker In - 08/16/2006 3:07 AM PSTCLINIC DATE: 05/27/1998 [facility] SUBJECTIVE: Ms. Toth presents as a 57-year-old female moving back into the [facility] after a brief stay in [place] where she was diagnosed with squamous cell carcinoma following ten pounds of weight loss and unexplained nausea with a fairly significant work-up. This has been biopsied and studied and not felt to be metastatic at this time. She currently has a copy of her records in person as well as in [facility] chart at [facility][1] and referrals both to Oncology and Radiation Oncology for an evaluation and treatment plan. Otherwise she seems to be in a good mood, believes that her prognosis is a good one, and is interested in beginning therapy. OBJECTIVE: She is in no apparent distress. Her vital signs are stable. Her lungs are clear to auscultation and otherwise unexamined. ASSESSMENT: 1. Squamous cell carcinoma. She has discontinued smoking once again, this being day one. She has appropriate referrals and documentation concerning her cancer, however, I believe the hard copies, radiographically, CT and otherwise, are still in [place]. We will continue to follow her and hope to coordinate her care and assume responsibility for control of symptoms that should arise either from the disease or the treatment. 2. Pfm-yyvkxye-rlwcpkxmh diabetes mellitus. PLAN: To refill her Glucophage 500 mg t.i.d. (#100) with six refills. 3. Hypertriglyceridemia and hypercholesterolemia, mixed. PLAN: To continue on Lipitor 20 mg q.d. We will write her for 30 and six refills. 4. Chronic pain syndrome. PLAN: To continue with her previous narcotic contract using Vicodin no greater than 1 p.o. q.i.d. We will write her for 100 with one refill. Additionally, Soma 350 mg 1 p.o. t.i.d., (#100) with one refill. 5. Nausea. Having evaluated and diagnosed the cause of her nausea, she never did receive medication to control it. We will make efforts with 10 mg of Compazine (#30) 1 p.o. q.8h. 6. Lower extremity edema. Continue with Lasix 40 mg 1 p.o. q a.m. (#60) with three refills associated with 10 mEq tablets of potassium 1 p.o. q.d. We will see her back in two weeks with the design on utilizing that time to coordinate her care and evaluate what needs to be done as part of her routine diabetic care as well. Eladio Lynch M.D. Knife Edger, Family Medicine d ocumented in this encounter Plan of Treatment Not on filedocumented as of this encounter Visit Diagnoses Not on filedocumented in this encounter"
--- OUTSIDE RECORDS SUMMARY | ~2020-02-24 | XMS | Encounter Summary ---
Demographics + + + | Address | [address] [place] [address] Ln | | | [place] [address] | + + + | Home Phone [...] + + + | Author | [facility] | + + + | Organization | [facility] | + + + | Address | Unknown | + + + | Phone | Unavailable | + + + Support + + + + + | Name | Relationship | Address | Phone | + + + + + | Jeni Shirley | ECON | [facility] | | | | | [place] [address] | | + + + + + Care Team Providers + +------+ + | Care Dairy Cattle Farmer Name | Role | Phone | + [...] Only | [address] | [phone] | | | | | [place] | | | | | | [address] | | | | | | [phone] | | | +--------+ + + + [...] | + + + + + | [facility] | [address] | [place] [address] | | | PATHOLOGY | [address] [...] | + + + + + | [facility] | [address] | [place] [address] | | | PATHOLOGY | [address] | | | + + + + + documented in this encounter Visit Diagnoses Not on filedocumented in this encounter"
--- OUTSIDE RECORDS SUMMARY | ~2020-02-24 | XMS | Encounter Summary ---
Demographics + + + | Address | [address] [place] [address] Ln | | | [place] [address] | + + + | Home Phone [...] | | | | | [place] [address] | | + + + + + Care Team Providers + +------+ + | Care Perinatal Tech Name | Role | Phone | [...] Request | | 2007 | | at [facility] | MD [address] | | | | | [address] | [place], [place] | | | | | [facility] | [address] | | | | | and Healing, | [phone] | | | | | Building | | | | | | Floor [facility] [place] | | | | | | [address] | | | | | | [phone] | | | +--------+--------+ + + + [...]
--- OUTSIDE RECORDS SUMMARY | ~2020-02-24 | XMS | Encounter Summary ---
Demographics + + + | Address | [address] [place] [address] Ln | | | [place] [address] | + + + | Home Phone [...] | | | | | [place] [address] | | + + + + + Care Team Providers + +------+ + | Care Final Cleaner Name | Role | Phone | [...] Request | | 2013 | | at [facility] | MD [address] | | | | | [address] | [place], [place] | | | | | [facility] | [address] | | | | | and Healing, | [phone] | | | | | [facility] | | | | | | Floor [facility] [place] | | | | | | [address] | | | | | | [phone] | | | +--------+ + + + [...]
--- OUTSIDE RECORDS SUMMARY | ~2020-02-24 | XMS | Encounter Summary ---
Demographics + + + | Address | [address] | | | [place] [address] | + + + | Home Phone | | + + + | Preferred Language | Unknown | + + + | Marital Status | | + + + | Congregation Affiliation | 1041 | + + + | Race | Unknown | + + + | Ethnic Group | Unknown | + + + Author + + + | Author | [facility] | | | and [place] | + + + | Organization | [facility] | | | and [place] [...] Team Providers + +------+ + | Care Buffing Machine Tender Name | Role | Phone [...] | | | [address] | [place] [address] | | | | | [place] [address] | | | | | | [phone] | | | +--------+ + + + [...] + + + | XR LUMBAR SPINE 4 + | Routin | 01/08/2018 | | Results for this | | VW | e | 2:20 PM | | procedure are in the | | | | PDT | | results section. | + +--------+ + + + documented in this encounter Results XR Lumbar Spine 4 + Vw (01/08/2018 2:20 PM PDT) + + | Specimen | [...]
--- OUTSIDE RECORDS SUMMARY | ~2020-02-24 | XMS | Encounter Summary ---
Demographics + + + | Address | [address] [place] [address] Ln | | | [place] [address] | + + + | Home Phone [...] | | | | | [place] [address] | | + + + + + Care Team Providers + +------+ + | Care Fabric Inspector Name | Role | Phone | [...] as of this encounter Progress Notes Interface, Brine Supervisor In - 03/06/2005 8:55 AM PDT [id number] TRAI JAVI [facility] Date: 07/12/2004 [facility] Chief Complaint: Ms. Toth is here with [...] months. Eladio Lynch M.D. ROSIE / KIMBERLEY [id number] / [id number] / [id number] / documented i n this encounter Plan of Treatment Not on filedocumented as of this encounter Visit Diagnoses Not on filedocumented in this encounter"
--- OUTSIDE RECORDS SUMMARY | ~2020-02-24 | XMS | Encounter Summary ---
Demographics + + + | Address | [address] [place] [address] Ln | | | [place] [address] | + + + | Home Phone | | + + + | Preferred Language | Unknown | + + + | Marital Status | | + + + | Synagogue Affiliation | LINDSAY | + + + [...] UA | | | | | [place] [address] | | + + + + + Care Team Providers + +------+ + | Care Director Orange Name | Role | Phone | + [...] as of this encounter Progress Notes Interface, Academic Specialist In - 07/23/2006 3:05 AM PSTCLINIC DATE: 02/22/[address] [facility] SUBJECTIVE: Martha is here today for routine followup of her sfs-xpwezrx-zbbejckzd adult-onset diabetes mellitus as well as a [...] management and the potential need for insulin. Eladio Lynch M.D. Traffic Rate Computer, Family Medicine EZEQUIEL/aure Tdocumented in this encounter Plan of Treatment Not on filedocumented as of this encounter Visit Diagnoses Not on filedocumented in this encounter"
--- OUTSIDE RECORDS SUMMARY | ~2020-02-24 | XMS | Encounter Summary ---
Demographics + + + | Address | [address] [place] [address] Ln | | | [place] [address] | + + + | Home Phone [...] | | | | | [place] [address] | | + + + + + Care Team Providers + +------+ + | Care Airborne Operations Manager Name | Role | Phone [...] Request | | 2013 | | at [facility] | MD [address] | | | | | [address] | [place], [place] | | | | | [facility] | [address] | | | | | and Healing, | [phone] | | | | | [facility] | | | | | | Floor [facility] [place] | | | | | | [address] | | | | | | [phone] | | | +--------+ + + + [...]
--- OUTSIDE RECORDS SUMMARY | ~2020-02-24 | XMS | Encounter Summary ---
Demographics + + + | Address | [address] [place] [address] Ln | | | [place] [address] | + + + | Home Phone [...] + + + | Author | [facility] | + + + | Organization | [facility] | + + + | Address | Unknown | + + + | Phone | Unavailable | + + + Support + + + + + | Name | Relationship | Address | Phone | + + + + + | Jeni Shirley | ECON | [facility] | | | | | [place] [address] | | + + + + + Care Team Providers + +------+ + | Care Senior Network Security Architect Name | Role | Phone | [...] | | 2007 | | at [facility] | MD [address] | | | | | [address] | | | | | | [facility] | [address] | | | | | and Healing, | [phone] | | | | | Building | | | | | | Floor [facility] [place] | | | | | | [address] | | | | | | [phone] | | | +--------+--------+ + + + [...]
--- OUTSIDE RECORDS SUMMARY | ~2020-02-24 | XMS | Encounter Summary ---
Demographics + + + | Address | [address] [place] [address] Ln | | | [place] [address] | + + + | Home Phone [...] | | | | | [place] [address] | | + + + + + Care Team Providers + +------+ + | Care Lap Layer Name | Role | Phone | + +------+ + | Eladio Lynch MD | PCP | | + +------+ + Encounter Details +--------+ + + + + | Date | Type | Department | Care Team | Description | +--------+ + + + + | 09/21/ | ED Progress | [facility] | [...]
--- OUTSIDE RECORDS SUMMARY | ~2020-02-24 | XMS | Encounter Summary ---
Demographics + + + | Address | [address] [place] [address] Ln | | | [place] [address] | + + + | Home Phone [...] | | | | | [place] [address] | | + + + + + Care Team Providers + +------+ + | Care Steam And Gas Turbine Assembler Name | Role | Phone | + +------+ + | Eladio Lynch MD | PCP | | + +------+ + Reason for Referral Consultation (Routine) +--------+--------+ + + + + | Status | Reason | Specialty | Diagnoses / | Referred By | Referred To | | | | | Procedures | Contact | Contact | +--------+--------+ + + + + | Closed | | Obstetrics & | Diagnoses | Alannah Saab | [facility] | | | | Gynecology | | MD [address] | Generalists | | | | | Post-menopau | [address] | [address] | | | | | thu bleeding | [facility] | [place] | | | | | Procedures | [place] | [place] | | | | | CONSULT TO | [address] | [address] | | | | | [facility] - | Phone: | floor | | | | | [facility] | [phone] | [place], [place] | | | | | WOMEN'S | Fax: | [address] | | | | | HEALTH | [phone] | Phone: | | | | | | | [phone] | | | | | | | Fax: | | | | | | | [phone] | +--------+--------+ + + + + Reason for Visit + + + | Reason | Comments | + + + | Vaginal bleeding | ongoing x 2 months. Had yesterday had some heavy bleeding. C/o of | | | mild pelvic pain. | + + + Encounter Details +--------+---------+ + + + | Date | Type | Department | Care Team | Description | +--------+---------+ + + + | 08/16/ | Office | [facility] | Alannah Saab MD | Post-menopausal | | 2013 | Visit | at [facility] | [address] | bleeding (Primary | | | | [address] | [place], [place] | Dx) | | | | [facility] | [address] | | | | | and Healing, | [phone] | | | | | [facility] | | | | | | Floor [place], [place] | | | | | | [address] | | | | | | [phone] | | | +--------+---------+ + + + [...] + documented in this encounter Progress Notes Alannah Saab MD - 08/16/2013 3:00 PM PSTFormatting of this note might be different from t he original. Chief Complaint Patient presents with Vaginal bleeding ongoing x 2 months. Had yesterday had some heavy bleeding. C/o of mild pelvic pain. SUBJECTIVE: Martha Toth is a 72 y.o. female here today to discuss the above concerns. She is accompanied by her granddaughter. Martha reveals she had spotting from the vagina starting in 1997 and has had this intermitte ntly since that time. She attributed it to new sexual partner at the onset- she had just go tten remarried. She states she experienced menopause at age 47 and she had no spotting since age 57, in 199 8. At that time her bleeding was not clearly associated with intercourse but she cannot rec all details. She does describe the bleeding at that time as occuring every few months and l asting a day. She could use a pantyliner and saw the blood on the toilet tissue. Now feeling PMS like and cramping sxs across lower abdomen for the last 2 months.. Bleeding is now occurring every few months and lasting a full day and requiring her to use a depends as she doesn't have maxipads. Stating the bleeding is now like a light period rather than spotting. She told her family of this and her granddaughter made her an appt and brought her today. Martha is not sexually active x 5 years. She is . She had never been to a doctor about this - last INDIRECT SALES EXEC exam was around age 67. No hx of abnor mal PAPs. Never sees blood in stool or urine. Sees blood while wiping but denies pain. Clearly states that this is coming from the vagina. No hx of HRT nor anticoagulants other than ASA. FHX + for ovarian cancer in maternal aunt. Her mother also had cancer, type unknown. She herself has had lung cancer with partial resection. Further details not revealed by pt . 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 History Social History Marital Status: Spouse Name: N/A Number of Children: N/A Years of Education: N/A Occupational History Not on file. Social History Main Topics Smoking status: Current Every Day Smoker -- 10 years Smokeless tobacco: Not on file Alcohol Use: Not on file Drug Use: Not on file Sexually Active: Not on file Other Topics Concern Not on file Social History Narrative No narrative on file Allergies Allergen Reactions Clarification Needed MILK,BEES, PCN,BLOOD Penicillins Hives Current outpatient prescriptions:Albuterol (Refill) 90 mcg/Actuation Inhalation Aerosol, HF A Inhaler. Inhale 1 puff by inhalation route every 4-6 hours as needed, Disp: 1, Rfl: 12 ALPRAZolam 0.25 mg oral tablet, Take 1 tablet by mouth three times daily. Indications: ANXI ETY, Disp: 20 tablet, Rfl: 0 ASPIRIN 325 MG ORAL TAB, None Entered, Disp: , Rfl: beclomethasone 80 mcg/actuation inhalation Aerosol (Aero), Inhale 3 puffs three times daily ., Disp: 8.7 g, Rfl: 12 Blood Sugar Diagnostic (ONE TOUCH ULTRA TEST) In Vitro Strip, use as directed, Disp: 100, R fl: 3 busPIRone 10 mg oral tablet, Take 1 tablet by mouth three times daily., Disp: , Rfl: FLUoxetine 20 mg oral capsule, Take 1 capsule by mouth once daily., Disp: , Rfl: HYDROcodone-acetaminophen (NORCO) 10-325 mg oral tablet, Take 1 tablet by mouth every six h ours as needed. Indications: Pain, Disp: 120 tablet, Rfl: 1 insulin glargine (LANTUS) 100 unit/mL subcutaneous solution, Inject 20 Units under the skin (SUBC) once daily at bedtime., Disp: 10 mL, Rfl: lisinopril 10 mg oral tablet, Take 1 tablet by mouth., Disp: 90 tablet, Rfl: 3 methocarbamol 750 mg oral tablet, Take 2 tablets by mouth four times daily., Disp: 120 tabl et, Rfl: 0 MISCELLANEOUS MEDICAL SUPPLY (RX DURABLE MEDICAL EQUIPMENT MA), Home O2., Disp: 1 each, Rfl : 0 montelukast (SINGULAIR) 10 mg oral tablet, Take 1 tablet by mouth once daily in the evening ., Disp: 30 tablet, Rfl: 12 omeprazole 20 mg oral capsule,delayed release(DR/EC), Take 1 capsule by mouth once daily., Disp: , Rfl: Current Medications: reviewed & updated in [facility] OBJECTIVE: BP 110/60 | Pulse 84 | Temp (Src) 36.7 C (98 F) (Oral) | Wt 64.411 kg (142 lb) | BMI 26.84 kg/(m^2) Gen: Pleasant, alert, no distress HEENT: PERRL, sclera anic, conjunctiva non-injected. OP clear with MMM. TM's clear b/l. Neck: Supple, no adenopathy; thyroid midline without enlargement or nodules. CV: RRR no mrg Lungs: CTAB with good air movement b/l. Abd: Soft, NT/ND, NABS. Fullness noted over lower abdomen. No guard/rebound tenderness. Ext: WWP, no c/c/e Neuro: Alert and oriented with normal speech and language function. Gait is normal. Skin: No rash or jaundice Psych: mood and affect stable. ASSESSMENT/PLAN: 72 yo female: 1 Post menopausal bleeding x 15 years, worsening x 2 months with cramping, PMS like sxs and heavier bleeding. Discussed options with pt. EMB and Transvaginal US are indicated in workup. However I fee l that the length of these sxs as well as the recent changes, including associated sxs, woul d indicate diagnostic tests that are beyond my scope of practice. Notably a diagnostic hyst eroscopy may be more beneficial of specimen obtainment vs an EMB in a 72 yo lady. She and h er granddaughter are agreeable to expediting care by referral to [employer] for evaluation and pedro luis tment deployment. Referral made today. documented in this encou nter Plan of Treatment Not on filedocumented as of this encounter Visit Diagnoses + + | Diagnosis | + + | Post-menopausal bleeding - Primary Postmenopausal bleeding | + + documented in this encounter"
--- OUTSIDE RECORDS SUMMARY | ~2020-02-24 | XMS | Encounter Summary ---
Demographics + + + | Address | [address] [place] [address] Ln | | | [place] [address] | + + + | Home Phone [...] | | | | | [place] [address] | | + + + + + Care Team Providers + +------+ + | Care Freight Elevator Erector Name | Role | Phone | + [...] Request | | 2007 | | at [facility] | MD [address] | | | | | [address] | [place], [place] | | | | | [facility] | [address] | | | | | and Healing, | [phone] | | | | | Building | | | | | | Floor [facility] [place] | | | | | | [address] | | | | | | [phone] | | | +--------+--------+ + + + [...]
--- OUTSIDE RECORDS SUMMARY | ~2020-02-24 | XMS | Encounter Summary ---
Demographics + + + | Address | [address] [place] [address] Ln | | | [place] [address] | + + + | Home Phone [...] | | | | | [place] [address] | | + + + + + Care Team Providers + +------+ + | Care Apple Turner Name | Role | Phone | + [...] + + | 10/12/ | Office | [facility] Primary [facility] | Eladio Lynch, | WIL w/o Complication | | 2006 | Visit | at [facility] | MD [address] | Type II; Cervical | | | | [address] | [facility] [place] | Radiculitis; | | | | [facility] | [address] | Unspecified Backache | | | | and Healing, | [phone] | | | | | Building | | | | | | Floor [place], [place] | | | | | | [address] | | | | | | [phone] | | | +--------+---------+ + + + [...] [facility] and Dr. Lynch. SHE REALIZES HER [...] current medications per medication care agreement @ [facility] as above. documented in this encoun ter [...]
--- OUTSIDE RECORDS SUMMARY | ~2020-02-24 | XMS | Encounter Summary ---
Demographics + + + | Address | [address] [place] [address] Ln | | | [place] [address] | + + + | Home Phone [...] | | | | | [place] [address] | | + + + + + Care Team Providers + +------+ + | Care Commodities Requirements Analyst Name | Role | Phone | [...] as of this encounter Progress Notes Rafa, Furniture Mechanic In - 08/13/2006 5:12 AM PSTCLINIC DATE: 06/16/1998 CLINIC NOTE - [facility] SUBJECTIVE: Martha Toth is here after being [...] during her hospital stay. Eladio Lynch M.D. Twister Tender, [facility] Medicine ROSIE:ankit d ocumented in this encounter Plan of Treatment Not on filedocumented as of this encounter Visit Diagnoses Not on filedocumented in this encounter"
--- OUTSIDE RECORDS SUMMARY | ~2020-02-24 | XMS | Encounter Summary ---
Demographics + + + | Address | [address] [place] [address] Ln | | | [place] [address] | + + + | Home Phone [...] | | | | | [place] [address] | | + + + + + Care Team Providers + +------+ + | Care Bean Sorter Name | Role | Phone | + +------+ + | Eladio Lynch MD | PCP | | + +------+ + Reason for Visit + + + | Reason | Comments | + + + | Wrist pain | | + + + Encounter Details +--------+ + + + + | Date | Type | Department | Care Team | Description | +--------+ + + + + | 11/27/ | Telephone | [facility] | Eladio Lynch, | Wrist pain | | 2006 | | at [facility] | MD [address] | | | | | [address] | [facility] [place] | | | | | [facility] | [address] | | | | | and Serena, | [phone] | | | | | [facility] | | | | | | Floor [facility] [place] | | | | | | [address] | | | | | | [phone] | | | +--------+ + + + [...]
--- OUTSIDE RECORDS SUMMARY | ~2020-02-24 | XMS | Encounter Summary ---
Demographics + + + | Address | [address] [place] [address] Ln | | | [place] [address] | + + + | Home Phone [...] | | | | | [place] [address] | | + + + + + Care Team Providers + +------+ + | Care Expander Machine Operator Name | Role | Phone [...] as of this encounter Progress Notes Interface, Commodities Broker In - 01/24/2006 3:11 AM PDTCLINIC DATE: 03/17/2003 [facility] CHIEF COMPLAINT: Followup swelling in [...] Hale. MD Kofi Hahn M.D. MICHAEL / [id number] / [id number] / [id number] / [id number] Tdocumented in this encounter Plan of Treatment Not on filedocumented as of this encounter Visit Diagnoses Not on filedocumented in this encounter"
--- OUTSIDE RECORDS SUMMARY | ~2020-02-24 | XMS | Encounter Summary ---
Demographics + + + | Address | [address] [place] [address] Ln | | | [place] [address] | + + + | Home Phone [...] | | | | | [place] [address] | | + + + + + Care Team Providers + +------+ + | Care Toggle Press Folder And Feeder Name | Role | Phone | + [...] as of this encounter Progress Notes Interface, Renovator Machine Operator In - 04/14/2006 1:05 AM PDTCLINIC DATE: 11/19/2001 [facility] SUBJECTIVE: Ms. Toth is here for [...] visit. Eladio Lynch M.D. ROSIE / KIMBERLEY [id number] / [id number] / [id number] / Tdocumented in this encounter Plan of Treatment Not on filedocumented as of this encounter Visit Diagnoses Not on filedocumented in this encounter"
--- OUTSIDE RECORDS SUMMARY | ~2020-02-24 | XMS | Encounter Summary ---
Demographics + + + | Address | [address] [place] [address] Ln | | | [place] [address] | + + + | Home Phone [...] | | | | | [place] [address] | | + + + + + Care Team Providers + +------+ + | Care Military Personnel Specialist Name | Role | Phone | + +------+ + | Eladio Lnych MD | PCP | | + +------+ + Encounter Details +--------+ + + + + | Date | Type | Department | Care Team | Description | +--------+ + + + + | 01/24/ | Results | [facility] | Eladio Lynch, | | | 1997 | Only | Medicine at [facility] | [address] | | | | | Uriah [address] | [place], [place] | | | | | [address] | [address] | | | | | Mailcode: MINDY Albarran | [phone] | | | | | [address] | | | | | | [place], [place] | | | | | | [address] | | | | | | [phone] | | | +--------+ + + + [...] + + + | [facility] | [address] | [place] [address] | | | LABORATORY | | | [...] | + + + + + | [facility] | [address] [facility] | [place] [address] | | | LABORATORY | | | | + + + + + documented in this encounter Visit Diagnoses Not on filedocumented in this encounter"
--- OUTSIDE RECORDS SUMMARY | ~2020-02-24 | XMS | Encounter Summary ---
Demographics + + + | Address | [address] [place] [address] Ln | | | [place] [address] | + + + | Home Phone [...] | | | | | [place] [address] | | + + + + + Care Team Providers + +------+ + | Care Manager Pulmonary Name | Role | Phone | + +------+ + | Eladio Lynch MD | PCP | | + +------+ + Encounter Details +--------+ + + + + | Date | Type | Department | Care Team | Description | +--------+ + + + + | 03/23/ | Office | [facility] | Note, [...] as of this encounter Progress Notes Interface, Mammal Control Agent In - 08/20/2006 3:20 PM [facility] DATE: 03/23/98 [facility] SUBJECTIVE: Patient is here in followup of leg abscess. She was seen in the emergency room initially last Monday and again on Monday. On Monday she was noted to have a skin abscess on the inner aspect of the left thigh. This was incised and drained and packed. Patient presented in followup the follow day to the emergency room and was felt to be possibly getting slightly worse and was admitted for 24-hour observation, receiving intravenous antibiotics and was discharged on Velosef 500 mg 4 times a day. She presents today in followup saying that the packing had fallen out and that there may be some increased swelling. PHYSICAL EXAMINATION: There is a 1-cm opening in the left inner thigh close to the perineum. There is no drainage, no induration, no fluctuance. Minimal erythema and minimal edema. ASSESSMENT: Skin abscess, appears to be healing well. Patient and her daughter are extremely concerned about the situation and are concerned that there may be more swelling today, but there is certainly no evidence of a fluid collection currently. There is no evidence on exam of tracking into the perineal area. She has minimal discomfort moving toward the vagina. PLAN: Continue current antibiotics of Velosef 500 mg q.i.d. I had Dr. Lynch who is her regular physician see her and she has a followup with him tomorrow for reevaluation. He agreed with current strategy. Kofi Mejia M.D. Scrap Handler, Family Medicine SAF:sacha documented in this encounter Plan of Treatment Not on filedocumented as of this encounter Visit Diagnoses Not on filedocumented in this encounter"
--- OUTSIDE RECORDS SUMMARY | ~2020-02-24 | XMS | Encounter Summary ---
Demographics + + + | Address | [address] [place] [address] Ln | | | [place] [address] | + + + | Home Phone [...] | | | | | [place] [address] | | + + + + + Care Team Providers + +------+ + | Care Leather Goods Ii Assembler Name | Role | Phone | [...] | 2000 | Only | Medicine at [facility] | [address] | | | | | Uriah [address] | [place], [place] | | | | | [address] | [address] | | | | | Mailcode: MINDY Albarran | [phone] | | | | | [address] | | | | | | [place], [place] | | | | | | [address] | | | | | | [phone] | | | +--------+ + + + [...] + + + | [facility] | [address] | [place] [address] | | | LABORATORY | | | | + + + + + documented in this encounter Visit Diagnoses Not on filedocumented in this encounter"
--- OUTSIDE RECORDS SUMMARY | ~2020-02-24 | XMS | Encounter Summary ---
Demographics + + + | Address | [address] [place] [address] Ln | | | [place] [address] | + + + | Home Phone [...] | U[place] | | | | | [place] [address] | | + + + + + Care Team Providers + +------+ + | Care Christmas Tree Farmer Name | Role | Phone | + +------+ + PCP | Unavailable | + +------+ + Encounter Details +--------+ + + + + | Date | Type | Department | Care Team | Description | +--------+ + + + + | 05/10/ | Results | | Other, Faculty | | | 1998 | Only | | [phone] | | +--------+ + + + + [...] | | + +---------+ + + | [facility] DEPARTMENT OF | | | | [...] | | + +---------+ + + | [facility] DEPARTMENT OF | | | | | RADIOLOGY | | | | + +---------+ + + documented in this encounter Visit Diagnoses Not on filedocumented in this encounter"
--- OUTSIDE RECORDS SUMMARY | ~2020-02-24 | XMS | Encounter Summary ---
Demographics + + + | Address | [address] [place] [address] Ln | | | [place] [address] | + + + | Home Phone [...] | | | | | [place] [address] | | + + + + + Care Team Providers + +------+ + | Care Yarn Sorter Name | Role | Phone | + +------+ + PCP | Unavailable | + +------+ + Encounter Details +--------+ + + + + | Date | Type | Department | Care Team | Description | +--------+ + + + + | 10/07/ | Results | [facility] | Eladio Lynch, | | | 1997 | Only | Medicine at [facility] | [address] | | | | | Uri[place] [address] | [place], [place] | | | | | [address] | [address] | | | | | Mailcode: MINDY Albarran | [phone] | | | | | [address] | | | | | | [place], [place] | | | | | | [address] | | | | | | [phone] | | | +--------+ + + + [...] | + +--------+ + + + | FOOT, 3 VIEWS | Routin | 10/07/1997 | | Results for this | | | e | 4:01 PM | | procedure are in the | | | | PST | | results section. | + +--------+ + + + documented in this encounter Results FOOT, 3 VIEWS (10/07/1997 4:01 PM PST) + + + + + + | Component | Value | Ref Range | Performed | Pathologist | | | | | At | Signature | + + + + + + | FOOT, 3 | Radiologist 1: TANJA, | | | | | VIEWS | Denisha WHITLEY M.D.RIGHT | | | | | | FOOT AND FOURTH TOE ON | | | | | | 10/07/97DICTATED ON | | | | | | 10/14/97 CLINICAL | | | | | | HISTORY: Rule out | | | | | | fracture of the fourth | | | | | | toe. AP and oblique | | | | | | views of the foot are | | | | | | obtained with dedicated | | | | | | lateralview of the 4th | | | | | | toe. No fracture or | | | | | | dislocation is seen. | | | | | | IMPRESSION:No fracture. | | | | | | END OF IMPRESSION: | | | | | | | | | | + + + + + + + + | Specimen | + + | | + + + +---------+ + + | Performing | Address | City/State/Zipcode | Phone Number | | Organization | | | | + +---------+ + + | [facility] DEPARTMENT OF | | | | | RADIOLOGY | | | | + +---------+ + + documented in this encounter Visit Diagnoses Not on filedocumented in this encounter"
--- OUTSIDE RECORDS SUMMARY | ~2020-02-24 | XMS | Encounter Summary ---
Demographics + + + | Address | [address] [place] [address] Ln | | | [place] [address] | + + + | Home Phone [...] | | | | | [place] [address] | | + + + + + Care Team Providers + +------+ + | Care Blind Hooker Name | Role | Phone | + +------+ + PCP | Unavailable | + +------+ + Encounter Details +--------+ + + + + | Date | Type | Department | Care Team | Description | +--------+ + + + + | 10/07/ | Results | [facility] | Eladio Lynch, | | | 1997 | Only | Medicine at [facility] | [address] | | | | | Uri[place] [address] | [place], [place] | | | | | [address] | [address] | | | | | Mailcode: MINDY Albarran | [phone] | | | | | [address] | | | | | | [place], [place] | | | | | | [address] | | | | | | [phone] | | | +--------+ + + + [...] + + + | [facility] | [address] | [place] [address] | | | LABORATORY | | | [...] | | + +---------+ + + | [facility] DEPARTMENT OF | | | | | RADIOLOGY | | | | + +---------+ + + documented in this encounter Visit Diagnoses Not on filedocumented in this encounter"
--- OUTSIDE RECORDS SUMMARY | ~2020-02-24 | XMS | Encounter Summary ---
Demographics + + + | Address | [address] [place] [address] Ln | | | [place] [address] | + + + | Home Phone [...] | [facility] | | | | | [place] [address] | | + + + + + Care Team Providers + +------+ + | Care Interpreter And Translator Name | Role | Phone | + [...] | | 2005 | | Medicine at [facility] | [address] | | | | | Uri[place] [address] | [place], [place] | | | | | [address] | [address] | | | | | Mailcode: MINDY Albarran | [phone] | | | | | [address] | | | | | | [place], [place] | | | | | | [address] | | | | | | [phone] | | | +--------+ + + + [...]
--- OUTSIDE RECORDS SUMMARY | ~2020-02-24 | XMS | Encounter Summary ---
Demographics + + + | Address | [address] [place] [address] Ln | | | [place] [address] | + + + | Home Phone [...] | | | | | [place] [address] | | + + + + + Care Team Providers + +------+ + | Care Roller Shop Supervisor Name | Role | Phone | [...] Request | | 2007 | | at [facility] | MD [address] | | | | | [address] | [place], [place] | | | | | [facility] | [address] | | | | | and Healing, | [phone] | | | | | Building | | | | | | Floor [facility] [place] | | | | | | [address] | | | | | | [phone] | | | +--------+--------+ + + + [...]
--- OUTSIDE RECORDS SUMMARY | ~2020-02-24 | XMS | Encounter Summary ---
Demographics + + + | Address | [address] [place] [address] Ln | | | [place] [address] | + + + | Home Phone [...] | | | | | [place] [address] | | + + + + + Care Team Providers + +------+ + | Care Manufacturing Analyst Name | Role | Phone | [...] Rd | | | | | | [place] | | | | | | [address] | | | +--------+ + + + [...]
--- OUTSIDE RECORDS SUMMARY | ~2020-02-24 | XMS | Encounter Summary ---
Demographics + + + | Address | [address] [place] [address] Ln | | | [place] [address] | + + + | Home Phone [...] | | | | | [place] [address] | | + + + + + Care Team Providers + +------+ + | Care Loader Malt House Name | Role | Phone | + [...] | +--------+ + + + + | 10/21/ | Patient | [facility] | Eladio Lynch, | Mammography | | 2013 | Outreach | at [facility] | MD [address] | | | | | [address] | [place], [place] | | | | | [facility] | [address] | | | | | and Serena, | [phone] | | | | | [facility] | | | | | | Floor [place], [place] | | | | | | [address] | | | | | | [phone] | | | +--------+ + + + [...]
--- OUTSIDE RECORDS SUMMARY | ~2020-02-24 | XMS | Encounter Summary ---
Demographics + + + | Address | [address] | | | [place] [address] | + + + | Home Phone [...] | Author | [facility] | | | and [place] | + + + | Organization | [facility] | | [...] Team Providers + +------+ + | Care Lithograph Press Feeder Name | Role | Phone | + +------+ + | Krista Alvarez | PCP | | | PA | | | + +------+ + Encounter Details +--------+ + + + + | Date | Type | Department | Care Team | Description | +--------+ + + + + | 12/19/ | Hospital | [facility] | [place], | Obstructive chronic | | 2014 | Encounter | MED CTR PULMONARY | Lety Lynch MD | bronchitis with | | | | FUN[address] | | acute bronchitis | | | | [place], | | ([facility]) | | | | [place] [address] | | | | | | [phone] | | | +--------+ + + + [...] + + documented as of this encounter Medications at Time of Discharge + + + +---------+ + + | Medication | Sig | Dispensed | Refills | Start | End Date | | | | | | Date | | + + + +---------+ + + | | Inhale 2 puffs into | 1 | 11 | /15/20 | | | budesonide-formotero | the lungs [...] + + +---------+ + + | albuterol (PROAIR | Inhale 2 puffs into | | 0 | | | | HFA) 90 mcg/puff | the lungs every 6 | | | | 8 | | inhaler | hours as needed for | | | | | | | Wheezing. | | | | | + + + +---------+ + + | ALPRAZolam (XANAX) | Take 0.25 mg by | | 0 | | | | 0.25 mg tablet | mouth 3 times daily | | | | 8 | | | as needed for | | | | | | | Anxiety. | | | | | + + + +---------+ + + | Dextromethorphan | Take by mouth 2 | | 0 | | | | HBr (BENYLIN ADULT | times daily. | | | | 8 | | FORMULA PO) | | | | | | + + + +---------+ + + | diphenhydrAMINE | Take 25 mg by mouth | | 0 | | | | (BENADRYL) 25 mg | 2 times daily. | | | | 8 | | tablet | | | | | | + + + +---------+ + + | FLUoxetine | Take 20 mg by mouth | | 0 | | | | (PROZAC) 20 mg | Daily. | | | | 8 | | capsule | | | | | | + + + +---------+ + + | fluticasone | Inhale 2 puffs into | | 0 | | | | (FLOVENT HFA) 220 | the lungs 2 times | | | | 5 | | mcg/puff inhaler | daily. | | | | | + + + +---------+ + + | FUROSEMIDE PO | Take 20 mg by mouth | | 0 | | | | | Daily. | | | | 5 | + + + +---------+ + + | | Take 1 tablet by | | 0 | | | | HYDROcodone-acetamin | mouth every 6 hours | | | | 8 | | ophen (NORCO) 10-325 | as needed for Pain. | | | | | | mg per tablet | | | | | | + + + +---------+ + + | METFORMIN HCL PO | Take by mouth 2 | | 0 | | | | | times daily. | | | | 5 | + + + +---------+ + + | methocarbamol | Take 750 mg by mouth | | 0 | | | | (ROBAXIN) 750 mg | 4 times daily. | | | | 8 | | tablet | | | | | | + + + +---------+ + + | MONTELUKAST SODIUM | Take 10 mg by mouth | | 0 | | | | PO | nightly. | | | | 5 | + + + +---------+ + + | OMEPRAZOLE PO | Take 20 mg by mouth | | 0 | | | | | Daily. | | | | 5 | + + + +---------+ + + | simvastatin | Take 20 mg by mouth | | 0 | | 12/18/201 | | (ZOCOR) 20 mg tablet | nightly. | | | | 8 | + + + +---------+ + + documented as of this encounter Procedure Notes Lety Gallego MD - 12/25/2014 3:49 PM PDTAssociated Order(s): PFT PULMONARY FUNCT ION TESTING ORDERSProcedure(s): PFT PULMONARY FUNCTION TESTING ORDERSPre-Procedure Diagnose( s): Obstructive chronic bronchitis with acute bronchitis (HCC) PULMONARY FUNCTION TESTING METHOD: Spirometry was obtained pre and post administration of inhaled bronchodilator. Diff usion capacity was obtained by single breath method and was not corrected for a measured hem oglobin. Lung volume testing was not done due to claustrophobia. ATS standards were met. SPIROMETRY: Prior to administration of inhaled bronchodilator, FVC was mildly reduced at 1. 97 L or 77% of predicted. FEV1 was mildly reduced at 1.27 L or 65% of predicted. FEV1/FVC ra sanjana was reduced at 65%. After administration of inhaled bronchodilator, FVC increased by 3% to 2.04 L or 79% of predicted. FEV1 increased by 3% to 1.32 L or 67% of predicted. FEV1/FVC ratio was reduced at 65%. DIFFUSION CAPACITY: Diffusion capacity was moderately reduced at 10.4 mL/mmHg per minute or 48% of predicted and was not corrected for a measured hemoglobin. IMPRESSION: Spirometry is consistent with moderate obstructive physiology. There was not a significant response to inhaled bronchodilator. Diffusion capacity is moderately reduced and is not corrected for measured hemoglobin. Electronically signed by: Lety Gallego MD 12/25/2014 15:[address] [facility] CC: Krista Edmondson documented in t his encounter Plan of Treatment Not on filedocumented as of this encounter Procedures + +--------+ + + + | Procedure Name | Priori | Date/Time | Associated Diagnosis | Comments | | | ty | | | | + +--------+ + + + | PFT PULMONARY | FELICIA | 12/25/2014 | Obstructive | Results for this | | FUNCTION TESTING | | 3:57 PM | chronic bronchitis | procedure are in the | | ORDERS | | PDT | with acute | results section. | | | | | bronchitis (HCC) | | + +--------+ + + + | PFT PULMONARY | FELICIA | 12/25/2014 | Obstructive | Results for this | | FUNCTION TESTING | | 3:57 PM | chronic bronchitis | procedure are in the | | ORDERS | | PDT | with acute | results section. | | | | | bronchitis (HCC) | | + +--------+ + + + | PFT PULMONARY | FELICIA | 12/25/2014 | Obstructive | Results for this | | FUNCTION TESTING | | 3:57 PM | chronic bronchitis | procedure are in the | | ORDERS | | PDT | with acute | results section. | | | | | bronchitis (HCC) | | + +--------+ + + + | DIAGNOSTIC REPORT - | | 12/19/2014 | | | | EXTERNAL SCAN | | 12:00 AM | | | | | | PDT | | | + +--------+ + + + documented in this encounter Results PFT PULMONARY FUNCTION TESTING [...] | by: Lety Gallego MD 12/25/2014 15:49 [facility] | | | [facility] CC: Krista Edmondson | | + + + documented in this encounter Visit Diagnoses + + | Diagnosis | + + | Obstructive chronic bronchitis with acute bronchitis (HCC) Obstructive chronic | | bronchitis with acute bronchitis | + + documented in this encounter Administered Medications + +--------+ +--------+------+------+ | Medication Order | MAR | Action | Dose | Rate | Site | | | Action | Date | | | | + +--------+ +--------+------+------+ | albuterol 2.5 mg/3 mL nebulizer | Given | 12/20/19 | 2.5 mg | | | | solution 2.5 mg 2.5 mg, | | 15 1:45 | | | | | Nebulization, RT Once, Fri | | PM PDT | | | | | 12/19/15 at 1400, For 1 dose, RT | | | | | | | will administer., | | | | | | + +--------+ +--------+------+------+ +---+---+ | | | +---+---+ documented in this encounter"
--- OUTSIDE RECORDS SUMMARY | ~2020-02-24 | XMS | Encounter Summary ---
Demographics + + + | Address | [address] [place] [address] Ln | | | [place] [address] | + + + | Home Phone [...] | | | | | [place] [address] | | + + + + + Care Team Providers + +------+ + | Care Records Coordinator Name | Role | Phone | [...] | +--------+ + + + + | 04/08/ | Patient | [facility] | Eladio Lynch, | Mammography | | 2013 | Outreach | at [facility] | MD [address] | | | | | [address] | [place], [place] | | | | | [facility] | [address] | | | | | and [place]rena, | [phone] | | | | | [facility] | | | | | | Floor [place], [place] | | | | | | [address] | | | | | | [phone] | | | +--------+ + + + [...]
--- OUTSIDE RECORDS SUMMARY | ~2020-02-24 | XMS | Encounter Summary ---
Demographics + + + | Address | [address] [place] [address] Ln | | | [place] [address] | + + + | Home Phone [...] | | | | | [place] [address] | | + + + + + Care Team Providers + +------+ + | Care Brewmaster Name | Role | Phone | + [...] as of this encounter Progress Notes Interface, Plant Health Care Technician In - 03/06/2005 7:43 AM PDTClinic Date: [...] insulin. Eladio Lynch M.D. ROSIE / KIMBERLEY [id number] / [id number] / [id number] / [id number] Tdocumented in this encounter Plan of Treatment Not on filedocumented as of this encounter Visit Diagnoses Not on filedocumented in this encounter"
--- OUTSIDE RECORDS SUMMARY | ~2020-02-24 | XMS | Encounter Summary ---
Demographics + + + | Address | [address] [place] [address] Ln | | | [place] [address] | + + + | Home Phone [...] | | | | | [place] [address] | | + + + + + Care Team Providers + +------+ + | Care Shop Tech Name | Role | Phone | [...] as of this encounter Progress Notes Interface, Pupil Personnel Worker In - 06/08/2005 5:03 AM PST [id number] [facility] Clinic Date: 05/30/2005 Clinic: [facility] Subjective: Ms. Toth is here for a followup of musculoskeletal pain, spinal and hip related. She is status post surgery in 1979 and 1983, and has been on opioid analgesia since. 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 Her medications are available on wmbly and [facility]. She is here today for refill of Vicodin 1 p.o. t.i.d. #90 with 1 refill and Soma 1 p.o. t.i.d. #90 with 1 refill which were done today. Physical Examination: Vital Signs: Stable. General: No apparent distress otherwise on exam. We will provide a flu vaccination today as well. Eladio Lynch M.D. ROSIE / KIMBERLEY [id number] / [id number] / [id number] / Electronically signed by Eladio Lynch 06-07-2005 10:18:38 AM docukevin i n this encounter Plan of Treatment Not on filedocumented as of this encounter Visit Diagnoses Not on filedocumented in this encounter"
--- OUTSIDE RECORDS SUMMARY | ~2020-02-24 | XMS | Encounter Summary ---
Demographics + + + | Address | [address] [place] [address] Ln | | | [place] [address] | + + + | Home Phone [...] | | | | | [place] [address] | | + + + + + Care Team Providers + +------+ + | Care Civil Engineering Drafter Name | Role | Phone | + [...]
--- OUTSIDE RECORDS SUMMARY | ~2020-02-24 | XMS | Encounter Summary ---
Demographics + + + | Address | [address] [place] [address] Ln | | | [place] [address] | + + + | Home Phone [...] | | | | | [place] [address] | | + + + + + Care Team Providers + +------+ + | Care Mechanical Specialist Name | Role | Phone | [...] as of this encounter Progress Notes Interface, Ways Operator In - 08/05/2006 1:03 AM PSTCLINIC DATE: 09/22/1998 [facility] SUBJECTIVE: The patient is a 68-year-old woman [...] she tentatively has an appointment with social media campaign manager to discuss her issues with stress and [...]
--- OUTSIDE RECORDS SUMMARY | ~2020-02-24 | XMS | Encounter Summary ---
Demographics + + + | Address | [address] [place] [address] Ln | | | [place] [address] | + + + | Home Phone [...] | | | | | [place] [address] | | + + + + + Care Team Providers + +------+ + | Care Manager Operational Name | Role | Phone | + +------+ + | Eladio Lynch MD | PCP | | + +------+ + Encounter Details +--------+ + + + + | Date | Type | Department | Care Team | Description | +--------+ + + + + | 05/01/ | Office | [facility] | Note, [...] as of this encounter Progress Notes Interface, Outsole Molder In - 01/24/2006 3:11 AM PDTCLINIC DATE: 05/01/2003 [facility] SUBJECTIVE: Ms. Toth is here today for 2 complaints. One is a small granuloma on her right foot dorsally from what she believes is a spider bite several weeks ago. She was treated with antibiotics with secondary infection at one time. This did not drain, and at this point, she feels as if there is radiating pain proximally from this site up her anterior leg. She has a history of diabetes with neuropathy as well as vascular pathology from chronic tobacco use recently cessessed. She also has a complain of right shoulder pain that radiates down the lateral aspect of her arm, occasionally into her thumb. No areas of motor weakness for her to report. Allergies and medications are available on the LCR. She is on a medication care agreement but is not due for her medications to be filled today. OBJECTIVE GENERAL: She is afebrile. Alert and oriented x 4 and in no apparent distress. EXTREMITIES: She has a 5-mm subdermal granuloma on the dorsum over her third metatarsal with no areas of fluctuation, erythema, or lymphangitic changes. She has trace pitting edema that is bilateral in nature. She is ambulating without assistance. Good capillary refill. ASSESSMENT: Spider bite, old. PLAN: I encouraged her to take a multiple vitamin and B-stress complex. Make sure she is well hydrated and together control of her diabetes as best as possible, and that the pain radiating from both of these areas likely will be improved when I see her back and will definitely improve with better diabetes control. Eladio Lynch M.D. ROSIE / [id number] / [id number] / [id number] / Tdocumented in this encounter Plan of Treatment Not on filedocumented as of this encounter Visit Diagnoses Not on filedocumented in this encounter"
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
--- OUTSIDE RECORDS SUMMARY | ~2020-02-24 | XMS | Encounter Summary ---
Demographics + + + | Address | [address] [place] [address] Ln | | | [place] [address] | + + + | Home Phone [...] | | | | | [place] [address] | | + + + + + Care Team Providers + +------+ + | Care Drill Rig Operator Name | Role | Phone | + +------+ + | Unknown | PCP | Unavailable | + +------+ + Encounter Details +--------+ + + + + | Date | Type | Department | Care Team | Description | +--------+ + + + + | 06/02/ | Results | LAB CORE [address] | Maddie Grant | | | 1997 | Only | [address] | [phone] | | | | | [place] | | | | | | [address] | | | | | | [phone] | | | +--------+ + + + [...] from | | | | | | [facility], | | | | | | [place], [place], is | | | | | | oneH&E-stained slide | | | | | | bearing accession number | | | | | | [id number], fourteen | | | | | | stainedslides labeled | | | | | | VC-[id number], sublabeled P3, | | | | | | one H&E-stained slides | | | | | | [id number], two | | | | | | H&E-stained slides | | | | | | labeled [id number], and | | | | | | two H&E-stainedslides | | | | | | labeled [id number], | | | | | | sublabeled [...] | | | | | | (SLIDE G50-0352): | | | | | | PULMONARY [...] (SLIDE | | | | | | Y76-9974): BRONCHIAL | | | | | | MUCOSA WITH CARTILAGE | | | | | | AND PULMONARY PARENCHYMA | | | | | | WITH NO TUMOR | | | | | | SEENCOLON, POLYPS AT 20 | | | | | | AND 30 CM.(SLIDE | | | | | | O27-3763): | | | | | | HYPERPLASTIC POLYPS | | | | | | (2)GASTRIC BIOPSY | | | | | | (I94-8122, SUBLABELED | | | | | | A): GASTRIC | | | | | | FUNDIC-TYPE MUCOSA WITH | | | | | | MINIMAL CHRONIC | | | | | | INFLAMMATIONESOPHAGEAL | | | | | | BIOPSY ([id number], | | | | | | SUBLABELED [...] + + + + + | [facility] | [address] | [place] [address] | | | PATHOLOGY | AB[address] WATTS | | | + + + + + documented in this encounter Visit Diagnoses Not on filedocumented in this encounter"
--- OUTSIDE RECORDS SUMMARY | ~2020-02-24 | XMS | Encounter Summary ---
Demographics + + + | Address | [address] [place] [address] Ln | | | [place] [address] | + + + | Home Phone [...] | | | | | [place] [address] | | + + + + + Care Team Providers + +------+ + | Care Consultants Intern Name | Role | Phone | [...] [id number] | | | | | | [place], [place] | | | | | | [address] | | | | | | [phone] | | | +--------+ + + + [...]
--- OUTSIDE RECORDS SUMMARY | ~2020-02-24 | XMS | Encounter Summary ---
Demographics + + + | Address | [address] [place] [address] Ln | | | [place] [address] | + + + | Home Phone [...] | | | | | [place] [address] | | + + + + + Care Team Providers + +------+ + | Care Forest Biometrics Professor Name | Role | Phone | [...] | | 2013 | Visit | at [facility] | MD [address] | (Primary Dx); | | | | [address] | [place], [place] | Generalized and | | | | [facility] | [address] | unspecified | | | | and Healing, | [phone] | atherosclerosis; | | | | Building | | Depression; COPD | | | | Floor [place], [place] | | (chronic obstructive | | | | [address] | | pulmonary disease) | | | | [phone] | | (HCC); DM W/O | | [...] directed 100 3 RX DURABLE MEDICAL EQUIPMENT AR Misc.(Non-Drug; Combo Route) USE DIRECTED 1 0 [...]
--- OUTSIDE RECORDS SUMMARY | ~2020-02-24 | XMS | Encounter Summary ---
Demographics + + + | Address | [address] [place] [address] Ln | | | [place] [address] | + + + | Home Phone [...] | | | | | [place] [address] | | + + + + + Care Team Providers + +------+ + | Care Linux Systems Engineer Name | Role | Phone | [...] Request | | 2006 | | at [facility] | MD [address] | | | | | [address] | [facility] [place] | | | | | [facility] | [address] | | | | | and Healing, | [phone] | | | | | Building | | | | | | Floor [facility] [place] | | | | | | [address] | | | | | | [phone] | | | +--------+--------+ + + + [...]
--- OUTSIDE RECORDS SUMMARY | ~2020-02-24 | XMS | Encounter Summary ---
Demographics + + + | Address | [address] [place] [address] Ln | | | [place] [address] | + + + | Home Phone [...] | | | | | [place] [address] | | + + + + + Care Team Providers + +------+ + | Care Telecommunications Specialist Name | Role | Phone | [...] | | 2004 | | Medicine at [facility] | [address] | | | | | rUiah [address] [facility] | [place], [place] | | | | | [address] | [address] | | | | | Mailcode: MINDY lAbarran | [phone] | | | | | [address] | | | | | | [place], [place] | | | | | | [address] | | | | | | [phone] | | | +--------+--------+ + + + [...]
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
--- OUTSIDE RECORDS SUMMARY | ~2020-02-24 | XMS | Encounter Summary ---
Demographics + + + | Address | [address] [place] [address] Ln | | | [place] [address] | + + + | Home Phone [...] | | | | | [place] [address] | | + + + + + Care Team Providers + +------+ + | Care High School Science Tutor Name | Role | Phone | + [...] of this encounter Progress Notes Interface, Rotary Derrick Operator In - 04/29/2006 3:08 AM PDTCLINIC DATE: 07/23/2001 [facility] SUBJECTIVE: A 60-year-old female who presents [...] back surgeries. Eladio Lynch M.D. Syed / [id number] / [id number] / [id number] / [id number] Tdocumented in this encounter Plan of Treatment Not on filedocumented as of this encounter Visit Diagnoses Not on filedocumented in this encounter"
--- OUTSIDE RECORDS SUMMARY | ~2020-02-24 | XMS | Encounter Summary ---
Demographics + + + | Address | [address] [place] [address] Ln | | | [place] [address] | + + + | Home Phone [...] | | | | | [place] [address] | | + + + + + Care Team Providers + +------+ + | Care Air Dispatcher Name | Role | Phone | [...] Medication | | 2006 | | at [facility] | MD [address] | management | | | | [address] | [place], [place] | | | | | [facility] | [address] | | | | | and Healing, | [phone] | | | | | [facility] | | | | | | Floor [facility] [place] | | | | | | [address] | | | | | | [phone] | | | +--------+ + + + [...]
--- OUTSIDE RECORDS SUMMARY | ~2020-02-24 | XMS | Encounter Summary ---
Demographics + + + | Address | [address] [place] [address] Ln | | | [place] [address] | + + + | Home Phone [...] | | | | | [place] [address] | | + + + + + Care Team Providers + +------+ + | Care Food Service Team Member Name | Role | Phone | [...] as of this encounter Progress Notes Interface, Utilities Operator In - 02/15/2006 1:08 AM PDTCLINIC DATE: 09/19/[address] [facility] SUBJECTIVE: Ms. Toth is a 62-year-old [...] airway disease at baseline. Eladio Lynch M.D. [facility] / [id number] / [id number] / [id number] / [id number] Amparo, Utilities Operator In - 02/10/2006 3:11 AM PDTCLINIC DATE: 09/19/[address] [facility] SUBJECTIVE: Ms. Toth is here for [...] or signs of fungal infection. ASSESSMENT 1. Cln-ugllxhy-ejkqgwqcp diabetes mellitus. 2. Chronic pain refilled medications [...] months' time. Eladio Lynch M.D. ROSIE / [id number] / [id number] / [id number] / Tdocumented in this encounter Plan of Treatment Not on filedocumented as of this encounter Visit Diagnoses Not on filedocumented in this encounter"
--- OUTSIDE RECORDS SUMMARY | ~2020-02-24 | XMS | Encounter Summary ---
Demographics + + + | Address | [address] [place] [address] Ln | | | [place] [address] | + + + | Home Phone [...] | | | | | [place] [address] | | + + + + + Care Team Providers + +------+ + | Care Outdoor Adventure Leader Name | Role | Phone | + +------+ + | Eladio Lynch MD | PCP | | + +------+ + Encounter Details +--------+ + + + + | Date | Type | Department | Care Team | Description | +--------+ + + + + | 11/30/ | Office | [facility] | Note, [...] as of this encounter Progress Notes Interface, Animal Sticker In - 06/04/2006 3:03 AM PSTCLINIC DATE: 11/30/2000 [facility] SUBJECTIVE: Ms. Toth is a 60-year-old female who presents with a new problem concerning dyspepsia. Previously her occasional heartburn was relieved with bmhy-tmq-noygqmt antacids but at this point is not. She feels as if both liquids and solids occasionally get stuck just below her breastbone, and though she does not vomit, occasionally she gets acid-bitter sensation up into her throat and a bitter taste in her mouth. She has not had any vomiting of blood. She has not had any change in bowel movements. She has not had any abdominal surgeries. She does not have any lower abdominal pain. MEDICATIONS 1. Glipizide 10 mg 2 p.o. b.i.d. 2. Lipitor 20 mg p.o. q.d. 3. Albuterol. 4. Atrovent. 5. Flovent. 6. Vancenase. 7. Vicodin. 8. Flexeril. REVIEW OF SYSTEMS: Otherwise negative today aside from a stubbed right fourth toe. OBJECTIVE: GENERAL: She is in no apparent distress. She is alert and oriented x 4. VITAL SIGNS: Stable. She has a CBG 108. ABDOMEN: Soft with positive bowel sounds. No hepatosplenomegaly. Mild epigastric tenderness. ASSESSMENT AND PLAN 1. Dyspepsia, likely gastroesophageal reflux disease, to try Zantac 150 mg b.i.d., reassess at her next visit. 2. Chronic pain, now off Soma, currently using Flexeril 10 mg b.i.d. with Vicodin t.i.d. I will see her back in 1 month. Eladio Lynch M.D. ROSIE / [id number] / [id number] / [id number] / Tdocumented in this encounter Plan of Treatment Not on filedocumented as of this encounter Visit Diagnoses Not on filedocumented in this encounter"
--- OUTSIDE RECORDS SUMMARY | ~2020-02-24 | XMS | Encounter Summary ---
Demographics + + + | Address | [address] [place] [address] Ln | | | [place] [address] | + + + | Home Phone [...] | | | | | [place] [address] | | + + + + + Care Team Providers + +------+ + | Care Filling And Packing Supervisor Name | Role | Phone | + +------+ + | Eladio Lynch MD | PCP | | + +------+ + Encounter Details +--------+ + + + + | Date | Type | Department | Care Team | Description | +--------+ + + + + | 02/08/ | Office | [facility] | Note, [...] as of this encounter Progress Notes Interface, Steam Box Hand In - 05/25/2006 1:07 AM PDTCLINIC DATE: 02/08/2001 [facility] SUBJECTIVE: Ms. Toth is here for refill of her monthly medications including Vicodin 5/500. She receives 100 a month of these, and she is trying to use them at q.6-8h. intervals. She uses Flexeril with these once or twice daily and is also on the following medications 1. Albuterol MDI. 2. Atrovent MDI. 3. Flovent MDI. 4. Claritin 10 mg. 5. Vancenase AQ. 6. Glipizide 10 mg 2 p.o. b.i.d. 7. Glucophage 500 mg t.i.d. 8. Premarin 0.625 mg. 9. Progesterone 2.5 mg. REVIEW OF SYSTEMS: Otherwise, negative. OBJECTIVE: GENERAL: She is in no apparent distress. VITAL SIGNS: Blood pressure 118/62, pulse 72, respirations 16, and weight 161 pounds. She is otherwise unexamined. ASSESSMENT 1. Chronic pain. We will refill her medications. 2. Isq-fulfjrb-pteopfjnt diabetes mellitus. We will continue to promote success with respect to diet and exercise. 3. Coronary arteriosclerosis. She is 6 months to date with smoking cessation and doing well. Eladio Lynch M.D. ROSIE / KIMBERLEY [id number] / [id number] / [id number] / Tdocumented in this encounter Plan of Treatment Not on filedocumented as of this encounter Visit Diagnoses Not on filedocumented in this encounter"
--- OUTSIDE RECORDS SUMMARY | ~2020-02-24 | XMS | Encounter Summary ---
Demographics + + + | Address | [address] [place] [address] Ln | | | [place] [address] | + + + | Home Phone [...] | | | | | [place] [address] | | + + + + + Care Team Providers + +------+ + | Care Reservations Specialist Name | Role | Phone | [...] as of this encounter Progress Notes Interface, Soft Crab Shedder In - 03/06/2005 6:06 AM PDT [id number] [facility] Clinic Date: 01/10/2005 Clinic: Subjective: [...] and rhythm. Lungs: Clear to auscultation. Assessment: Lxp-fgmgdfl-lcblvrknk diabetes mellitus. Plan: 1. Reviewed annual needs assessment for her diabetes. 2. Chronic pain. Refilled medication x1 month with 1 refill. Follow up in 2 months. Eladio Lynch M.D. [facility] / [id number] / [id number] / [id number] / Electronically signed by Eladio Lynch 01-31-2005 11:15:56 AM documented i n this encounter Plan of Treatment Not on filedocumented as of this encounter Visit Diagnoses Not on filedocumented in this encounter"
--- OUTSIDE RECORDS SUMMARY | ~2020-02-24 | XMS | Encounter Summary ---
Demographics + + + | Address | [address] [place] [address] Ln | | | [place] [address] | + + + | Home Phone [...] | | | | | [place] [address] | | + + + + + Care Team Providers + +------+ + | Care Cribber Name | Role | Phone | + [...] as of this encounter Progress Notes Interface, Tariff Inspector In - 03/05/2005 10:53 PM PDTClinic Date: [...] 1. Chronic pain. Refill above medications. 2. Hev-jortshz-gldtkjqbw diabetes mellitus. Referral for [facility] for retinal examination. We will draw fasting laboratories as well as refer her for stress echocardiogram. Eladio Lynch M.D. ROSIE / KIMBERLEY [id number] / [id number] / [id number] / Tdocumented in this encounter Plan of Treatment Not on filedocumented as of this encounter Visit Diagnoses Not on filedocumented in this encounter"
--- OUTSIDE RECORDS SUMMARY | ~2020-02-24 | XMS | Encounter Summary ---
Demographics + + + | Address | [address] [place] [address] Ln | | | [place] [address] | + + + | Home Phone [...] | | | | | [place] [address] | | + + + + + Care Team Providers + +------+ + | Care Kaitara Taraka Name | Role | Phone | + +------+ + | Eladio Lynch MD | PCP | | + +------+ + Encounter Details +--------+ + + + + | Date | Type | Department | Care Team | Description | +--------+ + + + + | 03/14/ | Ancillary | Registration [id number] | Eladio Lynch, | | | 2004 | Registratio | [facility] Triana | [address] | | | | n | Justin Mailcode: [id number] | [place], [place] | | | | | [place], [place] | [address] | | | | | [address] | [phone] | | | | | [phone] | | | +--------+ + + + [...] 1.8 | 1.8 - 2.5 mg/dL | [facility] | | | LASMA | | [...] | + + + + + | [facility] DEPARTMENT OF | [address] | [address] | | | PATHOLOGY | [address] | | | + + + + + | [facility] DEPARTMENT OF | [address] | [address] | | | PATHOLOGY | [address] | | | + + + + + PHOSPHORUS, PLASMA (03/14/2005 6:15 PM PDT) + +-------+ + + + | Component | Value | Ref Range | Performed | Pathologist | | | | | At | Signature | + +-------+ + + + | PHOSPHORUS, | 3.8 | 2.4 - 4.7 mg/dL | [facility] | | | PLASMA | | [...] + + + + | [facility] | [address] [facility] | [address] | | | PATHOLOGY | [address] | | | + + + + + | [facility] | [address] [place] [address] | [address] | | | PATHOLOGY | [address] [...] + + + + | [facility] | [address] | [place] [address] | | | PATHOLOGY | [address] | | | + + + + + | [facility] | [address] | [place] [address] | | | PATHOLOGY | [address] | | | + + + + + documented in this encounter Visit Diagnoses Not on filedocumented in this encounter"
--- OUTSIDE RECORDS SUMMARY | ~2020-02-24 | XMS | Encounter Summary ---
Demographics + + + | Address | [address] [place] [address] Ln | | | [place] [address] | + + + | Home Phone [...] | | | | | [place] [address] | | + + + + + Care Team Providers + +------+ + | Care Medical Language Specialist Name | Role | Phone | [...] as of this encounter Progress Notes Interface, Portfolio Lead In - 07/05/2006 1:01 AM PSTCLINIC DATE: 09/13/1999 [facility] SUBJECTIVE: Ms. Toth continues to do [...] her then. Eladio Lynch M.D. [facility] / [id number] / [id number] / [id number] / Tdocumented in this encounter Plan of Treatment Not on filedocumented as of this encounter Visit Diagnoses Not on filedocumented in this encounter"
--- OUTSIDE RECORDS SUMMARY | ~2020-02-24 | XMS | Encounter Summary ---
Demographics + + + | Address | [address] [place] [address] Ln | | | [place] [address] | + + + | Home Phone [...] | | | | | [place] [address] | | + + + + + Care Team Providers + +------+ + | Care Public Health Administrator Name | Role | Phone | + +------+ + PCP | Unavailable | + +------+ + Encounter Details +--------+ + + + + | Date | Type | Department | Care Team | Description | +--------+ + + + + | 09/19/ | Results | [facility] | Eladio Lynch, | | | 2002 | Only | Medicine at [facility] | [address] | | | | | Uriah [address] | [place], [place] | | | | | [address] | [address] | | | | | Mailcode: MINDY Albarran | [phone] | | | | | [address] | | | | | | [place], [place] | | | | | | [address] | | | | | | [phone] | | | +--------+ + + + [...] | | | | | URINE-SARAN | [facility] | | | | | M | [...] | + + + + + | [facility] | [address] | [place] [address] | | | LABORATORY | | | | + + + + + documented in this encounter Visit Diagnoses Not on filedocumented in this encounter"
--- OUTSIDE RECORDS SUMMARY | ~2020-02-24 | XMS | Encounter Summary ---
Demographics + + + | Address | [address] [place] [address] Ln | | | [place] [address] | + + + | Home Phone [...] | | | | | [place] [address] | | + + + + + Care Team Providers + +------+ + | Care Application Support Lead Name | Role | Phone | + [...] + + | 07/14/ | Office | [facility] Primary Care | Eladio Lynch, | DM w/o Complication | | 2005 | Visit | at [facility] | MD [address] | Type II (Primary | | | | [address] | [place], [place] | Dx); Unspecified | | | | [facility] | [address] | Backache | | | | and Healing, | [phone] | | | | | [facility] | | | | | | Floor [place], [place] | | | | | | [address] | | | | | | [phone] | | | +--------+---------+ + + + [...] current medications per medication care agreement @ [facility], family medicine as above. E lectronically signed [...] + + + + | [facility] | [address] | [place], [place] | | | [facility] POINT OF CARE | [address] | [address] | | | TESTS | | | | + + + + + | [facility] | [address] | [place], [place] | | | TESTS | [address] | [address] | | + + + + + documented in this encounter Visit Diagnoses + + | Diagnosis | + + | Type II or unspecified type diabetes mellitus without mention of complication, not | | stated as uncontrolled - Primary | + + | Backache, unspecified | + + documented in this encounter
--- OUTSIDE RECORDS SUMMARY | ~2020-02-24 | XMS | Encounter Summary ---
Demographics + + + | Address | [address] [place] [address] Ln | | | [place] [address] | + + + | Home Phone [...] | | | | | [place] [address] | | + + + + + Care Team Providers + +------+ + | Care Shoe Shiner Name | Role | Phone | + [...] | | 2005 | | Medicine at [facility] | [address] | | | | | Uriah [address] [facility] | [place], [place] | | | | | [address] | [address] | | | | | Mailcode: MINDY Albarran | [phone] | | | | | [address] | | | | | | [place], [place] | | | | | | [address] | | | | | | [phone] | | | +--------+--------+ + + + [...]
--- OUTSIDE RECORDS SUMMARY | ~2020-02-24 | XMS | Encounter Summary ---
Demographics + + + | Address | [address] [place] [address] Ln | | | [place] [address] | + + + | Home Phone [...] | | | | | [place] [address] | | + + + + + Care Team Providers + +------+ + | Care Senior Facilities Manager Name | Role | Phone | + +------+ + | Eladio Lynch MD | PCP | | + +------+ + Encounter Details +--------+ + + + + | Date | Type | Department | Care Team | Description | +--------+ + + + + | 03/16/ | Office | [facility] | Note, [...] as of this encounter Progress Notes Interface, Fertilizer Mixer In - 05/16/2006 3:05 AM PDTCLINIC DATE: 03/16/2001 [facility] SUBJECTIVE: Ms. Toth is a 60-year-old female who presents for refill of her contracted pain medications, currently is using Vicodin t.i.d. and Flexeril b.i.d. for her chronic back pain and other painful conditions. Other medications include glipizide, Lipitor, albuterol, Atrovent, Flovent, and Vancenase. She has no new concerns. REVIEW OF SYSTEMS: Otherwise negative. OBJECTIVE: There is no change in her physical examination. VITAL SIGNS: Her vital signs are stable. GENERAL: She is alert and oriented x 4. 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 PLAN: Refill her medications x 1 month. Follow up at that time. Eladio Lynch M.D. ROSIE / KIMBERLEY [id number] / [id number] / [id number] / Tdocumented in this encounter Plan of Treatment Not on filedocumented as of this encounter Visit Diagnoses Not on filedocumented in this encounter"
--- OUTSIDE RECORDS SUMMARY | ~2020-02-24 | XMS | Encounter Summary ---
Demographics + + + | Address | [address] [place] [address] Ln | | | [place] [address] | + + + | Home Phone [...] | | | | | [place] [address] | | + + + + + Care Team Providers + +------+ + | Care Account Representative Name | Role | Phone | [...] [id number] | | | | | | [place], [place] | | | | | | [address] | | | | | | [phone] | | | +--------+ + + + [...] + + + + | [facility] | [address] | [place] [address] | | | PATHOLOGY | [address] [...] + + + + | [facility] | [address] | [place] [address] | | | PATHOLOGY | [address] | | | + + + + + documented in this encounter Visit Diagnoses Not on filedocumented in this encounter"
--- OUTSIDE RECORDS SUMMARY | ~2020-02-24 | XMS | Encounter Summary ---
Demographics + + + | Address | [address] [place] [address] Ln | | | [place] [address] | + + + | Home Phone | | + + + | Preferred Language | Unknown | + + + | Marital Status | | + + + | Samaritan Affiliation | LINDSAY | + + + | Race | White | + + + | Ethnic Group | Not or | + + + Author + + + | Author | [facility] | + + + | Organization | [facility] | + + + | Address | Unknown | + + + | Phone | Unavailable | + + + Support + + + + + | Name | Relationship | Address | Phone | + + + + + | Jeni Shirley | ECON | [facility] | | | | | [place] [address] | | + + + + + Care Team Providers + +------+ + | Care Train Caller Name | Role | Phone | + [...] as of this encounter Progress Notes Interface, Auto Salvage Worker In - 01/11/2006 1:05 AM PDTClinic Date: 06/05/2003 [facility] Subjective: Ms. Toth is here for [...] months. Eladio Lynch M.D. ROSIE / KIMBERLEY [id number] / [id number] / [id number] / Tdocumented in this encounter Plan of Treatment Not on filedocumented as of this encounter Visit Diagnoses Not on filedocumented in this encounter"
--- OUTSIDE RECORDS SUMMARY | ~2020-02-24 | XMS | Encounter Summary ---
Demographics + + + | Address | [address] [place] [address] Ln | | | [place] [address] | + + + | Home Phone [...] | | | | | [place] [address] | | + + + + + Care Team Providers + +------+ + | Care School Cleaner Name | Role | Phone | [...] Request | | 2005 | | at [facility] | MD [address] | | | | | [address] | [facility] [place] | | | | | [facility] | [address] | | | | | and Healing, | [phone] | | | | | Building | | | | | | Floor [facility] [place] | | | | | | [address] | | | | | | [phone] | | | +--------+--------+ + + + [...]
--- OUTSIDE RECORDS SUMMARY | ~2020-02-24 | XMS | Encounter Summary ---
Demographics + + + | Address | [address] [place] [address] Ln | | | [place] [address] | + + + | Home Phone [...] | | | | | [place] [address] | | + + + + + Care Team Providers + +------+ + | Care Interior Wall Assembler Name | Role | Phone | [...] Request | | 2006 | | at [facility] | MD [address] | | | | | [address] | [place], [place] | | | | | [facility] | [address] | | | | | and Healing, | [phone] | | | | | Building | | | | | | Floor [facility] [place] | | | | | | [address] | | | | | | [phone] | | | +--------+--------+ + + + [...]
--- OUTSIDE RECORDS SUMMARY | ~2020-02-24 | XMS | Encounter Summary ---
Demographics + + + | Address | [address] [place] [address] Ln | | | [place] [address] | + + + | Home Phone [...] | | | | | [place] [address] | | + + + + + Care Team Providers + +------+ + | Care Truck Rental Manager Name | Role | Phone | [...] as of this encounter Progress Notes Interface, Parking Meter Attendant In - 04/06/2005 5:04 AM PDT [id number] TARI CALDWELL Clinic Date: 03/14/2005 Clinic: [facility] Subjective: Ms. Toth is here for refill of her pain medication for chronic back pain. She has a medication care agreement for Vicodin 5/500, 1 p.o. q.i.d., #120 with 1 refill; Soma 1 p.o. t.i.d., #90 with 1 refill. Her problem list does include reactive airway disease, depression, and diabetes. Medications: Her medication list includes amitriptyline, Lasix, albuterol, aspirin, multiple vitamin, and 70/30 insulin. Objective: General: She is no apparent distress. She is alert and oriented x4, otherwise unexamined. Vital Signs: Her vital signs are stable. Assessment: Chronic pain, refill medications as above. Plan: Followup visit in 2 months to review diabetes specifically. Eladio Lynch M.D. [facility] / [id number] / [id number] / [id number] / [id number] Electronically signed by Eladio Lynhc 04-05-2005 09:49:36 AM documented i n this encounter Plan of Treatment Not on filedocumented as of this encounter Visit Diagnoses Not on filedocumented in this encounter"
--- OUTSIDE RECORDS SUMMARY | ~2020-02-24 | XMS | Encounter Summary ---
Demographics + + + | Address | [address] [place] [address] Ln | | | [place] [address] | + + + | Home Phone [...] | | | | | [place] [address] | | + + + + + Care Team Providers + +------+ + | Care Medical Education Manager Name | Role | Phone | + +------+ + PCP | Unavailable | + +------+ + Encounter Details +--------+ + + + + | Date | Type | Department | Care Team | Description | +--------+ + + + + | 11/19/ | Results | [facility] | Eladio Lynch, | | | 2001 | Only | Medicine at [facility] | [address] | | | | | Uriah [address] | [place], [place] | | | | | [address] | [address] | | | | | Mailcode: MINDY Albarran | [phone] | | | | | [address] | | | | | | [place], [place] | | | | | | [address] | | | | | | [phone] | | | +--------+ + + + [...] + + + | [facility] | [address] | [place] [address] | | | LABORATORY | | | [...] | | + +---------+ + + | [facility] DEPARTMENT OF | | | [...] + + | Performing | Address | City[facility] | Phone Number | | Organization | | | | + +---------+ + + | [facility] DEPARTMENT | | | | | RADIOLOGY | | | | + +---------+ + + documented in this encounter Visit Diagnoses Not on filedocumented in this encounter"
--- OUTSIDE RECORDS SUMMARY | ~2020-02-24 | XMS | Encounter Summary ---
Demographics + + + | Address | [address] [place] [address] Ln | | | [place] [address] | + + + | Home Phone [...] | | | | | [place] [address] | | + + + + + Care Team Providers + +------+ + | Care Fur Cleaner Name | Role | Phone | [...] | 2006 | Visit | Medicine at [facility] | [address] | TYPE II; GENERALIZED | | | | [place] [address] | [facility] [place] | AND UNSPECIFIED | | | | [address] | [address] | ATHEROSCLEROSIS; | | | | Mailcode: MINDY Avis | [phone] | UNSPECIFIED BACKACHE | | | | [address] | | | | | | [place], [place] | | | | | | [address] | | | | | | [phone] | | | +--------+---------+ + + + [...] medication under a medication care agreement thro [facility] and Dr. Lynch. OBJECTIVE: Blood pressure 110/60, [...]
--- OUTSIDE RECORDS SUMMARY | ~2020-02-24 | XMS | Encounter Summary ---
Demographics + + + | Address | [address] [place] [address] Ln | | | [place] [address] | + + + | Home Phone [...] | | | | | [place] [address] | | + + + + + Care Team Providers + +------+ + | Care Weather Forecaster Name | Role | Phone | + [...] as of this encounter Progress Notes Interface, Jtac In - 06/04/2006 3:03 AM PSTCLINIC DATE: 11/30/2000 [facility] SUBJECTIVE: Ms. Toth is a 60-year-old female who presents with a new problem concerning dyspepsia. Previously her occasional heartburn was relieved with vegi-evx-xwqthud antacids but at this point is not. [...] 1 month. Eladio Lynch M.D. ROSIE / [id number] / [id number] / [id number] / Tdocumented in this encounter Plan of Treatment Not on filedocumented as of this encounter Visit Diagnoses Not on filedocumented in this encounter"
--- OUTSIDE RECORDS SUMMARY | ~2020-02-24 | XMS | Encounter Summary ---
Demographics + + + | Address | [address] [place] [address] Ln | | | [place] [address] | + + + | Home Phone [...] | | | | | [place] [address] | | + + + + + Care Team Providers + +------+ + | Care Investment Officer Name | Role | Phone | [...] Clinic | | | | | | [facility], [address] | | | | | | [place], [place] | | | | | | [address] | | | | | | [phone] | | | +--------+ + + + [...] as of this encounter Progress Notes Interface, Licensed Land Surveyor In - 09/09/2006 1:05 AM [facility] DATE: 09/05/97 [facility] SUBJECTIVE: Date of is Fatuma Thomas is [...] remainder of her issues. Eladio Lynch M.D. Process Tank Tender, Family Medicine [facility] documented in this encounter Plan of Treatment Not on filedocumented as of this encounter Visit Diagnoses Not on filedocumented in this encounter
--- OUTSIDE RECORDS SUMMARY | ~2020-02-24 | XMS | Encounter Summary ---
Demographics + + + | Address | [address] [place] [address] Ln | | | [place] [address] | + + + | Home Phone [...] | | | | | [place] [address] | | + + + + + Care Team Providers + +------+ + | Care Information Support Project Manager Name | Role | Phone | [...] as of this encounter Progress Notes Interface, Cutting Machine Tender Decorative In - 06/19/2006 2:27 AM PSTCLINIC DATE: 04/07/2000 [facility] SUBJECTIVE: The patient is here for [...] Remainder of the past medical history includes umy-xksitxa-nhgsvbywn diabetes mellitus, reactive airway disease, and hypertension. [...] one refill. Eladio Lynch M.D. ROSIE / [id number] / [id number] / [id number] / [id number] signed by Interface, Cutting Machine Tender Decorative In at 06/19/2006 2:27 AM PSTdocume nted in this encounter Plan of Treatment Not on filedocumented as of this encounter Visit Diagnoses Not on filedocumented in this encounter"
--- OUTSIDE RECORDS SUMMARY | ~2020-02-24 | XMS | Encounter Summary ---
Demographics + + + | Address | [address] [place] [address] Ln | | | [place] [address] | + + + | Home Phone [...] | | | | | [place] [address] | | + + + + + Care Team Providers + +------+ + | Care Water Carter Name | Role | Phone | + +------+ + | Eladio Lynch MD | PCP | | + +------+ + Encounter Details +--------+ + + + + | Date | Type | Department | Care Team | Description | +--------+ + + + + | 10/21/ | Office | General Internal | Note, Outpatient | Progress Note | | 1997 | Visit-Trans | Medicine [address] | Clinic | | | | jessica | Lizzy Sharp | | | | | | Mailcode: [id number] | | | | | | Outpatient Clinic | | | | | | [facility], [address] | | | | | | [place], [place] | | | | | | [address] | | | | | | [phone] | | | +--------+ + + + [...] as of this encounter Progress Notes Interface, Photocopying Equipment Mechanic In - 09/06/2006 1:02 AM PST CLINIC DATE: 10/21/97 [facility] SUBJECTIVE: Ms. Ramos is here for follow-up of her diabetes. She has been diagnosed with Type 2 diabetes mellitus for the last five years and has been on Glucotrol 20 mg p.o. b.i.d. She brings in her Accu-Chek booklet today, which shows blood sugars in the range of a low of 88 postprandially with fasting blood sugars from 151 to 214, the majority of them ranging in the high 150's to 170's. She has been taking her medication as prescribed. The patient is also concerned about increasing symptoms of asthma. She recently quit smoking (fifteen days ago) with the help of Wellbutrin and also used a nicotine patch for seven days. She feels that she is doing quite well with this despite the fact that her continues to smoke in the house. She does not have any desire to smoke at this point but does feel that her symptoms of asthma have worsened since she quit smoking with increasing cough. She is now using her albuterol inhaler approximately every fifteen to twenty minutes. She denies any shortness of breath at this time but does state that she has symptoms of a mild upper respiratory tract infection including increasing nasal discharge and cough. She denies any fevers, chills, throat pain or ear pain. MEDICATIONS: 1. Glucotrol 20 mg p.o. b.i.d. 2. Wellbutrin. 3. Vicodin. 4. Soma. 5. Ultram. 6. Amitriptyline. 7. Lasix. 8. Claritin. 9. Lipitor. 10. Atrovent. 11. Albuterol. PAST MEDICAL HISTORY: 1. Hypertriglyceridemia, last checked in August 1997 and found to be 238. 2. History of back pain. The patient has seen Dr. Jason Hastings, a neurologist in [place], for this. She is well controlled on vicodin p.r.n. and ultram. 3. Asthma, on albuterol and Atrovent. 4. Diabetes mellitus times five years. SOCIAL HISTORY: The patient has a uhuzq-dnmf-jxrn history of tobacco smoking, which she discontinued fifteen days ago. She lives with her , who is currently smoking tobacco. PHYSICAL EXAMINATION: Her weight is 141 pounds, blood pressure 110/76, temperature 36.9 degrees, respirations 24, pulse 100. The head is normocephalic, atraumatic. The eyes are clear, equal, round, reactive to light and accommodation. The tympanic membranes are clear. The oropharynx is clear. The neck is soft and supple, without lymphadenopathy. The lungs reveal diffuse inspiratory and expiratory wheezes, without crackles. There is fair air movement. The heart has regular rate and rhythm, no murmur, gallop or rub. The abdomen is soft and nontender, without hepatosplenomegaly. The extremities are without clubbing, cyanosis or edema. ASSESSMENT: A zhfaf-qlpc-pihd-old female with: 1. Diabetes mellitus, under poor control at this time. After discussion with Dr. Lynch it was agreed that the addition of Glucophage would assist in obtaining better control of her diabetes. We will start her at 500 mg p.o. b.i.d. and reassess in two weeks regarding the possibility of needing to increase the Glucophage. 2. Asthma, with typical symptoms of smoking cessation increase in asthmatic symptoms. We discussed this with the patient but due to her lung examination today felt it was appropriate to start her on Azmacort at this time, four puffs t.i.d. with the hope of tapering her off this if her symptoms improved. We explained that asthma often gets worse for approximately six weeks to six months after cessation of tobacco smoking. She will now be on Atrovent two puffs t.i.d., albuterol as needed and atrovent four puffs t.i.d. The patient is to return if she has increasing symptoms or becomes short of breath. LABORATORY DATA: Fasting glucose today is 219. PLAN: 1. Glucophage 500 mg p.o. b.i.d. 2. Atrovent four puffs t.i.d. 3. Return to clinic in two weeks for recheck of diabetes and asthma. The patient was seen and examined and the plan discussed with Dr. Eladio Lynch. Minerva Cannon M.D. Resident, Obstetrics and Gynecology Eladio Lynch M.D. Civil Preparedness Coordinator, Family Medicine EM/ documented in this encounter Plan of Treatment Not on filedocumented as of this encounter Visit Diagnoses Not on filedocumented in this encounter"
--- OUTSIDE RECORDS SUMMARY | ~2020-02-24 | XMS | Encounter Summary ---
Demographics + + + | Address | [address] [place] [address] Ln | | | [place] [address] | + + + | Home Phone [...] | | | | | [place] [address] | | + + + + + Care Team Providers + +------+ + | Care Permit Technician Name | Role | Phone | [...] [id number] | | | | | | [place], [place] | | | | | | [address] | | | | | | [phone] | | | +--------+ + + + [...] | | | | | | Re [id number] | | | | | | 01ISOLATE [id number] | | | | | | COLONY(S) [...] + + + + + | [facility] | [address] | [place] [address] | | | PATHOLOGY | [address] | | | + + + + + documented in this encounter Visit Diagnoses Not on filedocumented in this encounter
--- OUTSIDE RECORDS SUMMARY | ~2020-02-24 | XMS | Encounter Summary ---
Demographics + + + | Address | [address] [place] [address] Ln | | | [place] [address] | + + + | Home Phone [...] | | | | | [place] [address] | | + + + + + Care Team Providers + +------+ + | Care Veneer Press Operator Name | Role | Phone | [...] Request | | 2005 | | at [facility] | MD [address] | | | | | [address] | [facility] [place] | | | | | [facility] | [address] | | | | | and Healing, | [phone] | | | | | Building | | | | | | Floor [facility] [place] | | | | | | [address] | | | | | | [phone] | | | +--------+--------+ + + + [...]
--- OUTSIDE RECORDS SUMMARY | ~2020-02-24 | XMS | Encounter Summary ---
Demographics + + + | Address | [address] [place] [address] Ln | | | [place] [address] | + + + | Home Phone [...] | U[place] | | | | | [place] [address] | | + + + + + Care Team Providers + +------+ + | Care Stone Gluer Name | Role | Phone | + [...] as of this encounter Discharge Summaries Interface, Paraffin Plant Sweater Operator In - 08/11/2006 3:[address] [address] [facility] MEDICAL SUMMARY OF HOSPITALIZATION Med Rec [...]
--- OUTSIDE RECORDS SUMMARY | ~2020-02-24 | XMS | Encounter Summary ---
Demographics + + + | Address | [address] [place] [address] Ln | | | [place] [address] | + + + | Home Phone [...] | | | | | [place] [address] | | + + + + + Care Team Providers + +------+ + | Care Color Grinder Name | Role | Phone | + [...] Rd | | | | | | [place] | | | | | | [address] | | | +--------+ + + + [...]
--- OUTSIDE RECORDS SUMMARY | ~2020-02-24 | XMS | Encounter Summary ---
Demographics + + + | Address | [address] [place] [address] Ln | | | [place] [address] | + + + | Home Phone [...] | | | | | [place] [address] | | + + + + + Care Team Providers + +------+ + | Care Slider Assembler Name | Role | Phone | [...] as of this encounter Progress Notes Interface, Wood Gang Sawyer In - 05/08/2006 2:23 AM PDTCLINIC DATE: 06/08/2001 [facility] PROBLEM: Back pain, chronic, 724.2. SUBJECTIVE: [...] counseling. Balta Gavin M.D. WT / HS [id number] / [id number] / [id number] / Tdocumented in this encounter Plan of Treatment Not on filedocumented as of this encounter Visit Diagnoses Not on filedocumented in this encounter"
--- OUTSIDE RECORDS SUMMARY | ~2020-02-24 | XMS | Encounter Summary ---
Demographics + + + | Address | [address] [place] [address] Ln | | | [place] [address] | + + + | Home Phone [...] | | | | | [place] [address] | | + + + + + Care Team Providers + +------+ + | Care Research Center Partner Name | Role | Phone | + [...] Description | +--------+--------+ + + + | 09/26/ | Refill | [place] [facility] | Lynch, Eladio, | Refill Request | | 2006 | | at [facility] | MD [address] | | | | | [address] | [facility] [place] | | | | | [facility] | [address] | | | | | and Healing, | [phone] | | | | | Building | | | | | | Floor [facility] [place] | | | | | | [address] | | | | | | [phone] | | | +--------+--------+ + + + [...]
--- OUTSIDE RECORDS SUMMARY | ~2020-02-24 | XMS | Encounter Summary ---
Demographics + + + | Address | [address] [place] [address] Ln | | | [place] [address] | + + + | Home Phone [...] | | | | | [place] [address] | | + + + + + Care Team Providers + +------+ + | Care Intake Assessor Name | Role | Phone | + [...] | | 2013 | | at [facility] | MD [address] | | | | | [address] | [place], [place] | | | | | [facility] | [address] | | | | | and Healing, | [phone] | | | | | Building | | | | | | Floor [facility] [place] | | | | | | [address] | | | | | | [phone] | | | +--------+--------+ + + + [...]
--- OUTSIDE RECORDS SUMMARY | ~2020-02-24 | XMS | Encounter Summary ---
Demographics + + + | Address | [address] [place] [address] Ln | | | [place] [address] | + + + | Home Phone | | + + + | Preferred Language | Unknown | + + + | Marital Status | | + + + | Anabaptist Affiliation | LINDSAY | + + + [...] | | | | | [place] [address] | | + + + + + Care Team Providers + +------+ + | Care Medical Physiologist Name | Role | Phone | + [...] as of this encounter Progress Notes Interface, Acting Professor In - 07/10/2006 3:11 AM PSTCLINIC DATE: 07/05/1999 [facility] SUBJECTIVE: Ms. Toth comes in [...] for re-exam. Eladio Lynch M.D. Syed / [id number] / [id number] / [id number] / vjr Tdocumented in this encounter Plan of Treatment Not on filedocumented as of this encounter Visit Diagnoses Not on filedocumented in this encounter"
--- OUTSIDE RECORDS SUMMARY | ~2020-02-24 | XMS | Encounter Summary ---
Demographics + + + | Address | [address] [place] [address] Ln | | | [place] [address] | + + + | Home Phone [...] | | | | | [place] [address] | | + + + + + Care Team Providers + +------+ + | Care Programmer Analyst Name | Role | Phone [...] as of this encounter Progress Notes Interface, Audio Production Engineer In - 01/24/2006 3:11 AM PDTCLINIC DATE: 05/01/2003 [facility] SUBJECTIVE: Ms. Toth is here today [...] diabetes control. Eladio Lynch M.D. ROSIE / [id number] / [id number] / [id number] / Tdocumented in this encounter Plan of Treatment Not on filedocumented as of this encounter Visit Diagnoses Not on filedocumented in this encounter"
--- OUTSIDE RECORDS SUMMARY | ~2020-02-24 | XMS | Encounter Summary ---
Demographics + + + | Address | [address] [place] [address] Ln | | | [place] [address] | + + + | Home Phone [...] + + | Author | [facility] | + + + | Organization | [facility] | + + + | Address | Unknown | + + + | Phone | Unavailable | + + + Support + + + + + | Name | Relationship | Address | Phone | + + + + + | Jeni Shirley | ECON | UA | | | | | [place] [address] | | + + + + + Care Team Providers + +------+ + | Care Buncher Hand Name | Role | Phone | [...] as of this encounter Progress Notes Interface, Ladle Car Operator In - 04/18/2006 1:05 AM PDTCLINIC DATE: 10/26/2001 [facility] SUBJECTIVE: She is [...] 2001. Sophie Webster M.D. NIKOLAI / KIMBERLEY [id number] / [id number] / [id number] / [id number] Tdocumented in this encounter Plan of Treatment Not on filedocumented as of this encounter Visit Diagnoses Not on filedocumented in this encounter"
--- OUTSIDE RECORDS SUMMARY | ~2020-02-24 | XMS | Encounter Summary ---
Demographics + + + | Address | [address] [place] [address] Ln | | | [place] [address] | + + + | Home Phone [...] | | | | | [place] [address] | | + + + + + Care Team Providers + +------+ + | Care Cell Lead Name | Role | Phone | + +------+ + PCP | Unavailable | + +------+ + Encounter Details +--------+ + + + + | Date | Type | Department | Care Team | Description | +--------+ + + + + | 10/07/ | Results | [facility] | Eladio Lynch, | | | 1997 | Only | Medicine at [facility] | [address] | | | | | [place] [address] | [place], [place] | | | | | [address] | [address] | | | | | Mailcode: MINDY Albarran | [phone] | | | | | [address] | | | | | | [place], [place] | | | | | | [address] | | | | | | [phone] | | | +--------+ + + + [...] | | + +---------+ + + | [facility] DEPARTMENT OF | | | | | RADIOLOGY | | | | + +---------+ + + documented in this encounter Visit Diagnoses Not on filedocumented in this encounter"
--- OUTSIDE RECORDS SUMMARY | ~2020-02-24 | XMS | Encounter Summary ---
Demographics + + + | Address | [address] [place] [address] Ln | | | [place] [address] | + + + | Home Phone [...] | | | | | [place] [address] | | + + + + + Care Team Providers + +------+ + | Care Sedimentationist Name | Role | Phone | + [...] as of this encounter Progress Notes Interface, Curtain Worker In - 08/07/2006 3:12 AM PSTCLINIC DATE: 08/13/1998 [facility] REASON FOR VISIT: Ms. Toth is [...] reason to do otherwise. Eladio Lynch M.D. Vocational Education Professional, Family Medicine ROSIE/jacobo d ocumented in this encounter Plan of Treatment Not on filedocumented as of this encounter Visit Diagnoses Not on filedocumented in this encounter"
--- OUTSIDE RECORDS SUMMARY | ~2020-02-24 | XMS | Encounter Summary ---
Demographics + + + | Address | [address] [place] [address] Ln | | | [place] [address] | + + + | Home Phone [...] | | | | | [place] [address] | | + + + + + Care Team Providers + +------+ + | Care Shoveler Name | Role | Phone | + [...] Clinic | | | | | | [facility], [address] | | | | | | [place], [place] | | | | | | [address] | | | | | | [phone] | | | +--------+ + + + [...] as of this encounter Progress Notes Interface, Harness Rigger In - 09/06/2006 1:02 AM PST CLINIC DATE: 10/21/97 [facility] SUBJECTIVE: Ms. Ramos is here for [...] seen Dr. Jason Hastings, a neurologist in [place], for this. She is well controlled on vicodin p.r.n. and ultram. 3. Asthma, on albuterol and Atrovent. 4. Diabetes mellitus times five years. SOCIAL HISTORY: The patient has a ropdt-szwa-njxy history of tobacco smoking, which she discontinued [...] without clubbing, cyanosis or edema. ASSESSMENT: A hgwpn-fsdn-yfwn-old female with: 1. Diabetes mellitus, under poor [...] Resident, Obstetrics and Gynecology Eladio Lynch M.D. Lace Machine Operator, Family Medicine EM/ documented in this encounter Plan of Treatment Not on filedocumented as of this encounter Visit Diagnoses Not on filedocumented in this encounter"
--- OUTSIDE RECORDS SUMMARY | ~2020-02-24 | XMS | Encounter Summary ---
Demographics + + + | Address | [address] [place] [address] Ln | | | [place] [address] | + + + | Home Phone [...] | | | | | [place] [address] | | + + + + + Care Team Providers + +------+ + | Care Abalone Diver Name | Role | Phone | + +------+ + | Eladio Lynch MD | PCP | | + +------+ + Encounter Details +--------+ + + + + | Date | Type | Department | Care Team | Description | +--------+ + + + + | 06/05/ | Office | [facility] | Note, [...] as of this encounter Progress Notes Interface, Educational Diagnostician In - 08/13/2006 5:12 AM PSTCLINIC DATE: 06/05/1998 [facility]Y [facility] SUBJECTIVE: Mrs. Toth was seen and examined in follow up in the Hematology Oncology Clinic. Please see the complete dictated Consultation Note dated May 29, 1998, for full details. Mrs. Toth has been doing well in the intervening week. She denies any specific complaints. She has no dyspnea or hemoptysis. She has had no new aches or pains. She has had some episodes of diarrhea which are common for her and are under good control. Mrs. Toth has driven to [place], [place], to try and obtain her outside computed tomography scans and pathology reports. 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 Mrs. Toth, unfortunately has been unable to obtain her computed tomography scan of the chest. We contacted the hospital in [place], [place], on Monday and we were told that they would Fed Ex the films; however, on re-contacting them today, we have been told that the films have been sent by third class mail and have not yet arrived. For this reason, we will repeat her computed tomography scan of the chest today, in order to obtain current accurate staging information. LABORATORY STUDIES: Laboratory evaluations were performed on the during the patient's initial visit and revealed a normal WBC, no anemia, normal platelet counts, and normal serum chemistries including a normal alkaline phosphatase and AST. DIAGNOSTIC STUDIES: A bone scan had been obtained in ([place], [place]. We have a print-out of this scan which is of poor quality and this will probably have to be repeated depending upon the results of the computed tomography scan of the chest. PHYSICAL EXAMINATION: GENERAL: On examination today, the patient is a well-developed, well-nourished white female who is in no acute distress. VITAL SIGNS: Her vital signs show a stable blood pressure of 122/60, a pulse of 100, and she is afebrile. There are no new findings on the physical examination. EXTREMITIES: There is no clubbing, cyanosis, or edema. IMPRESSION: Non-small cell lung cancer. Mrs. Toth is still in the process of having her staging evaluation completed and we will recommend a course of therapy once this has been done. A computed tomography scan of the chest and upper abdomen have been arranged for today. This will be followed up with a bone scan if clinically indicated. A follow up appointment has been made in the Hematology Oncology Clinic in one week to evaluate the results and to discuss therapies. I will arrange for further testing by phone should this be required based on the results of the computed tomography scan. Xuan Taylor M.D. Transplant Case Manager, Medicine HR:to Electronically signed by Interface, Educational Diagnostician In at 0 08/13/2006 5:12 AM PSTdocumented in this encounter Plan of Treatment Not on filedocumented as of this encounter Visit Diagnoses Not on filedocumented in this encounter"
--- OUTSIDE RECORDS SUMMARY | ~2020-02-24 | XMS | Encounter Summary ---
Demographics + + + | Address | [address] [place] [address] Ln | | | [place] [address] | + + + | Home Phone [...] | | | | | [place] [address] | | + + + + + Care Team Providers + +------+ + | Care Operations Manager Station Name | Role | Phone | + [...] as of this encounter Progress Notes Interface, Library Paraprofessional In - 08/20/2006 3:20 PM [facility] CLINIC DATE: 03/24/98 [facility] DATE OF : 1940. SUBJECTIVE: This is [...] for a wound recheck. Eladio Lynch M.D. Manager English, Family Medicine SHB:kristi documented in this encounter Plan of Treatment Not on filedocumented as of this encounter Visit Diagnoses Not on filedocumented in this encounter"
--- OUTSIDE RECORDS SUMMARY | ~2020-02-24 | XMS | Encounter Summary ---
Demographics + + + | Address | [address] [place] [address] Ln | | | [place] [address] | + + + | Home Phone [...] | | | | | [place] [address] | | + + + + + Care Team Providers + +------+ + | Care Director Television News Name | Role | Phone | [...] + + | 11/18/ | Office | [facility] Primary Care | Eladio Lynch, | Unspecified Backache | | 2007 | Visit | at [facility] | MD [address] | (Primary Dx) | | | | [address] | [place], [place] | | | | | [facility] | [address] | | | | | and Healing, | [phone] | | | | | | | | | | | Floor [place], [place] | | | | | | [address] | | | | | | [phone] | | | +--------+---------+ + + + [...]
--- OUTSIDE RECORDS SUMMARY | ~2020-02-24 | XMS | Encounter Summary ---
Demographics + + + | Address | [address] [place] [address] Ln | | | [place] [address] | + + + | Home Phone | | + + + | Preferred Language | Unknown | + + + | Marital Status | | + + + | Pentecostal Affiliation | LINDSAY | + + + [...] | | | | | [place] [address] | | + + + + + Care Team Providers + +------+ + | Care Advertising Agency Manager Name | Role | Phone | [...] | | at [facility] | MD [address] | | | | | [address] | [facility] [place] | | | | | [facility] | [address] | | | | | and Healing, | [phone] | | | | | Building | | | | | | Floor [facility] [place] | | | | | | [address] | | | | | | [phone] | | | +--------+--------+ + + + [...]
--- OUTSIDE RECORDS SUMMARY | ~2020-02-24 | XMS | Encounter Summary ---
Demographics + + + | Address | [address] [place] [address] Ln | | | [place] [address] | + + + | Home Phone [...] | | | | | [place] [address] | | + + + + + Care Team Providers + +------+ + | Care Internal Audit Consultant Name | Role | Phone | [...] as of this encounter Progress Notes Interface, Sheet Metal Former In - 08/16/2006 3:07 AM PSTCLINIC DATE: 05/27/1998 [facility] SUBJECTIVE: Ms. Toth presents as a 57-year-old female moving back into the [facility] after a brief stay in [place] where she was diagnosed with squamous cell carcinoma following ten pounds of weight loss and unexplained nausea with a fairly significant work-up. This has been biopsied and studied and not felt to be metastatic at this time. She currently has a copy of her records in person as well as in [facility] chart at [facility] and referrals both to Oncology and Radiation [...] radiographically, CT and otherwise, are still in [place]. We will continue to follow her and hope to coordinate her care and assume responsibility for control of symptoms that should arise either from the disease or the treatment. 2. Brl-gspowyk-ifjwswqoj diabetes mellitus. PLAN: To refill her Glucophage [...] diabetic care as well. Eladio Lynch M.D. Sfdc Solution Architect, Family Medicine d ocumented in this encounter Plan of Treatment Not on filedocumented as of this encounter Visit Diagnoses Not on filedocumented in this encounter"
--- OUTSIDE RECORDS SUMMARY | ~2020-02-24 | XMS | Encounter Summary ---
Demographics + + + | Address | [address] [place] [address] Ln | | | [place] [address] | + + + | Home Phone [...] | | | | | [place] [address] | | + + + + + Care Team Providers + +------+ + | Care Production Control Scheduler Name | Role | Phone | + [...] Description | +--------+---------+ + + + | 01/09/ | Office | [facility] | Eladio Lycnh, | Unspecified Backache | | 2005 | Visit | Medicine at [facility] | [address] | (Primary Dx) | | | | [place] [address] [facility] | [place], [place] | | | | | [address] | [address] | | | | | Mailcode: MINDY Albarran | [phone] | | | | | [address] | | | | | | [place], [place] | | | | | | [address] | | | | | | [phone] | | | +--------+---------+ + + + [...] + + + | Blood Pressure | 118/50 | 01/09/2006 2:08 PM | | | | | PDT | | + + + + + | Pulse | 112 | 01/09/2006 2:08 PM | | | | | PDT [...] + + + + | Weight | 85.1 kg (187 lb 9.6 | 01/09/2006 2:08 PM | | | | oz) | PDT | | + + + + + | Height | - | - | | + + + + + | Body Mass Index | - | - | | + + + + + documented in this encounter Progress Eladio Mcclelland - 01/13/2006 3:59 PM PDTID:Martha Toth is a 65 y.o female CC: Patient presents with: Refill Request HPI: 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 She is here today for a refil of opoid analgesic medication under a medication care agreement through [facility] and Dr. Chepe alfaro. Physical Examination Blood pressure 118/50, pulse 112, weight 187 lbs 9.6 oz (85.1 kg). no apparent distress ambulatory without assistance or gait abnormality. ASSESSMENT: osteoarthritic back pain PLAN: Refill current medications per medication care agreement @ [facility] ne as above. documented in this encou nter Plan of Treatment Not on filedocumented as of this encounter Visit Diagnoses + + | Diagnosis | + + | Backache, unspecified - Primary | + + documented in this encounter"
--- OUTSIDE RECORDS SUMMARY | ~2020-02-24 | XMS | Encounter Summary ---
Demographics + + + | Address | [address] [place] [address] Ln | | | [place] [address] | + + + | Home Phone [...] | | | | | [place] [address] | | + + + + + Care Team Providers + +------+ + | Care Surface Plate Inspector Name | Role | Phone | + +------+ + PCP | Unavailable | + +------+ + Encounter Details +--------+ + + + + | Date | Type | Department | Care Team | Description | +--------+ + + + + | 04/01/ | Results | [facility] | Eladio Lynch, | | | 2003 | Only | Medicine at [facility] | [address] | | | | | [place] [address] | [place], [place] | | | | | [address] | [address] | | | | | Mailcode: MINDY Albarran | [phone] | | | | | [address] | | | | | | [place], [place] | | | | | | [address] | | | | | | [phone] | | | +--------+ + + + [...] + + documented in this encounter Results NE MAMMOGRAPHY SCREEN BILAT (04/01/2004 7:58 AM PDT) [...]
--- OUTSIDE RECORDS SUMMARY | ~2020-02-24 | XMS | Encounter Summary ---
Demographics + + + | Address | [address] [place] [address] Ln | | | [place] [address] | + + + | Home Phone [...] | | | | | [place] [address] | | + + + + + Care Team Providers + +------+ + | Care Sterile Instrument Technician Name | Role | Phone | [...] as of this encounter Progress Notes Interface, Dry Kiln Burner In - 08/13/2006 5:12 AM PSTCLINIC DATE: [...] good control. Mrs. Toth has driven to [place], [place], to try and obtain her outside computed tomography scans and pathology reports. 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 Mrs. Toth, unfortunately has been unable to obtain her computed tomography scan of the chest. We contacted the hospital in [place], [place], on Monday and we were told [...] A bone scan had been obtained in ([place], [place]. We have a print-out of this [...] the computed tomography scan. Xuan Taylor M.D. Button Machine Operator, Medicine HR:to Electronically signed by Interface, Dry Kiln Burner In at 0 08/13/2006 5:12 AM PSTdocumented in this encounter Plan of Treatment Not on filedocumented as of this encounter Visit Diagnoses Not on filedocumented in this encounter"
--- OUTSIDE RECORDS SUMMARY | ~2020-02-24 | XMS | Encounter Summary ---
Demographics + + + | Address | [address] [place] [address] Ln | | | [place] [address] | + + + | Home Phone [...] | | | | | [place] [address] | | + + + + + Care Team Providers + +------+ + | Care Field Nurse Name | Role | Phone | [...] as of this encounter Progress Notes Interface, Esol Teacher In - 03/05/2005 7:25 PM PDTClinic Date: 11/18/2003 [facility] Subjective: Ms. Toth is here for refill of her controlled substances for chronic back pain. She is using hydrocodone 7.5/750 one p.o. t.i.d. #90. Her problem list also includes reactive airway disease, depression, yri-epbbyvd-gxrahkgjn diabetes mellitus, social stressors, and occasional insomnia. Objective General: She is in no apparent distress. She is alert and oriented x 4. Vital Signs: Her blood pressure is 104/66, pulse is 104, and weight 166 pounds and stable. CBG this morning 126. Lungs: Clear to auscultation. Cardiac: Regular rate and rhythm. Extremities: Without edema. Assessment and Plan 1. Qgd-oflkaaf-fspcpoftx diabetes mellitus. Continue current medications. Her last [...] interest. Eladio Lynch M.D. ROSIE / KIMBERLEY [id number] / [id number] / [id number] / [id number] Tdocumented in this encounter Plan of Treatment Not on filedocumented as of this encounter Visit Diagnoses Not on filedocumented in this encounter"
--- OUTSIDE RECORDS SUMMARY | ~2020-02-24 | XMS | Encounter Summary ---
Demographics + + + | Address | [address] [place] [address] Ln | | | [place] [address] | + + + | Home Phone | | + + + | Preferred Language | Unknown | + + + | Marital Status | | + + + | Mu-Ism Affiliation | LINDSAY | + + + | Race | White | + + + | Ethnic Group | Not or | + + + Author + + + | Author | [facility] | + + + | Organization | [facility] | + + + | Address | Unknown | + + + | Phone | Unavailable | + + + Support + + + + + | Name | Relationship | Address | Phone | + + + + + | Jeni Shirley | ECON | UA | | | | | [place] [address] | | + + + + + Care Team Providers + +------+ + | Care Golf Ball Winder Name | Role | Phone | + [...] as of this encounter Progress Notes Interface, Benzene Operator In - 05/25/2006 1:07 AM PDTCLINIC DATE: 02/08/2001 [facility] SUBJECTIVE: Ms. Toth is here for refill [...] pain. We will refill her medications. 2. Pun-jcuwjgp-jaivplwmr diabetes mellitus. We will continue to promote success with respect to diet and exercise. 3. Coronary arteriosclerosis. She is 6 months to date with smoking cessation and doing well. Eladio Lynch M.D. ROSIE / KIMBERLEY [id number] / [id number] / [id number] / Tdocumented in this encounter Plan of Treatment Not on filedocumented as of this encounter Visit Diagnoses Not on filedocumented in this encounter"
--- OUTSIDE RECORDS SUMMARY | ~2020-02-24 | XMS | Encounter Summary ---
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 1 each 0 montelukast (SINGULAIR) [...] MEDICAL SUPPLY (RX DURABLE M EDICAL EQUIPMENT [place]), PULSE OXIMETRY - BACK OFFICE F/u one month, I discussed my lack of understanding for her home O2 in [facility]. Without Sleep a pnea. O2 sat 96 [...] [facility] | [address] | [place] [address] | | | SERVICES, JR | ABHI [...] influenced by a variety of environmental | [facility] | | influences, age, gender and ethnicity. The supplied reference limits | LABORATORY | | are based on published values utilizing a similar TSH assay, and | SERVICES, CORE | | should be interpreted with caution. Test now performed at [facility]. New | | | method effective 06/19/13. Age-adjusted reference ranges are in use. | | + + + + + + + + | Performing | Address | City/State/Zipcode | Phone Number | | Organization | | | | + + + + + | [facility] | [address] | [place] [address] | | | JR MARTINEZ | ABHI [...] | | | LABORATORY | | | FREN[place] | | | SERVICES, | | | [...] | + + + + + | [facility] | [address] | [place] [address] | | | SERVICES, [facility] | [address] | | | + [...] | | If you are | | [facility] | | | | screening for [...] + | [facility] - | [address] | [place] [address] | | | [place] | | | | + + + [...]
--- OUTSIDE RECORDS SUMMARY | ~2020-02-24 | XMS | Encounter Summary ---
Demographics + + + | Address | [address] [place] [address] Ln | | | [place] [address] | + + + | Home Phone [...] | | | | | [place] [address] | | + + + + + Care Team Providers + +------+ + | Care Nonprofit Manager Name | Role | Phone | [...] | | 2013 | Outreach | at [facility] | MD [address] | mellitus | | | | [address] | [place], [place] | | | | | [facility] | [address] | | | | | and Healing, | [phone] | | | | | | | | | | | Floor [place], [place] | | | | | | [address] | | | | | | [phone] | | | +--------+ + + + [...]
--- OUTSIDE RECORDS SUMMARY | ~2020-02-24 | XMS | Encounter Summary ---
Demographics + + + | Address | [address] [place] [address] Ln | | | [place] [address] | + + + | Home Phone [...] | | | | | [place] [address] | | + + + + + Care Team Providers + +------+ + | Care Client Technologies Specialist Name | Role | Phone | [...] + + | 07/23/ | Office | [facility] Primary Care | Eladio Lynch, | Tobacco Abuse; | | 2006 | Visit | at [facility] | MD [address] | Depressive Disorder, | | | | [address] | [place], [place] | not Elsewhere | | | | [facility] | [address] | Classified; DM w/o | | | | and Healing, | [phone] | Complication Type | | | | Building | | II; Insomnia; | | | | Floor [place], [place] | | Unspecified Backache | | | | [address] | | | | | | [phone] | | | +--------+---------+ + + + [...] medications per medication care agreement @ [facility], family medicine as above. documented in [...]
--- OUTSIDE RECORDS SUMMARY | ~2020-02-24 | XMS | Encounter Summary ---
Demographics + + + | Address | [address] [place] [address] Ln | | | [place] [address] | + + + | Home Phone [...] | | | | | [place] [address] | | + + + + + Care Team Providers + +------+ + | Care Physician Office Rep Name | Role | Phone | + [...] | 2000 | Only | Medicine at [facility] | [address] | | | | | Uriah [address] | [place], [place] | | | | | [address] | [address] | | | | | Mailcode: MINDY Albarran | [phone] | | | | | Bobby Reaves | | | | | | [place], [place] | | | | | | [address] | | | | | | [phone] | | | +--------+ + + + [...] | + +--------+ + + + | PSYCHOLOGIST DEVELOPMENTAL CYTOLOGY (PAP) | Routin | 08/08/2000 | [...] | + + + + + | [facility] | [address] | [place] [address] | | | LABORATORY | | | | + + + + + PSYCHOLOGIST DEVELOPMENTAL CYTOLOGY (PAP) (08/08/2000) + + + + + + | Component | Value | Ref Range | Performed | Pathologist | | | | | At | Signature | + + + + + + | PSYCHOLOGIST DEVELOPMENTAL | SOURCE OF SPECIMEN: | | [facility] | | | CYTOLOGY | CervicalReason for | | DEPARTMENT | | | | Examination: Routine | | OF | | | | Pap SmearCLINICAL | | PATHOLOGY | | | | HISTORY: Quto-grlmpr-wbt | | | | | | many [...] + + + + | [facility] | [address] | [place] [address] | | | PATHOLOGY | [address] | | | + + + + + | [facility] DEPARTMENT [facility] | [address] | [place] [address] | | | PATHOLOGY | [address] | | | + + + + + documented in this encounter Visit Diagnoses Not on filedocumented in this encounter"
--- OUTSIDE RECORDS SUMMARY | ~2020-02-24 | XMS | Encounter Summary ---
Demographics + + + | Address | [address] [place] [address] Ln | | | [place] [address] | + + + | Home Phone [...] | | | | | [place] [address] | | + + + + + Care Team Providers + +------+ + | Care Binder Fixer Name | Role | Phone | + [...] as of this encounter Progress Notes Interface, Appliance Fixer In - 08/20/2006 3:20 PM [facility] DATE: 03/23/98 [facility] SUBJECTIVE: Patient is here in followup of [...] agreed with current strategy. Kofi Mejia M.D. Breast Puller, Family Medicine SAF:sacha documented in this encounter Plan of Treatment Not on filedocumented as of this encounter Visit Diagnoses Not on filedocumented in this encounter"
--- OUTSIDE RECORDS SUMMARY | ~2020-02-24 | XMS | Encounter Summary ---
Demographics + + + | Address | [address] [place] [address] Ln | | | [place] [address] | + + + | Home Phone [...] | | | | | [place] [address] | | + + + + + Care Team Providers + +------+ + | Care Plant Puller Name | Role | Phone | [...]
--- OUTSIDE RECORDS SUMMARY | ~2020-02-24 | XMS | Encounter Summary ---
Demographics + + + | Address | [address] [place] [address] Ln | | | [place] [address] | + + + | Home Phone [...] | | | | | [place] [address] | | + + + + + Care Team Providers + +------+ + | Care Returned Goods Sorter Name | Role | Phone | [...] of this encounter Progress Notes Interface, Assistant Professor Of Biology In - 03/05/2006 1:12 AM PDTCLINIC DATE: 07/23/2002 [facility] SUBJECTIVE: Ms. Toth is [...] counseling referral. Eladio Lynch M.D. [facility]IE / [id number] / [id number] / [id number] / Tdocumented in this encounter Plan of Treatment Not on filedocumented as of this encounter Visit Diagnoses Not on filedocumented in this encounter"
--- OUTSIDE RECORDS SUMMARY | ~2020-02-24 | XMS | Encounter Summary ---
Demographics + + + | Address | [address] [place] [address] Ln | | | [place] [address] | + + + | Home Phone [...] | | | | | [place] [address] | | + + + + + Care Team Providers + +------+ + | Care Prime Broker Name | Role | Phone | + [...] | | 2013 | Outreach | at [facility] | MD [address] | | | | | [address] | [place], [place] | | | | | [facility] | [address] | | | | | and Serena, | [phone] | | | | | [facility] | | | | | | Floor [place], [place] | | | | | | [address] | | | | | | [phone] | | | +--------+ + + + [...]
--- OUTSIDE RECORDS SUMMARY | ~2020-02-24 | XMS | Encounter Summary ---
Demographics + + + | Address | [address] [place] [address] Ln | | | [place] [address] | + + + | Home Phone [...] | | | | | [place] [address] | | + + + + + Care Team Providers + +------+ + | Care Executive Director Name | Role | Phone | [...] as of this encounter Progress Notes Interface, Resource Paraprofessional In - 04/06/2005 5:04 AM PDT [id number] TARI [facility] Clinic Date: 03/14/2005 Clinic: [facility] Subjective: Ms. Toth is here for [...] to review diabetes specifically. Eladio Lynch M.D. [facility] / [id number] / [id number] / [id number] / [id number] Electronically signed by Eladio Lynch 04-05-2005 09:49:36 AM documented i n this encounter Plan of Treatment Not on filedocumented as of this encounter Visit Diagnoses Not on filedocumented in this encounter"
--- OUTSIDE RECORDS SUMMARY | ~2020-02-24 | XMS | Encounter Summary ---
Demographics + + + | Address | [address] [place] [address] Ln | | | [place] [address] | + + + | Home Phone [...] | | | | | [place] [address] | | + + + + + Care Team Providers + +------+ + | Care Ingredient Handler Name | Role | Phone | + [...] Request | | 2012 | | at [facility] | MD [address] | | | | | [address] | [place], [place] | | | | | [facility] | [address] | | | | | and Healing, | [phone] | | | | | Building | | | | | | Floor [facility] [place] | | | | | | [address] | | | | | | [phone] | | | +--------+--------+ + + + [...]
--- OUTSIDE RECORDS SUMMARY | ~2020-02-24 | XMS | Encounter Summary ---
Demographics + + + | Address | [address] [place] [address] Ln | | | [place] [address] | + + + | Home Phone | | + + + | Preferred Language | Unknown | + + + | Marital Status | | + + + | Zoroastrianism Affiliation | LINDSAY | + + + [...] | | | | | [place] [address] | | + + + + + Care Team Providers + +------+ + | Care Legal Archivist Name | Role | Phone | + [...] as of this encounter Progress Notes Interface, Nightman In - 05/16/2006 3:05 AM PDTCLINIC DATE: 03/16/2001 [facility] SUBJECTIVE: Ms. Toth is a 60-year-old [...] time. Eladio Lynch M.D. ROSIE / [place]IMBER[place] [id number] / [id number] / [id number] / Tdocumented in this encounter Plan of Treatment Not on filedocumented as of this encounter Visit Diagnoses Not on filedocumented in this encounter"
--- OUTSIDE RECORDS SUMMARY | ~2020-02-24 | XMS | Encounter Summary ---
Demographics + + + | Address | [address] [place] [address] Ln | | | [place] [address] | + + + | Home Phone [...] | | | | | [place] [address] | | + + + + + Care Team Providers + +------+ + | Care Instructional Technology Coordinator Name | Role | Phone | [...] as of this encounter Progress Notes Interface, Machining Engineer In - 03/05/2005 5:06 PM PDTClinic [...] up at that point. Eladio Lynch M.D. [facility] / [id number] / [id number] / [id number] / Tdocumented in this encounter Plan of Treatment Not on filedocumented as of this encounter Visit Diagnoses Not on filedocumented in this encounter"
--- OUTSIDE RECORDS SUMMARY | ~2020-02-24 | XMS | Encounter Summary ---
Demographics + + + | Address | [address] [place] [address] Ln | | | [place] [address] | + + + | Home Phone [...] | | | | | [place] [address] | | + + + + + Care Team Providers + +------+ + | Care School Cafeteria Cook Head Name | Role | Phone | + [...] as of this encounter Progress Notes Interface, Executive Search Consultant In - 07/02/2006 3:12 AM PSTCLINIC DATE: 10/08/[address] [facility] SUBJECTIVE: Ms. Toth is here for followup of her right elbow diagnosed previously with epicondylitis lateralis with a significant history of sfx-sovsxpm-loqzopgsf diabetes mellitus. She is right-hand dominant. This [...] for a true rest. Eladio Lynch M.D. [facility] / [id number] / [id number] / [id number] / [id number] Tdocumented in this encounter Plan of Treatment Not on filedocumented as of this encounter Visit Diagnoses Not on filedocumented in this encounter"
--- OUTSIDE RECORDS SUMMARY | ~2020-02-24 | XMS | Encounter Summary ---
Demographics + + + | Address | [address] [place] [address] Ln | | | [place] [address] | + + + | Home Phone [...] | | | | | [place] [address] | | + + + + + Care Team Providers + +------+ + | Care Mechanical Supervisor Name | Role | Phone | [...] | | 2013 | Outreach | at [facility] | MD [address] | | | | | [address] | [place], [place] | | | | | [facility] | [address] | | | | | and Serena, | [phone] | | | | | [facility] | | | | | | Floor [place], [place] | | | | | | [address] | | | | | | [phone] | | | +--------+ + + + [...]
--- OUTSIDE RECORDS SUMMARY | ~2020-02-24 | XMS | Encounter Summary ---
Demographics + + + | Address | [address] [place] [address] Ln | | | [place] [address] | + + + | Home Phone [...] | | | | | [place] [address] | | + + + + + Care Team Providers + +------+ + | Care Business Development Consultant Name | Role | Phone | [...] | | Gynecology | | MD [address] | Generalists | | | | | Post-menopau | [address] | [address] | | | | | thu bleeding | [facility] | [place] | | | | | Procedures | [place] | Ryan | | | | | CONSULT TO | [address] | [address] | | | | | [facility] - | Phone: | floor | | | | | [facility] | [phone] | [place], [place] | | | | | WOMEN'S | Fax: | [address] | | | | | HEALTH | [phone] | Phone: | | | | | | | [phone] | | | | | | | Fax: | | | | | | | [phone] | +--------+--------+ + + + + Reason [...] + + | 08/16/ | Office | [facility] Primary Care | Alannah Saab MD | Post-menopausal | | 2013 | Visit | at [facility] | [address] | bleeding (Primary | | | | [address] | [place], [place] | Dx) | | | | [facility] | [address] | | | | | and Healing, | [phone] | | | | | [facility] | | | | | | Floor [place], [place] | | | | | | [address] | | | | | | [phone] | | | +--------+---------+ + + + [...] to a doctor about this - last LAMINATION INSPECTOR exam was around age 67. No hx [...] MISCELLANEOUS MEDICAL SUPPLY (RX DURABLE MEDICAL EQUIPMENT [place]), Home O2., Disp: 1 each, Rfl : 0 montelukast (SINGULAIR) 10 mg oral tablet, Take 1 tablet by mouth once daily in the evening ., Disp: 30 tablet, Rfl: 12 omeprazole 20 mg oral capsule,delayed release(DR/EC), Take 1 capsule by mouth once daily., Disp: , Rfl: Current Medications: reviewed & updated in [facility] OBJECTIVE: BP 110/60 | Pulse 84 [...] agreeable to expediting care by referral to LAMINATION INSPECTOR for evaluation and pedro luis tment deployment. Referral made today. documented in this encou nter Plan of Treatment Not on filedocumented as of this encounter Visit Diagnoses + + | Diagnosis | + + | Post-menopausal bleeding - Primary Postmenopausal bleeding | + + documented in this encounter"
--- OUTSIDE RECORDS SUMMARY | ~2020-02-24 | XMS | Encounter Summary ---
Demographics + + + | Address | [address] [place] [address] Ln | | | [place] [address] | + + + | Home Phone [...] | | | | | [place] [address] | | + + + + + Care Team Providers + +------+ + | Care Director Of Integrated Marketing Name | Role | Phone | + [...] + + | 09/17/ | Office | [facility] Primary Care | Eladio Lynch, | Unspecified Backache | | 2007 | Visit | at [facility] | MD [address] | (Primary Dx); | | | | [address] | [place], [place] | Generalized and | | | | [facility] | [address] | Unspecified | | | | and Healing, | [phone] | Atherosclerosis; DM | | | | Building | | w/o Complication | | | | Floor [place], [place] | | Type II; Neuropathy, | | | | [address] | | Lower Extremity | | | | [phone] | | | +--------+---------+ + + + [...] 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 Presently she has plan to move to [...]
--- OUTSIDE RECORDS SUMMARY | ~2020-02-24 | XMS | Encounter Summary ---
Demographics + + + | Address | [address] [place] [address] Ln | | | [place] [address] | + + + | Home Phone [...] | | | | | [place] [address] | | + + + + + Care Team Providers + +------+ + | Care Photography Instructor Name | Role | Phone | [...] + + | 11/20/ | Refill | [facility] Primary Care | Eladio Lynch, | Refill Request; | | 2006 | | at [facility] | MD [address] | Medication | | | | [address] | [place], [place] | management | | | | [facility] | [address] | | | | | and Healing, | [phone] | | | | | [facility] | | | | | | Floor [place], [place] | | | | | | [address] | | | | | | [phone] | | | +--------+--------+ + + + [...]
--- OUTSIDE RECORDS SUMMARY | ~2020-02-24 | XMS | Encounter Summary ---
Demographics + + + | Address | [address] [place] [address] Ln | | | [place] [address] | + + + | Home Phone [...] | | | | | [place] [address] | | + + + + + Care Team Providers + +------+ + | Care Ditcher Name | Role | Phone | + [...] visit | | 2013 | | at [facility] | [address] | | | | | [address] | [place], [place] | | | | | [facility] | [address] | | | | | and Healing, | [phone] | | | | | | | | | | | Floor [place], [place] | | | | | | [address] | | | | | | [phone] | | | +--------+ + + + [...]
--- OUTSIDE RECORDS SUMMARY | ~2020-02-24 | XMS | Encounter Summary ---
Demographics + + + | Address | [address] [place] [address] Ln | | | [place] [address] | + + + | Home Phone [...] | | | | | [place] [address] | | + + + + + Care Team Providers + +------+ + | Care Wing Scorer Name | Role | Phone | + [...] | | 2013 | Outreach | at [facility] | MD [address] | | | | | [address] | [place], [place] | | | | | [facility] | [address] | | | | | and Serena, | [phone] | | | | | [facility] | | | | | | Floor [place], [place] | | | | | | [address] | | | | | | [phone] | | | +--------+ + + + [...]
--- OUTSIDE RECORDS SUMMARY | ~2020-02-24 | XMS | Encounter Summary ---
Demographics + + + | Address | [address] [place] [address] Ln | | | [place] [address] | + + + | Home Phone [...] | | | | | [place] [address] | | + + + + + Care Team Providers + +------+ + | Care Linux Security Administrator Name | Role | Phone | [...] floor | | | | | | [place], [place] | | | | | | [address] | | | | | | [phone] | | | +--------+ + + + [...] as of this encounter Discharge Summaries Interface, Cycle Manager In - 08/23/2006 2:03 AM PST [address] [address] [facility] MEDICAL SUMMARY OF HOSPITALIZATION Med Rec No.: [id number] Admission Date: 03/21/98 Name: Martha Toth Discharge Date: 03/22/98 STAFF PHYSICIAN: Adams Gallo M.D. Rotary Cutter Feeder, Emergency Medicine PRINCIPAL FINAL DIAGNOSIS: Perineal abscess [...] perineal area. This area was erythematous and wireless internet installer an 8 x 6 cm distribution. This [...] p.r.n. pain. DISCHARGE INSTRUCTION(S): Activity: Normal. Diet: [place] [employer] (A.D.A.) 2,000 kilocalories. Followup: At [facility] in 24 to 72 hours. Ever Elizalde M.D. Resident, Emergency Medicine Adams Gallo M.D. Rotary Cutter Feeder, Emergency [facility] P FAX: [facility] cc: documented in this encounter Plan of Treatment Not on filedocumented as of this encounter Visit Diagnoses Not on filedocumented in this encounter"
--- OUTSIDE RECORDS SUMMARY | ~2020-02-24 | XMS | Encounter Summary ---
Demographics + + + | Address | [address] [place] [address] Ln | | | [place] [address] | + + + | Home Phone [...] | | | | | [place] [address] | | + + + + + Care Team Providers + +------+ + | Care Woods Overseer Name | Role | Phone | + [...] + + | 02/17/ | Office | [facility] Primary Care | Eladio Lynch, | Unspecified Backache | | 2007 | Visit | at [facility] | MD [address] | (Primary Dx) | | | | [address] | [place], [place] | | | | | [facility] | [address] | | | | | and Serena, | [phone] | | | | | | | | | | | [place], [place] | | | | | | [address] | | | | | | [phone] | | | +--------+---------+ + + + [...] for AC, as she is moving to [facility]. Patient Active Problem [...] current medications per medication care agreement @ [facility], family medicine as above. Final refil unless plans change. documented in this encou nter Plan of Treatment Not on filedocumented as of this encounter Visit Diagnoses + + | Diagnosis | + + | Backache, unspecified - Primary | + + documented in this encounter
--- OUTSIDE RECORDS SUMMARY | ~2020-02-24 | XMS | Encounter Summary ---
Demographics + + + | Address | [address] [place] [address] Ln | | | [place] [address] | + + + | Home Phone [...] | | | | | [place] [address] | | + + + + + Care Team Providers + +------+ + | Care Mica Patcher Name | Role | Phone | [...] pain | | 2006 | | at [facility] | MD [address] | | | | | [address] | [facility] [place] | | | | | [facility] | [address] | | | | | and Serena, | [phone] | | | | | [facility] | | | | | | Floor [facility] [place] | | | | | | [address] | | | | | | [phone] | | | +--------+ + + + [...]
--- OUTSIDE RECORDS SUMMARY | ~2020-02-24 | XMS | Encounter Summary ---
Demographics + + + | Address | [address] [place] [address] Ln | | | [place] [address] | + + + | Home Phone [...] | | | | | [place] [address] | | + + + + + Care Team Providers + +------+ + | Care Plastics Nurse Name | Role | Phone | [...] as of this encounter Progress Notes Interface, Pega Developer In - 04/05/2006 3:10 AM PDTCLINIC DATE: 01/22/2002 [facility] SUBJECTIVE: Ms. Toth is here for monthly refill of her pain medications that include Vicodin 1 p.o. q.i.d. with Soma 1 p.o. t.i.d. She has a problem list that includes 1. Reactive airway disease. 2. Cyo-xhtuybs-mvfqceozi diabetes mellitus. 3. Pain syndrome. 4. Dyspepsia. [...] b.i.d. Eladio Lynch M.D. ROSIE / [place]IMBERLEY [id number] / [id number] / [id number] / Tdocumented in this encounter Plan of Treatment Not on filedocumented as of this encounter Visit Diagnoses Not on filedocumented in this encounter"
--- OUTSIDE RECORDS SUMMARY | ~2020-02-24 | XMS | Encounter Summary ---
Demographics + + + | Address | [address] [place] [address] Ln | | | [place] [address] | + + + | Home Phone [...] | | | | | [place] [address] | | + + + + + Care Team Providers + +------+ + | Care Deputy Chief Magistrate Name | Role | Phone | + [...] of this encounter Progress Notes Interface, Supervisor Pigment Making In - 07/25/2006 5:07 AM PSTCLINIC DATE: 01/18/1999 [facility] IDENTIFICATION: Martha is a 68-year-old [place] female here for follow up of chronic [...]
--- OUTSIDE RECORDS SUMMARY | ~2020-02-24 | XMS | Encounter Summary ---
Demographics + + + | Address | [address] [place] [address] Ln | | | [place] [address] | + + + | Home Phone [...] | | | | | [place] [address] | | + + + + + Care Team Providers + +------+ + | Care Jump Iron Machine Presser Name | Role | Phone | + [...] as of this encounter Progress Notes Interface, Appeals Representative In - 07/07/2006 5:02 AM PSTCLINIC DATE: 08/16/1999 [facility] SUBJECTIVE: Ms. Toth is here generally [...] auscultation. Her ankle is as above. ASSESSMENT: Jqv-ydfnzjx-zoqcglpzh diabetes mellitus. PLAN 1. Continue current regimen [...] one month. Eladio Lynch M.D. Syed / [id number] / [id number] / [id number] / Tdocumented in this encounter Plan of Treatment Not on filedocumented as of this encounter Visit Diagnoses Not on filedocumented in this encounter"
--- OUTSIDE RECORDS SUMMARY | ~2020-02-24 | XMS | Encounter Summary ---
Demographics + + + | Address | [id number] [place] [address] Ln | | | [place] [address] | + + + | Home Phone [...] | | | | | [place] [address] | | + + + + + Care Team Providers + +------+ + | Care Community Resource Consultant Name | Role | Phone | [...] + + | 10/08/ | Telephone | [facility] Primary [facility] | Eladio Lynch, | COPD - Chronic | | 2013 | | at [facility] | [place] [address] | obstructive | | | | [address] | [place], [place] | pulmonary disease; | | | | [facility] | [address] | White Blood Cell | | | | and Healing, | [phone] | Count Abnormal | | | | | | | | | | Floor [place], [place] | | | | | | [address] | | | | | | [phone] | | | +--------+ + + + [...]
--- OUTSIDE RECORDS SUMMARY | ~2020-02-24 | XMS | Encounter Summary ---
Demographics + + + | Address | [address] [place] [address] Ln | | | [place] [address] | + + + | Home Phone [...] | | | | | [place] [address] | | + + + + + Care Team Providers + +------+ + | Care Molder Foam Rubber Name | Role | Phone | + [...] as of this encounter Progress Notes Interface, Plastics Nurse In - 06/02/2006 3:12 AM PDTCLINIC DATE: 12/28/2000 [facility] SUBJECTIVE: Martha is here for [...] Her significant other currently has work in [employer] for the last 2 weeks. She prepares [...] hand-written scripts. Eladio Lynch M.D. ROSIE / [id number] / [id number] / [id number] / Tdocumented in this encounter Plan of Treatment Not on filedocumented as of this encounter Visit Diagnoses Not on filedocumented in this encounter"
--- OUTSIDE RECORDS SUMMARY | ~2020-02-24 | XMS | Encounter Summary ---
Demographics + + + | Address | [address] [place] [address] Ln | | | [place] [address] | + + + | Home Phone [...] | | | | | [place] [address] | | + + + + + Care Team Providers + +------+ + | Care County Administrator Name | Role | Phone | [...] as of this encounter Progress Notes Interface, Eap Specialist In - 07/15/2006 5:04 AM PSTCLINIC DATE: 05/28/1999 [facility] SUBJECTIVE: Ms. Toth is a 58-year-old woman who underwent resection of a non-small cell lung cancer about a year ago at [facility]. The pathology showed a squamous cell [...] [place]. The patient has good chance of senior care survival with a recurrence rate of about 30% over the next five years. She has been strongly encouraged to discontinue smoking and has been referred both to our Stop Smoking Program ,as well as to [facility] [employer] [facility]. She states that she [...] cessation of smoking. Xuan Taylor M.D. / [id number] / [id number] / [id number] / cc: Teresa Kelly [facility]. doileana oleary in this encounter Plan of Treatment Not on filedocumented as of this encounter Visit Diagnoses Not on filedocumented in this encounter"
--- OUTSIDE RECORDS SUMMARY | ~2020-02-24 | XMS | Encounter Summary ---
Demographics + + + | Address | [address] [place] [address] Ln | | | [place] [address] | + + + | Home Phone [...] | UA | | | | | [place] [address] | | + + + + + Care Team Providers + +------+ + | Care Sales Operations Assistant Name | Role | Phone | [...] 2005 | Visit | Medicine at [facility] | [address] | (Primary Dx) | | | | [place] [address] [facility] | [place], [place] | | | | | [address] | [address] | | | | | Mailcode: MINDY Albarran | [phone] | | | | | [address] | | | | | | [place], [place] | | | | | | [address] | | | | | | [phone] | | | +--------+---------+ + + + [...] medication under a medication care agreement through [facility] and Dr. Chepe alfaro. Physical Examination Blood pressure 118/50, pulse 112, weight 187 lbs 9.6 oz (85.1 kg). no apparent distress ambulatory without assistance or gait abnormality. ASSESSMENT: osteoarthritic back pain PLAN: Refill current medications per medication care agreement @ [facility] medici ne as above. documented in this encou nter Plan of Treatment Not on filedocumented as of this encounter Visit Diagnoses + + | Diagnosis | + + | Backache, unspecified - Primary | + + documented in this encounter"
--- OUTSIDE RECORDS SUMMARY | ~2020-02-24 | XMS | Encounter Summary ---
Demographics + + + | Address | [address] [place] [address] Ln | | | [place] [address] | + + + | Home Phone [...] | | | | | [place] [address] | | + + + + + Care Team Providers + +------+ + | Care Chief Of Pediatric Urology Name | Role | Phone | + +------+ + PCP | Unavailable | + +------+ + Encounter Details +--------+ + + + + | Date | Type | Department | Care Team | Description | +--------+ + + + + | 03/14/ | Office | [facility] | Eladio Lynch, | | | 2004 | Visit-ECX | Medicine at [facility] | [address] | | | | | [place] [address] | [place], [place] | | | | | [address] | [address] | | | | | Mailcode: MINDY Albarran | [phone] | | | | | [address] | | | | | | [place], [place] | | | | | | [address] | | | | | | [phone] | | | +--------+ + + + [...]
--- OUTSIDE RECORDS SUMMARY | ~2020-02-24 | XMS | Encounter Summary ---
Demographics + + + | Address | [address] [place] [address] Ln | | | [place] [address] | + + + | Home Phone [...] | | | | | [place] [address] | | + + + + + Care Team Providers + +------+ + | Care Data Management Associate Name | Role | Phone | [...] of this encounter Progress Notes Interface, Fork Lift Truck Operator In - 01/28/2006 3:12 AM PDTCLINIC DATE: 02/25/2003 [facility] SUBJECTIVE: Ms. Toth has multiple medical [...] CBG is 200. ASSESSMENT AND PLAN 1. Xgb-ldudtyb-tqegowlmo diabetes mellitus. We will increase her Avandia at 8 mg daily. Check hemoglobin A1c and fasting lipid panel. Follow up in 1 month. 2. Chronic pain. Refill medications x 1 month. Eladio Lynch M.D. ROSIE / KIMBERLEY [id number] / [id number] / [id number] / Tdocumented in this encounter Plan of Treatment Not on filedocumented as of this encounter Visit Diagnoses Not on filedocumented in this encounter"
--- OUTSIDE RECORDS SUMMARY | ~2020-02-24 | XMS | Encounter Summary ---
Demographics + + + | Address | [address] [place] [address] Ln | | | [place] [address] | + + + | Home Phone [...] | | | | | [place] [address] | | + + + + + Care Team Providers + +------+ + | Care Bee Raiser Name | Role | Phone | + [...] as of this encounter Progress Notes Interface, Mechanical Drawing Teacher In - 06/06/2006 3:09 AM PSTCLINIC DATE: 10/13/2000 [facility] SUBJECTIVE: Ms. Toth is a 59-year-old female with a history of ixs-ujkqnxh-oddkiaozo diabetes mellitus who is here for general [...] mildly edematous with serous discharge. ASSESSMENT 1. Nen-glmwgri-uenaisukj diabetes mellitus. Congratulated her for smoking cessation. [...] 1 month. Eladio Lynch M.D. ROSIE / [id number] / [id number] / [id number] / [id number] Tdocumented in this encounter Plan of Treatment Not on filedocumented as of this encounter Visit Diagnoses Not on filedocumented in this encounter"
--- OUTSIDE RECORDS SUMMARY | ~2020-02-24 | XMS | Encounter Summary ---
Demographics + + + | Address | [address] [place] [address] Ln | | | [place] [address] | + + + | Home Phone [...] | | | | | [place] [address] | | + + + + + Care Team Providers + +------+ + | Care Singing Teacher Name | Role | Phone | + +------+ + | Eladio Lynch MD | PCP | | + +------+ + Encounter Details +--------+ + + + + | Date | Type | Department | Care Team | Description | +--------+ + + + + | 01/30/ | Ancillary | Registration [id number] | Eladio Lynch, | | | 2006 | Registratio | [facility] [address] | [address] | | | | n | Justin Mailcode: [id number] | [place], [place] | | | | | [place], [place] | [address] | | | | | [address] | [phone] | | | | | [phone] | | | +--------+ + + + [...]
--- OUTSIDE RECORDS SUMMARY | ~2020-02-24 | XMS | Encounter Summary ---
Demographics + + + | Address | [address] [place] [address] Ln | | | [place] [address] | + + + | Home Phone | | + + + | Preferred Language | Unknown | + + + | Marital Status | | + + + | Denominational Affiliation | LINDSAY | + + + [...] | | | | | [place] [address] | | + + + + + Care Team Providers + +------+ + | Care Tumbler Dyeing Machine Operator Name | Role | Phone | + +------+ + | Eladio Lynch MD | PCP | | + +------+ + Encounter Details +--------+ + + + + | Date | Type | Department | Care Team | Description | +--------+ + + + + | 01/30/ | Ancillary | Registration [address]181 | Eladio Lynch, | | | 2006 | Registratio | [facility] [address] | [address] | | | | n | Justin Mailcode: [id number] | [place], [place] | | | | | [place], [place] | [address] | | | | | [address] | [phone] | | | | | [phone] | | | +--------+ + + + [...]
--- OUTSIDE RECORDS SUMMARY | ~2020-02-24 | XMS | Encounter Summary ---
Demographics + + + | Address | [address] [place] [address] Ln | | | [place] [address] | + + + | Home Phone [...] | | | | | [place] [address] | | + + + + + Care Team Providers + +------+ + | Care Camper Assembler Name | Role | Phone | [...] as of this encounter Progress Notes Interface, Medical Information Specialist In - 06/26/2006 5:25 AM PSTCLINIC DATE: 12/27/1999 [facility] SUBJECTIVE: Ms. Toth returns for refill [...] month. Eladio Lynch M.D. ROSIE / KIMBERLEY [id number] / [id number] / [id number] / [id number] signed by Interface, Medical Information Specialist In at 06/26/2006 5:25 AM PSTdocume nted in this encounter Plan of Treatment Not on filedocumented as of this encounter Visit Diagnoses Not on filedocumented in this encounter"
--- OUTSIDE RECORDS SUMMARY | ~2020-02-24 | XMS | Encounter Summary ---
Demographics + + + | Address | [address] | | | [place] [address] | + + + | Home Phone | | + + + | Preferred Language | Unknown | + + + | Marital Status | | + + + | Latter-Day Affiliation | 1041 | + + + | Race | Unknown | + + + | Ethnic Group | Unknown | + + + Author + + + | Author | [facility] | | | and [place] | + + + | Organization | [facility] | | | and [place] [...] Team Providers + +------+ + | Care Airveyor Operator Name | Role | Phone | + +------+ + | Krista Alvarez | PCP | | | PA | | | + +------+ + Encounter Details +--------+ + + + + | Date | Type | Department | Care Team | Description | +--------+ + + + + | 10/17/ | Documentati | [facility] | Alexander Sanchez, | | | 2019 | on | PHYSIATRY [address] | PA-C [address] | | | | | [address] | [address] [place] | | | | | [place], [place] | [place] [address] | | | | | [address] | [phone] | | | | | [phone] | | | +--------+ + + + [...] documented as of this encounter Progress Notes Ansley Richardson 10/17/2018 10:34 AM PDTPain injection log received, Electronically sig imelda by Ansley Richardson at 10/17/2018 2:16 PM PDTdocumented in this encounter Plan of Treatment Not on filedocumented as of this encounter Visit Diagnoses Not on filedocumented in this encounter"
[~2020-02-24 17:09] MED LIST changes: +CEFDINIR300 MG PO; +FUROSEMIDE40 MG PO; +NITROFURANTOIN100 M1 PO; +PULMICORT FLE180 MCG INH; +SERTRALINE HCL50 MG PO; +TIZANIDINE HCL4 MG PO; +TRAZODONE HCL50 MG PO; +VENTOLIN HFA18 GM INH
--- OUTSIDE RECORDS SUMMARY | 2020-02-24 17:12 | XMS ---
PreManage Notification: JAVI MARC Security Spanish Speaking Nanny Events No recent Security Events currently on file CRITERIA MET - History of Sepsis Dx - PDMP CARE PROVIDERS DION RODRÍGUEZ Physician Bone Process Operator 09/16/2019-Current PHONE: Unknown Jose Luis has no Care Guidelines for this patient. E.Samantha VISIT COUNT (12 MO.) 3 [facility] TOTAL 3 NOTE: Visits indicate total known visits. ED/UCC VISIT TRACKING (12 MO.) 02/24/2020 17:09 [facility] [place] TYPE: Emergency COMPLAINT: - FALL/L ANKLE PAIN 10/25/2019 12:40 [facility] [place] TYPE: Emergency COMPLAINT: - FEVER, BODY ACHES 09/13/2019 16:19 [facility] [place] TYPE: Emergency COMPLAINT: - BACK PAIN DIAGNOSES: - residential (current) use of oral hypoglycemic drugs - Other residential (current) drug therapy - Allergy status to penicillin - Old myocardial infarction - Bee allergy status - Low back pain - Nicotine dependence, unspecified, uncomplicated - Type 2 diabetes mellitus without complications - ad terminal makeup operator (current) use of aspirin - Chronic obstructive pulmonary disease, unspecified - Anxiety disorder, unspecified INPATIENT VISIT TRACKING (12 MO.) 10/25/2019 15:[address] [facility] [place] TYPE: Medical Surgical COMPLAINT: - SEPSIS, PNEUMONIA DIAGNOSES: - Other exterminator (current) drug therapy - Acute kidney failure, unspecified - Acquired absence of lung [part of] - Type 2 diabetes mellitus without complications - Allergy status to penicillin - Personal history of other malignant neoplasm of bronchus and - residential (current) use of opiate analgesic - residential (current) use of inhaled steroids - ad terminal makeup operator (current) use of inhaled steroids - residential (current) use of aspirin - Pneumonia due to Pseudomonas - Type 2 diabetes mellitus without complications - Pain, unspecified - Chronic obstructive pulmonary disease with acute lower respir - Adverse effect of sulfonamides, initial encounter - Sepsis due to Hemophilus influenzae - Acquired absence of lung [part of] - Gastro-esophageal reflux disease without esophagitis - Other exterminator (current) drug therapy - Hypo-osmolality and hyponatremia - Other nonspecific abnormal finding of lung field - ad terminal makeup operator (current) use of aspirin - Allergy status to sulfonamides status - residential (current) use of oral hypoglycemic drugs - Pneumonia due to Pseudomonas - Allergy status to penicillin - residential (current) use of oral hypoglycemic drugs - Nicotine dependence, unspecified, uncomplicated - Chronic obstructive pulmonary disease with acute lower respir - Personal history of other malignant neoplasm of bronchus and - Nicotine dependence, unspecified, uncomplicated - Other nonspecific abnormal finding of lung field - Pneumonia due to Hemophilus influenzae - Do not resuscitate - Unspecified mood [affective] disorder - Hypo-osmolality and hyponatremia - Sepsis, unspecified organism - Do not resuscitate - Generalized skin eruption due to drugs and medicaments taken - Pain, unspecified - Hypertensive heart disease with heart failure - Adverse effect of sulfonamides, initial encounter - Sepsis due to Hemophilus influenzae - Gastro-esophageal reflux disease without esophagitis - ad terminal makeup operator (current) use of opiate analgesic - Allergy status to sulfonamides status - Hypertensive heart disease with heart failure - Chronic diastolic (congestive) heart failure - Sepsis due to Pseudomonas - Generalized skin eruption due to drugs and medicaments taken - Acute kidney failure, unspecified - Chronic diastolic (congestive) heart failure - Sepsis due to Pseudomonas - Unspecified mood [affective] disorder - Pneumonia due to Hemophilus influenzae [email or web address]
== END 2020-02-24 18:56 | disposition home or self-care (01) ==
LOC: ED 17:09
DX: S92.252A Displaced fracture of navicular [scaphoid] of left foot, initial encounter for closed fracture (principal); E11.9 Type 2 diabetes mellitus without complications; J44.9 Chronic obstructive pulmonary disease, unspecified; I25.2 Old myocardial infarction; F41.9 Anxiety disorder, unspecified; F17.200 Nicotine dependence, unspecified, uncomplicated; Z88.8 Allergy status to other drugs, medicaments and biological substances; Z88.0 Allergy status to penicillin; Z88.2 Allergy status to sulfonamides; Z91.030 Bee allergy status; Z79.899 Other long term (current) drug therapy; Z79.82 Long term (current) use of aspirin; X58.XXXA Exposure to other specified factors, initial encounter
CPT/HCPCS: 73610; 73630; 99283-25

== ENCOUNTER 2021-05-03 18:40 | Emergency (ER) | payer MEDICARE ==
[~2021-05-03] VITALS: Ht 154.9 cm; Wt 57.6 kg
--- OUTSIDE RECORDS SUMMARY | 2021-05-03 18:44 | XMS ---
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 Georgette VISIT COUNT (12 MO.) 1 MELODY Ann TOTAL 1 NOTE: Visits indicate total known visits. ED/UCC VISIT TRACKING (12 MO.) 05/03/2021 18:41 [place] TYPE: Emergency COMPLAINT: - BACK PAIN INPATIENT VISIT TRACKING (12 MO.) No inpatient visits to display in this time frame [email or web address]
[2021-05-03] MEDS ORDERED: TIZANIDINE HCL2 MG PO (21:40)
== END 2021-05-03 22:52 | disposition home or self-care (01) ==
LOC: ED 18:40
DX: M54.6 Pain in thoracic spine (principal); G89.29 Other chronic pain; E11.22 Type 2 diabetes mellitus with diabetic chronic kidney disease; J44.9 Chronic obstructive pulmonary disease, unspecified; N18.9 Chronic kidney disease, unspecified; I25.2 Old myocardial infarction; F17.200 Nicotine dependence, unspecified, uncomplicated; Z88.0 Allergy status to penicillin; Z88.2 Allergy status to sulfonamides; Z91.030 Bee allergy status; Z91.048 Other nonmedicinal substance allergy status; Z79.84 Long term (current) use of oral hypoglycemic drugs; Z79.82 Long term (current) use of aspirin; Z79.899 Other long term (current) drug therapy
CPT/HCPCS: 99283